=== PATIENT | female | born 1950 | race Caucasian/White ===

== ENCOUNTER → 2016-10-15 06:54 | Day surgery (SDC) | payer MEDICARE, MEDICAID ==
--- NOTE | 2016-10-06 16:52 | HP ---
PREOPERATIVE HISTORY AND PHYSICAL: DATE OF ADMISSION: 10/15/16 This patient is scheduled for Same-Day Surgery admission by Dr. Ortiz on , 10/15/16. DATE OF PREOPERATIVE HISTORY AND PHYSICAL EXAMINATION: 10/05/16 ATTENDING SURGEON: Rahul Ortiz MD (dictated by Alex Mishra NP) CHIEF COMPLAINT: Right breast cancer. HISTORY OF PRESENT ILLNESS: The patient is a 66-year-old female referred to Dr. Ortiz from Dr. Olivares for evaluation of a new right breast cancer. This was found on screening mammography. 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 She denies any palpable masses or nipple discharge or previous breast disease or previous biopsies. There is no known family history of breast or ovarian cancer. The patient was on control pills many years ago, but has not taken any kind of hormones in over [address] Ortiz examined the patient and reviewed the above findings with her and has recommended mammo-guided needle localization, wide excision of the right breast cancer with sentinel lymph node biopsy. Dr. Ortiz described the nature of the surgical procedure, the rationale for the procedure, the relevant risks, benefits, and alternatives and today, I reviewed the typical Same-Day Surgery and the expected postoperative care and recovery. The patient has had a chance to ask questions and stated that she understands the information and is satisfied with the answers given to her questions. She will sign surgical consent on the day of surgery. PAST MEDICAL HISTORY: Multiple sclerosis diagnosed approximately 40 years ago and she is essentially wheelchair bound now; hypertension; type 2 diabetes; nephrolithiasis; and admissions to [facility] for sepsis in 2016. PAST SURGICAL HISTORY: Laparoscopic cholecystectomy; kidney stone removal right and left in 2016. OB HISTORY: 2, para 2. She is postmenopausal. MEDICATIONS: 1. Baclofen 20 mg p.o. q.i.d. and 1-1/2 tablets at bedtime. 2. Nitrofurantoin 100 mg p.o. daily. 3. Carbamazepine 200 mg p.o. b.i.d. 4. Metoprolol ER 100 mg p.o. daily. 5. Oxybutynin 5 mg p.o. b.i.d. 6. Glyburide 5 mg p.o. daily. 7. Losartan 100 mg p.o. daily. 8. Advil as needed. 9. Hydrocodone/acetaminophen 5/325 mg 1 tablet every 4 to 6 hours p.r.n. and this is for back pain and she does not take it on a daily basis. 10. Multivitamin daily. ALLERGIES: LISINOPRIL caused lips and facial swelling and SULFA caused some type of unspecified reaction in childhood. FAMILY HISTORY: No known bleeding tendencies, clotting disorders, or anesthesia complications. SOCIAL HISTORY: She is and lives with her . She quit smoking over 40 years ago. She denies the use of alcohol or other substances. REVIEW OF SYSTEMS: She denies any chest pain, pressure, palpitations, or history of myocardial infarction. She is treated for hypertension. She denies any history of deep vein thrombosis or pulmonary embolism. She denies any respiratory conditions or complaints. She is a type 2 diabetic and she does not check her fingerstick blood sugars. Dr. Olivares follows her hemoglobin A1c every 6 months. She denies any previous anesthesia complications. She denies any gastrointestinal conditions or complaints. She denies any bleeding tendencies and has never received a blood transfusion. She self-catheterizes approximately 6 times a day. She has a history of bilateral kidney stones. No current pain with urination or flank pain. She was diagnosed with multiple sclerosis approximately 40 years ago and is wheelchair bound. PHYSICAL EXAMINATION GENERAL SURVEY: The patient is a 66-year-old female, in no acute distress, seated in a wheelchair. VITAL SIGNS: Height approximately 61 inches, weight 134 pounds, body mass index 25.3, blood pressure 106/70, pulse 74 and regular, respiratory rate 18, and temperature 96.9 tympanic. HEENT: Benign. NECK: Supple. No cervical lymphadenopathy. BACK: No CVA tenderness. LUNGS: Breath sounds bilaterally clear and equal. BREASTS: Symmetrical without nipple changes or nipple discharge. The right breast has a puncture site in the upper inner quadrant consistent with previous biopsy and there is faint nodularity in that region and also superficial skin irritation from a Band-Aid. Left breast without discrete masses. There is no axillary or supraclavicular lymphadenopathy bilaterally. HEART: Regular rate and rhythm. No murmurs or rubs appreciated. ABDOMEN: Active bowel sounds, soft, and nondistended. No obvious masses, but exam is limited by seated position. EXTREMITIES: Warm without skin ulcerations or edema. PELVIC: Exams deferred. RECTAL: Exams deferred. NEUROLOGIC: Alert and oriented x3. SKIN: Warm, dry, intact. IMPRESSION: Right breast cancer. PLAN: Same-Day Surgery admission to Dr. Ortiz's service on , 10/15/16 , for mammo-guided needle localization, wide excision of the right breast cancer , and sentinel lymph node biopsy. ALEX MISHRA NP CC: Rahul Ortiz MD at [facility]; Arcenio Olivares MD * [id number]/[facility] #: [id number] [facility]
[~2016-10-15 06:54] MED LIST: Buffered Lidocaine 1% SYR 3ML* 3 ML/SYR SYRINGE INTRADERM ONE; Bupivacaine 0.5% W/EPI SDV* 30 ML VIAL ONE; Dexamethasone IV* 4 MG/ML 1 ML (4 MG) ONE; DiMENhydriNATE IV* 50 MG/ML VIAL IV PUSH PRN; DiMENhydriNATE IV* 50 MG/ML VIAL ONE; EPHEDrine (Pressors)* 50 MG/ML VIAL ONE; Famotidine IV* 10 MG/ML 2 ML (20 mg) IV ONE; Famotidine IV* 10 MG/ML 2 ML (20 mg) ONE; HYDROmorphone INJ* 1 MG/ML CARPUJECT SYRINGE IV PRN; Ketorolac INJ* 30 MG/ML 1 ML VIAL ONE; Lidocaine 1% INJ* 10 MG/ML 30 ML SDV ONE; Lidocaine 2% PF * 5 ML VIAL ONE; Lidocaine 2.5%/Prilocain 2.5%* 5 GM TUBE ONE; Midazolam* 1 MG/ML 5 ML VIAL (5 MG) ONE; Ondansetron INJ* 2 MG/ML VIAL ONE; Phenylephrine IV* 40 MCG/ML 10 ML SYRINGE ONE; Propofol* 10 MG/ML 20 ML BTL IV PUSH ONE; ceFAZolin 2 GM PREMIX (*) 2 GM/50 ML BAG IVPB ONE; fentaNYL* 50 MCG/ML 2 ML VIAL (100 MCG VIAL) ONE; oxyCODONE/Acetamin 5/325 MG* TAB PO PRN
--- NOTE | 2016-10-15 10:05 | RAD ---
PROCEDURE: Mammographic needle/wire localization of the right breast PREOPERATIVE DIAGNOSIS: Breast cancer POSTOPERATIVE DIAGNOSIS: Same COMPARISONS: September 24, 2016 HEAD BAGGAGE PORTER: Kristal Andrews MD ANESTHESIA: Local anesthesia with 1% lidocaine without epinephrine FLUOROSCOPY TIME: None CONTRAST: None PROCEDURAL NARRATIVE: The procedure was explained to the patient who indicated that she understood. Written and verbal informed consent was obtained. An opportunity was given to ask and answer questions. A timeout was performed. The patient was prepped and draped in the usual sterile fashion. Using mammographic guidance, a needle/wire localization system was advanced to the target lesion in the right breast. Once position was confirmed, the needle was removed using pin pull technique. Post localization mammography was performed. The wound was dressed and the wire was secured. FINDINGS: A biopsy marker clip is noted in the right breast. After localization, the hook-wire is noted with the neck of the wire in close proximity to the biopsy marker clip SPECIMENS: Pending COMPLICATIONS: None DISPOSITION: The patient tolerated the procedure well, without complications during or immediately following the procedure. IMPRESSION: TECHNICALLY SUCCESSFUL, UNCOMPLICATED, NEEDLE/WIRE LOCALIZATION OF THE RIGHT BREAST FOR THE PURPOSES OF EXCISIONAL BIOPSY.
--- NOTE | 2016-10-15 12:09 | RAD ---
HISTORY: Breast cancer. Lymphoscintigraphy of the breast for the purposes of sentinel node identification. COMPARISONS: Mammogram dated September 24, 2016 TECHNIQUE: Previous imaging was reviewed. The procedure was explained to the patient who indicated that she understood. Written and verbal informed consent was obtained, with an opportunity to ask and answer questions. The breast was marked. A timeout was performed. The patient was prepped and draped in the usual sterile fashion. Technetium 99m sulfur colloid was administered in a subdermal fashion in 4 divided aliquots in a 180 degree arc along the areolar margin of the right breast, centered on the position of the primary breast lesion. Cine and planar imaging was performed. The first appearing axillary node was identified with the overlying skin marked. DOSE: Technetium 99m sulfur colloid, 0.316 millicuries, injected at 11:15 AM on October 15, 2016 FINDINGS: Uptake is noted within a right axillary lymph node. The site of uptake is marked on the overlying skin. OTHER: None IMPRESSION: TECHNICALLY SUCCESSFUL, UNCOMPLICATED, LYMPHOSCINTIGRAPHY OF THE RIGHT BREAST FOR THE PURPOSES OF SENTINEL NODE LOCALIZATION.
[2016-10-15 15:49] VITALS: BP 149/78
--- NOTE | 2016-10-16 03:06 | OP ---
DATE OF OPERATION: 10/15/16 [facility] DATE OF : 52 SURGEON: Dr. Ortiz. NUCLEAR ENGINEER: None. ANESTHESIOLOGIST: Dr. Peña. ANESTHESIA: General anesthetic, local infiltration. PRE-OP DIAGNOSIS: Right breast carcinoma. POST-OP DIAGNOSIS: Right breast carcinoma. OPERATIVE PROCEDURE: Needle localizing wide local excision, right breast cancer with sentinel lymph node biopsy. DESCRIPTION OF PROCEDURE: The patient was supine on the operative table. After adequate general anesthetic, compression stocking, Ann Hugger warmer, and intravenous antibiotics, the right breast and axillary region were prepped with antiseptic and draped in a sterile fashion. Local infiltrative anesthesia was administered. Incision was created in the breast approximately 5 cm in length and a piece of breast tissue approximately 6 x 5 x 4 cm is removed with the guide wire in the center. This was taken down to the pectoralis fascia and sent to x-ray with usual localizing sutures. X-ray confirmed the excision of the appropriate area and that was then forwarded on to pathology. Attention was then turned to the axilla where local anesthetic was administered. Approximately 3 to 4 cm incision was created. Dissection carried down. Two sentinel nodes were identified, one with the count of 1730 and the other with a count of 330. These were removed without difficulty. The basin count was almost nil after this and hemostasis was good. Closure was accomplished using 3- 0 and 5-0 Vicryl which was the same as closure for the breast site. Steri- Strips were placed. She tolerated the procedure well, was brought to recovery in good condition. No complications. No drains. Blood lossless than 30 mL. Sponge and instrument counts correct. Specimens as above. CC: Dr. Ortiz; Dr. Arcenio Olivares; [facility] * [id number]/[facility] #: [id number] [facility]
== END | disposition home or self-care (01) ==
LOC: OR 06:54
PROVIDERS: ATTEND Surgery
DX: C50.211 Malignant neoplasm of upper-inner quadrant of right female breast (principal); G35 Multiple sclerosis; E11.8 Type 2 diabetes mellitus with unspecified complications; Z79.84 Long term (current) use of oral hypoglycemic drugs; I10 Essential (primary) hypertension
CPT/HCPCS: 78195; 88307; 88341; 88342; A9270-GY; A9541; J0690; J1100; J1240; J1885; J2250; J2405; J2704; J3010

== ENCOUNTER 2017-06-30 14:30 | Observation (INO) | payer MEDICARE, MEDICAID ==
[2017-06-30] MEDS ORDERED: NS 0.9% IV ONE (15:33)
[2017-06-30 15:56] LABS: Hematocrit 43 % (35-47); Hemoglobin 14.6 g/dl (12.0-16.0); Mean Corpuscular HGB Conc 34 g/dl (31-36); Mean Corpuscular Hemoglobin 31 pg (27-31); Mean Corpuscular Volume 90 fL (80-97); Mean Platelet Volume 9 um3 (7.4-10.4); Red Blood Count 4.73 10^6/ul (4.0-5.4); Red Cell Distribution Width 14 % (10.5-15); White Blood Count 14.7 10^3/ul (3.5-10.8)
--- NOTE | 2017-06-30 16:10 | RAD ---
Indication: Urinary tract infection. Single frontal view of the chest performed at 1540 hours was reviewed. Comparison is made with previous exam dated July 11, 2016. No mediastinal shift is noted. Heart is of normal size and configuration. Lung nuñez appear clear. IMPRESSION: NO ACTIVE CARDIOPULMONARY DISEASE IS NOTED.
[2017-06-30 16:12] LABS: ALT 41 U/L (7-52); Albumin 4.3 g/dL (3.2-5.2); Alkaline Phosphatase 65 U/L (34-104); BUN/Creatinine Ratio 26.9 (8-20); Blood Urea Nitrogen 29 mg/dL (6-24); CO2 Carbon Dioxide 26 mmol/L (22-32); Calcium 9.9 mg/dL (8.6-10.3); Chloride 95 mmol/L (101-111); EGFR African American 65.3 (>60); EGFR Non-African American 50.8 (>60); Globulin 4.2 g/dL (2-4); Glucose 200 mg/dL (70-100); Sodium 129 mmol/L (133-145); Total Protein 8.5 g/dL (6.4-8.9)
[2017-06-30 16:19] LABS: Anion Gap 8 mmol/L (2-11)
[2017-06-30 16:20] LABS: Troponin I 0.05 ng/mL (<0.04)
[2017-06-30 16:27] LABS: Urine Bacteria 1+ (Absent); Urine Bilirubin Negative (Negative); Urine Glucose 3+(>=500 mg/dL) (Negative); Urine Nitrite Negative (Negative)
--- NOTE | 2017-06-30 17:41 | RAD ---
CLINICAL HISTORY: UTI, history of stones COMPARISON: June 10, 2016 TECHNIQUE: Multiple contiguous axial CT scans were obtained of the abdomen and pelvis, without intravenous contrast enhancement. Coronal and sagittal multiplanar reformations are submitted for review. Oral contrast was not administered. FINDINGS: The study is limited by the lack of intravenous contrast. This limits evaluation of the solid organs and vasculature. LUNG BASES: The lung bases are clear. LIVER: The liver is normal in shape, size, contour, and attenuation. BILE DUCTS: There is no intrahepatic or extrahepatic biliary dilatation. GALLBLADDER: The gallbladder is not visualized. Surgical clips are noted in the gallbladder fossa. PANCREAS: The pancreas is normal, without mass or ductal dilatation. SPLEEN: Normal in size and appearance. UPPER GI TRACT: Evaluation of the gastrointestinal tract is limited by incomplete gastric distention. The upper GI tract is unremarkable. SMALL BOWEL AND MESENTERY: The small bowel is normal in contour, course, and caliber. There is no obstruction or dilatation. COLON: The colon is normal in contour, course, caliber. There is no pericolonic inflammatory change. ADRENALS: Normal bilaterally. KIDNEYS: There is a nonobstructing left renal calyceal stone lower pole measuring 0.6 cm. BLADDER: The bladder is collapsed around a Mcwilliams catheter and is not well evaluated. PELVIC ORGANS: The uterus is fibroid. AORTA: There is calcific atherosclerotic disease of the abdominal aorta and its branches, without aneurysmal dilatation IVC: Unremarkable LYMPH NODES: There is no lymphadenopathy by size criteria. ABDOMINAL WALL: There is no evidence for abdominal wall hernia. BONES AND SOFT TISSUES: There are subcutaneous calcified granulomas along the buttocks bilaterally. OTHER: None IMPRESSION: 1. LEFT NEPHROLITHIASIS. 2. NO HYDRONEPHROSIS. 3. FIBROID UTERUS. 4. ATHEROSCLEROSIS.
[2017-06-30] MEDS ORDERED: Dextrose 50% Syringe 50 ML* 25 GM/50 ML SYRINGE IV PUSH PRN (18:00)
[2017-06-30] MEDS ORDERED: HYDROcodone/ACETAMIN 5-325 MG* 1 TAB PO PRN (18:03)
--- NOTE | 2017-06-30 18:22 | ED ---
Janeth Graham Alfonso, scribed for Hazel Michel MD on 06/30/17 at 1528 . Complex/Multi-Sys Presentation - HPI Summary HPI Summary: This patient is a 67 year old F presenting to [facility] accompanied by with a chief complaint of inability to catheterize herself since earlier today. She last self-catheterized herself yesterday. The patient rates the pain 0/10 in severity. Symptoms aggravated by nothing. Symptoms alleviated by nothing. Patient denies fever, and vomiting. She uses a wheelchair. - History Of Current Complaint Chief Complaint: EDGeneral Time Seen by Provider: 06/30/17 14:55 Hx Obtained From: Patient Onset/Duration: Sudden Onset, Lasting Hours, Still Present Timing: Constant Aggravating Factor(s): nothing Alleviating Factor(s): nothing Associated Signs And Symptoms: Negative: Vomiting, Fever - Allergies/Home Medications Allergies/Adverse Reactions: Allergies Allergy/AdvReac Type Severity Reaction Status Date / Time Lisinopril Allergy Severe facial Verified 10/15/16 07:18 swelling Sulfa Antibiotics Allergy Unknown Verified 10/15/16 07:18 Reaction Details Home Medications: Home Medications Anastrozole (NF) [Arimidex (NF)] 1 mg PO DAILY 06/30/17 [History Confirmed 06/30] Atorvastatin* [Lipitor*] 40 mg PO BEDTIME 06/30/17 [History Confirmed 06/30/17] Cholecalciferol TAB* [Vitamin D TAB*] 1,000 unit PO DAILY 06/30/17 [History Confirmed 06/30/17] Multivitamins/Minerals TAB* [Theragran/minerals TAB*] 1 tab PO DAILY 06/30/17 [ History Confirmed 06/30/17] Oxybutynin TAB* [Ditropan TAB*] 5 mg PO BID 06/30/17 [History Confirmed 06/30/17 ] carBAMazepine TAB(*) [TEGretol TAB(*)] 200 mg PO BID 06/30/17 [History Confirmed 06/30/17] glipiZIDE TAB.XL* [Glucotrol XL*] 5 mg PO DAILY 06/30/17 [History Confirmed 09/15] PMH/Surg Hx/FS Hx/Imm Hx Endocrine/Hematology History: Reports: Hx Diabetes - ON MEDS, WELL CONTROLLED PER PT Cardiovascular History: Reports: Hx Hypertension - ON MEDS GI History: Reports: Hx Gall Bladder Disease - cholecystectomy History: Reports: Hx Dialysis, Hx Kidney Infection, Hx Kidney Stones - CURRENT/ RIGHT STENT PLACEMENT, Other Problems/Disorders - neurogenic bladder - straight catherize 6-8x's a day Musculoskeletal History: Reports: Other Musculoskeletal History - MS, DOES NOT AMBULATE; IN WC, sacral pressure ulcer-almost healed Sensory History: Reports: Hx Contacts or Glasses - READING GLASSES Denies: Hx Hearing Aid Opthamlomology History: Reports: Hx Contacts or Glasses - READING GLASSES Neurological History: Reports: Hx Nerve Disease, Hx Seizures - MANY YRS AGO, Other Neuro Impairments/Disorders - MS - Cancer History Hx Chemotherapy: No Hx Radiation Therapy: No - Surgical History Surgery Procedure, Year, and Place: Cholecystectomy. LEFT STENT AND KIDNEY STONES X2. right and left kidney stone removal Hx Anesthesia Reactions: No Infectious Disease History: No Infectious Disease History: Denies: Traveled Outside the [place] in Last 30 Days - Family History Known Family History: Positive: Diabetes - Social History Lives: With Family Alcohol Use: None Substance Use Type: Reports: None Smoking Status (MU): Never Smoked Tobacco Have You Smoked in the Last Year: No Review of Systems Negative: Fever Negative: Vomiting Genitourinary: Other - inability to catheterize herself All Other Systems Reviewed And Are Negative: Yes Physical Exam - Summary Physical Exam Summary: General: Chronically ill appearing, no pain distress Skin: Warm, Skin Color Reflects Adequate Perfusion, Dry Eyes: EOMI, MARIYA ENT: Pharynx normal, TMs normal Neck: Supple, nontender Respiratory: CTA, breath sounds present, no rhonchi, no wheezes, no rales Cardiovascular: RRR, no murmur, no rub, no gallop Abdomen: Soft, nontender, distended bladder, no guarding, no rebound Bowel: Present Musculoskeletal: SANTIAGO, No edema Neuro: A&Ox3, CN intact 2-12, Doesn't move her bilateral LE. No sensations in bilateral LE. Psych: Affect/mood appropriate Triage Information Reviewed: Yes Vital Signs On Initial Exam: Initial Vitals Temp Pulse Resp BP Pulse Ox 97.8 F 73 18 97/57 98 06/30/17 14:31 06/30/17 14:31 06/30/17 14:31 06/30/17 14:31 06/30/17 14:31 Vital Signs Reviewed: Yes - Maple Coma Scale Coma Scale Total: 15 Diagnostics - Vital Signs Vital Signs Temp Pulse Resp BP Pulse Ox 06/30/17 15:12 69 19 93 06/30/17 14:31 97.8 F 73 18 97/57 98 - Laboratory Lab Results: Lab Results 06/30/17 06/30/17 06/30/17 Range/Units 15:40 15:40 15:40 WBC 14.7 H (3.5-10.8) 10^3/ul RBC 4.73 (4.0-5.4) 10^6/ul Hgb 14.6 (12.0-16.0) g/dl Hct 43 (35-47) % MCV 90 (80-97) fL MCH 31 (27-31) pg MCHC 34 (31-36) g/dl RDW 14 (10.5-15) % Plt Count 194 (150-450) 10^3/ul MPV 9 (7.4-10.4) um3 Neut % (Auto) 83.6 H (38-83) % Lymph % (Auto) 6.5 L (25-47) % [place] % (Auto) 9.4 H (1-9) % Eos % (Auto) 0.3 (0-6) % Baso % (Auto) 0.2 (0-2) % Absolute Neuts (auto) 12.3 H (1.5-7.7) 10^3/ul Absolute Lymphs (auto) 0.9 L (1.0-4.8) 10^3/ul Absolute Monos (auto) 1.4 H (0-0.8) 10^3/ul Absolute Eos (auto) 0 (0-0.6) 10^3/ul Absolute Basos (auto) 0 (0-0.2) 10^3/ul Absolute Nucleated RBC 0 10^3/ul Nucleated RBC % 0 INR (Anticoag Therapy) 0.92 (0.89-1.11) APTT 25.6 L (26.0-36.3) seconds Sodium 129 L (133-145) mmol/L Potassium TNP Chloride 95 L (101-111) mmol/L Carbon Dioxide 26 (22-32) mmol/L Anion Gap 8 (2-11) mmol/L BUN 29 H (6-24) mg/dL Creatinine 1.08 H (0.51-0.95) mg/dL Est GFR ( Amer) 65.3 (>60) Est GFR (Non-Af Amer) 50.8 (>60) BUN/Creatinine Ratio 26.9 H (8-20) Glucose 200 H (70-100) mg/dL Lactic Acid (0.5-2.0) mmol/L Calcium 9.9 (8.6-10.3) mg/dL Total Bilirubin 0.50 (0.2-1.0) mg/dL AST TNP ALT 41 (7-52) U/L Alkaline Phosphatase 65 (34-104) U/L Troponin I 0.05 H* (<0.04) ng/mL Total Protein 8.5 (6.4-8.9) g/dL Albumin 4.3 (3.2-5.2) g/dL Globulin 4.2 H (2-4) g/dL Albumin/Globulin Ratio 1.0 (1-3) Urine Color Urine Appearance Urine pH (5-9) Ur Specific [place] (1.010-1.030) Urine Protein (Negative) Urine Ketones (Negative) Urine Blood (Negative) Urine Nitrate (Negative) Urine Bilirubin (Negative) Urine Urobilinogen (Negative) Ur Leukocyte Esterase (Negative) Urine WBC (Auto) (Absent) Urine RBC (Auto) (Absent) Urine Bacteria (Absent) Urine Glucose (Negative) 06/30/17 06/30/17 06/30/17 Range/Units 15:40 15:55 16:53 WBC (3.5-10.8) 10^3/ul RBC (4.0-5.4) 10^6/ul Hgb (12.0-16.0) g/dl Hct (35-47) % MCV (80-97) fL MCH (27-31) pg MCHC (31-36) g/dl RDW (10.5-15) % Plt Count (150-450) 10^3/ul MPV (7.4-10.4) um3 Neut % (Auto) (38-83) % Lymph % (Auto) (25-47) % [place] % (Auto) (1-9) % Eos % (Auto) (0-6) % Baso % (Auto) (0-2) % Absolute Neuts (auto) (1.5-7.7) 10^3/ul Absolute Lymphs (auto) (1.0-4.8) 10^3/ul Absolute Monos (auto) (0-0.8) 10^3/ul Absolute Eos (auto) (0-0.6) 10^3/ul Absolute Basos (auto) (0-0.2) 10^3/ul Absolute Nucleated RBC 10^3/ul Nucleated RBC % INR (Anticoag Therapy) (0.89-1.11) APTT (26.0-36.3) seconds Sodium (133-145) mmol/L Potassium 4.2 Chloride (101-111) mmol/L Carbon Dioxide (22-32) mmol/L Anion Gap (2-11) mmol/L BUN (6-24) mg/dL Creatinine (0.51-0.95) mg/dL Est GFR ( Amer) (>60) Est GFR (Non-Af Amer) (>60) BUN/Creatinine Ratio (8-20) Glucose (70-100) mg/dL Lactic Acid 1.3 (0.5-2.0) mmol/L Calcium (8.6-10.3) mg/dL Total Bilirubin (0.2-1.0) mg/dL AST 27 ALT (7-52) U/L Alkaline Phosphatase (34-104) U/L Troponin I (<0.04) ng/mL Total Protein (6.4-8.9) g/dL Albumin (3.2-5.2) g/dL Globulin (2-4) g/dL Albumin/Globulin Ratio (1-3) Urine Color Yellow Urine Appearance Cloudy Urine pH 5.0 (5-9) Ur Specific [place] 1.011 (1.010-1.030) Urine Protein 2+(100 mg/dl) H (Negative) Urine Ketones Negative (Negative) Urine Blood 2+ H (Negative) Urine Nitrate Negative (Negative) Urine Bilirubin Negative (Negative) Urine Urobilinogen Negative (Negative) Ur Leukocyte Esterase 3+ H (Negative) Urine WBC (Auto) 3+(>20/hpf) H (Absent) Urine RBC (Auto) 3+(>10/hpf) H (Absent) Urine Bacteria 1+ H (Absent) Urine Glucose 3+(>=500 mg/dl) H (Negative) Result Diagrams: 06/30/17 15:40 06/30/17 16:53 Lab Statement: Any lab studies that have been ordered have been reviewed, and results considered in the medical decision making process. - Radiology CXR Radiology Interpretation Completed By: Radiologist - NO ACTIVE CARDIOPULMONARY DISEASE IS NOTED. ED physician has reviewed this radiology report and agrees. - CT A/P CT Interpretation Completed By: Radiologist - 1. LEFT NEPHROLITHIASIS. 2. NO HYDRONEPHROSIS. 3. FIBROID UTERUS. 4. ATHEROSCLEROSIS. ED physician has reviewed this radiology report and agrees. Complex Multi-Symp Course/Dx Course Of Treatment: 67 yo female wit ms and uti, low bp and elevated hr given 30cc/kg of iv fluid as a bolus and ceftriaxone case discussed with Dr. Mas for admission - Diagnoses Provider Diagnoses: Acute urinary tract infection - Physician Notifications Discussed Care Of Patient With: Naida Mas Time Discussed With Above Provider: 16:44 Instructed by Provider To: Other - Consulted Dr. Mas (hospitalist) who agrees to admit. Discharge - Discharge Plan Condition: Stable Disposition: ADMITTED TO [facility] The documentation as recorded by the Janeth smith Alfonso accurately reflects the service I personally performed and the decisions made by , Hazel Michel MD.
[2017-06-30] MEDS: NS 0.9% 1000 ML* 1,000 ML IV SCH (19:47)
--- NOTE | 2017-06-30 21:55 | HP ---
CC: Dr. Arcenio Olivaers * HISTORY AND PHYSICAL: DATE OF ADMISSION: 06/30/17 PRIMARY CARE PROVIDER: Arcenio Olivares MD ATTENDING PHYSICIAN: Giacomo Redding MD * (dictated by Netta Chavez NP) . CHIEF COMPLAINT: Generalized weakness, fatigue. HISTORY OF PRESENT ILLNESS: Ms. Em is a 67-year-old female with a past medical history significant for multiple sclerosis, seizure disorder, type 2 diabetes mellitus, hypertension, neurogenic bladder, kidney stones, and breast cancer who presents to the emergency room with her with a complaint of inability to catheterize herself since yesterday afternoon due to generalized weakness and fatigue. The patient states that it was not due to the inability to pass a catheter into her urethra, but a result of feeing to weak to get to the bathroom. The patient denied any fever, chills, chest pain, shortness of breath, cough, nausea, vomiting, or diarrhea. The patient is wheelchair bound at baseline due to her multiple sclerosis. The patient reports feeling hungry and then eating and drinking well. While in the emergency room, the patient had labs that were significant for a white blood cell count of 14.7, she had a troponin of 0.05. Urinalysis showing 2+ protein, 2+ blood, 3+ leukocyte esterase, 3+ wbc's, 3+ rbc's, 1+ bacteria, and 3+ glucose. She had a lactic acid of 1.3. While in the ER, she was noted to be hypotensive with systolic blood pressures in the 80s to 90s. She had a chest x-ray showing no active cardiopulmonary disease. She also had an abdomen and pelvis CT showing a left nephrolithiasis. No hydronephrosis, fibroid uterus or atherosclerosis. The hospitalist was asked to evaluate the patient for admission. PAST MEDICAL HISTORY: 1. Multiple sclerosis. 2. Seizure disorder. 3. Type 2 diabetes mellitus. 4. Hypertension. 5. Neurogenic bladder. 6. Breast cancer. 7. Renal calculi. PAST SURGICAL HISTORY: 1. Status post cholecystectomy. 2. Status post right breast lumpectomy. HOME MEDICATIONS: Include; 1. Multivitamin one tablet oral daily. 2. Salem 5/325 mg one tablet oral every 6 hours as needed for pain. 3. Vitamin D 1000 units orally daily. 4. Atorvastatin 40 mg orally daily at bedtime. 5. Glipizide XL 5 mg orally daily. 6. Oxybutynin 5 mg oral twice daily. 7. Metoprolol succinate 100 mg oral every morning. 8. Tegretol 200 mg oral twice daily. 9. Losartan 100 mg oral every evening. 10. Baclofen 20 mg oral four times daily and at bedtime as needed. 11. Anastrozole 1 mg oral daily. ALLERGIES: 1. LISINOPRIL. 2. SULFA. FAMILY HISTORY: The patient's father passed in his 70s from a myocardial infarction. Her paternal grandmother also had a history of coronary artery disease. The patient's father and paternal grandmother had a history of diabetes. The patient's mother passed in her 70s from leukemia. SOCIAL HISTORY: The patient denies tobacco, alcohol, or recreational drug use. She lives with her . Her , Tyrel Em will be her surrogate decision maker in the event if she is unable to make decisions for herself. REVIEW OF SYSTEMS: I performed a 14-point review of systems. All the pertinent positives and negatives are mentioned in the history of present illness. The patient denies any rashes, diarrhea. The remaining review of systems are negative. PHYSICAL EXAMINATION GENERAL APPEARANCE: The patient is alert, pleasant, appears to be in no acute distress. VITAL SIGNS: Temperature 97.8, heart rate 80, respiratory rate 13, O2 sat 94% on room air, blood pressure 92/55. HEENT: Normocephalic, atraumatic. Pupils are equal and reactive to light. Extraocular movements are intact. RESPIRATORY: There is no accessory muscle use and the lungs are clear to auscultation bilaterally. CARDIOVASCULAR: Regular rate and rhythm. S1 and S2 present. There are no murmurs, rubs, or gallops heard. ABDOMEN: Soft, kind of tender in the right lower quadrant, and nondistended. There were bowel sounds present x4. EXTREMITIES: There is no lower extremity edema. DP and PT pulses are 2+ and symmetric. MUSCULOSKELETAL: There is no clubbing or cyanosis noted. The patient exhibits good strength in all extremities. NEUROLOGIC: The patient is alert and oriented x4. Cranial nerves II through XII are grossly intact. PSYCHOLOGICAL: The patient is calm and cooperative. SKIN: There are no rashes or abnormalities seen. DIAGNOSTIC STUDIES/LABORATORY DATA: Sodium 129, potassium 4.2, chloride 95, CO2 26, BUN 29, creatinine 1.08, and glucose 200. White blood cell count 14.7, hemoglobin 14.6, hematocrit 43, and platelet count 194. Troponin 0.05. Lactic acid 1.3. Urinalysis is significant for protein 2+, blood 2+, leukocyte esterase 3+, white blood cell count 3+, rbc 3+, bacteria 1+, and glucose 3+. 1. Chest x-ray from today. Radiologist impression: No active cardiopulmonary disease is noted. 2. Abdomen and pelvis CT from today. Radiologist impression: Left nephrolithiasis, no hydronephrosis, fibroid uterus, and atherosclerosis. IMPRESSION: Ms. Em is a 67-year-old female with a past medical history significant for multiple sclerosis, seizure disorder, diabetes mellitus type 2, hypertension, neurogenic bladder, breast cancer, and renal calculi who presents to the emergency room with complaints of fatigue and generalized weakness and the inability to straight cath herself at home and was found to have a urinary tract infection. She will be admitted on observation for a possible urinary tract infection. ASSESSMENT/PLAN: 1. Urinary tract infection. The patient received a dose of ceftriaxone in the emergency room. We will continue her on ceftriaxone. The patient is meeting sepsis criteria according to systemic inflammatory response syndrome criteria with leukocytosis and tachypnea while in the emergency room. She was meeting qSOFA criteria for sepsis with 1 point for hypotension upon arrival to the ED. The patient has received a total of 1700 mL IV fluids while in the emergency room. She will be continued on normal saline. The patient had a Mcwilliams catheter placed while in the emergency room. We will continue that overnight and consider removing it in the morning. 2. Acute kidney injury. I suspect this is post renal as the patient has been unable to straight cath herself and retaining urine. We will send off a urine sodium and creatinine to check a FENa. We will also give her some IV fluids. 3. Hyponatremia. I suspect this is due to hypovolemia. We will give the patient normal saline overnight and recheck her labs in the morning. 4. Elevated troponin. The patient denies any chest pain, shortness of breath, diaphoresis or other signs of acute coronary syndrome. I suspect this is the patient's baseline and may be secondary to demand ischemia. No further workup is needed at this time. 5. Diabetes mellitus. The patient states that her glucose is well controlled at home on her glipizide. We will hold her glipizide while she is in the hospital. We will check fingersticks a.c. and h.s. with a lispro sliding scale and consistent carbohydrate diet. 6. Seizure disorder. We will continue the patient's home Tegretol and she will be placed on seizure precautions. 7. Hypertension. The patient is actually hypotensive at this time. We will hold her metoprolol succinate and losartan, I suspect part of her hypertension is in the setting of her being ill and continuing to take her antihypertensive both last night and this morning. We will resume when appropriate. 8. Fluids, electrolytes, and nutrition. The patient will be on a consistent carbohydrate diet. 9. Code status. Full code. 10. DVT prophylaxis. The patient is at high risk and will be placed on subcu heparin. 11. Disposition. Observation. TIME SPENT: The time for this admission was approximately 50 minutes, greater than half of that was spent with the patient and discussing past medical history, medications, and the events leading up to her arrival today and performing her physical examination. The case has been reviewed with the attending, Dr. Redding who agrees with the plan of care. Reviewed by ADRIÁN LUCIO 07/07/17 0915 [id number]/[facility] #: [id number] TORI
[2017-06-30] MEDS: carBAMazepine TAB(*) 200 MG PO SCH (22:40)
[2017-06-30] MEDS: Oxybutynin TAB* 5 MG PO SCH (22:40)
[2017-06-30] MEDS: Baclofen TAB* 20 MG PO SCH (22:40)
[2017-06-30] MEDS: Heparin VIAL(*) 5000 UNITS/ML VIAL (FIVE THOUSAND) SUBCUT SCH (22:40)
[2017-06-30] MEDS: Atorvastatin* 40 MG TAB PO SCH (22:40)
[2017-07-01] MEDS: Heparin VIAL(*) 5000 UNITS/ML VIAL (FIVE THOUSAND) SUBCUT SCH ×3 (05:56→21:03)
[2017-07-01 06:25] LABS: Hematocrit 34 % (35-47); Hemoglobin 11.7 g/dl (12.0-16.0); Mean Corpuscular HGB Conc 34 g/dl (31-36); Mean Corpuscular Hemoglobin 31 pg (27-31); Mean Corpuscular Volume 92 fL (80-97); Mean Platelet Volume 9 um3 (7.4-10.4); Red Blood Count 3.74 10^6/ul (4.0-5.4); Red Cell Distribution Width 14 % (10.5-15); White Blood Count 7.6 10^3/ul (3.5-10.8)
[2017-07-01] MEDS: NS 0.9% 1000 ML* 1,000 ML IV SCH ×2 (07:31→16:13)
[2017-07-01] MEDS: Insulin LISPRO* 1 UNITS UNIT SUBCUT SCH ×3 (07:36→16:20)
[2017-07-01 07:38] LABS: Calcium 8.5 mg/dL (8.6-10.3); EGFR African American 92.3 (>60); EGFR Non-African American 71.8 (>60); Potassium 3.9 mmol/L (3.5-5.0)
[2017-07-01] MEDS: carBAMazepine TAB(*) 200 MG PO SCH ×2 (09:39→21:02)
[2017-07-01] MEDS: Multivitamins/Minerals TAB PO SCH (09:39)
[2017-07-01] MEDS: Cholecalciferol TAB* 1000 UNITS PO SCH (09:39)
[2017-07-01] MEDS: Oxybutynin TAB* 5 MG PO SCH ×2 (09:39→21:02)
[2017-07-01] MEDS: Baclofen TAB* 20 MG PO SCH ×4 (09:39→21:02)
--- NOTE | 2017-07-01 12:21 | PN ---
Subjective Date of Service: 07/01/17 Interval History: Patient seen and examined at bedside. Pt states that she is feeling much better today. Denies fever, chills, shortness of breath, chest discomfort, N/V/D. Pt feels that she may be ready for discharge later today. Pt's is nervous to take her home today, because he always feels she gets sent home to early and has to come back. Family History: Unchanged from Admission Social History: Unchanged from Admission Past Medical History: Unchanged from Admission Objective Active Medications: Hydrocodone Bitart/Acetaminophen (Oliver 5-325 Tab*) 1 tab PO Q6H PRN Reason: PAIN Atorvastatin Calcium (Lipitor*) 40 mg PO BEDTIME SIMÓN Baclofen (Lioresal Tab*) 20 mg PO QID SIMÓN Carbamazepine (Tegretol Tab(*)) 200 mg PO BID SIMÓN Cholecalciferol (Vitamin D Tab*) 1,000 units PO DAILY SIMÓN Dextrose (D50w Syringe 50 Ml*) 12.5 gm IV PUSH .FOR FS < 60 - SS PRN Reason: FS < 60 Heparin Sodium (Porcine) (Heparin Vial(*)) 5,000 units SUBCUT Q8HR SIMÓN Sodium Chloride (Ns 0.9% 1000 Ml*) 1,000 mls @ 100 mls/hr IV PER RATE SIMÓN Ceftriaxone Sodium 1,000 mg/ (Sodium Chloride) 50 mls @ 200 mls/hr IVPB Q24H SIMÓN Insulin Human Lispro (Humalog*) 0 - 5 units SUBCUT AC SIMÓN Multivitamins/Minerals (Theragran/Minerals Tab*) 1 tab PO DAILY SIMÓN Oxybutynin Chloride (Ditropan Tab*) 5 mg PO BID [facility] Vital Signs 06/30/17 06/30/17 06/30/17 18:00 19:40 23:23 Temperature 98.1 F 98.8 F Pulse Rate 83 93 Respiratory 20 18 16 Rate Blood Pressure 132/70 131/77 (mmHg) O2 Sat by Pulse 97 98 87 Oximetry 06/30/17 07/01/17 07/01/17 23:32 03:47 03:56 Temperature 98.9 F Pulse Rate 80 122 112 Respiratory 17 Rate Blood Pressure 133/60 (mmHg) O2 Sat by Pulse 94 Oximetry 07/01/17 07:28 Temperature 99.7 F Pulse Rate 115 Respiratory 16 Rate Blood Pressure 138/54 (mmHg) O2 Sat by Pulse 93 Oximetry Oxygen Devices in Use Now: None Appearance: NAD, sitting up in bed Ears/Nose/Mouth/Throat: Mucous Membranes Moist Respiratory: Symmetrical Chest Expansion and Respiratory Effort, Clear to Auscultation Cardiovascular: NL Sounds; No Murmurs; No JVD, RRR Abdominal: NL Sounds; No Tenderness; No Distention Extremities: No Edema Skin: - - Pressure injury to right lower gluteous Neurological: Alert and Oriented x 3, NL Muscle Strength and Tone Lines/Tubes/Other Access: Clean, Dry and Intact Peripheral IV - site benign Nutrition: Taking PO's Result Diagrams: 07/01/17 06:17 07/01/17 06:17 Additional Lab and Data: Assess/Plan/Problems-Billing Assessment: Ms. Em is a 67 yo female with PMH significant for MS, seizure disorder, DM, HTN, neurogenic bladder, breast cancer and renal calculi who presented to the emergency room with complaints of fatigue, generalized weakness and the inability to straight cath herself at home and was found to have a UTI. - Patient Problems (1) Acute urinary tract infection Code(s): N39.0 - URINARY TRACT INFECTION, SITE NOT SPECIFIED SNOMED Code(s): 790219756 Comment: - Afebrile and no leukocytosis - Urine culture pending - Continue ceftriaxone (2) ROSSANA (acute kidney injury) Code(s): N17.9 - ACUTE KIDNEY FAILURE, UNSPECIFIED SNOMED Code(s): 08395645 Comment: - Suspect this was pre-renal vs post-renal - Resolved after wise placement and IVFs (3) Hyponatremia Code(s): E87.1 - HYPO-OSMOLALITY AND HYPONATREMIA SNOMED Code(s): 96233033 Comment: - Suspect secondary to hypovolemia - Resolved with IVFs (4) Elevated troponin Code(s): R79.89 - OTHER SPECIFIED ABNORMAL FINDINGS OF BLOOD CHEMISTRY SNOMED Code(s): 138199939 Comment: - Denies chest pain - Suspect this is a baseline troponin - Likely secondary to demand ischemia. No further work up at this time (5) Pressure injury of skin Code(s): L89.90 - PRESSURE ULCER OF UNSPECIFIED SITE, UNSPECIFIED STAGE SNOMED Code(s): 169423005 Comment: - Pressure injury to right gluteous - Will have wound clinic eval wound - Frequent T+P (6) Diabetes Code(s): E11.9 - TYPE 2 DIABETES MELLITUS WITHOUT COMPLICATIONS SNOMED Code(s) : 90239238 Comment: - Glucose 160-180's - Continue Lispro SS (7) Multiple sclerosis Code(s): G35 - MULTIPLE SCLEROSIS SNOMED Code(s): 80154855 Comment: - Continue baclofen. - Follow up with Dr. Nur as needed. (8) Neurogenic bladder Code(s): N31.9 - NEUROMUSCULAR DYSFUNCTION OF BLADDER, UNSPECIFIED SNOMED Code (s): 695444033 Comment: - Chronic, pt straight caths at home. - Will remove urinary catheter prior to discharge (9) Seizure disorder Code(s): G40.909 - EPILEPSY, UNSP, NOT INTRACTABLE, WITHOUT STATUS EPILEPTICUS SNOMED Code(s): 794267216 Comment: - No seizure activity. - Continue tegretol and seizure precautions. (10) HTN (hypertension) Code(s): I10 - ESSENTIAL (PRIMARY) HYPERTENSION SNOMED Code(s): 31151171 Comment: - Normotensive, SBP 130's - Resume Losartan and metorpolol (11) DVT prophylaxis Code(s): LXH9023 - SNOMED Code(s): 545614450 Comment: - SQ heparin (12) Full code status Code(s): Z78.9 - OTHER SPECIFIED HEALTH STATUS SNOMED Code(s): 501282327 Status and Disposition: OBV. Discharge to home when medically stable.
[2017-07-01] MEDS ORDERED: cefTRIAXone VIAL(*) 1,000 MG in NS 0.9% 50 ML* 50 ML IVPB SCH (16:00)
[2017-07-01] MEDS ORDERED: Losartan TAB* 25 MG PO SCH (18:00)
[2017-07-01] MEDS: Atorvastatin* 40 MG TAB PO SCH (21:02)
[2017-07-01] MEDS ORDERED: Magnesium Hydroxide LIQ* 30 ML UDC PO PRN (21:08)
[2017-07-01] MEDS ORDERED: Sodium Phosphate ADULT ENEMA* 118 ml bottle PR PRN (21:08)
[2017-07-02] MEDS: Collagenase 250 MG/GM OINT* 30 GM TOPICAL SCH ×3 (03:22→09:01)
[2017-07-02] MEDS: Heparin VIAL(*) 5000 UNITS/ML VIAL (FIVE THOUSAND) SUBCUT SCH (05:39)
[2017-07-02 06:23] LABS: Hematocrit 31 % (35-47); Hemoglobin 10.4 g/dl (12.0-16.0); Mean Corpuscular HGB Conc 34 g/dl (31-36); Mean Corpuscular Hemoglobin 31 pg (27-31); Mean Corpuscular Volume 93 fL (80-97); Mean Platelet Volume 10 um3 (7.4-10.4); Red Blood Count 3.33 10^6/ul (4.0-5.4); Red Cell Distribution Width 14 % (10.5-15)
[2017-07-02] MEDS: Insulin LISPRO* 1 UNITS UNIT SUBCUT SCH ×2 (07:23→09:48)
[2017-07-02 08:55] VITALS: BP 128/55
[2017-07-02] MEDS: Multivitamins/Minerals TAB PO SCH (08:55)
[2017-07-02] MEDS: Baclofen TAB* 20 MG PO SCH (08:55)
[2017-07-02] MEDS: Cholecalciferol TAB* 1000 UNITS PO SCH (08:56)
[2017-07-02] MEDS: carBAMazepine TAB(*) 200 MG PO SCH (08:56)
[2017-07-02] MEDS: Oxybutynin TAB* 5 MG PO SCH (08:57)
[2017-07-02] MEDS ORDERED: Metoprolol Succinate XL TAB* 100 MG PO SCH ×2 (09:00)
--- NOTE | 2017-07-02 22:22 | DS ---
CC: Dr. Olivares * DISCHARGE SUMMARY: DATE OF ADMISSION: 06/30/17 DATE OF DISCHARGE: 07/02/17 PRIMARY CARE PROVIDER: Dr. Olivares. DISCHARGE DIAGNOSIS: Generalized weakness due to Escherichia coli urinary tract infection. SECONDARY DIAGNOSES: 1. Multiple sclerosis and due to that the patient is wheelchair bound and has neurogenic bladder and soft coughs. 2. History of seizure disorder. 3. History of diabetes type 2. 4. Hypertension. 5. Breast cancer, status post lumpectomy in September 2016. 6. History of renal calculi. 7. History of cholecystectomy. MEDICATIONS AT DISCHARGE: Are unchanged from admission, in addition of antibiotic and include: 1. Lipitor 40 mg daily. 2. Baclofen 20 mg 4 times a day. 3. Anastrozole 1 mg daily. 4. Cefdinir 300 mg b.i.d. for 5 days total. 5. Vitamin D 1000 units daily. 6. Hydrocodone and acetaminophen on a p.r.n. basis. 7. Cozaar 100 mg a day. 8. Metoprolol succinate 100 mg daily. 9. Multivitamin 1 tablet daily. 10. Ditropan 5 mg b.i.d. 11. Tegretol 200 mg b.i.d. 12. Glucotrol 5 mg daily. The patient is recommended to continue self-cathing as needed as previously done. Wound care nurse saw the patient in consultation, recommended Santyl dressing changes and collagen dressing changes. The patient's is aware of the recommendations. They would likely also followup with [facility]. LABORATORY DATA AND STUDIES PERFORMED DURING THE HOSPITAL STAY: Included: On 07/02/17, white blood cell count of 7.0, hemoglobin of 10.4, hematocrit of 31, and platelets of 147. Please note that the patient's hemoglobin had trended down during her hospital stay from the level of 14 to the level of 10 at discharge. I suspect this is likely due to hemodilution. The patient with no symptoms of bleeding. On 07/01/17, sodium of 134, potassium 3.9, chloride 105, carbon dioxide 21, BUN 20, creatinine 0.8. The patient's microbiology study showed urine cultures positive for over 100, 000 colonies of E. coli and were resistant to tetracycline only. HOSPITALIZATION COURSE: Lucretia Em is a 67-year-old female with history of multiple sclerosis, who is wheelchair bound, who presented complaining of generalized weakness, was noted to have E. coli UTI. She was treated about 2 days with ceftriaxone and she did very well. Today, she feels that she is able to go home. She is going to continue further treatment of 5 more days of cefdinir to continue 7 days of treatment. The patient did have a Mcwilliams catheter due to neurogenic bladder during her hospital stay, but she is going to continue to self-cath at home after discharge. We will encourage the patient in consultation for 2nd to 3rd stage decubitus ulcer that is on the patient's right buttock that is chronic. Recommended dressings with Santyl and collagen were instituted. At discharge, the patient is recommended to follow up with Dr. Olivares in 4 to 7 days for a followup. PHYSICAL EXAMINATION: At the time of discharge, blood pressure of 128/55, heart rate of 96 and regular, respiratory rate 16, oxygen saturation 99% in room air, temperature of 98.0. General: The patient is a very pleasant 67-year -old female who is in no acute distress. Alert, awake, and oriented x3. HEENT : Head: Atraumatic, normocephalic. Eyes: Pupils equal and reactive to light and accommodation. Oropharynx clear. Mucosa moist. Neck: Supple. No JVD. No bruits bilaterally. Cardiovascular: Regular rate and rhythm. No murmurs. Respiratory: Clear to auscultation bilaterally. Abdomen: Soft, nontender. Bowel sounds are present in all 4 quadrants. Extremities: There is no edema. Pulses +2 bilaterally. No clubbing or cyanosis. Neuro Evaluation: The patient is paraplegic from approximately the level of waist down. Her bilateral upper extremities are 5/5 in motor strength. Her speech is clear. On evaluation of the skin, the patient has 2 small decubitus ulcers on the right buttock/sacral area. One is covered with eschar and the other one is stage 3. Both of them approximately 2 to 3 cm in diameter. There is no evidence of acute infection. Please note that this is a short summary of the patient's hospital stay. Please refer to further medical records for details. TIME SPENT: Approximately 40 minutes was spent on the patient's discharge. [id number]/[facility] #: [id number] [facility]
== END 2017-07-02 10:45 | disposition home or self-care (01) | DRG 689 ==
LOC: ED 14:30 → INTOOBSV 17:59 → OBSVTOIN 17:59 → MED 17:59 → INTOOBSV 07-01 23:52 → OBSVTOIN 07-01 23:52
PROVIDERS: ADMIT Internal Medicine; ATTEND Internal Medicine
DX: B96.29 Other Escherichia coli [E. coli] as the cause of diseases classified elsewhere (principal); N39.0 Urinary tract infection, site not specified; G35 Multiple sclerosis; G40.909 Epilepsy, unspecified, not intractable, without status epilepticus; Z85.3 Personal history of malignant neoplasm of breast; Z90.49 Acquired absence of other specified parts of digestive tract; N31.9 Neuromuscular dysfunction of bladder, unspecified; R05 Cough; R53.1 Weakness; Z79.899 Other long term (current) drug therapy; Z88.2 Allergy status to sulfonamides; Z91.09 Other allergy status, other than to drugs and biological substances; E87.1 Hypo-osmolality and hyponatremia; I12.0 Hypertensive chronic kidney disease with stage 5 chronic kidney disease or end stage renal disease; E11.22 Type 2 diabetes mellitus with diabetic chronic kidney disease; N18.6 End stage renal disease; Z99.2 Dependence on renal dialysis; D25.9 Leiomyoma of uterus, unspecified; N13.30 Unspecified hydronephrosis
CPT/HCPCS: 36415; 71010; 74176; 80048; 80053; 81003; 81015; 83605; 84484; 85025; 85610; 85730; 87040; 87077; 87086; 87186; 93005; 96365; 99284; A9270-GY; G0378; J0696; J1644

== ENCOUNTER 2018-03-01 03:08 | Inpatient (IN) | payer MEDICARE, MEDICAID ==
[2018-03-01] MEDS ORDERED: Acetaminophen TAB* 325 MG PO ONE ×2 (03:19→07:35)
[2018-03-01] MEDS ORDERED: NS 0.9% 1000 ML*IV.FLUID IV ONE (03:19)
[2018-03-01] MEDS ORDERED: Piperacillin/Tazobac ADVAN(*) 3.375 GM in NS 0.9% 100 ML* 100 ML IVPB ONE (03:21)
[2018-03-01] MEDS ORDERED: Vancomycin(*) 1,000 MG in NS 0.9% 250 ML* 250 ML IVPB ONE (03:21)
[2018-03-01 05:01] LABS: Urine Appearance Cloudy; Urine Blood 1+ (Negative); Urine Color Yellow; Urine Ketones Negative (Negative); Urine Protein 1+(30 mg/dL) (Negative); Urine Specific Gravity 1.011 (1.010-1.030); Urine Urobilinogen Negative (Negative)
[2018-03-01] MEDS ORDERED: Ondansetron INJ* 2 MG/ML VIAL IV ONE (05:48)
[2018-03-01] MEDS ORDERED: Ondansetron INJ* 2 MG/ML VIAL ONE (05:49)
--- NOTE | 2018-03-01 07:10 | ED ---
Kayli Graham Jade, scribed for Rossi Kimbrough MD on 03/01/18 at 0340 . Complex/Multi-Sys Presentation - HPI Summary HPI Summary: Pt is a 67 y/o female who presents to the ED c/o fever. As per , she currently has a UTI, and today became disoriented and had a decreased appetite. Pt c/o fatigue and fever. She denies any weakness, N/V, or pain. Pt is bed- bound due to MS, and has an extensive history of urosepsis and kidney stones. Pt had stents placed and has a neurogenic bladder. - History Of Current Complaint Chief Complaint: EDFever Time Seen by Provider: 03/01/18 03:25 Hx Obtained From: Patient, Family/Media Director - Onset/Duration: Gradual Onset, Worse Since Timing: Constant Aggravating Factor(s): UTI Associated Signs And Symptoms: Positive: Confusion, Fever. Negative: Weakness, Nausea, Vomiting Related History: Similar Episode/Diagnosed As: - Urosepsis, kidney stones - Allergies/Home Medications Allergies/Adverse Reactions: Allergies Allergy/AdvReac Type Severity Reaction Status Date / Time lisinopril Allergy Mild Swelling Verified 03/01/18 03:14 Sulfa (Sulfonamide AdvReac Intermediate Unknown Verified 03/01/18 03:14 Antibiotics) Reaction Details PMH/Surg Hx/FS Hx/Imm Hx Endocrine/Hematology History: Reports: Hx Diabetes - ON MEDS, WELL CONTROLLED PER PT Cardiovascular History: Reports: Hx Hypertension - ON MEDS Denies: Hx Pacemaker/ICD GI History: Reports: Hx Gall Bladder Disease - cholecystectomy History: Reports: Hx Dialysis, Hx Kidney Infection, Hx Kidney Stones - CURRENT/ RIGHT STENT PLACEMENT, Other Problems/Disorders - neurogenic bladder - straight catherize 6-8x's a day Denies: Hx Renal Disease Musculoskeletal History: Reports: Other Musculoskeletal History - MS, DOES NOT AMBULATE; IN WC, sacral pressure ulcer-almost healed Sensory History: Denies: Hx Contacts or Glasses, Hx Hearing Aid Opthamlomology History: Denies: Hx Contacts or Glasses Neurological History: Reports: Hx Seizures - MANY YRS AGO, Other Neuro Impairments/Disorders - MS Psychiatric History: Denies: Hx Panic Disorder - Cancer History Cancer Type, Location and Year: RIGHT BREAST CA W/ SURGICAL REMOVAL Hx Chemotherapy: No Hx Radiation Therapy: No - Surgical History Surgery Procedure, Year, and Place: CHOLECYSTECTOMY. R-BREAST Hx Anesthesia Reactions: No Infectious Disease History: No Infectious Disease History: Denies: Traveled Outside the [place] in Last 30 Days - Family History Known Family History: Positive: Diabetes - Social History Alcohol Use: None Substance Use Type: Reports: None Smoking Status (MU): Never Smoked Tobacco Have You Smoked in the Last Year: No Review of Systems Positive: Fever, Fatigue Positive: Other - Decreased appetite. Negative: Vomiting, Nausea Neurological: Other - Disoriented Negative: Weakness All Other Systems Reviewed And Are Negative: Yes Physical Exam - Summary Physical Exam Summary: VITAL SIGNS: Reviewed. GENERAL: Patient is a bed-bound FEMALE. Patient is not in any acute respiratory distress. HEAD AND FACE: No signs of trauma. No ecchymosis, hematomas or skull depressions. No sinus tenderness. EYES: PERRLA, EOMI x 2, No injected conjunctiva, no nystagmus. EARS: Hearing grossly intact. Ear canals and tympanic membranes are within normal limits. MOUTH: Oropharynx within normal limits. NECK: Supple, trachea is midline, no adenopathy, no JVD, no carotid bruit, no c- spine tenderness, neck with full ROM. CHEST: Symmetric, no tenderness at palpation LUNGS: Clear to auscultation bilaterally. No wheezing or crackles. CVS: Regular rate and rhythm, S1 and S2 present, no murmurs or gallops appreciated. ABDOMEN: Soft, non-tender. No rebound no guarding, and no masses palpated. Bowel sounds are hypoactive. Distended. EXTREMITIES: Lower extremity NV exam 0/5. Left UE 3/5. Right UE 2/5. NEURO: Alert and oriented x 3. No acute neurological deficits. Speech is normal and follows commands. SKIN: Dry and warm Triage Information Reviewed: Yes Vital Signs On Initial Exam: Initial Vitals Temp Pulse Resp BP Pulse Ox 100.4 F 123 20 92/56 94 03/01/18 03:09 03/01/18 03:09 03/01/18 03:09 03/01/18 03:09 03/01/18 03:09 Vital Signs Reviewed: Yes Diagnostics - Vital Signs Vital Signs Temp Pulse Resp BP Pulse Ox 03/01/18 03:09 100.4 F 123 20 92/56 94 - Laboratory Lab Results: Lab Results 03/01/18 Range/Units 04:22 Urine Color Yellow Urine Appearance Cloudy Urine pH 5.0 (5-9) Ur Specific [place] 1.011 (1.010-1.030) Urine Protein 1+(30 mg/dl) A (Negative) Urine Ketones Negative (Negative) Urine Blood 1+ A (Negative) Urine Nitrate Negative (Negative) Urine Bilirubin Negative (Negative) Urine Urobilinogen Negative (Negative) Ur Leukocyte Esterase 3+ A (Negative) Urine WBC (Auto) 3+(>20/hpf) A (Absent) Urine RBC (Auto) Trace(0-2/hpf) (Absent) Urine Bacteria 3+ A (Absent) Urine Glucose 3+(>=500 mg/dl) A (Negative) Lab Statement: Any lab studies that have been ordered have been reviewed, and results considered in the medical decision making process. - Radiology CXR Xray Interpretation: No Acute Changes - No acute process. Pending official radiology report. Radiology Interpretation Completed By: ED Physician - CT CT A/P CT Interpretation: Positive (See Comments) - 5:22 Possible stercoral colitis and fecal impaction. Small nonobstructing left renal stones. ED physician reviewed this imagine report. CT Interpretation Completed By: Radiologist - EKG 03:31 Cardiac Rate: Tachycardia - 119 bpm EKG Interpretation: Q waves in inferior leads. Normal axis. Normal intervals. Re-Evaluation - Re-Evaluation First Eval Re-Evaluation Time: 06:06 Comment: Multiple phlebotomists tried to stick the pt and were unable to. I tried to do and arterial stick, after the first attempt patient urged me to stop. She does have a small IV in right hand. Pt refused EJ/IJ insertion. Pt will stay in ER until PICC line team is in, and will get a PICC line during the day. The CT A/P revealed fecal impaction, but pt states she had a BM yesterday and normally goes every other day. Complex Multi-Symp Course/Dx Course Of Treatment: Patient was given IV antibiotics shortly after she was arrived his emergency room after blood culture was done. Referral to the order sheet for timing. Pt is a 67 y/o female who c/o fever, confusion, fatigue, fever, and decreased appetite. She currently has a UTI, and has an extensive history of urosepsis and kidney stones. She denies any weakness, N/V, or pain. A physical exam revealed lower extremity NV exam 0/5, left UE 3/5, right UE 2/ 5. A CXR revealed no acute process. A CT A/P revealed possible stercoral colitis and fecal impaction, and small nonobstructing left renal stones. An EKG revealed tachycardia at 119 bpm, Q waves in inferior leads, normal axis, normal intervals. A re-eval at 6:06 showed multiple phlebotomists tried to stick the pt and were unable to. I tried to do and arterial stick, after the first attempt patient urged me to stop. She does have a small IV in right hand. Pt refused EJ/IJ insertion. The CT A/P revealed fecal impaction, but pt states she had a BM yesterday and normally goes every other day. Pt will stay in ER until PICC line team is in, and will get a PICC line during the day. Final dx is UTI. Pending PICC line insertion and admission. - Diagnoses Provider Diagnoses: UTI (urinary tract infection) Discharge - Sign-Out/Discharge Documenting (check all that apply): Sign-Out Patient Signing out patient TO: Mira Cosby - Discharge Plan Prescriptions: Metoclopramide TAB* [Reglan TAB*] 10 mg PO Q6H PRN #20 tab PRN Reason: Nausea/Vomiting Referrals: Arcenio Olivares MD [Primary Care Provider] - The documentation as recorded by the Kayli smith Jade accurately reflects the service I personally performed and the decisions made by me, Rossi Kimbrough MD.
[2018-03-01] MEDS ORDERED: Metoclopramide IV* 5 MG/ML 2 ML VIAL IV ONE (07:36)
--- NOTE | 2018-03-01 07:36 | RAD ---
INDICATION: Fever COMPARISON: Chest x-ray June 30, 2017 TECHNIQUE: An AP portable view obtained at 0345 hours is submitted. FINDINGS: Bones/Soft Tissues: There are no acute bony findings. Cardiomediastinal: The cardiac silhouette is mildly prominent with uncoiling of the thoracic aorta. Lungs: There are chronic interstitial changes with mild interstitial prominence. The appearance unchanged. There are no focal consolidative changes. Pleura: There are no pleural effusions. Other: None IMPRESSION: MILD CHRONIC LUNG FINDINGS.
--- NOTE | 2018-03-01 07:43 | RAD ---
INDICATION: Kidney stones. Flank pain. COMPARISON: CT abdomen pelvis February 11, 2018 TECHNIQUE: Noncontrast axial source images were acquired from the level hemidiaphragms to the symphysis pubis as part of CT imaging for renal stone. Lung bases: There is mild gravity dependent atelectasis in the lung bases. Liver: The liver is normal in size. Noncontrast imaging shows no evidence of a hepatic mass or ductal dilatation. Gallbladder: Cholecystectomy. Spleen: The spleen is normal in size. The noncontrast CT appearance is normal. Pancreas: Noncontrast imaging shows no pancreatic mass or ductal dilitation. Adrenal glands: No masses are identified. Kidneys/Bladder: There is again evidence of left-sided nephrolithiasis with a 3 mm mid pole calculus and a 5 mm lower pole calculus. These are nonobstructive. There are no other calcifications of urinary significance. The noncontrast CT appearance of the kidneys is otherwise unremarkable. There is mild bilateral perinephric stranding, however. This is unchanged. There is a Mcwilliams catheter within the bladder which is partially decompressed Adenopathy: There is no evidence of intraperitoneal or retroperitoneal adenopathy. Evaluation is limited without oral contrast. Fluid collections: There are no free or localized fluid collections. Vessels: The aorta and iliac vessels are normal in caliber. There are no significant atherosclerotic changes. The IVC appears normal Pelvic organs: There is a fibroid uterus. There is no adnexal mass GI tract: The upper GI tract is unremarkable. There is a large amount retained stool. Stool in the rectal vault may result in fecal impaction. Soft tissues: No soft tissue abnormalities of the extraperitoneal abdomen or pelvis are identified. Osseous structures: There are no acute osseous findings. IMPRESSION: 1. Nonobstructive left-sided nephrolithiasis. 2. Possible fecal impaction. 3. Fibroid uterus. 4. Cholecystectomy.
[2018-03-01 09:07] LABS: ABS Basophils 0.1 10^3/ul (0-0.2); ABS Eosinophils 0.1 10^3/ul (0-0.6); ABS Lymphocytes 1.4 10^3/ul (1.0-4.8); ABS Nucleated RBC 0 10^3/ul; Eosinophil % 0.4 % (0-6); Hematocrit 39 % (35-47); Hemoglobin 13.5 g/dl (12.0-16.0); Lymphocyte % 11.1 % (25-47); Mean Corpuscular HGB Conc 34 g/dl (31-36); Mean Corpuscular Hemoglobin 32 pg (27-31); Mean Corpuscular Volume 92 fL (80-97); Mean Platelet Volume 8.8 um3 (7.4-10.4); Nucleated Red Blood Cells % 0; Platelet Count 164 10^3/ul (150-450); Red Blood Count 4.27 10^6/ul (4.00-5.40); Red Cell Distribution Width 14 % (10.5-15); White Blood Count 12.5 10^3/ul (3.5-10.8)
[2018-03-01 09:22] LABS: INR 0.94 (0.77-1.02)
[2018-03-01 09:24] LABS: EGFR Non-African American 77.3 (>60)
[2018-03-01] MEDS ORDERED: HYDROcodone/ACETAMIN 5-325 MG* 1 TAB PO PRN (10:06)
[2018-03-01] MEDS ORDERED: Dextrose 50% Syringe 50 ML* 25 GM/50 ML SYRINGE IV PUSH PRN (10:07)
[2018-03-01] MEDS ORDERED: PROCHLORPERAZINE INJ 5 MG/ML 2 ML VIAL IV PRN (10:11)
[2018-03-01] MEDS ORDERED: NS 0.9% 1000 ML* 1,000 ML IV SCH (10:15)
[2018-03-01] MEDS ORDERED: CMCS Anastrozole (NF) 1 MG TAB PO SCH (11:00)
[2018-03-01] MEDS: carBAMazepine TAB(*) 200 MG PO SCH ×2 (11:59→20:04)
[2018-03-01] MEDS: Cholecalciferol TAB* 1000 UNITS PO SCH (11:59)
[2018-03-01] MEDS: Baclofen TAB* 10 MG PO SCH ×3 (11:59→20:04)
[2018-03-01] MEDS: Metoprolol Succinate XL TAB* 100 MG PO SCH (11:59)
[2018-03-01] MEDS: cefTRIAXone(*) 1 GM in NS 0.9% 50 ML* 50 ML IVPB SCH (12:00)
--- NOTE | 2018-03-01 12:45 | HP ---
CC: Dr. Olivares; Dr. Eaton HISTORY AND PHYSICAL: DATE OF ADMISSION: 03/01/18 TIME OF EVALUATION: 09:50 a.m. PRIMARY CARE PROVIDER: Dr. Olivares. UROLOGIST: Dr. Eaton. CHIEF COMPLAINT: "She is weak" as per . HISTORY OF PRESENT ILLNESS: Mrs. Em is a 67-year-old lady with a past medical history of multiple sclerosis, seizure disorder, type 2 diabetes, hypertension, neurogenic bladder requiring self-catheterization, breast cancer, nephrolithiasis, who presents to the emergency room, brought in by her as he has noticed that the patient is weaker. She was admitted with E. coli UTI in June of 2017 and has had other episodes of UTI as outpatient. The patient's noted that for the past couple of days, she is weaker, unable to do things that she usually she can like self- catheterizing, transferring to her wheelchair. He also noticed that she was more confused, had anorexia, was not drinking enough liquids and he states that this is usually how her urinary tract infections present. He also thinks she had a fever at home, although this was not measured. There is no history of nausea, vomiting, diarrhea, abdominal pain, cough, shortness of breath or any other symptoms that would indicate different source of infection. PAST MEDICAL HISTORY: 1. Multiple sclerosis. 2. Seizure disorder. 3. Type 2 diabetes. 4. Hypertension. 5. Neurogenic bladder. The patient self-catheterizes 6 to 8 times a day. 6. Breast cancer, status post right lumpectomy, on Arimidex therapy. 7. Nephrolithiasis. MEDICATION LIST: 1. Arimidex 1 mg p.o. daily. 2. Atorvastatin 40 mg p.o. at bedtime. 3. Baclofen 20 mg p.o. q.i.d. 4. Carbamazepine 200 mg p.o. b.i.d. 5. Cholecalciferol 1000 units p.o. daily. 6. Glipizide XL 5 mg p.o. daily. 7. Hydrocodone/acetaminophen 5/325 mg 1 tablet p.o. q.6 hours as needed for pain. 8. Losartan 100 mg p.o. q.p.m. 9. Metoclopramide 10 mg p.o. q.6 hours as needed for nausea. 10. Metoprolol succinate 100 mg p.o. q.a.m. 11. Multivitamins 1 tablet p.o. daily. 12. Oxybutynin 5 mg p.o. b.i.d. ALLERGIES: With LISINOPRIL, the patient has swelling, and she had adverse reaction with SULFA, but the details are unclear. FAMILY HISTORY: Father passed in his 70s from a myocardial infarction. Her grandmother also had a history of coronary artery disease. Father and grandmother also had diabetes. Her mother passed in her 70s from leukemia. SOCIAL HISTORY: No history of tobacco, alcohol or drug use. Surrogate decision maker is her , Tyrel Em, phone number is [phone]. REVIEW OF SYSTEMS: A 14-point review of systems was performed and all the pertinent negative and positive findings are in the HPI. PHYSICAL EXAMINATION GENERAL: The patient is a pleasant elderly lady, lying in the ED stretcher, in no acute distress. VITAL SIGNS: Temperature 100.8, heart rate is 107, respiratory rate is 15, oxygen saturation is 92% on room air, blood pressure is 143/72. HEENT: Pupils are equal. Mucous membranes are moist. CHEST: Breath sounds present bilaterally with no added sounds. CVS: Normal S1, S2. Regular rate and rhythm. ABDOMEN: Soft, nontender, nondistended. Bowel sounds are present. EXTREMITIES: No edema. NEUROLOGIC: She is alert, awake and oriented x3. Appears to be very fatigue. DIAGNOSTIC STUDIES/LAB DATA: CBC showed WBC of 12.5, hemoglobin of 13.5, hematocrit of 39, platelets of 164 with 80% neutrophils. INR is 0.9 and APTT is 26.8. Chemistries showed a sodium of 138, potassium of 4.1, chloride of 106, bicarb of 23, BUN of 19, creatinine of 0.75, glucose of 220, lactic acid of 1.9, calcium of 8.4. LFTs are normal. CRP was elevated at 145. Urinalysis showed 1+ protein, 1+ blood, 3+ LE, 3+ wbc's with 3+ bacteria and 3+ glucose. Chest x-ray showed mild chronic lung findings and CT of the abdomen and pelvis showed nonobstructive left-sided nephrolithiasis, possible fecal impaction, fibroid uterus and status post cholecystectomy. There is mild bilateral perinephric stranding; however, this is unchanged from her prior CT from January 2018. ASSESSMENT AND PLAN: Mrs. Em is a 67-year-old lady with a past medical history of multiple sclerosis, seizure disorder, type 2 diabetes, hypertension, neurogenic bladder, recurrent urinary tract infection, breast carcinoma, nephrolithiasis, who presented to the emergency room with weakness, anorexia, mild confusion, found to have another episode of urinary tract infection. 1. Sepsis. The patient's presentation is compatible with sepsis with fever and tachycardia. Source is urinary tract infection. 2. Urinary tract infection (present on admission, not Mcwilliams catheter related). The patient usually self-catheterizes at home 6 to 8 times a day, but at this point, we are going to put a Mcwilliams catheter in. She had a cystoscopy scheduled as outpatient with Dr. Eaton on 03/07/18, but at this point, the plan is to treat her infection and then readdress the indication for cystoscopy. Her last urine culture from December 2017 grew pansensitive Escherichia coli. The patient will be started on ceftriaxone, IV hydration, and we will continue supportive care. 3. Multiple sclerosis. We will continue baclofen and carbamazepine. 4. Neurogenic bladder. Continue oxybutynin and instead of self-catheterization , for now the patient is going to have a Mcwilliams catheter. 5. Type 2 diabetes. We will hold her glipizide for now. Check finger-sticks a.c. and h.s. and cover with lispro sliding scale. 6. History of breast carcinoma. We will continue her Arimidex. 7. Hypertension. We will continue losartan and metoprolol with holding parameters. 8. DVT prophylaxis. The patient has a score of 3 on the DVT Prophylaxis Risk Assessment Guide. She will be started on subcutaneous heparin. 9. Code status is full. TIME SPENT: Approximately 55 minutes was spent with the patient and interview, medical records review, physical examination to complete the admission, more than half this time was spent [id number] with the patient and coordination of care. [id number] #: [id number] TORI
[2018-03-01] MEDS: Insulin LISPRO* 1 UNITS UNIT SUBCUT SCH ×5 (13:59→20:57)
[2018-03-01] MEDS: Heparin VIAL(*) 5000 UNITS/ML VIAL (FIVE THOUSAND) SUBCUT SCH ×2 (14:01→20:04)
[2018-03-01] MEDS: Losartan TAB* 25 MG PO SCH (17:13)
--- NOTE | 2018-03-01 18:19 | ED ---
Leanna Graham SooYoung, scribed for Mira Cosby MD on 03/01/18 at 0711 . Progress - Progress Note Progress Note: A 67 y/o F comes from home with history of MS, urosepsis, recurrent UTIs, self- catherization, kidney stones, stents and neurogenic bladder. Pt still has a AMANDA and nausea at bedside and was unable to sleep over night. Denies dysphagia. present at bedside. Vitals at bedside at 0713: 111 bpm, BP: 146/80 and O2 stat: 94. Pt's face is flushed after receiving IV vancomycin. Home Medications Medication Instructions Recorded Confirmed Type Metoprolol Succinate XL TAB* 100 mg PO QAM 10/09/15 03/01/18 History [Toprol XL TAB*] Losartan TAB* [Cozaar TAB*] 100 mg PO QPM 12/09/15 03/01/18 History Baclofen TAB* [Lioresal TAB*] 20 mg PO QID 01/16/16 03/01/18 History HYDROcodone/ACETAMIN 5-325 MG* 1 tab PO Q6H PRN 07/06/16 03/01/18 History [Bailey 5-325 TAB*] Anastrozole (NF) [Arimidex (NF)] 1 mg PO DAILY 06/30/17 03/01/18 History Atorvastatin* [Lipitor 40 MG*] 40 mg PO BEDTIME 06/30/17 03/01/18 History Cholecalciferol TAB* [Vitamin D 1,000 unit PO DAILY 06/30/17 03/01/18 History TAB*] Multivitamins/Minerals TAB* 1 tab PO DAILY 06/30/17 03/01/18 History [Theragran/minerals TAB*] Oxybutynin TAB* [Ditropan TAB*] 5 mg PO BID 06/30/17 03/01/18 History carBAMazepine TAB(*) [Tegretol 200 mg PO BID 06/30/17 03/01/18 History TAB(*)] glipiZIDE TAB.XL* [Glucotrol Xl*] 5 mg PO DAILY 06/30/17 03/01/18 History Metoclopramide TAB* [Reglan TAB*] 10 mg PO Q6H PRN #20 tab 03/01/18 Rx - Consult/PCP Time Called: 07:28 Consult/PCP: Dr. Menon, hospitalist Consult Reason/Comments: Discussed pt. Will contact again with lab results. - Additional EKG/XRAY/Consults Time Called: 08:15 Consult/PCP: Dr. Eaton, urology Reason/Comments: Updating on pt condition. MD will see pt. Time Called: 09:43 Consult/PCP: Dr. Menon, hospitalist Reason/Comments: Updating with lab results. Physical Exam - Summary Physical Exam Summary: Appearance: Ill appearing, moderate pain distress due to AMANDA, well-nourished, c/ o nausea Skin: Warm, color reflects adequate perfusion, dry, red face (Vancomycin just finished infusing) Head: Atraumatic Eyes: Conjunctiva clear ENT: Normal inspection Neck: Supple, no nodes, no JVD Respiratory: Lungs clear, normal breath sounds, no respiratory distress Cardio: RRR, No murmur, pulses normal, brisk capillary refill Abdomen: Soft, nontender, no masses, no gaurding, no rebound, Mcwilliams in place, declines rectal exam Bowel sounds: Present Musculoskeletal: Generalized chronic weakness of all extremities, no calf tenderness, no edema. C/o L lateral thigh pain. Psychological: Normal Neuro: Alert, muscle tone normal, no focal deficit Triage Information Reviewed: Yes Vital Signs On Initial Exam: Initial Vitals Temp Pulse Resp BP Pulse Ox 100.4 F 123 20 92/56 94 18 03:09 03/01/18 03:09 03/01/18 03:09 03/01/18 03:09 03/01/18 03:09 Vital Signs Reviewed: Yes Re-Evaluation - Re-Evaluation First Eval Re-Evaluation Time: 07:13 Change: Unchanged Comment: Pt still has AMANDA and nausea at bedside, was unable to sleep over night. Denies dysphagia. present. Pt's face is flushed after receiving IV vancomycin. Vitals at bedside at 0713: 111 bpm, BP: 146/80 and O2 stat: 94. 2 Re-Evaluation Time: 07:48 Change: Unchanged Comment: Discussing UA and final CT and CXR imaging results with pt and . Pt sees Dr. Eaton, urology. Per , pt was scanned by Dr. Eaton a few weeks ago and found small stones. She is scheduled to see him on 03/07/18. Pt had a BM yesterday, and states no need to pass stool. Pt is c/o LLE pain. 3 Re-Evaluation Time: 08:05 Change: Unchanged Comment: Pt and informed that Kemal Rosa will insert PICC line. 4 Re-Evaluation Time: 08:18 Change: Unchanged Comment: Discussed PICC line with Kemal present. Advised pt and that Dr. Eaton will be seeing pt. 5 Re-Evaluation Time: 09:49 Change: Unchanged Comment: Discussing with pt and lab results and consult with Dr. Menon , hospitalist, and plans to admit. Pt voiced understanding. Course/Dx - Course Course Of Treatment: A 67 y/o F with history of MS, urosepsis, recurrent UTIs, self-catherization, renal calculi, stents and neurogenic bladder, comes from home presenting with UTI. Mcwilliams placed. Urine sent for culture. CT shows nephroliathiasis, no ureteral lithiasis, possible fecal impaction. Discussed with Dr Eaton, uro, who agrees with management. Pt given Vancomycin and Zosyn prior to lab work due to difficult venous access. Pt admitted for IV abx and further evaluation. Hospitalist, dr. Menon, will admit. Allergies noted. High blood pressure noted. Pt medications reviewed this visit. - Diagnoses Provider Diagnoses: UTI (urinary tract infection), Poor high blood pressure control, Neurogenic bladder, Multiple sclerosis, Diabetes, Hyperglycemia due to type 2 diabetes mellitus Discharge - Sign-Out/Discharge Documenting (check all that apply): Discharge/Admit/Transfer - Adm, Receiving Sign-Out Receiving patient FROM: Rossi Kimbrough - Pending PICC and admission - Discharge Plan Condition: Stable Disposition: ADMITTED TO [facility] Prescriptions: Metoclopramide TAB* [Reglan TAB*] 10 mg PO Q6H PRN #20 tab PRN Reason: Nausea/Vomiting Referrals: Arcenio Olivares MD [Primary Care Provider] - The documentation as recorded by the Leanna smith SooYoung accurately reflects the service I personally performed and the decisions made by me, Mira Cosby MD.
[2018-03-01] MEDS: Atorvastatin* 40 MG TAB PO SCH (20:04)
[2018-03-01] MEDS: Oxybutynin TAB* 5 MG PO SCH (20:05)
[2018-03-01] MEDS: Acetaminophen TAB* 325 MG PO PRN (20:05)
[2018-03-02] MEDS: Heparin VIAL(*) 5000 UNITS/ML VIAL (FIVE THOUSAND) SUBCUT SCH ×3 (04:30→21:46)
[2018-03-02 04:48] LABS: ABS Basophils 0.1 10^3/ul (0-0.2); ABS Eosinophils 0.2 10^3/ul (0-0.6); ABS Lymphocytes 1.6 10^3/ul (1.0-4.8); ABS Monocytes 1.2 10^3/ul (0-0.8); ABS Neutrophils 8.6 10^3/ul (1.5-7.7); ABS Nucleated RBC 0 10^3/ul; Eosinophil % 1.8 % (0-6); Hematocrit 35 % (35-47); Lymphocyte % 13.8 % (25-47); Mean Corpuscular HGB Conc 34 g/dl (31-36); Mean Corpuscular Hemoglobin 32 pg (27-31); Mean Corpuscular Volume 92 fL (80-97); Mean Platelet Volume 8.5 um3 (7.4-10.4); Nucleated Red Blood Cells % 0; Platelet Count 149 10^3/ul (150-450); Red Cell Distribution Width 14 % (10.5-15); White Blood Count 11.8 10^3/ul (3.5-10.8)
[2018-03-02 05:07] LABS: EGFR Non-African American 89.6 (>60)
[2018-03-02] MEDS: Insulin LISPRO* 1 UNITS UNIT SUBCUT SCH ×7 (08:50→20:02)
[2018-03-02] MEDS: Metoprolol Succinate XL TAB* 100 MG PO SCH (08:51)
[2018-03-02] MEDS: ANASTROZOLE 1 MG PO SCH (08:51)
[2018-03-02] MEDS: carBAMazepine TAB(*) 200 MG PO SCH ×2 (08:52→20:02)
[2018-03-02] MEDS: Multivitamins/Minerals TAB PO SCH (08:52)
[2018-03-02] MEDS: Cholecalciferol TAB* 1000 UNITS PO SCH (08:52)
[2018-03-02] MEDS: Baclofen TAB* 10 MG PO SCH ×4 (08:52→20:02)
[2018-03-02] MEDS: Oxybutynin TAB* 5 MG PO SCH ×2 (08:52→20:02)
--- NOTE | 2018-03-02 11:45 | RAD ---
INDICATION: Left hip pain for 2 months COMPARISON: CT March 01, 2018 TECHNIQUE: An AP view of the pelvis and AP views of the hip in neutral and abducted position were obtained FINDINGS: Bones: There are no acute bony findings. Joint spaces: There are arthritic changes about both hips. SI joints/symphysis: The SI joints and symphysis are intact. Other: There is residual contrast within the colon from recent CT imaging. There is a calcified uterine leiomyoma IMPRESSION: MODERATE OSTEOARTHRITIC CHANGE ABOUT EACH HIP.
[2018-03-02] MEDS: cefTRIAXone(*) 1 GM in NS 0.9% 50 ML* 50 ML IVPB SCH (11:56)
--- NOTE | 2018-03-02 11:59 | PN ---
Subjective Date of Service: 03/02/18 Interval History: HOSPITALIST PROGRESS NOTE Patient seen and examined at bedside. Care reviewed and d/w Christa Cobb RN. She feels better today. More awake, appetite is improved, drinking fluids. C/o left hip pain and inguinal rash. Family History: Unchanged from Admission Social History: Unchanged from Admission Past Medical History: Unchanged from Admission Objective Active Medications: Acetaminophen (Tylenol Tab*) 650 mg PO Q6H PRN PRN Reason: pain/fever Last Admin: 03/01/18 20:05 Dose: 650 mg Hydrocodone Bitart/Acetaminophen (Wilson 5-325 Tab*) 1 tab PO Q6H PRN PRN Reason: PAIN Anastrozole (Arimidex (Nf)) 1 mg PO DAILY [facility] Last Admin: 03/02/18 08:51 Dose: 1 mg Atorvastatin Calcium (Lipitor*) 40 mg PO BEDTIME [facility] Last Admin: 03/01/18 20:04 Dose: 40 mg Baclofen (Lioresal Tab*) 20 mg PO QID [facility] Last Admin: 03/02/18 08:52 Dose: 20 mg Carbamazepine (Tegretol Tab(*)) 200 mg PO BID [facility] Last Admin: 03/02/18 08:52 Dose: 200 mg Cholecalciferol (Vitamin D Tab*) 1,000 units PO DAILY [facility] Last Admin: 03/02/18 08:52 Dose: 1,000 units Dextrose (D50w Syringe 50 Ml*) 12.5 gm IV PUSH .FOR FS < 60 - SS PRN PRN Reason: FS < 60 Heparin Sodium (Porcine) (Heparin Vial(*)) 5,000 units SUBCUT Q8HR [facility] Last Admin: 03/02/18 04:30 Dose: 5,000 units Heparin Sodium (Porcine) (Heparin Flush Picc/Ml/Cvc(*)) 1 - 3 ml FLUSH 0600, 1800 [facility]; Protocol Last Admin: 03/02/18 04:21 Dose: Not Given Ceftriaxone Sodium 1 gm/ (Sodium Chloride) 50 mls @ 200 mls/hr IVPB Q24H [facility] Last Admin: 03/01/18 12:00 Dose: 200 mls/hr Insulin Human Lispro (Humalog*) 0 units SUBCUT ACHS [facility]; Protocol Last Admin: 03/02/18 08:50 Dose: 1 units Insulin Human Lispro (Humalog*) 0 units SUBCUT AC [facility]; Protocol Last Admin: 03/02/18 08:51 Dose: 3 units Losartan Potassium (Cozaar Tab*) 100 mg PO QPM [facility] Last Admin: 03/01/18 17:13 Dose: 100 mg Metoprolol Succinate (Toprol Xl Tab*) 100 mg PO QAM [facility] Last Admin: 03/02/18 08:51 Dose: 100 mg Multivitamins/Minerals (Theragran/Minerals Tab*) 1 tab PO DAILY [facility] Last Admin: 03/02/18 08:52 Dose: 1 tab Nystatin (Nystatin Top Powder*) 1 applic TOPICAL TID [facility] Oxybutynin Chloride (Ditropan Tab*) 5 mg PO BID [facility] Last Admin: 03/02/18 08:52 Dose: 5 mg Prochlorperazine Edisylate (Compazine Inj*) 5 mg IV Q6H PRN PRN Reason: NAUSEA/VOMITING Vital Signs - 8 hr 03/02/18 03/02/18 03/02/18 07:16 07:44 11:18 Temperature 99.0 F 98.8 F Pulse Rate 98 87 Respiratory 19 18 Rate Blood Pressure 151/87 117/66 (mmHg) O2 Sat by Pulse 95 95 94 Oximetry Oxygen Devices in Use Now: None Appearance: Pleasant lady lying in bed in NAD. Eyes: No Scleral Icterus Ears/Nose/Mouth/Throat: Mucous Membranes Moist Neck: Trachea Midline Respiratory: Symmetrical Chest Expansion and Respiratory Effort, Clear to Auscultation Cardiovascular: RRR - Normal S1 and S2 Neurological: Alert and Oriented x 3 Result Diagrams: 03/02/18 04:40 03/02/18 04:40 Assess/Plan/Problems-Billing Assessment: Mrs Em is a 67yo F with PMH of MS, seizure disorder, type 2 DM, HTN, neurogenic bladder (self catheterizes at home), nephrolithiasis, breast CA, who presented to ED with lethargy, weakness, found to have an UTI. - Patient Problems (1) Sepsis Comment: - Presentation compatible with sepsis with fever and tachycardia. - Source is UTI. (2) UTI (urinary tract infection) Comment: - Urine culture is growing Klebsiella. - Continue Ceftriaxone #2. (3) Neurogenic bladder Comment: - Continue Mcwilliams catheter for now, but plan to d/c home to her usual regimen of straight cath 6-8 times a day. (4) Multiple sclerosis Comment: - Continue baclofen. (5) Seizure disorder Comment: - Continue Carbamazepine. (6) Diabetes Comment: - Continue Lispro SS. (7) HTN (hypertension) Comment: - Controlled. - Continue Losartan and metorpolol. (8) DVT prophylaxis Comment: - SQ heparin. (9) Full code status Status and Disposition: Inpatient.
[2018-03-02] MEDS: Nystatin TOP POWDER* 15 GM BTL TOPICAL SCH ×3 (12:19→20:03)
[2018-03-02] MEDS: Losartan TAB* 25 MG PO SCH (16:56)
[2018-03-02] MEDS: Acetaminophen TAB* 325 MG PO PRN (20:02)
[2018-03-02] MEDS: Atorvastatin* 40 MG TAB PO SCH (20:02)
[2018-03-03] MEDS: Heparin VIAL(*) 5000 UNITS/ML VIAL (FIVE THOUSAND) SUBCUT SCH ×3 (05:56→22:03)
[2018-03-03] MEDS: Cholecalciferol TAB* 1000 UNITS PO SCH (08:54)
[2018-03-03] MEDS: Baclofen TAB* 10 MG PO SCH ×4 (08:54→22:02)
[2018-03-03] MEDS: carBAMazepine TAB(*) 200 MG PO SCH ×2 (08:54→22:02)
[2018-03-03] MEDS: Metoprolol Succinate XL TAB* 100 MG PO SCH (08:54)
[2018-03-03] MEDS: Multivitamins/Minerals TAB PO SCH (08:54)
[2018-03-03] MEDS: Oxybutynin TAB* 5 MG PO SCH ×2 (08:54→22:02)
[2018-03-03] MEDS: Nystatin TOP POWDER* 15 GM BTL TOPICAL SCH ×3 (08:55→22:12)
[2018-03-03] MEDS: ANASTROZOLE 1 MG PO SCH (08:55)
[2018-03-03] MEDS: Insulin LISPRO* 1 UNITS UNIT SUBCUT SCH ×7 (08:55→22:03)
[2018-03-03] MEDS: Ciprofloxacin TAB* 500 MG PO SCH ×2 (11:43→22:02)
--- NOTE | 2018-03-03 12:37 | CONS ---
CONSULTATION REPORT: DATE OF CONSULT: 03/03/18 REQUESTING PHYSICIAN: Dr. Menon. CONSULTING SERVICE: Infectious Disease. REASON FOR CONSULT: Cystitis. IMPRESSION: 1. Cystitis in the setting of neurogenic bladder and self-catheterization, organisms of klebsiella s pecies resistant to ampicillin, intermediate to nitrofurantoin, and sensitive to everything else. 2. Encephalopathy present on admission due to cystitis, improving, not resolved. 3. Multiple sclerosis, complicated by neurogenic bladder. 4. History of nephrolithiasis and ureteral obstruction, none present this admission by CT imaging. 5. SULFA allergy, unknown reaction. RECOMMENDATIONS: I agree with changing her antibiotics to oral ciprofloxacin 500 mg by mouth twice a day. We will make sure she tolerates that well as she has had some issue in the past with intoleran ce to oral antibiotics and use caution with administering with doubly-positive cations. We will plan on a total of 2 weeks of antibiotic treatment. She has followup plan with Dr. Eaton for a cystoscop y in the setting of recent more frequent urinary tract infections. HISTORY OF PRESENT ILLNESS: This is a 67-year-old woman with neurogenic bladder, who self-catheteriz es 6 to 7 times a day, about a month ago had pain with catheterization, which was new. She was seen at [facility], had an antibiotic prescribed, then had a urine culture that grew leelee in mid J une about 2 weeks later for which she received fluconazole. She still was experiencing the pain with catheterization. On 02/28/18, her noticed her to be not acting like her usual self, not cassy ing sense, and that she was complaining of malaise. She was brought to the emergency room. She was febrile and hypotensive. Started on IV fluids, antibiotics. Initially received vancomycin and Zosyn , which was narrowed to ceftriaxone. Today, she was started on Cipro pills, which she is doing okay with so far. Her blood cultures were negative. Her CT scan showed nephrolithiasis on the left, but no ureteral stones, no obstruction. She denies flank pain. She has a Mcwilliams catheter now. She has a little bit of suprapubic discomfort. She had had 2 other recent run of symptoms of urinary tract infection, but it has been a few months s karthik the one previously. PAST MEDICAL HISTORY: 1. Multiple sclerosis with neurogenic bladder for which she self-catheterizes. 2. Seizure disorder. 3. Type 2 diabetes. 4. Hypertension. 5. Breast cancers, treated with lumpectomy, on Arimidex. 6. Nephrolithiasis. 7. History of ureteral stents, none now. MEDICATIONS: 1. Tylenol. 2. Arimidex. 3. Lipitor. 4. Baclofen. 5. Tegretol. 6. Cholecalciferol. 7. Cipro 500 mg by mouth twice a day. 8. Vicodin as needed. 9. Losartan. 10. Oxybutynin. ALLERGIES: LISINOPRIL caused swelling; SULFA, unknown reaction. FAMILY HISTORY: Father in the 70s with CT. Grandmother with coronary artery disease. Moth er in her 70s from leukemia. SOCIAL HISTORY: She lives with her . She is a nonsmoker. She has no travel or sick contacts . REVIEW OF SYSTEMS: A 14-point review of systems was negative except as noted above in the history of present illness. PHYSICAL EXAM: Vital Signs: Temperature 37, heart rate 85, respiratory rate 18, blood pressure 129/ 74, oxygen saturation 91% on room air. In general, she is awake, not in distress. Neurologic: She is oriented x3, follows all commands, answers most questions appropriately. HEENT: There is no conj unctival hemorrhage. Oropharynx without lesions. Neck is supple without mass. Heart has regular rat e and rhythm without murmurs, rubs, or gallops. Lungs are clear to auscultation bilaterally. Abdome n is soft, nontender, and nondistended. There is no flank or suprapubic tenderness to palpation. Sk in: There is no rash or splinter hemorrhages. Genitourinary: There is a Mcwilliams catheter present wit h clear urine. Musculoskeletal: No spine tenderness to palpation. LABORATORY DATA: White blood cell count 11, hemoglobin 12, platelets 149. Creatinine 0.6. Urinalysi s showed blood, leukocyte esterase. Please see impressions and recommendations outlined above, which I have discussed with Dr. Menon. Thanks for asking me to see Ms. Em in consultation. [id number]/[facility] #: [id number]
--- NOTE | 2018-03-03 15:01 | PN ---
Subjective Date of Service: 03/03/18 Interval History: HOSPITALIST PROGRESS NOTE Patient seen and examined at bedside. Care reviewed and d/w Brigida Contreras RN. She feels a little better today, still a little weak. Left hip pain is less intense. Family History: Unchanged from Admission Social History: Unchanged from Admission Past Medical History: Unchanged from Admission Objective Active Medications: Acetaminophen (Tylenol Tab*) 650 mg PO Q6H PRN PRN Reason: pain/fever Last Admin: 03/02/18 20:02 Dose: 650 mg Hydrocodone Bitart/Acetaminophen (Gerton 5-325 Tab*) 1 tab PO Q6H PRN PRN Reason: PAIN Anastrozole (Arimidex (Nf)) 1 mg PO DAILY [facility] Last Admin: 03/03/18 08:55 Dose: 1 mg Atorvastatin Calcium (Lipitor*) 40 mg PO BEDTIME [facility] Last Admin: 03/02/18 20:02 Dose: 40 mg Baclofen (Lioresal Tab*) 20 mg PO QID [facility] Last Admin: 03/03/18 13:04 Dose: 20 mg Carbamazepine (Tegretol Tab(*)) 200 mg PO BID [facility] Last Admin: 03/03/18 08:54 Dose: 200 mg Cholecalciferol (Vitamin D Tab*) 1,000 units PO DAILY [facility] Last Admin: 03/03/18 08:54 Dose: 1,000 units Ciprofloxacin (Cipro Tab*) 500 mg PO Q12HR [facility] Last Admin: 03/03/18 11:43 Dose: 500 mg Dextrose (D50w Syringe 50 Ml*) 12.5 gm IV PUSH .FOR FS < 60 - SS PRN PRN Reason: FS < 60 Heparin Sodium (Porcine) (Heparin Vial(*)) 5,000 units SUBCUT Q8HR [facility] Last Admin: 03/03/18 13:03 Dose: 5,000 units Heparin Sodium (Porcine) (Heparin Flush Picc/Ml/Cvc(*)) 1 - 3 ml FLUSH 0600, 1800 [facility]; Protocol Last Admin: 03/03/18 05:56 Dose: 1 ml Insulin Human Lispro (Humalog*) 0 units SUBCUT ACHS [facility]; Protocol Last Admin: 03/03/18 13:04 Dose: 6 units Insulin Human Lispro (Humalog*) 0 units SUBCUT AC [facility]; Protocol Last Admin: 03/03/18 13:04 Dose: 5 units Losartan Potassium (Cozaar Tab*) 100 mg PO QPM [facility] Last Admin: 03/02/18 16:56 Dose: 100 mg Metoprolol Succinate (Toprol Xl Tab*) 100 mg PO QAM [facility] Last Admin: 03/03/18 08:54 Dose: 100 mg Multivitamins/Minerals (Theragran/Minerals Tab*) 1 tab PO DAILY [facility] Last Admin: 03/03/18 08:54 Dose: 1 tab Nystatin (Nystatin Top Powder*) 1 applic TOPICAL TID [facility] Last Admin: 03/03/18 13:04 Dose: 1 applic Oxybutynin Chloride (Ditropan Tab*) 5 mg PO BID [facility] Last Admin: 03/03/18 08:54 Dose: 5 mg Prochlorperazine Edisylate (Compazine Inj*) 5 mg IV Q6H PRN PRN Reason: NAUSEA/VOMITING Vital Signs - 8 hr 03/03/18 03/03/18 03/03/18 07:14 07:49 11:14 Temperature 98.7 F 98.3 F Pulse Rate 85 87 Respiratory 18 20 17 Rate Blood Pressure 129/74 116/67 (mmHg) O2 Sat by Pulse 91 91 94 Oximetry Oxygen Devices in Use Now: None Appearance: Pleasant lady sitting up in a recliner in [place]. Eyes: No Scleral Icterus Ears/Nose/Mouth/Throat: Mucous Membranes Moist Neck: Trachea Midline Respiratory: Symmetrical Chest Expansion and Respiratory Effort, Clear to Auscultation Cardiovascular: RRR - Normal S1 and S2 Neurological: Alert and Oriented x 3 Result Diagrams: 03/02/18 04:40 03/02/18 04:40 Assess/Plan/Problems-Billing Assessment: Mrs Em is a 67yo F with PMH of MS, seizure disorder, type 2 DM, HTN, neurogenic bladder (self catheterizes at home), nephrolithiasis, breast CA, who presented to ED with lethargy, weakness, found to have an UTI. - Patient Problems (1) Sepsis Comment: - Presentation compatible with sepsis with fever and tachycardia. - Source is UTI. (2) UTI (urinary tract infection) Comment: - Urine culture is growing Klebsiella sensitive to Cipro. - Will d/c Ceftriaxone and start Cipro. (3) Neurogenic bladder Comment: - D/c Mcwilliams catheter and resume her usual regimen of straight cath 6-8 times a day. (4) Multiple sclerosis Comment: - Continue baclofen. (5) Seizure disorder Comment: - Continue Carbamazepine. (6) Diabetes Comment: - Continue Lispro SS. (7) HTN (hypertension) Comment: - Controlled. - Continue Losartan and metorpolol. (8) DVT prophylaxis Comment: - SQ heparin. (9) Full code status Status and Disposition: Inpatient. Anticipate d/c in AM.
[2018-03-03] MEDS: Losartan TAB* 25 MG PO SCH (18:06)
[2018-03-03] MEDS: Atorvastatin* 40 MG TAB PO SCH (22:02)
[2018-03-04] MEDS: Heparin VIAL(*) 5000 UNITS/ML VIAL (FIVE THOUSAND) SUBCUT SCH (05:30)
[2018-03-04] MEDS: Insulin LISPRO* 1 UNITS UNIT SUBCUT SCH ×3 (09:23→12:10)
[2018-03-04] MEDS: ANASTROZOLE 1 MG PO SCH (09:24)
[2018-03-04] MEDS: Multivitamins/Minerals TAB PO SCH (09:26)
[2018-03-04] MEDS: Baclofen TAB* 10 MG PO SCH (09:27)
[2018-03-04] MEDS: Metoprolol Succinate XL TAB* 100 MG PO SCH (09:28)
[2018-03-04] MEDS: Ciprofloxacin TAB* 500 MG PO SCH (09:29)
[2018-03-04] MEDS: Oxybutynin TAB* 5 MG PO SCH (09:30)
[2018-03-04] MEDS: Cholecalciferol TAB* 1000 UNITS PO SCH (09:30)
[2018-03-04] MEDS: carBAMazepine TAB(*) 200 MG PO SCH (09:31)
[2018-03-04] MEDS: Nystatin TOP POWDER* 15 GM BTL TOPICAL SCH (09:32)
[2018-03-04 11:25] VITALS: BP 100/55
--- NOTE | 2018-03-05 04:21 | DS ---
CC: Dr. Olivares; Dr. Eaton; Dr. Brewer DISCHARGE SUMMARY: DATE OF ADMISSION: 03/01/18 DATE OF DISCHARGE: 03/04/18 PRIMARY CARE PROVIDER: Dr. Olivares. UROLOGIST: Dr. Eaton. CONSULTING INFECTIOUS DISEASE SPECIALITY: Dr. Brewer. DISCHARGE DIAGNOSES: 1. Klebsiella ornithinolytica cystitis, present on admission, not Mcwilliams catheter related. 2. Encephalopathy secondary to cystitis. 3. Known obstructing nephrolithiasis. 4. Sepsis present on admission. 5. Neurogenic bladder secondary to multiple sclerosis. 6. Left hip pain likely secondary to osteoarthritis. SECONDARY DIAGNOSES: 1. Multiple sclerosis. 2. Seizure disorder. 3. Type 2 diabetes. 4. Hypertension. 5. Neurogenic bladder. The patient self catheterizes 6 to 8 times a day. 6. Breast carcinoma, status post right lumpectomy, on Arimidex therapy. MEDICATIONS: 1. Arimidex 1 mg p.o. daily. 2. Cholecalciferol 1000 units p.o. daily. 3. Baclofen 20 mg p.o. 4 times a day. 4. Atorvastatin 40 mg p.o. at bedtime. 5. Oxybutynin 5 mg p.o. b.i.d. 6. Multivitamin 1 tablet p.o. daily. 7. Metoprolol succinate 100 mg p.o. q.a.m. 8. Losartan 100 mg p.o. q. p.m. 9. [place]ester 5/325 mg 1 tablet p.o. q.6 hours p.r.n. pain. 10. Glipizide 5 mg p.o. daily. 11. Carbamazepine 200 mg p.o. b.i.d. 12. Metoclopramide 10 mg p.o. q.6 hours p.r.n. nausea and vomiting. 13. Acetaminophen 650 mg p.o. q.6 hours p.r.n. pain or fever. 14. Ciprofloxacin 500 mg p.o. q.12 hours for 10 more days. 15. Nystatin powder to inguinal area t.i.d. HOSPITAL COURSE: Mrs. Em is a 67-year-old lady with a past medical history as stated above that presented to the emergency room brought in by her due to weakness. The patient had an episode of severe sepsis secondary to UTI in the past and her is able to recognize early signs of sepsis, so he brought her to the emergency room the moment he noticed that she was weaker and a little confused. In the emergency room her UA showed 1+ protein, 1+ blood, 3+ LE, 3+ wbc's, 3+ bacteria. Renal function was normal and she had mild leukocytosis of 12.5. A CT of the abdomen and pelvis without contrast showed nonobstructive left- sided nephrolithiasis, possible fecal infection, fibroid uterus status post cholecystectomy. The patient was admitted to the hospital and she was started empirically on ceftriaxone. A Mcwilliams catheter was placed. Urine culture grew Klebsiella ornithinolytica resistant to ampicillin and intermediate to nitrofurantoin. At that point, she was switched to ciprofloxacin. She was seen in consultation by Infectious Disease (Dr. Brewer) and his impression was the patient had cystitis in the setting of neurogenic bladder and self catheterization with organism being klebsiella species resistant to ampicillin and intermediate to nitrofurantoin and sensitive to everything else. His recommendation was for ciprofloxacin 500 mg twice a day to complete 2 weeks of antibiotic treatment and to follow up with Dr. Eaton for cystoscopy after her treatment is completed. The patient had improvement of her mental status and appears to be back at her baseline. She is still weak, but the states that she is close to her usual as he has to carry her when transferring from bed to wheelchair. He did not feel that physical therapy would be of any assistance. The patient also had complaints of left hip pain. Her CT of the abdomen and pelvis showed no acute osseous findings and hip and pelvis x-ray was also negative for fractures and showed moderate osteoarthritic change bilaterally. The patient received Tylenol with pain relief and she was also advised to avoid NSAIDs including Advil due to side effects. If her pain persists, she may need further workup as outpatient with her primary care provider. She was also found to have an inguinal rash compatible of intertrigo and she is being treated with a nystatin powder. The patient is noted to be stable for discharge, to follow up with her primary care provider and Dr. Eaton as outpatient. PHYSICAL EXAMINATION: Vital Signs: Temperature 97.9, heart rate is 73, respiratory rate is 20, oxygen saturation 94% on room air, blood pressure is 100 /55. General: The patient is a pleasant elderly lady, sitting up in the chair , in no acute distress. CVS: Normal S1, S2. Regular rate and rhythm. Chest: Breath sounds present bilaterally with no added sounds. Abdomen is soft. Bowel sounds are present. Neuro: She is alert and oriented x3. DIET: Low-salt consistent carb diet. ACTIVITY: As tolerated. DISPOSITION: To home. STATUS WHILE IN THE HOSPITAL: Inpatient. Please keep in mind this is a summarized version of this patient's hospital stay. If you need for information, please feel free to call me at [phone] or please obtain the full medical records. TIME SPENT: Approximately 45 minutes were spent to complete this discharge. [id number]/[facility] #: [id number] [facility]
== END 2018-03-04 12:30 | disposition home or self-care (01) | DRG 871 ==
LOC: ED 03:08 → MED 10:03 → OBSVTOIN 03-02 12:10 → MED 03-03 11:44
PROVIDERS: ADMIT Internal Medicine; ATTEND Internal Medicine
PROC: 02HV33Z Insertion of Infusion Device into Superior Vena Cava, Percutaneous Approach (ICD-10-PCS; principal; 2018-03-02)
PROC: 0T9B70Z Drainage of Bladder with Drainage Device, Via Natural or Artificial Opening (ICD-10-PCS; 2018-03-04)
DX: A41.9 Sepsis, unspecified organism (principal); G93.49 Other encephalopathy; I10 Essential (primary) hypertension; N31.9 Neuromuscular dysfunction of bladder, unspecified; Z96.0 Presence of urogenital implants; G35 Multiple sclerosis; E11.65 Type 2 diabetes mellitus with hyperglycemia; B96.1 Klebsiella pneumoniae [K. pneumoniae] as the cause of diseases classified elsewhere; D25.9 Leiomyoma of uterus, unspecified; L30.4 Erythema intertrigo; Z16.11 Resistance to penicillins; M16.12 Unilateral primary osteoarthritis, left hip; G40.909 Epilepsy, unspecified, not intractable, without status epilepticus; N20.0 Calculus of kidney; N30.90 Cystitis, unspecified without hematuria; Z88.2 Allergy status to sulfonamides; Z80.6 Family history of leukemia; Z88.8 Allergy status to other drugs, medicaments and biological substances; Z90.49 Acquired absence of other specified parts of digestive tract; Z85.3 Personal history of malignant neoplasm of breast; Z90.11 Acquired absence of right breast and nipple; Z82.49 Family history of ischemic heart disease and other diseases of the circulatory system; Z79.84 Long term (current) use of oral hypoglycemic drugs
CPT/HCPCS: 36415; 71045; 74176; 80048; 80053; 81003; 81015; 83605; 84484; 85025; 85610; 85730; 86140; 87040; 87077; 87086; 87186; 93005; 99285; A9270-GY; C1751; G0378; J0696; J0780; J1644; J2405; J2543; J2765; J3370

== ENCOUNTER 2018-09-24 18:07 | Inpatient (IN) | payer MEDICARE, MEDICAID ==
--- NOTE | 2018-09-24 19:05 | ED ---
Altered Mental Status - HPI Summary HPI Summary: Pt is 68 y/o F who presents to ED with her c/o altered mental status. reports that three days ago she had an elective stent procedure on her left kidney performed by Dr. Eaton. The day following the procedure she was a little disoriented, but yesterday it seemed as if she was back to normal. This morning when she woke up pt was more disoriented, unable to place her catheter as she normally does, and unable to remember conversations. Pt has Hx of urinary infections and kidney stones and these symptoms were similar to other times she has had infections. reports that yesterday she had a fever of 101.7. He also notes she has decreased appetite, nausea, and back pain. He denies that pt has vomited. When pt is asked questions she is disoriented and unable to answer the question asked. - History Of Current Complaint Chief Complaint: EDAltMentalStatus Stated Complaint: AMS Time Seen by Provider: 09/24/18 18:54 Hx Obtained From: Patient, Family/Carrot Tier Hx From Patient Unobtainable Due To: Altered Mental Status Last Known Well Date: 09/23/18 Onset/Duration: Still Present, Suddenly Timing: Constant, Lasting Hours Character: Confusion Aggravating Factor(s): Nothing Alleviating Factor(s): Nothing Associated Signs And Symptoms: Positive: Nausea, Fever. Negative: Vomiting - Allergies/Home Medications Allergies/Adverse Reactions: Allergies Allergy/AdvReac Type Severity Reaction Status Date / Time lisinopril Allergy Mild Swelling Verified 09/24/18 18:17 Sulfa (Sulfonamide AdvReac Intermediate Unknown Verified 09/24/18 18:17 Antibiotics) Reaction Details PMH/Surg Hx/FS Hx/Imm Hx Endocrine/Hematology History: Reports: Hx Diabetes - TYPE II- ON ORAL MEDICATION AND DIET CONTROLS PER Cardiovascular History: Reports: Hx Hypertension - ON MEDICATION FOR Denies: Hx Pacemaker/ICD GI History: Reports: Hx Gall Bladder Disease - cholecystectomy History: Reports: Hx Dialysis, Hx Kidney Infection, Hx Kidney Stones - HX OF AND CURRENTLY, Other Problems/Disorders - HYDRONEPHROSIS Denies: Hx Renal Disease Musculoskeletal History: Reports: Other Musculoskeletal History - MS, DOES NOT AMBULATE; IN WC, sacral pressure ulcer-almost healed PER [facility] Sensory History: Reports: Hx Contacts or Glasses - READING GLASSES Denies: Hx Hearing Aid Opthamlomology History: Reports: Hx Contacts or Glasses - READING GLASSES Neurological History: Reports: Hx Nerve Disease, Hx Seizures - MANY YEARS AGO- ON MEDICATION FOR, Other Neuro Impairments/Disorders - MULTIPLE SCLEROSIS Psychiatric History: Denies: Hx Panic Disorder - Cancer History Cancer Type, Location and Year: RIGHT BREAST CA W/ SURGICAL REMOVAL Hx Chemotherapy: No Hx Radiation Therapy: No - Surgical History Surgery Procedure, Year, and Place: CHOLECYSTECTOMY. RIGHT BREAST-LUMPECTOMY. KIDNEY STONE PROCEDURES Hx Anesthesia Reactions: No Infectious Disease History: No Infectious Disease History: Denies: Traveled Outside the [place] in Last 30 Days - Family History Known Family History: Positive: Diabetes, Other - non contributory - Social History Alcohol Use: None Substance Use Type: Reports: None Smoking Status (MU): Former Smoker Amount Used/How Often: X 1-2 YEARS Have You Smoked in the Last Year: No Review of Systems - ROS Summary Review of Systems Summary: Complete ROS unable to be obtained due to level 5 caveat of pt's altered mental status. Positive: Fever Positive: Nausea, Other - decreased appetite. Negative: Vomiting Positive: Other - back pain Neurological: Other - Disoriented, altered mental status All Other Systems Reviewed And Are Negative: No Physical Exam - Summary Physical Exam Summary: Appearance: Well-appearing, Well-nourished, lying in bed comfortably Skin: Warm, dry, no obvious rash Eyes: sclera anicteric, no conjunctival pallor ENT: mucous membranes moist, pharynx appears normal Neck: Supple, nontender Respiratory: Clear to auscultation, no signs of respiratory distress Cardiovascular: Normal S1, S2. No murmurs. Normal distal pulses in tibial and radial bilaterally. Abdomen: Soft, nontender, normal active bowel sounds present Musculoskeletal: Normal, Strength/ROM Intact Neurological: Altered mental status, confused and has rambling conversations, awake and alert Psychiatric: affect is normal, does not appear anxious or depressed Triage Information Reviewed: Yes Vital Signs On Initial Exam: Initial Vitals Temp Pulse Resp BP Pulse Ox 96.4 F 97 19 180/107 97 09/24/18 18:13 09/24/18 18:13 09/24/18 18:13 09/24/18 18:13 09/24/18 18:13 Vital Signs Reviewed: Yes Diagnostics - Vital Signs Vital Signs Temp Pulse Resp BP Pulse Ox 09/24/18 18:13 96.4 F 97 19 180/107 97 - Laboratory Result Diagrams: 09/24/18 20:13 09/24/18 23:49 Lab Statement: Any lab studies that have been ordered have been reviewed, and results considered in the medical decision making process. Altered Mental Statu Course/Dx - Course Course Of Treatment: Pt is 68 y/o F who presents to ED with her c/o altered mental status. reports that three days ago she had an elective stent procedure on her left kidney performed by Dr. Eaton. The day following the procedure she was a little disoriented, but yesterday it seemed as if she was back to normal. This morning when she woke up pt was more disoriented, unable to place her catheter as she normally does, and unable to remember conversations. Pt has Hx of urinary infections and kidney stones and these symptoms were similar to other times she has had infections. When pt is asked questions she is disoriented and unable to answer the question asked. Physical exam revealed altered mental status and confusion. Labs revealed that her lactic acid levels were elevated at 3.1 mmol/L. Spoke with Dr. Morales at 23:05 who agreed to admit pt. Pt diagnosed with acute delirium and urinary tract infection, and will be admitted. - Diagnoses Provider Diagnoses: Acute delirium, Urinary tract infection - Provider Notifications Discussed Care Of Patient With: Sherice Morales Time Discussed With Above Provider: 23:05 Instructed by Provider To: Other - Admit Discharge - Sign-Out/Discharge Documenting (check all that apply): Patient Departure - Admit - Discharge Plan Condition: Stable Disposition: ADMITTED TO [facility] - Billing Disposition and Condition Condition: STABLE Disposition: Admitted to [facility] - Attestation Statements Document Initiated by Scribe: Yes Documenting Scribe: Olga Hale Provider For Whom Scribe is Documenting (Include Credential): Dr. Tee Cruz MD Scribe Attestation: Olga Graham scribed for Dr. Tee Cruz MD on 09/25/18 at 0042. Scribe Documentation Reviewed: Yes Provider Attestation: The documentation as recorded by the Olga smith accurately reflects the service I personally performed and the decisions made by me, Dr. Tee Cruz MD Status of Scribe Document: Viewed
[2018-09-24] MEDS ORDERED: cefTRIAXone(*) 1 GM in NS 0.9% 50 ML* 50 ML IVPB ONE (20:14)
[2018-09-24 20:21] LABS: ABS Basophils 0 10^3/ul (0-0.2); ABS Eosinophils 0.2 10^3/ul (0-0.6); ABS Lymphocytes 1.2 10^3/ul (1.0-4.8); ABS Monocytes 1.5 10^3/ul (0-0.8); ABS Neutrophils 8.9 10^3/ul (1.5-7.7); ABS Nucleated RBC 0 10^3/ul; Eosinophil % 1.9 %; Hematocrit 41 % (35-47); Hemoglobin 13.9 g/dl (12.0-16.0); Lymphocyte % 10.4 %; Mean Corpuscular HGB Conc 34 g/dl (31-36); Mean Corpuscular Hemoglobin 31 pg (27-31); Mean Corpuscular Volume 92 fL (80-97); Mean Platelet Volume 9.7 fL (7.4-10.4); Nucleated Red Blood Cells % 0.1; Platelet Count 189 10^3/ul (150-450); Red Blood Count 4.45 10^6/ul (4.00-5.40); Red Cell Distribution Width 13 % (10.5-15); White Blood Count 11.8 10^3/ul (3.5-10.8)
[2018-09-24] MEDS ORDERED: oxyCODONE/Acetamin 5/325 MG* TAB PO ONE (20:31)
[2018-09-24 20:37] LABS: Albumin 4.1 g/dL (3.2-5.2); BUN/Creatinine Ratio 35.9 (8-20); Calcium 10.7 mg/dL (8.6-10.3); EGFR African American 55.8 (>60); EGFR Non-African American 46.1 (>60); Globulin 4.3 g/dL (2-4); Total Bilirubin 0.4 mg/dL (0.2-1.0); Total Protein 8.4 g/dL (6.4-8.9)
[2018-09-24 20:39] LABS: Potassium 4.7 mmol/L (3.5-5.0); Troponin I 0.03 ng/mL (<0.04)
[2018-09-24 21:04] LABS: Urine Appearance Turbid; Urine Bacteria Absent (Absent); Urine Bilirubin Negative (Negative); Urine Blood 2+ (Negative); Urine Color Yellow; Urine Glucose 3+(>=500 mg/dL) (Negative); Urine Ketones Negative (Negative); Urine Nitrite Negative (Negative); Urine Protein 2+(100 mg/dL) (Negative); Urine Red Blood Cell 3+(>10/hpf) (Absent); Urine Specific Gravity 1.015 (1.010-1.030); Urine Urobilinogen Negative (Negative); Urine White Blood Cell 3+(>20/hpf) (Absent)
[2018-09-24 21:18] LABS: TSH (Thyroid Stimulating Horm) 2.99 mcIU/mL (0.34-5.60)
[2018-09-24] MEDS ORDERED: Ondansetron INJ* 2 MG/ML VIAL ONE (21:20)
[2018-09-24] MEDS ORDERED: Ondansetron ODT TAB* 4 MG SL ONE (21:20)
[2018-09-24] MEDS ORDERED: Nystatin TOP POWDER* 15 GM BTL TOPICAL PRN (23:28)
[2018-09-24] MEDS ORDERED: Labetalol IV* 5 MG/ML 20 ML VIAL IV PUSH ONE (23:34)
[2018-09-24] MEDS ORDERED: Ondansetron INJ* 2 MG/ML VIAL IV PRN (23:35)
[2018-09-24] MEDS ORDERED: Dextrose 50% Syringe 50 ML* 25 GM/50 ML SYRINGE IV PUSH PRN (23:38)
--- NOTE | 2018-09-24 23:46 | ADMNOTE ---
Subjective Date of Service: 09/24/18 - HISTORY AND PHYSICAL Interval History: HISTORY AND PHYSICAL CHIEF COMPLAINT: Altered mental status HISTORY OF PRESENTING ILLNESS: This is a 68 year old female with multiple sclerosis, resulting neurogenic bladder, with self catheterization, frequent urinary tract infections and kidney stones who is in the emergency room because of altered mental status. Three days ago, patient had left ureteral stent placed for left hydronephrosis in setting of kidney stone. The procedure went well, and she did receive amy-operative antibiotics. Her was concerned about her mentation and subsequently she was brought to the emergency room. The day after the surgery, she felt ill and disoriented, but attributed this to post anesthesia affect. Subsequently yesterday (two days after surgery) she felt well. However she woke up today very disoriented, confused, nauseous with burning with urination. Was also having fever, per Temp of 100.1F. PAST MEDICAL HISTORY Multiple sclerosis Neurogenic bladder Frequent Urinary tract infection kidney stones Diabetes Hypertension seizure disorder PAST SURGICAL HISTORY Left breast lumpectomy ureteral stent SOCIAL HISTORY Lives at home with Does not smoke No alcohol use FAMILY HISTORY Mother: leukemia Home medications Metoprolol Succinate XL TAB* [Toprol XL TAB*] 100 mg PO QAM 10/09/15 [History Confirmed 09/24/18] Losartan TAB* [Cozaar TAB*] 100 mg PO QPM 12/09/15 [History Confirmed 09/24/18] Baclofen TAB* [Lioresal TAB*] 20 mg PO QID 01/16/16 [History Confirmed 09/24/18] HYDROcodone/ACETAMIN 5-325 MG* [[place] 5-325 TAB*] 1 tab PO Q6H PRN 07/06/16 [ History Confirmed 09/24/18] Anastrozole (NF) [Arimidex (NF)] 1 mg PO 1200 06/30/17 [History Confirmed ] Atorvastatin* [Lipitor 40 MG*] 40 mg PO BEDTIME 06/30/17 [History Confirmed ] Cholecalciferol TAB* [Vitamin D TAB*] 1,000 unit PO QPM 06/30/17 [History Confirmed 09/24/18] Multivitamins/Minerals TAB* [Theragran/minerals TAB*] 1 tab PO QAM 06/30/17 [ History Confirmed 09/24/18] Oxybutynin TAB* [Ditropan TAB*] 5 mg PO BID 06/30/17 [History Confirmed 09/24/18 ] carBAMazepine TAB(*) [Tegretol TAB(*)] 200 mg PO BID 06/30/17 [History Confirmed 09/24/18] glipiZIDE TAB.XL* [Glucotrol Xl*] 5 mg PO BID 06/30/17 [History Confirmed ] Acetaminophen TAB* [Tylenol TAB*] 650 mg PO Q6H PRN #30 tab 03/04/18 [Rx Confirmed 09/24/18] Nystatin TOP POWDER* 1 applic TOPICAL TID PRN 09/20/18 [History Confirmed ] Allergies Allergy/AdvReac Type Severity Reaction Status Date / Time lisinopril Allergy Mild Swelling Verified 09/24/18 18:17 Sulfa (Sulfonamide AdvReac Intermediate Unknown Verified 09/24/18 18:17 Antibiotics) Reaction Details Review of Systems - Measurements Intake and Output: Intake and Output Last 24 Hours 09/22/18 09/23/18 09/24/18 09/25/18 06:59 06:59 06:59 06:59 Intake Total 50 Balance 50 Weight 125 lb Intake: IV Fluids 50 - Review of Systems Constitutional Symptoms: Positive: Fatigue, Fever Negative: Weight Gain, Weight Loss Dermatology: Positive: Skin Lesions - pressure ulcer. Negative: Normal, Rash Eyes: Negative: Change in Vision, Double Vision Thyroid: Negative: Constipation, Palpitations Pulmonary: Negative: Cough, Sputum, Respiratory Distress, Shortness of Breath Cardiology: Negative: Chest Pain, Shortness of Breath, Palpitations Gastroenterology: Positive: Nausea Negative: Vomiting, Difficulty Swallowing, Heartburn, Constipation, Blood in Stools Genital - Urinary: Positive: Dysuria Negative: Normal, Hematuria Musculoskeletal: Negative: Joint Stiffness, Arthritis Endocrinology: Positive: Diabetes Mellitus Hematologic/Lymphatic: Negative: Anemia, Use of Anticoagulant, Use of Antiplatelet Drugs Neurology: Negative: Headache, Migraines, Change in Vision Psychiatry: Negative: Depression, Anxiety Objective Active Medications: Acetaminophen (Tylenol Tab*) 650 mg PO Q6H PRN PRN Reason: pain/fever Anastrozole (Arimidex (Nf)) 1 mg PO 1200 [facility] Atorvastatin Calcium (Lipitor*) 40 mg PO BEDTIME [facility] Baclofen (Lioresal Tab*) 20 mg PO QID [facility] Carbamazepine (Tegretol Tab(*)) 200 mg PO BID [facility] Cholecalciferol (Vitamin D Tab*) 1,000 units PO QPM [facility] Dextrose (D50w Syringe 50 Ml*) 12.5 gm IV PUSH .FOR FS < 60 - SS PRN PRN Reason: FS < 60 Glipizide (Glucotrol Xl*) 5 mg PO BID [facility] Heparin Sodium (Porcine) (Heparin Vial(*)) 5,000 units SUBCUT Q12HR [facility] Sodium Chloride (Ns 0.9% 1000 Ml*) 1,000 mls @ 100 mls/hr IV PER RATE [facility] Ceftriaxone Sodium 1 gm/ (Sodium Chloride) 50 mls @ 200 mls/hr IVPB Q24H [facility] Insulin Human Lispro (Humalog*) 0 units SUBCUT ACHS [facility]; Protocol Labetalol HCl (Trandate Iv*) 10 mg IV PUSH ONCE ONE Stop: 09/24/18 23:35 Losartan Potassium (Cozaar Tab*) 100 mg PO QPM [facility] Metoprolol Succinate (Toprol Xl Tab*) 100 mg PO QAM [facility] Multivitamins/Minerals (Theragran/Minerals Tab*) 1 tab PO QAM [facility] Nystatin (Nystatin Top Powder*) 1 applic TOPICAL TID PRN PRN Reason: RASH Ondansetron HCl (Zofran Inj*) 4 mg IV Q6H PRN PRN Reason: NAUSEA Oxybutynin Chloride (Ditropan Tab*) 5 mg PO BID [facility] Vital Signs - 8 hr 09/24/18 09/24/18 09/24/18 18:13 20:21 20:22 Temperature 96.4 F Pulse Rate 97 79 89 Respiratory 19 Rate Blood Pressure 180/107 194/134 (mmHg) O2 Sat by Pulse 97 95 97 Oximetry 09/24/18 09/24/18 09/24/18 20:50 21:00 21:20 Temperature Pulse Rate 83 85 76 Respiratory 13 25 8 Rate Blood Pressure 219/113 203/100 (mmHg) O2 Sat by Pulse 97 95 93 Oximetry 09/24/18 09/24/18 09/24/18 21:23 21:50 22:00 Temperature Pulse Rate 83 77 Respiratory 22 25 9 Rate Blood Pressure 228/114 (mmHg) O2 Sat by Pulse 92 94 Oximetry 09/24/18 22:20 Temperature Pulse Rate 90 Respiratory 7 Rate Blood Pressure 164/99 (mmHg) O2 Sat by Pulse 91 Oximetry Appearance: Elderly female well developed, lying in ER stretcher not in distress with diaphoresis. Eyes: PERRLA, - - no nystagmus Ears/Nose/Mouth/Throat: - - oral mucosa is dry, no oropharyngeal erythema Neck: Trachea Midline, No Thyroid Enlargement, Masses Respiratory: Symmetrical Chest Expansion and Respiratory Effort, Clear to Auscultation Cardiovascular: NL Sounds; No Murmurs; No JVD, RRR, No Edema Abdominal: NL Sounds; No Tenderness; No Distention, No Hepatosplenomegaly, - - no flank tenderness Extremities: No Edema Skin: - - pressure ulcer at the back. Neurological: Alert and Oriented x 3, NL Sensation, NL Muscle Strength and Tone Result Diagrams: 09/24/18 20:13 09/24/18 20:13 Additional Lab and Data: Laboratory Last Values WBC 11.8 10^3/ul (3.5-10.8) H 09/24/18 20:13 RBC 4.45 10^6/ul (4.00-5.40) 09/24/18 20:13 Hgb 13.9 g/dl (12.0-16.0) 09/24/18 20:13 Hct 41 % (35-47) 09/24/18 20:13 MCV 92 fL (80-97) 09/24/18 20:13 MCH 31 pg (27-31) 09/24/18 20:13 MCHC 34 g/dl (31-36) 09/24/18 20:13 RDW 13 % (10.5-15) 09/24/18 20:13 Plt Count 189 10^3/ul (150-450) 09/24/18 20:13 MPV 9.7 fL (7.4-10.4) 09/24/18 20:13 Neut % (Auto) 74.9 % 09/24/18 20:13 Lymph % (Auto) 10.4 % 09/24/18 20:13 [place] % (Auto) 12.6 % 09/24/18 20:13 Eos % (Auto) 1.9 % 09/24/18 20:13 Baso % (Auto) 0.2 % 09/24/18 20:13 Absolute Neuts (auto) 8.9 10^3/ul (1.5-7.7) H 09/24/18 20:13 Absolute Lymphs (auto) 1.2 10^3/ul (1.0-4.8) 09/24/18 20:13 Absolute Monos (auto) 1.5 10^3/ul (0-0.8) H 09/24/18 20:13 Absolute Eos (auto) 0.2 10^3/ul (0-0.6) 09/24/18 20:13 Absolute Basos (auto) 0 10^3/ul (0-0.2) 09/24/18 20:13 Absolute Nucleated RBC 0 10^3/ul 09/24/18 20:13 Nucleated RBC % 0.1 09/24/18 20:13 Sodium 134 mmol/L (135-145) L 09/24/18 20:13 Potassium 4.7 mmol/L (3.5-5.0) 09/24/18 20:13 Chloride 95 mmol/L (101-111) L 09/24/18 20:13 Carbon Dioxide 26 mmol/L (22-32) 09/24/18 20:13 Anion Gap 13 mmol/L (2-11) H 09/24/18 20:13 BUN 42 mg/dL (6-24) H 09/24/18 20:13 Creatinine 1.17 mg/dL (0.51-0.95) H 09/24/18 20:13 Est GFR ( Amer) 55.8 (>60) 09/24/18 20:13 Est GFR (Non-Af Amer) 46.1 (>60) 09/24/18 20:13 BUN/Creatinine Ratio 35.9 (8-20) H 09/24/18 20:13 Glucose 369 mg/dL (70-100) H 09/24/18 20:13 Lactic Acid 3.1 mmol/L (0.5-2.0) H* 09/24/18 20:13 Calcium 10.7 mg/dL (8.6-10.3) H 09/24/18 20:13 Total Bilirubin 0.40 mg/dL (0.2-1.0) 09/24/18 20:13 AST 36 U/L (13-39) 09/24/18 20:13 ALT 29 U/L (7-52) 09/24/18 20:13 Alkaline Phosphatase 84 U/L (34-104) 09/24/18 20:13 Troponin I 0.03 ng/mL (<0.04) 09/24/18 20:13 Total Protein 8.4 g/dL (6.4-8.9) 09/24/18 20:13 Albumin 4.1 g/dL (3.2-5.2) 09/24/18 20:13 Globulin 4.3 g/dL (2-4) H 09/24/18 20:13 Albumin/Globulin Ratio 1.0 (1-3) 09/24/18 20:13 TSH 2.99 mcIU/mL (0.34-5.60) 09/24/18 20:13 Urine Color Yellow 09/24/18 20:46 Urine Appearance Turbid 09/24/18 20:46 Urine pH 6.0 (5-9) 09/24/18 20:46 Ur Specific [place] 1.015 (1.010-1.030) 09/24/18 20:46 Urine Protein 2+(100 mg/dl) (Negative) A 09/24/18 20:46 Urine Ketones Negative (Negative) 09/24/18 20:46 Urine Blood 2+ (Negative) A 09/24/18 20:46 Urine Nitrate Negative (Negative) 09/24/18 20:46 Urine Bilirubin Negative (Negative) 09/24/18 20:46 Urine Urobilinogen Negative (Negative) 09/24/18 20:46 Ur Leukocyte Esterase 3+ (Negative) A 09/24/18 20:46 Urine WBC (Auto) 3+(>20/hpf) (Absent) A 09/24/18 20:46 Urine RBC (Auto) 3+(>10/hpf) (Absent) A 09/24/18 20:46 Urine Bacteria Absent (Absent) 09/24/18 20:46 Urine Yeast Present (Absent) A 09/24/18 20:46 Urine Glucose 3+(>=500 mg/dl) (Negative) A 09/24/18 20:46 Assess/Plan/Problems-Billing Assessment: - Patient Problems (1) Complicated urinary tract infection Current Visit: Yes Status: Acute Code(s): N39.0 - URINARY TRACT INFECTION, SITE NOT SPECIFIED SNOMED Code(s): 40302939 Comment: Urinary tract infection, recent left ureteral stent placed with neurogenic bladder and self catheterization. Will give rocpehin follow up cultures check kidney ultrasound to rule out hydronephrosis, discussed case with urologist: Dr. Campos. (2) Diabetes Current Visit: No Status: Chronic Code(s): E11.9 - TYPE 2 DIABETES MELLITUS WITHOUT COMPLICATIONS SNOMED Code(s): 56827046 Comment: Continue glipizide sliding scale (3) HTN (hypertension) Current Visit: No Status: Chronic Priority: Medium Code(s): I10 - ESSENTIAL (PRIMARY) HYPERTENSION SNOMED Code(s): 50557637 Comment: Accelerated HTN currently, will give one dose labetalol, and resume home medications. monitor BP, if persistently elevated might require adjustment of home medications (4) Multiple sclerosis Current Visit: No Status: Chronic Priority: Medium Code(s): G35 - MULTIPLE SCLEROSIS SNOMED Code(s): 28042958 Comment: Continue baclofen. (5) Neurogenic bladder Current Visit: No Status: Chronic Priority: Medium Code(s): N31.9 - NEUROMUSCULAR DYSFUNCTION OF BLADDER, UNSPECIFIED SNOMED Code(s): 601635459 Comment: currently w/ wise cather in [facility]. (6) DVT prophylaxis Current Visit: No Status: Acute Priority: Medium Code(s): JGA3212 - SNOMED Code(s): 568321804 Comment: Heparin subQ (7) Seizure disorder Current Visit: No Status: Chronic Priority: Medium Code(s): G40.909 - EPILEPSY, UNSP, NOT INTRACTABLE, WITHOUT STATUS EPILEPTICUS SNOMED Code(s): 202971925 Comment: Continue Carbamazepine. Status and Disposition: Assessment and plan discussed with patient and at bedside Additional management as the hospital course progresses, per discretion of daytime rounding hospitalist.
[2018-09-25 00:24] LABS: BUN/Creatinine Ratio 38.2 (8-20); C Reactive Protein 133.76 mg/L (<8.01); Calcium 10.1 mg/dL (8.6-10.3); EGFR African American 65.4 (>60); EGFR Non-African American 54.1 (>60); Potassium 4.4 mmol/L (3.5-5.0)
[2018-09-25] MEDS: NS 0.9% 1000 ML** 1,000 ML IV SCH ×3 (01:52→21:16)
[2018-09-25] MEDS: Losartan TAB* 25 MG PO SCH ×2 (01:55→18:03)
[2018-09-25] MEDS: carBAMazepine TAB(*) 200 MG PO SCH ×2 (08:36→21:11)
[2018-09-25] MEDS: Baclofen TAB* 20 MG PO SCH ×4 (08:36→21:11)
[2018-09-25] MEDS: Insulin LISPRO* 1 UNITS UNIT SUBCUT SCH ×4 (08:36→21:12)
[2018-09-25] MEDS: Multivitamins/Minerals TAB PO SCH (08:37)
[2018-09-25] MEDS: Oxybutynin TAB* 5 MG PO SCH ×2 (08:37→21:11)
[2018-09-25] MEDS: Heparin VIAL(*) 5000 UNITS/ML VIAL (FIVE THOUSAND) SUBCUT SCH ×2 (08:37→21:14)
[2018-09-25] MEDS: Metoprolol Succinate XL TAB* 100 MG PO SCH (08:37)
[2018-09-25] MEDS: glipiZIDE TAB.XL* 5 MG PO SCH ×2 (08:37→21:10)
--- NOTE | 2018-09-25 10:43 | PN ---
Subjective Date of Service: 09/25/18 Interval History: Lucretia is feeling better. Her is here and agrees she is much better but not back to baseline. He says it is typical for her not to know the date, but some of her conversations are still unusual--for example, when we were discussing the plan for antibiotics, she asks if she can eat ice cream. Overall though, he feels she is getting better. She has some pain in her left flank still. Objective Active Medications: Acetaminophen (Tylenol Tab*) 650 mg PO Q6H PRN PRN Reason: pain/fever Anastrozole (Arimidex (Nf)) 1 mg PO 1200 [facility] Atorvastatin Calcium (Lipitor*) 40 mg PO BEDTIME SIMÓN Baclofen (Lioresal Tab*) 20 mg PO QID [facility] Last Admin: 09/25/18 08:36 Dose: 20 mg Carbamazepine (Tegretol Tab(*)) 200 mg PO BID [facility] Last Admin: 09/25/18 08:36 Dose: 200 mg Cholecalciferol (Vitamin D Tab*) 1,000 units PO QPM [facility] Dextrose (D50w Syringe 50 Ml*) 12.5 gm IV PUSH .FOR FS < 60 - SS PRN PRN Reason: FS < 60 Glipizide (Glucotrol Xl*) 5 mg PO BID [facility] Last Admin: 09/25/18 08:37 Dose: 5 mg Heparin Sodium (Porcine) (Heparin Vial(*)) 5,000 units SUBCUT Q12HR [facility] Last Admin: 09/25/18 08:37 Dose: 5,000 units Sodium Chloride (Ns 0.9% 1000 Ml*) 1,000 mls @ 100 mls/hr IV PER RATE [facility] Last Admin: 09/25/18 01:52 Dose: 100 mls/hr Ceftriaxone Sodium 1 gm/ (Sodium Chloride) 50 mls @ 200 mls/hr IVPB 2100 [facility] Insulin Human Lispro (Humalog*) 0 units SUBCUT ACHS [facility]; Protocol Last Admin: 09/25/18 08:36 Dose: 5 units Losartan Potassium (Cozaar Tab*) 100 mg PO QPM [facility] Last Admin: 09/25/18 01:55 Dose: Not Given Metoprolol Succinate (Toprol Xl Tab*) 100 mg PO QAM [facility] Last Admin: 09/25/18 08:37 Dose: 100 mg Multivitamins/Minerals (Theragran/Minerals Tab*) 1 tab PO QAM [facility] Last Admin: 09/25/18 08:37 Dose: 1 tab Nystatin (Nystatin Top Powder*) 1 applic TOPICAL TID PRN PRN Reason: RASH Ondansetron HCl (Zofran Inj*) 4 mg IV Q6H PRN PRN Reason: NAUSEA Oxybutynin Chloride (Ditropan Tab*) 5 mg PO BID [facility] Last Admin: 09/25/18 08:37 Dose: 5 mg Vital Signs - 8 hr 09/25/18 09/25/18 04:07 08:00 Temperature 97.9 F 97.5 F Pulse Rate 85 76 Respiratory 18 16 Rate Blood Pressure 112/63 118/62 (mmHg) O2 Sat by Pulse 100 95 Oximetry Oxygen Devices in Use Now: Nasal Cannula Appearance: alert, oriented to person and place, not to time. thinks it is 1998 or 2000. Eyes: No Scleral Icterus Ears/Nose/Mouth/Throat: NL Teeth, Lips, Gums Neck: NL Appearance and Movements; NL JVP Respiratory: Symmetrical Chest Expansion and Respiratory Effort, Clear to Auscultation Cardiovascular: NL Sounds; No Murmurs; No JVD, RRR Abdominal: - - rotund, nontender to deep palpation. + CVA tenderness left flank. Lymphatic: No Cervical Adenopathy Extremities: No Edema Skin: No Rash or Ulcers Neurological: - - hip strength 0/5. able to move ankles and toes. upper extremity strenght 5/5. Result Diagrams: 09/24/18 20:13 09/24/18 23:49 Additional Lab and Data: Laboratory Last Values WBC 11.8 10^3/ul (3.5-10.8) H 09/24/18 20:13 RBC 4.45 10^6/ul (4.00-5.40) 09/24/18 20:13 Hgb 13.9 g/dl (12.0-16.0) 09/24/18 20:13 Hct 41 % (35-47) 09/24/18 20:13 MCV 92 fL (80-97) 09/24/18 20:13 MCH 31 pg (27-31) 09/24/18 20:13 MCHC 34 g/dl (31-36) 09/24/18 20:13 RDW 13 % (10.5-15) 09/24/18 20:13 Plt Count 189 10^3/ul (150-450) 09/24/18 20:13 MPV 9.7 fL (7.4-10.4) 09/24/18 20:13 Neut % (Auto) 74.9 % 09/24/18 20:13 Lymph % (Auto) 10.4 % 09/24/18 20:13 [place] % (Auto) 12.6 % 09/24/18 20:13 Eos % (Auto) 1.9 % 09/24/18 20:13 Baso % (Auto) 0.2 % 09/24/18 20:13 Absolute Neuts (auto) 8.9 10^3/ul (1.5-7.7) H 09/24/18 20:13 Absolute Lymphs (auto) 1.2 10^3/ul (1.0-4.8) 09/24/18 20:13 Absolute Monos (auto) 1.5 10^3/ul (0-0.8) H 09/24/18 20:13 Absolute Eos (auto) 0.2 10^3/ul (0-0.6) 09/24/18 20:13 Absolute Basos (auto) 0 10^3/ul (0-0.2) 09/24/18 20:13 Absolute Nucleated RBC 0 10^3/ul 09/24/18 20:13 Nucleated RBC % 0.1 09/24/18 20:13 Sodium 134 mmol/L (135-145) L 09/24/18 20:13 Potassium 4.7 mmol/L (3.5-5.0) 09/24/18 20:13 Chloride 95 mmol/L (101-111) L 09/24/18 20:13 Carbon Dioxide 26 mmol/L (22-32) 09/24/18 20:13 Anion Gap 13 mmol/L (2-11) H 09/24/18 20:13 BUN 42 mg/dL (6-24) H 09/24/18 20:13 Creatinine 1.17 mg/dL (0.51-0.95) H 09/24/18 20:13 Est GFR ( Amer) 55.8 (>60) 09/24/18 20:13 Est GFR (Non-Af Amer) 46.1 (>60) 09/24/18 20:13 BUN/Creatinine Ratio 35.9 (8-20) H 09/24/18 20:13 Glucose 369 mg/dL (70-100) H 09/24/18 20:13 Lactic Acid 3.1 mmol/L (0.5-2.0) H* 09/24/18 20:13 Calcium 10.7 mg/dL (8.6-10.3) H 09/24/18 20:13 Total Bilirubin 0.40 mg/dL (0.2-1.0) 09/24/18 20:13 AST 36 U/L (13-39) 09/24/18 20:13 ALT 29 U/L (7-52) 09/24/18 20:13 Alkaline Phosphatase 84 U/L (34-104) 09/24/18 20:13 Troponin I 0.03 ng/mL (<0.04) 09/24/18 20:13 Total Protein 8.4 g/dL (6.4-8.9) 09/24/18 20:13 Albumin 4.1 g/dL (3.2-5.2) 09/24/18 20:13 Globulin 4.3 g/dL (2-4) H 09/24/18 20:13 Albumin/Globulin Ratio 1.0 (1-3) 09/24/18 20:13 TSH 2.99 mcIU/mL (0.34-5.60) 09/24/18 20:13 Urine Color Yellow 09/24/18 20:46 Urine Appearance Turbid 09/24/18 20:46 Urine pH 6.0 (5-9) 09/24/18 20:46 Ur Specific [place] 1.015 (1.010-1.030) 09/24/18 20:46 Urine Protein 2+(100 mg/dl) (Negative) A 09/24/18 20:46 Urine Ketones Negative (Negative) 09/24/18 20:46 Urine Blood 2+ (Negative) A 09/24/18 20:46 Urine Nitrate Negative (Negative) 09/24/18 20:46 Urine Bilirubin Negative (Negative) 09/24/18 20:46 Urine Urobilinogen Negative (Negative) 09/24/18 20:46 Ur Leukocyte Esterase 3+ (Negative) A 09/24/18 20:46 Urine WBC (Auto) 3+(>20/hpf) (Absent) A 09/24/18 20:46 Urine RBC (Auto) 3+(>10/hpf) (Absent) A 09/24/18 20:46 Urine Bacteria Absent (Absent) 09/24/18 20:46 Urine Yeast Present (Absent) A 09/24/18 20:46 Urine Glucose 3+(>=500 mg/dl) (Negative) A 09/24/18 20:46 Assess/Plan/Problems-Billing Assessment: This is a 68 year old female with history of MS and neurogenic bladder who underwent ureteral stenting on Wednesday and then presented to the ED on 09/24 with fevers, flank pain, and delirium - Patient Problems (1) Complicated urinary tract infection Current Visit: Yes Status: Acute Code(s): N39.0 - URINARY TRACT INFECTION, SITE NOT SPECIFIED SNOMED Code(s): 03769984 Comment: with recent instrumentation and stent continue ceftriaxone (day 2) and await cultures case discussed with Dr. Blanco; he recommends 10 days of abx until her planned lithotripsy next week (2) Acute delirium Current Visit: No Status: Acute Code(s): R41.0 - DISORIENTATION, UNSPECIFIED SNOMED Code(s): 1902663 Comment: Likely infectious Improving but not back to baseline (3) Neurogenic bladder Current Visit: No Status: Acute Code(s): N31.9 - NEUROMUSCULAR DYSFUNCTION OF BLADDER, UNSPECIFIED SNOMED Code(s): 116045463 Comment: continue wise catheter for now; at home straight caths 6-8x/day (4) Multiple sclerosis Current Visit: No Status: Chronic Priority: Medium Code(s): G35 - MULTIPLE SCLEROSIS SNOMED Code(s): 45501632 Comment: Wheelchair bound Continue baclofen. (5) Seizure disorder Current Visit: No Status: Chronic Priority: Medium Code(s): G40.909 - EPILEPSY, UNSP, NOT INTRACTABLE, WITHOUT STATUS EPILEPTICUS SNOMED Code(s): 790379727 Comment: Continue Carbamazepine. avoid fluoroquinolones for uti Status and Disposition: Assessment and plan discussed with patient and at bedside Additional management as the hospital course progresses, per discretion of daytime rounding hospitalist.
[2018-09-25] MEDS: PTO: Anastrozole (NF) 1 MG TAB PO SCH (12:36)
--- NOTE | 2018-09-25 12:53 | CONS ---
CONSULTATION NOTE: DATE OF CONSULT: 09/25/18 LOCATION: The patient is in room #407. HISTORY OF PRESENT ILLNESS: I was asked by the hospitalist service to see this 68- year-old white female with suspected urosepsis. Mrs. Em has a neurogenic bladder secondary to multiple sclerosis. She performs intermittent self-catheterization about 6 times per day. She was admitted back in February with symptoms of urosepsis and on her workup at that time, was noted to have nonobstructing left renal calculus and no hydronephrosis. She was treated successfully with antibiotics and she did well. She was admitted to the hospital on 09/21/18, with an 8 mm calculus in the left renal pelvis. The stone has been acting as a ball valve causing intermittent episodes of left flank pain. Her preoperative urine culture showed less than 10 ,000 colonies of strep. On her admission, on 09/21/18, she had a cystoscopy and insertion of a left ureteral stent by Dr Eaton. The procedure was uncomplicated and the plan was to bring her back in another week for shock wave lithotripsy of the stone and stent removal. The patient presented to the emergency room late last night with fever, chills, and disorientation. Her white count was 11,800, and her lactic acid was elevated at 3.1. Her creatinine was 1.2. Her urinalysis was positive for infection. The patient was admitted. She had blood and urine cultures done. She was started on IV fluids and placed on ceftriaxone. A consultation was requested. On my evaluation this morning, she looks much better. She is afebrile and seems to be fully recovered from her disorientation. On examination, she has mild left CVA tenderness. The patient is scheduled to have a renal ultrasound this morning to confirm that there is no associated hydronephrosis as part of the presence of the stent. The recommendation is to continue on the intravenous antibiotics until the urine culture is out. She can be discharged home on antibiotics afterwards. We will decide whether to proceed with the planned shock wave lithotripsy and stent removal as scheduled next week. [id number]/CPS #: [id number] TORI
[2018-09-25] MEDS: Cholecalciferol TAB* 1000 UNITS PO SCH (18:03)
[2018-09-25] MEDS: Polyethylene Glycol 3350* 17 GM PACKET PO PRN (21:10)
[2018-09-25] MEDS: cefTRIAXone(*) 1 GM in NS 0.9% 50 ML* 50 ML IVPB SCH (21:10)
[2018-09-25] MEDS: Atorvastatin* 40 MG TAB PO SCH (21:11)
[2018-09-26 05:59] LABS: ABS Basophils 0 10^3/ul (0-0.2); ABS Eosinophils 0.2 10^3/ul (0-0.6); ABS Lymphocytes 1.9 10^3/ul (1.0-4.8); ABS Monocytes 1.1 10^3/ul (0-0.8); ABS Neutrophils 4.9 10^3/ul (1.5-7.7); ABS Nucleated RBC 0 10^3/ul; Eosinophil % 1.9 %; Hematocrit 35 % (35-47); Hemoglobin 12.1 g/dl (12.0-16.0); Lymphocyte % 23.9 %; Mean Corpuscular HGB Conc 35 g/dl (31-36); Mean Corpuscular Hemoglobin 32 pg (27-31); Mean Corpuscular Volume 92 fL (80-97); Mean Platelet Volume 9.1 fL (7.4-10.4); Nucleated Red Blood Cells % 0.1; Platelet Count 151 10^3/ul (150-450); Red Blood Count 3.79 10^6/ul (4.00-5.40); Red Cell Distribution Width 13 % (10.5-15); White Blood Count 8.1 10^3/ul (3.5-10.8)
[2018-09-26 06:24] LABS: Calcium 8.6 mg/dL (8.6-10.3); Potassium 4.2 mmol/L (3.5-5.0)
[2018-09-26 06:30] LABS: BUN/Creatinine Ratio 26.7 (8-20); EGFR African American 93.3 (>60); EGFR Non-African American 77.1 (>60)
[2018-09-26] MEDS: Insulin LISPRO* 1 UNITS UNIT SUBCUT SCH ×4 (08:46→21:33)
[2018-09-26] MEDS: Heparin VIAL(*) 5000 UNITS/ML VIAL (FIVE THOUSAND) SUBCUT SCH ×2 (08:47→21:34)
[2018-09-26] MEDS: Metoprolol Succinate XL TAB* 100 MG PO SCH (08:47)
[2018-09-26] MEDS: carBAMazepine TAB(*) 200 MG PO SCH ×2 (08:48→21:30)
[2018-09-26] MEDS: Multivitamins/Minerals TAB PO SCH (08:49)
[2018-09-26] MEDS: Baclofen TAB* 20 MG PO SCH ×4 (08:49→21:30)
[2018-09-26] MEDS: glipiZIDE TAB.XL* 5 MG PO SCH ×2 (08:50→21:31)
[2018-09-26] MEDS: Oxybutynin TAB* 5 MG PO SCH ×2 (08:50→21:30)
[2018-09-26] MEDS ORDERED: Insulin GLARGINE(*) 1 UNITS UNIT SUBCUT SCH (09:00)
--- NOTE | 2018-09-26 12:19 | PN ---
Subjective Date of Service: 09/26/18 Interval History: Pt feels better, as per "still foggy", but apparently at baseline pt is not oriented to date. Pt c/l lower back pain x 8 weeks Objective Active Medications: Acetaminophen (Tylenol Tab*) 650 mg PO Q6H PRN PRN Reason: pain/fever Anastrozole (Arimidex (Nf)) 1 mg PO 1200 [facility] Last Admin: 09/25/18 12:36 Dose: Not Given Atorvastatin Calcium (Lipitor*) 40 mg PO BEDTIME [facility] Last Admin: 09/25/18 21:11 Dose: 40 mg Baclofen (Lioresal Tab*) 20 mg PO QID [facility] Last Admin: 09/26/18 08:49 Dose: 20 mg Carbamazepine (Tegretol Tab(*)) 200 mg PO BID [facility] Last Admin: 09/26/18 08:48 Dose: 200 mg Cholecalciferol (Vitamin D Tab*) 1,000 units PO QPM [facility] Last Admin: 09/25/18 18:03 Dose: 1,000 units Dextrose (D50w Syringe 50 Ml*) 12.5 gm IV PUSH .FOR FS < 60 - SS PRN PRN Reason: FS < 60 Glipizide (Glucotrol Xl*) 5 mg PO BID [facility] Last Admin: 09/26/18 08:50 Dose: 5 mg Heparin Sodium (Porcine) (Heparin Vial(*)) 5,000 units SUBCUT Q12HR [facility] Last Admin: 09/26/18 08:47 Dose: 5,000 units Ceftriaxone Sodium 1 gm/ (Sodium Chloride) 50 mls @ 200 mls/hr IVPB 2100 [facility] Last Admin: 09/25/18 21:10 Dose: 200 mls/hr Insulin Glargine (Lantus(*)) 10 units SUBCUT Q24H [facility] Last Admin: 09/26/18 09:29 Dose: 10 units Insulin Human Lispro (Humalog*) 0 units SUBCUT ACHS [facility]; Protocol Last Admin: 09/26/18 08:46 Dose: 3 units Losartan Potassium (Cozaar Tab*) 100 mg PO QPM [facility] Last Admin: 09/25/18 18:03 Dose: 100 mg Metoprolol Succinate (Toprol Xl Tab*) 100 mg PO QAM [facility] Last Admin: 09/26/18 08:47 Dose: 100 mg Multivitamins/Minerals (Theragran/Minerals Tab*) 1 tab PO QAM [facility] Last Admin: 09/26/18 08:49 Dose: 1 tab Nystatin (Nystatin Top Powder*) 1 applic TOPICAL TID PRN PRN Reason: RASH Ondansetron HCl (Zofran Inj*) 4 mg IV Q6H PRN PRN Reason: NAUSEA Oxybutynin Chloride (Ditropan Tab*) 5 mg PO BID [facility] Last Admin: 09/26/18 08:50 Dose: 5 mg Polyethylene Glycol/Electrolytes (Miralax*) 17 gm PO 0800,2100 PRN PRN Reason: CONSTIPATION Last Admin: 09/25/18 21:10 Dose: 17 gm Vital Signs - 8 hr 09/26/18 09/26/18 07:43 08:00 Temperature 97.9 F Pulse Rate 92 Respiratory 18 18 Rate Blood Pressure 162/84 (mmHg) O2 Sat by Pulse 92 Oximetry Oxygen Devices in Use Now: None Appearance: 68 yo F in NAD, AAOx2, not orineted to time, pleasant , cooperative , following commands Eyes: No Scleral Icterus, PERRLA Ears/Nose/Mouth/Throat: NL Teeth, Lips, Gums, Mucous Membranes Moist Neck: NL Appearance and Movements; NL JVP, Trachea Midline Respiratory: Symmetrical Chest Expansion and Respiratory Effort, Clear to Auscultation Cardiovascular: NL Sounds; No Murmurs; No JVD Abdominal: NL Sounds; No Tenderness; No Distention, No Hepatosplenomegaly, - - back: not tender to palpation Extremities: No Clubbing, Cyanosis Skin: No Rash or Ulcers, No Nodules or Sclerosis Neurological: - - unable to move legs-chronic Result Diagrams: 09/26/18 05:42 09/26/18 05:42 Additional Lab and Data: Laboratory Last Values WBC 11.8 10^3/ul (3.5-10.8) H 09/24/18 20:13 RBC 4.45 10^6/ul (4.00-5.40) 09/24/18 20:13 Hgb 13.9 g/dl (12.0-16.0) 09/24/18 20:13 Hct 41 % (35-47) 09/24/18 20:13 MCV 92 fL (80-97) 09/24/18 20:13 MCH 31 pg (27-31) 09/24/18 20:13 MCHC 34 g/dl (31-36) 09/24/18 20:13 RDW 13 % (10.5-15) 09/24/18 20:13 Plt Count 189 10^3/ul (150-450) 09/24/18 20:13 MPV 9.7 fL (7.4-10.4) 09/24/18 20:13 Neut % (Auto) 74.9 % 09/24/18 20:13 Lymph % (Auto) 10.4 % 09/24/18 20:13 [place] % (Auto) 12.6 % 09/24/18 20:13 Eos % (Auto) 1.9 % 09/24/18 20:13 Baso % (Auto) 0.2 % 09/24/18 20:13 Absolute Neuts (auto) 8.9 10^3/ul (1.5-7.7) H 09/24/18 20:13 Absolute Lymphs (auto) 1.2 10^3/ul (1.0-4.8) 09/24/18 20:13 Absolute Monos (auto) 1.5 10^3/ul (0-0.8) H 09/24/18 20:13 Absolute Eos (auto) 0.2 10^3/ul (0-0.6) 09/24/18 20:13 Absolute Basos (auto) 0 10^3/ul (0-0.2) 09/24/18 20:13 Absolute Nucleated RBC 0 10^3/ul 09/24/18 20:13 Nucleated RBC % 0.1 09/24/18 20:13 Sodium 134 mmol/L (135-145) L 09/24/18 20:13 Potassium 4.7 mmol/L (3.5-5.0) 09/24/18 20:13 Chloride 95 mmol/L (101-111) L 09/24/18 20:13 Carbon Dioxide 26 mmol/L (22-32) 09/24/18 20:13 Anion Gap 13 mmol/L (2-11) H 09/24/18 20:13 BUN 42 mg/dL (6-24) H 09/24/18 20:13 Creatinine 1.17 mg/dL (0.51-0.95) H 09/24/18 20:13 Est GFR ( Amer) 55.8 (>60) 09/24/18 20:13 Est GFR (Non-Af Amer) 46.1 (>60) 09/24/18 20:13 BUN/Creatinine Ratio 35.9 (8-20) H 09/24/18 20:13 Glucose 369 mg/dL (70-100) H 09/24/18 20:13 Lactic Acid 3.1 mmol/L (0.5-2.0) H* 09/24/18 20:13 Calcium 10.7 mg/dL (8.6-10.3) H 09/24/18 20:13 Total Bilirubin 0.40 mg/dL (0.2-1.0) 09/24/18 20:13 AST 36 U/L (13-39) 09/24/18 20:13 ALT 29 U/L (7-52) 09/24/18 20:13 Alkaline Phosphatase 84 U/L (34-104) 09/24/18 20:13 Troponin I 0.03 ng/mL (<0.04) 09/24/18 20:13 Total Protein 8.4 g/dL (6.4-8.9) 09/24/18 20:13 Albumin 4.1 g/dL (3.2-5.2) 09/24/18 20:13 Globulin 4.3 g/dL (2-4) H 09/24/18 20:13 Albumin/Globulin Ratio 1.0 (1-3) 09/24/18 20:13 TSH 2.99 mcIU/mL (0.34-5.60) 09/24/18 20:13 Urine Color Yellow 09/24/18 20:46 Urine Appearance Turbid 09/24/18 20:46 Urine pH 6.0 (5-9) 09/24/18 20:46 Ur Specific [place] 1.015 (1.010-1.030) 09/24/18 20:46 Urine Protein 2+(100 mg/dl) (Negative) A 09/24/18 20:46 Urine Ketones Negative (Negative) 09/24/18 20:46 Urine Blood 2+ (Negative) A 09/24/18 20:46 Urine Nitrate Negative (Negative) 09/24/18 20:46 Urine Bilirubin Negative (Negative) 09/24/18 20:46 Urine Urobilinogen Negative (Negative) 09/24/18 20:46 Ur Leukocyte Esterase 3+ (Negative) A 09/24/18 20:46 Urine WBC (Auto) 3+(>20/hpf) (Absent) A 09/24/18 20:46 Urine RBC (Auto) 3+(>10/hpf) (Absent) A 09/24/18 20:46 Urine Bacteria Absent (Absent) 09/24/18 20:46 Urine Yeast Present (Absent) A 09/24/18 20:46 Urine Glucose 3+(>=500 mg/dl) (Negative) A 09/24/18 20:46 Microbiology and Other Data: Microbiology 09/24/18 23:49 Aerobic Blood Culture - Preliminary Blood Venous No Growth Day 1 Anaerobic Blood Culture - Preliminary No Growth Day 1 09/24/18 23:49 Aerobic Blood Culture - Preliminary Blood Venous No Growth Day 1 Anaerobic Blood Culture - Preliminary No Growth Day 1 09/24/18 20:46 Urine Culture - Final Urine [place] Assess/Plan/Problems-Billing Assessment: This is a 68 year old female with history of MS and neurogenic bladder who underwent ureteral stenting on Wednesday and then presented to the ED on 09/24 with fevers, flank pain, and delirium - Patient Problems (1) Complicated urinary tract infection Current Visit: Yes Status: Acute Comment: with recent instrumentation and stent continue ceftriaxone, cx neg apart for kim repaet KUB ordered by Dr. Eaton pending case discussed with Dr. Blanco; he recommends 10 days of abx until her planned lithotripsy next week 10/10/18 (2) Acute delirium Comment: Likely infectious Improving (3) Multiple sclerosis Comment: Wheelchair bound Continue baclofen. (4) Seizure disorder Comment: Continue Carbamazepine. avoid fluoroquinolones for uti (5) Neurogenic bladder Comment: continue wise catheter for now; at home straight caths 6-8x/day (6) Lower back pain Comment: will get CT to eval (7) DM2 (diabetes mellitus, type 2) Comment: Uncontrolled-likley worsened by infection, HB A1C 9.3. cont glipizide. Pt had GI intolerance to metformin in the past. will cont ISS and start low dose Lantus for now. (8) DVT prophylaxis Comment: HSQ Status and Disposition: inpatient,likely d/c tomorrow
[2018-09-26] MEDS: PTO: Anastrozole (NF) 1 MG TAB PO SCH (12:52)
[2018-09-26] MEDS: Losartan TAB* 25 MG PO SCH (17:57)
[2018-09-26] MEDS: Cholecalciferol TAB* 1000 UNITS PO SCH (17:57)
[2018-09-26] MEDS ORDERED: hydrALAZINE IV* 20 MG/ML VIAL ONE (19:39)
[2018-09-26] MEDS ORDERED: hydrALAZINE IV* 20 MG/ML VIAL IV SLOW PU PRN (19:59)
[2018-09-26] MEDS: Atorvastatin* 40 MG TAB PO SCH (21:30)
[2018-09-26] MEDS: cefTRIAXone(*) 1 GM in NS 0.9% 50 ML* 50 ML IVPB SCH (21:42)
[2018-09-26] MEDS: Polyethylene Glycol 3350* 17 GM PACKET PO PRN (21:43)
[2018-09-26] MEDS: Acetaminophen TAB* 325 MG PO PRN (23:31)
[2018-09-27] MEDS ORDERED: Ibuprofen TAB* 600 MG PO ONE (01:45)
[2018-09-27] MEDS ORDERED: Ibuprofen TAB* 600 MG ONE (01:50)
[2018-09-27 06:01] LABS: Calcium 9.1 mg/dL (8.6-10.3)
[2018-09-27 06:07] LABS: ABS Basophils 0 10^3/ul (0-0.2); ABS Eosinophils 0.2 10^3/ul (0-0.6); ABS Lymphocytes 2.1 10^3/ul (1.0-4.8); ABS Monocytes 1.2 10^3/ul (0-0.8); ABS Neutrophils 6.1 10^3/ul (1.5-7.7); ABS Nucleated RBC 0 10^3/ul; BUN/Creatinine Ratio 19.2 (8-20); EGFR African American 54.2 (>60); EGFR Non-African American 44.8 (>60); Eosinophil % 1.6 %; Hematocrit 36 % (35-47); Hemoglobin 11.9 g/dl (12.0-16.0); Lymphocyte % 21.8 %; Mean Corpuscular HGB Conc 33 g/dl (31-36); Mean Corpuscular Hemoglobin 31 pg (27-31); Mean Corpuscular Volume 95 fL (80-97); Nucleated Red Blood Cells % 0.1; Platelet Count 174 10^3/ul (150-450); Red Blood Count 3.81 10^6/ul (4.00-5.40); Red Cell Distribution Width 13 % (10.5-15); White Blood Count 9.6 10^3/ul (3.5-10.8)
[2018-09-27] MEDS: Multivitamins/Minerals TAB PO SCH (08:50)
[2018-09-27] MEDS: glipiZIDE TAB.XL* 5 MG PO SCH ×2 (08:50→21:45)
[2018-09-27] MEDS: carBAMazepine TAB(*) 200 MG PO SCH ×2 (08:50→21:46)
[2018-09-27] MEDS: Metoprolol Succinate XL TAB* 100 MG PO SCH (08:50)
[2018-09-27] MEDS: Oxybutynin TAB* 5 MG PO SCH ×2 (08:51→21:44)
[2018-09-27] MEDS: Baclofen TAB* 20 MG PO SCH ×4 (08:51→21:45)
[2018-09-27] MEDS: Polyethylene Glycol 3350* 17 GM PACKET PO PRN (08:52)
[2018-09-27] MEDS: Heparin VIAL(*) 5000 UNITS/ML VIAL (FIVE THOUSAND) SUBCUT SCH ×2 (08:56→21:48)
[2018-09-27] MEDS: Insulin GLARGINE(*) 1 UNITS UNIT SUBCUT SCH (08:56)
[2018-09-27] MEDS: Insulin LISPRO* 1 UNITS UNIT SUBCUT SCH ×4 (08:56→21:47)
[2018-09-27] MEDS ORDERED: NS 0.9% 1000 ML** 1,000 ML IV SCH (09:00)
[2018-09-27 09:24] LABS: Influenza A Molecular NEGATIVE (Negative); Influenza B Molecular NEGATIVE (Negative)
[2018-09-27] MEDS: Fluconazole 200 MG IVPREMIX(*) 200 MG/100 ML BAG IVPB SCH (10:07)
--- NOTE | 2018-09-27 10:07 | PN ---
Subjective Date of Service: 09/27/18 Interval History: Pt had a fever of 102 last night. Urine became cloudy in [place]. C/.o lower back pain in the past 8 weeks Objective Active Medications: Acetaminophen (Tylenol Tab*) 650 mg PO Q6H PRN PRN Reason: pain/fever Last Admin: 09/26/18 23:31 Dose: 650 mg Anastrozole (Arimidex (Nf)) 1 mg PO 1200 [facility] Last Admin: 09/26/18 12:52 Dose: 1 mg Atorvastatin Calcium (Lipitor*) 40 mg PO BEDTIME [facility] Last Admin: 09/26/18 21:30 Dose: 40 mg Baclofen (Lioresal Tab*) 20 mg PO QID [facility] Last Admin: 09/27/18 08:51 Dose: 20 mg Carbamazepine (Tegretol Tab(*)) 200 mg PO BID [facility] Last Admin: 09/27/18 08:50 Dose: 200 mg Cholecalciferol (Vitamin D Tab*) 1,000 units PO QPM [facility] Last Admin: 09/26/18 17:57 Dose: 1,000 units Dextrose (D50w Syringe 50 Ml*) 12.5 gm IV PUSH .FOR FS < 60 - SS PRN PRN Reason: FS < 60 Glipizide (Glucotrol Xl*) 5 mg PO BID [facility] Last Admin: 09/27/18 08:50 Dose: 5 mg Heparin Sodium (Porcine) (Heparin Vial(*)) 5,000 units SUBCUT Q12HR [facility] Last Admin: 09/27/18 08:56 Dose: 5,000 units Hydralazine HCl (Apresoline Iv*) 5 mg IV SLOW PU Q6H PRN PRN Reason: SBP >160 Last Admin: 09/26/18 19:40 Dose: 5 mg Ceftriaxone Sodium 1 gm/ (Sodium Chloride) 50 mls @ 200 mls/hr IVPB 2100 [facility] Last Admin: 09/26/18 21:42 Dose: 200 mls/hr Fluconazole/Sodium Chloride (Diflucan 200 Mg Ivpremix(*)) 200 mg in 100 mls @ 100 mls/hr IVPB Q24H [facility] Sodium Chloride (Ns 0.9% 1000 Ml*) 1,000 mls @ 100 mls/hr IV PER RATE [facility] Stop: 09/27/18 18:59 Insulin Glargine (Lantus(*)) 20 units SUBCUT Q24H [facility] Last Admin: 09/27/18 08:56 Dose: 20 units Insulin Human Lispro (Humalog*) 0 units SUBCUT ACHS [facility]; Protocol Last Admin: 09/27/18 08:56 Dose: 4 units Losartan Potassium (Cozaar Tab*) 100 mg PO QPM [facility] Last Admin: 09/26/18 17:57 Dose: 100 mg Metoprolol Succinate (Toprol Xl Tab*) 100 mg PO QAM [facility] Last Admin: 09/27/18 08:50 Dose: 100 mg Multivitamins/Minerals (Theragran/Minerals Tab*) 1 tab PO QAM [facility] Last Admin: 09/27/18 08:50 Dose: 1 tab Nystatin (Nystatin Top Powder*) 1 applic TOPICAL TID PRN PRN Reason: RASH Last Admin: 09/26/18 22:36 Dose: 1 applic Oxybutynin Chloride (Ditropan Tab*) 5 mg PO BID [facility] Last Admin: 09/27/18 08:51 Dose: 5 mg Polyethylene Glycol/Electrolytes (Miralax*) 17 gm PO 0800,2100 PRN PRN Reason: CONSTIPATION Last Admin: 09/27/18 08:52 Dose: 17 gm Vital Signs - 8 hr 09/27/18 09/27/18 09/27/18 03:19 07:30 08:00 Temperature 100.4 F 98.0 F Pulse Rate 101 98 Respiratory 18 16 20 Rate Blood Pressure 113/70 101/62 (mmHg) O2 Sat by Pulse 94 93 Oximetry Oxygen Devices in Use Now: None Appearance: 68 yo F in nAD, AAOx2, poor historian Eyes: No Scleral Icterus, PERRLA Ears/Nose/Mouth/Throat: NL Teeth, Lips, Gums, Mucous Membranes Moist Neck: NL Appearance and Movements; NL JVP, Trachea Midline Respiratory: Symmetrical Chest Expansion and Respiratory Effort, Clear to Auscultation Cardiovascular: NL Sounds; No Murmurs; No JVD Abdominal: NL Sounds; No Tenderness; No Distention, - - no CVA tenderness b/l Lymphatic: No Cervical Adenopathy Extremities: No Edema, No Clubbing, Cyanosis Skin: No Rash or Ulcers, No Nodules or Sclerosis Neurological: - - unable to move LE's due to MS, speech clear Result Diagrams: 09/27/18 05:12 09/27/18 05:12 Additional Lab and Data: Laboratory Last Values WBC 11.8 10^3/ul (3.5-10.8) H 09/24/18 20:13 RBC 4.45 10^6/ul (4.00-5.40) 09/24/18 20:13 Hgb 13.9 g/dl (12.0-16.0) 09/24/18 20:13 Hct 41 % (35-47) 09/24/18 20:13 MCV 92 fL (80-97) 09/24/18 20:13 MCH 31 pg (27-31) 09/24/18 20:13 MCHC 34 g/dl (31-36) 09/24/18 20:13 RDW 13 % (10.5-15) 09/24/18 20:13 Plt Count 189 10^3/ul (150-450) 09/24/18 20:13 MPV 9.7 fL (7.4-10.4) 09/24/18 20:13 Neut % (Auto) 74.9 % 09/24/18 20:13 Lymph % (Auto) 10.4 % 09/24/18 20:13 [place] % (Auto) 12.6 % 09/24/18 20:13 Eos % (Auto) 1.9 % 09/24/18 20:13 Baso % (Auto) 0.2 % 09/24/18 20:13 Absolute Neuts (auto) 8.9 10^3/ul (1.5-7.7) H 09/24/18 20:13 Absolute Lymphs (auto) 1.2 10^3/ul (1.0-4.8) 09/24/18 20:13 Absolute Monos (auto) 1.5 10^3/ul (0-0.8) H 09/24/18 20:13 Absolute Eos (auto) 0.2 10^3/ul (0-0.6) 09/24/18 20:13 Absolute Basos (auto) 0 10^3/ul (0-0.2) 09/24/18 20:13 Absolute Nucleated RBC 0 10^3/ul 09/24/18 20:13 Nucleated RBC % 0.1 09/24/18 20:13 Sodium 134 mmol/L (135-145) L 09/24/18 20:13 Potassium 4.7 mmol/L (3.5-5.0) 09/24/18 20:13 Chloride 95 mmol/L (101-111) L 09/24/18 20:13 Carbon Dioxide 26 mmol/L (22-32) 09/24/18 20:13 Anion Gap 13 mmol/L (2-11) H 09/24/18 20:13 BUN 42 mg/dL (6-24) H 09/24/18 20:13 Creatinine 1.17 mg/dL (0.51-0.95) H 09/24/18 20:13 Est GFR ( Amer) 55.8 (>60) 09/24/18 20:13 Est GFR (Non-Af Amer) 46.1 (>60) 09/24/18 20:13 BUN/Creatinine Ratio 35.9 (8-20) H 09/24/18 20:13 Glucose 369 mg/dL (70-100) H 09/24/18 20:13 Lactic Acid 3.1 mmol/L (0.5-2.0) H* 09/24/18 20:13 Calcium 10.7 mg/dL (8.6-10.3) H 09/24/18 20:13 Total Bilirubin 0.40 mg/dL (0.2-1.0) 09/24/18 20:13 AST 36 U/L (13-39) 09/24/18 20:13 ALT 29 U/L (7-52) 09/24/18 20:13 Alkaline Phosphatase 84 U/L (34-104) 09/24/18 20:13 Troponin I 0.03 ng/mL (<0.04) 09/24/18 20:13 Total Protein 8.4 g/dL (6.4-8.9) 09/24/18 20:13 Albumin 4.1 g/dL (3.2-5.2) 09/24/18 20:13 Globulin 4.3 g/dL (2-4) H 09/24/18 20:13 Albumin/Globulin Ratio 1.0 (1-3) 09/24/18 20:13 TSH 2.99 mcIU/mL (0.34-5.60) 09/24/18 20:13 Urine Color Yellow 09/24/18 20:46 Urine Appearance Turbid 09/24/18 20:46 Urine pH 6.0 (5-9) 09/24/18 20:46 Ur Specific [place] 1.015 (1.010-1.030) 09/24/18 20:46 Urine Protein 2+(100 mg/dl) (Negative) A 09/24/18 20:46 Urine Ketones Negative (Negative) 09/24/18 20:46 Urine Blood 2+ (Negative) A 09/24/18 20:46 Urine Nitrate Negative (Negative) 09/24/18 20:46 Urine Bilirubin Negative (Negative) 09/24/18 20:46 Urine Urobilinogen Negative (Negative) 09/24/18 20:46 Ur Leukocyte Esterase 3+ (Negative) A 09/24/18 20:46 Urine WBC (Auto) 3+(>20/hpf) (Absent) A 09/24/18 20:46 Urine RBC (Auto) 3+(>10/hpf) (Absent) A 09/24/18 20:46 Urine Bacteria Absent (Absent) 09/24/18 20:46 Urine Yeast Present (Absent) A 09/24/18 20:46 Urine Glucose 3+(>=500 mg/dl) (Negative) A 09/24/18 20:46 Microbiology and Other Data: Microbiology 09/24/18 23:49 Aerobic Blood Culture - Preliminary Blood Venous No Growth Day 1 Anaerobic Blood Culture - Preliminary No Growth Day 1 09/24/18 23:49 Aerobic Blood Culture - Preliminary Blood Venous No Growth Day 1 Anaerobic Blood Culture - Preliminary No Growth Day 1 09/24/18 20:46 Urine Culture - Final Urine Kim Albicans Assess/Plan/Problems-Billing Assessment: This is a 68 year old female with history of MS and neurogenic bladder who underwent ureteral stenting on Wednesday and then presented to the ED on 09/24 with fevers, flank pain, and delirium - Patient Problems (1) Complicated urinary tract infection Comment: with recent instrumentation and stent continue ceftriaxone, cx neg apart for kim. Due tyo overnight fever, will tx Kim as the possible cause of UTI and start IV fluconasole D/w Dr. Eaton- CT abd /pelvis ordered. Blood cx repeated (2) Acute delirium Comment: Likely infectious Improving (3) Multiple sclerosis Comment: Wheelchair bound Continue baclofen. (4) Seizure disorder Comment: Continue Carbamazepine. avoid fluoroquinolones for uti (5) Neurogenic bladder Comment: continue wise catheter for now; at home straight caths 6-8x/day (6) Lower back pain Comment: CT of lumbar spine shows no pathology that could be responsible for LBP (7) DM2 (diabetes mellitus, type 2) Comment: Uncontrolled-likley worsened by infection, HB A1C 9.3. cont glipizide. Pt had GI intolerance to metformin in the past. will cont ISS . Lantus started 09/26/18, will increase the dose today (8) ROSSANA (acute kidney injury) Comment: due to ongoing infection. Will start IVF (9) DVT prophylaxis Comment: HSQ Status and Disposition: inpatient
[2018-09-27] MEDS ORDERED: Magnesium CITRATE* 300 ML BTL PO ONE (11:57)
[2018-09-27 12:06] LABS: Urine Appearance Turbid; Urine Bacteria Absent (Absent); Urine Bilirubin Negative (Negative); Urine Blood 2+ (Negative); Urine Color Yellow; Urine Glucose 3+(>=500 mg/dL) (Negative); Urine Ketones Negative (Negative); Urine Nitrite Negative (Negative); Urine Protein 2+(100 mg/dL) (Negative); Urine Red Blood Cell 3+(>10/hpf) (Absent); Urine Specific Gravity 1.016 (1.010-1.030); Urine Urobilinogen Negative (Negative); Urine White Blood Cell 3+(>20/hpf) (Absent)
[2018-09-27] MEDS ORDERED: Insulin GLARGINE(*) 1 UNITS UNIT SUBCUT ONE (12:07)
[2018-09-27] MEDS ORDERED: Insulin LISPRO* 1 UNITS UNIT SUBCUT ONE (12:07)
[2018-09-27] MEDS ORDERED: Dextrose 50% Syringe 50 ML* 25 GM/50 ML SYRINGE IV PUSH PRN (12:07)
[2018-09-27 12:08] LABS: C Reactive Protein 104.07 mg/L (<8.01)
[2018-09-27] MEDS: PTO: Anastrozole (NF) 1 MG TAB PO SCH (12:44)
[2018-09-27] MEDS ORDERED: Scopolamine 1.5 mg* PATCH TRANSDERM SCH (15:00)
[2018-09-27] MEDS: Acetaminophen TAB* 325 MG PO PRN (16:16)
[2018-09-27] MEDS: Losartan TAB* 25 MG PO SCH (17:31)
[2018-09-27] MEDS: Cholecalciferol TAB* 1000 UNITS PO SCH (17:31)
--- NOTE | 2018-09-27 18:49 | CONS ---
CONSULTATION REPORT: DATE OF CONSULT: 09/27/18 REQUESTING PHYSICIAN: Dr. Kearney. CONSULTING SERVICE: Infectious Disease. REASON FOR CONSULT: Fever. IMPRESSION: 1. Fever in the setting of left pyelonephritis and left nephrolithiasis, recent left ureteral stent placement. She had developed fever last night after being on ceftriaxone for 2 days and had fluconazole added today. She has had no fever yet during the day again. Kim may well be a pathogen in her case, nothing else grew. She had a group B strep before her stent placement, which may have been vaginal jolly. 2. Multiple sclerosis with neurogenic bladder, intermittent self- catheterization. 3. SULFA allergy. RECOMMENDATIONS: Continue same therapy including ceftriaxone and fluconazole. If she continues to spike again, we will change ceftriaxone to cefepime to add pseudomonas and resistant GNR coverage. HISTORY OF PRESENT ILLNESS: This is a 68-year-old woman with neurogenic bladder and history of kidney stones, treated with left ureteral stent on , which she tolerated well. A few days later, she developed encephalopathy due to an infection, fever of 101. She was brought to the emergency room, started on antibiotics. She had white count of 12,000 initially. Urinalysis showed blood, leukocyte esterase, and white cells. Culture grew Kim albicans. Blood cultures were negative. She had been on ceftriaxone, doing fairly well. Last night, she had a fever. This morning, fluconazole was added. Today, she had some nausea and a bowel movement, but no vomiting or abdominal pain. PAST MEDICAL HISTORY: 1. Multiple sclerosis. 2. Neurogenic bladder. 3. Urinary tract infection. 4. Nephrolithiasis and ureteral stent. 5. Diabetes. 6. Hypertension. 7. Seizure disorder. PAST SURGICAL HISTORY: Status post left breast lumpectomy. MEDICATIONS: 1. Tylenol. 2. Anastrozole. 3. Lipitor. 4. Baclofen. 5. Carbamazepine. 6. Fluconazole 200 mg IV daily. 7. Glipizide. 8. Heparin subcutaneous injection. 9. Ibuprofen. 10. Insulin glargine. 11. Insulin lispro. 12. Losartan. 13. Metoprolol. 14. Ceftriaxone 1 g a day. ALLERGIES: LISINOPRIL and SULFA. FAMILY HISTORY: Mother had leukemia. SOCIAL HISTORY: She lives with her . Nonsmoker. REVIEW OF SYSTEMS: All negative except as noted above to a 14-point review of systems. PHYSICAL EXAM: Vital Signs: Temperature 37, heart rate 98, respiratory rate 16 , blood pressure 101/62, oxygen saturation 93% on room air. In general, she is awake, not in distress. Neurologic: She is oriented x3. Follows all commands. HEENT: There is no conjunctival hemorrhage. Oropharynx without lesions. Neck is supple without mass. Heart is regular rate and rhythm without murmurs, rubs, or gallops. Lungs are clear to auscultation bilaterally. Abdomen: Soft, nontender, nondistended. There are bowel sounds present. Skin: There is no rash or splinter hemorrhage. Musculoskeletal: No spine tenderness to palpation. LABORATORY DATA: White blood cell count 9, hemoglobin 11.9, platelets 174,000. Creatinine 1.2. CRP 104, down from 133. Influenza PCR negative. Please see impressions and recommendations outlined above, which I have discussed with Dr. Kearney. Thanks for asking me to see Ms. Em in consultation. [id number]/CPS #: [id number] [facility]
[2018-09-27] MEDS: cefTRIAXone(*) 1 GM in NS 0.9% 50 ML* 50 ML IVPB SCH (21:43)
[2018-09-27] MEDS: Atorvastatin* 40 MG TAB PO SCH (21:45)
[2018-09-28 05:26] LABS: ABS Basophils 0.1 10^3/ul (0-0.2); ABS Eosinophils 0.2 10^3/ul (0-0.6); ABS Lymphocytes 1.7 10^3/ul (1.0-4.8); ABS Monocytes 1.3 10^3/ul (0-0.8); ABS Neutrophils 8.2 10^3/ul (1.5-7.7); ABS Nucleated RBC 0 10^3/ul; Hematocrit 34 % (35-47); Hemoglobin 11.4 g/dl (12.0-16.0); Lymphocyte % 14.7 %; Mean Corpuscular HGB Conc 34 g/dl (31-36); Mean Corpuscular Hemoglobin 31 pg (27-31); Mean Corpuscular Volume 91 fL (80-97); Mean Platelet Volume 8.4 fL (7.4-10.4); Nucleated Red Blood Cells % 0; Platelet Count 186 10^3/ul (150-450); Red Blood Count 3.68 10^6/ul (4.00-5.40); Red Cell Distribution Width 13 % (10.5-15); White Blood Count 11.5 10^3/ul (3.5-10.8)
[2018-09-28 05:42] LABS: Albumin 3.1 g/dL (3.2-5.2); Albumin/Globulin Ratio 0.9 (1-3); BUN/Creatinine Ratio 21.7 (8-20); Calcium 8.8 mg/dL (8.6-10.3); EGFR African American 49.9 (>60); EGFR Non-African American 41.2 (>60); Globulin 3.4 g/dL (2-4); Potassium 4.1 mmol/L (3.5-5.0); Total Bilirubin 0.3 mg/dL (0.2-1.0); Total Protein 6.5 g/dL (6.4-8.9)
[2018-09-28] MEDS: Acetaminophen TAB* 325 MG PO PRN ×2 (06:45→21:26)
[2018-09-28] MEDS ORDERED: NS 0.9% 1000 ML** 1,000 ML IV SCH ×2 (08:30)
[2018-09-28] MEDS: Baclofen TAB* 20 MG PO SCH ×4 (08:49→21:16)
[2018-09-28] MEDS: glipiZIDE TAB.XL* 5 MG PO SCH ×2 (08:49→21:16)
[2018-09-28] MEDS: Oxybutynin TAB* 5 MG PO SCH ×2 (08:50→21:17)
[2018-09-28] MEDS: Metoprolol Succinate XL TAB* 100 MG PO SCH (08:50)
[2018-09-28] MEDS: Multivitamins/Minerals TAB PO SCH (08:50)
[2018-09-28] MEDS: carBAMazepine TAB(*) 200 MG PO SCH ×2 (08:50→21:16)
[2018-09-28] MEDS: Insulin GLARGINE(*) 1 UNITS UNIT SUBCUT SCH (08:51)
[2018-09-28] MEDS: Insulin LISPRO* 1 UNITS UNIT SUBCUT SCH ×4 (08:51→21:17)
[2018-09-28] MEDS: Heparin VIAL(*) 5000 UNITS/ML VIAL (FIVE THOUSAND) SUBCUT SCH ×2 (08:52→21:16)
[2018-09-28] MEDS: Cefepime 2 GM in Dextrose(*) 2 GM/50 ML BAG IV SCH ×2 (10:19→21:16)
[2018-09-28] MEDS: Fluconazole 200 MG IVPREMIX(*) 200 MG/100 ML BAG IVPB SCH (10:20)
[2018-09-28] MEDS: PTO: Anastrozole (NF) 1 MG TAB PO SCH (12:29)
[2018-09-28] MEDS ORDERED: Insulin GLARGINE(*) 1 UNITS UNIT SUBCUT ONE (13:33)
--- NOTE | 2018-09-28 13:42 | PN ---
Subjective Date of Service: 09/28/18 Interval History: Pt feels well. Doesn't remember that she had fever last night. good appetite Objective Active Medications: Acetaminophen (Tylenol Tab*) 650 mg PO Q6H PRN PRN Reason: pain/fever Last Admin: 09/28/18 06:45 Dose: 650 mg Anastrozole (Arimidex (Nf)) 1 mg PO 1200 [facility] Last Admin: 09/28/18 12:29 Dose: 1 mg Atorvastatin Calcium (Lipitor*) 40 mg PO BEDTIME [facility] Last Admin: 09/27/18 21:45 Dose: 40 mg Baclofen (Lioresal Tab*) 20 mg PO QID [facility] Last Admin: 09/28/18 12:28 Dose: 20 mg Carbamazepine (Tegretol Tab(*)) 200 mg PO BID [facility] Last Admin: 09/28/18 08:50 Dose: 200 mg Cholecalciferol (Vitamin D Tab*) 1,000 units PO QPM [facility] Last Admin: 09/27/18 17:31 Dose: 1,000 units Dextrose (D50w Syringe 50 Ml*) 12.5 gm IV PUSH .FOR FS < 60 - SS PRN PRN Reason: FS < 60 Glipizide (Glucotrol Xl*) 5 mg PO BID [facility] Last Admin: 09/28/18 08:49 Dose: 5 mg Heparin Sodium (Porcine) (Heparin Vial(*)) 5,000 units SUBCUT Q12HR [facility] Last Admin: 09/28/18 08:52 Dose: 5,000 units Hydralazine HCl (Apresoline Iv*) 5 mg IV SLOW PU Q6H PRN PRN Reason: SBP >160 Last Admin: 09/26/18 19:40 Dose: 5 mg Fluconazole/Sodium Chloride (Diflucan 200 Mg Ivpremix(*)) 200 mg in 100 mls @ 100 mls/hr IVPB Q24H [facility] Last Admin: 09/28/18 10:20 Dose: 100 mls/hr Sodium Chloride (Ns 0.9% 1000 Ml*) 1,000 mls @ 100 mls/hr IV PER RATE [facility] Last Admin: 09/28/18 08:49 Dose: 100 mls/hr Cefepime HCl (Maxipime 2 Gm In Dextrose Duplex (*)) 2 gm in 50 mls @ 100 mls/ hr IV Q12H [facility] Last Admin: 09/28/18 10:19 Dose: 100 mls/hr Insulin Glargine (Lantus(*)) 10 units SUBCUT ONCE ONE Stop: 09/28/18 13:34 Insulin Glargine (Lantus(*)) 30 units SUBCUT Q24H [facility] Insulin Human Lispro (Humalog*) 0 units SUBCUT ACHS [facility]; Protocol Last Admin: 09/28/18 12:30 Dose: 4 units Magnesium Hydroxide (Milk Of Magnesia Liq*) 30 ml PO Q6H PRN PRN Reason: CONSTIPATION Metoprolol Succinate (Toprol Xl Tab*) 100 mg PO QAM [facility] Last Admin: 09/28/18 08:50 Dose: 100 mg Multivitamins/Minerals (Theragran/Minerals Tab*) 1 tab PO QAM [facility] Last Admin: 09/28/18 08:50 Dose: 1 tab Nystatin (Nystatin Top Powder*) 1 applic TOPICAL TID PRN PRN Reason: RASH Last Admin: 09/26/18 22:36 Dose: 1 applic Oxybutynin Chloride (Ditropan Tab*) 5 mg PO BID [facility] Last Admin: 09/28/18 08:50 Dose: 5 mg Polyethylene Glycol/Electrolytes (Miralax*) 17 gm PO 0800,2100 PRN PRN Reason: CONSTIPATION Last Admin: 09/27/18 08:52 Dose: 17 gm Vital Signs - 8 hr 09/28/18 09/28/18 09/28/18 06:38 07:56 07:57 Temperature 101.1 F Pulse Rate 94 Respiratory 18 28 28 Rate Blood Pressure 131/72 (mmHg) O2 Sat by Pulse 92 Oximetry 09/28/18 09/28/18 08:17 11:02 Temperature 98.9 F 97.7 F Pulse Rate 78 Respiratory 18 Rate Blood Pressure 98/50 (mmHg) O2 Sat by Pulse 93 Oximetry Oxygen Devices in Use Now: None Appearance: 68 yo f in nAD, aAOx2 Eyes: No Scleral Icterus, PERRLA Ears/Nose/Mouth/Throat: NL Teeth, Lips, Gums, Mucous Membranes Moist Neck: NL Appearance and Movements; NL JVP, Trachea Midline Respiratory: Symmetrical Chest Expansion and Respiratory Effort, Clear to Auscultation Cardiovascular: NL Sounds; No Murmurs; No JVD, RRR Abdominal: NL Sounds; No Tenderness; No Distention, No Hepatosplenomegaly Lymphatic: No Cervical Adenopathy Extremities: No Edema, No Clubbing, Cyanosis Skin: No Rash or Ulcers, No Nodules or Sclerosis Neurological: - - b/l LE's paralysed due to MS Result Diagrams: 09/28/18 05:19 09/28/18 05:19 Additional Lab and Data: Laboratory Last Values WBC 11.8 10^3/ul (3.5-10.8) H 09/24/18 20:13 RBC 4.45 10^6/ul (4.00-5.40) 09/24/18 20:13 Hgb 13.9 g/dl (12.0-16.0) 09/24/18 20:13 Hct 41 % (35-47) 09/24/18 20:13 MCV 92 fL (80-97) 09/24/18 20:13 MCH 31 pg (27-31) 09/24/18 20:13 MCHC 34 g/dl (31-36) 09/24/18 20:13 RDW 13 % (10.5-15) 09/24/18 20:13 Plt Count 189 10^3/ul (150-450) 09/24/18 20:13 MPV 9.7 fL (7.4-10.4) 09/24/18 20:13 Neut % (Auto) 74.9 % 09/24/18 20:13 Lymph % (Auto) 10.4 % 09/24/18 20:13 [place] % (Auto) 12.6 % 09/24/18 20:13 Eos % (Auto) 1.9 % 09/24/18 20:13 Baso % (Auto) 0.2 % 09/24/18 20:13 Absolute Neuts (auto) 8.9 10^3/ul (1.5-7.7) H 09/24/18 20:13 Absolute Lymphs (auto) 1.2 10^3/ul (1.0-4.8) 09/24/18 20:13 Absolute Monos (auto) 1.5 10^3/ul (0-0.8) H 09/24/18 20:13 Absolute Eos (auto) 0.2 10^3/ul (0-0.6) 09/24/18 20:13 Absolute Basos (auto) 0 10^3/ul (0-0.2) 09/24/18 20:13 Absolute Nucleated RBC 0 10^3/ul 09/24/18 20:13 Nucleated RBC % 0.1 09/24/18 20:13 Sodium 134 mmol/L (135-145) L 09/24/18 20:13 Potassium 4.7 mmol/L (3.5-5.0) 09/24/18 20:13 Chloride 95 mmol/L (101-111) L 09/24/18 20:13 Carbon Dioxide 26 mmol/L (22-32) 09/24/18 20:13 Anion Gap 13 mmol/L (2-11) H 09/24/18 20:13 BUN 42 mg/dL (6-24) H 09/24/18 20:13 Creatinine 1.17 mg/dL (0.51-0.95) H 09/24/18 20:13 Est GFR ( Amer) 55.8 (>60) 09/24/18 20:13 Est GFR (Non-Af Amer) 46.1 (>60) 09/24/18 20:13 BUN/Creatinine Ratio 35.9 (8-20) H 09/24/18 20:13 Glucose 369 mg/dL (70-100) H 09/24/18 20:13 Lactic Acid 3.1 mmol/L (0.5-2.0) H* 09/24/18 20:13 Calcium 10.7 mg/dL (8.6-10.3) H 09/24/18 20:13 Total Bilirubin 0.40 mg/dL (0.2-1.0) 09/24/18 20:13 AST 36 U/L (13-39) 09/24/18 20:13 ALT 29 U/L (7-52) 09/24/18 20:13 Alkaline Phosphatase 84 U/L (34-104) 09/24/18 20:13 Troponin I 0.03 ng/mL (<0.04) 09/24/18 20:13 Total Protein 8.4 g/dL (6.4-8.9) 09/24/18 20:13 Albumin 4.1 g/dL (3.2-5.2) 09/24/18 20:13 Globulin 4.3 g/dL (2-4) H 09/24/18 20:13 Albumin/Globulin Ratio 1.0 (1-3) 09/24/18 20:13 TSH 2.99 mcIU/mL (0.34-5.60) 09/24/18 20:13 Urine Color Yellow 09/24/18 20:46 Urine Appearance Turbid 09/24/18 20:46 Urine pH 6.0 (5-9) 09/24/18 20:46 Ur Specific [place] 1.015 (1.010-1.030) 09/24/18 20:46 Urine Protein 2+(100 mg/dl) (Negative) A 09/24/18 20:46 Urine Ketones Negative (Negative) 09/24/18 20:46 Urine Blood 2+ (Negative) A 09/24/18 20:46 Urine Nitrate Negative (Negative) 09/24/18 20:46 Urine Bilirubin Negative (Negative) 09/24/18 20:46 Urine Urobilinogen Negative (Negative) 09/24/18 20:46 Ur Leukocyte Esterase 3+ (Negative) A 09/24/18 20:46 Urine WBC (Auto) 3+(>20/hpf) (Absent) A 09/24/18 20:46 Urine RBC (Auto) 3+(>10/hpf) (Absent) A 09/24/18 20:46 Urine Bacteria Absent (Absent) 09/24/18 20:46 Urine Yeast Present (Absent) A 09/24/18 20:46 Urine Glucose 3+(>=500 mg/dl) (Negative) A 09/24/18 20:46 Microbiology and Other Data: Microbiology 09/24/18 23:49 Aerobic Blood Culture - Preliminary Blood Venous No Growth Day 1 Anaerobic Blood Culture - Preliminary No Growth Day 1 09/24/18 23:49 Aerobic Blood Culture - Preliminary Blood Venous No Growth Day 1 Anaerobic Blood Culture - Preliminary No Growth Day 1 09/24/18 20:46 Urine Culture - Final Urine Kim Albicans Assess/Plan/Problems-Billing Assessment: This is a 68 year old female with history of MS and neurogenic bladder who underwent ureteral stenting on Wednesday and then presented to the ED on 09/24 with fevers, flank pain, and delirium - Patient Problems (1) Complicated urinary tract infection Comment: with recent instrumentation and stent Febrile the past 2 nights . D/w Dr. Eaton, on 09/21/18 urine obtained from the left kidney during cystoscopy was positive for kim. Fluconasole IV started on 09/27/18. Also as d/w Dr. Brewer will broaden antibiotic coverage from Ceftriaxone to Cefepime. D/w Dr. Eaton-pt may need repeat cystoscopy and stent removal on Wednesday10/03/18 (2) Acute delirium Comment: Likely infectious Pt had been lethargic, but is improving (3) Multiple sclerosis Comment: Wheelchair bound Continue baclofen. (4) Seizure disorder Comment: Continue Carbamazepine. avoid fluoroquinolones for uti (5) Neurogenic bladder Comment: continue wise catheter for now; at home straight caths 6-8x/day (6) Lower back pain Comment: CT of lumbar spine shows no pathology that could be responsible for LBP (7) DM2 (diabetes mellitus, type 2) Comment: Uncontrolled-likley worsened by infection, HB A1C 9.3. cont glipizide. Pt had GI intolerance to metformin in the past. will cont ISS . Lantus started 09/26/18, will increase the dose today (8) ROSSANA (acute kidney injury) Comment: due to ongoing infection. Will start IVF (9) DVT prophylaxis Comment: HSQ Status and Disposition: inpatient
[2018-09-28] MEDS: Cholecalciferol TAB* 1000 UNITS PO SCH (17:47)
[2018-09-28] MEDS: Atorvastatin* 40 MG TAB PO SCH (21:16)
[2018-09-29] MEDS ORDERED: traMADol TAB* 50 MG ONE (00:20)
[2018-09-29] MEDS: traMADol TAB* 50 MG PO PRN (00:21)
[2018-09-29] MEDS ORDERED: Ondansetron INJ* 2 MG/ML VIAL ONE (03:53)
[2018-09-29] MEDS ORDERED: Ondansetron INJ* 2 MG/ML VIAL IV ONE (04:10)
[2018-09-29] MEDS: Acetaminophen TAB* 325 MG PO PRN ×2 (05:12→16:28)
[2018-09-29] MEDS ORDERED: Furosemide IV* 10 MG/ML 2 ML VIAL (20 MG) IV ONE (06:25)
[2018-09-29] MEDS ORDERED: Furosemide IV* 10 MG/ML 2 ML VIAL (20 MG) ONE (06:27)
--- NOTE | 2018-09-29 06:30 | PN ---
Progress Note - Progress Note Date of Service: 09/29/18 Note: Patient edematous and now paged for tachypnea, d/c IVFs, CXR and Lasix 20 mg IV ordered
[2018-09-29 08:35] LABS: Hematocrit 31 % (35-47); Hemoglobin 10.9 g/dl (12.0-16.0); Mean Corpuscular HGB Conc 35 g/dl (31-36); Mean Corpuscular Hemoglobin 32 pg (27-31); Mean Corpuscular Volume 92 fL (80-97); Platelet Count 185 10^3/ul (150-450); Red Cell Distribution Width 13 % (10.5-15); White Blood Count 10.9 10^3/ul (3.5-10.8)
[2018-09-29 08:48] LABS: C Reactive Protein 118.27 mg/L (<8.01); Calcium 8.7 mg/dL (8.6-10.3); EGFR African American 52.2 (>60); EGFR Non-African American 43.1 (>60); Potassium 4.5 mmol/L (3.5-5.0)
--- NOTE | 2018-09-29 09:05 | PN ---
Progress Note - Progress Note Date of Service: 09/29/18 SOAP: Subjective: CC: fever HPI: 68 year old woman with recent left ureteral stent placement now with fever and abd pain. No BM 2 days, +flatus, mild nausea, no vomiting. Fever overnight. No cough or dyspnea, was tachypneic overnight which is resolved. Had lasix. Objective: Vital Signs Temp 36.8 C 09/29/18 07:32 Pulse 75 09/29/18 07:32 Resp 16 09/29/18 07:32 BP 110/59 09/29/18 07:32 Pulse Ox 94 09/29/18 07:32 Intake & Output 09/28/18 09/29/18 09/29/18 18:59 06:59 18:59 Intake Total 1740 2427 Output Total 1900 Balance 1740 527 Intake: IV Fluids 1656 NS (0.9%) 1656 IVPB 411 cefepime 304 fluconazole 107 Oral 1740 360 Output: [place] 1900 Other: # Bowel Movements 0 Gen:awake, no distress HEENT: no thrush Heart:RRR no murmur Lungs:CTA BL Abd:decr BS; diffusely tender no rebound Skin: no rash MSK: no joint Laboratory Results - last 24 hr 09/28/18 09/28/18 09/28/18 11:36 16:42 17:11 WBC RBC Hgb Hct MCV MCH MCHC RDW Plt Count MPV Sodium Potassium Chloride Carbon Dioxide Anion Gap BUN Creatinine Est GFR ( Amer) Est GFR (Non-Af Amer) BUN/Creatinine Ratio Glucose POC Glucose (mg/dL) 324 H > 444 H* Glucose Meter Confirm 355 H Calcium C-Reactive Protein 09/28/18 09/29/18 09/29/18 20:56 08:09 08:09 WBC 10.9 H RBC 3.40 L Hgb 10.9 L Hct 31 L MCV 92 MCH 32 H MCHC 35 RDW 13 Plt Count 185 MPV 9.0 Sodium 133 L Potassium 4.5 Chloride 103 Carbon Dioxide 23 Anion Gap 7 BUN 26 H Creatinine 1.24 H Est GFR ( Amer) 52.2 Est GFR (Non-Af Amer) 43.1 BUN/Creatinine Ratio 21.0 H Glucose 308 H POC Glucose (mg/dL) 397 H Glucose Meter Confirm Calcium 8.7 C-Reactive Protein 118.27 H Microbiology 09/24/18 23:49 Aerobic Blood Culture - Preliminary Blood Venous No Growth Day 4 Anaerobic Blood Culture - Preliminary No Growth Day 4 09/24/18 23:49 Aerobic Blood Culture - Preliminary Blood Venous No Growth Day 4 Anaerobic Blood Culture - Preliminary No Growth Day 4 09/27/18 10:11 Urine Culture - Final Urine Kim Albicans 09/27/18 09:24 Aerobic Blood Culture - Preliminary Blood Venous No Growth Day 1 Anaerobic Blood Culture - Preliminary No Growth Day 1 Assessment: 1. fever with pyelonephritis, Kim in UC, antifungal recently started and GN coverage broadened 2. abd pain and distension ?ileus vs SBO 3. Left ureteral stent 4. neurogenic bladder Plan: 1. KUB, continue cefepime and flucon Discussed with Nadine Riddle [employer]
[2018-09-29] MEDS: Insulin LISPRO* 1 UNITS UNIT SUBCUT SCH ×5 (09:16→22:04)
[2018-09-29] MEDS: Insulin GLARGINE(*) 1 UNITS UNIT SUBCUT SCH (09:18)
[2018-09-29] MEDS: Heparin VIAL(*) 5000 UNITS/ML VIAL (FIVE THOUSAND) SUBCUT SCH ×2 (09:19→22:00)
[2018-09-29] MEDS: Multivitamins/Minerals TAB PO SCH (09:20)
[2018-09-29] MEDS: Cefepime 2 GM in Dextrose(*) 2 GM/50 ML BAG IV SCH ×2 (09:21→22:04)
[2018-09-29] MEDS: Oxybutynin TAB* 5 MG PO SCH ×2 (09:21→22:02)
[2018-09-29] MEDS: glipiZIDE TAB.XL* 5 MG PO SCH (09:21)
[2018-09-29] MEDS: Metoprolol Succinate XL TAB* 100 MG PO SCH (09:21)
[2018-09-29] MEDS: carBAMazepine TAB(*) 200 MG PO SCH ×2 (09:21→22:01)
[2018-09-29] MEDS: Baclofen TAB* 20 MG PO SCH ×4 (09:21→22:03)
--- NOTE | 2018-09-29 09:47 | PN ---
Subjective Date of Service: 09/29/18 Interval History: patient reports she feels a little better today; she reports mild abdominal bloating, no pain, passing flatulence, reports she was constipated and had large BM two days ago. Tolerated regular diet well; no nausea or vomiting. Reports back pain is better today. Reports she feels "a little better". Denies cough, sob, CP. at bedside Objective Active Medications: Acetaminophen (Tylenol Tab*) 650 mg PO Q6H PRN PRN Reason: pain/fever Last Admin: 09/29/18 05:12 Dose: 650 mg Anastrozole (Arimidex (Nf)) 1 mg PO 1200 [facility] Last Admin: 09/28/18 12:29 Dose: 1 mg Atorvastatin Calcium (Lipitor*) 40 mg PO BEDTIME [facility] Last Admin: 09/28/18 21:16 Dose: 40 mg Baclofen (Lioresal Tab*) 20 mg PO QID [facility] Last Admin: 09/29/18 09:21 Dose: 20 mg Carbamazepine (Tegretol Tab(*)) 200 mg PO BID [facility] Last Admin: 09/29/18 09:21 Dose: 200 mg Cholecalciferol (Vitamin D Tab*) 1,000 units PO QPM [facility] Last Admin: 09/28/18 17:47 Dose: 1,000 units Dextrose (D50w Syringe 50 Ml*) 12.5 gm IV PUSH .FOR FS < 60 - SS PRN PRN Reason: FS < 60 Glipizide (Glucotrol Xl*) 5 mg PO BID [facility] Last Admin: 09/29/18 09:21 Dose: 5 mg Heparin Sodium (Porcine) (Heparin Vial(*)) 5,000 units SUBCUT Q12HR [facility] Last Admin: 09/29/18 09:19 Dose: 5,000 units Hydralazine HCl (Apresoline Iv*) 5 mg IV SLOW PU Q6H PRN PRN Reason: SBP >160 Last Admin: 09/26/18 19:40 Dose: 5 mg Fluconazole/Sodium Chloride (Diflucan 200 Mg Ivpremix(*)) 200 mg in 100 mls @ 100 mls/hr IVPB Q24H [facility] Last Admin: 09/28/18 10:20 Dose: 100 mls/hr Cefepime HCl (Maxipime 2 Gm In Dextrose Duplex (*)) 2 gm in 50 mls @ 100 mls/ hr IV Q12H [facility] Last Admin: 09/29/18 09:21 Dose: 100 mls/hr Insulin Glargine (Lantus(*)) 30 units SUBCUT Q24H [facility] Last Admin: 09/29/18 09:18 Dose: 30 units Insulin Human Lispro (Humalog*) 0 units SUBCUT ACHS [facility]; Protocol Last Admin: 09/29/18 09:16 Dose: 3 units Magnesium Hydroxide (Milk Of Magnesia Liq*) 30 ml PO Q6H PRN PRN Reason: CONSTIPATION Metoprolol Succinate ([facility] Xl Tab*) [facility] Admin: 09/29/18 09:21 Dose: 100 mg Multivitamins/Minerals (Theragran/Minerals Tab*) [facility] Last Admin: 09/29/18 09:20 Dose: 1 tab Nystatin (Nystatin Top Powder*) 1 applic TOPICAL TID PRN PRN Reason: RASH Last Admin: 09/26/18 22:36 Dose: 1 applic Ondansetron HCl (Zofran Inj*) 4 mg IV Q8H PRN PRN Reason: NAUSEA Oxybutynin Chloride (Ditropan Tab*) 5 mg PO BID [facility] Last Admin: 09/29/18 09:21 Dose: 5 mg Polyethylene Glycol/Electrolytes (Miralax*) 17 gm PO 0800,2100 PRN PRN Reason: CONSTIPATION Last Admin: 09/27/18 08:52 Dose: 17 gm Tramadol HCl (Ultram*) 50 mg PO Q12H PRN PRN Reason: PAIN Last Admin: 09/29/18 00:21 Dose: 50 mg Vital Signs - 8 hr 09/29/18 09/29/18 09/29/18 03:28 03:38 04:06 Temperature 97.9 F Pulse Rate 85 Respiratory 18 18 Rate Blood Pressure 140/69 (mmHg) O2 Sat by Pulse 89 94 Oximetry 09/29/18 07:32 Temperature 98.2 F Pulse Rate 75 Respiratory 16 Rate Blood Pressure 110/59 (mmHg) O2 Sat by Pulse 94 Oximetry Oxygen Devices in Use Now: None Appearance: chronically ill 68 yo female laying in bed A=O x3 in NAD Eyes: No Scleral Icterus, PERRLA Ears/Nose/Mouth/Throat: - - dry MM Neck: NL Appearance and Movements; NL JVP Respiratory: Symmetrical Chest Expansion and Respiratory Effort, Clear to Auscultation Cardiovascular: NL Sounds; No Murmurs; No JVD, RRR, No Edema Abdominal: - - mild distention, NL BS, nontender Neurological: Alert and Oriented x 3, - - le - can wiggles feet but cant move legs; extremities show muscle atrophy. 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 5/5 L >R Lines/Tubes/Other Access: Clean, Dry and Intact Peripheral IV Nutrition: Taking PO's Result Diagrams: 09/29/18 08:09 09/29/18 08:09 Additional Lab and Data: Laboratory Last Values WBC 11.8 10^3/ul (3.5-10.8) H 09/24/18 20:13 RBC 4.45 10^6/ul (4.00-5.40) 09/24/18 20:13 Hgb 13.9 g/dl (12.0-16.0) 09/24/18 20:13 Hct 41 % (35-47) 09/24/18 20:13 MCV 92 fL (80-97) 09/24/18 20:13 MCH 31 pg (27-31) 09/24/18 20:13 MCHC 34 g/dl (31-36) 09/24/18 20:13 RDW 13 % (10.5-15) 09/24/18 20:13 Plt Count 189 10^3/ul (150-450) 09/24/18 20:13 MPV 9.7 fL (7.4-10.4) 09/24/18 20:13 Neut % (Auto) 74.9 % 09/24/18 20:13 Lymph % (Auto) 10.4 % 09/24/18 20:13 [place] % (Auto) 12.6 % 09/24/18 20:13 Eos % (Auto) 1.9 % 09/24/18 20:13 Baso % (Auto) 0.2 % 09/24/18 20:13 Absolute Neuts (auto) 8.9 10^3/ul (1.5-7.7) H 09/24/18 20:13 Absolute Lymphs (auto) 1.2 10^3/ul (1.0-4.8) 09/24/18 20:13 Absolute Monos (auto) 1.5 10^3/ul (0-0.8) H 09/24/18 20:13 Absolute Eos (auto) 0.2 10^3/ul (0-0.6) 09/24/18 20:13 Absolute Basos (auto) 0 10^3/ul (0-0.2) 09/24/18 20:13 Absolute Nucleated RBC 0 10^3/ul 09/24/18 20:13 Nucleated RBC % 0.1 09/24/18 20:13 Sodium 134 mmol/L (135-145) L 09/24/18 20:13 Potassium 4.7 mmol/L (3.5-5.0) 09/24/18 20:13 Chloride 95 mmol/L (101-111) L 09/24/18 20:13 Carbon Dioxide 26 mmol/L (22-32) 09/24/18 20:13 Anion Gap 13 mmol/L (2-11) H 09/24/18 20:13 BUN 42 mg/dL (6-24) H 09/24/18 20:13 Creatinine 1.17 mg/dL (0.51-0.95) H 09/24/18 20:13 Est GFR ( Amer) 55.8 (>60) 09/24/18 20:13 Est GFR (Non-Af Amer) 46.1 (>60) 09/24/18 20:13 BUN/Creatinine Ratio 35.9 (8-20) H 09/24/18 20:13 Glucose 369 mg/dL (70-100) H 09/24/18 20:13 Lactic Acid 3.1 mmol/L (0.5-2.0) H* 09/24/18 20:13 Calcium 10.7 mg/dL (8.6-10.3) H 09/24/18 20:13 Total Bilirubin 0.40 mg/dL (0.2-1.0) 09/24/18 20:13 AST 36 U/L (13-39) 09/24/18 20:13 ALT 29 U/L (7-52) 09/24/18 20:13 Alkaline Phosphatase 84 U/L (34-104) 09/24/18 20:13 Troponin I 0.03 ng/mL (<0.04) 09/24/18 20:13 Total Protein 8.4 g/dL (6.4-8.9) 09/24/18 20:13 Albumin 4.1 g/dL (3.2-5.2) 09/24/18 20:13 Globulin 4.3 g/dL (2-4) H 09/24/18 20:13 Albumin/Globulin Ratio 1.0 (1-3) 09/24/18 20:13 TSH 2.99 mcIU/mL (0.34-5.60) 09/24/18 20:13 Urine Color Yellow 09/24/18 20:46 Urine Appearance Turbid 09/24/18 20:46 Urine pH 6.0 (5-9) 09/24/18 20:46 Ur Specific [place] 1.015 (1.010-1.030) 09/24/18 20:46 Urine Protein 2+(100 mg/dl) (Negative) A 09/24/18 20:46 Urine Ketones Negative (Negative) 09/24/18 20:46 Urine Blood 2+ (Negative) A 09/24/18 20:46 Urine Nitrate Negative (Negative) 09/24/18 20:46 Urine Bilirubin Negative (Negative) 09/24/18 20:46 Urine Urobilinogen Negative (Negative) 09/24/18 20:46 Ur Leukocyte Esterase 3+ (Negative) A 09/24/18 20:46 Urine WBC (Auto) 3+(>20/hpf) (Absent) A 09/24/18 20:46 Urine RBC (Auto) 3+(>10/hpf) (Absent) A 09/24/18 20:46 Urine Bacteria Absent (Absent) 09/24/18 20:46 Urine Yeast Present (Absent) A 09/24/18 20:46 Urine Glucose 3+(>=500 mg/dl) (Negative) A 09/24/18 20:46 Microbiology and Other Data: Microbiology 09/24/18 23:49 Aerobic Blood Culture - Preliminary Blood Venous No Growth Day 1 Anaerobic Blood Culture - Preliminary No Growth Day 1 09/24/18 23:49 Aerobic Blood Culture - Preliminary Blood Venous No Growth Day 1 Anaerobic Blood Culture - Preliminary No Growth Day 1 09/24/18 20:46 Urine Culture - Final Urine Kim Albicans Assess/Plan/Problems-Billing Assessment: This is a 68 year old female with history of MS and neurogenic bladder who underwent ureteral stenting on Wednesday and then presented to the ED on 09/24 with fevers, flank pain, and delirium - Patient Problems (1) Complicated urinary tract infection Comment: with recent instrumentation and stent; unclear if infection is secondary to the stent or possible previous infection. Dr. Childers - 09/21/18 urine obtained from the left kidney during cystoscopy was positive for kim. Low grade temp last night. Discussed with Dr. Brewer today, continue Cefepime. Fluconasole IV started on 09/27/18. Dr. Eaton following; pt may need repeat cystoscopy and stent removal on Wednesday10/03/18 (2) Tachypnea Comment: - Overnight physcian was called for SOB, tachypnea, hypoxia? early this morning - IVFs DC'd and lasix 20 mg was given. Chest xray showing "small left basilar infiltrate" - no pulm edema noted. Tachypnea resolved. Low suspicion for pneumonia but will continue to follow. Continues to have 2L O2 on during evaluation; nurse to attempt to wean. Patient is being covered on cefepime. Hold IVF fluids at this time. (3) DM2 (diabetes mellitus, type 2) Comment: - Uncontrolled-likely worsened by infection, HB A1C 9.3. Hold glipizide ( received dose this am). Pt had GI intolerance to metformin in the past. - Continue FSBG ACHS with lispro SS. Lantus started 09/26/18, dose increased this morning from 10 to 30 units Q24/hr - continues to have high BG this am but with change of lantus dose this am, continue to monitor (4) Abdominal bloating Comment: - possible abdominal bloating, patients symptoms are vague; per pt maybe slightly bloated, no pain, nausea, reports constipation started on a bowel regimen a few days ago and had large BM two days ago. She normally has BMs daily at home. ID saw the patient this am and had concern for SBO or ileus. KUB obtained showing no pathology. - change diet to liquid and continue to monitor - continue bowel regimen - DC miralax - patient is not drinking enough fluids (5) Multiple sclerosis Comment: Wheelchair bound Continue baclofen. (6) ROSSANA (acute kidney injury) Comment: due to ongoing infection. slightly improved today - hold IVF with earlier episode of tachypnea receiving IV lasix. repeat BMP in am (7) Acute delirium Comment: Likely infectious Pt had been lethargic, but continues to improve (8) Lower back pain Comment: CT of lumbar spine shows no pathology that could be responsible for LBP (9) Neurogenic bladder Comment: continue wise catheter for now; at home straight caths 6-8x/day (10) DVT prophylaxis Comment: Heparin subQ (11) Full code status Status and Disposition: inpatient.
[2018-09-29] MEDS: Fluconazole 200 MG IVPREMIX(*) 200 MG/100 ML BAG IVPB SCH (11:35)
[2018-09-29] MEDS: PTO: Anastrozole (NF) 1 MG TAB PO SCH (13:32)
[2018-09-29] MEDS: Cholecalciferol TAB* 1000 UNITS PO SCH (16:31)
[2018-09-29] MEDS ORDERED: Insulin LISPRO* 1 UNITS UNIT SUBCUT ONE (17:30)
[2018-09-29] MEDS: Ondansetron INJ* 2 MG/ML VIAL IV PRN (21:56)
[2018-09-29] MEDS: Senna TAB PO SCH (22:02)
[2018-09-29] MEDS: Atorvastatin* 40 MG TAB PO SCH (22:02)
[2018-09-30 06:58] LABS: ABS Basophils 0.1 10^3/ul (0-0.2); ABS Eosinophils 0.3 10^3/ul (0-0.6); ABS Lymphocytes 1.5 10^3/ul (1.0-4.8); ABS Monocytes 1.1 10^3/ul (0-0.8); ABS Neutrophils 6.5 10^3/ul (1.5-7.7); ABS Nucleated RBC 0 10^3/ul; Eosinophil % 2.9 %; Hematocrit 31 % (35-47); Hemoglobin 10.5 g/dl (12.0-16.0); Lymphocyte % 16.1 %; Mean Corpuscular HGB Conc 34 g/dl (31-36); Mean Corpuscular Hemoglobin 31 pg (27-31); Mean Corpuscular Volume 93 fL (80-97); Mean Platelet Volume 8.7 fL (7.4-10.4); Nucleated Red Blood Cells % 0.1; Platelet Count 188 10^3/ul (150-450); Red Blood Count 3.36 10^6/ul (4.00-5.40); Red Cell Distribution Width 13 % (10.5-15); White Blood Count 9.5 10^3/ul (3.5-10.8)
[2018-09-30 07:03] LABS: Calcium 8.8 mg/dL (8.6-10.3); Potassium 4.3 mmol/L (3.5-5.0)
[2018-09-30 07:09] LABS: BUN/Creatinine Ratio 20.3 (8-20); EGFR African American 55.3 (>60); EGFR Non-African American 45.7 (>60)
[2018-09-30] MEDS: traMADol TAB* 50 MG PO PRN ×2 (07:11→22:14)
[2018-09-30] MEDS: Ondansetron INJ* 2 MG/ML VIAL IV PRN (07:12)
--- NOTE | 2018-09-30 08:19 | PN ---
Subjective Date of Service: 09/30/18 Interval History: Ms. Em seen and examined at bedside with present. She states she still "feels terrible" and did not sleep well. Her is concerned that she is not improving as quickly as she has in the past. She continues to have some nausea and flank pain. Had a fever last evening. Denies SOB, chest pain. Family History: Unchanged from Admission Social History: Unchanged from Admission Past Medical History: Unchanged from Admission Objective Active Medications: Acetaminophen (Tylenol Tab*) 650 mg PO Q6H PRN PRN Reason: pain/fever Last Admin: 09/29/18 16:28 Dose: 650 mg Anastrozole (Arimidex (Nf)) 1 mg PO 1200 [facility] Last Admin: 09/29/18 13:32 Dose: 1 mg Atorvastatin Calcium (Lipitor*) 40 mg PO BEDTIME [facility] Last Admin: 09/29/18 22:02 Dose: 40 mg Baclofen (Lioresal Tab*) 20 mg PO QID [facility] Last Admin: 09/29/18 22:03 Dose: 20 mg Carbamazepine (Tegretol Tab(*)) 200 mg PO BID [facility] Last Admin: 09/29/18 22:01 Dose: 200 mg Cholecalciferol (Vitamin D Tab*) 1,000 units PO QPM [facility] Last Admin: 09/29/18 16:31 Dose: 1,000 units Dextrose (D50w Syringe 50 Ml*) 12.5 gm IV PUSH .FOR FS < 60 - SS PRN PRN Reason: FS < 60 Docusate Sodium (Colace Cap*) 100 mg PO DAILY PRN PRN Reason: CONSTIPATION Heparin Sodium (Porcine) (Heparin Vial(*)) 5,000 units SUBCUT Q12HR [facility] Last Admin: 09/29/18 22:00 Dose: 5,000 units Hydralazine HCl (Apresoline Iv*) 5 mg IV SLOW PU Q6H PRN PRN Reason: SBP >160 Last Admin: 09/26/18 19:40 Dose: 5 mg Fluconazole/Sodium Chloride (Diflucan 200 Mg Ivpremix(*)) 200 mg in 100 mls @ 100 mls/hr IVPB Q24H [facility] Last Admin: 09/29/18 11:35 Dose: 100 mls/hr Cefepime HCl (Maxipime 2 Gm In Dextrose Duplex (*)) 2 gm in 50 mls @ 100 mls/ hr IV Q12H [facility] Last Admin: 09/29/18 22:04 Dose: 100 mls/hr Insulin Glargine (Lantus(*)) 30 units SUBCUT Q24H [facility] Last Admin: 09/29/18 09:18 Dose: 30 units Insulin Human Lispro (Humalog*) 0 units SUBCUT ACHS [facility]; Protocol Last Admin: 09/29/18 22:04 Dose: 8 unit Magnesium Hydroxide (Milk Of Magnhmea Liq*) 30 ml PO Q6H PRN PRN Reason: CONSTIPATION Metoprolol Succinate (Toprol Xl Tab*) 100 mg PO QAM [facility] Last Admin: 09/29/18 09:21 Dose: 100 mg Multivitamins/Minerals (Theragran/Minerals Tab*) 1 tab PO QAM [facility] Last Admin: 09/29/18 09:20 Dose: 1 tab Nystatin (Nystatin Top Powder*) 1 applic TOPICAL TID PRN PRN Reason: RASH Last Admin: 09/26/18 22:36 Dose: 1 applic Ondansetron HCl (Zofran Inj*) 4 mg IV Q8H PRN PRN Reason: NAUSEA Last Admin: 09/30/18 07:12 Dose: 4 mg Oxybutynin Chloride (Ditropan Tab*) 5 mg PO BID [facility] Last Admin: 09/29/18 22:02 Dose: 5 mg Senna (Senokot Tab*) 1 tab PO BEDTIME [facility] Last Admin: 09/29/18 22:02 Dose: 1 tab Tramadol HCl (Ultram*) 50 mg PO Q12H PRN PRN Reason: PAIN Last Admin: 09/30/18 07:11 Dose: 50 mg Vital Signs - 8 hr 09/30/18 09/30/18 09/30/18 03:23 07:11 07:12 Temperature 97.5 F 98.3 F Pulse Rate 77 70 Respiratory 19 14 14 Rate Blood Pressure 119/63 122/67 (mmHg) O2 Sat by Pulse 97 Oximetry Oxygen Devices in Use Now: None Appearance: Chronically ill appearing female, lying in bed, NAD Eyes: No Scleral Icterus, PERRLA Ears/Nose/Mouth/Throat: Clear Oropharnyx, - - no thrush, oral mucosa somewhat dry Neck: NL Appearance and Movements; NL JVP Respiratory: Symmetrical Chest Expansion and Respiratory Effort, Clear to Auscultation Cardiovascular: NL Sounds; No Murmurs; No JVD, RRR Abdominal: - - BS present, mildly distended Extremities: No Edema, No Clubbing, Cyanosis Neurological: Alert and Oriented x 3 Lines/Tubes/Other Access: Clean, Dry and Intact Peripheral IV Nutrition: Taking PO's Result Diagrams: 09/30/18 06:35 09/30/18 06:35 Additional Lab and Data: Laboratory Last Values WBC 11.8 10^3/ul (3.5-10.8) H 09/24/18 20:13 RBC 4.45 10^6/ul (4.00-5.40) 09/24/18 20:13 Hgb 13.9 g/dl (12.0-16.0) 09/24/18 20:13 Hct 41 % (35-47) 09/24/18 20:13 MCV 92 fL (80-97) 09/24/18 20:13 MCH 31 pg (27-31) 09/24/18 20:13 MCHC 34 g/dl (31-36) 09/24/18 20:13 RDW 13 % (10.5-15) 09/24/18 20:13 Plt Count 189 10^3/ul (150-450) 09/24/18 20:13 MPV 9.7 fL (7.4-10.4) 09/24/18 20:13 Neut % (Auto) 74.9 % 09/24/18 20:13 Lymph % (Auto) 10.4 % 09/24/18 20:13 [place] % (Auto) 12.6 % 09/24/18 20:13 Eos % (Auto) 1.9 % 09/24/18 20:13 Baso % (Auto) 0.2 % 09/24/18 20:13 Absolute Neuts (auto) 8.9 10^3/ul (1.5-7.7) H 09/24/18 20:13 Absolute Lymphs (auto) 1.2 10^3/ul (1.0-4.8) 09/24/18 20:13 Absolute Monos (auto) 1.5 10^3/ul (0-0.8) H 09/24/18 20:13 Absolute Eos (auto) 0.2 10^3/ul (0-0.6) 09/24/18 20:13 Absolute Basos (auto) 0 10^3/ul (0-0.2) 09/24/18 20:13 Absolute Nucleated RBC 0 10^3/ul 09/24/18 20:13 Nucleated RBC % 0.1 09/24/18 20:13 Sodium 134 mmol/L (135-145) L 09/24/18 20:13 Potassium 4.7 mmol/L (3.5-5.0) 09/24/18 20:13 Chloride 95 mmol/L (101-111) L 09/24/18 20:13 Carbon Dioxide 26 mmol/L (22-32) 09/24/18 20:13 Anion Gap 13 mmol/L (2-11) H 09/24/18 20:13 BUN 42 mg/dL (6-24) H 09/24/18 20:13 Creatinine 1.17 mg/dL (0.51-0.95) H 09/24/18 20:13 Est GFR ( Amer) 55.8 (>60) 09/24/18 20:13 Est GFR (Non-Af Amer) 46.1 (>60) 09/24/18 20:13 BUN/Creatinine Ratio 35.9 (8-20) H 09/24/18 20:13 Glucose 369 mg/dL (70-100) H 09/24/18 20:13 Lactic Acid 3.1 mmol/L (0.5-2.0) H* 09/24/18 20:13 Calcium 10.7 mg/dL (8.6-10.3) H 09/24/18 20:13 Total Bilirubin 0.40 mg/dL (0.2-1.0) 09/24/18 20:13 AST 36 U/L (13-39) 09/24/18 20:13 ALT 29 U/L (7-52) 09/24/18 20:13 Alkaline Phosphatase 84 U/L (34-104) 09/24/18 20:13 Troponin I 0.03 ng/mL (<0.04) 09/24/18 20:13 Total Protein 8.4 g/dL (6.4-8.9) 09/24/18 20:13 Albumin 4.1 g/dL (3.2-5.2) 09/24/18 20:13 Globulin 4.3 g/dL (2-4) H 09/24/18 20:13 Albumin/Globulin Ratio 1.0 (1-3) 09/24/18 20:13 TSH 2.99 mcIU/mL (0.34-5.60) 09/24/18 20:13 Urine Color Yellow 09/24/18 20:46 Urine Appearance Turbid 09/24/18 20:46 Urine pH 6.0 (5-9) 09/24/18 20:46 Ur Specific [place] 1.015 (1.010-1.030) 09/24/18 20:46 Urine Protein 2+(100 mg/dl) (Negative) A 09/24/18 20:46 Urine Ketones Negative (Negative) 09/24/18 20:46 Urine Blood 2+ (Negative) A 09/24/18 20:46 Urine Nitrate Negative (Negative) 09/24/18 20:46 Urine Bilirubin Negative (Negative) 09/24/18 20:46 Urine Urobilinogen Negative (Negative) 09/24/18 20:46 Ur Leukocyte Esterase 3+ (Negative) A 09/24/18 20:46 Urine WBC (Auto) 3+(>20/hpf) (Absent) A 09/24/18 20:46 Urine RBC (Auto) 3+(>10/hpf) (Absent) A 09/24/18 20:46 Urine Bacteria Absent (Absent) 09/24/18 20:46 Urine Yeast Present (Absent) A 09/24/18 20:46 Urine Glucose 3+(>=500 mg/dl) (Negative) A 09/24/18 20:46 Microbiology and Other Data: Microbiology 09/24/18 23:49 Aerobic Blood Culture - Preliminary Blood Venous No Growth Day 1 Anaerobic Blood Culture - Preliminary No Growth Day 1 09/24/18 23:49 Aerobic Blood Culture - Preliminary Blood Venous No Growth Day 1 Anaerobic Blood Culture - Preliminary No Growth Day 1 09/24/18 20:46 Urine Culture - Final Urine Kim Albicans Assess/Plan/Problems-Billing Assessment: This is a 68 year old female with history of MS and neurogenic bladder who underwent ureteral stenting on Wednesday and then presented to the ED on 09/24 with fevers, flank pain, and delirium - Patient Problems (1) Complicated urinary tract infection Code(s): N39.0 - URINARY TRACT INFECTION, SITE NOT SPECIFIED Comment: With recent instrumentation and stent Unclear if infection is secondary to the stent or possible previous infection. Urine obtained from left kidney during cystoscopy on 09/21/18 was positive for kim. Low grade temp again last night. Discussed with Dr. Brewer today, continue Cefepime and fluconazole. Dr. Eaton following, pt may need repeat cystoscopy and stent removal on Wednesday. (2) Tachypnea Code(s): R06.82 - TACHYPNEA, NOT ELSEWHERE CLASSIFIED Comment: Not a current issue Question of small left basilar infiltrate, pt is on cefepime which will cover lung pathogens. (3) DM2 (diabetes mellitus, type 2) Comment: Uncontrolled-likely worsened by infection, HB A1C 9.3. Hold glipizide. Pt had GI intolerance to metformin in the past. Continue FSBG ACHS with lispro SS. Lantus started 09/26/18. (4) Abdominal bloating Code(s): R14.0 - ABDOMINAL DISTENSION (GASEOUS) Comment: KUB negative for obstruction, pt may have obstipation Try dose of lactulose, continue clear liquids Continue docusate, senna, prn MOM (5) Multiple sclerosis Code(s): G35 - MULTIPLE SCLEROSIS Comment: Wheelchair bound Continue baclofen. (6) ROSSANA (acute kidney injury) Code(s): N17.9 - ACUTE KIDNEY FAILURE, UNSPECIFIED Comment: Due to ongoing infection. Slightly improved today Continue to follow (7) Acute delirium Code(s): R41.0 - DISORIENTATION, UNSPECIFIED Comment: Likely infectious Pt had been lethargic, but continues to improve Not back to baseline (8) Lower back pain Code(s): M54.5 - LOW BACK PAIN Comment: CT of lumbar spine shows no pathology that could be responsible for LBP (9) Neurogenic bladder Code(s): N31.9 - NEUROMUSCULAR DYSFUNCTION OF BLADDER, UNSPECIFIED Comment: Continue wise catheter for now; at home, straight caths 6-8x/day (10) DVT prophylaxis Comment: Heparin subQ (11) Full code status Code(s): Z78.9 - OTHER SPECIFIED HEALTH STATUS Status and Disposition: inpatient.
[2018-09-30] MEDS: Oxybutynin TAB* 5 MG PO SCH ×2 (09:09→22:08)
[2018-09-30] MEDS: carBAMazepine TAB(*) 200 MG PO SCH ×2 (09:09→22:08)
[2018-09-30] MEDS: Metoprolol Succinate XL TAB* 100 MG PO SCH (09:09)
[2018-09-30] MEDS: Baclofen TAB* 20 MG PO SCH ×4 (09:09→22:07)
[2018-09-30] MEDS: Multivitamins/Minerals TAB PO SCH (09:09)
[2018-09-30] MEDS: Insulin GLARGINE(*) 1 UNITS UNIT SUBCUT SCH (09:09)
[2018-09-30] MEDS: Insulin LISPRO* 1 UNITS UNIT SUBCUT SCH ×4 (09:10→22:04)
[2018-09-30] MEDS: Cefepime 2 GM in Dextrose(*) 2 GM/50 ML BAG IV SCH ×2 (09:10→21:56)
[2018-09-30] MEDS: Fluconazole 200 MG IVPREMIX(*) 200 MG/100 ML BAG IVPB SCH (09:10)
[2018-09-30] MEDS: Heparin VIAL(*) 5000 UNITS/ML VIAL (FIVE THOUSAND) SUBCUT SCH ×2 (09:10→22:05)
[2018-09-30] MEDS ORDERED: Metoclopramide IV* 5 MG/ML 2 ML VIAL IV PRN (09:38)
--- NOTE | 2018-09-30 10:45 | PN ---
Progress Note - Progress Note Date of Service: 09/30/18 SOAP: Subjective: CC: fever HPI: 68 year old woman with recent left ureteral stent placement now with fever and abd pain. No BM +flatus, nausea a little better, no fever overnight. No diarrhea. Objective: Vital Signs Temp 36.8 C 09/30/18 07:12 Pulse 70 09/30/18 07:12 Resp 14 09/30/18 09:10 BP 122/67 09/30/18 07:12 Pulse Ox 97 09/30/18 07:12 Intake & Output 09/29/18 09/30/18 09/30/18 18:59 06:59 18:59 Intake Total 2320 170 450 Output Total 3200 1775 Balance -880 -1605 450 Intake: IV Fluids 200 20 cefepime 100 fluconazole 100 20 IVPB 50 fluconazole 50 Oral 2120 100 450 Output: Urine 1600 725 [place] 1600 1050 Other: # Bowel Movements 0 Gen:awake, no distress HEENT: no thrush Heart:RRR no murmur Lungs:CTA BL Abd:decr BS; mildly distended Skin: no rash MSK: no joint Assessment: 1. fever, improved; with pyelonephritis, Kim in UC, antifungal recently started and GN coverage broadened 2. abd pain and distension ; abd xray non specific bowel gas pattern. Constipated vs ileus. 3. Left ureteral stent 4. neurogenic bladder Plan: 1. KUB, continue cefepime and will chgange flucon to PO 2. bowel regimen
[2018-09-30] MEDS: PTO: Anastrozole (NF) 1 MG TAB PO SCH (12:37)
[2018-09-30] MEDS: Acetaminophen TAB* 325 MG PO PRN (16:11)
[2018-09-30] MEDS: Cholecalciferol TAB* 1000 UNITS PO SCH (17:37)
[2018-09-30] MEDS: Senna TAB PO SCH (22:07)
[2018-09-30] MEDS: Atorvastatin* 40 MG TAB PO SCH (22:08)
[2018-10-01 06:17] LABS: ABS Basophils 0.1 10^3/ul (0-0.2); ABS Eosinophils 0.2 10^3/ul (0-0.6); ABS Lymphocytes 1.2 10^3/ul (1.0-4.8); ABS Monocytes 1.2 10^3/ul (0-0.8); ABS Neutrophils 9.5 10^3/ul (1.5-7.7); ABS Nucleated RBC 0 10^3/ul; Hematocrit 33 % (35-47); Hemoglobin 11.1 g/dl (12.0-16.0); Lymphocyte % 9.8 %; Mean Corpuscular HGB Conc 34 g/dl (31-36); Mean Corpuscular Hemoglobin 31 pg (27-31); Mean Corpuscular Volume 91 fL (80-97); Mean Platelet Volume 8.4 fL (7.4-10.4); Nucleated Red Blood Cells % 0; Platelet Count 238 10^3/ul (150-450); Red Blood Count 3.63 10^6/ul (4.00-5.40); Red Cell Distribution Width 13 % (10.5-15); White Blood Count 12.2 10^3/ul (3.5-10.8)
[2018-10-01 06:32] LABS: BUN/Creatinine Ratio 15.6 (8-20); Calcium 8.8 mg/dL (8.6-10.3); EGFR African American 50.3 (>60); EGFR Non-African American 41.6 (>60); Potassium 4.7 mmol/L (3.5-5.0)
--- NOTE | 2018-10-01 09:39 | PN ---
Subjective Date of Service: 10/01/18 Interval History: Ms. Em is sitting up in bed, is at bedside. She initially states she is doing "terribly" but then states that she has been sitting up too long. Has not yet had a bowel movement. She reports some abdominal discomfort but also wants more food then what she is getting (clears). Denies concerns with constipation at home, usually eats a diet of fruits and vegetables and prunes. Denies fever/chills, CP, SOB. Family History: Unchanged from Admission Social History: Unchanged from Admission Past Medical History: Unchanged from Admission Objective Active Medications: Acetaminophen (Tylenol Tab*) 650 mg PO Q6H PRN PRN Reason: pain/fever Last Admin: 09/30/18 16:11 Dose: 650 mg Anastrozole (Arimidex (Nf)) 1 mg PO 1200 [facility] Last Admin: 09/30/18 12:37 Dose: 1 mg Atorvastatin Calcium (Lipitor*) 40 mg PO BEDTIME [facility] Last Admin: 09/30/18 22:08 Dose: 40 mg Baclofen (Lioresal Tab*) 20 mg PO QID [facility] Last Admin: 09/30/18 22:07 Dose: 20 mg Carbamazepine (Tegretol Tab(*)) 200 mg PO BID [facility] Last Admin: 09/30/18 22:08 Dose: 200 mg Cholecalciferol (Vitamin D Tab*) 1,000 units PO QPM [facility] Last Admin: 09/30/18 17:37 Dose: 1,000 units Dextrose (D50w Syringe 50 Ml*) 12.5 gm IV PUSH .FOR FS < 60 - SS PRN PRN Reason: FS < 60 Docusate Sodium (Colace Cap*) 100 mg PO DAILY PRN PRN Reason: CONSTIPATION Fluconazole (Diflucan 100 Mg Tab*) 200 mg PO DAILY [facility] Heparin Sodium (Porcine) (Heparin Vial(*)) 5,000 units SUBCUT Q12HR [facility] Last Admin: 09/30/18 22:05 Dose: 5,000 units Hydralazine HCl (Apresoline Iv*) 5 mg IV SLOW PU Q6H PRN PRN Reason: SBP >160 Last Admin: 09/26/18 19:40 Dose: 5 mg Cefepime HCl (Maxipime 2 Gm In Dextrose Duplex (*)) 2 gm in 50 mls @ 100 mls/ hr IV Q12H [facility] Last Admin: 09/30/18 21:56 Dose: 100 mls/hr Insulin Glargine (Lantus(*)) 30 units SUBCUT Q24H [facility] Last Admin: 09/30/18 09:09 Dose: 30 units Insulin Human Lispro (Humalog*) 0 units SUBCUT ACHS [facility]; Protocol Last Admin: 09/30/18 22:04 Dose: 4 unit Magnesium Hydroxide (Milk Of Magnesia Liq*) 30 ml PO Q6H PRN PRN Reason: CONSTIPATION Metoclopramide HCl (Reglan Iv*) 5 mg IV Q6H PRN PRN Reason: NAUSEA/VOMITING Last Admin: 09/30/18 10:35 Dose: 5 mg Metoprolol Succinate (Toprol Xl Tab*) [facility] [place] Last Admin: 09/30/18 09:09 Dose: 100 mg Multivitamins/Minerals (Theragran/Minerals Tab*) 1 tab PO QAM [facility] Last Admin: 09/30/18 09:09 Dose: 1 tab Nystatin (Nystatin Top Powder*) 1 applic TOPICAL TID PRN PRN Reason: RASH Last Admin: 09/26/18 22:36 Dose: 1 applic Ondansetron HCl (Zofran Inj*) 4 mg IV Q8H PRN PRN Reason: NAUSEA Last Admin: 09/30/18 07:12 Dose: 4 mg Oxybutynin Chloride (Ditropan Tab*) 5 mg PO BID [facility] Last Admin: 09/30/18 22:08 Dose: 5 mg Senna (Senokot Tab*) 1 tab PO BEDTIME [facility] Last Admin: 09/30/18 22:07 Dose: 1 tab Tramadol HCl (Ultram*) 50 mg PO Q12H PRN PRN Reason: PAIN Last Admin: 09/30/18 22:14 Dose: 50 mg Oxygen Devices in Use Now: Nasal Cannula Appearance: Chronically ill appearing female, sitting up in bed, NAD Eyes: No Scleral Icterus, PERRLA Ears/Nose/Mouth/Throat: Clear Oropharnyx, - - lips are dry Neck: NL Appearance and Movements; NL JVP Respiratory: Symmetrical Chest Expansion and Respiratory Effort, Clear to Auscultation Cardiovascular: NL Sounds; No Murmurs; No JVD, RRR Abdominal: - - distended abdomen but soft, BS hyperactive Extremities: No Edema, No Clubbing, Cyanosis Skin: No Rash or Ulcers Neurological: Alert and Oriented x 3 Lines/Tubes/Other Access: Clean, Dry and Intact Wise - some sediment noted Nutrition: Taking PO's Result Diagrams: 10/01/18 05:58 10/01/18 05:58 Additional Lab and Data: Laboratory Last Values WBC 11.8 10^3/ul (3.5-10.8) H 09/24/18 20:13 RBC 4.45 10^6/ul (4.00-5.40) 09/24/18 20:13 Hgb 13.9 g/dl (12.0-16.0) 09/24/18 20:13 Hct 41 % (35-47) 09/24/18 20:13 MCV 92 fL (80-97) 09/24/18 20:13 MCH 31 pg (27-31) 09/24/18 20:13 MCHC 34 g/dl (31-36) 09/24/18 20:13 RDW 13 % (10.5-15) 09/24/18 20:13 Plt Count 189 10^3/ul (150-450) 09/24/18 20:13 MPV 9.7 fL (7.4-10.4) 09/24/18 20:13 Neut % (Auto) 74.9 % 09/24/18 20:13 Lymph % (Auto) 10.4 % 09/24/18 20:13 Lee % (Auto) 12.6 % 09/24/18 20:13 Eos % (Auto) 1.9 % 09/24/18 20:13 Baso % (Auto) 0.2 % 09/24/18 20:13 Absolute Neuts (auto) 8.9 10^3/ul (1.5-7.7) H 09/24/18 20:13 Absolute Lymphs (auto) 1.2 10^3/ul (1.0-4.8) 09/24/18 20:13 Absolute Monos (auto) 1.5 10^3/ul (0-0.8) H 09/24/18 20:13 Absolute Eos (auto) 0.2 10^3/ul (0-0.6) 09/24/18 20:13 Absolute Basos (auto) 0 10^3/ul (0-0.2) 09/24/18 20:13 Absolute Nucleated RBC 0 10^3/ul 09/24/18 20:13 Nucleated RBC % 0.1 09/24/18 20:13 Sodium 134 mmol/L (135-145) L 09/24/18 20:13 Potassium 4.7 mmol/L (3.5-5.0) 09/24/18 20:13 Chloride 95 mmol/L (101-111) L 09/24/18 20:13 Carbon Dioxide 26 mmol/L (22-32) 09/24/18 20:13 Anion Gap 13 mmol/L (2-11) H 09/24/18 20:13 BUN 42 mg/dL (6-24) H 09/24/18 20:13 Creatinine 1.17 mg/dL (0.51-0.95) H 09/24/18 20:13 Est GFR ( Amer) 55.8 (>60) 09/24/18 20:13 Est GFR (Non-Af Amer) 46.1 (>60) 09/24/18 20:13 BUN/Creatinine Ratio 35.9 (8-20) H 09/24/18 20:13 Glucose 369 mg/dL (70-100) H 09/24/18 20:13 Lactic Acid 3.1 mmol/L (0.5-2.0) H* 09/24/18 20:13 Calcium 10.7 mg/dL (8.6-10.3) H 09/24/18 20:13 Total Bilirubin 0.40 mg/dL (0.2-1.0) 09/24/18 20:13 AST 36 U/L (13-39) 09/24/18 20:13 ALT 29 U/L (7-52) 09/24/18 20:13 Alkaline Phosphatase 84 U/L (34-104) 09/24/18 20:13 Troponin I 0.03 ng/mL (<0.04) 09/24/18 20:13 Total Protein 8.4 g/dL (6.4-8.9) 09/24/18 20:13 Albumin 4.1 g/dL (3.2-5.2) 09/24/18 20:13 Globulin 4.3 g/dL (2-4) H 09/24/18 20:13 Albumin/Globulin Ratio 1.0 (1-3) 09/24/18 20:13 TSH 2.99 mcIU/mL (0.34-5.60) 09/24/18 20:13 Urine Color Yellow 09/24/18 20:46 Urine Appearance Turbid 09/24/18 20:46 Urine pH 6.0 (5-9) 09/24/18 20:46 Ur Specific Dalton 1.015 (1.010-1.030) 09/24/18 20:46 Urine Protein 2+(100 mg/dl) (Negative) A 09/24/18 20:46 Urine Ketones Negative (Negative) 09/24/18 20:46 Urine Blood 2+ (Negative) A 09/24/18 20:46 Urine Nitrate Negative (Negative) 09/24/18 20:46 Urine Bilirubin Negative (Negative) 09/24/18 20:46 Urine Urobilinogen Negative (Negative) 09/24/18 20:46 Ur Leukocyte Esterase 3+ (Negative) A 09/24/18 20:46 Urine WBC (Auto) 3+(>20/hpf) (Absent) A 09/24/18 20:46 Urine RBC (Auto) 3+(>10/hpf) (Absent) A 09/24/18 20:46 Urine Bacteria Absent (Absent) 09/24/18 20:46 Urine Yeast Present (Absent) A 09/24/18 20:46 Urine Glucose 3+(>=500 mg/dl) (Negative) A 09/24/18 20:46 Microbiology and Other Data: Microbiology 09/24/18 23:49 Aerobic Blood Culture - Preliminary Blood Venous No Growth Day 1 Anaerobic Blood Culture - Preliminary No Growth Day 1 09/24/18 23:49 Aerobic Blood Culture - Preliminary Blood Venous No Growth Day 1 Anaerobic Blood Culture - Preliminary No Growth Day 1 09/24/18 20:46 Urine Culture - Final Urine Kim Albicans Assess/Plan/Problems-Billing Assessment: This is a 68 year old female with history of MS and neurogenic bladder who underwent ureteral stenting on Wednesday and then presented to the ED on 09/24 with fevers, flank pain, and delirium - Patient Problems (1) Complicated urinary tract infection Code(s): N39.0 - URINARY TRACT INFECTION, SITE NOT SPECIFIED Comment: With recent instrumentation and stent Unclear if infection is secondary to the stent or possible previous infection. Urine obtained from left kidney during cystoscopy on 09/21/18 was positive for kim. Last low grade temp 09/29 evening. CRP decreasing Discussed with Dr. Brewer today, continue Cefepime and fluconazole (now PO). Dr. Eaton following, pt to have repeat cystoscopy and stent removal on 10/03/18. (2) Tachypnea Code(s): R06.82 - TACHYPNEA, NOT ELSEWHERE CLASSIFIED Comment: Resolved Question of small left basilar infiltrate, pt is on cefepime which will cover lung pathogens. (3) Abdominal bloating Code(s): R14.0 - ABDOMINAL DISTENSION (GASEOUS) Comment: KUB negative for obstruction She is tolerating clears, will trial soft diet Last documented BM was small on 09/27 Continue docusate, senna, prn MOM; add one time dose of Miralax (4) DM2 (diabetes mellitus, type 2) Comment: Uncontrolled-likely worsened by infection, HB A1C 9.3. Hold glipizide. Pt had GI intolerance to metformin in the past. Continue FSBG ACHS with lispro SS (SS increased). Lantus started 09/26/18 ( continue to titrate). (5) Multiple sclerosis Code(s): G35 - MULTIPLE SCLEROSIS Comment: Wheelchair bound Continue baclofen. (6) ROSSANA (acute kidney injury) Code(s): N17.9 - ACUTE KIDNEY FAILURE, UNSPECIFIED Comment: Due to ongoing infection. Cr 1.28 today Continue to follow (7) Acute delirium Code(s): R41.0 - DISORIENTATION, UNSPECIFIED Comment: Likely infectious Pt had been lethargic, but continues to improve Not back to baseline (8) Lower back pain Code(s): M54.5 - LOW BACK PAIN Comment: CT of lumbar spine shows no pathology that could be responsible for LBP (9) Neurogenic bladder Code(s): N31.9 - NEUROMUSCULAR DYSFUNCTION OF BLADDER, UNSPECIFIED Comment: Continue wise catheter for now; at home, straight caths 6-8x/day (10) DVT prophylaxis Comment: Heparin subQ (11) Full code status Code(s): Z78.9 - OTHER SPECIFIED HEALTH STATUS Status and Disposition: inpatient. Looks improved today. Plan for return to OR on Wednesday. Continue to work on abdominal discomfort and promoting bowel function. Attending: Beau Howard
[2018-10-01 10:23] LABS: C Reactive Protein 80.51 mg/L (<8.01)
[2018-10-01] MEDS: carBAMazepine TAB(*) 200 MG PO SCH ×2 (10:35→20:28)
[2018-10-01] MEDS: Polyethylene Glycol 3350* 17 GM PACKET PO SCH (10:36)
[2018-10-01] MEDS: Oxybutynin TAB* 5 MG PO SCH ×2 (10:38→20:29)
[2018-10-01] MEDS: Fluconazole 100 MG TAB* TAB PO SCH (10:39)
[2018-10-01] MEDS: Baclofen TAB* 20 MG PO SCH ×4 (10:40→20:27)
[2018-10-01] MEDS: Multivitamins/Minerals TAB PO SCH (10:40)
[2018-10-01] MEDS: Heparin VIAL(*) 5000 UNITS/ML VIAL (FIVE THOUSAND) SUBCUT SCH ×2 (10:41→20:32)
[2018-10-01] MEDS: Metoprolol Succinate XL TAB* 100 MG PO SCH (10:41)
[2018-10-01] MEDS: Insulin GLARGINE(*) 1 UNITS UNIT SUBCUT SCH (10:42)
[2018-10-01] MEDS: Cefepime 2 GM in Dextrose(*) 2 GM/50 ML BAG IV SCH ×2 (10:43→20:33)
[2018-10-01] MEDS: Insulin LISPRO* 1 UNITS UNIT SUBCUT SCH ×5 (10:52→20:31)
[2018-10-01] MEDS ORDERED: Insulin LISPRO* 1 UNITS UNIT SUBCUT SCH (12:17)
[2018-10-01] MEDS: Acetaminophen TAB* 325 MG PO PRN (12:41)
[2018-10-01] MEDS: PTO: Anastrozole (NF) 1 MG TAB PO SCH (12:42)
[2018-10-01] MEDS: Cholecalciferol TAB* 1000 UNITS PO SCH (18:07)
[2018-10-01] MEDS: Magnesium Hydroxide LIQ* 30 ML UDC PO PRN (18:13)
[2018-10-01] MEDS: Docusate CAP* 100 MG PO PRN (18:13)
[2018-10-01] MEDS: Atorvastatin* 40 MG TAB PO SCH (20:28)
[2018-10-01] MEDS: traMADol TAB* 50 MG PO PRN (20:29)
[2018-10-01] MEDS: Senna TAB PO SCH (20:30)
[2018-10-02] MEDS: Acetaminophen TAB* 325 MG PO PRN (03:00)
[2018-10-02] MEDS: Ondansetron INJ* 2 MG/ML VIAL IV PRN (05:17)
[2018-10-02] MEDS: Polyethylene Glycol 3350* 17 GM PACKET PO SCH (08:12)
[2018-10-02] MEDS: Insulin LISPRO* 1 UNITS UNIT SUBCUT SCH ×4 (08:13→21:12)
[2018-10-02] MEDS: Heparin VIAL(*) 5000 UNITS/ML VIAL (FIVE THOUSAND) SUBCUT SCH ×2 (08:13→21:12)
[2018-10-02] MEDS: Fluconazole 100 MG TAB* TAB PO SCH (08:13)
[2018-10-02] MEDS: Baclofen TAB* 20 MG PO SCH ×4 (08:13→21:13)
[2018-10-02] MEDS: Multivitamins/Minerals TAB PO SCH (08:13)
[2018-10-02] MEDS: carBAMazepine TAB(*) 200 MG PO SCH ×2 (08:13→21:13)
[2018-10-02] MEDS: Oxybutynin TAB* 5 MG PO SCH ×2 (08:13→21:13)
[2018-10-02] MEDS: Cefepime 2 GM in Dextrose(*) 2 GM/50 ML BAG IV SCH ×2 (08:14→21:14)
[2018-10-02] MEDS: Metoprolol Succinate XL TAB* 100 MG PO SCH (08:15)
[2018-10-02] MEDS ORDERED: Insulin GLARGINE(*) 1 UNITS UNIT SUBCUT SCH (09:00)
[2018-10-02] MEDS: traMADol TAB* 50 MG PO PRN (11:11)
[2018-10-02] MEDS: PTO: Anastrozole (NF) 1 MG TAB PO SCH (11:49)
--- NOTE | 2018-10-02 11:51 | PN ---
Subjective Date of Service: 10/02/18 Interval History: Patient's reports she is still confused. He is concerned she is in the hospital for 1 wk and not getting better. She is eating some, unclear when last BM was. Denies pain. Feels very weak due to MS. At home at baseline can transfer bed to chair w/ 's assist. Family History: Unchanged from Admission Social History: Unchanged from Admission Past Medical History: Unchanged from Admission Objective Active Medications: Acetaminophen (Tylenol Tab*) 650 mg PO Q6H PRN PRN Reason: pain/fever Last Admin: 10/02/18 03:00 Dose: 650 mg Anastrozole (Arimidex (Nf)) 1 mg PO 1200 [facility] Last Admin: 10/01/18 12:42 Dose: 1 mg Atorvastatin Calcium (Lipitor*) 40 mg PO BEDTIME [facility] Last Admin: 10/01/18 20:28 Dose: 40 mg Baclofen (Lioresal Tab*) 20 mg PO QID [facility] Last Admin: 10/02/18 08:13 Dose: 20 mg Carbamazepine (Tegretol Tab(*)) 200 mg PO BID [facility] Last Admin: 10/02/18 08:13 Dose: 200 mg Cholecalciferol (Vitamin D Tab*) 1,000 units PO QPM [facility] Last Admin: 10/01/18 18:07 Dose: 1,000 units Dextrose (D50w Syringe 50 Ml*) 12.5 gm IV PUSH .FOR FS < 60 - SS PRN PRN Reason: FS < 60 Docusate Sodium (Colace Cap*) 100 mg PO DAILY PRN PRN Reason: CONSTIPATION Last Admin: 10/01/18 18:13 Dose: 100 mg Fluconazole (Diflucan 100 Mg Tab*) 200 mg PO DAILY [facility] Last Admin: 10/02/18 08:13 Dose: 200 mg Heparin Sodium (Porcine) (Heparin Vial(*)) 5,000 units SUBCUT Q12HR [facility] Last Admin: 10/02/18 08:13 Dose: 5,000 units Hydralazine HCl (Apresoline Iv*) 5 mg IV SLOW PU Q6H PRN PRN Reason: SBP >160 Last Admin: 09/26/18 19:40 Dose: 5 mg Cefepime HCl (Maxipime 2 Gm In Dextrose Duplex (*)) 2 gm in 50 mls @ 100 mls/ hr IV Q12H [facility] Last Admin: 10/02/18 08:14 Dose: 100 mls/hr Insulin Glargine (Lantus(*)) 35 units SUBCUT Q24H [facility] Insulin Human Lispro (Humalog*) 0 units SUBCUT 0730,1130,1630,2100 [facility]; Protocol Last Admin: 10/02/18 08:13 Dose: 6 units Magnesium Hydroxide (Milk Of Magnesia Liq*) 30 ml PO Q6H PRN PRN Reason: CONSTIPATION Last Admin: 10/01/18 18:13 Dose: 30 ml Metoclopramide HCl (Reglan Iv*) 5 mg IV Q6H PRN PRN Reason: NAUSEA/VOMITING Last Admin: 09/30/18 10:35 Dose: 5 mg Metoprolol Succinate (Toprol Xl Tab*) 100 mg PO QAM [facility] Last Admin: 10/02/18 08:15 Dose: Not Given Multivitamins/Minerals (Theragran/Minerals Tab*) 1 tab PO QAM [facility] Last Admin: 10/02/18 08:13 Dose: 1 tab Nystatin (Nystatin Top Powder*) 1 applic TOPICAL TID PRN PRN Reason: RASH Last Admin: 09/26/18 22:36 Dose: 1 applic Ondansetron HCl (Zofran Inj*) 4 mg IV Q8H PRN PRN Reason: NAUSEA Last Admin: 10/02/18 05:17 Dose: 4 mg Oxybutynin Chloride (Ditropan Tab*) 5 mg PO BID [facility] Last Admin: 10/02/18 08:13 Dose: 5 mg Polyethylene Glycol/Electrolytes (Miralax*) 17 gm PO DAILY [facility] Last Admin: 10/02/18 08:12 Dose: 17 gm Senna (Senokot Tab*) 1 tab PO BEDTIME [facility] Last Admin: 10/01/18 20:30 Dose: 1 tab Tramadol HCl (Ultram*) 50 mg PO Q12H PRN PRN Reason: PAIN Last Admin: 10/02/18 11:11 Dose: 50 mg Vital Signs - 8 hr 10/02/18 10/02/18 10/02/18 07:51 08:14 08:26 Temperature 36.3 C Pulse Rate 74 Respiratory 24 18 Rate Blood Pressure 102/58 104/62 (mmHg) O2 Sat by Pulse 96 Oximetry 10/02/18 10/02/18 11:09 11:11 Temperature 37.1 C Pulse Rate 77 Respiratory 16 18 Rate Blood Pressure 107/52 (mmHg) O2 Sat by Pulse 94 Oximetry Oxygen Devices in Use Now: Nasal Cannula Appearance: fatigued, obese, lying in bed Ears/Nose/Mouth/Throat: Clear Oropharnyx Neck: No Thyroid Enlargement, Masses Respiratory: Symmetrical Chest Expansion and Respiratory Effort, Clear to Auscultation Cardiovascular: NL Sounds; No Murmurs; No JVD Abdominal: NL Sounds; No Tenderness; No Distention, No Hepatosplenomegaly Lymphatic: No Cervical Adenopathy Neurological: Alert and Oriented x 3 Lines/Tubes/Other Access: Clean, Dry and Intact Peripheral IV Nutrition: Taking PO's Result Diagrams: 10/01/18 05:58 10/01/18 05:58 Additional Lab and Data: Laboratory Tests 10/01/18 10/01/18 10/01/18 05:58 07:49 11:39 POC Glucose (mg/dL) 251 H 345 H C-Reactive Protein 80.51 H 10/01/18 10/01/18 16:12 20:11 POC Glucose (mg/dL) 289 H 299 H C-Reactive Protein Microbiology and Other Data: Microbiology 09/27/18 11:29 Nasal Influenza Types A,B Antigen - Final Specimen received for Influenza A/B Molecular testing 09/27/18 10:11 Urine Urine Culture - Final Kim Albicans 09/27/18 09:24 Blood Venous Aerobic Blood Culture - Final 09/27/18 09:24 Blood Venous Anaerobic Blood Culture - Final No Growth Day 5 No Growth Day 5 09/24/18 23:49 Blood Venous Aerobic Blood Culture - Final 09/24/18 23:49 Blood Venous Anaerobic Blood Culture - Final No Growth Day 5 No Growth Day 5 09/24/18 23:49 Blood Venous Aerobic Blood Culture - Final 09/24/18 23:49 Blood Venous Anaerobic Blood Culture - Final No Growth Day 5 No Growth Day 5 09/24/18 20:46 Urine Urine Culture - Final Kim Albicans Assess/Plan/Problems-Billing Assessment: This is a 68 year old female with history of MS and neurogenic bladder who underwent ureteral stenting on Wednesday and then presented to the ED on 09/24 with fevers, flank pain, and delirium - Patient Problems (1) Severe sepsis Current Visit: No Status: Acute Priority: Medium Code(s): A41.9 - SEPSIS, UNSPECIFIED ORGANISM; R65.20 - SEVERE SEPSIS WITHOUT SEPTIC SHOCK SNOMED Code( s): 65433719 Comment: -The patient was severly septic on admission secondary to UTI. Now resolved. WBC count essentially stable. -treating for gram negatives and yeast, continue cefipime and fluconazole. -ID consult appreciated (2) Neurogenic bladder Current Visit: Yes Status: Chronic Code(s): N31.9 - NEUROMUSCULAR DYSFUNCTION OF BLADDER, UNSPECIFIED SNOMED Code(s): 652652101 Comment: -patient has LT ureteral stent placed 09/21 for hydronephrosis -to return to OR tomorrow for stent replacement or removal -wise cath for now -will go home w/ intermittent cath 6x/day (3) DM2 (diabetes mellitus, type 2) Current Visit: Yes Status: Chronic Comment: - Uncontrolled-likely worsened by infection, - Lantus dose increased due to consistently high sugar - Continue FSBG ACHS with lispro SS (SS increased). (4) Multiple sclerosis Current Visit: Yes Status: Chronic Priority: Medium Code(s): G35 - MULTIPLE SCLEROSIS SNOMED Code(s): 51632801 Comment: -MS likely exacerbated by acute infection -will discuss IV steroids with Dr. Nur. Status and Disposition: inpatient. Plan for return to OR on Wednesday.
[2018-10-02] MEDS: Cholecalciferol TAB* 1000 UNITS PO SCH (17:21)
[2018-10-02] MEDS: Atorvastatin* 40 MG TAB PO SCH (21:13)
[2018-10-02] MEDS: Senna TAB PO SCH (21:13)
[2018-10-02] MEDS ORDERED: Buffered Lidocaine 1% SYRIN* 1 ML/SYRINGE INTRADERM ONE (22:27)
[2018-10-02] MEDS ORDERED: NS 0.9% 1000 ML** 1,000 ML IV SCH (22:30)
[2018-10-03 06:48] LABS: Activated Partial Thrombo Time 29.4 seconds (26.0-36.3); INR 1.04 (0.77-1.02)
[2018-10-03 06:55] LABS: Calcium 9.3 mg/dL (8.6-10.3); Potassium 4.8 mmol/L (3.5-5.0)
[2018-10-03 07:01] LABS: BUN/Creatinine Ratio 22.8 (8-20); C Reactive Protein 51.26 mg/L (<8.01); EGFR African American 52.7 (>60); EGFR Non-African American 43.6 (>60)
[2018-10-03] MEDS ORDERED: Iohexol 180 (CONTRAST) 10 ML SDV IV ONE (07:11)
[2018-10-03] MEDS ORDERED: Famotidine IV* 10 MG/ML 2 ML (20 mg) ONE (07:33)
[2018-10-03] MEDS ORDERED: fentaNYL* 50 MCG/ML 2 ML VIAL (100 MCG VIAL) ONE (07:42)
[2018-10-03] MEDS ORDERED: Propofol* 10 MG/ML 20 ML BTL ONE (07:55)
[2018-10-03] MEDS: Insulin LISPRO* 1 UNITS UNIT SUBCUT SCH ×4 (08:04→21:06)
[2018-10-03] MEDS ORDERED: Ondansetron INJ* 2 MG/ML VIAL ONE (08:19)
[2018-10-03] MEDS ORDERED: Phenylephrine IV* 40 MCG/ML 10 ML SYRINGE ONE (08:30)
[2018-10-03] MEDS ORDERED: Naloxone* 0.4 MG/ML 1 ML VIAL IV PRN (08:35)
[2018-10-03] MEDS ORDERED: Ondansetron INJ* 2 MG/ML VIAL IV PRN (08:35)
[2018-10-03] MEDS ORDERED: fentaNYL* 50 MCG/ML 2 ML VIAL (100 MCG VIAL) IV PRN (08:35)
[2018-10-03] MEDS: Cefepime 2 GM in Dextrose(*) 2 GM/50 ML BAG IV SCH ×2 (10:06→21:01)
[2018-10-03] MEDS: Polyethylene Glycol 3350* 17 GM PACKET PO SCH (10:06)
[2018-10-03] MEDS: Metoprolol Succinate XL TAB* 100 MG PO SCH (10:07)
[2018-10-03] MEDS: carBAMazepine TAB(*) 200 MG PO SCH ×2 (10:07→21:06)
[2018-10-03] MEDS: Multivitamins/Minerals TAB PO SCH (10:07)
[2018-10-03] MEDS: Oxybutynin TAB* 5 MG PO SCH ×2 (10:07→21:06)
[2018-10-03] MEDS: Baclofen TAB* 20 MG PO SCH ×4 (10:07→21:06)
[2018-10-03] MEDS: Fluconazole 100 MG TAB* TAB PO SCH (10:07)
[2018-10-03] MEDS: Insulin GLARGINE(*) 1 UNITS UNIT SUBCUT SCH (10:07)
[2018-10-03] MEDS: Heparin VIAL(*) 5000 UNITS/ML VIAL (FIVE THOUSAND) SUBCUT SCH ×2 (10:08→21:06)
--- NOTE | 2018-10-03 11:51 | OP ---
OPERATIVE REPORT: DATE OF OPERATION: 10/03/18 DATE OF : 52 SURGEON: Dr. Eaton. ANESTHESIOLOGIST: Dr. Koehler. ANESTHESIA: General. PRE-OP DIAGNOSES: 1. Left hydronephrosis. 2. Calculus, left proximal ureter. POST-OP DIAGNOSES: 1. Left hydronephrosis. 2. Calculus, left proximal ureter. OPERATIVE PROCEDURE: 1. Cystoscopy, left stent removal. 2. Left retrograde pyelogram. 3. Left ureteroscopy and pyeloscopy. 4. Left stent insertion. INDICATIONS: Lucretia Em is a 68-year-old lady with history of recurrent renal calculi and a neurogeni c bladder. She was recently evaluated for left hydronephrosis. COMPLICATIONS: None. POSTOPERATIVE CONDITION: Stable. STENT USED: 8.5-Emirati 28 cm silicone stent, left ureter. OPERATIVE FINDINGS: Extensive amount of likely candidal debris noted in left ureter and left renal p dave with left hydronephrosis. POSTOPERATIVE CONDITION: Stable. DESCRIPTION OF PROCEDURE: After induction of general anesthesia, the patient was placed in dorsal li thotomy position. Sequential compression devices were in place and functioning. Initial evaluation revealed some cloudy residual urine in the bladder. The previously placed left stent was removed. R etrograde pyelogram revealed left hydronephrosis. A 6-Emirati semirigid ureteroscope was introduced a nd advanced under direct vision into the left ureter. The entire mid and proximal left ureter lumen was filled with what appeared to be small accumulated balls of likely candidal material. A lot of th brii were removed and flushed out using a 3- pronged grasper. The ureteroscope was carefully advanced into the renal pelvis. Once again in the renal pelvis, a lot of this cloudy debris was noted and vis ibility was impaired because of this, so I could not visualize the stone. I suspect it could be enve loped in one of these pieces of debris. At this point, I went ahead and placed an 8.5-Emirati 28 cm s ilicone stent into the left ureter in an effort to better drain the left kidney. Once the stent was placed, I could see urine and also this cloudy material freely draining from the distal end of the st ent. A 20-Emirati Mcwilliams was placed for bladder drainage. My plan is to obtain a postoperative x-ray and then to decide whether she would be a candidate for lithotripsy depending on the eventual locatio n of the calculus. The patient tolerated the procedure satisfactorily and was transferred back to the recovery area in s table condition. [id number]/[facility] #: [id number]
[2018-10-03] MEDS: Lactated Ringers 1000 ML Bag* 1,000 ML IV SCH (12:48)
[2018-10-03] MEDS: PTO: Anastrozole (NF) 1 MG TAB PO SCH (12:48)
--- NOTE | 2018-10-03 14:31 | PN ---
Subjective Date of Service: 10/03/18 Interval History: Patient more alert today. No new complaints. Had LT ureter stent changed out today, with larger stent. Ate lunch well. Family History: Unchanged from Admission Social History: Unchanged from Admission Past Medical History: Unchanged from Admission Objective Active Medications: Acetaminophen (Tylenol Tab*) 650 mg PO Q6H PRN PRN Reason: pain/fever Last Admin: 10/02/18 03:00 Dose: 650 mg Anastrozole (Arimidex (Nf)) 1 mg PO 1200 [facility] Last Admin: 10/03/18 12:48 Dose: 1 mg Atorvastatin Calcium (Lipitor*) 40 mg PO BEDTIME [facility] Last Admin: 10/02/18 21:13 Dose: 40 mg Baclofen (Lioresal Tab*) 20 mg PO QID [facility] Last Admin: 10/03/18 12:48 Dose: 20 mg Carbamazepine (Tegretol Tab(*)) 200 mg PO BID [facility] Last Admin: 10/03/18 10:07 Dose: 200 mg Cholecalciferol (Vitamin D Tab*) 1,000 units PO QPM [facility] Last Admin: 10/02/18 17:21 Dose: 1,000 units Dextrose (D50w Syringe 50 Ml*) 12.5 gm IV PUSH .FOR FS < 60 - SS PRN PRN Reason: FS < 60 Docusate Sodium (Colace Cap*) 100 mg PO DAILY PRN PRN Reason: CONSTIPATION Last Admin: 10/01/18 18:13 Dose: 100 mg Fentanyl Citrate (Fentanyl*) 25 mcg IV Q5M PRN PRN Reason: PAIN - MODERATE Fluconazole (Diflucan 100 Mg Tab*) 200 mg PO DAILY [facility] Last Admin: 10/03/18 10:07 Dose: 200 mg Heparin Sodium (Porcine) (Heparin Vial(*)) 5,000 units SUBCUT Q12HR [facility] Last Admin: 10/03/18 10:08 Dose: Not Given Hydralazine HCl (Apresoline Iv*) 5 mg IV SLOW PU Q6H PRN PRN Reason: SBP >160 Last Admin: 09/26/18 19:40 Dose: 5 mg Cefepime HCl (Maxipime 2 Gm In Dextrose Duplex (*)) 2 gm in 50 mls @ 100 mls/ hr IV Q12H [facility] Last Admin: 10/03/18 10:06 Dose: 100 mls/hr Lactated Ringer's (Lactated Ringers 1000 Ml Bag*) 1,000 mls @ 125 mls/hr IV PER RATE [facility] Last Admin: 10/03/18 12:48 Dose: 125 mls/hr Insulin Glargine (Lantus(*)) 50 units SUBCUT Q24H [facility] Last Admin: 10/03/18 10:07 Dose: 50 units Insulin Human Lispro (Humalog*) 0 units SUBCUT 0730,1130,1630,2100 [facility]; Protocol Last Admin: 10/03/18 12:48 Dose: 6 units Magnesium Hydroxide (Milk Of Magnesia Liq*) 30 ml PO Q6H PRN PRN Reason: CONSTIPATION Last Admin: 10/01/18 18:13 Dose: 30 ml Metoclopramide HCl (Reglan Iv*) 5 mg IV Q6H PRN PRN Reason: NAUSEA/VOMITING Last Admin: 09/30/18 10:35 Dose: 5 mg Metoprolol Succinate (Toprol Xl Tab*) 100 mg PO QAM [facility] Last Admin: 10/03/18 10:07 Dose: 100 mg Multivitamins/Minerals (Theragran/Minerals Tab*) 1 tab PO QAM [facility] Last Admin: 10/03/18 10:07 Dose: 1 tab Naloxone HCl (Narcan*) 0.08 mg IV Q2M PRN PRN Reason: severe induced resp depression Nystatin (Nystatin Top Powder*) 1 applic TOPICAL TID PRN PRN Reason: RASH Last Admin: 09/26/18 22:36 Dose: 1 applic Ondansetron HCl (Zofran Inj*) 4 mg IV Q8H PRN PRN Reason: NAUSEA Last Admin: 10/02/18 05:17 Dose: 4 mg Ondansetron HCl (Zofran Inj*) 2 mg IV ONCE PRN PRN Reason: NAUSEA/VOMITING Oxybutynin Chloride (Ditropan Tab*) 5 mg PO BID [facility] Last Admin: 10/03/18 10:07 Dose: 5 mg Polyethylene Glycol/Electrolytes (Miralax*) 17 gm PO DAILY [facility] Last Admin: 10/03/18 10:06 Dose: 17 gm Senna (Senokot Tab*) 1 tab PO BEDTIME [facility] Last Admin: 10/02/18 21:13 Dose: 1 tab Tramadol HCl (Ultram*) 50 mg PO Q12H PRN PRN Reason: PAIN Last Admin: 10/02/18 11:11 Dose: 50 mg Vital Signs - 8 hr 10/03/18 10/03/18 10/03/18 06:56 08:49 08:50 Temperature 37.5 C 36.3 C Pulse Rate 78 74 73 Respiratory 12 Rate Blood Pressure 114/66 131/79 (mmHg) O2 Sat by Pulse 95 97 96 Oximetry 10/03/18 10/03/18 10/03/18 08:55 09:00 09:05 Temperature Pulse Rate 75 75 77 Respiratory 10 12 18 Rate Blood Pressure 133/85 135/79 132/86 (mmHg) O2 Sat by Pulse 95 94 97 Oximetry 10/03/18 10/03/18 10/03/18 09:15 09:30 09:47 Temperature 36.3 C 36.3 C Pulse Rate 73 67 68 Respiratory 14 16 14 Rate Blood Pressure 130/74 135/79 131/77 (mmHg) O2 Sat by Pulse 95 96 97 Oximetry Oxygen Devices in Use Now: Nasal Cannula Appearance: alert, confused Eyes: No Scleral Icterus Neck: Trachea Midline Respiratory: Symmetrical Chest Expansion and Respiratory Effort, Clear to Auscultation Cardiovascular: NL Sounds; No Murmurs; No JVD, RRR Abdominal: NL Sounds; No Tenderness; No Distention, No Hepatosplenomegaly Neurological: - - generalized weakness Lines/Tubes/Other Access: Clean, Dry and Intact Peripheral IV Nutrition: Taking PO's Result Diagrams: 10/01/18 05:58 10/03/18 06:10 Assess/Plan/Problems-Billing Assessment: This is a 68 year old female with history of MS and neurogenic bladder who underwent ureteral stenting on Wednesday and then presented to the ED on 09/24 with fevers, flank pain, and delirium - Patient Problems (1) Severe sepsis Current Visit: No Status: Acute Priority: Medium Code(s): A41.9 - SEPSIS, UNSPECIFIED ORGANISM; R65.20 - SEVERE SEPSIS WITHOUT SEPTIC SHOCK SNOMED Code( s): 57544361 Comment: -The patient was severly septic on admission secondary to UTI. Now resolved. WBC count essentially stable. -treating for gram negatives and yeast, continue cefipime and fluconazole. -discussed with Dr. Brewer, he will revisit tomorrow (2) Neurogenic bladder Current Visit: Yes Status: Chronic Code(s): N31.9 - NEUROMUSCULAR DYSFUNCTION OF BLADDER, UNSPECIFIED SNOMED Code(s): 178659771 Comment: - patient has LT ureteral stent placed 09/21 for hydronephrosis, changed out today - wise cath for now - will go home w/ intermittent cath 6x/day (3) DM2 (diabetes mellitus, type 2) Current Visit: Yes Status: Chronic Comment: - Uncontrolled-likely worsened by infection, - control improved w/ increased lantus - Continue FSBG ACHS with lispro SS (SS increased). (4) Multiple sclerosis Current Visit: Yes Status: Chronic Priority: Medium Code(s): G35 - MULTIPLE SCLEROSIS SNOMED Code(s): 62017340 Comment: -MS likely exacerbated by acute infection -discussed IV steroids with Dr. Nur, he was not in favor Status and Disposition: inpatient. Will discuss discharge criteria w/ Dr. Eaton.
[2018-10-03] MEDS: Cholecalciferol TAB* 1000 UNITS PO SCH (17:43)
[2018-10-03] MEDS: traMADol TAB* 50 MG PO PRN (21:05)
[2018-10-03] MEDS: Atorvastatin* 40 MG TAB PO SCH (21:06)
[2018-10-03] MEDS: Senna TAB PO SCH (21:06)
[2018-10-03] MEDS: Magnesium Hydroxide LIQ* 30 ML UDC PO PRN (21:20)
[2018-10-04] MEDS: Lactated Ringers 1000 ML Bag* 1,000 ML IV SCH ×2 (01:10→09:15)
[2018-10-04] MEDS: Morphine INJ* 2 MG/ML 1 ML SYRINGE (TWO MG - NEW SYRINGE VERSION) IV PRN (03:00)
[2018-10-04] MEDS: Acetaminophen TAB* 325 MG PO PRN ×2 (03:30→16:27)
[2018-10-04 06:00] LABS: ABS Basophils 0 10^3/ul (0-0.2); ABS Eosinophils 0.2 10^3/ul (0-0.6); ABS Lymphocytes 1.3 10^3/ul (1.0-4.8); ABS Monocytes 1.3 10^3/ul (0-0.8); ABS Neutrophils 14.3 10^3/ul (1.5-7.7); ABS Nucleated RBC 0 10^3/ul; Eosinophil % 0.9 %; Hematocrit 30 % (35-47); Lymphocyte % 7.7 %; Mean Corpuscular HGB Conc 34 g/dl (31-36); Mean Corpuscular Hemoglobin 31 pg (27-31); Mean Corpuscular Volume 92 fL (80-97); Mean Platelet Volume 8.2 fL (7.4-10.4); Nucleated Red Blood Cells % 0; Platelet Count 269 10^3/ul (150-450); Red Blood Count 3.22 10^6/ul (4.00-5.40); Red Cell Distribution Width 13 % (10.5-15); White Blood Count 17.2 10^3/ul (3.5-10.8)
[2018-10-04 06:17] LABS: BUN/Creatinine Ratio 22.6 (8-20); Calcium 8.9 mg/dL (8.6-10.3); EGFR African American 62.6 (>60); EGFR Non-African American 51.7 (>60); Magnesium 1.7 mg/dL (1.9-2.7); Potassium 4.1 mmol/L (3.5-5.0)
[2018-10-04] MEDS: Polyethylene Glycol 3350* 17 GM PACKET PO SCH (09:05)
[2018-10-04] MEDS: Cefepime 2 GM in Dextrose(*) 2 GM/50 ML BAG IV SCH ×2 (09:05→21:48)
[2018-10-04] MEDS: Fluconazole 100 MG TAB* TAB PO SCH (09:08)
[2018-10-04] MEDS: Baclofen TAB* 20 MG PO SCH ×4 (09:08→21:48)
[2018-10-04] MEDS: Magnesium Hydroxide LIQ* 30 ML UDC PO PRN (09:08)
[2018-10-04] MEDS: Heparin VIAL(*) 5000 UNITS/ML VIAL (FIVE THOUSAND) SUBCUT SCH ×2 (09:08→21:49)
[2018-10-04] MEDS: Insulin GLARGINE(*) 1 UNITS UNIT SUBCUT SCH (09:08)
[2018-10-04] MEDS: Insulin LISPRO* 1 UNITS UNIT SUBCUT SCH ×4 (09:08→21:49)
[2018-10-04] MEDS: Oxybutynin TAB* 5 MG PO SCH ×2 (09:09→21:49)
[2018-10-04] MEDS: carBAMazepine TAB(*) 200 MG PO SCH ×2 (09:09→21:48)
[2018-10-04] MEDS: Multivitamins/Minerals TAB PO SCH (09:09)
[2018-10-04] MEDS: Metoprolol Succinate XL TAB* 100 MG PO SCH (09:09)
[2018-10-04] MEDS: Docusate CAP* 100 MG PO PRN (09:09)
[2018-10-04] MEDS: PTO: Anastrozole (NF) 1 MG TAB PO SCH (12:18)
[2018-10-04] MEDS: Ondansetron INJ* 2 MG/ML VIAL IV PRN (12:18)
--- NOTE | 2018-10-04 16:01 | PN ---
Subjective Date of Service: 10/04/18 Interval History: Had LT ureteral stent changed out yesterday. Dr. Lee saw today, changed to IV fluconazole. at bedside. Concerned patient sleeping a lot. No BM in several days. Denies need for bowel regimen at home Has not been OOB for 1 week. Family History: Unchanged from Admission Social History: Unchanged from Admission Past Medical History: Unchanged from Admission Objective Active Medications: Acetaminophen (Tylenol Tab*) 650 mg PO Q6H PRN PRN Reason: pain/fever Last Admin: 10/04/18 03:30 Dose: 650 mg Anastrozole (Arimidex (Nf)) 1 mg PO 1200 [facility] Last Admin: 10/04/18 12:18 Dose: 1 mg Atorvastatin Calcium (Lipitor*) 40 mg PO BEDTIME [facility] Last Admin: 10/03/18 21:06 Dose: 40 mg Baclofen (Lioresal Tab*) 20 mg PO QID [facility] Last Admin: 10/04/18 12:18 Dose: 20 mg Carbamazepine (Tegretol Tab(*)) 200 mg PO BID [facility] Last Admin: 10/04/18 09:09 Dose: 200 mg Cholecalciferol (Vitamin D Tab*) 1,000 units PO QPM [facility] Last Admin: 10/03/18 17:43 Dose: 1,000 units Dextrose (D50w Syringe 50 Ml*) 12.5 gm IV PUSH .FOR FS < 60 - SS PRN PRN Reason: FS < 60 Docusate Sodium (Colace Cap*) 100 mg PO DAILY PRN PRN Reason: CONSTIPATION Last Admin: 10/04/18 09:09 Dose: 100 mg Heparin Sodium (Porcine) (Heparin Vial(*)) 5,000 units SUBCUT Q12HR [facility] Last Admin: 10/04/18 09:08 Dose: 5,000 units Hydralazine HCl (Apresoline Iv*) 5 mg IV SLOW PU Q6H PRN PRN Reason: SBP >160 Last Admin: 09/26/18 19:40 Dose: 5 mg Cefepime HCl (Maxipime 2 Gm In Dextrose Duplex (*)) 2 gm in 50 mls @ 100 mls/ hr IV Q12H [facility] Last Admin: 10/04/18 09:05 Dose: 100 mls/hr Lactated Ringer's (Lactated Ringers 1000 Ml Bag*) 1,000 mls @ 125 mls/hr IV PER RATE [facility] Last Admin: 10/04/18 09:15 Dose: 125 mls/hr Fluconazole/Sodium Chloride (Diflucan 400 Mg Ivpremix(*)) 400 mg in 200 mls @ 100 mls/hr IVPB Q24H [facility] Insulin Glargine (Lantus(*)) 50 units SUBCUT Q24H [facility] Last Admin: 10/04/18 09:08 Dose: 50 units Insulin Human Lispro (Humalog*) 0 units SUBCUT 0730,1130,1630,2100 [facility]; Protocol Last Admin: 10/04/18 12:18 Dose: 15 units Magnesium Oxide (Magox 400 Tab*) 400 mg PO DAILY [facility] Metoclopramide HCl (Reglan Iv*) 5 mg IV Q6H PRN PRN Reason: NAUSEA/VOMITING Last Admin: 09/30/18 10:35 Dose: 5 mg Metoprolol Succinate (Toprol Xl Tab*) 100 mg PO QAM [facility] Last Admin: 10/04/18 09:09 Dose: Not Given Morphine Sulfate (Morphine Inj ((Syringe))*) 2 mg IV Q4H PRN PRN Reason: PAIN - MILD Last Admin: 10/04/18 03:00 Dose: 2 mg Multivitamins/Minerals (Theragran/Minerals Tab*) 1 tab PO QAM [facility] Last Admin: 10/04/18 09:09 Dose: 1 tab Nystatin (Nystatin Top Powder*) 1 applic TOPICAL TID PRN PRN Reason: RASH Last Admin: 09/26/18 22:36 Dose: 1 applic Ondansetron HCl (Zofran Inj*) 4 mg IV Q8H PRN PRN Reason: NAUSEA Last Admin: 10/04/18 12:18 Dose: 4 mg Oxybutynin Chloride (Ditropan Tab*) 5 mg PO BID [facility] Last Admin: 10/04/18 09:09 Dose: 5 mg Polyethylene Glycol/Electrolytes (Miralax*) 17 gm PO DAILY [facility] Last Admin: 10/04/18 09:05 Dose: 17 gm Senna (Senokot Tab*) 1 tab PO BEDTIME [facility] Last Admin: 10/03/18 21:06 Dose: 1 tab Tramadol HCl (Ultram*) 50 mg PO Q12H PRN PRN Reason: PAIN Last Admin: 10/03/18 21:05 Dose: 50 mg Vital Signs - 8 hr 10/04/18 10/04/18 08:00 11:23 Temperature 37.4 C Pulse Rate 99 Respiratory 24 17 Rate Blood Pressure 110/53 (mmHg) O2 Sat by Pulse 92 96 Oximetry Oxygen Devices in Use Now: Nasal Cannula Appearance: sleepy, no distress Neck: Trachea Midline Respiratory: Clear to Auscultation Cardiovascular: NL Sounds; No Murmurs; No JVD, RRR Abdominal: NL Sounds; No Tenderness; No Distention, No Hepatosplenomegaly Lymphatic: No Cervical Adenopathy Lines/Tubes/Other Access: Clean, Dry and Intact Peripheral IV Nutrition: Taking PO's Result Diagrams: 10/04/18 05:29 10/04/18 05:29 Assess/Plan/Problems-Billing Assessment: This is a 68 year old female with history of MS and neurogenic bladder who underwent ureteral stenting on Wednesday and then presented to the ED on 09/24 with fevers, flank pain, and delirium - Patient Problems (1) Severe sepsis Current Visit: No Status: Acute Priority: Medium Code(s): A41.9 - SEPSIS, UNSPECIFIED ORGANISM; R65.20 - SEVERE SEPSIS WITHOUT SEPTIC SHOCK SNOMED Code( s): 07839284 Comment: -The patient was severly septic on admission secondary to UTI. Thought to be resolved. Now WBC count elevated. -treating for gram negatives and yeast, continue cefipime and fluconazole. -discussed with Dr. Lee, he saw today, switched to IV fluconazole (2) Neurogenic bladder Current Visit: Yes Status: Chronic Code(s): N31.9 - NEUROMUSCULAR DYSFUNCTION OF BLADDER, UNSPECIFIED SNOMED Code(s): 635456540 Comment: - patient has LT ureteral stent placed 09/21 for hydronephrosis, changed out 10/03 - wise cath for now - will go home w/ intermittent cath 6x/day (3) DM2 (diabetes mellitus, type 2) Current Visit: Yes Status: Chronic Priority: Medium Comment: - Uncontrolled-likely worsened by infection, - control improved w/ increased lantus, but needs further increase - Continue FSBG ACHS with lispro SS (SS increased). (4) Multiple sclerosis Current Visit: Yes Status: Chronic Priority: Medium Code(s): G35 - MULTIPLE SCLEROSIS SNOMED Code(s): 18113318 Comment: -MS likely exacerbated by acute infection -discussed IV steroids with Dr. Nur, he was not in favor -Will mobilize w/ PT, get OOB to chair (5) Constipation Current Visit: No Status: Acute Priority: Medium Code(s): K59.00 - CONSTIPATION, UNSPECIFIED SNOMED Code(s): 02782406 Comment: -Add MgCitrate 1x -c/w miralax, colace, senna Status and Disposition: inpatient. Not improving, may need STR
[2018-10-04] MEDS ORDERED: Magnesium CITRATE* 300 ML BTL PO ONE (16:11)
[2018-10-04] MEDS: Fluconazole 400 MG IVPREMIX(*) 400 MG/200 ML BAG IVPB SCH (16:25)
[2018-10-04] MEDS: Magnesium Oxide TAB* 400 MG PO SCH (16:27)
[2018-10-04] MEDS: Cholecalciferol TAB* 1000 UNITS PO SCH (17:32)
[2018-10-04] MEDS: Atorvastatin* 40 MG TAB PO SCH (21:48)
[2018-10-04] MEDS: Docusate CAP* 100 MG PO SCH (21:48)
[2018-10-04] MEDS: Senna TAB PO SCH (21:49)
[2018-10-04] MEDS: traMADol TAB* 50 MG PO PRN (21:49)
[2018-10-05] MEDS: Insulin LISPRO* 1 UNITS UNIT SUBCUT SCH ×4 (08:10→20:58)
[2018-10-05] MEDS: carBAMazepine TAB(*) 200 MG PO SCH ×2 (08:48→20:59)
[2018-10-05] MEDS: Metoprolol Succinate XL TAB* 100 MG PO SCH (08:48)
[2018-10-05] MEDS: Multivitamins/Minerals TAB PO SCH (08:48)
[2018-10-05] MEDS: Magnesium Oxide TAB* 400 MG PO SCH (08:48)
[2018-10-05] MEDS: Cefepime 2 GM in Dextrose(*) 2 GM/50 ML BAG IV SCH (08:48)
[2018-10-05] MEDS: Baclofen TAB* 20 MG PO SCH ×4 (08:48→20:59)
[2018-10-05] MEDS: Oxybutynin TAB* 5 MG PO SCH ×2 (08:48→20:59)
[2018-10-05] MEDS: Polyethylene Glycol 3350* 17 GM PACKET PO SCH (08:49)
[2018-10-05] MEDS: Heparin VIAL(*) 5000 UNITS/ML VIAL (FIVE THOUSAND) SUBCUT SCH ×2 (08:49→21:00)
[2018-10-05] MEDS: Docusate CAP* 100 MG PO SCH ×2 (08:49→20:59)
[2018-10-05] MEDS ORDERED: Insulin GLARGINE(*) 1 UNITS UNIT SUBCUT SCH (09:00)
--- NOTE | 2018-10-05 10:44 | PN ---
Progress Note - Progress Note Date of Service: 10/05/18 SOAP: Subjective: CC: fever HPI: 68 year old woman with recent left ureteral stent placement now with fever and abd pain. BM yesterday. More alert and less abd pain. Appetite improved. No fever or rash. Objective: Vital Signs Temp 37.3 C 10/05/18 07:39 Pulse 87 10/05/18 07:39 Resp 18 10/05/18 08:00 BP 119/62 10/05/18 07:39 Pulse Ox 95 10/05/18 08:00 Intake & Output 10/04/18 10/05/18 10/05/18 18:59 06:59 18:59 Intake Total 3300 55 Output Total 550 1350 750 Balance 2750 -1295 -750 Intake: IV Fluids 1500 LR 1500 IVPB 250 55 cefepime 50 55 fluconazole 200 Oral 1550 0 Output: Mcwilliams 550 1350 750 Other: # Bowel Movements 1 Estimated Stool Amount Large Gen:awake, no distress HEENT: no thrush Heart:RRR no murmur Lungs:CTA BL Abd:decr BS; non tender non distended Skin: no rash MSK: no joint Assessment: 1. fever, improved; with pyelonephritis and ureteral stent infection; improving 2. MS 3. Left ureteral stent 4. neurogenic bladder Plan: 1. DC cefepime and continue flucon 25 minutes floor time >50 % face to face in counseling regarding abx plans with pt and ; discussed with Dr Kearney
[2018-10-05] MEDS: PTO: Anastrozole (NF) 1 MG TAB PO SCH (12:31)
[2018-10-05] MEDS: Fluconazole 400 MG IVPREMIX(*) 400 MG/200 ML BAG IVPB SCH (14:48)
--- NOTE | 2018-10-05 16:41 | PN ---
Subjective Date of Service: 10/05/18 Interval History: Pt feels much better. Lethargy resolved. Appetite good. Back pain resolving Family History: Unchanged from Admission Social History: Unchanged from Admission Past Medical History: Unchanged from Admission Objective Active Medications: Acetaminophen (Tylenol Tab*) 650 mg PO Q6H PRN PRN Reason: pain/fever Last Admin: 10/04/18 16:27 Dose: 650 mg Anastrozole (Arimidex (Nf)) 1 mg PO 1200 [facility] Last Admin: 10/05/18 12:31 Dose: 1 mg Atorvastatin Calcium (Lipitor*) 40 mg PO BEDTIME [facility] Last Admin: 10/04/18 21:48 Dose: 40 mg Baclofen (Lioresal Tab*) 20 mg PO QID [facility] Last Admin: 10/05/18 12:31 Dose: 20 mg Carbamazepine (Tegretol Tab(*)) 200 mg PO BID [facility] Last Admin: 10/05/18 08:48 Dose: 200 mg Cholecalciferol (Vitamin D Tab*) 1,000 units PO QPM [facility] Last Admin: 10/04/18 17:32 Dose: 1,000 units Dextrose (D50w Syringe 50 Ml*) 12.5 gm IV PUSH .FOR FS < 60 - SS PRN PRN Reason: FS < 60 Docusate Sodium (Colace Cap*) 100 mg PO BID [facility] Last Admin: 10/05/18 08:49 Dose: Not Given Heparin Sodium (Porcine) (Heparin Vial(*)) 5,000 units SUBCUT Q12HR [facility] Last Admin: 10/05/18 08:49 Dose: 5,000 units Hydralazine HCl (Apresoline Iv*) 5 mg IV SLOW PU Q6H PRN PRN Reason: SBP >160 Last Admin: 09/26/18 19:40 Dose: 5 mg Fluconazole/Sodium Chloride (Diflucan 400 Mg Ivpremix(*)) 400 mg in 200 mls @ 100 mls/hr IVPB Q24H [facility] Last Admin: 10/05/18 14:48 Dose: 100 mls/hr Insulin Glargine (Lantus(*)) 65 units SUBCUT Q24H [facility] Last Admin: 10/05/18 08:49 Dose: 65 units Insulin Human Lispro (Humalog*) 0 units SUBCUT 0730,1130,1630,2100 [facility]; Protocol Last Admin: 10/05/18 12:31 Dose: 8 units Magnesium Oxide (Magox 400 Tab*) 400 mg PO DAILY [facility] Last Admin: 10/05/18 08:48 Dose: 400 mg Metoclopramide HCl (Reglan Iv*) 5 mg IV Q6H PRN PRN Reason: NAUSEA/VOMITING Last Admin: 09/30/18 10:35 Dose: 5 mg Metoprolol Succinate (Toprol Xl Tab*) 100 mg PO QAM [facility] Last Admin: 10/05/18 08:48 Dose: 100 mg Morphine Sulfate (Morphine Inj ((Syringe))*) 2 mg IV Q4H PRN PRN Reason: PAIN - MILD Last Admin: 10/04/18 03:00 Dose: 2 mg Multivitamins/Minerals (Theragran/Minerals Tab*) 1 tab PO QAM [facility] Last Admin: 10/05/18 08:48 Dose: 1 tab Nystatin (Nystatin Top Powder*) 1 applic TOPICAL TID PRN PRN Reason: RASH Last Admin: 09/26/18 22:36 Dose: 1 applic Ondansetron HCl (Zofran Inj*) 4 mg IV Q8H PRN PRN Reason: NAUSEA Last Admin: 10/04/18 12:18 Dose: 4 mg Oxybutynin Chloride (Ditropan Tab*) 5 mg PO BID [facility] Last Admin: 10/05/18 08:48 Dose: 5 mg Polyethylene Glycol/Electrolytes (Miralax*) 17 gm PO DAILY [facility] Last Admin: 10/05/18 08:49 Dose: Not Given Senna (Senokot Tab*) 1 tab PO BEDTIME [facility] Last Admin: 10/04/18 21:49 Dose: 1 tab Tramadol HCl (Ultram*) 50 mg PO Q12H PRN PRN Reason: PAIN Last Admin: 10/04/18 21:49 Dose: 50 mg Vital Signs - 8 hr 10/05/18 10/05/18 10/05/18 11:08 13:52 14:36 Temperature 98.5 F 98.3 F Pulse Rate 72 79 66 Respiratory 17 22 Rate Blood Pressure 103/51 109/56 150/90 (mmHg) O2 Sat by Pulse 96 97 Oximetry Oxygen Devices in Use Now: Nasal Cannula Result Diagrams: 10/04/18 05:29 10/04/18 05:29 Additional Lab and Data: Laboratory Tests 10/01/18 10/01/18 10/01/18 05:58 07:49 11:39 POC Glucose (mg/dL) 251 H 345 H C-Reactive Protein 80.51 H 10/01/18 10/01/18 16:12 20:11 POC Glucose (mg/dL) 289 H 299 H C-Reactive Protein Microbiology and Other Data: Microbiology 09/27/18 11:29 Nasal Influenza Types A,B Antigen - Final Specimen received for Influenza A/B Molecular testing 09/27/18 10:11 Urine Urine Culture - Final Kim Albicans 09/27/18 09:24 Blood Venous Aerobic Blood Culture - Final 09/27/18 09:24 Blood Venous Anaerobic Blood Culture - Final No Growth Day 5 No Growth Day 5 09/24/18 23:49 Blood Venous Aerobic Blood Culture - Final 09/24/18 23:49 Blood Venous Anaerobic Blood Culture - Final No Growth Day 5 No Growth Day 5 09/24/18 23:49 Blood Venous Aerobic Blood Culture - Final 09/24/18 23:49 Blood Venous Anaerobic Blood Culture - Final No Growth Day 5 No Growth Day 5 09/24/18 20:46 Urine Urine Culture - Final Kim Albicans Assess/Plan/Problems-Billing Assessment: This is a 68 year old female with history of MS and neurogenic bladder who underwent ureteral stenting on Wednesday and then presented to the ED on 09/24 with fevers, flank pain, and delirium - Patient Problems (1) Severe sepsis Comment: -The patient was severly septic on admission secondary to UTI. Thought to be resolved. Now WBC count elevated. -treating kim UTI with IV fluconazole. -discussed with Dr. Brewer, d/c Cefepime (2) Complicated urinary tract infection Comment: With recent instrumentation and stent suspect pt had possible previous infection prior to stent placement. s/p stent removal/exchange on Wednesday10/03/18. (3) Acute delirium Comment: Likely infectious resolved (4) Multiple sclerosis Comment: -MS likely exacerbated by acute infection -discussed IV steroids with Dr. Nur, he was not in favor -improving, cont PT (5) Seizure disorder Comment: Continue Carbamazepine. avoid fluoroquinolones for uti (6) Neurogenic bladder Comment: - patient has LT ureteral stent placed 09/21 for hydronephrosis, changed out 10/03 - wise cath for now - will go home w/ intermittent cath 6x/day (7) Lower back pain Comment: CT of lumbar spine shows no pathology that could be responsible for LBP (8) DM2 (diabetes mellitus, type 2) Comment: - Uncontrolled-likely worsened by infection, - control improved w/ increased lantus. Will also restart home glipizide. Pt had diarrhea on metformin in the past. Lantus at 65 U now. Pt will need insulin teaching prior to d/c - Continue FSBG ACHS with lispro SS (SS increased). (9) ROSSANA (acute kidney injury) Comment: Due to ongoing infection. resolving (10) DVT prophylaxis Comment: HSQ Status and Disposition: inpatient.
[2018-10-05] MEDS: glipiZIDE TAB* 5 MG PO SCH (17:11)
[2018-10-05] MEDS: Cholecalciferol TAB* 1000 UNITS PO SCH (17:39)
[2018-10-05] MEDS: Senna TAB PO SCH (20:58)
[2018-10-05] MEDS: Atorvastatin* 40 MG TAB PO SCH (20:59)
[2018-10-06] MEDS: Morphine INJ* 2 MG/ML 1 ML SYRINGE (TWO MG - NEW SYRINGE VERSION) IV PRN ×2 (01:31→09:57)
[2018-10-06 06:02] LABS: ABS Basophils 0.1 10^3/ul (0-0.2); ABS Eosinophils 0.3 10^3/ul (0-0.6); ABS Lymphocytes 1.5 10^3/ul (1.0-4.8); ABS Neutrophils 6.1 10^3/ul (1.5-7.7); ABS Nucleated RBC 0 10^3/ul; Hematocrit 31 % (35-47); Hemoglobin 10.5 g/dl (12.0-16.0); Lymphocyte % 16.8 %; Mean Corpuscular HGB Conc 34 g/dl (31-36); Mean Corpuscular Hemoglobin 31 pg (27-31); Mean Corpuscular Volume 93 fL (80-97); Mean Platelet Volume 8.2 fL (7.4-10.4); Nucleated Red Blood Cells % 0; Platelet Count 307 10^3/ul (150-450); Red Blood Count 3.38 10^6/ul (4.00-5.40); Red Cell Distribution Width 14 % (10.5-15)
[2018-10-06 06:24] LABS: BUN/Creatinine Ratio 17.4 (8-20); EGFR African American 79.6 (>60); EGFR Non-African American 65.8 (>60); Potassium 3.8 mmol/L (3.5-5.0)
[2018-10-06] MEDS: Insulin LISPRO* 1 UNITS UNIT SUBCUT SCH ×4 (08:21→21:12)
[2018-10-06] MEDS: Polyethylene Glycol 3350* 17 GM PACKET PO SCH (08:26)
[2018-10-06] MEDS: Baclofen TAB* 20 MG PO SCH ×4 (09:55→20:54)
[2018-10-06] MEDS: Metoprolol Succinate XL TAB* 100 MG PO SCH (09:55)
[2018-10-06] MEDS: Multivitamins/Minerals TAB PO SCH (09:55)
[2018-10-06] MEDS: Magnesium Oxide TAB* 400 MG PO SCH (09:55)
[2018-10-06] MEDS: Docusate CAP* 100 MG PO SCH ×2 (09:55→20:55)
[2018-10-06] MEDS: carBAMazepine TAB(*) 200 MG PO SCH ×2 (09:55→20:54)
[2018-10-06] MEDS: Oxybutynin TAB* 5 MG PO SCH ×2 (09:55→20:55)
[2018-10-06] MEDS: Heparin VIAL(*) 5000 UNITS/ML VIAL (FIVE THOUSAND) SUBCUT SCH (09:56)
[2018-10-06] MEDS: glipiZIDE TAB* 5 MG PO SCH ×2 (10:24→17:24)
[2018-10-06] MEDS: PTO: Anastrozole (NF) 1 MG TAB PO SCH (13:26)
--- NOTE | 2018-10-06 14:37 | PN ---
Subjective Date of Service: 10/06/18 Interval History: Pt feels well. Good appetite, afebrile Family History: Unchanged from Admission Social History: Unchanged from Admission Past Medical History: Unchanged from Admission Objective Active Medications: Acetaminophen (Tylenol Tab*) 650 mg PO Q6H PRN PRN Reason: pain/fever Last Admin: 10/04/18 16:27 Dose: 650 mg Anastrozole (Arimidex (Nf)) 1 mg PO 1200 [facility] Last Admin: 10/06/18 13:26 Dose: 1 mg Atorvastatin Calcium (Lipitor*) 40 mg PO BEDTIME [facility] Last Admin: 10/05/18 20:59 Dose: 40 mg Baclofen (Lioresal Tab*) 20 mg PO QID [facility] Last Admin: 10/06/18 13:26 Dose: 20 mg Carbamazepine (Tegretol Tab(*)) 200 mg PO BID [facility] Last Admin: 10/06/18 09:55 Dose: 200 mg Cholecalciferol (Vitamin D Tab*) 1,000 units PO QPM [facility] Last Admin: 10/05/18 17:39 Dose: 1,000 units Dextrose (D50w Syringe 50 Ml*) 12.5 gm IV PUSH .FOR FS < 60 - SS PRN PRN Reason: FS < 60 Docusate Sodium (Colace Cap*) 100 mg PO BID [facility] Last Admin: 10/06/18 09:55 Dose: Not Given Glipizide (Glucotrol Tab*) 5 mg PO 0800,1700 [facility] Last Admin: 10/06/18 10:24 Dose: 5 mg Heparin Sodium (Porcine) (Heparin Vial(*)) 5,000 units SUBCUT Q12HR [facility] Last Admin: 10/06/18 09:56 Dose: 5,000 units Hydralazine HCl (Apresoline Iv*) 5 mg IV SLOW PU Q6H PRN PRN Reason: SBP >160 Last Admin: 09/26/18 19:40 Dose: 5 mg Fluconazole/Sodium Chloride (Diflucan 400 Mg Ivpremix(*)) 400 mg in 200 mls @ 100 mls/hr IVPB Q24H [facility] Last Admin: 10/05/18 14:48 Dose: 100 mls/hr Insulin Human Lispro (Humalog*) 0 units SUBCUT 0730,1130,1630,2100 [facility]; Protocol Last Admin: 10/06/18 13:26 Dose: 12 units Magnesium Oxide (Magox 400 Tab*) 400 mg PO DAILY [facility] Last Admin: 10/06/18 09:55 Dose: 400 mg Metoclopramide HCl (Reglan Iv*) 5 mg IV Q6H PRN PRN Reason: NAUSEA/VOMITING Last Admin: 09/30/18 10:35 Dose: 5 mg Metoprolol Succinate (Toprol Xl Tab*) 100 mg PO QAM [facility] Last Admin: 10/06/18 09:55 Dose: 100 mg Morphine Sulfate (Morphine Inj ((Syringe))*) 2 mg IV Q4H PRN PRN Reason: PAIN - MILD Last Admin: 10/06/18 09:57 Dose: 2 mg Multivitamins/Minerals (Theragran/Minerals Tab*) 1 tab PO QAM [facility] Last Admin: 10/06/18 09:55 Dose: 1 tab Nystatin (Nystatin Top Powder*) 1 applic TOPICAL TID PRN PRN Reason: RASH Last Admin: 09/26/18 22:36 Dose: 1 applic Ondansetron HCl (Zofran Inj*) 4 mg IV Q8H PRN PRN Reason: NAUSEA Last Admin: 10/04/18 12:18 Dose: 4 mg Oxybutynin Chloride (Ditropan Tab*) 5 mg PO BID [facility] Last Admin: 10/06/18 09:55 Dose: 5 mg Polyethylene Glycol/Electrolytes (Miralax*) 17 gm PO DAILY [facility] Last Admin: 10/06/18 08:26 Dose: Not Given Senna (Senokot Tab*) 1 tab PO BEDTIME [facility] Last Admin: 10/05/18 20:58 Dose: 1 tab Vital Signs - 8 hr 10/06/18 10/06/18 10/06/18 07:18 07:27 08:26 Temperature 98.0 F Pulse Rate 73 Respiratory 18 16 16 Rate Blood Pressure 103/64 (mmHg) O2 Sat by Pulse 96 96 Oximetry 10/06/18 10/06/18 09:57 12:40 Temperature Pulse Rate Respiratory 20 20 Rate Blood Pressure (mmHg) O2 Sat by Pulse Oximetry Oxygen Devices in Use Now: Nasal Cannula Appearance: 68 yo F in nAD, AAOx2 Eyes: No Scleral Icterus, PERRLA Ears/Nose/Mouth/Throat: NL Teeth, Lips, Gums, Mucous Membranes Moist Neck: NL Appearance and Movements; NL JVP, Trachea Midline Respiratory: Symmetrical Chest Expansion and Respiratory Effort, Clear to Auscultation Cardiovascular: NL Sounds; No Murmurs; No JVD, RRR Abdominal: NL Sounds; No Tenderness; No Distention, No Hepatosplenomegaly Lymphatic: No Cervical Adenopathy Extremities: No Clubbing, Cyanosis, - - trace pedal edema b/l Skin: No Rash or Ulcers, No Nodules or Sclerosis Neurological: - - chronci b/l LE's weakness due to MS Result Diagrams: 10/06/18 05:30 10/06/18 05:30 Additional Lab and Data: Laboratory Tests 10/01/18 10/01/18 10/01/18 05:58 07:49 11:39 POC Glucose (mg/dL) 251 H 345 H C-Reactive Protein 80.51 H 10/01/18 10/01/18 16:12 20:11 POC Glucose (mg/dL) 289 H 299 H C-Reactive Protein Microbiology and Other Data: Microbiology 09/27/18 11:29 Nasal Influenza Types A,B Antigen - Final Specimen received for Influenza A/B Molecular testing 09/27/18 10:11 Urine Urine Culture - Final Kim Albicans 09/27/18 09:24 Blood Venous Aerobic Blood Culture - Final 09/27/18 09:24 Blood Venous Anaerobic Blood Culture - Final No Growth Day 5 No Growth Day 5 09/24/18 23:49 Blood Venous Aerobic Blood Culture - Final 09/24/18 23:49 Blood Venous Anaerobic Blood Culture - Final No Growth Day 5 No Growth Day 5 09/24/18 23:49 Blood Venous Aerobic Blood Culture - Final 09/24/18 23:49 Blood Venous Anaerobic Blood Culture - Final No Growth Day 5 No Growth Day 5 09/24/18 20:46 Urine Urine Culture - Final Kim Albicans Assess/Plan/Problems-Billing Assessment: This is a 68 year old female with history of MS and neurogenic bladder who underwent ureteral stenting on Wednesday and then presented to the ED on 09/24 with fevers, flank pain, and delirium - Patient Problems (1) Severe sepsis Comment: -The patient was severly septic on admission secondary to UTI -treating kim UTI with IV fluconazole. -discussed with Dr. Brewer, prob d/c home tomorrow on fluconazole 400 mg Daily x 10 days (2) Complicated urinary tract infection Comment: With recent instrumentation and stent suspect pt had possible previous infection prior to stent placement. s/p stent removal/exchange on Wednesday10/03/18. (3) Acute delirium Comment: Likely infectious resolved (4) Multiple sclerosis Comment: -MS likely exacerbated by acute infection -improving, cont PT (5) Seizure disorder Comment: Continue Carbamazepine. avoid fluoroquinolones for uti (6) Neurogenic bladder Comment: - patient has LT ureteral stent placed 09/21 for hydronephrosis, changed out 10/03 - wise cath for now - will go home w/ intermittent cath 6x/day (7) Lower back pain Comment: CT of lumbar spine shows no pathology that could be responsible for LBP (8) DM2 (diabetes mellitus, type 2) Comment: - Uncontrolled-likely worsened by infection, - control improved w/ increased lantus. Restarted home glipizide 10/05/18 and in AM pt was hypoglycemic. Stopped Lantus, cont glipizide. Pt had diarrhea on metformin in the past - Continue FSBG ACHS with lispro SS (9) ROSSANA (acute kidney injury) Comment: Due to ongoing infection. resolving (10) DVT prophylaxis Comment: HSQ Status and Disposition: inpatient.
[2018-10-06] MEDS: Fluconazole 400 MG IVPREMIX(*) 400 MG/200 ML BAG IVPB SCH (16:12)
[2018-10-06] MEDS: Cholecalciferol TAB* 1000 UNITS PO SCH (17:24)
[2018-10-06] MEDS: Atorvastatin* 40 MG TAB PO SCH (20:54)
[2018-10-06] MEDS: Senna TAB PO SCH (20:55)
[2018-10-07] MEDS: Morphine INJ* 2 MG/ML 1 ML SYRINGE (TWO MG - NEW SYRINGE VERSION) IV PRN (01:44)
[2018-10-07] MEDS: Baclofen TAB* 20 MG PO SCH ×2 (09:22→12:46)
[2018-10-07] MEDS: Polyethylene Glycol 3350* 17 GM PACKET PO SCH (09:22)
[2018-10-07] MEDS: glipiZIDE TAB* 5 MG PO SCH (09:22)
[2018-10-07] MEDS: Metoprolol Succinate XL TAB* 100 MG PO SCH (09:22)
[2018-10-07] MEDS: Multivitamins/Minerals TAB PO SCH (09:22)
[2018-10-07] MEDS: Docusate CAP* 100 MG PO SCH (09:22)
[2018-10-07] MEDS: Magnesium Oxide TAB* 400 MG PO SCH (09:22)
[2018-10-07] MEDS: Oxybutynin TAB* 5 MG PO SCH (09:22)
[2018-10-07] MEDS: Insulin LISPRO* 1 UNITS UNIT SUBCUT SCH ×2 (09:22→12:46)
[2018-10-07] MEDS: carBAMazepine TAB(*) 200 MG PO SCH (09:22)
[2018-10-07] MEDS: PTO: Anastrozole (NF) 1 MG TAB PO SCH (12:46)
[2018-10-07] MEDS ORDERED: Fluconazole 400 MG IVPREMIX(*) 400 MG/200 ML BAG IVPB SCH (14:00)
[2018-10-07 16:44] VITALS: BP 145/79
--- NOTE | 2018-10-07 20:30 | DS ---
CC: Dr. Olivares; Dr. Eaton; Dr. Brewer * DISCHARGE SUMMARY: DATE OF ADMISSION: 09/24/18 DATE OF DISCHARGE: 10/07/18 PRIMARY CARE PROVIDER: Dr. Olivares. DISCHARGE DIAGNOSES: 1. Severe sepsis due to leelee albicans urinary tract infection/complicated urinary tract infection in patient status post right-sided urinary catheter placed on 09/21/18. 2. Acute delirium. 3. Acute kidney injury due to severe sepsis. SECONDARY DIAGNOSES: 1. The patient has history of multiple sclerosis. 2. Neurogenic bladder. She self-caths at home up to 6 times a day. 3. History of seizure disorder. 4. Diabetes mellitus type 2. 5. History of breast cancer. 6. History of renal calculi, status post right ureteral stent placement on due to right obstructive ureteral calculi. 7. Status post breast lumpectomy. 8. History of cholecystectomy. MEDICATIONS AT DISCHARGE: Include: 1. Fluconazole 400 mg daily for a total of 10 days. 2. Acetaminophen on a p.r.n. basis. 3. Ditropan 5 mg b.i.d. 4. Nystatin powder on a p.r.n. basis. 5. Multivitamin 1 tablet daily. 6. Metoprolol succinate 100 mg daily. 7. Hydrocodone with acetaminophen 5/325 mg 1 tablet every 6 hours p.r.n. 8. Glipizide XL 5 mg b.i.d. 9. Vitamin D3 1000 units daily. 10. Tegretol 200 mg b.i.d. 11. Baclofen 20 mg 4 times a day. 12. Lipitor 40 mg at bedtime. 13. Anastrozole 1 mg daily. CONSULTATIONS DURING THE HOSPITAL STAY: Included Dr. Eaton from Urology, Dr. Brewer, Infectious Diseases. LABORATORY DATA AND STUDIES PERFORMED DURING THE HOSPITAL STAY: Included on 03/17, white blood cell count of 9.2, hemoglobin 10.5, hematocrit of 31, and platelets of 307. On 10/06/18, sodium of 136, potassium 3.8, chloride 99, carbon dioxide 30, BUN 15, creatinine 0.86. Last urinalysis performed on 09/27/18 showed turbid urine with +2 protein, +2 blood, +2 esterase, +3 white blood cells and red blood cells, and absent bacteria. Urine cultures grew leelee albicans twice during the hospital stay. Blood cultures were negative growth and obtained twice during the hospital stay. Last abdominal x-ray reported on 10/03/18 showed left ureteral stent in place. Repeat abdominal x-ray is pending at the time the dictation was performed today. Abdomen and pelvis CT obtained on 09/27/18, impression: "Left ureteral stent. There is mild pelvicaliectasis of the lower pole of the left kidney with perinephric stranding. Mild hepatomegaly with fatty infiltration of the liver. " Lumbar spine CT, impression: "No fracture or disk protrusion noted. Left ureteral stent in place." That was obtained on 09/26/18. Renal ultrasound obtained on 09/25/18, impression: "Left ureteral stent in place. Mild fullness of the left renal collecting system." HOSPITALIZATION COURSE: Lucretia Em is a 68-year-old female with history of multiple sclerosis, was wheelchair bound, and who was originally seen by Dr. Eaton on 09/21/18 for left ureteral stent placement due to ureteral stone and hydronephrosis. The patient was admitted to the hospital with symptoms of lethargy and was noted to be septic on 09/24/18. The patient started getting febrile during her hospital stay. Her blood cultures were unremarkable. Initially, she was placed on broad-spectrum antibiotics, but later on when it became apparent that urine obtained during the procedure on 09/21/18 grew leelee and repeat urine cultures are also positive for leelee, she was treated with fluconazole. Initially, the dose of fluconazole was 200 mg, but then was increased to [address] Eaton evaluated the patient. The patient's leukocytosis started resolving and the patient was afebrile by the time Dr. Eaton took the patient back to the operating room on to exchange the stent. It was noted that there was a significant concentration of fungus in the urine during the stent placement by Dr. Eaton on 10/03/18. Postoperatively, the patient did very well. The back pain that had been going on for several weeks now, had resolved. She was no longer febrile and her leukocytosis has resolved. Unfortunately during her hospital stay, she developed stage II decubitus. It is on her sacrum. The patient has history of decubitus in the past. Due to this, she has decreased sensation in this area and she is also bowel incontinent. Wound Care saw the patient in consultation and recommended barrier cream and frequent repositioning was continued throughout her hospital stay. Dr. Brewer saw the patient in consultation and recommended continuation of fluconazole at 400 mg daily for another 10 days of the discharge. After discharge, the patient recommended to follow up with her primary care provider in 4 to 7 days, Dr. Brewer in approximately a week and Dr. Eaton's office is asking for the patient to call them on Wednesday after the discharge to schedule a followup. Throughout the patient's hospital stay, her sugars were uncontrolled and she was transiently placed on insulin Lantus, but then greatly improved once she was placed back on glipizide and the Lantus was discontinued and her infection started resolving. The patient's systolic pressures were under 110s to 120s and her lovastatin was discontinued. Please also note that the patient had acute kidney injury with creatinine peaked at 1.29 on 09/28/18. That resolved by the time of discharge with creatinine of 0.8 at discharge. PHYSICAL EXAM AT TIME OF DISCHARGE: Blood pressure of 120/70, heart rate of 74 and regular, respiratory rate 14, oxygen saturation 92% on room air, temperature 98.2. General: Patient is a very pleasant 68-year-old female who is in no acute distress, alert, awake, and oriented x3. HEENT: Head: Atraumatic, normocephalic. Eyes: Pupils are equal, reactive to light and accommodation. Oropharynx is clear. Mucosa moist. Neck: Supple. No JVD. No bruits bilaterally. Cardiovascular: Regular rate and rhythm. No murmur. Respiratory: Clear to auscultation bilaterally. Abdomen: Soft, nontender. Bowel sounds are present in all 4 quadrants. Extremities: There is no edema. Pulses +2 bilaterally. No clubbing or cyanosis. On evaluation of the skin, the patient has stage II decubitus ulcer, approximately 8 cm in diameter, mostly on her left buttock. The skin on it is friable, also the subcutaneous tissue is partially exposed and the skin is bleeding. There was no evidence of cellulitis. On neuro evaluation, cranial nerves II through XII grossly intact. Motor strength is 5/5 bilaterally in the upper extremities and markedly decreased in bilateral lower extremities due to multiple sclerosis, which is the patient's baseline. The patient is being discharged home with visiting nurse association followup. The patient's was also educated about wound care, which she had decubitus ulcer in the past. Please note that this is a short summary of patient's hospitalization. Please refer to further medical records for details. TIME SPENT: Approximately 45 minutes was spent on the patient's discharge. [id number]/[facility] #: [id number] MTDD
== END 2018-10-07 17:00 | disposition home or self-care (01) | DRG 659 ==
LOC: ED 18:07 → MED 23:31
PROVIDERS: ADMIT Internal Medicine; ATTEND Internal Medicine
PROC: 0T778DZ Dilation of Left Ureter with Intraluminal Device, Via Natural or Artificial Opening Endoscopic (ICD-10-PCS; 2018-10-03)
PROC: 0TC78ZZ Extirpation of Matter from Left Ureter, Via Natural or Artificial Opening Endoscopic (ICD-10-PCS; 2018-10-03)
PROC: BT1FZZZ Fluoroscopy of Left Kidney, Ureter and Bladder (ICD-10-PCS; 2018-10-03)
PROC: 0TP98DZ Removal of Intraluminal Device from Ureter, Via Natural or Artificial Opening Endoscopic (ICD-10-PCS; principal; 2018-10-03 07:30)
DX: T83.593A Infection and inflammatory reaction due to other urinary stents, initial encounter (principal); A41.9 Sepsis, unspecified organism; G92 Toxic encephalopathy; R65.20 Severe sepsis without septic shock; N17.9 Acute kidney failure, unspecified; N13.6 Pyonephrosis; B37.49 Other urogenital candidiasis; L89.152 Pressure ulcer of sacral region, stage 2; E11.9 Type 2 diabetes mellitus without complications; I10 Essential (primary) hypertension; G35 Multiple sclerosis; M54.5 Low back pain; N31.9 Neuromuscular dysfunction of bladder, unspecified; Z96.0 Presence of urogenital implants; Y84.6 Urinary catheterization as the cause of abnormal reaction of the patient, or of later complication, without mention of misadventure at the time of the procedure; G40.909 Epilepsy, unspecified, not intractable, without status epilepticus; G83.9 Paralytic syndrome, unspecified; R60.1 Generalized edema; R06.82 Tachypnea, not elsewhere classified; K59.00 Constipation, unspecified; R14.0 Abdominal distension (gaseous); L89.309 Pressure ulcer of unspecified buttock, unspecified stage; Z80.6 Family history of leukemia; Z99.3 Dependence on wheelchair; Z85.3 Personal history of malignant neoplasm of breast; Z83.3 Family history of diabetes mellitus; Z87.440 Personal history of urinary (tract) infections; Z87.442 Personal history of urinary calculi; Z90.49 Acquired absence of other specified parts of digestive tract; Z88.2 Allergy status to sulfonamides; Z88.8 Allergy status to other drugs, medicaments and biological substances; Z87.891 Personal history of nicotine dependence; Y92.9 Unspecified place or not applicable; Z79.84 Long term (current) use of oral hypoglycemic drugs; Z79.811 Long term (current) use of aromatase inhibitors
CPT/HCPCS: 36415; 71045; 72131; 74018; 74176; 74420; 76775; 80048; 80053; 80156; 81003; 81015; 82947; 83036; 83605; 83735; 84443; 84484; 85025; 85027; 85610; 85730; 86140; 87040; 87086; 87106; 93005; 99285; A9270-GY; C1876; G8978-GP-CN; G8979-GP-CM; G8987-GO-CL; G8988-GO-CJ; J0360; J0692; J0696; J1450; J1644; J1940; J2270; J2405; J2704; J2765; J3010

== ENCOUNTER 2018-10-19 09:10 | Inpatient (IN) | payer MEDICARE, MEDICAID ==
[2018-10-19] MEDS ORDERED: NS 0.9% 1000 ML** 1,000 ML IV ONE ×2 (09:23→09:24)
--- NOTE | 2018-10-19 09:30 | ED ---
Altered Mental Status - HPI Summary HPI Summary: Pt is a 68 y/o female who presents to the ED c/o AMS. She was sent here by Dr. Eaton. As per , pt has been confused and incontinent for several days. Pt was recently admitted to [facility] for a leelee kidney infection and sepsis on for 2 weeks, and was discharged 10 days ago. She presented similarly with AMS for her prior admission. Pt is only oriented to person, and denies any SOB. She has a significant hx of UTI, sepsis, kidney infections, and hydronephrosis. Pt currently has a stent in her left kidney. PMHx MS, pt is unable to ambulate. - History Of Current Complaint Chief Complaint: EDAltMentalStatus Stated Complaint: DISORIENTED/CONFUSED Time Seen by Provider: 10/19/18 09:22 Hx Obtained From: Patient, Family/Community Administrator - Onset/Duration: Still Present Timing: Constant, Lasting Days - 2-3 Character: Confusion, Responsiveness, Lethargy Aggravating Factor(s): Other - possible kidney infection Alleviating Factor(s): Nothing Related History: Recent Illness - recent hospitaliztion for urosepsis - Allergies/Home Medications Allergies/Adverse Reactions: Allergies Allergy/AdvReac Type Severity Reaction Status Date / Time lisinopril Allergy Mild Swelling Verified 10/03/18 06:59 Sulfa (Sulfonamide AdvReac Intermediate Unknown Verified 10/03/18 06:59 Antibiotics) Reaction Details PMH/Surg Hx/FS Hx/Imm Hx Endocrine/Hematology History: Reports: Hx Diabetes Cardiovascular History: Reports: Hx Hypertension Denies: Hx Pacemaker/ICD GI History: Reports: Hx Gall Bladder Disease - cholecystectomy History: Reports: Hx Dialysis, Hx Kidney Infection, Hx Kidney Stones - HX OF AND CURRENTLY 09/2018, Other Problems/Disorders - HYDRONEPHROSIS Denies: Hx Renal Disease Musculoskeletal History: Reports: Other Musculoskeletal History - MS, DOES NOT AMBULATE; IN WC, sacral pressure ulcer-almost healed PER HUSBA Denies: Hx Arthritis Sensory History: Reports: Hx Contacts or Glasses - READING GLASSES Denies: Hx Hearing Aid Opthamlomology History: Reports: Hx Contacts or Glasses - READING GLASSES Neurological History: Reports: Hx Nerve Disease, Hx Seizures, Other Neuro Impairments/Disorders - MULTIPLE SCLEROSIS Denies: Hx Headaches Psychiatric History: Denies: Hx Anxiety, Hx Depression, Hx Panic Disorder - Cancer History Cancer Type, Location and Year: RIGHT BREAST CA W/ SURGICAL REMOVAL Hx Chemotherapy: No Hx Radiation Therapy: No - Surgical History Surgery Procedure, Year, and Place: CHOLECYSTECTOMY. RIGHT BREAST-LUMPECTOMY. KIDNEY STONE PROCEDURES Hx Anesthesia Reactions: No Infectious Disease History: No Infectious Disease History: Denies: Traveled Outside the [place] in Last 30 Days - Family History Known Family History: Positive: Diabetes - Social History Alcohol Use: None Hx Substance Use: No Substance Use Type: Reports: None Hx Tobacco Use: Yes Smoking Status (MU): Former Smoker Amount Used/How Often: X 1-2 YEARS Have You Smoked in the Last Year: No Review of Systems Negative: Shortness Of Breath Positive: incontinence Neurological: Other - AMS All Other Systems Reviewed And Are Negative: Yes Physical Exam - Summary Physical Exam Summary: Appearance: Well appearing, no pain distress Skin: warm, dry, reflects adequate perfusion, extremities cool Head/face: normal Eyes: EOMI, MARIYA, pupils sluggish ENT: mucous membranes dry Neck: supple, non-tender Respiratory: CTA, breath sounds limited and shallow Cardiovascular: RRR, pulses symmetrical Abdomen: non-tender, soft, Franco catheter with milky white urinary sediment Bowel Sounds: present Musculoskeletal: tone is poor, nearly no muscle strength Neuro:, alert and oriented to person only, somnolent, perseverates on a few phrases GCS: 13 Triage Information Reviewed: Yes Vital Signs On Initial Exam: Initial Vitals Temp Pulse Resp BP Pulse Ox 97.1 F 70 16 151/90 96 10/19/18 09:17 10/19/18 09:17 10/19/18 09:17 10/19/18 09:17 10/19/18 09:17 Vital Signs Reviewed: Yes Diagnostics - Vital Signs Vital Signs Temp Pulse Resp BP Pulse Ox 10/19/18 09:17 97.1 F 70 16 151/90 96 - Laboratory Result Diagrams: 10/19/18 10:14 10/19/18 10:14 Lab Statement: Any lab studies that have been ordered have been reviewed, and results considered in the medical decision making process. - Radiology CXR Radiology Interpretation Completed By: ED Physician Summary of Radiographic Findings: No acute infiltrate. Pending official radiology report. - CT Brain CT CT Interpretation Completed By: Radiologist Summary of CT Findings: 1. NO EVIDENCE FOR ACUTE INTRACRANIAL ABNORMALITY. 2. ATROPHY AND FINDINGS CONSISTENT WITH CHRONIC SMALL VESSEL ISCHEMIC CHANGES. ED physician reviewed radiology report. CT A/P CT Interpretation Completed By: Radiologist Summary of CT Findings: 1. LEFT URETERAL STENT, WITHOUT APPRECIABLE HYDRONEPHROSIS. 2. THE BLADDER IS COLLAPSED AROUND A FRANCO CATHETER AND IS NOT WELL EVALUATED. 3. ATHEROSCLEROSIS. ED physician reviewed radiology report. - EKG 9:32 Cardiac Rate: NL - 65 bpm EKG Rhythm: Sinus Rhythm ST Segment: Normal Summary of EKG Findings: LAD, nl intervals Altered Mental Statu Course/Dx - Course Course Of Treatment: Nurse's notes reviewed. Patient is critically ill- appearing with significant delirium and recent history of fungal urinary tract infection. Just discontinued oral Diflucan. IV Diflucan, IV antibiotic and IV fluids were given. Milky white discharge in fully catheter. No hypotension. Discussed with urologist who wanted CT scan to evaluate her indwelling ureteral stent. Admit through hospitalist service with urology consultation. - Diagnoses Differential Diagnosis/HQI/PQRI: Hypoglycemia, Medication Reaction, Metabolic Disorder, Sepsis Provider Diagnoses: Sepsis, Delirium, History of candidiasis, Acute urinary tract infection - Provider Notifications Discussed Care Of Patient With: Nando Blanco Time Discussed With Above Provider: 11:28 Instructed by Provider To: Other - Dr. Blanco wants to get a renal US. Admit the pt and give antibiotics. At 11:32 Dr. Montgomery accepted for admission. At 12: [address] Eaton, who would like a non-contrast CT instead of an US. - Critical Care Time Critical Care Time: 30-74 min - CCT is EXCLUSIVE of separately billable procedures Discharge - Sign-Out/Discharge Documenting (check all that apply): Patient Departure - Admit Patient Received Moderate/Deep Sedation with Procedure: No - Discharge Plan Condition: Stable Disposition: ADMITTED TO [facility] - Billing Disposition and Condition Condition: STABLE Disposition: Admitted to [facility] - Attestation Statements Document Initiated by Scribe: Yes Documenting Scribe: Martha Milan Provider For Whom Scribe is Documenting (Include Credential): Sadi Lama MD Scribe Attestation: Martha Graham, scribed for Sadi Lama MD on 10/19/18 at 1808. Scribe Documentation Reviewed: Yes Provider Attestation: The documentation as recorded by the scribeMartha accurately reflects the service I personally performed and the decisions made by me, Sadi Lama MD Status of [place] Document: Viewed
[2018-10-19] MEDS ORDERED: Fluconazole 200 MG IVPREMIX(*) 200 MG/100 ML BAG IVPB SCH (10:00)
[2018-10-19 10:32] LABS: ABS Basophils 0.1 10^3/ul (0-0.2); ABS Eosinophils 0.4 10^3/ul (0-0.6); ABS Lymphocytes 1.7 10^3/ul (1.0-4.8); ABS Neutrophils 8.4 10^3/ul (1.5-7.7); ABS Nucleated RBC 0 10^3/ul; Eosinophil % 3.3 %; Hematocrit 41 % (35-47); Hemoglobin 13.7 g/dl (12.0-16.0); Mean Corpuscular HGB Conc 34 g/dl (31-36); Mean Corpuscular Hemoglobin 31 pg (27-31); Mean Corpuscular Volume 92 fL (80-97); Mean Platelet Volume 8.3 fL (7.4-10.4); Nucleated Red Blood Cells % 0; Platelet Count 259 10^3/ul (150-450); Red Blood Count 4.43 10^6/ul (4.00-5.40); Red Cell Distribution Width 15 % (10.5-15); White Blood Count 11.5 10^3/ul (3.5-10.8)
[2018-10-19 10:39] LABS: INR 1.02 (0.77-1.02)
[2018-10-19 10:54] LABS: Troponin I 0.01 ng/mL (<0.04)
[2018-10-19 11:03] LABS: Albumin 4.3 g/dL (3.2-5.2); BUN/Creatinine Ratio 23.3 (8-20); Calcium 11.1 mg/dL (8.6-10.3); EGFR African American 79.6 (>60); EGFR Non-African American 65.8 (>60); Globulin 4.1 g/dL (2-4); Potassium 4.2 mmol/L (3.5-5.0); Total Bilirubin 0.4 mg/dL (0.2-1.0); Total Protein 8.4 g/dL (6.4-8.9)
[2018-10-19 11:23] LABS: Urine Appearance Cloudy; Urine Bacteria 2+ (Absent); Urine Bilirubin Negative (Negative); Urine Blood 1+ (Negative); Urine Color Yellow; Urine Glucose Negative (Negative); Urine Ketones Negative (Negative); Urine Nitrite Positive (Negative); Urine Protein 1+(30 mg/dL) (Negative); Urine Red Blood Cell 3+(>10/hpf) (Absent); Urine Specific Gravity 1.011 (1.010-1.030); Urine Urobilinogen Negative (Negative); Urine White Blood Cell 3+(>20/hpf) (Absent)
[2018-10-19] MEDS ORDERED: cefTRIAXone(*) 2 GM in NS 0.9% 100 ML* 100 ML IVPB ONE (11:29)
[2018-10-19] MEDS ORDERED: Nystatin TOP POWDER* 15 GM BTL TOPICAL PRN (12:22)
[2018-10-19] MEDS ORDERED: Acetaminophen TAB* 325 MG PO PRN (12:22)
[2018-10-19] MEDS ORDERED: amLODIPine TAB* 5 MG PO ONE (14:27)
--- NOTE | 2018-10-19 14:36 | HP ---
CC: Dr. Olivares; Dr. Eaton * ADMISSION HISTORY AND PHYSICAL: DATE OF ADMISSION: 10/19/18 PRIMARY CARE PROVIDER: Dr. Olivares. PRECISION MILLWRIGHT: Dr. Eaton. HEALTHCARE PROXY: Her . CODE STATUS: Full. SOURCE OF INFORMATION: History obtained from interview with the patient and her and review of past medical records. RELIABILITY: Good. CHIEF COMPLAINT: Lethargy. HISTORY OF PRESENT ILLNESS: This is a 68-year-old female with past medical history of advanced multiple sclerosis, neurogenic bladder who self-catheterizes , with recent hospital stay from 09/24/18 to 10/07/18, complicated course. The patient was admitted with severe sepsis at that time, ultimately with urine growing Kim albicans, but from infected stones; status post right ureteral stents placement and change by Dr. Eaton on 09/21/18 and then 10/03/18 respectively. Patient was treated with fluconazole with defervescence as well as improvement in her leukocytosis. It was noted that her discharge urinalysis had no bacteria in it. That hospital stay was complicated by the development of a stage II decubitus ulcer. Review of the intraoperative note from the stent replacement on 10/03/18 indicated that there is a lot of cloudy debris in the ureter and visualization of the stone was impaired. Stone retrieval does not appear to have occurred. There were additional studies performed to evaluate whether the patient was a candidate for lithotripsy. It is unclear from these notes whether she was; however, she did have a planned followup with Dr. Eaton in 2 days from today. However, after her discharge, she was doing well, but 3 days prior to presentation, started to develop lethargy, disorientation, she was more off balance and incontinent. She had trouble self-catheterizing and these are all similar symptoms that prompted previous presentations where she was found to have urinary tract infections. She has been increasingly sleepy and sleeping, although her p.o. intake has been okay until the day prior to presentation when she had a precipitous worsening in her lethargy and aforementioned symptomatology. This morning called the urologist's office to review these symptoms with that practice who directed patient to the emergency room. The patient's and patient do specifically deny fevers and decreased urine output as well as cough. ER provider noted that after placement of urinary catheter in the emergency room there was milky white fluid in the catheter. The patient was discharged on fluconazole 400 mg daily, which she completed a day prior to presentation. PAST MEDICAL HISTORY: Includes advanced MS, neurogenic bladder; self- catheterizes, frequent UTIs, kidney stones, recently infected stone with kim , type 2 diabetes, hypertension, seizure disorder. She had a left breast lumpectomy and ureteral stents. HOME MEDICATIONS: 1. Acetaminophen p.r.n. 2. Ditropan 5 mg twice daily. 3. Nystatin powder p.r.n. 4. Multivitamin 1 tablet daily. 5. Metoprolol succinate 100 mg daily. 6. Hydrocodone/acetaminophen 5 mg/325 mg 1 tablet every 6 hours. 7. Glipizide XL 5 mg twice daily. 8. Vitamin D3 at 1000 units daily. 9. Tegretol 200 mg twice daily. 10. Baclofen 20 mg 4 times a day. 11. Lipitor 40 mg at bedtime. 12. Anastrozole 1 mg daily. ALLERGIES: To LISINOPRIL and SULFA. FAMILY HISTORY: Mother had leukemia. SOCIAL HISTORY: No alcohol or tobacco or illicits. REVIEW OF SYSTEMS: All other systems reviewed are negative. PHYSICAL EXAMINATION GENERAL: Lying flat, lethargic, although wakes to voice, can follow easy simple commands such as open mouth and open eyes. VITAL SIGNS: When seen by this author, 169/96, heart rate is 67, respiratory rate was 22, she was 97% on room air, T-max is 97.1. HEENT: Oropharynx is clear, but dry. NECK: She has non-elevated JVD. LUNGS: Clear to auscultation. HEART: She has a regular rate and rhythm without murmurs, rubs or gallops. ABDOMEN: Soft, nontender, nondistended. EXTREMITIES: Warm and well perfused. Trace bilateral lower extremity edema. NEUROLOGIC: She is lethargic, but able to open her eyes and follow simple commands as indicated above. Falls back to sleep quickly. PSYCHIATRIC: No apparent anxiety, agitation, or depression. She is in no distress. SKIN EXAM: Stage II decubitus ulcer on patient's sacrum, superior aspect of bilateral gluteal region, approximately 1 x 1 inch breakdown on bilateral aspects. Good wound healing, slightly erythematous surrounding, but there is no discharge, no apparent infection. LABORATORY DATA: Labs were reviewed, notable for white blood cell count of 11.3, 72.7% neutrophils. BUN is 20, creatinine is 0.83, glucose of 198, lactic acid 1.5, calcium is 11.1, with an albumin of 4.3. Urine is positive for protein, blood, nitrites, leukocyte esterase, white blood cells, red blood cells , and bacteria. Data reviewed, brain CT, impression: No evidence for acute intracranial abnormality or atrophy. Findings consistent with chronic small-vessel ischemic changes. Chest x-ray, no active cardiopulmonary disease on this author's interpretation. EKG , QTc is noted to be 444, left axis, normal R-wave progression. No ST or T - wave changes, except for subtle submillimeter ST depression in lead II. ASSESSMENT AND PLAN: This is a 68-year-old female with past medical history as outlined above including recent hospital stay with candidal sepsis, thought from an infected stone, returning with lethargy a day after finishing fluconazole. The urine grossly positive at this time as well with bacteria. 1. Altered mental status/lethargy. Suspect in setting of active infection, suspect urine as the source again in the absence of other etiology. Received ceftriaxone in the emergency room. Will continue daily. Although she stopped fluconazole yesterday, I will continue it again as there may potentially be a nidus as the infected stone still present. Urology is consulted. They will see and evaluate further as well. Two liters of normal saline at 150 cc per hour. Also, consult ID to assist with this case. Maintain Mcwilliams catheter. 2. Multiple sclerosis. Stable. 3. History of seizure disorder. Continue carbamazepine. Check level in the setting of altered mental status/lethargy. 4. Type 2 diabetes. Continue glipizide. Check fingersticks. 5. Hypertension. Continue home medications including metoprolol, hold parameters. 6. Hypercalcemia. Fluids as indicated above. Recheck ionized level tomorrow, unclear etiology at this point, no evidence of renal failure. 7. DVT prophylaxis. Heparin subcu, we need to stop it before an intervention. 8. Sacral decubitus ulcer stage II. Continue wound care. [id number]/[facility] #: [id number] [facility]
[2018-10-19] MEDS: HYDROcodone/ACETAMIN 5-325 MG* 1 TAB PO PRN ×2 (15:06→20:50)
[2018-10-19] MEDS: Baclofen TAB* 10 MG PO SCH ×3 (15:09→20:50)
[2018-10-19] MEDS: NS 0.9% 1000 ML** 1,000 ML IV SCH ×2 (15:12→23:31)
[2018-10-19] MEDS: Cholecalciferol TAB* 1000 UNITS PO SCH (17:19)
[2018-10-19] MEDS: Acetaminophen TAB* 325 MG PO PRN (19:14)
[2018-10-19] MEDS ORDERED: hydrALAZINE IV* 20 MG/ML VIAL IV SLOW PU ONE (19:30)
[2018-10-19] MEDS: Atorvastatin* 40 MG TAB PO SCH (20:50)
[2018-10-19] MEDS: Oxybutynin TAB* 5 MG PO SCH (20:50)
[2018-10-19] MEDS: glipiZIDE TAB.XL* 5 MG PO SCH (20:50)
[2018-10-19] MEDS: carBAMazepine TAB(*) 200 MG PO SCH (20:50)
[2018-10-19] MEDS ORDERED: Labetalol IV* 5 MG/ML 20 ML VIAL IV PUSH ONE (20:57)
[2018-10-19] MEDS ORDERED: Metoprolol Tartrate IV* 1 MG/ML 5 ML VIAL IV ONE (21:42)
[2018-10-19] MEDS: Heparin VIAL(*) 5000 UNITS/ML VIAL (FIVE THOUSAND) SUBCUT SCH ×2 (21:58→22:15)
[2018-10-19] MEDS: Morphine INJ* 2 MG/ML 1 ML SYRINGE (TWO MG - NEW SYRINGE VERSION) IV PRN (23:07)
[2018-10-20] MEDS ORDERED: Zosyn per Pharmacy* NOTE FOLLOW UP PRN (01:28)
[2018-10-20] MEDS ORDERED: ZOSYN 3.375 GM x ONE DOSE over 30 miuntes IVPB ×2 (01:30)
[2018-10-20] MEDS ORDERED: Lactated Ringers 1000 ML Bag* 1,000 ML IV SCH (01:46)
[2018-10-20] MEDS ORDERED: Acetaminophen SUPP* 325 MG SUPP PR ONE (01:56)
--- NOTE | 2018-10-20 01:56 | PN ---
Progress Note - Progress Note Date of Service: 10/20/18 Note: I was called about the patient at about 0050 for increased RR/HR and fever. Patient was admitted for probable UTI leading to AMS/lethargy. At 0054 the patient was found to be febrile in addition to tachycardic and tachypnic. At this time she now meets for sepsis. Will obtain STAT CBC, BMP, lactic acid. Blood cultures were drawn AM 10/19/18 so will not repeat those now. She has been on ceftriaxone and fluconazole based on prior urine cultures. Will broaden Abx coverage to zosyn and fluconazole. Will await results of labs now. LR 1L bolus to be given now (if evidence of severe sepsis based on labs will give a total 30ml/kg bolus). Will order rectal tylenol for fever which may also lead to improved HR/RR.
[2018-10-20] MEDS ORDERED: Morphine INJ* 2 MG/ML 1 ML SYRINGE (TWO MG - NEW SYRINGE VERSION) IV ONE (01:57)
[2018-10-20] MEDS ORDERED: Morphine INJ* 2 MG/ML 1 ML SYRINGE (TWO MG - NEW SYRINGE VERSION) ONE (02:05)
[2018-10-20] MEDS ORDERED: Acetaminophen SUPP* 325 MG SUPP ONE (02:09)
[2018-10-20] MEDS: Acetaminophen SUPP* 650 MG SUPP ONE ×2 (02:44→02:46)
[2018-10-20 03:27] LABS: ABS Basophils 0.1 10^3/ul (0-0.2); ABS Eosinophils 0.2 10^3/ul (0-0.6); ABS Lymphocytes 1.2 10^3/ul (1.0-4.8); ABS Monocytes 1.2 10^3/ul (0-0.8); ABS Neutrophils 11.1 10^3/ul (1.5-7.7); ABS Nucleated RBC 0 10^3/ul; Eosinophil % 1.7 %; Hematocrit 37 % (35-47); Lymphocyte % 8.4 %; Mean Corpuscular HGB Conc 32 g/dl (31-36); Mean Corpuscular Hemoglobin 30 pg (27-31); Mean Corpuscular Volume 93 fL (80-97); Mean Platelet Volume 8.8 fL (7.4-10.4); Nucleated Red Blood Cells % 0.1; Platelet Count 200 10^3/ul (150-450); Red Blood Count 3.99 10^6/ul (4.00-5.40); Red Cell Distribution Width 15 % (10.5-15); White Blood Count 13.8 10^3/ul (3.5-10.8)
[2018-10-20 03:36] LABS: BUN/Creatinine Ratio 18.5 (8-20); Calcium 8.8 mg/dL (8.6-10.3); Carbamazepine 5.3 mcg/mL (4.0-12.0); EGFR Non-African American 90.9 (>60); Phosphorus 2.6 mg/dL (2.5-5.0); Potassium 3.7 mmol/L (3.5-5.0)
[2018-10-20] MEDS ORDERED: LR IV SCH (05:15)
[2018-10-20] MEDS ORDERED: ZOSYN 3.375 GM Q8H per EXTENDED INFUSION IVPB SCH ×2 (05:30)
[2018-10-20] MEDS: Heparin VIAL(*) 5000 UNITS/ML VIAL (FIVE THOUSAND) SUBCUT SCH ×3 (05:43→19:59)
[2018-10-20] MEDS: ZOSYN 3.375 GM IVPB SCH ×6 (07:47→19:49)
[2018-10-20] MEDS: Morphine INJ* 2 MG/ML 1 ML SYRINGE (TWO MG - NEW SYRINGE VERSION) IV PRN (07:56)
[2018-10-20] MEDS ORDERED: Acetaminophen SUPP* 650 MG SUPP PR PRN (08:17)
[2018-10-20] MEDS ORDERED: Calcium Gluconate INJ* 2 GM in NS 0.9% 100 ML* 100 ML IV ONE (08:17)
[2018-10-20] MEDS ORDERED: Dextrose 50% Syringe 50 ML* 25 GM/50 ML SYRINGE IV PUSH PRN (08:19)
[2018-10-20] MEDS: carBAMazepine TAB(*) 200 MG PO SCH ×2 (08:42→19:53)
[2018-10-20] MEDS: glipiZIDE TAB.XL* 5 MG PO SCH ×2 (08:42→19:51)
[2018-10-20] MEDS: Baclofen TAB* 10 MG PO SCH ×4 (08:42→19:52)
[2018-10-20] MEDS: Oxybutynin TAB* 5 MG PO SCH ×2 (08:42→19:53)
[2018-10-20] MEDS: Multivitamins/Minerals TAB PO SCH (08:42)
[2018-10-20] MEDS ORDERED: Metoprolol Succinate XL TAB* 100 MG PO SCH (09:00)
[2018-10-20] MEDS ORDERED: Vancomycin(*) 1,250 MG in NS 0.9% 250 ML* 250 ML IVPB ONE (09:30)
[2018-10-20] MEDS ORDERED: Vancomycin per Pharmacy* NOTE FOLLOW UP SCH (10:00)
[2018-10-20] MEDS: Fluconazole 400 MG IVPREMIX(*) 400 MG/200 ML BAG IVPB SCH (11:02)
[2018-10-20] MEDS ORDERED: cefTRIAXone(*) 1 GM in NS 0.9% 50 ML* 50 ML IVPB SCH (12:00)
[2018-10-20] MEDS: Insulin LISPRO* 1 UNITS UNIT SUBCUT SCH ×2 (13:38→17:35)
[2018-10-20] MEDS: CMCS:Anastrozole (NF) 1 MG TAB PO SCH (15:18)
--- NOTE | 2018-10-20 17:06 | PN ---
Subjective Date of Service: 10/20/18 Interval History: Lethargic this AM and having difficulty swallowing pills - although morphine administration is noted at bedside who agrees mental status decreased from yesterday Objective Active Medications: Acetaminophen (Tylenol Tab*) 650 mg PO Q4H PRN PRN Reason: FEVER/PAIN Last Admin: 10/19/18 19:14 Dose: 650 mg Acetaminophen (Tylenol Supp*) 650 mg VT Q4H PRN PRN Reason: FEVER Last Admin: 10/20/18 08:30 Dose: 650 mg Hydrocodone Bitart/Acetaminophen ([place] 5-325 Tab*) 1 tab PO Q6H PRN PRN Reason: PAIN Last Admin: 10/19/18 20:50 Dose: 1 tab Anastrozole (Arimidex (Nf)) 1 mg PO 1200 [facility] Last Admin: 10/20/18 15:18 Dose: 1 mg Atorvastatin Calcium (Lipitor*) 40 mg PO BEDTIME [facility] Last Admin: 10/19/18 20:50 Dose: 40 mg Baclofen (Lioresal Tab*) 20 mg PO QID [facility] Last Admin: 10/20/18 13:34 Dose: Not Given Carbamazepine (Tegretol Tab(*)) 200 mg PO BID [facility] Last Admin: 10/20/18 08:42 Dose: Not Given Cholecalciferol (Vitamin D Tab*) 1,000 units PO QPM [facility] Last Admin: 10/19/18 17:19 Dose: 1,000 units Dextrose (D50w Syringe 50 Ml*) 12.5 gm IV PUSH .FOR FS < 60 - SS PRN PRN Reason: FS < 60 Glipizide (Glucotrol Xl*) 5 mg PO BID [facility] Last Admin: 10/20/18 08:42 Dose: Not Given Heparin Sodium (Porcine) (Heparin Vial(*)) 5,000 units SUBCUT Q8HR [facility] Last Admin: 10/20/18 15:42 Dose: 5,000 units Sodium Chloride (Ns 0.9% 1000 Ml) 1,000 mls @ 150 mls/hr IV PER RATE [facility] Stop: 10/20/18 19:09 Last Admin: 10/19/18 23:31 Dose: 150 mls/hr Lactated Ringer's (Lactated Ringers 1000 Ml Bag*) 1,000 mls @ 0 mls/hr IV WIDE OPEN [facility] Stop: 10/20/18 23:59 Last Admin: 10/20/18 03:00 Dose: 999 mls/hr Piperacillin Sod/Tazobactam (Sod 3.375 gm/ Sodium Chloride) 100 mls @ 200 mls/ hr IVPB Q6H [facility] Last Admin: 10/20/18 15:42 Dose: 200 mls/hr Fluconazole/Sodium Chloride (Diflucan 400 Mg Ivpremix(*)) 400 mg in 200 mls @ 100 mls/hr IVPB Q24H [facility] Last Admin: 10/20/18 11:02 Dose: 100 mls/hr Vancomycin HCl 1,000 mg/ (Sodium Chloride) 250 mls @ 166.667 mls/hr IVPB Q12H [facility] Insulin Human Lispro (Humalog*) 0 units SUBCUT Q6HR [facility]; Protocol Last Admin: 10/20/18 13:38 Dose: 2 unit Multivitamins/Minerals (Theragran/Minerals Tab*) 1 tab PO QAM [facility] Last Admin: 10/20/18 08:42 Dose: Not Given Nystatin (Nystatin Top Powder*) 1 applic TOPICAL TID PRN PRN Reason: RASH Ondansetron HCl (Zofran Inj*) 4 mg IV Q4H PRN PRN Reason: NAUSEA/VOMITING Oxybutynin Chloride (Ditropan Tab*) 5 mg PO BID [facility] Last Admin: 10/20/18 08:42 Dose: Not Given Pharmacy Consult (Zosyn Per Pharmacy*) 1 note FOLLOW UP . PRN PRN Reason: PER PROTOCOL Pharmacy Consult (Vancomycin Per Pharmacy*) 1 note FOLLOW UP .VANC PER PHARMACY [facility] Pharmacy Profile Note (Vancomycin Trough Check) 1 note FOLLOW UP 1030 ONE Stop: 10/22/18 10:31 Vital Signs - 8 hr 10/20/18 10/20/18 10/20/18 09:21 11:00 13:42 Temperature 100.4 F Pulse Rate 97 Respiratory 16 Rate Blood Pressure 173/78 (mmHg) O2 Sat by Pulse 95 Oximetry 10/20/18 10/20/18 10/20/18 13:45 14:15 16:07 Temperature 97.8 F Pulse Rate 96 Respiratory Rate Blood Pressure 142/80 156/72 (mmHg) O2 Sat by Pulse 94 Oximetry Oxygen Devices in Use Now: Nasal Cannula Appearance: sitting up in bed, lethargic but arousable Eyes: No Scleral Icterus, PERRLA Ears/Nose/Mouth/Throat: - - dry MM Neck: NL Appearance and Movements; NL JVP, Trachea Midline Respiratory: Symmetrical Chest Expansion and Respiratory Effort, Clear to Auscultation Cardiovascular: RRR Abdominal: - - grimaces to deep palpation throughout Extremities: No Edema Neurological: - - AOx0, opens mouth for all requests (open eyes, show me your hand), moves all extremities, responsive to voice Result Diagrams: 10/20/18 01:57 10/20/18 01:57 Microbiology and Other Data: Microbiology 10/19/18 11:01 Urine Culture - Preliminary Urine Escherichia Coli 10/19/18 10:19 Aerobic Blood Culture - Preliminary Blood Venous No Growth Day 1 Anaerobic Blood Culture - Preliminary No Growth Day 1 10/19/18 10:19 Aerobic Blood Culture - Preliminary Blood Venous No Growth Day 1 Anaerobic Blood Culture - Preliminary No Growth Day 1 Assess/Plan/Problems-Billing Assessment: 68 F h/o MS, neurogenic bladder, recurrent UTIs recent hospital stay with obstructing ureteral stone, candidal UTI s/p ureteral stent placement returns with alteration in mental status c/w previous infections - Patient Problems (1) Toxic metabolic encephalopathy Comment: In setting of sepsis abx broadened this AM to vanco/zosyn c/w fluconazole urine returned with e.coli and not fluconazole - waiting to narrow abx until clinical improvement is seen. If leelee ultimately grows again in urine may need perc nephrostomy tube with abx irrigation (discussed with uro) - this may require transfer out but not necessarily Minimize narcotics (2) Sepsis Comment: See "toxic metabolic encephalopathy" fluids decreased broad spectrum abx and fluconazole urine suspected as source (3) Sacral decubitus ulcer, stage II Comment: c/w wound care did not appear infected on presentation (4) DM2 (diabetes mellitus, type 2) Comment: c/w glipizide add ISS while trouble with PO meds (5) Multiple sclerosis Comment: cw ant spasm medications including tegretol (6) Neurogenic bladder Comment: self cath at home wise placed in ED this visit (7) Seizure disorder Comment: takes tegretol for spasm not seizures discussed with Dr. Nur No transition to IV alternative (8) DVT prophylaxis Comment: HSQ
[2018-10-20] MEDS: Cholecalciferol TAB* 1000 UNITS PO SCH (17:35)
[2018-10-20] MEDS: Acetaminophen TAB* 325 MG PO PRN (19:49)
[2018-10-20] MEDS: Atorvastatin* 40 MG TAB PO SCH (19:51)
[2018-10-20] MEDS: Vancomycin(*) 1,000 MG in NS 0.9% 250 ML* 250 ML IVPB SCH (23:18)
[2018-10-21] MEDS: Insulin LISPRO* 1 UNITS UNIT SUBCUT SCH ×4 (00:39→18:01)
[2018-10-21] MEDS: ZOSYN 3.375 GM IVPB SCH ×6 (01:03→14:29)
[2018-10-21] MEDS: Heparin VIAL(*) 5000 UNITS/ML VIAL (FIVE THOUSAND) SUBCUT SCH ×3 (05:58→20:47)
[2018-10-21 07:55] LABS: BUN/Creatinine Ratio 12.9 (8-20); Calcium 8.8 mg/dL (8.6-10.3); EGFR African American 116.2 (>60); Potassium 2.9 mmol/L (3.5-5.0)
[2018-10-21] MEDS: glipiZIDE TAB.XL* 5 MG PO SCH (08:27)
[2018-10-21] MEDS: carBAMazepine TAB(*) 200 MG PO SCH ×2 (08:27→20:47)
[2018-10-21] MEDS: Oxybutynin TAB* 5 MG PO SCH ×2 (08:27→20:47)
[2018-10-21] MEDS: Baclofen TAB* 10 MG PO SCH ×4 (08:27→20:47)
[2018-10-21] MEDS: Multivitamins/Minerals TAB PO SCH (08:27)
[2018-10-21 08:37] LABS: Magnesium 1.2 mg/dL (1.9-2.7)
[2018-10-21] MEDS: Fluconazole 400 MG IVPREMIX(*) 400 MG/200 ML BAG IVPB SCH (10:17)
[2018-10-21] MEDS: KCL 20 MEQ/100 ML IVPREMIX* 20 MEQ/100 ML BAG IV SCH ×2 (10:18→12:34)
[2018-10-21] MEDS: Potassium Chlor TAB* 20 MEQ TAB.ER PO SCH ×2 (10:18→14:29)
[2018-10-21] MEDS: Vancomycin(*) 1,000 MG in NS 0.9% 250 ML* 250 ML IVPB SCH (12:34)
[2018-10-21] MEDS: CMCS:Anastrozole (NF) 1 MG TAB PO SCH (12:37)
[2018-10-21] MEDS: Magnesium Sulfate 2 GM IV* 2 GM/50 ML BAG IVPB SCH ×2 (14:28→15:45)
--- NOTE | 2018-10-21 17:38 | PN ---
Subjective Date of Service: 10/21/18 Interval History: Resting in bed on assessment with at bedside. Patient is more alert today then described in previous notes. She is answering questions, smiling, and making good eye contact. Reports some back discomfort which she attributes to the bed. Patient does take [place] 1/2 or 1 tab at home. Does have PRN ordered here. Denies cp, sob, palpitations, cough, nausea, vomiting, fever, chills. Objective Active Medications: Acetaminophen (Tylenol Tab*) 650 mg PO Q4H PRN PRN Reason: FEVER/PAIN Last Admin: 10/20/18 19:49 Dose: 650 mg Acetaminophen (Tylenol Supp*) 650 mg NM Q4H PRN PRN Reason: FEVER Last Admin: 10/20/18 08:30 Dose: 650 mg Hydrocodone Bitart/Acetaminophen ([place] 5-325 Tab*) 1 tab PO Q6H PRN PRN Reason: PAIN Last Admin: 10/19/18 20:50 Dose: 1 tab Anastrozole (Arimidex (Nf)) 1 mg PO 1200 [facility] Last Admin: 10/21/18 12:37 Dose: 1 mg Atorvastatin Calcium (Lipitor*) 40 mg PO BEDTIME [facility] Last Admin: 10/20/18 19:51 Dose: 40 mg Baclofen (Lioresal Tab*) 20 mg PO QID [facility] Last Admin: 10/21/18 12:37 Dose: 20 mg Carbamazepine (Tegretol Tab(*)) 200 mg PO BID [facility] Last Admin: 10/21/18 08:27 Dose: 200 mg Cholecalciferol (Vitamin D Tab*) 1,000 units PO QPM [facility] Last Admin: 10/20/18 17:35 Dose: 1,000 units Dextrose (D50w Syringe 50 Ml*) 12.5 gm IV PUSH .FOR FS < 60 - SS PRN PRN Reason: FS < 60 Glipizide (Glucotrol Xl*) 5 mg PO BID [facility] Last Admin: 10/21/18 08:27 Dose: 5 mg Heparin Sodium (Porcine) (Heparin Vial(*)) 5,000 units SUBCUT Q8HR [facility] Last Admin: 10/21/18 14:29 Dose: 5,000 units Fluconazole/Sodium Chloride (Diflucan 400 Mg Ivpremix(*)) 400 mg in 200 mls @ 100 mls/hr IVPB Q24H [facility] Last Admin: 10/21/18 10:17 Dose: 100 mls/hr Ampicillin Sodium 2 gm/ Sodium (Chloride) 100 mls @ 200 mls/hr IVPB Q6H [facility] Insulin Human Lispro (Humalog*) 0 units SUBCUT Q6HR [facility]; Protocol Last Admin: 10/21/18 12:36 Dose: 2 unit Multivitamins/Minerals (Theragran/Minerals Tab*) 1 tab PO QAM [facility] Last Admin: 10/21/18 08:27 Dose: 1 tab Nystatin (Nystatin Top Powder*) 1 applic TOPICAL TID PRN PRN Reason: RASH Ondansetron HCl (Zofran Inj*) 4 mg IV Q4H PRN PRN Reason: NAUSEA/VOMITING Oxybutynin Chloride (Ditropan Tab*) 5 mg PO BID [facility] Last Admin: 10/21/18 08:27 Dose: 5 mg Pharmacy Profile Note (Vancomycin Trough Check) 1 note FOLLOW UP 1030 ONE Stop: 10/22/18 10:31 Vital Signs - 8 hr 10/21/18 10/21/18 10/21/18 10:30 11:49 15:23 Temperature 99.1 F 98.5 F Pulse Rate 99 92 Respiratory 18 16 12 Rate Blood Pressure 160/94 145/76 (mmHg) O2 Sat by Pulse 94 96 Oximetry Oxygen Devices in Use Now: None Appearance: Comfortable, NAD Ears/Nose/Mouth/Throat: Clear Oropharnyx, Mucous Membranes Moist Neck: NL Appearance and Movements; NL JVP Respiratory: Symmetrical Chest Expansion and Respiratory Effort, Clear to Auscultation Cardiovascular: NL Sounds; No Murmurs; No JVD, RRR, No Edema Abdominal: NL Sounds; No Tenderness; No Distention Lymphatic: No Cervical Adenopathy Extremities: No Clubbing, Cyanosis Skin: No Nodules or Sclerosis Neurological: Alert and Oriented x 3 Nutrition: Taking PO's Result Diagrams: 10/20/18 01:57 10/21/18 07:27 Additional Lab and Data: Laboratory Results - last 24 hr 10/20/18 10/21/18 10/21/18 23:15 05:48 07:27 Sodium 138 Potassium 2.9 L Chloride 102 Carbon Dioxide 25 Anion Gap 11 BUN 8 Creatinine 0.62 Est GFR ( Amer) 116.2 Est GFR (Non-Af Amer) 96.0 BUN/Creatinine Ratio 12.9 Glucose 154 H POC Glucose (mg/dL) 150 H 154 H Calcium 8.8 Ionized Calcium Magnesium 1.2 L 10/21/18 10/21/18 07:27 12:22 Sodium Potassium Chloride Carbon Dioxide Anion Gap BUN Creatinine Est GFR ( Amer) Est GFR (Non-Af Amer) BUN/Creatinine Ratio Glucose POC Glucose (mg/dL) 170 H Calcium Ionized Calcium 1.10 L Magnesium Microbiology and Other Data: Microbiology 10/19/18 11:01 Urine Urine Culture - Preliminary Escherichia Coli Enterococcus Faecalis 10/19/18 10:19 Blood Venous Aerobic Blood Culture - Preliminary No Growth Day 2 10/19/18 10:19 Blood Venous Anaerobic Blood Culture - Preliminary No Growth Day 2 10/19/18 10:19 Blood Venous Aerobic Blood Culture - Preliminary No Growth Day 2 10/19/18 10:19 Blood Venous Anaerobic Blood Culture - Preliminary No Growth Day 2 Assess/Plan/Problems-Billing Assessment: 68 F h/o MS, neurogenic bladder, recurrent UTIs recent hospital stay with obstructing ureteral stone, candidal UTI s/p ureteral stent placement returns with alteration in mental status c/w previous infections - Patient Problems (1) Toxic metabolic encephalopathy Comment: - In setting of sepsis - Initially started on Rocephin and Fluconazole, then abx broadened yesterday AM to vanco/zosyn due to meeting sepsis, and then narrowed to Ampicillin by ID after urine cultures resulted - ID recommends continuing with fluconazole for another 1 to 2 days. Recommends we be mindful as this medication interrupt other medications such as seizure medications - Urology involved and states that if leelee ultimately grows again in urine may need perc nephrostomy tube with abx irrigation - this may require transfer out but not necessarily - Minimize narcotics (2) Electrolyte abnormality Comment: - Ionzied Calcium 1.04 on 10/20, replaced provided yesterday and now 1.10. - Mag 1.2; replacemnt ordered - Potassium 2.9; Replacement ordered. - Tele ordered given potassium low and replacement - Will recheck tomorrow (3) Sacral decubitus ulcer, stage II Comment: - Wound care - Did not appear infected on presentation - Turn and position (4) Sepsis Comment: - See "toxic metabolic encephalopathy" - urine suspected as source - Improving (5) DM2 (diabetes mellitus, type 2) Current Visit: Yes Status: Chronic Priority: Medium Comment: - Hold Glipizide - Cont SS (6) Multiple sclerosis Comment: - Cont anti spasm medications including tegretol - PT/OT consulting (7) Neurogenic bladder Comment: - Self cath at home - Mcwilliams placed in ED this visit (8) Seizure disorder Comment: - Takes tegretol for spasm not seizures per Dr Montgomery's discussion with Dr. Nur (9) DVT prophylaxis Comment: Heparin subQ Status and Disposition: Inpatient. Attending: Ac Sierra
[2018-10-21] MEDS: Cholecalciferol TAB* 1000 UNITS PO SCH (18:01)
[2018-10-21] MEDS: Ampicillin ADVAN(*) 2 GM in NS 0.9% 100 ML* 100 ML IVPB SCH ×2 (18:01→22:13)
--- NOTE | 2018-10-21 19:15 | CONS ---
CONSULTATION REPORT: DATE OF CONSULT: 10/21/18 REQUESTING PHYSICIAN: Dr. Montgomery. CONSULTING SERVICE: Infectious Disease. REASON FOR CONSULT: Urinary tract infection. HISTORY OF PRESENT ILLNESS: This is a 68-year-old woman with neurogenic bladder due to multiple sclerosis. 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 She had apparently slowly been improving while at home as well. However, 2 to 3 days before coming in, she developed decreased energy, appetite, and malaise. She had a fever. She was routed to the ER by Dr. Eaton's office. Here, she had a temp of 39. She was hemodynamically stable. Her white count was 11,000. CT scan showed left-sided ureteral stent without hydronephrosis. A chest x-ray showed no acute changes. She was started on vancomycin, Zosyn, and fluconazole. She was febrile overnight last night. No fever this morning. White count is up to 13,000 today. She is feeling a bit better overall. Appetite is starting to come back. She has no sinus or dental symptoms. No spine or joint pain. No skin rash. PAST MEDICAL HISTORY: 1. Multiple sclerosis with urinary retention due to neurogenic bladder, requiring intermittent catheterization. 2. History of left-sided hydronephrosis and left ureteral stent, complicated by kim stent infection, exchange of the stent in August 2018. 3. Multiple sclerosis. 4. Nephrolithiasis. 5. Type 2 diabetes mellitus. 6. Hypertension. 7. Seizure disorder. 8. Status post left breast lumpectomy for cancer. ALLERGIES: LISINOPRIL and SULFA. MEDICATIONS: 1. Tylenol. 2. Anastrozole. 3. Lipitor. 4. Baclofen. 5. Carbamazepine. 6. Cholecalciferol. 7. Fluconazole 400 mg daily. 8. Heparin subcutaneous injection. 9. Oxybutynin. 10. Zosyn. FAMILY HISTORY: No recurrent infections. SOCIAL HISTORY: She lives with her . She is a nonsmoker. No alcohol. REVIEW OF SYSTEMS: All negative except as noted above to a 14-point review as noted in the history of present illness. PHYSICAL EXAM: Vital Signs: Temperature 37, heart rate 90, respiratory rate 12 , blood pressure 145/76, oxygen saturation 96% on room air. In general, she is awake, not in distress. Neurologic: She is oriented x3. Follows all commands. Sensation is intact to light touch in both upper extremities. HEENT: There is no conjunctival hemorrhage. Oropharynx without lesions. Neck is supple without mass. Heart is regular rate and rhythm without murmurs, rubs, or gallops. Lungs are clear to auscultation bilaterally. Abdomen: Soft, nontender, nondistended. There are bowel sounds present. There is no flank tenderness to palpation. Skin: There is no rash or splinter hemorrhage. Musculoskeletal: There is no spine tenderness to palpation or joint synovitis. DIAGNOSTIC STUDIES/LAB DATA: Creatinine 0.6. White blood cell count 13, hemoglobin 12, platelets 200. Carbamazepine level is 5.3 this morning. Blood cultures were negative. IMPRESSION: 1. Left ureteral stent and now with fever, malaise, vomiting, anorexia. Urinalysis shows nitrites, leukocyte esterase, red and white cells. Culture of the urine is growing Escherichia coli which is pansensitive, 100,000 colonies or more, and Enterococcus faecalis 75,000 to 100,000 colonies. She has been on vancomycin, Zosyn, fluconazole and feeling much better. 2. Recent Kim albicans stent and urinary tract infection, on 2 weeks of fluconazole, which she had apparently tolerated well. Her symptoms developed while still on fluconazole, so I think it is less likely related to ongoing kim infection. 3. Multiple sclerosis with urinary retention. 4. SULFA allergy. RECOMMENDATIONS: We will stop vancomycin and Zosyn, start ampicillin 2 g IV every 6 hours to cover E. coli and enterococcus. We can continue her fluconazole here while awaiting to get more information. We will just need to keep a close eye on drug-drug interactions while she is on fluconazole including her Tegretol and glipizide. Please see impressions and recommendations outlined above, which I have discussed with Dr. Sierra. Thanks for asking me to see Ms. Em in consultation. [id number]/[facility] #: [id number] TORI
[2018-10-21] MEDS: Acetaminophen TAB* 325 MG PO PRN (19:20)
[2018-10-21] MEDS: Atorvastatin* 40 MG TAB PO SCH (20:47)
[2018-10-21] MEDS: HYDROcodone/ACETAMIN 5-325 MG* 1 TAB PO PRN (20:53)
[2018-10-22] MEDS: Insulin LISPRO* 1 UNITS UNIT SUBCUT SCH ×5 (00:19→21:21)
[2018-10-22] MEDS: Ampicillin ADVAN(*) 2 GM in NS 0.9% 100 ML* 100 ML IVPB SCH ×4 (04:12→21:19)
[2018-10-22] MEDS: Heparin VIAL(*) 5000 UNITS/ML VIAL (FIVE THOUSAND) SUBCUT SCH ×3 (05:42→22:33)
[2018-10-22] MEDS: HYDROcodone/ACETAMIN 5-325 MG* 1 TAB PO PRN ×3 (07:54→22:50)
[2018-10-22] MEDS: Oxybutynin TAB* 5 MG PO SCH ×2 (07:55→21:20)
[2018-10-22] MEDS: Multivitamins/Minerals TAB PO SCH (07:55)
[2018-10-22] MEDS: carBAMazepine TAB(*) 200 MG PO SCH ×2 (07:55→21:20)
[2018-10-22] MEDS: Baclofen TAB* 10 MG PO SCH ×4 (07:55→21:20)
[2018-10-22 08:29] LABS: ABS Basophils 0.1 10^3/ul (0-0.2); ABS Eosinophils 0.4 10^3/ul (0-0.6); ABS Lymphocytes 1.6 10^3/ul (1.0-4.8); ABS Monocytes 0.7 10^3/ul (0-0.8); ABS Neutrophils 2.9 10^3/ul (1.5-7.7); ABS Nucleated RBC 0 10^3/ul; Eosinophil % 6.7 %; Hematocrit 32 % (35-47); Hemoglobin 10.5 g/dl (12.0-16.0); Lymphocyte % 28.1 %; Mean Corpuscular HGB Conc 33 g/dl (31-36); Mean Corpuscular Hemoglobin 31 pg (27-31); Mean Corpuscular Volume 92 fL (80-97); Mean Platelet Volume 8.1 fL (7.4-10.4); Nucleated Red Blood Cells % 0; Platelet Count 146 10^3/ul (150-450); Red Blood Count 3.42 10^6/ul (4.00-5.40); Red Cell Distribution Width 15 % (10.5-15); White Blood Count 5.7 10^3/ul (3.5-10.8)
[2018-10-22 08:46] LABS: BUN/Creatinine Ratio 11.5 (8-20); Calcium 8.3 mg/dL (8.6-10.3); EGFR African American 118.4 (>60); EGFR Non-African American 97.8 (>60); Magnesium 1.8 mg/dL (1.9-2.7); Potassium 3.5 mmol/L (3.5-5.0)
[2018-10-22] MEDS ORDERED: Vancomycin Trough Check NOTE FOLLOW UP ONE (10:30)
[2018-10-22] MEDS: Fluconazole 400 MG IVPREMIX(*) 400 MG/200 ML BAG IVPB SCH (10:40)
[2018-10-22] MEDS ORDERED: Calcium Carbonate TAB* 1250 MG (CALCIUM 500 MG) PO SCH (12:00)
[2018-10-22] MEDS: CMCS:Anastrozole (NF) 1 MG TAB PO SCH (12:31)
[2018-10-22] MEDS ORDERED: Calcium Carbonate TAB* 1250 MG (CALCIUM 500 MG) PO ONE (12:35)
--- NOTE | 2018-10-22 12:52 | PN ---
Subjective Date of Service: 10/22/18 Interval History: Ms. Em's is here with her. THey both agree she is getting better. She feels much better. Complains of back pain which is unchanged from her usual back pain. Afebrile, no overnight events. Objective Active Medications: Acetaminophen (Tylenol Tab*) 650 mg PO Q4H PRN PRN Reason: FEVER/PAIN Last Admin: 10/21/18 19:20 Dose: 650 mg Acetaminophen (Tylenol Supp*) 650 mg NM Q4H PRN PRN Reason: FEVER Last Admin: 10/20/18 08:30 Dose: 650 mg Hydrocodone Bitart/Acetaminophen ([place] 5-325 Tab*) 1 tab PO Q6H PRN PRN Reason: PAIN Last Admin: 10/22/18 07:54 Dose: 1 tab Anastrozole (Arimidex (Nf)) 1 mg PO 1200 [facility] Last Admin: 10/22/18 12:31 Dose: 1 mg Atorvastatin Calcium (Lipitor*) 40 mg PO BEDTIME [facility] Last Admin: 10/21/18 20:47 Dose: 40 mg Baclofen (Lioresal Tab*) 20 mg PO QID [facility] Last Admin: 10/22/18 12:32 Dose: 20 mg Carbamazepine (Tegretol Tab(*)) 200 mg PO BID [facility] Last Admin: 10/22/18 07:55 Dose: 200 mg Cholecalciferol (Vitamin D Tab*) 1,000 units PO QPM [facility] Last Admin: 10/21/18 18:01 Dose: 1,000 units Dextrose (D50w Syringe 50 Ml*) 12.5 gm IV PUSH .FOR FS < 60 - SS PRN PRN Reason: FS < 60 Heparin Sodium (Porcine) (Heparin Vial(*)) 5,000 units SUBCUT Q8HR [facility] Last Admin: 10/22/18 05:42 Dose: 5,000 units Fluconazole/Sodium Chloride (Diflucan 400 Mg Ivpremix(*)) 400 mg in 200 mls @ 100 mls/hr IVPB Q24H [facility] Last Admin: 10/22/18 10:40 Dose: 100 mls/hr Ampicillin Sodium 2 gm/ Sodium (Chloride) 100 mls @ 200 mls/hr IVPB Q6H [facility] Last Admin: 10/22/18 09:54 Dose: 200 mls/hr Insulin Human Lispro (Humalog*) 0 units SUBCUT ACHS [facility]; Protocol Multivitamins/Minerals (Theragran/Minerals Tab*) 1 tab PO QAM [facility] Last Admin: 10/22/18 07:55 Dose: 1 tab Nystatin (Nystatin Top Powder*) 1 applic TOPICAL TID PRN PRN Reason: RASH Last Admin: 10/22/18 12:38 Dose: 1 applic Ondansetron HCl (Zofran Inj*) 4 mg IV Q4H PRN PRN Reason: NAUSEA/VOMITING Oxybutynin Chloride (Ditropan Tab*) 5 mg PO BID [facility] Last Admin: 10/22/18 07:55 Dose: 5 mg Vital Signs - 8 hr 10/22/18 10/22/18 10/22/18 07:54 07:55 08:00 Temperature 97.6 F Pulse Rate 89 Respiratory 17 16 16 Rate Blood Pressure 172/89 (mmHg) O2 Sat by Pulse 97 Oximetry 10/22/18 10/22/18 10/22/18 08:35 09:58 11:58 Temperature 98.4 F Pulse Rate 85 Respiratory 16 16 Rate Blood Pressure 168/78 140/81 (mmHg) O2 Sat by Pulse 97 Oximetry Oxygen Devices in Use Now: None Appearance: alert, pleasant, forgetful but appropriate Eyes: No Scleral Icterus Ears/Nose/Mouth/Throat: NL Teeth, Lips, Gums Neck: NL Appearance and Movements; NL JVP Respiratory: Symmetrical Chest Expansion and Respiratory Effort Cardiovascular: NL Sounds; No Murmurs; No JVD, RRR Abdominal: NL Sounds; No Tenderness; No Distention, - - wise in place Lymphatic: No Cervical Adenopathy Extremities: No Edema Skin: No Rash or Ulcers Neurological: - - upper extremity strength 4/5, lower extremity strength 2/5 Result Diagrams: 10/22/18 08:17 10/22/18 08:17 Additional Lab and Data: Laboratory Results - last 24 hr 10/20/18 10/21/18 10/21/18 23:15 05:48 07:27 Sodium 138 Potassium 2.9 L Chloride 102 Carbon Dioxide 25 Anion Gap 11 BUN 8 Creatinine 0.62 Est GFR ( Amer) 116.2 Est GFR (Non-Af Amer) 96.0 BUN/Creatinine Ratio 12.9 Glucose 154 H POC Glucose (mg/dL) 150 H 154 H Calcium 8.8 Ionized Calcium Magnesium 1.2 L 10/21/18 10/21/18 07:27 12:22 Sodium Potassium Chloride Carbon Dioxide Anion Gap BUN Creatinine Est GFR ( Amer) Est GFR (Non-Af Amer) BUN/Creatinine Ratio Glucose POC Glucose (mg/dL) 170 H Calcium Ionized Calcium 1.10 L Magnesium Microbiology and Other Data: Microbiology 10/19/18 11:01 Urine Urine Culture - Preliminary Escherichia Coli Enterococcus Faecalis 10/19/18 10:19 Blood Venous Aerobic Blood Culture - Preliminary No Growth Day 2 10/19/18 10:19 Blood Venous Anaerobic Blood Culture - Preliminary No Growth Day 2 10/19/18 10:19 Blood Venous Aerobic Blood Culture - Preliminary No Growth Day 2 10/19/18 10:19 Blood Venous Anaerobic Blood Culture - Preliminary No Growth Day 2 Assess/Plan/Problems-Billing Assessment: This is a 68 year old lady with history of MS (x40 years), neurogenic bladder ( straight caths 8x/day), recurrent UTIs recent hospital stay with obstructing ureteral stone, candidal UTI s/p ureteral stent placement returns with alteration in mental status c/w previous infections - Patient Problems (1) Sepsis Current Visit: Yes Status: Acute Comment: now resolved clear urinary source Initially started on Rocephin and Fluconazole, then abx broadened 10/20 to vanco/ zosyn due to meeting sepsis, and then narrowed to Ampicillin by ID after urine cultures resulted U cultures growing E. coli and E. faecalis, blood cultures negative Urology involved and states that if leelee ultimately grows again in urine may need perc nephrostomy tube with abx irrigation (2) Toxic metabolic encephalopathy Current Visit: Yes Status: Acute Code(s): G92 - TOXIC ENCEPHALOPATHY SNOMED Code(s): 693501910 Comment: In setting of sepsis and underlying dementia Improving (3) Sacral decubitus ulcer, stage II Current Visit: Yes Status: Acute Code(s): L89.152 - PRESSURE ULCER OF SACRAL REGION, STAGE 2 SNOMED Code(s): 401249589 Comment: Wound care Did not appear infected on presentation Turn and position (4) DM2 (diabetes mellitus, type 2) Current Visit: Yes Status: Chronic Priority: Medium Comment: Hold Glipizide Cont SS (5) Multiple sclerosis Current Visit: Yes Status: Chronic Priority: High Code(s): G35 - MULTIPLE SCLEROSIS SNOMED Code(s): 32280974 Comment: Cont anti spasm medications including tegretol (6) Neurogenic bladder Current Visit: Yes Status: Chronic Code(s): N31.9 - NEUROMUSCULAR DYSFUNCTION OF BLADDER, UNSPECIFIED SNOMED Code(s): 011199378 Comment: wise in place, straight caths at home (7) Electrolyte abnormality Current Visit: No Status: Acute Code(s): E87.8 - OTH DISORDERS OF ELECTROLYTE AND FLUID BALANCE, NEC SNOMED Code(s): 771352983 Comment: Not supposed to be on correction Ca due to nephrolithiasis but needs to be repleted, one time dose today Mag better today Status and Disposition: Inpatient.
[2018-10-22] MEDS: Cholecalciferol TAB* 1000 UNITS PO SCH (16:57)
[2018-10-22] MEDS: Acetaminophen TAB* 325 MG PO PRN (21:20)
[2018-10-22] MEDS: Atorvastatin* 40 MG TAB PO SCH (21:20)
[2018-10-23] MEDS: Ampicillin ADVAN(*) 2 GM in NS 0.9% 100 ML* 100 ML IVPB SCH ×4 (05:30→23:31)
[2018-10-23] MEDS: Ondansetron INJ* 2 MG/ML VIAL IV PRN ×3 (06:13→23:39)
[2018-10-23] MEDS: Heparin VIAL(*) 5000 UNITS/ML VIAL (FIVE THOUSAND) SUBCUT SCH ×3 (06:13→23:40)
[2018-10-23 06:26] LABS: ABS Basophils 0.1 10^3/ul (0-0.2); ABS Eosinophils 0.4 10^3/ul (0-0.6); ABS Lymphocytes 2.1 10^3/ul (1.0-4.8); ABS Monocytes 0.8 10^3/ul (0-0.8); ABS Neutrophils 2.3 10^3/ul (1.5-7.7); ABS Nucleated RBC 0 10^3/ul; Eosinophil % 6.6 %; Hematocrit 31 % (35-47); Hemoglobin 10.3 g/dl (12.0-16.0); Lymphocyte % 37.7 %; Mean Corpuscular HGB Conc 34 g/dl (31-36); Mean Corpuscular Hemoglobin 31 pg (27-31); Mean Corpuscular Volume 91 fL (80-97); Mean Platelet Volume 8.1 fL (7.4-10.4); Nucleated Red Blood Cells % 0; Platelet Count 167 10^3/ul (150-450); Red Blood Count 3.34 10^6/ul (4.00-5.40); Red Cell Distribution Width 15 % (10.5-15); White Blood Count 5.5 10^3/ul (3.5-10.8)
[2018-10-23 06:51] LABS: BUN/Creatinine Ratio 16.4 (8-20); Calcium 8.8 mg/dL (8.6-10.3); EGFR African American 118.4 (>60); EGFR Non-African American 97.8 (>60); Magnesium 1.4 mg/dL (1.9-2.7); Potassium 3.4 mmol/L (3.5-5.0)
[2018-10-23] MEDS ORDERED: Magnesium Sulfate IV* 3 GM in NS 0.9% 100 ML* 100 ML IVPB ONE (08:00)
[2018-10-23] MEDS: KCL 10 MEQ/50 ML IVPREMIX* 10 MEQ/50 ML BAG IV SCH ×3 (08:17→11:34)
[2018-10-23] MEDS: Oxybutynin TAB* 5 MG PO SCH (08:17)
[2018-10-23] MEDS: Insulin LISPRO* 1 UNITS UNIT SUBCUT SCH ×4 (08:17→21:30)
[2018-10-23] MEDS: HYDROcodone/ACETAMIN 5-325 MG* 1 TAB PO PRN ×2 (08:17→18:50)
[2018-10-23] MEDS: Multivitamins/Minerals TAB PO SCH (08:18)
[2018-10-23] MEDS: Baclofen TAB* 10 MG PO SCH ×3 (08:18→16:55)
[2018-10-23] MEDS: carBAMazepine TAB(*) 200 MG PO SCH (08:18)
--- NOTE | 2018-10-23 09:22 | PN ---
Subjective Date of Service: 10/23/18 Interval History: HOSPITALIST PROGRESS NOTE Patient seen and examined at bedside. Care reviewed and d/w Tomas Sarabia RN. She feels better today, in good spirits. As per her mental status is much improved. She states back pain is improved, appetite has returned, denies N /V. Family History: Unchanged from Admission Social History: Unchanged from Admission Past Medical History: Unchanged from Admission Objective Active Medications: Acetaminophen (Tylenol Tab*) 650 mg PO Q4H PRN PRN Reason: FEVER/PAIN Last Admin: 10/22/18 21:20 Dose: 650 mg Acetaminophen (Tylenol Supp*) 650 mg [place] Q4H PRN PRN Reason: FEVER Last Admin: 10/20/18 08:30 Dose: 650 mg Hydrocodone Bitart/Acetaminophen ([place] 5-325 Tab*) 1 tab PO Q6H PRN PRN Reason: PAIN Last Admin: 10/23/18 08:17 Dose: 1 tab Anastrozole (Arimidex (Nf)) 1 mg PO 1200 [facility] Last Admin: 10/22/18 12:31 Dose: 1 mg Atorvastatin Calcium (Lipitor*) 40 mg PO BEDTIME [facility] Last Admin: 10/22/18 21:20 Dose: 40 mg Baclofen (Lioresal Tab*) 20 mg PO QID [facility] Last Admin: 10/23/18 08:18 Dose: 20 mg Carbamazepine (Tegretol Tab(*)) 200 mg PO BID [facility] Last Admin: 10/23/18 08:18 Dose: 200 mg Cholecalciferol (Vitamin D Tab*) 1,000 units PO QPM [facility] Last Admin: 10/22/18 16:57 Dose: 1,000 units Dextrose (D50w Syringe 50 Ml*) 12.5 gm IV PUSH .FOR FS < 60 - SS PRN PRN Reason: FS < 60 Heparin Sodium (Porcine) (Heparin Vial(*)) 5,000 units SUBCUT Q8HR [facility] Last Admin: 10/23/18 06:13 Dose: 5,000 units Heparin Sodium (Porcine) (Heparin Flush Picc/Ml/Cvc(*)) 1 ml FLUSH 0600,1800 [facility]; Protocol Last Admin: 10/23/18 06:13 Dose: 1 ml Fluconazole/Sodium Chloride (Diflucan 400 Mg Ivpremix(*)) 400 mg in 200 mls @ 100 mls/hr IVPB Q24H [facility] Last Admin: 10/22/18 10:40 Dose: 100 mls/hr Ampicillin Sodium 2 gm/ Sodium (Chloride) 100 mls @ 200 mls/hr IVPB Q6H [facility] Last Admin: 10/23/18 05:30 Dose: 200 mls/hr Magnesium Sulfate 3 gm/ Sodium (Chloride) 106 mls @ 53 mls/hr IVPB ONCE ONE Stop: 10/23/18 09:59 Potassium Chloride (Potassium Chloride 10 Meq/50 Ml Ivpremix*) 10 meq in 50 mls @ 50 mls/hr IV Q1H [facility] Stop: 10/23/18 10:59 Last Admin: 10/23/18 08:17 Dose: 50 mls/hr Insulin Human Lispro (Humalog*) 0 units SUBCUT ACHS [facility]; Protocol Last Admin: 10/23/18 08:17 Dose: 2 unit Multivitamins/Minerals (Theragran/Minerals Tab*) 1 tab PO QAM [facility] Last Admin: 10/23/18 08:18 Dose: 1 tab Nystatin (Nystatin Top Powder*) 1 applic TOPICAL TID PRN PRN Reason: RASH Last Admin: 10/22/18 12:38 Dose: 1 applic Ondansetron HCl (Zofran Inj*) 4 mg IV Q4H PRN PRN Reason: NAUSEA/VOMITING Last Admin: 10/23/18 06:13 Dose: 4 mg Oxybutynin Chloride (Ditropan Tab*) 5 mg PO BID [facility] Last Admin: 10/23/18 08:17 Dose: 5 mg Vital Signs - 8 hr 10/23/18 10/23/18 10/23/18 01:23 02:22 08:17 Temperature 97.9 F Pulse Rate 94 Respiratory 18 20 16 Rate Blood Pressure 146/71 (mmHg) O2 Sat by Pulse 95 Oximetry Oxygen Devices in Use Now: None Appearance: Pleasant elderly lady sitting up in bed in [facility]. Eyes: No Scleral Icterus Ears/Nose/Mouth/Throat: Mucous Membranes Moist Neck: Trachea Midline Respiratory: Symmetrical Chest Expansion and Respiratory Effort, Clear to Auscultation Cardiovascular: RRR - Normal S1 and S2 Neurological: Alert and Oriented x 3 Result Diagrams: 10/23/18 06:15 10/23/18 06:15 Assess/Plan/Problems-Billing Assessment: Mrs Em is a 68 yo F with PMH of type 2 DM, breast CA, MS, neurogenic bladder ( straight caths 8x/day), recurrent UTIs with recent hospital stay with obstructing ureteral stone, kim UTI s/p ureteral stent placement who presented to ED with altered MS, found to have another episode of UTI. - Patient Problems (1) Sepsis Comment: - Present on admission, now resolved. - Source is E. coli and E. faecalis UTI, present on admission, not Mcwilliams catheter related. (2) Toxic metabolic encephalopathy Comment: - In setting of sepsis - improving. (3) UTI (urinary tract infection) Comment: - Complicated urological history - known neurogenic bladder associated with MS, straight cath 8 times/day at home. Had left ureteral stent place , admitted 09/24-10/07 with severe sepsis secondary to Kim albicans UTI, treated with Fluconazole. Readmitted 10/19 with another episode of UTI, now due to E. coli and Enterococcus, no Kim growing in cultures. - Continue Ampicillin and Fluconazole - will d/w ID length of therapy. - Will d/w Urology if she should have Mcwilliams on discharge or should return to straight cath x 8 times/day as before. - ID input appreciated - (4) Hypokalemia Comment: - Replete. (5) Hypomagnesemia Comment: - Replete. (6) Pressure ulcer Comment: - Stage II pressure ulcers present on admission. - Right buttock wound measures 1cm x 1.5 cm x .1 cm and left buttock wound measures 2.9 cm x 2.4 cm x .1 cm. Wound care input appreciated - recommend continuing with xeroform dressing, change every other day and as needed for soiling. Air mattress with frequent turning and repositioning. (7) DM2 (diabetes mellitus, type 2) Comment: - Glipizide on hold. Continue Lispro SS. (8) Multiple sclerosis Comment: - Continue Baclofen and Tegretop (for muscle spasms, not seizures). (9) Neurogenic bladder Comment: - Secondary to MS. - Keep Mcwilliams for now, will discuss straight cath at home with Urology. - Continue Oxybutynin. (10) Breast CA Comment: - Continue Arimidex. (11) DVT prophylaxis Comment: - SQ heparin. (12) Full code status Status and Disposition: Inpatient. updated at bedside.
[2018-10-23] MEDS: Fluconazole 400 MG IVPREMIX(*) 400 MG/200 ML BAG IVPB SCH (11:33)
[2018-10-23] MEDS: CMCS:Anastrozole (NF) 1 MG TAB PO SCH (12:37)
[2018-10-23] MEDS: Cholecalciferol TAB* 1000 UNITS PO SCH (16:55)
[2018-10-23] MEDS ORDERED: PROCHLORPERAZINE INJ 5 MG/ML 2 ML VIAL IV PRN (18:22)
--- NOTE | 2018-10-23 18:49 | PN ---
Hospitalist Progress Note Date of Service: 10/23/18 Called by RN because patient had some abdominal pain and vomited earlier. BP is elevated now, likely secondary to pain. Mcwilliams is draining well. Will give Clinton and monitor.
[2018-10-23] MEDS ORDERED: hydrALAZINE IV* 20 MG/ML VIAL IV SLOW PU PRN (23:23)
[2018-10-23] MEDS ORDERED: NS 0.9% 1000 ML** 1,000 ML IV SCH (23:30)
[2018-10-24] MEDS: Atorvastatin* 40 MG TAB PO SCH ×2 (00:21→20:36)
[2018-10-24] MEDS: Baclofen TAB* 10 MG PO SCH ×5 (00:21→20:35)
[2018-10-24] MEDS: carBAMazepine TAB(*) 200 MG PO SCH ×3 (00:22→20:35)
[2018-10-24] MEDS: Oxybutynin TAB* 5 MG PO SCH ×3 (00:25→20:36)
[2018-10-24] MEDS: Ampicillin ADVAN(*) 2 GM in NS 0.9% 100 ML* 100 ML IVPB SCH ×4 (04:20→22:05)
[2018-10-24] MEDS ORDERED: Metoprolol Tartrate IV* 1 MG/ML 5 ML VIAL IV PRN (04:24)
[2018-10-24] MEDS: Heparin VIAL(*) 5000 UNITS/ML VIAL (FIVE THOUSAND) SUBCUT SCH ×3 (05:10→22:02)
[2018-10-24] MEDS: Morphine INJ* 2 MG/ML 1 ML SYRINGE (TWO MG - NEW SYRINGE VERSION) IV PRN ×2 (05:19→20:36)
[2018-10-24 08:15] LABS: ABS Basophils 0.1 10^3/ul (0-0.2); ABS Eosinophils 0.1 10^3/ul (0-0.6); ABS Lymphocytes 0.5 10^3/ul (1.0-4.8); ABS Monocytes 0.6 10^3/ul (0-0.8); ABS Neutrophils 8.4 10^3/ul (1.5-7.7); ABS Nucleated RBC 0 10^3/ul; Eosinophil % 0.8 %; Hematocrit 36 % (35-47); Hemoglobin 11.9 g/dl (12.0-16.0); Lymphocyte % 4.8 %; Mean Corpuscular HGB Conc 34 g/dl (31-36); Mean Corpuscular Hemoglobin 31 pg (27-31); Mean Corpuscular Volume 92 fL (80-97); Mean Platelet Volume 7.8 fL (7.4-10.4); Nucleated Red Blood Cells % 0.1; Platelet Count 215 10^3/ul (150-450); Red Blood Count 3.87 10^6/ul (4.00-5.40); Red Cell Distribution Width 15 % (10.5-15); White Blood Count 9.6 10^3/ul (3.5-10.8)
[2018-10-24 08:29] LABS: BUN/Creatinine Ratio 16.2 (8-20); Calcium 8.4 mg/dL (8.6-10.3); EGFR African American 104.4 (>60); EGFR Non-African American 86.3 (>60); Magnesium 1.6 mg/dL (1.9-2.7); Potassium 3.2 mmol/L (3.5-5.0)
[2018-10-24] MEDS: Multivitamins/Minerals TAB PO SCH (08:42)
[2018-10-24] MEDS: Insulin LISPRO* 1 UNITS UNIT SUBCUT SCH ×4 (08:42→20:35)
[2018-10-24] MEDS ORDERED: Magnesium Sulfate 2 GM IV* 2 GM/50 ML BAG IVPB ONE (08:45)
[2018-10-24] MEDS: KCL 10 MEQ/50 ML IVPREMIX* 10 MEQ/50 ML BAG IV SCH ×3 (09:46→13:14)
[2018-10-24] MEDS: Fluconazole 400 MG IVPREMIX(*) 400 MG/200 ML BAG IVPB SCH (10:35)
[2018-10-24] MEDS: CMCS:Anastrozole (NF) 1 MG TAB PO SCH (11:36)
[2018-10-24] MEDS: Polyethylene Glycol 3350* 17 GM PACKET PO SCH ×2 (11:45→20:37)
--- NOTE | 2018-10-24 12:35 | PN ---
Subjective Date of Service: 10/24/18 Interval History: HOSPITALIST PROGRESS NOTE Patient seen and examined at bedside. Care reviewed and d/w Laura Ma RN. Last night events noted. She feels much better today after 2 large BMs. No more abdominal pain, N/V, wants to eat. Family History: Unchanged from Admission Social History: Unchanged from Admission Past Medical History: Unchanged from Admission Objective Active Medications: Acetaminophen (Tylenol Tab*) 650 mg PO Q4H PRN PRN Reason: FEVER/PAIN Last Admin: 10/22/18 21:20 Dose: 650 mg Hydrocodone Bitart/Acetaminophen ([place] 5-325 Tab*) 1 tab PO Q6H PRN PRN Reason: PAIN Last Admin: 10/23/18 18:50 Dose: 1 tab Anastrozole (Arimidex (Nf)) 1 mg PO 1200 [facility] Last Admin: 10/24/18 11:36 Dose: 1 mg Atorvastatin Calcium (Lipitor*) 40 mg PO BEDTIME [facility] Last Admin: 10/24/18 00:21 Dose: Not Given Baclofen (Lioresal Tab*) 20 mg PO QID [facility] Last Admin: 10/24/18 12:12 Dose: 20 mg Bisacodyl (Dulcolax Ec Tab*) 5 mg PO BEDTIME [facility] Carbamazepine (Tegretol Tab(*)) 200 mg PO BID [facility] Last Admin: 10/24/18 08:42 Dose: 200 mg Cholecalciferol (Vitamin D Tab*) 1,000 units PO QPM [facility] Last Admin: 10/23/18 16:55 Dose: 1,000 units Dextrose (D50w Syringe 50 Ml*) 12.5 gm IV PUSH .FOR FS < 60 - SS PRN PRN Reason: FS < 60 Heparin Sodium (Porcine) (Heparin Vial(*)) 5,000 units SUBCUT Q8HR [facility] Last Admin: 10/24/18 12:12 Dose: 5,000 units Heparin Sodium (Porcine) (Heparin Flush Picc/Ml/Cvc(*)) 1 ml FLUSH 0600,1800 [facility]; Protocol Last Admin: 10/24/18 05:30 Dose: Not Given Fluconazole/Sodium Chloride (Diflucan 400 Mg Ivpremix(*)) 400 mg in 200 mls @ 100 mls/hr IVPB Q24H [facility] Last Admin: 10/24/18 10:35 Dose: 100 mls/hr Ampicillin Sodium 2 gm/ Sodium (Chloride) 100 mls @ 200 mls/hr IVPB Q6H [facility] Last Admin: 10/24/18 09:01 Dose: 200 mls/hr Insulin Human Lispro (Humalog*) 0 units SUBCUT ACHS [facility]; Protocol Last Admin: 10/24/18 12:12 Dose: 4 unit Metoprolol Tartrate (Lopressor Iv*) 5 mg IV Q6H PRN PRN Reason: BLOOD PRESSURE Last Admin: 10/24/18 05:10 Dose: 5 mg Morphine Sulfate (Morphine Inj ((Syringe))*) 1 mg IV Q1H PRN PRN Reason: SEVERE PAIN Last Admin: 10/24/18 05:19 Dose: 1 mg Multivitamins/Minerals (Theragran/Minerals Tab*) 1 tab PO QAM [facility] Last Admin: 10/24/18 08:42 Dose: 1 tab Nystatin (Nystatin Top Powder*) 1 applic TOPICAL TID PRN PRN Reason: RASH Last Admin: 10/22/18 12:38 Dose: 1 applic Ondansetron HCl (Zofran Inj*) 4 mg IV Q4H PRN PRN Reason: NAUSEA/VOMITING Last Admin: 10/23/18 23:39 Dose: 4 mg Oxybutynin Chloride (Ditropan Tab*) 5 mg PO BID [facility] Last Admin: 10/24/18 08:42 Dose: 5 mg Polyethylene Glycol/Electrolytes (Miralax*) 17 gm PO 0800,2100 [facility] Last Admin: 10/24/18 11:45 Dose: Not Given Prochlorperazine Edisylate (Compazine Inj*) 5 mg IV Q6H PRN PRN Reason: NAUSEA/VOMITING Last Admin: 10/23/18 19:26 Dose: 5 mg Vital Signs - 8 hr 10/24/18 10/24/18 10/24/18 05:19 05:56 06:00 Temperature Pulse Rate 100 101 Respiratory 22 16 16 Rate Blood Pressure 160/82 160/82 (mmHg) O2 Sat by Pulse 94 Oximetry 10/24/18 10/24/18 10/24/18 07:30 08:00 11:45 Temperature 98.0 F 99.2 F Pulse Rate 108 110 Respiratory 24 20 16 Rate Blood Pressure 155/87 170/84 (mmHg) O2 Sat by Pulse 96 98 Oximetry Oxygen Devices in Use Now: Nasal Cannula Appearance: Elderly lady lying in bed in NAD. Eyes: No Scleral Icterus Ears/Nose/Mouth/Throat: Mucous Membranes Moist Neck: Trachea Midline Respiratory: Symmetrical Chest Expansion and Respiratory Effort, Clear to Auscultation Cardiovascular: RRR - Normal S1 and S2 Abdominal: - - Soft, NT, ND, BS+ Neurological: Alert and Oriented x 3 Result Diagrams: 10/24/18 08:01 10/24/18 08:01 Assess/Plan/Problems-Billing Assessment: Mrs Em is a 68 yo F with PMH of type 2 DM, breast CA, MS, neurogenic bladder ( straight caths 8x/day), recurrent UTIs with recent hospital stay with obstructing ureteral stone, kim UTI s/p ureteral stent placement who presented to ED with altered MS, found to have another episode of UTI. - Patient Problems (1) SBO (small bowel obstruction) Comment: - Developed symptoms c/w SBO last night with abdominal pain, distention , N/V. KUB showed some bowel distention; NGT placed with drainage >1000ml bilious fluid. - Had 2 very large BMs today, with improvement of symptoms. - D/c NGT. - Trial of PO diet. - Will start bowel regimen. Last BM had been yesterday morning, but she still had large amount of stool. (2) Sepsis Comment: - Present on admission, now resolved. - Source is E. coli and E. faecalis UTI, present on admission, not Mcwilliams catheter related. (3) Toxic metabolic encephalopathy Comment: - In setting of sepsis - improving. (4) UTI (urinary tract infection) Comment: - Complicated urological history - known neurogenic bladder associated with MS, straight cath 8 times/day at home. Had left ureteral stent place , admitted 09/24-10/07 with severe sepsis secondary to Kim albicans UTI, treated with Fluconazole. Readmitted 10/19 with another episode of UTI, now due to E. coli and Enterococcus, no Kim growing in cultures. - Continue Ampicillin and Fluconazole - requested ID input re: length of therapy. - D/w Urology (Dr Eaton) recommended d/c Mcwilliams and resume straight cath x 8 times/day as before when patient physically able to do it. (5) Hypokalemia Comment: - Replete. (6) Hypomagnesemia Comment: - Replete. (7) Pressure ulcer Comment: - Stage II pressure ulcers present on admission. - Right buttock wound measures 1cm x 1.5 cm x .1 cm and left buttock wound measures 2.9 cm x 2.4 cm x .1 cm. Wound care input appreciated - recommend continuing with xeroform dressing, change every other day and as needed for soiling. Air mattress with frequent turning and repositioning. (8) DM2 (diabetes mellitus, type 2) Comment: - Glipizide on hold. Continue Lispro SS. (9) Multiple sclerosis Comment: - Continue Baclofen and Tegretol (for muscle spasms, not seizures). (10) Neurogenic bladder Comment: - Secondary to MS. - D/w Urology (Dr Eaton) recommended d/c Mcwilliams and resume straight cath x 8 times/day as before when patient physically able to do it. - Continue Oxybutynin. (11) Breast CA Comment: - Continue Arimidex. (12) DVT prophylaxis Comment: - SQ heparin. (13) Full code status Status and Disposition: Inpatient. updated at bedside.
[2018-10-24] MEDS: Cholecalciferol TAB* 1000 UNITS PO SCH (17:30)
[2018-10-24] MEDS: Bisacodyl EC TAB* 5 MG PO SCH (20:35)
[2018-10-25] MEDS: Ampicillin ADVAN(*) 2 GM in NS 0.9% 100 ML* 100 ML IVPB SCH ×4 (04:14→22:15)
[2018-10-25] MEDS: Heparin VIAL(*) 5000 UNITS/ML VIAL (FIVE THOUSAND) SUBCUT SCH ×3 (05:12→22:15)
[2018-10-25 06:49] LABS: EGFR Non-African American 101.7 (>60); Potassium 3.2 mmol/L (3.5-5.0)
[2018-10-25] MEDS ORDERED: Potassium Chlor TAB* 20 MEQ TAB.ER PO ONE (07:04)
[2018-10-25 07:53] LABS: Magnesium 1.8 mg/dL (1.9-2.7)
[2018-10-25] MEDS: Polyethylene Glycol 3350* 17 GM PACKET PO SCH ×2 (09:11→21:20)
[2018-10-25] MEDS: KCL 10 MEQ/50 ML IVPREMIX* 10 MEQ/50 ML BAG IV SCH ×3 (09:12→12:20)
[2018-10-25] MEDS: Insulin LISPRO* 1 UNITS UNIT SUBCUT SCH ×4 (09:13→22:12)
[2018-10-25] MEDS: Baclofen TAB* 10 MG PO SCH ×4 (09:14→21:19)
[2018-10-25] MEDS: carBAMazepine TAB(*) 200 MG PO SCH ×2 (09:14→21:20)
[2018-10-25] MEDS: Oxybutynin TAB* 5 MG PO SCH ×2 (09:15→21:20)
[2018-10-25] MEDS: Multivitamins/Minerals TAB PO SCH (09:15)
[2018-10-25] MEDS: Fluconazole 400 MG IVPREMIX(*) 400 MG/200 ML BAG IVPB SCH (10:47)
--- NOTE | 2018-10-25 12:00 | PN ---
Subjective Date of Service: 10/25/18 Interval History: HOSPITALIST PROGRESS NOTE Patient seen and examined at bedside. Care reviewed and d/w Laura Ma RN. She feels a little better today. No further episodes of abdominal pain, frequent large soft BMs. No N/V, tolerating diet. Family History: Unchanged from Admission Social History: Unchanged from Admission Past Medical History: Unchanged from Admission Objective Active Medications: Acetaminophen (Tylenol Tab*) 650 mg PO Q4H PRN PRN Reason: FEVER/PAIN Last Admin: 10/22/18 21:20 Dose: 650 mg Hydrocodone Bitart/Acetaminophen ([place] 5-325 Tab*) 1 tab PO Q6H PRN PRN Reason: PAIN Last Admin: 10/23/18 18:50 Dose: 1 tab Anastrozole (Arimidex (Nf)) 1 mg PO 1200 [facility] [place] Last Admin: 10/24/18 11:36 Dose: 1 mg Atorvastatin Calcium (Lipitor*) 40 mg PO BEDTIME [facility] Last Admin: 10/24/18 20:36 Dose: 40 mg Baclofen (Lioresal Tab*) 20 mg PO QID [facility] Last Admin: 10/25/18 09:14 Dose: 20 mg Bisacodyl (Dulcolax Ec Tab*) 5 mg PO BEDTIME [facility] Last Admin: 10/24/18 20:35 Dose: 5 mg Carbamazepine (Tegretol Tab(*)) 200 mg PO BID [facility] Last Admin: 10/25/18 09:14 Dose: 200 mg Cholecalciferol (Vitamin D Tab*) 1,000 units PO QPM [facility] Last Admin: 10/24/18 17:30 Dose: 1,000 units Dextrose (D50w Syringe 50 Ml*) 12.5 gm IV PUSH .FOR FS < 60 - SS PRN PRN Reason: FS < 60 Heparin Sodium (Porcine) (Heparin Vial(*)) 5,000 units SUBCUT Q8HR [facility] [place] Last Admin: 10/25/18 05:12 Dose: 5,000 units Heparin Sodium (Porcine) (Heparin Flush Picc/Ml/Cvc(*)) 1 ml FLUSH 0600,1800 [facility]; Protocol Last Admin: 10/25/18 05:31 Dose: 1 ml Fluconazole/Sodium Chloride (Diflucan 400 Mg Ivpremix(*)) 400 mg in 200 mls @ 100 mls/hr IVPB Q24H [facility] Last Admin: 10/25/18 10:47 Dose: 100 mls/hr Ampicillin Sodium 2 gm/ Sodium (Chloride) 100 mls @ 200 mls/hr IVPB Q6H [facility] [place] Last Admin: 10/25/18 10:47 Dose: 200 mls/hr Insulin Human Lispro (Humalog*) 0 units SUBCUT ACHS [facility] [place]; Protocol Last Admin: 10/25/18 09:13 Dose: 2 unit Metoprolol Tartrate (Lopressor Iv*) 5 mg IV Q6H PRN PRN Reason: BLOOD PRESSURE Last Admin: 10/24/18 05:10 Dose: 5 mg Morphine Sulfate (Morphine Inj ((Syringe))*) 1 mg IV Q1H PRN PRN Reason: SEVERE PAIN Last Admin: 10/24/18 20:36 Dose: 1 mg Multivitamins/Minerals (Theragran/Minerals Tab*) 1 tab PO QAM [facility] [place] Last Admin: 10/25/18 09:15 Dose: 1 tab Nystatin (Nystatin Top Powder*) 1 applic TOPICAL TID PRN PRN Reason: RASH Last Admin: 10/22/18 12:38 Dose: 1 applic Ondansetron HCl (Zofran Inj*) 4 mg IV Q4H PRN PRN Reason: NAUSEA/VOMITING Last Admin: 10/23/18 23:39 Dose: 4 mg Oxybutynin Chloride (Ditropan Tab*) 5 mg PO BID [facility] [place] Last Admin: 10/25/18 09:15 Dose: 5 mg Polyethylene Glycol/Electrolytes (Miralax*) 17 gm PO 0800,2100 [facility] Last Admin: 10/25/18 09:11 Dose: Not Given Prochlorperazine Edisylate (Compazine Inj*) 5 mg IV Q6H PRN PRN Reason: NAUSEA/VOMITING Last Admin: 10/23/18 19:26 Dose: 5 mg Vital Signs - 8 hr 10/25/18 10/25/18 10/25/18 07:22 07:41 08:00 Temperature 98.4 F 98.5 F Pulse Rate 96 96 Respiratory 17 18 18 Rate Blood Pressure 147/83 144/81 (mmHg) O2 Sat by Pulse 97 96 Oximetry Oxygen Devices in Use Now: Nasal Cannula Appearance: Elderly lady sitting up in bed in [facility]. Eyes: No Scleral Icterus Ears/Nose/Mouth/Throat: Mucous Membranes Moist Neck: Trachea Midline Respiratory: Symmetrical Chest Expansion and Respiratory Effort, Clear to Auscultation Cardiovascular: RRR - Normal S1 and S2 Abdominal: NL Sounds; No Tenderness; No Distention Neurological: Alert and Oriented x 3 Result Diagrams: 10/24/18 08:01 10/25/18 05:39 Assess/Plan/Problems-Billing Assessment: Mrs Em is a 68 yo F with PMH of type 2 DM, breast CA, MS, neurogenic bladder ( straight caths 8x/day), recurrent UTIs with recent hospital stay with obstructing ureteral stone, kim UTI s/p ureteral stent placement who presented to ED with altered MS, found to have another episode of UTI. - Patient Problems (1) SBO (small bowel obstruction) Comment: - Developed symptoms c/w SBO 10/23/18 with abdominal pain, distention, N/V. KUB showed some bowel distention; NGT placed with drainage >1000ml bilious fluid. - Resolved. - Continue bowel regimen. (2) Sepsis Comment: - Present on admission, now resolved. - Source is E. coli and E. faecalis UTI, present on admission, not Mcwilliams catheter related. (3) Toxic metabolic encephalopathy Comment: - In setting of sepsis - improving. (4) UTI (urinary tract infection) Comment: - Complicated urological history - known neurogenic bladder associated with MS, straight cath 8 times/day at home. Had left ureteral stent place , admitted 09/24-10/07 with severe sepsis secondary to Kim albicans UTI, treated with Fluconazole. Readmitted 10/19 with another episode of UTI, now due to E. coli and Enterococcus, no Kim growing in cultures. - Continue Ampicillin and Fluconazole - requested ID input re: length of therapy. - D/w Urology (Dr Eaton) recommended d/c Mcwilliams and resume straight cath x 8 times/day as before when patient physically able to do it. Not able to do it today. (5) Hypokalemia Comment: - Replete. (6) Hypomagnesemia Comment: - Replete. (7) Pressure ulcer Comment: - Stage II pressure ulcers present on admission. - Right buttock wound measures 1cm x 1.5 cm x .1 cm and left buttock wound measures 2.9 cm x 2.4 cm x .1 cm. Wound care input appreciated - recommend continuing with xeroform dressing, change every other day and as needed for soiling. Air mattress with frequent turning and repositioning. (8) DM2 (diabetes mellitus, type 2) Comment: - Glipizide on hold. Continue Lispro SS. (9) Multiple sclerosis Comment: - Continue Baclofen and Tegretol (for muscle spasms, not seizures). (10) Neurogenic bladder Comment: - Secondary to MS. - D/w Urology (Dr Eaton) recommended d/c Mcwilliams and resume straight cath x 8 times/day as before when patient physically able to do it. - Continue Oxybutynin. (11) Breast CA Comment: - Continue Arimidex. (12) DVT prophylaxis Comment: - SQ heparin. (13) Full code status Status and Disposition: Inpatient. updated at bedside. Anticipate d/c home in the next 1-2 days with VNS and follow up at Wound clinic if she continues to improve.
[2018-10-25] MEDS: CMCS:Anastrozole (NF) 1 MG TAB PO SCH (12:20)
[2018-10-25] MEDS: Magnesium Oxide TAB* 400 MG PO SCH (12:27)
[2018-10-25] MEDS: HYDROcodone/ACETAMIN 5-325 MG* 1 TAB PO PRN ×2 (16:43→23:10)
[2018-10-25] MEDS: Cholecalciferol TAB* 1000 UNITS PO SCH (17:30)
[2018-10-25] MEDS: Morphine INJ* 2 MG/ML 1 ML SYRINGE (TWO MG - NEW SYRINGE VERSION) IV PRN (20:49)
[2018-10-25] MEDS: Atorvastatin* 40 MG TAB PO SCH (21:19)
[2018-10-25] MEDS: Bisacodyl EC TAB* 5 MG PO SCH (21:20)
[2018-10-26] MEDS ORDERED: Metoprolol Tartrate IV* 1 MG/ML 5 ML VIAL IV PRN (01:08)
[2018-10-26] MEDS: Ampicillin ADVAN(*) 2 GM in NS 0.9% 100 ML* 100 ML IVPB SCH ×4 (04:14→21:47)
[2018-10-26] MEDS: HYDROcodone/ACETAMIN 5-325 MG* 1 TAB PO PRN (04:22)
[2018-10-26] MEDS: Heparin VIAL(*) 5000 UNITS/ML VIAL (FIVE THOUSAND) SUBCUT SCH ×3 (05:26→21:47)
[2018-10-26] MEDS: Polyethylene Glycol 3350* 17 GM PACKET PO SCH ×2 (08:36→20:50)
[2018-10-26] MEDS: Insulin LISPRO* 1 UNITS UNIT SUBCUT SCH ×4 (09:41→20:53)
[2018-10-26] MEDS: Multivitamins/Minerals TAB PO SCH (09:42)
[2018-10-26] MEDS: Baclofen TAB* 10 MG PO SCH ×4 (09:42→20:49)
[2018-10-26] MEDS: Oxybutynin TAB* 5 MG PO SCH ×2 (09:42→20:50)
[2018-10-26] MEDS: carBAMazepine TAB(*) 200 MG PO SCH ×2 (09:43→20:50)
[2018-10-26] MEDS: Potassium Chlor TAB* 20 MEQ TAB.ER PO SCH (09:43)
[2018-10-26] MEDS: Magnesium Oxide TAB* 400 MG PO SCH (09:43)
[2018-10-26] MEDS: Fluconazole 400 MG IVPREMIX(*) 400 MG/200 ML BAG IVPB SCH (10:18)
--- NOTE | 2018-10-26 10:25 | CONSULT ---
Subjective Date of Service: 10/26/18 Interval History: Ms. Em is a 68 yo F with PMH of type 2 DM, breast CA, MS, neurogenic bladder ( straight caths 8x/day), recurrent UTIs with recent hospital stay with obstructing ureteral stone, leelee UTI s/p ureteral stent placement who presented to ED with altered MS, found to have another episode of UTI. She presented to the hospital with a stage 2 pressure injury. Patient seen and examined at bedside. Ms. Em has no complaints at this time. Family History: Unchanged from Admission Social History: Unchanged from Admission Past Medical History: Unchanged from Admission Review of Systems - Measurements Intake and Output: Intake and Output Last 24 Hours 10/24/18 10/25/18 10/26/18 10/27/18 06:59 06:59 06:59 06:59 Intake Total 960 1966 2742 120 Output Total 2350 1275 1840 Balance -1390 691 902 120 Intake: IV Fluids 1008 235 ns 1008 235 IVPB 073 826 9709 Ampicillin 100 210 218 Fluconazole 200 215 210 KCL 173 170 ns 200 529 Oral 004 876 8342 120 Output: Urine 600 Mcwilliams 2350 1275 1240 Other: Estimated Void Large Date of Last Bowel [id number] Movement # Bowel Movements 0 1 0 Estimated Stool Amount Large Large # Voids 1 - Review of Systems Constitutional Symptoms: Negative: Fever, Other - Chills Dermatology: Positive: Other - Skin breakdown to buttocks Pulmonary: Negative: Shortness of Breath Objective Active Medications: Acetaminophen (Tylenol Tab*) 650 mg PO Q4H PRN Reason: FEVER/PAIN Hydrocodone Bitart/Acetaminophen ([place] 5-325 Tab*) 1 tab PO Q6H PRN Reason: PAIN Anastrozole (Arimidex (Nf)) 1 mg PO 1200 [facility] Atorvastatin Calcium (Lipitor*) 40 mg PO BEDTIME [facility] Baclofen (Lioresal Tab*) 20 mg PO QID [facility] Bisacodyl (Dulcolax Ec Tab*) 5 mg PO BEDTIME SIMÓ[facility] Carbamazepine (Tegretol Tab(*)) 200 mg PO BID [facility] Cholecalciferol (Vitamin D Tab*) 1,000 units PO QPM [facility] Dextrose (D50w Syringe 50 Ml*) 12.5 gm IV PUSH .FOR FS < 60 - SS PRN Reason: FS < 60 Heparin Sodium (Porcine) (Heparin Vial(*)) 5,000 units SUBCUT Q8HR [facility] Heparin Sodium (Porcine) (Heparin Flush Picc/Ml/Cvc(*)) 1 ml FLUSH 0600,1800 [facility]; Protocol Fluconazole/Sodium Chloride (Diflucan 400 Mg Ivpremix(*)) 400 mg in 200 mls @ 100 mls/hr IVPB Q24H [facility] Ampicillin Sodium 2 gm/ Sodium (Chloride) 100 mls @ 200 mls/hr IVPB Q6H [facility] Insulin Human Lispro (Humalog*) 0 units SUBCUT ACHS [facility]; Protocol Magnesium Oxide (Magox 400 Tab*) 800 mg PO DAILY [facility] Metoprolol Tartrate (Lopressor Iv*) 5 mg IV Q6H PRN Reason: BLOOD PRESSURE Morphine Sulfate (Morphine Inj ((Syringe))*) 1 mg IV Q1H PRN Reason: SEVERE PAIN Multivitamins/Minerals (Theragran/Minerals Tab*) 1 tab PO QAM [facility] Nystatin (Nystatin Top Powder*) 1 applic TOPICAL TID PRN Reason: RASH Ondansetron HCl (Zofran Inj*) 4 mg IV Q4H PRN Reason: NAUSEA/VOMITING Oxybutynin Chloride (Ditropan Tab*) 5 mg PO BID [facility] Polyethylene Glycol/Electrolytes (Miralax*) 17 gm PO 0800,2100 [facility] Potassium Chloride (Klor Con Er Tab*) 20 meq PO DAILY [facility] Prochlorperazine Edisylate (Compazine Inj*) 5 mg IV Q6H PRN Reason: NAUSEA/ VOMITING Vital Signs - 8 hr 10/26/18 10/26/18 10/26/18 03:37 04:22 05:45 Temperature 98.1 F 97.4 F Pulse Rate 87 83 Respiratory 18 16 18 Rate Blood Pressure 136/71 151/86 (mmHg) O2 Sat by Pulse 95 93 Oximetry 10/26/18 08:00 Temperature Pulse Rate Respiratory 17 Rate Blood Pressure (mmHg) O2 Sat by Pulse Oximetry Oxygen Devices in Use Now: Nasal Cannula Appearance: NAD, laying in bed Ears/Nose/Mouth/Throat: Mucous Membranes Moist Neurological: Alert and Oriented x 3 Nutrition: Taking PO's Result Diagrams: 10/24/18 08:01 10/25/18 05:39 Microbiology and Other Data: Microbiology 10/19/18 11:01 Urine Urine Culture - Preliminary Escherichia Coli Enterococcus Faecalis 10/19/18 10:19 Blood Venous Aerobic Blood Culture - Preliminary No Growth Day 2 10/19/18 10:19 Blood Venous Anaerobic Blood Culture - Preliminary No Growth Day 2 10/19/18 10:19 Blood Venous Aerobic Blood Culture - Preliminary No Growth Day 2 10/19/18 10:19 Blood Venous Anaerobic Blood Culture - Preliminary No Growth Day 2 Skin Deviation Note - Skin Deviation Findings Buttocks wounds. The right buttock wound measures 5 cm x 6 cm x .1 cm with red granulated wound bed. Edges are thick. Periwound skin is pink in color and nonblanchable. Left buttock wound measures 5.5 cm x 3.8 cm x 0.1 cm. Wound bed is red granulation tissue. There is some black eschar present in between the 2 wounds. No drainage noted to either wound. There is also some scattered erythema to the posterior upper thighs and groin area. Wound Problem/Plan Assessment: Ms. Em is a 68 yo F with PMH of type 2 DM, breast CA, MS, neurogenic bladder ( straight caths 8x/day), recurrent UTIs with recent hospital stay with obstructing ureteral stone, leleee UTI s/p ureteral stent placement who presented to ED with altered MS, found to have another episode of UTI. Is Patient a Wound Clinic Patient: No - Patient Problems (1) Pressure ulcer Code(s): L89.90 - PRESSURE ULCER OF UNSPECIFIED SITE, UNSPECIFIED STAGE SNOMED Code(s): 528686139 Comment: - Stage II sacral pressure injury present on admission - Recommend continuing with xeroform dressing, change every other day and as needed for soiling - Air mattress with frequent turning and repositioning - Should be referred to the wound clinic on discharge (2) DM2 (diabetes mellitus, type 2) Comment: - Management per Hospital Medicine - Maintain good glycemic control to allow for wound healing (3) DVT prophylaxis Code(s): NWA6795 - SNOMED Code(s): 688758717 Comment: SQ heparin (4) Full code status Code(s): Z78.9 - OTHER SPECIFIED HEALTH STATUS SNOMED Code(s): 816822478 Status and Disposition: Inpatient. Disposition per Primary Medicine Team. Follow up at Wound clinic after discharge. Points of Discussion: Time for this wound consultation was 25 minutes, and 15 minutes was spent with the patient discussing past medical history, assessing, measuring and photographing wounds. Attending: Tamar Ramsey
[2018-10-26] MEDS: CMCS:Anastrozole (NF) 1 MG TAB PO SCH (12:36)
[2018-10-26] MEDS: Artificial Tears* 15 ML BTL BOTH EYES PRN ×2 (15:44→20:49)
[2018-10-26] MEDS: Cholecalciferol TAB* 1000 UNITS PO SCH (17:41)
--- NOTE | 2018-10-26 20:08 | PN ---
Subjective Date of Service: 10/26/18 Interval History: Pt is feeling ok, still weak though. She has not attempted to straight cath in a while, she needs to do this prior to going home. Her thinks she is not quite back to her baseline. Family History: Unchanged from Admission Social History: Unchanged from Admission Past Medical History: Unchanged from Admission Objective Active Medications: Acetaminophen (Tylenol Tab*) 650 mg PO Q4H PRN PRN Reason: FEVER/PAIN Last Admin: 10/22/18 21:20 Dose: 650 mg Anastrozole (Arimidex (Nf)) 1 mg PO 1200 [facility] Last Admin: 10/26/18 12:36 Dose: 1 mg Atorvastatin Calcium (Lipitor*) 40 mg PO BEDTIME [facility] Last Admin: 10/25/18 21:19 Dose: 40 mg Baclofen (Lioresal Tab*) 20 mg PO QID [facility] Last Admin: 10/26/18 17:41 Dose: 20 mg Bisacodyl (Dulcolax Ec Tab*) 5 mg PO BEDTIME [facility] Last Admin: 10/25/18 21:20 Dose: Not Given Carbamazepine (Tegretol Tab(*)) 200 mg PO BID [facility] Last Admin: 10/26/18 09:43 Dose: 200 mg Cholecalciferol (Vitamin D Tab*) 1,000 units PO QPM [facility] Last Admin: 10/26/18 17:41 Dose: 1,000 units Dextrose (D50w Syringe 50 Ml*) 12.5 gm IV PUSH .FOR FS < 60 - SS PRN PRN Reason: FS < 60 Heparin Sodium (Porcine) (Heparin Vial(*)) 5,000 units SUBCUT Q8HR [facility] Last Admin: 10/26/18 12:36 Dose: 5,000 units Heparin Sodium (Porcine) (Heparin Flush Picc/Ml/Cvc(*)) 1 ml FLUSH 0600,1800 [facility]; Protocol Last Admin: 10/26/18 17:58 Dose: Not Given Fluconazole/Sodium Chloride (Diflucan 400 Mg Ivpremix(*)) 400 mg in 200 mls @ 100 mls/hr IVPB Q24H [facility] Last Admin: 10/26/18 10:18 Dose: 100 mls/hr Ampicillin Sodium 2 gm/ Sodium (Chloride) 100 mls @ 200 mls/hr IVPB Q6H [facility] Last Admin: 10/26/18 16:49 Dose: 200 mls/hr Insulin Human Lispro (Humalog*) 0 units SUBCUT ACHS [facility]; Protocol Last Admin: 10/26/18 16:51 Dose: Not Given Magnesium Oxide (Magox 400 Tab*) 800 mg PO DAILY [facility] Last Admin: 10/26/18 09:43 Dose: 800 mg Metoprolol Tartrate (Lopressor Iv*) 5 mg IV Q6H PRN PRN Reason: BLOOD PRESSURE Last Admin: 10/26/18 01:34 Dose: 5 mg Morphine Sulfate (Morphine Inj ((Syringe))*) 1 mg IV Q1H PRN PRN Reason: SEVERE PAIN Last Admin: 10/25/18 20:49 Dose: 1 mg Multivitamins/Minerals (Theragran/Minerals Tab*) 1 tab PO QAM [facility] Last Admin: 10/26/18 09:42 Dose: 1 tab Nystatin (Nystatin Top Powder*) 1 applic TOPICAL TID PRN PRN Reason: RASH Last Admin: 10/22/18 12:38 Dose: 1 applic Ondansetron HCl (Zofran Inj*) 4 mg IV Q4H PRN PRN Reason: NAUSEA/VOMITING Last Admin: 10/23/18 23:39 Dose: 4 mg Oxybutynin Chloride (Ditropan Tab*) 5 mg PO BID [facility] Last Admin: 10/26/18 09:42 Dose: 5 mg Polyethylene Glycol/Electrolytes (Miralax*) 17 gm PO 0800,2100 [facility] Last Admin: 10/26/18 08:36 Dose: Not Given Polyvinyl Alcohol (Polyvinyl Alcohol 1.4% Opth*) 1 drop BOTH EYES Q2H PRN PRN Reason: DRY EYE Last Admin: 10/26/18 15:44 Dose: 1 drop Potassium Chloride (Klor Con Er Tab*) 20 meq PO DAILY [facility] Last Admin: 10/26/18 09:43 Dose: 20 meq Prochlorperazine Edisylate (Compazine Inj*) 5 mg IV Q6H PRN PRN Reason: NAUSEA/VOMITING Last Admin: 10/23/18 19:26 Dose: 5 mg Vital Signs - 8 hr 10/26/18 10/26/18 12:49 15:05 Temperature 98.6 F Pulse Rate 91 89 Respiratory 16 Rate Blood Pressure 145/76 132/88 (mmHg) O2 Sat by Pulse 94 Oximetry Oxygen Devices in Use Now: None Appearance: Middle aged chronically ill appearing female sitting up in a chair, NAD Eyes: No Scleral Icterus Ears/Nose/Mouth/Throat: Mucous Membranes Moist Respiratory: Symmetrical Chest Expansion and Respiratory Effort, Clear to Auscultation Cardiovascular: NL Sounds; No Murmurs; No JVD, RRR Abdominal: NL Sounds; No Tenderness; No Distention Extremities: No Clubbing, Cyanosis Skin: No Nodules or Sclerosis Neurological: - - alert, slumped some to the left, her states she tends to lean to the left at home as well Result Diagrams: 10/24/18 08:01 10/25/18 05:39 Additional Lab and Data: Laboratory Results - last 24 hr 10/20/18 10/21/18 10/21/18 23:15 05:48 07:27 Sodium 138 Potassium 2.9 L Chloride 102 Carbon Dioxide 25 Anion Gap 11 BUN 8 Creatinine 0.62 Est GFR ( Amer) 116.2 Est GFR (Non-Af Amer) 96.0 BUN/Creatinine Ratio 12.9 Glucose 154 H POC Glucose (mg/dL) 150 H 154 H Calcium 8.8 Ionized Calcium Magnesium 1.2 L 10/21/18 10/21/18 07:27 12:22 Sodium Potassium Chloride Carbon Dioxide Anion Gap BUN Creatinine Est GFR ( Amer) Est GFR (Non-Af Amer) BUN/Creatinine Ratio Glucose POC Glucose (mg/dL) 170 H Calcium Ionized Calcium 1.10 L Magnesium Microbiology and Other Data: Microbiology 10/19/18 11:01 Urine Urine Culture - Preliminary Escherichia Coli Enterococcus Faecalis 10/19/18 10:19 Blood Venous Aerobic Blood Culture - Preliminary No Growth Day 2 10/19/18 10:19 Blood Venous Anaerobic Blood Culture - Preliminary No Growth Day 2 10/19/18 10:19 Blood Venous Aerobic Blood Culture - Preliminary No Growth Day 2 10/19/18 10:19 Blood Venous Anaerobic Blood Culture - Preliminary No Growth Day 2 Assess/Plan/Problems-Billing Ms. Em is a 68 yo F with PMHx of type 2 DM, breast CA, MS, neurogenic bladder (straight caths 8x/day), recurrent UTIs with recent hospital stay with obstructing ureteral stone, leelee UTI s/p ureteral stent placement who presented to ED with altered MS, found to have another episode of UTI. - Patient Problems (1) UTI (urinary tract infection) Current Visit: Yes Status: Acute Comment: The patient has a complicated urologic history and straight catheterizes at home due to frequent sensation that she needs to urinate. THe patient has been treated wt ampicillin and fluconazole based on cultures data. Ampicillin can stop tomorrow and will discuss with ID about continuing fluconazole. Wise removed and pt unable to straight cath due to weakness. May need to go home with the wise and later attempt to resume her usual schedule when she is stronger. Possible d/c home tomorrow. (2) Sacral decubitus ulcer, stage II Current Visit: Yes Status: Acute Code(s): L89.152 - PRESSURE ULCER OF SACRAL REGION, STAGE 2 SNOMED Code(s): 910812895 Comment: Continue local wound care and pressure relieving measures. (3) DM2 (diabetes mellitus, type 2) Current Visit: Yes Status: Chronic Priority: Medium Comment: Sugars have been moderately elevated. Will resume glipizide on d/c. Continue lispro sliding scale for now. (4) Multiple sclerosis Current Visit: Yes Status: Chronic Priority: High Code(s): G35 - MULTIPLE SCLEROSIS SNOMED Code(s): 13504114 Comment: Continue baclofen and tegretol (for muscle spasms, not seizures). (5) Neurogenic bladder Current Visit: Yes Status: Chronic Code(s): N31.9 - NEUROMUSCULAR DYSFUNCTION OF BLADDER, UNSPECIFIED SNOMED Code(s): 717312209 Comment: As above pt unable to physically straight cath herself today. Will likely need to leave with wise in place and attempt straight cath when stronger. (6) DVT prophylaxis Current Visit: Yes Status: Acute Priority: Medium Code(s): [id number] - SNOMED Code(s): 360797970 Comment: SQ heparin (7) Full code status Current Visit: Yes Status: Acute Code(s): Z78.9 - OTHER SPECIFIED HEALTH STATUS SNOMED Code(s): 298643400 Status and Disposition: possible d/c home tomorrow
[2018-10-26] MEDS: Bisacodyl EC TAB* 5 MG PO SCH (20:50)
[2018-10-26] MEDS: Atorvastatin* 40 MG TAB PO SCH (20:50)
[2018-10-26] MEDS: Morphine INJ* 2 MG/ML 1 ML SYRINGE (TWO MG - NEW SYRINGE VERSION) IV PRN (20:54)
[2018-10-27] MEDS: Ampicillin ADVAN(*) 2 GM in NS 0.9% 100 ML* 100 ML IVPB SCH ×2 (04:30→11:07)
[2018-10-27] MEDS: Heparin VIAL(*) 5000 UNITS/ML VIAL (FIVE THOUSAND) SUBCUT SCH ×2 (05:06→14:05)
[2018-10-27] MEDS: Insulin LISPRO* 1 UNITS UNIT SUBCUT SCH ×2 (10:34→12:24)
[2018-10-27] MEDS: Multivitamins/Minerals TAB PO SCH (10:38)
[2018-10-27] MEDS: Baclofen TAB* 10 MG PO SCH ×2 (10:38→14:05)
[2018-10-27] MEDS: carBAMazepine TAB(*) 200 MG PO SCH (10:38)
[2018-10-27] MEDS: Magnesium Oxide TAB* 400 MG PO SCH (10:38)
[2018-10-27] MEDS: Polyethylene Glycol 3350* 17 GM PACKET PO SCH (10:39)
[2018-10-27] MEDS: Potassium Chlor TAB* 20 MEQ TAB.ER PO SCH (10:39)
[2018-10-27] MEDS: Oxybutynin TAB* 5 MG PO SCH (10:39)
[2018-10-27] MEDS: Artificial Tears* 15 ML BTL BOTH EYES PRN (10:57)
[2018-10-27] MEDS: Fluconazole 400 MG IVPREMIX(*) 400 MG/200 ML BAG IVPB SCH (11:07)
[2018-10-27] MEDS ORDERED: Metoprolol Succinate XL TAB* 100 MG PO SCH (12:00)
[2018-10-27] MEDS: CMCS:Anastrozole (NF) 1 MG TAB PO SCH (12:24)
[2018-10-27] MEDS: Acetaminophen TAB* 325 MG PO PRN (14:05)
[2018-10-27 16:19] VITALS: BP 147/76
--- NOTE | 2018-10-27 21:23 | DS ---
CC: Dr. Olivares. * DISCHARGE SUMMARY: DATE OF ADMISSION: 10/19/18 DATE OF DISCHARGE: 10/27/18 PRIMARY CARE PROVIDER: Dr. Olivares. UROLOGIST: Dr. Eaton. PRINCIPAL DIAGNOSES: 1. Sepsis secondary to Escherichia coli urinary tract infection. 2. Deconditioning. 3. Stage 2 pressure ulcer to the sacrum and buttocks. SECONDARY DIAGNOSES: 1. Multiple sclerosis. 2. Neurogenic bladder. 3. Nephrolithiasis. 4. Type 2 diabetes. 5. Hypertension. DISCHARGE MEDICATIONS: 1. Vitamin D 1000 units p.o. daily. 2. Baclofen 20 mg p.o. 4 times daily. 3. Lipitor 40 mg p.o. q.h.s. 4. Anastrozole 1 mg p.o. daily. 5. Tylenol 650 mg p.o.q.6 hours p.r.n. pain. 6. Oxybutynin 5 mg p.o. b.i.d. 7. Nystatin powder one application topical t.i.d. p.r.n. kim infection. 8. Multivitamin 1 tab p.o. daily. 9. Metoprolol XL 100 mg p.o. daily. 10. Glipizide XL 5 mg p.o. b.i.d. 11. Carbamazepine 200 mg p.o. b.i.d. 12. Potassium chloride 20 mEq p.o. daily (new). 13. Magnesium oxide 800 mg p.o. daily. 14. [place] 5/325 one tab p.o. q.6 hours p.r.n. pain. 15. Artificial tears 1 drop to both eyes q.2 hours p.r.n. dryness. HOSPITAL COURSE: Ms. Em is a 68-year-old female with a history of advanced MS and a neurogenic bladder who self-catheterizes 8 times daily who presents to the emergency room with complaints of lethargy. The patient had been hospitalized from 09/24/18 through 10/07/18 for severe sepsis secondary to Kim albicans complicated urinary tract infection. The patient had a ureteral stent placement and then exchanged. She was treated with fluconazole and defervesced and discharged home on oral fluconazole. While at home before the fluconazole ended, she was noted to be developing lethargy and disorientation. She was incontinent and she began having trouble self- catheterizing. The patient was brought back in to the ER by her for evaluation. The patient was initially started on ceftriaxone for antibiotic therapy due to concerns for possible bacterial urinary tract infection and was also restarted on IV fluconazole. On the very pier hand helper of 10/20/18, the patient was noted to become febrile to 101.1 as well as become tachycardic and tachypneic. At that point, it was concerning that the patient was septic. She received IV fluids and her antibiotic coverage was broadened. The patient's urine subsequently grew E. coli. The patient was seen in consultation by Dr. Brewer who discontinued the vancomycin and Zosyn and changed the patient over to ampicillin. Ultimately, the patient received 7 days of treatment with the ampicillin. She remained on the fluconazole through her hospitalization. Dr. Brewer has recommended discontinuing the fluconazole at this point. The patient has improved in terms of her mental status. She remains weak, however. As she is improved, it was felt that she is stable for discharge home. The patient's provides all of her home care. The patient does do her own self-catheterization, however. An attempt was made on 10/26/18 for the patient to self-catheterize; however, she was unable to do so. Her believes because she is not in her typical position that she is in when she tries this at home. Mcwilliams was replaced at that point, and on 10/27/18, I discussed with the patient's about him learning how to self-catheterize. He feels that at this point he can help her if she is unable to catheterize herself. The patient also has a significant stage 2 pressure ulcer to her sacrum and buttocks. This developed during her last hospitalization. Her believes that the pressure ulcer is as bad now as it was then. She was seen by the wound team and it was recommended that Xeroform dressings continue with changing every other day and as needed for soiling. Turning and positioning is very important and this has been stressed with both the patient and her . A wound clinic referral has been made. An appointment is scheduled for 11/02/18 at a.m. The patient is now resuming all of her usual home medications. Her potassium and magnesium were low during this hospitalization and therefore she has been started on supplementation. PHYSICAL EXAMINATION: On the day of discharge, the patient is awake, alert and oriented, sitting up in bed, in no acute distress. Her cardiac exam reveals a normal S1, S2 with a regular rate and rhythm. There is no lower extremity edema. Her lung exam is clear bilaterally. Her abdomen is soft, nontender, nondistended. Her skin reveals a large pressure ulcer overlying the sacrum and the medial aspects of both buttocks. There is some slight necrotic-appearing tissue overlying part of the wound with likely devitalized skin overlying part of the wound. There is bleeding from the subcutaneous tissue noted. There is no surrounding erythema or signs of infection. FOLLOWUP CONCERNS: The patient is being discharged home today, 10/27/18. ACTIVITY LEVEL: As tolerated. DIET: Regular as tolerated. CONDITION ON DISCHARGE: Stable. The patient is to follow up with the wound center at the appointment on and with Dr. Olivares in the next 4 to 7 days. The patient and her have been instructed to monitor for signs of recurrent infection including increased lethargy, fevers or incontinence. TIME SPENT: Forty minutes was spent discharging this patient. [id number]/[facility] #: [id number] MTDD
== END 2018-10-27 16:00 | disposition home health service (06) | DRG 871 ==
LOC: ED 09:10 → MED 12:22
PROVIDERS: ADMIT Internal Medicine; ATTEND Hospitalist
PROC: 0T9B70Z Drainage of Bladder with Drainage Device, Via Natural or Artificial Opening (ICD-10-PCS; principal; 2018-10-27)
DX: A41.9 Sepsis, unspecified organism (principal); G92 Toxic encephalopathy; N39.0 Urinary tract infection, site not specified; K56.609 Unspecified intestinal obstruction, unspecified as to partial versus complete obstruction; E83.52 Hypercalcemia; L89.152 Pressure ulcer of sacral region, stage 2; N31.9 Neuromuscular dysfunction of bladder, unspecified; R33.8 Other retention of urine; B95.2 Enterococcus as the cause of diseases classified elsewhere; B96.20 Unspecified Escherichia coli [E. coli] as the cause of diseases classified elsewhere; E83.42 Hypomagnesemia; E87.6 Hypokalemia; F03.90 Unspecified dementia, unspecified severity, without behavioral disturbance, psychotic disturbance, mood disturbance, and anxiety; G40.909 Epilepsy, unspecified, not intractable, without status epilepticus; E11.9 Type 2 diabetes mellitus without complications; I10 Essential (primary) hypertension; G35 Multiple sclerosis; Z96.0 Presence of urogenital implants; Z87.442 Personal history of urinary calculi; Z85.3 Personal history of malignant neoplasm of breast; Z90.49 Acquired absence of other specified parts of digestive tract; Z88.2 Allergy status to sulfonamides; Z88.8 Allergy status to other drugs, medicaments and biological substances; Z87.891 Personal history of nicotine dependence; Z80.6 Family history of leukemia; Z79.84 Long term (current) use of oral hypoglycemic drugs
CPT/HCPCS: 36415; 70450; 71045; 74018; 74176; 80048; 80053; 80156; 81003; 81015; 82330; 83605; 83735; 84100; 84484; 85025; 85610; 87040; 87077; 87086; 87186; 93005; 99284; A9270-GY; G8978-GP-CM; G8979-GP-CM; J0360; J0610; J0696; J0780; J1450; J1644; J2270; J2405; J2543; J3370; J3475; J3480; J3490

== ENCOUNTER 2018-10-30 08:55 | Inpatient (IN) | payer MEDICARE, MEDICAID ==
--- NOTE | 2018-10-30 09:22 | ED ---
Altered Mental Status - HPI Summary HPI Summary: A 68 y/o F presents to ED with AMS. Per : pt refuses to open her eyes and will not swallow her pills; he says she is not typically like this, and at baseline she uses a wheelchair, self caths, takes her medicine; she has been in and out of the hospital for sepsis over the past three years. At bedside, pt denies pain, fever, cough, CP, SOB. Pt was [place] [facility] on 2018. She sees Dr. Eaton, urology. - History Of Current Complaint Chief Complaint: EDAltMentalStatus Stated Complaint: DISORIENTED/GENERAL Time Seen by Provider: 10/30/18 09:15 Hx Obtained From: Patient - Hx From Patient Unobtainable Due To: Altered Mental Status Onset/Duration: Still Present Timing: Constant, Lasting Days Severity Currently: Severe - Allergies/Home Medications Allergies/Adverse Reactions: Allergies Allergy/AdvReac Type Severity Reaction Status Date / Time lisinopril Allergy Mild Swelling Verified 10/30/18 09:09 Sulfa (Sulfonamide AdvReac Intermediate Unknown Verified 10/30/18 09:09 Antibiotics) Reaction Details PMH/Surg Hx/FS Hx/Imm Hx Previously Healthy: No Endocrine/Hematology History: Reports: Hx Diabetes Cardiovascular History: Reports: Hx Hypertension Denies: Hx Pacemaker/ICD GI History: Reports: Hx Gall Bladder Disease - cholecystectomy History: Reports: Hx Dialysis, Hx Kidney Infection, Hx Kidney Stones - HX OF AND CURRENTLY 09/2018, Other Problems/Disorders - HYDRONEPHROSIS Denies: Hx Renal Disease Musculoskeletal History: Reports: Other Musculoskeletal History - MS, DOES NOT AMBULATE; IN WC, sacral pressure ulcer-almost healed PER HUSBA Denies: Hx Arthritis Sensory History: Reports: Hx Contacts or Glasses - READING GLASSES Denies: Hx Hearing Aid Opthamlomology History: Reports: Hx Contacts or Glasses - READING GLASSES Neurological History: Reports: Hx Nerve Disease, Hx Seizures, Other Neuro Impairments/Disorders - MULTIPLE SCLEROSIS Denies: Hx Headaches Psychiatric History: Denies: Hx Anxiety, Hx Depression, Hx Panic Disorder - Cancer History Cancer Type, Location and Year: RIGHT BREAST CA W/ SURGICAL REMOVAL Hx Chemotherapy: No Hx Radiation Therapy: No - Surgical History Surgery Procedure, Year, and Place: CHOLECYSTECTOMY. RIGHT BREAST-LUMPECTOMY. 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 GENERAL: Patient is a well-developed and nourished, elderly female who is lying confused in the stretcher. Patient is not in any acute respiratory distress. Patient is unable to give a good hx, mostly given by . HEAD AND FACE: Normocephalic and atraumatic. EYES: PERRLA, EOMI x 2, No injected conjunctiva. EARS: Hearing grossly intact. Ear canals and tympanic membranes are WNL. MOUTH: Oropharynx within normal limits. NECK: Supple, trachea is midline, no adenopathy, no JVD. CHEST: Symmetric, no tenderness at palpation LUNGS: Clear to auscultation bilaterally. No wheezing or crackles. CVS: RRR, S1 and S2 present, no murmurs or gallops appreciated. ABDOMEN: Soft, non-tender. No signs of distention. Positive bowel sounds. No rebound, no guarding, and no masses palpated. No abdominal bruit or pulsations. EXTREMITIES: Atrophic bilateral LE secondary to her MS. NEURO: Alert and oriented x 3. No acute neurological deficits. Speech is normal. SKIN: Dry and warm Triage Information Reviewed: Yes Vital Signs On Initial Exam: Initial Vitals Temp Pulse Resp BP Pulse Ox 97.8 F 70 18 180/125 96 10/30/18 09:09 10/30/18 09:09 10/30/18 09:09 10/30/18 09:09 10/30/18 09:09 Vital Signs Reviewed: Yes - Lakesha Coma Scale Best Eye Response: 4 - Spontaneous Best Motor Response: 6 - Obeys Commands Best Verbal Response: 4 - Confused Coma Scale Total: 14 Diagnostics - Vital Signs Vital Signs Temp Pulse Resp BP Pulse Ox 10/30/18 09:09 97.8 F 70 18 180/125 96 - Laboratory Result Diagrams: 10/30/18 09:44 10/30/18 10:51 Lab Statement: Any lab studies that have been ordered have been reviewed, and results considered in the medical decision making process. - Radiology CXR Radiology Interpretation Completed By: Radiologist Summary of Radiographic Findings: IMPRESSION: No radiographic evidence for acute cardiopulmonary abnormality on this portable chest x-ray. ED provider has reviewed this report. - CT BRAIN CT CT Interpretation Completed By: Radiologist Summary of CT Findings: IMPRESSION: No definite acute intracranial abnormality on this CT of the brain limited by motion artifact. ED provider has reviewed this report. - EKG 0936 Cardiac Rate: NL - 87 bpm EKG Rhythm: Sinus Rhythm EKG Comparison: No Significant Change - from EKG on 10/19/18 Summary of EKG Findings: No ST elevation. Q wave in III and avF. Altered Mental Statu Course/Dx - Course Assessment/Plan: This patient is a 68-year-old female who presents to the emergency room with complaining that the patient is having altered mental status, confusion, unable to eat and drink and feeling as when she has sepsis. Blood test result shows a wbcs of 14.5, hemoglobin 14.2, hematocrit 43 and platelets 347. Chloride 99, glucose 184, CRP is 31.5. Urinalysis shows 3 + leukocytes, rbcs 3 +, red blood cells of 2 +, bacteria 1+ and glucose 2+. It seems that the patient has a UTI. Looking at her past sensitivities, I placed the patient on Rocephin. Chest x-ray impression: No radiographic evidence for an acute cardiopulmonary abnormality on this portable chest x-ray. It seems that the patients altered mental status could be secondary to the UTI/sepsis. Therefore, I discussed my physical exam and findings with Dr. Kearney , from the hospitalist services, who accepted the patient for admission. - Diagnoses Differential Diagnosis/HQI/PQRI: Hypoglycemia, Hypoxia, Metabolic Disorder, Sepsis Provider Diagnoses: Altered mental status, UTI (urinary tract infection), Sepsis - Provider Notifications Discussed Care Of Patient With: Emma Kearney - hospitalist Time Discussed With Above Provider: 11:50 Instructed by Provider To: Admit As Inpatient - Critical Care Time Critical Care Time: 30-74 min Discharge - Sign-Out/Discharge Documenting (check all that apply): Patient Departure - ADMIT Patient Received Moderate/Deep Sedation with Procedure: No - Discharge Plan Condition: Stable Disposition: ADMITTED TO [facility] - Billing Disposition and Condition Condition: STABLE Disposition: Admitted to [facility] - Attestation Statements Document Initiated by Scribe: Yes Documenting Scribe: Lorin Ram Provider For Whom Scribe is Documenting (Include Credential): Dr. Guanako Dove MD Scribe Attestation: Lorin Graham, scribed for Dr. Guanako Dove MD on 10/30/18 at 1810. Scribe Documentation Reviewed: Yes Provider Attestation: The documentation as recorded by the Lorin smith accurately reflects the service I personally performed and the decisions made by , Dr. Guanako Dove MD Status of Scribe Document: Viewed
[2018-10-30 09:52] LABS: ABS Basophils 0 10^3/ul (0-0.2); ABS Eosinophils 0.2 10^3/ul (0-0.6); ABS Lymphocytes 1.7 10^3/ul (1.0-4.8); ABS Monocytes 0.9 10^3/ul (0-0.8); ABS Neutrophils 11.7 10^3/ul (1.5-7.7); ABS Nucleated RBC 0 10^3/ul; Eosinophil % 1.6 %; Hematocrit 43 % (35-47); Hemoglobin 14.2 g/dl (12.0-16.0); Lymphocyte % 11.4 %; Mean Corpuscular HGB Conc 33 g/dl (31-36); Mean Corpuscular Hemoglobin 30 pg (27-31); Mean Corpuscular Volume 92 fL (80-97); Mean Platelet Volume 8.3 fL (7.4-10.4); Nucleated Red Blood Cells % 0.1; Platelet Count 347 10^3/ul (150-450); Red Blood Count 4.67 10^6/ul (4.00-5.40); Red Cell Distribution Width 15 % (10.5-15); White Blood Count 14.5 10^3/ul (3.5-10.8)
[2018-10-30 10:09] LABS: Urine Appearance Cloudy; Urine Bacteria 1+ (Absent); Urine Bilirubin Negative (Negative); Urine Blood Negative (Negative); Urine Color Yellow; Urine Glucose 2+(150 mg/dL) (Negative); Urine Ketones Negative (Negative); Urine Nitrite Negative (Negative); Urine Protein Negative (Negative); Urine Red Blood Cell 2+(6-10/hpf) (Absent); Urine Specific Gravity 1.008 (1.010-1.030); Urine Urobilinogen Negative (Negative); Urine White Blood Cell 3+(>20/hpf) (Absent)
[2018-10-30] MEDS ORDERED: cefTRIAXone(*) 2 GM in NS 0.9% 100 ML* 100 ML IVPB ONE (10:20)
[2018-10-30 10:25] LABS: Influenza A Molecular NEGATIVE (Negative); Influenza B Molecular NEGATIVE (Negative)
[2018-10-30 11:23] LABS: ALT 36 U/L (7-52); Albumin 4.1 g/dL (3.2-5.2); Alkaline Phosphatase 64 U/L (34-104); BUN/Creatinine Ratio 15.3 (8-20); Blood Urea Nitrogen 15 mg/dL (6-24); C Reactive Protein 31.55 mg/L (<8.01); CO2 Carbon Dioxide 25 mmol/L (22-32); Calcium 9.8 mg/dL (8.6-10.3); Chloride 99 mmol/L (101-111); Creatine Kinase 51 U/L (10-223); EGFR African American 68.5 (>60); EGFR Non-African American 56.6 (>60); Globulin 4.3 g/dL (2-4); Glucose 184 mg/dL (70-100); Sodium 135 mmol/L (135-145); Total Protein 8.4 g/dL (6.4-8.9)
[2018-10-30 11:24] LABS: Troponin I 0.01 ng/mL (<0.04)
[2018-10-30 11:53] LABS: Anion Gap 11 mmol/L (2-11)
[2018-10-30] MEDS ORDERED: Artificial Tears* 15 ML BTL BOTH EYES PRN (12:33)
[2018-10-30] MEDS ORDERED: Acetaminophen TAB* 325 MG PO PRN (12:33)
[2018-10-30] MEDS ORDERED: Nystatin TOP POWDER* 15 GM BTL TOPICAL PRN (12:33)
[2018-10-30] MEDS ORDERED: hydrALAZINE IV* 20 MG/ML VIAL IV SLOW PU PRN (12:45)
[2018-10-30] MEDS ORDERED: NS 0.9% 1000 ML** 1,000 ML IV.FLUID IV ONE (12:49)
[2018-10-30 12:53] LABS: Erythrocyte Sed Rate 75 mm/Hr (0-30)
[2018-10-30 12:55] LABS: Carbamazepine 4.1 mcg/mL (4.0-12.0)
[2018-10-30] MEDS ORDERED: Magnesium Hydroxide LIQ* 30 ML UDC PO PRN (12:55)
[2018-10-30] MEDS ORDERED: Al Hydrox/Mg Hydrox/Simet LIQ* 30 ML UDC PO PRN (12:55)
[2018-10-30] MEDS ORDERED: Dextrose 50% Syringe 50 ML* 25 GM/50 ML SYRINGE IV PUSH PRN (13:07)
[2018-10-30] MEDS: Ampicillin ADVAN(*) 2 GM in NS 0.9% 100 ML* 100 ML IVPB SCH ×2 (14:23→20:20)
[2018-10-30] MEDS: Metoprolol Succinate XL TAB* 100 MG PO SCH (15:32)
[2018-10-30] MEDS: Heparin VIAL(*) 5000 UNITS/ML VIAL (FIVE THOUSAND) SUBCUT SCH ×2 (15:33→21:38)
[2018-10-30] MEDS: Metoprolol Tartrate IV* 1 MG/ML 5 ML VIAL IV SCH ×2 (15:33→19:18)
[2018-10-30] MEDS: Baclofen TAB* 10 MG PO SCH ×3 (15:38→21:38)
[2018-10-30] MEDS: Fluconazole 400 MG IVPREMIX(*) 400 MG/200 ML BAG IVPB SCH (15:39)
[2018-10-30] MEDS: Insulin LISPRO* 1 UNITS UNIT SUBCUT SCH ×2 (17:47→21:39)
[2018-10-30] MEDS: Morphine VIAL* 4 MG/ML VIAL (1 ml vial) IV PRN (19:28)
--- NOTE | 2018-10-30 20:22 | HP ---
CC: Dr. Olivares; Dr. Eaton; Dr. Blanco * HISTORY AND PHYSICAL: DATE OF ADMISSION: 10/30/18 PRIMARY CARE PROVIDER: Dr. Olivares. CHIEF COMPLAINT: Altered mental status. HISTORY OF PRESENT ILLNESS: Lucretia Em is a 68-year-old female, who was just discharged from our facility on 10/27/18. The patient has a history of multiple sclerosis and has had problems with frequent urinary tract infections. Initially, at the end of August 2018, she had fungal infection in her kidney and that was treated with Diflucan. She had second admission on 10/19/18, ending on 10/27/18 for sepsis secondary to E. coli and enterocutaneous UTI, treated with ampicillin. The patient's who is present in the room and who is the patient's primary foster care worker stated that the patient had been doing fine and is self-catheterizing herself, which she usually does for a neurogenic bladder until last night when she refused to eat and did not take her pills. Today in the morning, she was very confused and lethargic. During my conversation with the patient and the patient's , all she says is "no pills, no pills." She is going to be admitted with diagnosis of sepsis likely due to UTI. PAST MEDICAL HISTORY: 1. History of advanced multiple sclerosis. 2. History of neurogenic bladder. The patient self-catheterizes. Her Mcwilliams was placed in the ER today. 3. History of recurrent UTIs, also leelee UTI. 4. History of kidney stones. 5. Diabetes, type 2. 6. Hypertension. 7. History of seizure disorder. 8. History of left breast cancer, status post lumpectomy. 9. History of ureteral stent placement; the last ureteral stent was placed/ exchanged by Dr. Eaton on 10/03/18 on the left side. MEDICATIONS: Current medications include: 1. Vitamin D 1000 units daily. 2. Baclofen 20 mg 4 times a day. 3. Lipitor 40 mg q.h.s. 4. Anastrozole 1 mg daily. 5. Tylenol on a p.r.n. basis. 6. Oxybutynin 5 mg b.i.d. 7. Nystatin powder t.i.d. p.r.n. 8. Multivitamin 1 tablet daily. 9. Metoprolol XL 100 mg daily. 10. Glipizide XL 5 mg b.i.d. 11. Carbamazepine 200 mg b.i.d. 12. Potassium chloride 20 mEq daily. 13. Magnesium oxide 800 mg daily. 14. [place] 5/325 mg every 6 hours p.r.n. 15. Artificial tears 1 drop to both eyes every 2 hours p.r.n. ALLERGIES: LISINOPRIL and SULFA. FAMILY HISTORY: Positive for mother with leukemia. SOCIAL HISTORY: The patient denies any tobacco, alcohol, or drug use. She lives with her , who is her primary foster care worker. At baseline, she catheterizes herself for neurogenic bladder. She is also usually able to transfer herself from bed to wheelchair. She is wheelchair bound. REVIEW OF SYSTEMS: Please see history of present illness. The patient herself is not able to contribute any complaints due to alteration of her mental state. As per her , the patient had been doing okay until last night as mentioned above. All the remaining 12 systems were reviewed with the and were otherwise negative. PHYSICAL EXAMINATION GENERAL: The patient is a very pleasant 68-year-old female, who is in no acute distress. The patient is confused. Awake. She is able to follow commands, but she is unable to converse. All she says is "no pills." VITAL SIGNS: Blood pressure of 184/99, heart rate of 78 and regular, respiratory rate 15, oxygen saturation 95% on room air, temperature of 97.8. HEENT: Head: Atraumatic, normocephalic. Eyes: Pupils are equal, reactive to light and accommodation. Oropharynx clear. Mucosa dry. NECK: Supple. No JVD. No bruits bilaterally. RESPIRATORY: Clear to auscultation bilaterally. CARDIOVASCULAR: Regular rate and rhythm. No murmur. ABDOMEN: Soft, nontender. Bowel sounds are present in all 4 quadrants. No flank tenderness on evaluation. EXTREMITIES: There is no edema. Pulses are +2 bilaterally. No clubbing or cyanosis. NEUROLOGIC: On neuro evaluation, the patient is confused. Cranial nerves II through XII grossly intact. Speech is clear. Motor strength is 5/5 in bilateral upper extremities and 3+/5 in bilateral lower extremities. SKIN: On evaluation of the skin, the patient has stage 2 to 3 sacral decubitus ulcer that is approximately 15 cm in diameter, deep to the muscle. Does not appear to be infected. DIAGNOSTIC STUDIES/LAB DATA: Portable chest x-ray shows "no radiographic evidence for acute cardiopulmonary abnormality on this portable chest x-ray." Brain CT, impression: "No definitive acute intracranial abnormality and the CT of the brain is limited by motion artifact." The patient's EKG showed normal sinus rhythm with a heart rate of 87 beats per minute, but no significant ST changes. The patient's urinalysis showed +2 bacteria, +3 white blood cells, red blood cells, and esterase and nitrite positive. Remaining laboratory data shows white blood cell count of 14.5, hemoglobin 14.2 , hematocrit 43, and platelets 347. ESR was 75. Sodium was 135, potassium unable to obtain, chloride of 99, carbon dioxide 25, BUN 15, creatinine 0.98. Liver function tests unremarkable. C-reactive protein of 31.5. Troponin of 0.01. Renal ultrasound is pending at the time of dictation. ASSESSMENT AND PLAN: 1. The patient is septic likely due to yet another urinary tract infection. I briefly discussed the case with Dr. Blanco. The patient is going to be placed right now on Diflucan and ampicillin. She was diagnosed with enterococcus and Escherichia coli urinary tract infection and treated with ampicillin last time. 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 At this point, the question is should the patient have another stent exchange or placement of a nephrostomy tube. Renal ultrasound is pending at the time of dictation. The patient is going to be treated with intravenous fluids for her sepsis. 2. For the patient's history of seizures, carbamazepine is going to be continued. Levels of carbamazepine are currently pending. 3. For her diabetes, the patient's oral hypoglycemic agents are going to be held. The patient is going to be placed on insulin sliding scale. 4. The patient is markedly hypertensive likely due to that she was unable to take her tablets, which is Toprol-XL at 100 mg daily. I will continue to encourage to take her tablets, but if she cannot, I am going to place her on Lopressor IV every 6 hours on a scheduled basis. The patient is also going to be treated with hydralazine on a p.r.n. basis. 5. The patient's code status is full and her surrogate is her . 6. For the patient's history of breast cancer, anastrozole is going to be continued. 7. The patient has stage 2 to 3 sacral decubitus ulcer for which wound care consult was already requested. The patient is going to be also frequently repositioned and for the time being, we will treat her with Xeroform dressing changes every other day as previously used. TIME SPENT: Approximately 75 minutes was spent on the admission of this patient , more than half of that time was spent [id number] with the patient during the interview and physical exam. [id number]/[facility] #: [id number] SHANTID
[2018-10-30] MEDS: Atorvastatin* 40 MG TAB PO SCH (21:38)
[2018-10-30] MEDS: Oxybutynin TAB* 5 MG PO SCH (21:39)
[2018-10-30] MEDS: carBAMazepine TAB(*) 200 MG PO SCH (21:39)
[2018-10-30] MEDS: Docusate CAP* 100 MG PO SCH (21:39)
[2018-10-30] MEDS: NS 0.9% 1000 ML** 1,000 ML IV SCH (22:57)
[2018-10-31] MEDS: Metoprolol Tartrate IV* 1 MG/ML 5 ML VIAL IV SCH ×4 (00:54→21:13)
[2018-10-31] MEDS: Ampicillin ADVAN(*) 2 GM in NS 0.9% 100 ML* 100 ML IVPB SCH ×3 (02:07→14:16)
[2018-10-31] MEDS: Heparin VIAL(*) 5000 UNITS/ML VIAL (FIVE THOUSAND) SUBCUT SCH ×3 (05:11→21:15)
[2018-10-31] MEDS: carBAMazepine TAB(*) 200 MG PO SCH ×2 (09:32→21:17)
[2018-10-31] MEDS: Insulin LISPRO* 1 UNITS UNIT SUBCUT SCH ×4 (09:32→21:15)
[2018-10-31] MEDS: Docusate CAP* 100 MG PO SCH ×2 (09:32→21:16)
[2018-10-31] MEDS: Baclofen TAB* 10 MG PO SCH ×4 (09:33→21:16)
[2018-10-31] MEDS: Potassium Chlor TAB* 20 MEQ TAB.ER PO SCH (09:34)
[2018-10-31] MEDS: Oxybutynin TAB* 5 MG PO SCH ×2 (09:35→21:16)
[2018-10-31] MEDS: Metoprolol Succinate XL TAB* 100 MG PO SCH (09:35)
[2018-10-31] MEDS: HYDROcodone/ACETAMIN 5-325 MG* 1 TAB PO PRN (09:36)
[2018-10-31] MEDS: NS 0.9% 1000 ML** 1,000 ML IV SCH ×2 (09:45→21:22)
[2018-10-31] MEDS: CMCS - Anastrozole (NF) 1 MG TAB PO SCH (12:22)
[2018-10-31] MEDS: Magnesium Oxide TAB* 400 MG PO SCH (12:22)
[2018-10-31 13:32] LABS: ABS Basophils 0 10^3/ul (0-0.2); ABS Eosinophils 0.5 10^3/ul (0-0.6); ABS Lymphocytes 2.5 10^3/ul (1.0-4.8); ABS Monocytes 0.9 10^3/ul (0-0.8); ABS Nucleated RBC 0 10^3/ul; Eosinophil % 4.7 %; Hematocrit 34 % (35-47); Hemoglobin 11.4 g/dl (12.0-16.0); Lymphocyte % 22.8 %; Mean Corpuscular HGB Conc 34 g/dl (31-36); Mean Corpuscular Hemoglobin 31 pg (27-31); Mean Corpuscular Volume 91 fL (80-97); Mean Platelet Volume 8.3 fL (7.4-10.4); Nucleated Red Blood Cells % 0; Platelet Count 347 10^3/ul (150-450); Red Blood Count 3.71 10^6/ul (4.00-5.40); Red Cell Distribution Width 15 % (10.5-15); White Blood Count 10.9 10^3/ul (3.5-10.8)
[2018-10-31 13:55] LABS: BUN/Creatinine Ratio 14.1 (8-20); Calcium 8.6 mg/dL (8.6-10.3); EGFR African American 89.1 (>60); EGFR Non-African American 73.7 (>60); Potassium 3.3 mmol/L (3.5-5.0)
[2018-10-31] MEDS ORDERED: Piperacillin/Tazobac ADVAN(*) 3.375 GM in NS 0.9% 100 ML* 100 ML IVPB ONE (14:04)
[2018-10-31] MEDS ORDERED: Zosyn per Pharmacy* NOTE FOLLOW UP SCH (15:00)
[2018-10-31] MEDS: Fluconazole 400 MG IVPREMIX(*) 400 MG/200 ML BAG IVPB SCH (18:32)
[2018-10-31] MEDS ORDERED: Magnesium CITRATE* 300 ML BTL PO ONE (19:23)
--- NOTE | 2018-10-31 19:26 | PN ---
Subjective Interval History: Tmax 99.4 Pt is still confused though improved from admission per who is appropriately frustrated that she has been in and out of the hospital so much. Pt not oriented to year or president. Attests to pain in stomach and her back no BM since 10/27. has not been getting milk of mag prn. citrobacter on UCx. Changed to zosyn from ampcillin. Objective Active Medications: Acetaminophen (Tylenol Tab*) 650 mg PO Q6H PRN PRN Reason: pain/fever Hydrocodone Bitart/Acetaminophen ([place] 5-325 Tab*) 1 tab PO Q6H PRN PRN Reason: PAIN Last Admin: 10/31/18 09:36 Dose: 1 tab Al Hydrox/Mg Hydrox/Simethicone (Maalox Plus*) 30 ml PO Q6H PRN PRN Reason: INDIGESTION Anastrozole (Arimidex (Nf)) 1 mg PO 1200 [facility] Last Admin: 10/31/18 12:22 Dose: 1 mg Atorvastatin Calcium (Lipitor*) 40 mg PO BEDTIME [facility] Last Admin: 10/30/18 21:38 Dose: 40 mg Baclofen (Lioresal Tab*) 20 mg PO QID [facility] Last Admin: 10/31/18 18:30 Dose: 20 mg Carbamazepine (Tegretol Tab(*)) 200 mg PO BID [facility] Last Admin: 10/31/18 09:32 Dose: 200 mg Dextrose (D50w Syringe 50 Ml*) 12.5 gm IV PUSH .FOR FS < 60 - SS PRN PRN Reason: FS < 60 Docusate Sodium (Colace Cap*) 100 mg PO BID [facility] Last Admin: 10/31/18 09:32 Dose: 100 mg Heparin Sodium (Porcine) (Heparin Vial(*)) 5,000 units SUBCUT Q8HR [facility] Last Admin: 10/31/18 12:23 Dose: 5,000 units Hydralazine HCl (Apresoline Iv*) 5 mg IV SLOW PU Q6H PRN PRN Reason: HTN Last Admin: 10/31/18 05:11 Dose: 5 mg Fluconazole/Sodium Chloride (Diflucan 400 Mg Ivpremix(*)) 400 mg in 200 mls @ 100 mls/hr IVPB Q24H [facility] Last Admin: 10/31/18 18:32 Dose: 100 mls/hr Sodium Chloride (Ns 0.9% 1000 Ml) 1,000 mls @ 125 mls/hr IV PER RATE [facility] Last Admin: 10/31/18 09:45 Dose: 125 mls/hr Piperacillin Sod/Tazobactam (Sod 3.375 gm/ Sodium Chloride) 100 mls @ 25 mls/ hr IVPB Q8H [facility] Insulin Human Lispro (Humalog*) 0 units SUBCUT ACHS [facility]; Protocol Last Admin: 10/31/18 17:09 Dose: Not Given Magnesium Citrate (Citrate Of Magnesia*) 150 ml PO ONCE ONE Stop: 10/31/18 19:24 Magnesium Hydroxide (Milk Of Magnesia Liq*) 30 ml PO Q4H PRN PRN Reason: CONSTIPATION Magnesium Oxide (Magox 400 Tab*) 800 mg PO DAILY [facility] Last Admin: 10/31/18 12:22 Dose: 800 mg Metoprolol Succinate (Toprol Xl Tab*) 100 mg PO QAM [facility] Last Admin: 10/31/18 09:35 Dose: 100 mg Metoprolol Tartrate (Lopressor Iv*) 5 mg IV Q6H [facility] Last Admin: 10/31/18 14:17 Dose: 5 mg Morphine Sulfate (Morphine Vial*) 1 mg IV Q4H PRN PRN Reason: PAIN - MILD Last Admin: 10/30/18 19:28 Dose: 1 mg Nystatin (Nystatin Top Powder*) 1 applic TOPICAL TID PRN PRN Reason: RASH Oxybutynin Chloride (Ditropan Tab*) 5 mg PO BID [facility] Last Admin: 10/31/18 09:35 Dose: 5 mg Pharmacy Consult (Zosyn Per Pharmacy*) 1 note FOLLOW UP .ZOSYN PER PHARMACY [facility] Polyvinyl Alcohol (Polyvinyl Alcohol 1.4% Opth*) 1 drop BOTH EYES Q2H PRN PRN Reason: DRY EYE Potassium Chloride (Klor Con Er Tab*) 20 meq PO DAILY [facility] Last Admin: 10/31/18 09:34 Dose: 20 meq Senna (Senokot Tab*) 1 tab PO DAILY [facility] Vital Signs - 8 hr 10/31/18 10/31/18 10/31/18 11:30 12:00 13:11 Temperature 99.1 F 96.1 F Pulse Rate 88 84 Respiratory 18 20 18 Rate Blood Pressure 142/79 140/74 (mmHg) O2 Sat by Pulse 93 95 Oximetry 10/31/18 15:05 Temperature 99.4 F Pulse Rate 85 Respiratory 24 Rate Blood Pressure 131/66 (mmHg) O2 Sat by Pulse 95 Oximetry Oxygen Devices in Use Now: None Appearance: mild distress, anxious. Eyes: No Scleral Icterus Neck: NL Appearance and Movements; NL JVP, Trachea Midline Respiratory: Symmetrical Chest Expansion and Respiratory Effort, Clear to Auscultation Cardiovascular: NL Sounds; No Murmurs; No JVD, RRR Abdominal: No Hepatosplenomegaly, - - some mild epigastric tenderness. soft, no rebound or guarding. Extremities: No Edema Skin: No Rash or Ulcers Neurological: - - oriented to name and hospital but not time. can wiggle toes. Lines/Tubes/Other Access: Clean, Dry and Intact [place] Nutrition: Taking PO's Result Diagrams: 10/31/18 11:45 10/31/18 11:45 Additional Lab and Data: Laboratory Results - last 24 hr 10/31/18 10/31/18 10/31/18 08:05 11:45 11:45 WBC 10.9 H RBC 3.71 L Hgb 11.4 L Hct 34 L MCV 91 MCH 31 MCHC 34 RDW 15 Plt Count 347 MPV 8.3 Neut % (Auto) 64.3 Lymph % (Auto) 22.8 [place] % (Auto) 7.8 Eos % (Auto) 4.7 Baso % (Auto) 0.4 Absolute Neuts (auto) 7.0 Absolute Lymphs (auto) 2.5 Absolute Monos (auto) 0.9 H Absolute Eos (auto) 0.5 Absolute Basos (auto) 0 Absolute Nucleated RBC 0 Nucleated RBC % 0 Sodium 139 Potassium 3.3 L Chloride 105 Carbon Dioxide 25 Anion Gap 9 BUN 11 Creatinine 0.78 Est GFR ( Amer) 89.1 Est GFR (Non-Af Amer) 73.7 BUN/Creatinine Ratio 14.1 Glucose 207 H POC Glucose (mg/dL) 182 H Calcium 8.6 10/31/18 10/31/18 10/31/18 11:52 16:46 20:55 WBC RBC Hgb Hct MCV MCH MCHC RDW Plt Count MPV Neut % (Auto) Lymph % (Auto) [place] % (Auto) Eos % (Auto) Baso % (Auto) Absolute Neuts (auto) Absolute Lymphs (auto) Absolute Monos (auto) Absolute Eos (auto) Absolute Basos (auto) Absolute Nucleated RBC Nucleated RBC % Sodium Potassium Chloride Carbon Dioxide Anion Gap BUN Creatinine Est GFR ( Amer) Est GFR (Non-Af Amer) BUN/Creatinine Ratio Glucose POC Glucose (mg/dL) 213 H 128 H 245 H Calcium Microbiology and Other Data: Microbiology 10/30/18 09:55 Urine Urine Culture - Preliminary Citrobacter Braakii 10/30/18 09:44 Blood Venous Aerobic Blood Culture - Preliminary No Growth Day 1 10/30/18 09:44 Blood Venous Anaerobic Blood Culture - Preliminary No Growth Day 1 10/30/18 09:48 Nasal Influenza Types A,B Antigen - Final Specimen received for Influenza A/B Molecular testing Assess/Plan/Problems-Billing Assessment: 68 year old female PMH severe MS, neurogenic bladder requiring self cath, recrrent nephrolithiasis and UTIs including recent leelee albicans, Enterobacter Faecalis and Ecoli UTIs, left silicone ureteral stent exchanged 10/05 , sacral decubitis stage 2 p/w altered mental status, leukocytosis and Citrobacter Braakii >100K UTI. Now on zosyn. - Patient Problems (1) Citrobacter infection Current Visit: Yes Status: Acute Code(s): A49.8 - OTHER BACTERIAL INFECTIONS OF UNSPECIFIED SITE SNOMED Code(s): 493006076 Comment: Switch from ampicillin to Zosyn given inducible AMPc mediated resistance. ID consult f/u sensitivities. given stent, Urology was consulted on admission. Will f/u recs. (2) Constipation Current Visit: No Status: Acute Priority: Medium Code(s): K59.00 - CONSTIPATION, UNSPECIFIED SNOMED Code(s): 00290894 Comment: -MagCitrate 1x and standing senna given opioid pain meds -c/w MoM prn, colace (3) Sacral decubitus ulcer, stage II Current Visit: No Status: Acute Code(s): L89.152 - PRESSURE ULCER OF SACRAL REGION, STAGE 2 SNOMED Code(s): 709275602 Comment: Continue local wound care and pressure relieving measures. (4) Toxic metabolic encephalopathy Current Visit: No Status: Acute Code(s): G92 - TOXIC ENCEPHALOPATHY SNOMED Code(s): 325260036 Comment: - In setting of Citrobacter UTI- (5) DM2 (diabetes mellitus, type 2) Current Visit: No Status: Chronic Priority: Medium Comment: - holding home glipizide 5mg po BID. - SSI - POCT qachs - A1C 9.3 (6) Lower back pain Current Visit: No Status: Chronic Code(s): M54.5 - LOW BACK PAIN SNOMED Code(s): 857986485 Comment: likely 2/2 sacral decub, pyelo or constipation. (7) Multiple sclerosis Current Visit: No Status: Chronic Priority: High Code(s): G35 - MULTIPLE SCLEROSIS SNOMED Code(s): 61177128 Comment: Continue baclofen and tegretol (for muscle spasms, not seizures). (8) Neurogenic bladder Current Visit: No Status: Chronic Code(s): N31.9 - NEUROMUSCULAR DYSFUNCTION OF BLADDER, UNSPECIFIED SNOMED Code(s): 363327273 Comment: frandy currently. Status and Disposition: medicine inpatient, needing IV antibiotics until urine culture is back. Confusion remains.
[2018-10-31] MEDS: Morphine VIAL* 4 MG/ML VIAL (1 ml vial) IV PRN (21:13)
[2018-10-31] MEDS: Senna TAB PO SCH (21:16)
[2018-10-31] MEDS: Atorvastatin* 40 MG TAB PO SCH (21:16)
[2018-10-31] MEDS: ZOSYN 3.375 GM Q8H per EXTENDED INFUSION IVPB SCH ×2 (21:17)
[2018-11-01] MEDS: Metoprolol Tartrate IV* 1 MG/ML 5 ML VIAL IV SCH ×4 (02:00→18:14)
[2018-11-01] MEDS: ZOSYN 3.375 GM Q8H per EXTENDED INFUSION IVPB SCH ×2 (03:49)
[2018-11-01] MEDS: Heparin VIAL(*) 5000 UNITS/ML VIAL (FIVE THOUSAND) SUBCUT SCH ×3 (06:14→20:45)
[2018-11-01] MEDS ORDERED: Ondansetron INJ* 2 MG/ML VIAL IV PRN (08:21)
[2018-11-01] MEDS ORDERED: Bisacodyl SUPP* 10 MG SUPP PR ONE (08:23)
[2018-11-01] MEDS: Morphine VIAL* 4 MG/ML VIAL (1 ml vial) IV PRN ×2 (08:50→22:10)
[2018-11-01 09:32] LABS: ABS Basophils 0.1 10^3/ul (0-0.2); ABS Eosinophils 0.4 10^3/ul (0-0.6); ABS Lymphocytes 2.4 10^3/ul (1.0-4.8); ABS Monocytes 0.8 10^3/ul (0-0.8); ABS Neutrophils 4.4 10^3/ul (1.5-7.7); ABS Nucleated RBC 0 10^3/ul; Eosinophil % 4.6 %; Hematocrit 31 % (35-47); Hemoglobin 10.3 g/dl (12.0-16.0); Lymphocyte % 29.3 %; Mean Corpuscular HGB Conc 33 g/dl (31-36); Mean Corpuscular Hemoglobin 31 pg (27-31); Mean Corpuscular Volume 92 fL (80-97); Mean Platelet Volume 8.2 fL (7.4-10.4); Nucleated Red Blood Cells % 0.1; Platelet Count 312 10^3/ul (150-450); Red Blood Count 3.38 10^6/ul (4.00-5.40); Red Cell Distribution Width 16 % (10.5-15); White Blood Count 8.1 10^3/ul (3.5-10.8)
[2018-11-01] MEDS: carBAMazepine TAB(*) 200 MG PO SCH ×4 (10:01→21:55)
[2018-11-01] MEDS: Magnesium Oxide TAB* 400 MG PO SCH (10:02)
[2018-11-01] MEDS: Baclofen TAB* 10 MG PO SCH ×6 (10:02→21:56)
[2018-11-01] MEDS: Metoprolol Succinate XL TAB* 100 MG PO SCH (10:02)
[2018-11-01] MEDS: Docusate CAP* 100 MG PO SCH ×4 (10:04→21:57)
[2018-11-01] MEDS: Senna TAB PO SCH (10:04)
[2018-11-01] MEDS: Oxybutynin TAB* 5 MG PO SCH ×4 (10:04→21:59)
[2018-11-01] MEDS: Potassium Chlor TAB* 20 MEQ TAB.ER PO SCH (10:05)
[2018-11-01] MEDS: Insulin LISPRO* 1 UNITS UNIT SUBCUT SCH ×4 (10:08→20:44)
[2018-11-01 10:14] LABS: Calcium 8.1 mg/dL (8.6-10.3); Potassium 3.7 mmol/L (3.5-5.0)
[2018-11-01 10:20] LABS: BUN/Creatinine Ratio 11.5 (8-20); EGFR African American 89.1 (>60); EGFR Non-African American 73.7 (>60)
--- NOTE | 2018-11-01 11:30 | PN ---
Subjective Interval History: per RN disoriented this AM, but improved by mid day during my evaluation no BM yet KUB pending Pt is not complaining of as much back pain today. citrobacter resistant to zosyn, changing to levaquin no urology available yesterday or today. Objective Active Medications: Acetaminophen (Tylenol Tab*) 650 mg PO Q6H PRN PRN Reason: pain/fever Hydrocodone Bitart/Acetaminophen ([place] 5-325 Tab*) 1 tab PO Q6H PRN PRN Reason: PAIN Last Admin: 10/31/18 09:36 Dose: 1 tab Al Hydrox/Mg Hydrox/Simethicone (Maalox Plus*) 30 ml PO Q6H PRN PRN Reason: INDIGESTION Anastrozole (Arimidex (Nf)) 1 mg PO 1200 [facility] Last Admin: 10/31/18 12:22 Dose: 1 mg Atorvastatin Calcium (Lipitor*) 40 mg PO BEDTIME [facility] Last Admin: 10/31/18 21:16 Dose: 40 mg Baclofen (Lioresal Tab*) 20 mg PO QID [facility] Last Admin: 11/01/18 10:02 Dose: 20 mg Carbamazepine (Tegretol Tab(*)) 200 mg PO BID [facility] Last Admin: 11/01/18 10:01 Dose: 200 mg Dextrose (D50w Syringe 50 Ml*) 12.5 gm IV PUSH .FOR FS < 60 - SS PRN PRN Reason: FS < 60 Docusate Sodium (Colace Cap*) 100 mg PO BID [facility] Last Admin: 11/01/18 10:04 Dose: 100 mg Heparin Sodium (Porcine) (Heparin Vial(*)) 5,000 units SUBCUT Q8HR [facility] Last Admin: 11/01/18 06:14 Dose: Not Given Hydralazine HCl (Apresoline Iv*) 5 mg IV SLOW PU Q6H PRN PRN Reason: HTN Last Admin: 10/31/18 05:11 Dose: 5 mg Fluconazole/Sodium Chloride (Diflucan 400 Mg Ivpremix(*)) 400 mg in 200 mls @ 100 mls/hr IVPB Q24H [facility] Last Admin: 10/31/18 18:32 Dose: 100 mls/hr Sodium Chloride (Ns 0.9% 1000 Ml) 1,000 mls @ 125 mls/hr IV PER RATE [facility] Last Admin: 10/31/18 21:22 Dose: 125 mls/hr Insulin Human Lispro (Humalog*) 0 units SUBCUT ACHS [facility]; Protocol Last Admin: 11/01/18 10:08 Dose: 2 units Magnesium Hydroxide (Milk Of Magnesia Liq*) 30 ml PO Q4H PRN PRN Reason: CONSTIPATION Magnesium Oxide (Magox 400 Tab*) 800 mg PO DAILY [facility] Last Admin: 11/01/18 10:02 Dose: 800 mg Metoprolol Succinate (Toprol Xl Tab*) 100 mg PO QAM [facility] Last Admin: 11/01/18 10:02 Dose: 100 mg Metoprolol Tartrate (Lopressor Iv*) 5 mg IV Q6H [facility] Last Admin: 11/01/18 06:14 Dose: 5 mg Morphine Sulfate (Morphine Vial*) 1 mg IV Q4H PRN PRN Reason: PAIN - MILD Last Admin: 11/01/18 08:50 Dose: 1 mg Nystatin (Nystatin Top Powder*) 1 applic TOPICAL TID PRN PRN Reason: RASH Ondansetron HCl (Zofran Inj*) 4 mg IV Q6H PRN PRN Reason: NAUSEA Last Admin: 11/01/18 08:57 Dose: 4 mg Oxybutynin Chloride (Ditropan Tab*) 5 mg PO BID [facility] Last Admin: 11/01/18 10:04 Dose: 5 mg Polyvinyl Alcohol (Polyvinyl Alcohol 1.4% Opth*) 1 drop BOTH EYES Q2H PRN PRN Reason: DRY EYE Potassium Chloride (Klor Con Er Tab*) 20 meq PO DAILY [facility] Last Admin: 11/01/18 10:05 Dose: 20 meq Senna (Senokot Tab*) 1 tab PO DAILY [facility] Last Admin: 11/01/18 10:04 Dose: 1 tab Vital Signs - 8 hr 11/01/18 11/01/18 11/01/18 07:56 08:00 08:50 Pulse Rate 79 Respiratory 33 22 18 Rate Blood Pressure 156/88 (mmHg) O2 Sat by Pulse 97 Oximetry Oxygen Devices in Use Now: None Appearance: NAD Eyes: No Scleral Icterus Ears/Nose/Mouth/Throat: NL Teeth, Lips, Gums Neck: NL Appearance and Movements; NL JVP Respiratory: - - anteriorly CTAB, no w/r/r Cardiovascular: NL Sounds; No Murmurs; No JVD, RRR Abdominal: NL Sounds; No Tenderness; No Distention Extremities: No Edema Skin: No Rash or Ulcers Neurological: - - oriented to name but not year. can't sit up in bed Nutrition: Taking PO's Result Diagrams: 11/01/18 07:10 11/01/18 06:20 Additional Lab and Data: Laboratory Results - last 24 hr 11/01/18 11/01/18 11/01/18 06:20 07:10 07:19 WBC 8.1 RBC 3.38 L Hgb 10.3 L Hct 31 L MCV 92 MCH 31 MCHC 33 RDW 16 H Plt Count 312 MPV 8.2 Neut % (Auto) 54.8 Lymph % (Auto) 29.3 [place] % (Auto) 10.2 Eos % (Auto) 4.6 Baso % (Auto) 1.1 Absolute Neuts (auto) 4.4 Absolute Lymphs (auto) 2.4 Absolute Monos (auto) 0.8 Absolute Eos (auto) 0.4 Absolute Basos (auto) 0.1 Absolute Nucleated RBC 0 Nucleated RBC % 0.1 Sodium 140 Potassium 3.7 Chloride 109 Carbon Dioxide 22 Anion Gap 9 BUN 9 Creatinine 0.78 Est GFR ( Amer) 89.1 Est GFR (Non-Af Amer) 73.7 BUN/Creatinine Ratio 11.5 Glucose 185 H POC Glucose (mg/dL) 192 H Calcium 8.1 L 11/01/18 11/01/18 11/01/18 11:37 16:33 19:44 WBC RBC Hgb Hct MCV MCH MCHC RDW Plt Count MPV Neut % (Auto) Lymph % (Auto) [place] % (Auto) Eos % (Auto) Baso % (Auto) Absolute Neuts (auto) Absolute Lymphs (auto) Absolute Monos (auto) Absolute Eos (auto) Absolute Basos (auto) Absolute Nucleated RBC Nucleated RBC % Sodium Potassium Chloride Carbon Dioxide Anion Gap BUN Creatinine Est GFR ( Amer) Est GFR (Non-Af Amer) BUN/Creatinine Ratio Glucose POC Glucose (mg/dL) 194 H 223 H 235 H Calcium Microbiology and Other Data: Microbiology 10/31/18 11:45 Blood Venous Aerobic Blood Culture - Preliminary No Growth Day 1 10/31/18 11:45 Blood Venous Anaerobic Blood Culture - Preliminary No Growth Day 1 10/30/18 09:44 Blood Venous Aerobic Blood Culture - Preliminary No Growth Day 2 10/30/18 09:44 Blood Venous Anaerobic Blood Culture - Preliminary No Growth Day 2 10/30/18 09:55 Urine Urine Culture - Final Citrobacter Braakii 10/30/18 09:48 Nasal Influenza Types A,B Antigen - Final Specimen received for Influenza A/B Molecular testing Assess/Plan/Problems-Billing Assessment: 68 year old female PMH severe MS, neurogenic bladder requiring self cath, recrrent nephrolithiasis and UTIs including recent leelee albicans, Enterobacter Faecalis and Ecoli UTIs, left silicone ureteral stent exchanged 10/05 , sacral decubitis stage 2 p/w altered mental status, leukocytosis and Citrobacter Braakii >100K UTI. resistant to zosyn switched to levaquin. - Patient Problems (1) Citrobacter infection Current Visit: Yes Status: Acute Code(s): A49.8 - OTHER BACTERIAL INFECTIONS OF UNSPECIFIED SITE SNOMED Code(s): 754807030 Comment: Switch from Zosyn to levaquin. ID consult given stent, Urology was consulted on admission but they have not been available these last two day. Will f/u recs. (2) Constipation Current Visit: No Status: Acute Priority: Medium Code(s): K59.00 - CONSTIPATION, UNSPECIFIED SNOMED Code(s): 12667783 Comment: -standing senna given opioid pain meds -c/w MoM prn, colace - lactulose and suppository today - KUB with moderate stool in descending colon. no e/o obstruction. (3) Sacral decubitus ulcer, stage II Current Visit: No Status: Acute Code(s): L89.152 - PRESSURE ULCER OF SACRAL REGION, STAGE 2 SNOMED Code(s): 437284313 Comment: Continue local wound care and pressure relieving measures. (4) Toxic metabolic encephalopathy Current Visit: No Status: Acute Code(s): G92 - TOXIC ENCEPHALOPATHY SNOMED Code(s): 088502801 Comment: - In setting of Citrobacter UTI- (5) DM2 (diabetes mellitus, type 2) Current Visit: No Status: Chronic Priority: Medium Comment: - holding home glipizide 5mg po BID. - SSI - POCT qachs - poorly controlled in 200s, add lantus 10U in AM - A1C 9.3 (6) Lower back pain Current Visit: No Status: Chronic Code(s): M54.5 - LOW BACK PAIN SNOMED Code(s): 731702705 Comment: likely 2/2 sacral decub, pyelo or constipation. (7) Multiple sclerosis Current Visit: No Status: Chronic Priority: High Code(s): G35 - MULTIPLE SCLEROSIS SNOMED Code(s): 42542227 Comment: Continue baclofen and tegretol (for muscle spasms, not seizures). (8) Neurogenic bladder Current Visit: No Status: Chronic Code(s): N31.9 - NEUROMUSCULAR DYSFUNCTION OF BLADDER, UNSPECIFIED SNOMED Code(s): 727257278 Comment: wise currently. Status and Disposition: medicine inpatient. Awaiting Urology consultation.
[2018-11-01] MEDS ORDERED: Levofloxacin 750 MG IVPREMIX(* 750 MG/150 ML BAG IVPB SCH (12:00)
[2018-11-01] MEDS: CMCS - Anastrozole (NF) 1 MG TAB PO SCH (13:15)
[2018-11-01] MEDS: HYDROcodone/ACETAMIN 5-325 MG* 1 TAB PO PRN (15:32)
[2018-11-01] MEDS: Fluconazole 400 MG IVPREMIX(*) 400 MG/200 ML BAG IVPB SCH (17:24)
[2018-11-01] MEDS: NS 0.9% 1000 ML** 1,000 ML IV SCH (20:43)
[2018-11-01] MEDS: Atorvastatin* 40 MG TAB PO SCH (20:45)
[2018-11-02] MEDS: Metoprolol Tartrate IV* 1 MG/ML 5 ML VIAL IV SCH ×4 (00:39→18:16)
[2018-11-02] MEDS: NS 0.9% 1000 ML** 1,000 ML IV SCH ×3 (04:51→19:21)
[2018-11-02] MEDS: Heparin VIAL(*) 5000 UNITS/ML VIAL (FIVE THOUSAND) SUBCUT SCH ×3 (06:03→20:26)
[2018-11-02 08:34] LABS: ABS Basophils 0.1 10^3/ul (0-0.2); ABS Eosinophils 0.3 10^3/ul (0-0.6); ABS Lymphocytes 1.9 10^3/ul (1.0-4.8); ABS Monocytes 0.9 10^3/ul (0-0.8); ABS Neutrophils 7.8 10^3/ul (1.5-7.7); ABS Nucleated RBC 0 10^3/ul; Eosinophil % 2.6 %; Hematocrit 33 % (35-47); Hemoglobin 11.1 g/dl (12.0-16.0); Lymphocyte % 17.2 %; Mean Corpuscular HGB Conc 33 g/dl (31-36); Mean Corpuscular Hemoglobin 31 pg (27-31); Mean Corpuscular Volume 92 fL (80-97); Mean Platelet Volume 7.9 fL (7.4-10.4); Nucleated Red Blood Cells % 0; Platelet Count 311 10^3/ul (150-450); Red Blood Count 3.63 10^6/ul (4.00-5.40); Red Cell Distribution Width 16 % (10.5-15)
[2018-11-02] MEDS: Insulin LISPRO* 1 UNITS UNIT SUBCUT SCH ×4 (08:42→20:26)
[2018-11-02] MEDS: Insulin GLARGINE(*) 1 UNITS UNIT SUBCUT SCH (08:43)
[2018-11-02 09:01] LABS: BUN/Creatinine Ratio 8.7 (8-20); C Reactive Protein 19.5 mg/L (<8.01); Calcium 8.4 mg/dL (8.6-10.3); EGFR African American 102.7 (>60); EGFR Non-African American 84.9 (>60); Potassium 3.7 mmol/L (3.5-5.0)
[2018-11-02] MEDS: Potassium Chlor TAB* 20 MEQ TAB.ER PO SCH (09:52)
[2018-11-02] MEDS: HYDROcodone/ACETAMIN 5-325 MG* 1 TAB PO PRN (09:52)
[2018-11-02] MEDS: carBAMazepine TAB(*) 200 MG PO SCH ×2 (09:54→22:11)
[2018-11-02] MEDS: Metoprolol Succinate XL TAB* 100 MG PO SCH (09:55)
[2018-11-02] MEDS: Oxybutynin TAB* 5 MG PO SCH ×2 (09:56→22:12)
[2018-11-02] MEDS: Baclofen TAB* 10 MG PO SCH ×4 (09:57→22:11)
[2018-11-02] MEDS: Docusate CAP* 100 MG PO SCH ×2 (10:00→22:12)
[2018-11-02] MEDS: Magnesium Oxide TAB* 400 MG PO SCH (10:00)
[2018-11-02] MEDS: Senna TAB PO SCH (10:01)
--- NOTE | 2018-11-02 10:24 | CONS ---
CONSULTATION REPORT: DATE OF CONSULT: 11/02/18 REQUESTING PHYSICIAN: Dr. Redding. CONSULTING SERVICE: Infectious Disease. REASON FOR CONSULTATION: Encephalopathy. IMPRESSION: 1. Encephalopathy present on admission, slowly improving. Differential diagnosis includes Kim urinary tract infection. She is growing Citrobacter braakii in greater than 100,000 colonies from the urine. Blood cultures are negative. She is afebrile. She does have a left ureteral stent and recently had enterococcus and E. coli. Urinalysis here showed leukocyte esterase, white cells, red cells. She has had these recurrent urinary tract infections despite treating one, another appears soon after, could this be a component of the self- catheterization process or related to her ureteral stent. 2. Nephrolithiasis without hydronephrosis. 3. Left ureteral stent. Question if she could go some period of time without a stent. 4. Multiple sclerosis with neurogenic bladder. 5. Seizure disorder. 6. Breast cancer, on anastrozole. RECOMMENDATIONS: We will continue antibiotics here. We will switch her from Levaquin to cefepime and hold the fluconazole to get a sense of it actually contributing to any of her improvement here. It does interact with her Tegretol as well. Urology is going to see her today. HISTORY OF PRESENT ILLNESS: This 68-year-old woman with neurogenic bladder, self- catheterizes at home, has had a string of infections. She has a left ureteral stent, had a Kim urinary tract infection, subsequently with possible fungal mass in the ureter. She had a long course of antifungal and while still on it became ill again and was found to have enterococcus and E. coli. She was treated with IV antibiotics and then continued on fluconazole and amoxicillin, and 3 to 4 days later, had recurrence of a decline in mental status. She cannot provide those details, which were obtained on discussion with her . He notes that Wednesday night, she became less cooperative, would not take her medicine, was not able to self-cath. The next morning, she was even less responsive, so he had her brought to the ER where her white count was 14,000. She was afebrile. CRP was 30. Urinalysis with leukocyte esterase, white cells, red cells. Influenza PCR was negative. Tegretol level was 4. She was started on Zosyn and fluconazole. She is on Levaquin and fluconazole now. She has been a little bit irritable today and has refused a blood draw and does not want to participate in the exam. PAST MEDICAL HISTORY: 1. Multiple sclerosis with neurogenic bladder and self-catheterization. 2. Left ureteral stent. 3. Nephrolithiasis. 4. Urinary tract infection. 5. Breast cancer, treated with lumpectomy and anastrozole. 6. Hypertension. ALLERGIES: LISINOPRIL and SULFA. MEDICATIONS: 1. Tylenol. 2. Anastrozole. 3. Lipitor. 4. Baclofen. 5. Bisacodyl. 6. Tegretol. 7. Fluconazole 400 mg IV daily. 8. Docusate. 9. Heparin subcutaneous injection. 10. Hydralazine. 11. Insulin glargine. 12. Levaquin 750 mg IV daily. 13. Metoprolol. 14. Oxybutynin. 15. Senna. SOCIAL HISTORY: She lives with her . Nonsmoker. No travel. FAMILY HISTORY: Leukemia in her mother. REVIEW OF SYSTEMS: Unobtainable given her level of cooperation. PHYSICAL EXAMINATION: Vital Signs: Temperature 37, heart rate 80, respiratory rate 16, blood pressure 141/74, oxygen saturation is 93% on room air. In general, she is awake, declines to participate. She moves all extremities. Neck: Supple without mass. Heart: Regular rate and rhythm without murmurs, rubs or gallops. Lungs are clear to auscultation bilaterally. Abdomen: Soft, nontender, nondistended. Bowel sounds are present. There is no flank tenderness. Skin: There is no rash or splinter hemorrhage. LABORATORY DATA: White blood cell count 8, hemoglobin 10, platelets 312, creatinine is 0.7. Please see impressions and recommendations outlined above, which I have discussed with Dr. Redding. Thank you for asking me to see Ms. Em in consultation. [id number]/CPS #: [id number] TORI
[2018-11-02] MEDS: Cefepime 1 GM in Dextrose(*) 1 GM/50 ML BAG IV SCH ×2 (11:11→20:28)
[2018-11-02] MEDS: CMCS - Anastrozole (NF) 1 MG TAB PO SCH (12:53)
--- NOTE | 2018-11-02 14:24 | CONSULT ---
Subjective Date of Service: 11/02/18 Interval History: Ms. Em is a 68 yo female with PMH significant for DM2, breast CA, MS with neurogenic bladder, recurrent UTI, and stage 2 pressure injury to her buttocks. Ms. Em presented to the emergency room for AMS and was found to have a UTI. She presented to the hospital with a stage 2 pressure injury to her buttocks. Mr. Em states that he has been using a Silvercell dressing to her pressure injury at home. Patient seen and examined at bedside. Family History: Unchanged from Admission Social History: Unchanged from Admission Past Medical History: Unchanged from Admission Review of Systems - Measurements Intake and Output: Intake and Output Last 24 Hours 10/31/18 11/01/18 11/02/18 11/03/18 06:59 06:59 06:59 06:59 Intake Total 1375 3152 3061 2293 Output Total 2700 2200 2050 Balance -2785 890 5120 2293 Weight 137 lb 14.4 oz Intake: IV Fluids 775 2192 2291 2053 NS (0.9%) 575 2192 2291 2053 IVPB 200 370 200 ABX - AMPICILLIN 200 Fluconazole 200 200 Pipercillin 170 Oral 400 590 570 240 Output: Mcwilliams 2700 2200 0 Other: Estimated Void Large # Bowel Movements 0 1 Estimated Stool Amount Small # Voids 1 - Review of Systems Constitutional Symptoms: Negative: Fever, Other - chills Dermatology: Positive: Other - Chronic open area to buttoks Objective Active Medications: Acetaminophen (Tylenol Tab*) 650 mg PO Q6H PRN Reason: pain/fever Hydrocodone Bitart/Acetaminophen ([place] 5-325 Tab*) 1 tab PO Q6H PRN Reason: PAIN Al Hydrox/Mg Hydrox/Simethicone (Maalox Plus*) 30 ml PO Q6H PRN Reason: INDIGESTION Anastrozole (Arimidex (Nf)) 1 mg PO 1200 [facility] Atorvastatin Calcium (Lipitor*) 40 mg PO BEDTIME [facility] Baclofen (Lioresal Tab*) 20 mg PO QID [facility] Carbamazepine (Tegretol Tab(*)) 200 mg PO BID [facility] Dextrose (D50w Syringe 50 Ml*) 12.5 gm IV PUSH .FOR FS < 60 - SS PRN Reason: FS < 60 Docusate Sodium (Colace Cap*) 100 mg PO BID [facility] Fluconazole (Diflucan 100 Mg Tab*) 200 mg PO DAILY [facility] Heparin Sodium (Porcine) (Heparin Vial(*)) 5,000 units SUBCUT Q8HR [facility] Hydralazine HCl (Apresoline Iv*) 5 mg IV SLOW PU Q6H PRN Reason: HTN Sodium Chloride (Ns 0.9% 1000 Ml) 1,000 mls @ 125 mls/hr IV PER RATE [facility] Cefepime HCl (Maxipime 1 Gm In Dextrose Duplex (*)) 1 gm in 50 mls @ 100 mls/ hr IV Q12H [facility] Insulin Glargine (Lantus(*)) 10 units SUBCUT Q24H [facility] Insulin Human Lispro (Humalog*) 0 units SUBCUT ACHS SIMÓN; Protocol Lactulose (Lactulose*) 30 ml PO TID [facility] Stop: 11/02/18 21:01 Magnesium Hydroxide (Milk Of [place] Liq*) 30 ml PO Q4H PRN Reason: CONSTIPATION Magnesium Oxide (Magox 400 Tab*) 800 mg PO DAILY [facility] Metoprolol Succinate (Toprol Xl Tab*) 100 mg PO QAM [facility] Metoprolol Tartrate (Lopressor Iv*) 5 mg IV Q6H [facility] Morphine Sulfate (Morphine Vial*) 1 mg IV Q4H PRN Reason: PAIN - MILD Nystatin (Nystatin Top Powder*) 1 applic TOPICAL TID PRN Reason: RASH Ondansetron HCl (Zofran Inj*) 4 mg IV Q6H PRN Reason: NAUSEA Oxybutynin Chloride (Ditropan Tab*) 5 mg PO BID [facility] Polyvinyl Alcohol (Polyvinyl Alcohol 1.4% Opth*) 1 drop BOTH EYES Q2H PRN Reason: DRY EYE Potassium Chloride (Klor Con Er Tab*) 20 meq PO DAILY [facility] Senna (Senokot Tab*) 1 tab PO DAILY [facility] Vital Signs - 8 hr 11/02/18 11/02/18 11/02/18 08:00 09:52 11:45 Temperature 97.9 F Pulse Rate 74 Respiratory 16 16 18 Rate Blood Pressure 95/60 (mmHg) O2 Sat by Pulse 98 98 Oximetry 11/02/18 11/02/18 12:04 12:18 Temperature Pulse Rate Respiratory 16 Rate Blood Pressure 150/90 (mmHg) O2 Sat by Pulse Oximetry Oxygen Devices in Use Now: None Appearance: NAD, laying in bed Ears/Nose/Mouth/Throat: Mucous Membranes Moist Neurological: - - Alert and Oriented to Person Nutrition: Taking PO's Result Diagrams: 11/05/18 07:53 11/05/18 07:53 Additional Lab and Data: Laboratory Tests 10/30/18 10:51 Albumin 4.1 Microbiology and Other Data: Microbiology 10/31/18 11:45 Blood Venous Aerobic Blood Culture - Preliminary No Growth Day 1 10/31/18 11:45 Blood Venous Anaerobic Blood Culture - Preliminary No Growth Day 1 10/30/18 09:44 Blood Venous Aerobic Blood Culture - Preliminary No Growth Day 2 10/30/18 09:44 Blood Venous Anaerobic Blood Culture - Preliminary No Growth Day 2 10/30/18 09:55 Urine Urine Culture - Final Citrobacter Braakii 10/30/18 09:48 Nasal Influenza Types A,B Antigen - Final Specimen received for Influenza A/B Molecular testing Skin Deviation Note - Skin Deviation Findings Buttocks - Open area is 5 cm x 8 cm x 0.1 cm. The wound bed has a pink base. The surrounding skin is macerated and pink, and scarred tissue is present ( thicken wound edges). Assessment/Plan: Ms. Em is a 68 yo female with PMH significant for DM2, breast CA, MS with neurogenic bladder, recurrent UTI, and stage 2 pressure injury to her buttocks. Ms. Em presented to the emergency room for AMS and was found to have a UTI. She presented to the hospital with a stage 2 pressure injury to her buttocks. 1. Stage 2 pressure injury to the buttocks. This has been an ongoing issue for the patient. Reinforced with Mr. Em that scarred tissue is fragile and easily susceptible to breakdown. Continue to cover with xeroform which will keep the area moist and protect from any incontinence. Frequent turning and repositioning, and incontinence care. Will need to follow-up with Wound Center following discharge. Recommend checking a pre-albumin, to assist with further evaluation of her nutritional status. 2. Diabetes Mellitus, type 2. Maintain good glycemic control to help with wound healing. 3. Diet. Consistent Carbohydrate diet. 4. Code Status. Full Code Status. 5. Disposition. Disposition per primary medicine team. TIME SPENT: Time for this wound consult was 25 minutes, and 15 minutes was spent with the patient and her discussing past medical history; assessing, measuring and photographing the wounds. Wound Problem/Plan Is Patient a Wound Clinic Patient: Yes Current Treatment: Sudha Attending: Tamar Ramsey
--- NOTE | 2018-11-02 16:33 | PN ---
Subjective Date of Service: 11/02/18 Interval History: Per RN pt angry, disoriented in AM. Afebrile. No BM yet Family History: Unchanged from Admission Social History: Unchanged from Admission Past Medical History: Unchanged from Admission Objective Active Medications: Acetaminophen (Tylenol Tab*) 650 mg PO Q6H PRN PRN Reason: pain/fever Hydrocodone Bitart/Acetaminophen ([place] 5-325 Tab*) 1 tab PO Q6H PRN PRN Reason: PAIN Last Admin: 11/02/18 09:52 Dose: 1 tab Al Hydrox/Mg Hydrox/Simethicone (Maalox Plus*) 30 ml PO Q6H PRN PRN Reason: INDIGESTION Anastrozole (Arimidex (Nf)) 1 mg PO 1200 [facility] Last Admin: 11/02/18 12:53 Dose: 1 mg Atorvastatin Calcium (Lipitor*) 40 mg PO BEDTIME [facility] Last Admin: 11/01/18 20:45 Dose: 40 mg Baclofen (Lioresal Tab*) 20 mg PO QID [facility] Last Admin: 11/02/18 12:53 Dose: 20 mg Carbamazepine (Tegretol Tab(*)) 200 mg PO BID [facility] Last Admin: 11/02/18 09:54 Dose: 200 mg Dextrose (D50w Syringe 50 Ml*) 12.5 gm IV PUSH .FOR FS < 60 - SS PRN PRN Reason: FS < 60 Docusate Sodium (Colace Cap*) 100 mg PO BID [facility] Last Admin: 11/02/18 10:00 Dose: 100 mg Fluconazole (Diflucan 100 Mg Tab*) 200 mg PO DAILY [facility] Heparin Sodium (Porcine) (Heparin Vial(*)) 5,000 units SUBCUT Q8HR [facility] Last Admin: 11/02/18 12:54 Dose: 5,000 units Hydralazine HCl (Apresoline Iv*) 5 mg IV SLOW PU Q6H PRN PRN Reason: HTN Last Admin: 10/31/18 05:11 Dose: 5 mg Sodium Chloride (Ns 0.9% 1000 Ml) 1,000 mls @ 125 mls/hr IV PER RATE [facility] Last Admin: 11/02/18 11:11 Dose: 125 mls/hr Cefepime HCl (Maxipime 1 Gm In Dextrose Duplex (*)) 1 gm in 50 mls @ 100 mls/ hr IV Q12H [facility] Last Admin: 11/02/18 11:11 Dose: 100 mls/hr Insulin Glargine (Lantus(*)) 10 units SUBCUT Q24H [facility] Last Admin: 11/02/18 08:43 Dose: 10 unit Insulin Human Lispro (Humalog*) 0 units SUBCUT ACHS [facility]; Protocol Last Admin: 11/02/18 12:53 Dose: 4 units Lactulose (Lactulose*) 30 ml PO TID [facility] Stop: 11/02/18 21:01 Last Admin: 11/02/18 12:54 Dose: 30 ml Magnesium Hydroxide (Milk Of Magnesia Liq*) 30 ml PO Q4H PRN PRN Reason: CONSTIPATION Last Admin: 11/01/18 18:14 Dose: 30 ml Magnesium Oxide (Magox 400 Tab*) 800 mg PO DAILY [facility] Last Admin: 11/02/18 10:00 Dose: 800 mg Metoprolol Succinate (Toprol Xl Tab*) 100 mg PO QAM [facility] Last Admin: 11/02/18 09:55 Dose: 100 mg Metoprolol Tartrate (Lopressor Iv*) 5 mg IV Q6H [facility] Last Admin: 11/02/18 12:54 Dose: 5 mg Morphine Sulfate (Morphine Vial*) 1 mg IV Q4H PRN PRN Reason: PAIN - MILD Last Admin: 11/01/18 22:10 Dose: 1 mg Nystatin (Nystatin Top Powder*) 1 applic TOPICAL TID PRN PRN Reason: RASH Ondansetron HCl (Zofran Inj*) 4 mg IV Q6H PRN PRN Reason: NAUSEA Last Admin: 11/01/18 08:57 Dose: 4 mg Oxybutynin Chloride (Ditropan Tab*) 5 mg PO BID [facility] Last Admin: 11/02/18 09:56 Dose: 5 mg Polyvinyl Alcohol (Polyvinyl Alcohol 1.4% Opth*) 1 drop BOTH EYES Q2H PRN PRN Reason: DRY EYE Potassium Chloride (Klor Con Er Tab*) 20 meq PO DAILY [facility] Last Admin: 11/02/18 09:52 Dose: 20 meq Senna (Senokot Tab*) 1 tab PO DAILY [facility] Last Admin: 11/02/18 10:01 Dose: 1 tab Vital Signs - 8 hr 11/02/18 11/02/18 11/02/18 09:52 11:45 12:04 Temperature 97.9 F Pulse Rate 74 Respiratory 16 18 Rate Blood Pressure 95/60 150/90 (mmHg) O2 Sat by Pulse 98 Oximetry 11/02/18 11/02/18 12:18 14:12 Temperature 98.0 F Pulse Rate 78 Respiratory 16 19 Rate Blood Pressure 139/77 (mmHg) O2 Sat by Pulse 98 Oximetry Oxygen Devices in Use Now: None Appearance: NAD, anxious appearing Eyes: No Scleral Icterus Neck: NL Appearance and Movements; NL JVP, Trachea Midline Respiratory: Clear to Auscultation Cardiovascular: NL Sounds; No Murmurs; No JVD, RRR Abdominal: - - diffusely mildly tender. Extremities: No Edema Neurological: - - oriented to name and "hospital" but not year, city or president. Nutrition: Taking PO's Result Diagrams: 11/02/18 08:22 11/02/18 08:22 Additional Lab and Data: Laboratory Results - last 24 hr 11/01/18 11/01/18 11/01/18 11:37 16:33 19:44 WBC RBC Hgb Hct MCV MCH MCHC RDW Plt Count MPV Neut % (Auto) Lymph % (Auto) [place] % (Auto) Eos % (Auto) Baso % (Auto) Absolute Neuts (auto) Absolute Lymphs (auto) Absolute Monos (auto) Absolute Eos (auto) Absolute Basos (auto) Absolute Nucleated RBC Nucleated RBC % Sodium Potassium Chloride Carbon Dioxide Anion Gap BUN Creatinine Est GFR ( Amer) Est GFR (Non-Af Amer) BUN/Creatinine Ratio Glucose POC Glucose (mg/dL) 194 H 223 H 235 H Calcium C-Reactive Protein 11/02/18 11/02/18 11/02/18 07:59 08:22 08:22 WBC 11.0 H RBC 3.63 L Hgb 11.1 L Hct 33 L MCV 92 MCH 31 MCHC 33 RDW 16 H Plt Count 311 MPV 7.9 Neut % (Auto) 71.1 Lymph % (Auto) 17.2 [place] % (Auto) 8.6 Eos % (Auto) 2.6 Baso % (Auto) 0.5 Absolute Neuts (auto) 7.8 H Absolute Lymphs (auto) 1.9 Absolute Monos (auto) 0.9 H Absolute Eos (auto) 0.3 Absolute Basos (auto) 0.1 Absolute Nucleated RBC 0 Nucleated RBC % 0 Sodium 139 Potassium 3.7 Chloride 107 Carbon Dioxide 24 Anion Gap 8 BUN 6 Creatinine 0.69 Est GFR ( Amer) 102.7 Est GFR (Non-Af Amer) 84.9 BUN/Creatinine Ratio 8.7 Glucose 189 H POC Glucose (mg/dL) 181 H Calcium 8.4 L C-Reactive Protein 19.50 H 11/02/18 12:02 WBC RBC Hgb Hct MCV MCH MCHC RDW Plt Count MPV Neut % (Auto) Lymph % (Auto) [place] % (Auto) Eos % (Auto) Baso % (Auto) Absolute Neuts (auto) Absolute Lymphs (auto) Absolute Monos (auto) Absolute Eos (auto) Absolute Basos (auto) Absolute Nucleated RBC Nucleated RBC % Sodium Potassium Chloride Carbon Dioxide Anion Gap BUN Creatinine Est GFR ( Amer) Est GFR (Non-Af Amer) BUN/Creatinine Ratio Glucose POC Glucose (mg/dL) 221 H Calcium C-Reactive Protein Microbiology and Other Data: Microbiology 10/31/18 11:45 Blood Venous Aerobic Blood Culture - Preliminary No Growth Day 2 10/31/18 11:45 Blood Venous Anaerobic Blood Culture - Preliminary No Growth Day 2 10/30/18 09:44 Blood Venous Aerobic Blood Culture - Preliminary No Growth Day 3 10/30/18 09:44 Blood Venous Anaerobic Blood Culture - Preliminary No Growth Day 3 11/01/18 06:29 Blood Venous Aerobic Blood Culture - Preliminary No Growth Day 1 11/01/18 06:29 Blood Venous Anaerobic Blood Culture - Preliminary No Growth Day 1 10/30/18 09:55 Urine Urine Culture - Final Citrobacter Braakii 10/30/18 09:48 Nasal Influenza Types A,B Antigen - Final Specimen received for Influenza A/B Molecular testing Assess/Plan/Problems-Billing Assessment: 68 year old female PMH severe MS, neurogenic bladder requiring self cath, recrrent nephrolithiasis and UTIs including recent leelee albicans, Enterobacter Faecalis and Ecoli UTIs, left silicone ureteral stent exchanged 10/05 , sacral decubitis stage 2 p/w altered mental status, leukocytosis and Citrobacter Braakii >100K UTI. resistant to zosyn , currently on cefepimine. Planned stent exchange with Dr. Blanco 11/04 - Patient Problems (1) Citrobacter infection Current Visit: Yes Status: Acute Code(s): A49.8 - OTHER BACTERIAL INFECTIONS OF UNSPECIFIED SITE SNOMED Code(s): 549506047 Comment: appreciate ID recs. stopped levaquin (potential side effect of confusion) -> cefepemine Urology is back available lead radiation therapist and spoke about case with Dr. Blanco. He tentatively plans to exchange the stent on Saturday 11/04. Only effective day 2 of antibiotics given was resistant to zosyn and likely not covered by initial ampicillin. (2) Constipation Current Visit: No Status: Acute Priority: Medium Code(s): K59.00 - CONSTIPATION, UNSPECIFIED SNOMED Code(s): 40452072 Comment: -standing senna given opioid pain meds -c/w MoM prn, colace - lactulose TID and saline enema today. not yet effective - KUB 3/ with moderate stool in descending colon. no e/o obstruction. (3) Sacral decubitus ulcer, stage II Current Visit: No Status: Acute Code(s): L89.152 - PRESSURE ULCER OF SACRAL REGION, STAGE 2 SNOMED Code(s): 908929203 Comment: Continue local wound care and pressure relieving measures. Xeroform (4) Toxic metabolic encephalopathy Current Visit: No Status: Acute Code(s): G92 - TOXIC ENCEPHALOPATHY SNOMED Code(s): 238336435 Comment: - In setting of Citrobacter UTI- - underlying mental status is not great, likely with underlying dementia. For instance her baseline is not knowing the year or president. (5) DM2 (diabetes mellitus, type 2) Current Visit: No Status: Chronic Priority: Medium Comment: - holding home glipizide 5mg po BID. - SSI - POCT qachs - contine lantus 10U in AM - A1C 9.3 (6) Lower back pain Current Visit: No Status: Chronic Code(s): M54.5 - LOW BACK PAIN SNOMED Code(s): 450139183 Comment: likely 2/2 sacral decub, pyelo or constipation. (7) Multiple sclerosis Current Visit: No Status: Chronic Priority: High Code(s): G35 - MULTIPLE SCLEROSIS SNOMED Code(s): 97735325 Comment: Continue baclofen and tegretol (for muscle spasms, not seizures). (8) Neurogenic bladder Current Visit: No Status: Chronic Code(s): N31.9 - NEUROMUSCULAR DYSFUNCTION OF BLADDER, UNSPECIFIED SNOMED Code(s): 626308315 Comment: frandy currently. Status and Disposition: medicine inpatient. Awaiting Urology stent exchange 11/04
[2018-11-02] MEDS ORDERED: PEG 3000 GI LAVAGE* 1 GALLON PO ONE (16:52)
[2018-11-02] MEDS: Morphine VIAL* 4 MG/ML VIAL (1 ml vial) IV PRN (19:09)
--- NOTE | 2018-11-02 22:02 | PN ---
Progress Note - Progress Note Date of Service: 11/02/18 Note: Patient agitated and restless, refusing to take PO. Similar episode happened last night eventually did take her pills. Patient may benefit from seroquel when able to tolerate PO prior to her agitated events in the evening.
[2018-11-02] MEDS: Atorvastatin* 40 MG TAB PO SCH (22:11)
[2018-11-02] MEDS ORDERED: Haloperidol INJ IV/IM* 5 MG/ML AMP IV SLOW PU ONE (22:14)
[2018-11-02] MEDS ORDERED: Haloperidol INJ IV/IM* 5 MG/ML AMP ONE (22:19)
[2018-11-03] MEDS: Metoprolol Tartrate IV* 1 MG/ML 5 ML VIAL IV SCH ×3 (00:35→13:50)
[2018-11-03] MEDS: NS 0.9% 1000 ML** 1,000 ML IV SCH ×3 (04:01→23:54)
[2018-11-03] MEDS: Heparin VIAL(*) 5000 UNITS/ML VIAL (FIVE THOUSAND) SUBCUT SCH ×2 (05:38→13:50)
[2018-11-03] MEDS: Cefepime 1 GM in Dextrose(*) 1 GM/50 ML BAG IV SCH ×2 (09:01→21:03)
[2018-11-03] MEDS: Metoprolol Succinate XL TAB* 100 MG PO SCH (09:17)
[2018-11-03] MEDS: Senna TAB PO SCH ×2 (09:17→09:29)
[2018-11-03] MEDS: Oxybutynin TAB* 5 MG PO SCH ×2 (09:18→19:25)
[2018-11-03] MEDS: Baclofen TAB* 10 MG PO SCH ×4 (09:18→19:25)
[2018-11-03] MEDS: Fluconazole 100 MG TAB* TAB PO SCH (09:18)
[2018-11-03] MEDS: carBAMazepine TAB(*) 200 MG PO SCH ×2 (09:19→19:26)
[2018-11-03] MEDS: Docusate CAP* 100 MG PO SCH ×2 (09:19→09:29)
[2018-11-03] MEDS: Insulin GLARGINE(*) 1 UNITS UNIT SUBCUT SCH (09:25)
[2018-11-03] MEDS: Insulin LISPRO* 1 UNITS UNIT SUBCUT SCH ×4 (09:26→21:18)
[2018-11-03] MEDS: Potassium Chlor TAB* 20 MEQ TAB.ER PO SCH (09:29)
[2018-11-03] MEDS: Morphine VIAL* 4 MG/ML VIAL (1 ml vial) IV PRN ×3 (11:58→23:59)
[2018-11-03] MEDS: CMCS - Anastrozole (NF) 1 MG TAB PO SCH (12:01)
[2018-11-03] MEDS: HYDROcodone/ACETAMIN 5-325 MG* 1 TAB PO PRN ×2 (13:46→21:17)
--- NOTE | 2018-11-03 18:24 | PN ---
Subjective Date of Service: 11/03/18 Interval History: Pt agitated overnight and refusing to take medications. Administered haldol by overnight hospitalist and eventually took medications and slept through the night. reports he has seen his become altered and refuse to swallow meds in the past when with active infection. Family History: Unchanged from Admission Social History: Unchanged from Admission Past Medical History: Unchanged from Admission Objective Active Medications: Acetaminophen (Tylenol Tab*) 650 mg PO Q6H PRN PRN Reason: pain/fever Hydrocodone Bitart/Acetaminophen ([place] 5-325 Tab*) 1 tab PO Q6H PRN PRN Reason: PAIN Last Admin: 11/03/18 13:46 Dose: 1 tab Anastrozole (Arimidex (Nf)) 1 mg PO 1200 [facility] Last Admin: 11/03/18 12:01 Dose: 1 mg Atorvastatin Calcium (Lipitor*) 40 mg PO BEDTIME [facility] Last Admin: 11/02/18 22:11 Dose: Not Given Baclofen (Lioresal Tab*) 20 mg PO QID [facility] Last Admin: 11/03/18 16:59 Dose: 20 mg Carbamazepine (Tegretol Tab(*)) 200 mg PO BID [facility] Last Admin: 11/03/18 09:19 Dose: 200 mg Dextrose (D50w Syringe 50 Ml*) 12.5 gm IV PUSH .FOR FS < 60 - SS PRN PRN Reason: FS < 60 Enoxaparin Sodium (Lovenox(*)) 40 mg SUBCUT Q24H [facility] Fluconazole (Diflucan 100 Mg Tab*) 200 mg PO DAILY [facility] Last Admin: 11/03/18 09:18 Dose: 200 mg Haloperidol Lactate (Haldol Inj Iv/Im*) 1 mg IM BEDTIME PRN PRN Reason: AGITATION Sodium Chloride (Ns 0.9% 1000 Ml) 1,000 mls @ 125 mls/hr IV PER RATE [facility] Last Admin: 11/03/18 15:02 Dose: 125 mls/hr Cefepime HCl (Maxipime 1 Gm In Dextrose Duplex (*)) 1 gm in 50 mls @ 100 mls/ hr IV Q12H [facility] Last Admin: 11/03/18 09:01 Dose: 100 mls/hr Insulin Glargine (Lantus(*)) 10 units SUBCUT Q24H [facility] Last Admin: 11/03/18 09:25 Dose: 10 unit Insulin Human Lispro (Humalog*) 0 units SUBCUT ACHS [facility]; Protocol Last Admin: 11/03/18 18:36 Dose: 2 units Magnesium Hydroxide (Milk Of Magnesia Liq*) 30 ml PO Q4H PRN PRN Reason: CONSTIPATION Last Admin: 11/01/18 18:14 Dose: 30 ml Metoprolol Succinate (Toprol Xl Tab*) 100 mg PO QAM [facility] Last Admin: 11/03/18 09:17 Dose: 100 mg Morphine Sulfate (Morphine Vial*) 1 mg IV Q4H PRN PRN Reason: PAIN - MILD Last Admin: 11/03/18 17:02 Dose: 1 mg Nystatin (Nystatin Top Powder*) 1 applic TOPICAL TID PRN PRN Reason: RASH Ondansetron HCl (Zofran Inj*) 4 mg IV Q6H PRN PRN Reason: NAUSEA Last Admin: 11/01/18 08:57 Dose: 4 mg Oxybutynin Chloride (Ditropan Tab*) 5 mg PO BID [facility] Last Admin: 11/03/18 09:18 Dose: 5 mg Polyvinyl Alcohol (Polyvinyl Alcohol 1.4% Opth*) 1 drop BOTH EYES Q2H PRN PRN Reason: DRY EYE Potassium Chloride (Klor Con Er Tab*) 20 meq PO DAILY [facility] Last Admin: 11/03/18 09:29 Dose: 20 meq Senna (Senokot Tab*) 1 tab PO DAILY [facility] Last Admin: 11/03/18 09:29 Dose: Not Given Vital Signs - 8 hr 11/03/18 11/03/18 11/03/18 11:20 11:58 13:46 Temperature 98.5 F Pulse Rate 81 Respiratory 18 18 18 Rate Blood Pressure 121/64 (mmHg) O2 Sat by Pulse 95 Oximetry 11/03/18 11/03/18 11/03/18 14:00 14:05 14:10 Temperature 98.5 F Pulse Rate 81 Respiratory 19 Rate Blood Pressure 135/66 (mmHg) O2 Sat by Pulse 95 94 Oximetry 11/03/18 17:02 Temperature Pulse Rate Respiratory 18 Rate Blood Pressure (mmHg) O2 Sat by Pulse Oximetry Oxygen Devices in Use Now: Nasal Cannula Respiratory: Clear to Auscultation - anteriorly Cardiovascular: RRR Abdominal: - - no grimace or guarding on initial palpation; after talking w patient - reports pain on palpation; abd soft; BS normal Result Diagrams: 11/02/18 08:22 11/02/18 08:22 Microbiology and Other Data: Microbiology 10/31/18 11:45 Blood Venous Aerobic Blood Culture - Preliminary No Growth Day 2 10/31/18 11:45 Blood Venous Anaerobic Blood Culture - Preliminary No Growth Day 2 10/30/18 09:44 Blood Venous Aerobic Blood Culture - Preliminary No Growth Day 3 10/30/18 09:44 Blood Venous Anaerobic Blood Culture - Preliminary No Growth Day 3 11/01/18 06:29 Blood Venous Aerobic Blood Culture - Preliminary No Growth Day 1 11/01/18 06:29 Blood Venous Anaerobic Blood Culture - Preliminary No Growth Day 1 10/30/18 09:55 Urine Urine Culture - Final Citrobacter Braakii 10/30/18 09:48 Nasal Influenza Types A,B Antigen - Final Specimen received for Influenza A/B Molecular testing Assess/Plan/Problems-Billing 68 year old woman with severe MS, neurogenic bladder requiring self cath, recrrent nephrolithiasis and UTIs including recent leelee albicans, Enterobacter Faecalis and Ecoli, with left silicone ureteral stent exchanged 10/05 , sacral decubitis stage 2 who presented with altered mental status, leukocytosis and Citrobacter Braakii UTI resistant to Zosyn. Pt with delirium in hospital. Planned stent exchange with Dr. Blanco 11/04 - Patient Problems (1) Citrobacter infection Current Visit: Yes Comment: - appreciate ID recs: switched levaquin (11/01, potential side effect of confusion ) -> cefepemine (11/02 - ); ID started fluconazole (11/03 - ) - stent exchange Saturday 11/04. First 2 of antibiotics likely not effective given eventual S&S results with resistance to Zosyn. (2) Toxic metabolic encephalopathy Comment: In setting of Citrobacter UTI. Has history of delirium in hospital and with likely poor baseline at home. May have h/o MCI or demenita. - cont to treat infection as above - reorient, move to window bed - for agitation, first redirect, can try haldol IM 1mg nightly if needed (3) Sacral decubitus ulcer, stage II Current Visit: Yes Comment: - would care following - appreciate recs (4) HTN (hypertension) Current Visit: Yes Code(s): I10 - ESSENTIAL (PRIMARY) HYPERTENSION Comment: cont metoprolol succ 100mg daily; previously required losartan and amlodipine (5) DM2 (diabetes mellitus, type 2) Current Visit: Yes Comment: A1c 9.3% in Aug 2018. - holding home glipizide 5mg po BID. - cont glargine 10u with lispro SSI - POCT qachs (6) Abdominal bloating Current Visit: Yes Code(s): R14.0 - ABDOMINAL DISTENSION (GASEOUS) SNOMED Code(s): 111104610 Comment: Chronic issue when hospitalized. Also has been on opioids and experiencing constipation. KUB negative for obstruction but showing moderate stool 2 days ago - only one small BM since. - enema - increase bowel regimen (7) DVT prophylaxis Current Visit: Yes Comment: switch to lovenox Status and Disposition: medicine inpatient. Awaiting Urology stent exchange 11/04
[2018-11-03] MEDS ORDERED: Haloperidol INJ IV/IM* 5 MG/ML AMP IM PRN (18:39)
[2018-11-03] MEDS: Enoxaparin(*) 40 MG/0.4 ML SYR SUBCUT SCH (19:25)
[2018-11-03] MEDS: Atorvastatin* 40 MG TAB PO SCH (19:25)
[2018-11-04] MEDS: Insulin LISPRO* 1 UNITS UNIT SUBCUT SCH ×4 (07:27→21:12)
[2018-11-04] MEDS ORDERED: Sodium Citrate/Citric Acid* 15 ML UDC PO ONE (08:31)
[2018-11-04] MEDS ORDERED: Famotidine IV* 10 MG/ML 2 ML (20 mg) IV ONE (08:31)
[2018-11-04] MEDS ORDERED: Naloxone* 0.4 MG/ML 1 ML VIAL IV PRN (09:13)
[2018-11-04] MEDS ORDERED: DiMENhydriNATE IV* 50 MG/ML VIAL IV PUSH PRN (09:13)
[2018-11-04] MEDS: Cefepime 1 GM in Dextrose(*) 1 GM/50 ML BAG IV SCH ×2 (10:34→21:10)
--- NOTE | 2018-11-04 11:03 | OP ---
OPERATIVE REPORT: DATE OF OPERATION: 11/04/18 DATE OF : 52 SURGEON: Nando Blanco MD ANESTHESIOLOGIST: Dr. Navi Saini. ANESTHESIA: General. PRE-OP DIAGNOSES: 1. Left renal calculus. 2. Status post placement left ureteral stent. 3. History of urinary tract infections and sepsis. POST-OP DIAGNOSES: 1. Left renal calculus. 2. Status post placement left ureteral stent. 3. History of urinary tract infections and sepsis. OPERATIVE PROCEDURE: 1. Cystoscopy. 2. Left ureteroscopy and pyeloscopy. 3. Laser lithotripsy of left renal calculus (6 mm, lower pole). 4. Left retrograde pyelography and left ureteral stent exchange (8-Filipino). INDICATION FOR PROCEDURE: Mrs. Em is a 68-year-old white female who has multiple sclerosis, neurogenic bladder and was admitted a few weeks ago with urosepsis secondary to an obstructing 6 mm proximal left ureteral calculus. She had urgent placement of left ureteral stent. The stone migrated into the lower pole calyx. The patient was admitted about 4 days ago with fever and suspected recurrent infections. She has been on IV antibiotics and she is recovered from her infection. The patient was brought in with a plan of left ureteral stent exchange with possible ureteroscopy and pyeloscopy. PATHOLOGY: At fluoroscopy, the left ureteral stent was in good position. A radiopaque calculus was noted in the lower pole calyx. Upon left ureteral catheterization, the urine from the left kidney was clear indicating the absence of any significant infection. That prompted the decision to proceed with the ureteroscopy. At ureteroscopy, the proximal ureter looked normal. Pyeloscopy showed no lesions , or signs of fungal infection in the renal pelvis or the collecting system. A 6 -mm calculus that had gross appearance of calcium oxalate stone was noted in a lower pole calyx. Left retrograde pyelography showed [id number] hydronephrosis. DESCRIPTION OF PROCEDURE: After successful general anesthesia, the patient was placed in the lithotomy position and was prepped and draped for a cystoscopy. Cystoscopy was performed. The distal limb of the left ureteral stent was pulled out to the level of the the urethra. A flexible tip guidewire was introduced through the lumen of the stent and was positioned in the renal pelvis and the stent was removed. An open-ended catheter was then fed on top of the guidewire and positioned in the renal pelvis. There was clear, non-cloudy efflux from the left kidney. With the clear urine in the collecting system, decision was made to proceed with the ureteroscopy and pyeloscopy. A 12/14 access sheath was fed on top of the guidewire and positioned in the proximal ureter. A flexible ureteroscope was then introduced inside the access sheath and the proximal ureter and the renal pelvis were entered and inspected. The lower pole calyces were then inspected and the calculus was identified. Using a 200 micron laser fiber, the calculus was broken into several fragments. Some of the fragments were then moved into the renal pelvis and additional fragmentation was performed. At the completion of the procedure, there was good fragmentation of the stone with all the stone fragments did not exceed 3 mm in size. They were relatively too small to be extracted with the basket, and they should pass spontaneously once the stent is removed.. The ureteroscope was the removed. The guidewire was replaced through the access sheath and the access sheath was removed. Retrograde pyelography was performed. A size 8- Filipino stent was then placed with the proximal end coiling in the collecting system and the distal end coiling inside the bladder. There was good drainage of contrast from the kidney and no extravasation. A size 14-Filipino Mcwilliams catheter was then passed inside the bladder and the balloon inflated with 10 cc of water. The patient tolerated the procedure well and left the operating room in good condition. The plan is to observe the patient over the next day or two and to continue on her antibiotics. If she remains to be afebrile, she can be discharged home and the plan is to see her in the office in 7 to 10 days for stent removal. [id number]/[facility] #: [id number] [facility]
[2018-11-04] MEDS: Potassium Chlor TAB* 20 MEQ TAB.ER PO SCH (11:26)
[2018-11-04] MEDS: carBAMazepine TAB(*) 200 MG PO SCH ×2 (11:26→21:47)
[2018-11-04] MEDS: Senna TAB PO SCH (11:26)
[2018-11-04] MEDS: Insulin GLARGINE(*) 1 UNITS UNIT SUBCUT SCH (11:26)
[2018-11-04] MEDS: Metoprolol Succinate XL TAB* 100 MG PO SCH (11:27)
[2018-11-04] MEDS: Fluconazole 100 MG TAB* TAB PO SCH (11:27)
[2018-11-04] MEDS: Baclofen TAB* 10 MG PO SCH ×4 (11:27→21:15)
[2018-11-04] MEDS: Oxybutynin TAB* 5 MG PO SCH ×2 (11:27→21:14)
[2018-11-04] MEDS: CMCS - Anastrozole (NF) 1 MG TAB PO SCH (12:36)
[2018-11-04] MEDS: Lactated Ringers 1000 ML Bag* 1,000 ML IV SCH ×2 (12:37→23:43)
--- NOTE | 2018-11-04 15:42 | PN ---
Progress Note - Progress Note Date of Service: 11/04/18 SOAP: Subjective: CC: UTI HPI: 68 year old woman with MS and neurogenic bladder; obstructing left ureteral stone s/p stent and recurrent UTI. Admitted with encephalopathy. More energy and appetite today. No pain, fever, rash, or diarrhea. Objective: Vital Signs Temp 36.4 C 11/04/18 12:56 Pulse 87 11/04/18 12:56 Resp 14 11/04/18 12:56 BP 162/83 11/04/18 12:56 Pulse Ox 97 11/04/18 15:03 Intake & Output 11/03/18 11/04/18 11/04/18 18:59 06:59 18:59 Intake Total 1181 1784 1840 Output Total 400 2100 1925 Balance 781 -316 -85 Intake: IV Fluids 621 1729 1600 ABX - CEFEPIME 50 LR 600 NS (0.9%) 571 1729 1000 IVPB 55 ABX - CEFEPIME 55 Oral 560 0 240 Output: Urine 1500 Wise 400 2100 425 Other: # Bowel Movements 0 0 Gen:awake, no distress HEENT: no thrush Heart:RRR no murmur Lungs:CTA BL Abd:+BS NTND soft Skin: no rash MSK: no joint synovitis : wise catheter Laboratory Results - last 24 hr 11/03/18 11/03/18 11/03/18 11:29 17:19 21:04 POC Glucose (mg/dL) 209 H 160 H 232 H 11/04/18 11/04/18 11/04/18 07:22 08:11 11:33 POC Glucose (mg/dL) 172 H 174 H 184 H Assessment: 1. UTI and ureteral stent infection due to Citrobacter 2. left ureteral stent 3. neurogenic bladder with urinary retention 4. MS Plan: 1. continue cefepime 1 gm Q12hrs, dc fluconazole; can use doxycycline 100 mg po bid for discharge until time of stent removal
[2018-11-04] MEDS: Morphine VIAL* 4 MG/ML VIAL (1 ml vial) IV PRN (16:51)
--- NOTE | 2018-11-04 17:27 | PN ---
Subjective Interval History: Pt had L ureteral stent excange and lithotripsy of L renal calculus. She tolerated the procedures well. After procedure, she denied all symptoms. She was looking forward to her 's return to the hospital. She only reports wanting pepperoni pizza. No haldol requirements last night. Family History: Unchanged from Admission Social History: Unchanged from Admission Past Medical History: Unchanged from Admission Objective Active Medications: Acetaminophen (Tylenol Tab*) 650 mg PO Q6H PRN PRN Reason: pain/fever Amlodipine Besylate (Norvasc Tab*) 5 mg PO BEDTIME [facility] Anastrozole (Arimidex (Nf)) 1 mg PO 1200 [facility] Last Admin: 11/04/18 12:36 Dose: 1 mg Atorvastatin Calcium (Lipitor*) 40 mg PO BEDTIME [facility] Last Admin: 11/03/18 19:25 Dose: 40 mg Baclofen (Lioresal Tab*) 20 mg PO QID [facility] Last Admin: 11/04/18 16:52 Dose: 20 mg Carbamazepine (Tegretol Tab(*)) 200 mg PO BID [facility] Last Admin: 11/04/18 11:26 Dose: 200 mg Dextrose (D50w Syringe 50 Ml*) 12.5 gm IV PUSH .FOR FS < 60 - SS PRN PRN Reason: FS < 60 Enoxaparin Sodium (Lovenox(*)) 40 mg SUBCUT Q24H [facility] Last Admin: 11/03/18 19:25 Dose: 40 mg Haloperidol Lactate (Haldol Inj Iv/Im*) 1 mg IM BEDTIME PRN PRN Reason: AGITATION Cefepime HCl (Maxipime 1 Gm In Dextrose Duplex (*)) 1 gm in 50 mls @ 100 mls/ hr IV Q12H [facility] Last Admin: 11/04/18 10:34 Dose: 100 mls/hr Lactated Ringer's (Lactated Ringers 1000 Ml Bag*) 1,000 mls @ 100 mls/hr IV PER RATE [facility] Last Admin: 11/04/18 12:37 Dose: 100 mls/hr Insulin Glargine (Lantus(*)) 10 units SUBCUT Q24H [facility] Last Admin: 11/04/18 11:26 Dose: 10 unit Insulin Human Lispro (Humalog*) 0 units SUBCUT [facility]; Protocol Last Admin: 11/04/18 16:52 Dose: 4 units Lactulose (Lactulose*) 30 ml PO TID PRN PRN Reason: CONSTIPATION Magnesium Hydroxide (Milk Of Magnesia Liq*) 30 ml PO Q4H PRN PRN Reason: CONSTIPATION Last Admin: 11/01/18 18:14 Dose: 30 ml Metoprolol Succinate (Toprol Xl Tab*) 100 mg PO QAM [facility] Last Admin: 11/04/18 11:27 Dose: 100 mg Nystatin (Nystatin Top Powder*) 1 applic TOPICAL TID PRN PRN Reason: RASH Ondansetron HCl (Zofran Inj*) 4 mg IV Q6H PRN PRN Reason: NAUSEA Last Admin: 11/01/18 08:57 Dose: 4 mg Oxybutynin Chloride (Ditropan Tab*) 5 mg PO BID [facility] Last Admin: 11/04/18 11:27 Dose: 5 mg Polyvinyl Alcohol (Polyvinyl Alcohol 1.4% Opth*) 1 drop BOTH EYES Q2H PRN PRN Reason: DRY EYE Potassium Chloride (Klor Con Er Tab*) 20 meq PO DAILY [facility] Last Admin: 11/04/18 11:26 Dose: 20 meq Senna (Senokot Tab*) 1 tab PO DAILY [facility] Last Admin: 11/04/18 11:26 Dose: 1 tab Vital Signs - 8 hr 11/04/18 11/04/18 11/04/18 10:00 10:05 10:10 Temperature 97.0 F Pulse Rate 90 84 95 Respiratory 14 16 11 Rate Blood Pressure 165/89 167/102 173/112 (mmHg) O2 Sat by Pulse 97 99 99 Oximetry 11/04/18 11/04/18 11/04/18 10:13 10:15 10:18 Temperature Pulse Rate 87 87 91 Respiratory 11 Rate Blood Pressure 171/101 159/88 (mmHg) O2 Sat by Pulse 99 99 96 Oximetry 11/04/18 11/04/18 11/04/18 10:20 10:30 12:01 Temperature 96.7 F Pulse Rate 97 90 89 Respiratory 15 10 14 Rate Blood Pressure 160/89 156/93 167/91 (mmHg) O2 Sat by Pulse 95 100 99 Oximetry 11/04/18 11/04/18 11/04/18 12:56 15:03 16:51 Temperature 97.6 F Pulse Rate 87 Respiratory 14 16 Rate Blood Pressure 162/83 (mmHg) O2 Sat by Pulse 96 97 Oximetry Oxygen Devices in Use Now: None Appearance: better spirits, NAD Respiratory: - - clear anteriorly Cardiovascular: RRR Abdominal: NL Sounds; No Tenderness; No Distention Extremities: No Edema Neurological: - - AOx2 (name, hospital), some incoherent responses to questions Result Diagrams: 11/02/18 08:22 11/02/18 08:22 Microbiology and Other Data: Microbiology 10/30/18 09:55 Urine Urine Culture - Final Citrobacter Braakii Assess/Plan/Problems-Billing Assessment: 68 year old woman with severe MS, neurogenic bladder requiring self cath, recrrent nephrolithiasis and UTIs including recent leelee albicans, Enterobacter faecalis and E. coli, sacral decubitis stage 2, mild cognitive impairment, who presented with altered mental status and leukocytosis, found with Citrobacter Braakii UTI resistant to Zosyn. Pt with delirium in hospital improved with abx and stent exchange on 11/04. - Patient Problems (1) Citrobacter infection Comment: s/p stent exchange with Uro on 11/04. Presenting symptom was AMS - now near baseline. - appreciate ID recs: switched levaquin (11/01, potential side effect of confusion ) -> cefepemine (11/02 - ); ID started fluconazole (11/03 - 11/04); recommending doxy on discharge until stent removed around 11/14 (2) Toxic metabolic encephalopathy Comment: In setting of Citrobacter UTI. Has history of delirium in hospital and with likely poor baseline at home. May have h/o MCI or demenita. - cont to treat infection as above - reorient, move to window bed - for agitation, first redirect, can try haldol IM 1mg nightly if needed (3) Sacral decubitus ulcer, stage II Current Visit: Yes Comment: - would care following - appreciate recs (4) HTN (hypertension) Code(s): I10 - ESSENTIAL (PRIMARY) HYPERTENSION Comment: - cont metoprolol succ 100mg daily - add amlodipine 5mg nightly (5) DM2 (diabetes mellitus, type 2) Current Visit: Yes Comment: A1c 9.3% in Aug 2018. - holding home glipizide 5mg po BID. - cont glargine 10u with lispro SSI - POCT qachs (6) Abdominal bloating Current Visit: Yes Code(s): R14.0 - ABDOMINAL DISTENSION (GASEOUS) SNOMED Code(s): 721441700 Comment: Chronic issue when hospitalized. Also has been on opioids and experiencing constipation. KUB negative for obstruction but showing moderate stool. Now s/p BM yesterday. - cont bowel regimen - stop opioids (7) DVT prophylaxis Current Visit: Yes Comment: cont lovenox Status and Disposition: Will need to f/u with uro within 1 week of discharge. Currently being observed after urologic procedure.
[2018-11-04] MEDS: Enoxaparin(*) 40 MG/0.4 ML SYR SUBCUT SCH (21:13)
[2018-11-04] MEDS: amLODIPine TAB* 5 MG PO SCH (21:14)
[2018-11-04] MEDS: Atorvastatin* 40 MG TAB PO SCH (21:15)
[2018-11-05 08:19] LABS: ABS Basophils 0.1 10^3/ul (0-0.2); ABS Eosinophils 0.1 10^3/ul (0-0.6); ABS Lymphocytes 0.8 10^3/ul (1.0-4.8); ABS Monocytes 0.7 10^3/ul (0-0.8); ABS Neutrophils 7.1 10^3/ul (1.5-7.7); ABS Nucleated RBC 0 10^3/ul; Hematocrit 34 % (35-47); Hemoglobin 11.5 g/dl (12.0-16.0); Lymphocyte % 9.5 %; Mean Corpuscular HGB Conc 33 g/dl (31-36); Mean Corpuscular Hemoglobin 30 pg (27-31); Mean Corpuscular Volume 90 fL (80-97); Mean Platelet Volume 8.2 fL (7.4-10.4); Nucleated Red Blood Cells % 0; Platelet Count 286 10^3/ul (150-450); Red Cell Distribution Width 15 % (10.5-15); White Blood Count 8.9 10^3/ul (3.5-10.8)
[2018-11-05 09:17] LABS: BUN/Creatinine Ratio 11.8 (8-20); Calcium 8.6 mg/dL (8.6-10.3); EGFR African American 104.4 (>60); EGFR Non-African American 86.3 (>60); Potassium 3.6 mmol/L (3.5-5.0)
[2018-11-05] MEDS: Cefepime 1 GM in Dextrose(*) 1 GM/50 ML BAG IV SCH (09:19)
[2018-11-05] MEDS: Insulin LISPRO* 1 UNITS UNIT SUBCUT SCH ×3 (09:47→18:14)
[2018-11-05] MEDS: Insulin GLARGINE(*) 1 UNITS UNIT SUBCUT SCH (09:47)
[2018-11-05] MEDS: Oxybutynin TAB* 5 MG PO SCH (09:48)
[2018-11-05] MEDS: Baclofen TAB* 10 MG PO SCH ×3 (09:48→18:13)
[2018-11-05] MEDS: DOXYcycline CAP(*) 100 MG PO SCH (09:48)
[2018-11-05] MEDS: Potassium Chlor TAB* 20 MEQ TAB.ER PO SCH (09:48)
[2018-11-05] MEDS: carBAMazepine TAB(*) 200 MG PO SCH (09:48)
[2018-11-05] MEDS: Senna TAB PO SCH (09:48)
[2018-11-05] MEDS: Metoprolol Succinate XL TAB* 100 MG PO SCH (09:48)
[2018-11-05] MEDS: CMCS - Anastrozole (NF) 1 MG TAB PO SCH (13:02)
--- NOTE | 2018-11-05 19:29 | PN ---
Subjective Interval History: Pt confused more than baseline this AM, thinking she was in a hair salon, but quickly was able to respond appropriately to questions and again reported being in a hospital. Urology cleared PT for discharge but asking to stay another day to ensure mental status is stable. Pt now on PO antibiotics. Post- procedural KUB with new 2mm stone distal to stent. Plan for DC tomorrow. Family History: Unchanged from Admission Social History: Unchanged from Admission Past Medical History: Unchanged from Admission Objective Active Medications: Acetaminophen (Tylenol Tab*) 650 mg PO Q6H PRN PRN Reason: pain/fever Last Admin: 11/05/18 18:14 Dose: 650 mg Amlodipine Besylate (Norvasc Tab*) 5 mg PO BEDTIME [facility] Last Admin: 11/04/18 21:14 Dose: 5 mg Anastrozole (Arimidex (Nf)) 1 mg PO 1200 [facility] Last Admin: 11/05/18 13:02 Dose: 1 mg Atorvastatin Calcium (Lipitor*) 40 mg PO BEDTIME [facility] Last Admin: 11/04/18 21:15 Dose: 40 mg Baclofen (Lioresal Tab*) 20 mg PO QID [facility] Last Admin: 11/05/18 18:13 Dose: 20 mg Carbamazepine (Tegretol Tab(*)) 200 mg PO BID [facility] Last Admin: 11/05/18 09:48 Dose: 200 mg Dextrose (D50w Syringe 50 Ml*) 12.5 gm IV PUSH .FOR FS < 60 - SS PRN PRN Reason: FS < 60 Doxycycline Hyclate (Vibramycin Cap(*)) 100 mg PO BID [facility] Last Admin: 11/05/18 09:48 Dose: 100 mg Enoxaparin Sodium (Lovenox(*)) 40 mg SUBCUT Q24H [facility] Last Admin: 11/04/18 21:13 Dose: 40 mg Haloperidol Lactate (Haldol Inj Iv/Im*) 1 mg IM BEDTIME PRN PRN Reason: AGITATION Insulin Glargine (Lantus(*)) 10 units SUBCUT Q24H [facility] Last Admin: 11/05/18 09:47 Dose: 10 unit Insulin Human Lispro (Humalog*) 0 units SUBCUT ACHS [facility]; Protocol Last Admin: 11/05/18 18:14 Dose: 4 units Lactulose (Lactulose*) 30 ml PO TID PRN PRN Reason: CONSTIPATION Metoprolol Succinate (Toprol Xl Tab*) 100 mg PO QAM [facility] Last Admin: 11/05/18 09:48 Dose: 100 mg Nystatin (Nystatin Top Powder*) 1 applic TOPICAL TID PRN PRN Reason: RASH Oxybutynin Chloride (Ditropan Tab*) 5 mg PO BID [facility] Last Admin: 11/05/18 09:48 Dose: 5 mg Polyvinyl Alcohol (Polyvinyl Alcohol 1.4% Opth*) 1 drop BOTH EYES Q2H PRN PRN Reason: DRY EYE Potassium Chloride (Klor Con Er Tab*) 20 meq PO DAILY [facility] Last Admin: 11/05/18 09:48 Dose: 20 meq Senna (Senokot Tab*) 1 tab PO DAILY [facility] Last Admin: 11/05/18 09:48 Dose: 1 tab Vital Signs - 8 hr 11/05/18 11/05/18 11/05/18 11:56 14:25 15:43 Temperature 98.1 F 98.8 F Pulse Rate 80 96 Respiratory 20 20 Rate Blood Pressure 120/63 144/79 (mmHg) O2 Sat by Pulse 94 94 93 Oximetry Oxygen Devices in Use Now: None Appearance: supine, nontoxic Ears/Nose/Mouth/Throat: Mucous Membranes Moist Respiratory: - - clear anteriorly Abdominal: - - soft, nontender, no suprapubic tenderness Extremities: No Edema Neurological: - - AOx2 (knows 's name, knows hospital but not name), responds appropriately to questions Result Diagrams: 11/05/18 07:53 11/05/18 07:53 Additional Lab and Data: Laboratory Tests 10/30/18 10:51 Albumin 4.1 Microbiology and Other Data: Microbiology 10/31/18 11:45 Blood Venous Aerobic Blood Culture - Preliminary No Growth Day 1 10/31/18 11:45 Blood Venous Anaerobic Blood Culture - Preliminary No Growth Day 1 10/30/18 09:44 Blood Venous Aerobic Blood Culture - Preliminary No Growth Day 2 10/30/18 09:44 Blood Venous Anaerobic Blood Culture - Preliminary No Growth Day 2 10/30/18 09:55 Urine Urine Culture - Final Citrobacter Braakii 10/30/18 09:48 Nasal Influenza Types A,B Antigen - Final Specimen received for Influenza A/B Molecular testing Assess/Plan/Problems-Billing Assessment: 68 year old woman with severe MS, neurogenic bladder requiring self cath, recrrent nephrolithiasis and UTIs including recent leelee albicans, Enterobacter faecalis and E. coli, sacral decubitis stage 2, mild cognitive impairment, who presented with altered mental status and leukocytosis, found with Citrobacter Braakii UTI resistant to Zosyn. Pt with delirium in hospital improved with abx and stent exchange on 11/04. Now on PO doxycycline and likely home 11/06. - Patient Problems (1) Citrobacter infection Comment: s/p stent exchange with Uro on 11/04. Presenting symptom was AMS - now near baseline. - appreciate ID recs: switched levaquin (11/01, potential side effect of confusion ) -> cefepemine (11/02 - 11/05); now doxy PO (11/05 - ) until after stent removal as outpatient - ID started fluconazole (11/03 - 11/04) (2) Toxic metabolic encephalopathy Comment: In setting of Citrobacter UTI. Has history of delirium in hospital and with likely poor baseline at home. May have h/o MCI or demenita. - cont to treat infection as above - reorient, window bed - for agitation, first redirect, can try haldol IM 1mg nightly if needed (3) Sacral decubitus ulcer, stage II Comment: - would care following - appreciate recs (4) HTN (hypertension) Comment: - cont metoprolol succ 100mg daily - continue amlodipine 5mg nightly (5) DM2 (diabetes mellitus, type 2) Comment: A1c 9.3% in Aug 2018. - holding home glipizide 5mg po BID. - cont glargine 10u with lispro SSI (6) Abdominal bloating Comment: Chronic issue when hospitalized. Also has been on opioids and experiencing constipation. KUB negative for obstruction but showing moderate stool. Symptoms improved with DM. - cont bowel regimen - avoid opioids (7) DVT prophylaxis Comment: cont lovenox Status and Disposition: Will need to f/u with uro within 1 week of discharge. declining home services.
[2018-11-05] MEDS: Enoxaparin(*) 40 MG/0.4 ML SYR SUBCUT SCH (19:52)
[2018-11-05] MEDS: Ibuprofen TAB* 400 MG PO PRN (22:08)
--- NOTE | 2018-11-05 22:33 | PN ---
Hospitalist Progress Note Date of Service: 11/05/18 Called by RN due to increasing lethargy and has not received any recent sedatives. Will check CT head non contrast, EEG, serum prolactin and neurochecks q4H as ordered. Will await result of CT head and continue to monitor MS. VS stable. Advised to recheck FS.
[2018-11-06] MEDS: amLODIPine TAB* 5 MG PO SCH ×2 (03:19→20:22)
[2018-11-06] MEDS: Atorvastatin* 40 MG TAB PO SCH ×2 (03:20→20:23)
[2018-11-06] MEDS: Baclofen TAB* 10 MG PO SCH ×5 (03:21→20:22)
[2018-11-06] MEDS: DOXYcycline CAP(*) 100 MG PO SCH ×2 (03:21→20:22)
[2018-11-06] MEDS: Oxybutynin TAB* 5 MG PO SCH ×3 (03:21→20:22)
[2018-11-06] MEDS: carBAMazepine TAB(*) 200 MG PO SCH ×3 (03:21→20:22)
[2018-11-06] MEDS: Insulin LISPRO* 1 UNITS UNIT SUBCUT SCH ×5 (03:22→21:28)
[2018-11-06] MEDS: DOXYcycline IV* 100 MG in NS 0.9% 250 ML* 250 ML IVPB SCH ×3 (05:36→17:22)
[2018-11-06] MEDS: Metoprolol Succinate XL TAB* 100 MG PO SCH (09:23)
[2018-11-06] MEDS: Senna TAB PO SCH (09:23)
[2018-11-06] MEDS: Potassium Chlor TAB* 20 MEQ TAB.ER PO SCH (09:23)
[2018-11-06] MEDS: Insulin GLARGINE(*) 1 UNITS UNIT SUBCUT SCH (09:23)
--- NOTE | 2018-11-06 10:37 | PN ---
Subjective Date of Service: 11/06/18 Interval History: HD # 7 on 11/06 68 year old woman with severe MS, neurogenic bladder requiring self cath, recrrent nephrolithiasis and UTIs including recent leelee albicans, Enterobacter faecalis and E. coli, sacral decubitis stage 2, mild cognitive impairment, who presented with altered mental status and leukocytosis. Overnight, became acutely lethargic, stat Head CT neg, ammonia and prolactin neg. VSS, most c/w delerium, likely hospital induced. Apparently during this time failed swallow and all meds changed to IV, this morning passed swallow, thus advance diet Seen this morning with at bedside, pt is back to her baseline, though admits weaker than usual. Patient herself offers no complaints, limited awareness of the events of this hospitalization and of her delirium. She is pleasant hungry, and would like to go home. Still with wise cath in, she reports she can self cath. No pain, no other complaints Long discussion with at bedside, discuss this may be her new baseline, he declines home services or evaluation of TIANNA. He does express understanding that this recent string of hospitalizations and complications may represent a decline in her functional status. Family History: Unchanged from Admission Social History: Unchanged from Admission Past Medical History: Unchanged from Admission Objective Active Medications: Acetaminophen (Tylenol Tab*) 650 mg PO Q6H PRN PRN Reason: pain/fever Last Admin: 11/05/18 18:14 Dose: 650 mg Amlodipine Besylate (Norvasc Tab*) 5 mg PO BEDTIME [facility] Last Admin: 11/06/18 03:19 Dose: Not Given Anastrozole (Arimidex (Nf)) 1 mg PO 1200 [facility] Last Admin: 11/05/18 13:02 Dose: 1 mg Atorvastatin Calcium (Lipitor*) 40 mg PO BEDTIME [facility] Last Admin: 11/06/18 03:20 Dose: Not Given Baclofen (Lioresal Tab*) 20 mg PO QID [facility] Last Admin: 11/06/18 09:23 Dose: 20 mg Carbamazepine (Tegretol Tab(*)) 200 mg PO BID [facility] Last Admin: 11/06/18 09:23 Dose: 200 mg Dextrose (D50w Syringe 50 Ml*) 12.5 gm IV PUSH .FOR FS < 60 - SS PRN PRN Reason: FS < 60 Enoxaparin Sodium (Lovenox(*)) 40 mg SUBCUT Q24H [facility] Last Admin: 11/05/18 19:52 Dose: 40 mg Haloperidol Lactate (Haldol Inj Iv/Im*) 1 mg IM BEDTIME PRN PRN Reason: AGITATION Doxycycline Hyclate 100 mg/ (Sodium Chloride) 250 mls @ 250 mls/hr IVPB Q12H [facility] Last Admin: 11/06/18 05:36 Dose: 250 mls/hr Ibuprofen (Motrin Tab*) 400 mg PO Q8H PRN PRN Reason: PAIN Insulin Glargine (Lantus(*)) 10 units SUBCUT Q24H [facility] Last Admin: 11/06/18 09:23 Dose: 10 unit Insulin Human Lispro (Humalog*) 0 units SUBCUT [facility]; Protocol Last Admin: 11/06/18 09:23 Dose: 2 units Lactulose (Lactulose*) 30 ml PO TID PRN PRN Reason: CONSTIPATION Metoprolol Succinate (Toprol Xl Tab*) 100 mg PO QAM [facility] Last Admin: 11/06/18 09:23 Dose: 100 mg Nystatin (Nystatin Top Powder*) 1 applic TOPICAL TID PRN PRN Reason: RASH Oxybutynin Chloride (Ditropan Tab*) 5 mg PO BID [facility] Last Admin: 11/06/18 09:23 Dose: 5 mg Polyvinyl Alcohol (Polyvinyl Alcohol 1.4% Opth*) 1 drop BOTH EYES Q2H PRN PRN Reason: DRY EYE Potassium Chloride (Klor Con Er Tab*) 20 meq PO DAILY [facility] Last Admin: 11/06/18 09:23 Dose: 20 meq Senna (Senokot Tab*) 1 tab PO DAILY [facility] Last Admin: 11/06/18 09:23 Dose: 1 tab Vital Signs - 8 hr 11/06/18 11/06/18 03:10 07:43 Temperature 98.7 F 98.5 F Pulse Rate 77 77 Respiratory 14 16 Rate Blood Pressure 130/70 112/54 (mmHg) O2 Sat by Pulse 93 95 Oximetry Oxygen Devices in Use Now: None Appearance: Woman in bed, frequently blinking but follows commands and tracks examiner, answers basic questions, repeats herself. Pleasant Eyes: No Scleral Icterus, PERRLA Ears/Nose/Mouth/Throat: NL Teeth, Lips, Gums Neck: NL Appearance and Movements; NL JVP Respiratory: Clear to Auscultation Cardiovascular: NL Sounds; No Murmurs; No JVD, RRR Abdominal: NL Sounds; No Tenderness; No Distention, No Hepatosplenomegaly Lymphatic: No Cervical Adenopathy Extremities: No Edema Skin: - - Stage 2 Decub Neurological: - - 5/5 strenght upper ext, no strength to gravity lower ext Lines/Tubes/Other Access: Clean, Dry and Intact Wise - Will remove Result Diagrams: 11/05/18 07:53 11/05/18 07:53 Additional Lab and Data: Laboratory Tests 10/30/18 10:51 Albumin 4.1 Microbiology and Other Data: Microbiology 10/31/18 11:45 Blood Venous Aerobic Blood Culture - Preliminary No Growth Day 1 10/31/18 11:45 Blood Venous Anaerobic Blood Culture - Preliminary No Growth Day 1 10/30/18 09:44 Blood Venous Aerobic Blood Culture - Preliminary No Growth Day 2 10/30/18 09:44 Blood Venous Anaerobic Blood Culture - Preliminary No Growth Day 2 10/30/18 09:55 Urine Urine Culture - Final Citrobacter Braakii 10/30/18 09:48 Nasal Influenza Types A,B Antigen - Final Specimen received for Influenza A/B Molecular testing Assess/Plan/Problems-Billing Assessment: 68 year old woman with severe MS, neurogenic bladder requiring self cath, recrrent nephrolithiasis and UTIs including recent leelee albicans, Enterobacter faecalis and E. coli, sacral decubitis stage 2, mild cognitive impairment, who presented with altered mental status and leukocytosis, found with Citrobacter Braakii UTI resistant to Zosyn. Pt with delirium in hospital improved with abx and stent exchange on 11/04. Now on PO doxycycline - Patient Problems (1) Altered mental state Current Visit: No Status: Acute Priority: High Code(s): R41.82 - ALTERED MENTAL STATUS, UNSPECIFIED SNOMED Code(s): 987576224 Comment: --Likely delirium from being hospitalized and infected. She has waxing and waining mental status --She has had neg head CT, Ammonia, prolactin --Will do chart review for standard delerium w/u TSH, B12, Folate (2) Toxic metabolic encephalopathy Current Visit: Yes Status: Acute Code(s): G92 - TOXIC ENCEPHALOPATHY SNOMED Code(s): 027077520 Comment: In setting of Citrobacter UTI. Has history of delirium in hospital and with likely poor baseline at home. Seems baseline MCI or demenita. - cont to treat infection as above - reorient, window bed - for agitation, first redirect, can try haldol IM 1mg nightly if needed (3) Citrobacter infection Current Visit: Yes Status: Acute Code(s): A49.8 - OTHER BACTERIAL INFECTIONS OF UNSPECIFIED SITE SNOMED Code(s): 065119889 Comment: s/p stent exchange with Uro on 11/04. Presenting symptom was AMS - now near baseline. - appreciate ID recs: switched levaquin (11/01, potential side effect of confusion ) -> cefepemine (11/02 - 11/05); now doxy PO (11/05 - ) until after stent removal as outpatient - ID started fluconazole (11/03 - 11/04), continue for known hx of leelee - Will remove wise cath today and straight cath q8 hours (4) Sacral decubitus ulcer, stage II Current Visit: Yes Status: Acute Priority: Medium Code(s): L89.152 - PRESSURE ULCER OF SACRAL REGION, STAGE 2 SNOMED Code(s): 891410880 Comment: --would care following - appreciate recs (5) HTN (hypertension) Current Visit: Yes Status: Chronic Priority: Medium Code(s): I10 - ESSENTIAL (PRIMARY) HYPERTENSION SNOMED Code(s): 75003432 Comment: - cont metoprolol succ 100mg daily - continue amlodipine 5mg nightly (6) DM2 (diabetes mellitus, type 2) Current Visit: Yes Status: Chronic Priority: Medium Comment: A1c 9.3% in Aug 2018. - holding home glipizide 5mg po BID. - cont glargine 10u with lispro SSI (7) DVT prophylaxis Current Visit: Yes Status: Acute Code(s): FBP2401 - SNOMED Code(s): 391223338 Comment: cont lovenox (8) Full code status Current Visit: No Status: Acute Code(s): Z78.9 - OTHER SPECIFIED HEALTH STATUS SNOMED Code(s): 587479122 Status and Disposition: Will need to f/u with uro within 1 week of discharge. declining home services or discussion with palliative. Stable for d/c 11/07
[2018-11-06] MEDS: CMCS - Anastrozole (NF) 1 MG TAB PO SCH (13:26)
[2018-11-06] MEDS: Enoxaparin(*) 40 MG/0.4 ML SYR SUBCUT SCH (20:23)
[2018-11-06] MEDS: Ibuprofen TAB* 400 MG PO PRN (21:07)
[2018-11-07 07:17] LABS: ABS Basophils 0.1 10^3/ul (0-0.2); ABS Eosinophils 0.2 10^3/ul (0-0.6); ABS Lymphocytes 1.5 10^3/ul (1.0-4.8); ABS Monocytes 0.6 10^3/ul (0-0.8); ABS Neutrophils 2.3 10^3/ul (1.5-7.7); ABS Nucleated RBC 0 10^3/ul; Eosinophil % 5.1 %; Hematocrit 46 % (35-47); Hemoglobin 14.8 g/dl (12.0-16.0); Mean Corpuscular HGB Conc 32 g/dl (31-36); Mean Corpuscular Hemoglobin 29 pg (27-31); Mean Corpuscular Volume 92 fL (80-97); Mean Platelet Volume 8.3 fL (7.4-10.4); Nucleated Red Blood Cells % 0.1; Platelet Count 178 10^3/ul (150-450); Red Blood Count 5.05 10^6/ul (4.00-5.40); Red Cell Distribution Width 16 % (10.5-15); White Blood Count 4.8 10^3/ul (3.5-10.8)
[2018-11-07 07:19] LABS: Calcium 8.7 mg/dL (8.6-10.3); Potassium 3.8 mmol/L (3.5-5.0)
[2018-11-07 07:25] LABS: BUN/Creatinine Ratio 17.2 (8-20); EGFR Non-African American 92.6 (>60)
[2018-11-07] MEDS: Senna TAB PO SCH (09:06)
[2018-11-07] MEDS: DOXYcycline CAP(*) 100 MG PO SCH (09:06)
[2018-11-07] MEDS: Metoprolol Succinate XL TAB* 100 MG PO SCH (09:06)
[2018-11-07] MEDS: carBAMazepine TAB(*) 200 MG PO SCH (09:06)
[2018-11-07] MEDS: Potassium Chlor TAB* 20 MEQ TAB.ER PO SCH (09:07)
[2018-11-07] MEDS: Oxybutynin TAB* 5 MG PO SCH (09:07)
[2018-11-07] MEDS: Baclofen TAB* 10 MG PO SCH ×2 (09:07→13:23)
[2018-11-07] MEDS: Insulin GLARGINE(*) 1 UNITS UNIT SUBCUT SCH (09:07)
[2018-11-07] MEDS: Insulin LISPRO* 1 UNITS UNIT SUBCUT SCH ×2 (09:08→13:23)
--- NOTE | 2018-11-07 09:15 | PN ---
Subjective Date of Service: 11/07/18 Interval History: HD # 8 bon 11/07 68 year old woman with severe MS, neurogenic bladder requiring self cath, recrrent nephrolithiasis and UTIs including recent leelee albicans, Enterobacter faecalis and E. coli, sacral decubitis stage 2, mild cognitive impairment, who presented with altered mental status and leukocytosis. Overnight, no acute events. VSS Seen this morning with at bedside, pt is back to her baseline, though admits weaker than usual and seems quite angry, refusing care "I'm sick of being here" - seems appropriately scared to take her home and we discuss considering VNS or other aspects of care again. He seems more open, Long discussion with at bedside, discuss this may be her new baseline. He does express understanding that this recent string of hospitalizations and complications may represent a decline in her functional status. Family History: Unchanged from Admission Social History: Unchanged from Admission Past Medical History: Unchanged from Admission Objective Active Medications: Acetaminophen (Tylenol Tab*) 650 mg PO Q6H PRN PRN Reason: pain/fever Last Admin: 11/05/18 18:14 Dose: 650 mg Amlodipine Besylate (Norvasc Tab*) 5 mg PO BEDTIME [facility] Last Admin: 11/06/18 20:22 Dose: 5 mg Anastrozole (Arimidex (Nf)) 1 mg PO 1200 [facility] Last Admin: 11/06/18 13:26 Dose: 1 mg Atorvastatin Calcium (Lipitor*) 40 mg PO BEDTIME [facility] Last Admin: 11/06/18 20:23 Dose: 40 mg Baclofen (Lioresal Tab*) 20 mg PO QID [facility] Last Admin: 11/06/18 20:22 Dose: 20 mg Carbamazepine (Tegretol Tab(*)) 200 mg PO BID [facility] Last Admin: 11/06/18 20:22 Dose: 200 mg Dextrose (D50w Syringe 50 Ml*) 12.5 gm IV PUSH .FOR FS < 60 - SS PRN PRN Reason: FS < 60 Doxycycline Hyclate (Vibramycin Cap(*)) 100 mg PO BID [facility] Last Admin: 11/06/18 20:22 Dose: 100 mg Enoxaparin Sodium (Lovenox(*)) 40 mg SUBCUT Q24H [facility] Last Admin: 11/06/18 20:23 Dose: 40 mg Haloperidol Lactate (Haldol Inj Iv/Im*) 1 mg IM BEDTIME PRN PRN Reason: AGITATION Ibuprofen (Motrin Tab*) 400 mg PO Q8H PRN PRN Reason: PAIN Last Admin: 11/06/18 21:07 Dose: 400 mg Insulin Glargine (Lantus(*)) 10 units SUBCUT Q24H [facility] Last Admin: 11/06/18 09:23 Dose: 10 unit Insulin Human Lispro (Humalog*) 0 units SUBCUT [facility]; Protocol Last Admin: 11/06/18 21:28 Dose: 4 units Lactulose (Lactulose*) 30 ml PO TID PRN PRN Reason: CONSTIPATION Last Admin: 11/06/18 20:23 Dose: 30 ml Metoprolol Succinate (Toprol Xl Tab*) 100 mg PO QAM [facility] Last Admin: 11/06/18 09:23 Dose: 100 mg Nystatin (Nystatin Top Powder*) 1 applic TOPICAL TID PRN PRN Reason: RASH Oxybutynin Chloride (Ditropan Tab*) 5 mg PO BID [facility] Last Admin: 11/06/18 20:22 Dose: 5 mg Polyvinyl Alcohol (Polyvinyl Alcohol 1.4% Opth*) 1 drop BOTH EYES Q2H PRN PRN Reason: DRY EYE Potassium Chloride (Klor Con Er Tab*) 20 meq PO DAILY [facility] Last Admin: 11/06/18 09:23 Dose: 20 meq Senna (Senokot Tab*) 1 tab PO DAILY [facility] Last Admin: 11/06/18 09:23 Dose: 1 tab Vital Signs - 8 hr 11/07/18 11/07/18 07:54 07:58 Temperature 97.6 F Pulse Rate 74 Respiratory 16 Rate Blood Pressure 197/101 162/90 (mmHg) O2 Sat by Pulse 94 Oximetry Oxygen Devices in Use Now: None Appearance: Woman in NAD in bed, fatigued appearing Eyes: No Scleral Icterus, PERRLA Ears/Nose/Mouth/Throat: NL Teeth, Lips, Gums Neck: NL Appearance and Movements; NL JVP Respiratory: Symmetrical Chest Expansion and Respiratory Effort, Clear to Auscultation Cardiovascular: NL Sounds; No Murmurs; No JVD, RRR Abdominal: NL Sounds; No Tenderness; No Distention Lymphatic: No Cervical Adenopathy Extremities: No Edema Skin: - - Stage 2 Decub Neurological: - - Oriented to self and place Result Diagrams: 11/07/18 06:53 11/07/18 06:53 Additional Lab and Data: Laboratory Tests 10/30/18 10:51 Albumin 4.1 Microbiology and Other Data: Microbiology 10/31/18 11:45 Blood Venous Aerobic Blood Culture - Preliminary No Growth Day 1 10/31/18 11:45 Blood Venous Anaerobic Blood Culture - Preliminary No Growth Day 1 10/30/18 09:44 Blood Venous Aerobic Blood Culture - Preliminary No Growth Day 2 10/30/18 09:44 Blood Venous Anaerobic Blood Culture - Preliminary No Growth Day 2 10/30/18 09:55 Urine Urine Culture - Final Citrobacter Braakii 10/30/18 09:48 Nasal Influenza Types A,B Antigen - Final Specimen received for Influenza A/B Molecular testing Assess/Plan/Problems-Billing Assessment: 68 year old woman with severe MS, neurogenic bladder requiring self cath, recrrent nephrolithiasis and UTIs including recent leelee albicans, Enterobacter faecalis and E. coli, sacral decubitis stage 2, mild cognitive impairment, who presented with altered mental status and leukocytosis, found with Citrobacter Braakii UTI resistant to Zosyn. Pt with delirium in hospital improved with abx and stent exchange on 11/04. Now on PO doxycycline - Patient Problems (1) Altered mental state Current Visit: No Status: Acute Priority: High Code(s): R41.82 - ALTERED MENTAL STATUS, UNSPECIFIED SNOMED Code(s): 648818257 Comment: --Likely delirium from being hospitalized and infected. She has waxing and waining mental status --She has had neg head CT, Ammonia, prolactin --Will do chart review for standard delerium w/u TSH, B12, Folate (2) Toxic metabolic encephalopathy Current Visit: Yes Status: Acute Code(s): G92 - TOXIC ENCEPHALOPATHY SNOMED Code(s): 443284846 Comment: In setting of Citrobacter UTI. Has history of delirium in hospital and with likely poor baseline at home. Seems baseline MCI or demenita. - cont to treat infection as above - reorient, window bed - for agitation, first redirect, can try haldol IM 1mg nightly if needed (3) Citrobacter infection Current Visit: Yes Status: Acute Code(s): A49.8 - OTHER BACTERIAL INFECTIONS OF UNSPECIFIED SITE SNOMED Code(s): 376996121 Comment: s/p stent exchange with Uro on 11/04. Presenting symptom was AMS - now near baseline. - appreciate ID recs: switched levaquin (11/01, potential side effect of confusion ) -> cefepemine (11/02 - 11/05); now doxy PO (11/05 - ) until after stent removal as outpatient - ID started fluconazole (11/03 - 11/04), continue for known hx of leelee - Will remove wise cath today and straight cath q8 hours (4) Sacral decubitus ulcer, stage II Current Visit: Yes Status: Acute Priority: Medium Code(s): L89.152 - PRESSURE ULCER OF SACRAL REGION, STAGE 2 SNOMED Code(s): 111806490 Comment: --would care following - appreciate recs (5) HTN (hypertension) Current Visit: Yes Status: Chronic Priority: Medium Code(s): I10 - ESSENTIAL (PRIMARY) HYPERTENSION SNOMED Code(s): 90987899 Comment: - cont metoprolol succ 100mg daily - continue amlodipine 5mg nightly (6) DM2 (diabetes mellitus, type 2) Current Visit: Yes Status: Chronic Priority: Medium Comment: A1c 9.3% in Aug 2018. - holding home glipizide 5mg po BID. - cont glargine 10u with lispro SSI (7) DVT prophylaxis Current Visit: Yes Status: Acute Code(s): NZM7400 - SNOMED Code(s): 202205658 Comment: cont lovenox (8) Full code status Current Visit: No Status: Acute Code(s): Z78.9 - OTHER SPECIFIED HEALTH STATUS SNOMED Code(s): 960306285 Status and Disposition: Will need to f/u with uro within 1 week of discharge. now considering VNS or discussion with palliative. Stable for d/c 11/07
--- NOTE | 2018-11-07 12:02 | DS ---
CC: Arcenio Olivares MD * DISCHARGE SUMMARY: DATE OF ADMISSION: 10/30/18 DATE OF DISCHARGE: 11/07/18 PRIMARY CARE PROVIDER: Arcenio Olivares MD PRIMARY DIAGNOSIS: Urinary tract infection. SECONDARY DIAGNOSES: 1. Chronic relapsing-remitting multiple sclerosis, complicated by neurogenic bladder. 2. Recurrent nephrolithiasis. 3. Sacral decubitus ulcer, stage 2. 4. Mild cognitive impairment. MEDICATIONS ON DISCHARGE: 1. Acetaminophen 650 mg p.o. q.6 hours p.r.n. 2. Multivitamin 1 tab p.o. q.a.m. 3. Magnesium oxide 800 mg p.o. daily. 4. Hydrocodone/acetaminophen 5/325 one tab p.o. q.6 hours p.r.n. for severe pain. 5. Glipizide 5 mg p.o. b.i.d. 6. Vitamin D 1000 units p.o. q.p.m. 7. Potassium 20 mEq p.o. daily. 8. Oxybutynin 5 mg p.o. b.i.d. 9. Nystatin powder 1 application topically t.i.d. 10. Metoprolol succinate 100 mg p.o. q.a.m. 11. Carbamazepine 200 mg p.o. b.i.d. 12. Baclofen 20 mg p.o. q.i.d. 13. Atorvastatin 40 mg p.o. q.h.s. 14. Artificial Tears 1 drop both eyes q.2 hours p.r.n. 15. Anastrozole 1 mg p.o. q. day at noon. 16. Doxycycline 100 mg p.o. b.i.d. times an additional 14 days after discharge or until stent exchange whichever comes first. Medication changes on this discharge include the addition of doxycycline for additional 14 days until the patient follows up with Urology for ureteral stent exchange. HOSPITAL COURSE: Hospital course and presentation by problem is as follows: A 68-year-old female with the above past medical history, who presented to the emergency room on 10/30/18 with altered mental status in the setting of recurrent hospital admissions over the last 3 months. The patient was hospitalized in August and September 2018 with similar presentations and has been working with Urology as she was found to have left-sided nephrolithiasis as well as a fungal infection bladder and thought to be on the stent at that time and was treated conservatively initially with antibiotics and antifungals, but re-presented to the emergency room as she was confused and lethargic in the setting of recurrent UTI despite outpatient oral antibiotics and antifungal treatment. She was admitted to the hospital with a diagnosis of sepsis likely due to urinary tract infection and Urology was consulted for possible stent exchange, replacement of nephrostomy tube. Her hospital course by problem is as follows: 1. Urinary tract infection. Ultimately, urinary cultures grew out Citrobacter on this admission. In the past, she has grown enterococcus, E. coli, and leelee. ID was consulted and recommended being on IV cefepime initially, although that was changed to Levaquin and fluconazole and then ultimately changed to doxycycline 4 days before discharge for p.o. as the patient lost IV access and plan was to cover the known infection which was as above Citrobacter braakii, which was sensitive to doxycycline oral. Plan was to discharge on doxycycline until possible stent exchange done as outpatient through Urology. 2. Nephrolithiasis without hydronephrosis. As above, the patient has had a left ureteral stent and Urology was consulted and the stent was exchanged in this hospitalization in the setting of known nephrolithiasis proximal to the left ureteral stent. They did feel that they were able to break up some of the kidney stone and do successful stent exchange. There was no evidence of hydronephrosis on renal ultrasound. Urology plans to follow up with this patient in 7 to 10 days for outpatient stent exchange, in which time she will be remained on antibiotics. 3. Multiple sclerosis with neurogenic bladder. Unfortunately, this patient has severe MS and has had recurrent UTIs secondary to a neurogenic bladder. She self- caths at home and was able to demonstrate the skill 2 days prior to discharge. Her feels that she is close to her baseline. He cares for her unassisted in the home alone. Multiple family conversations were held to offer increased services to this family or offer short-term rehab as a bridge to home given her frequent hospitalizations in early 2019, though her feels that he has adequate services and declines further meetings with Case Management, Social Work, or the provider team. 4. Mild cognitive impairment in the setting of MS and history of seizure disorder. The patient has mild cognitive impairment at baseline and did exhibit some signs of delirium in this hospitalization with waxing and waning mental status. Her delirium workup was unremarkable save for the early urinary tract infection, although repeated hospitalizations likely led to hospital-induced delirium. In the last 48 hours prior to discharge, the patient had reoriented herself partially, although did exhibit some ing behavior again. Family conversations were held with her and her to advise that this may be a possibly even new baseline, although the patient felt that he could care for her in the home without additional help. 5. Breast cancer. She has a distant history and remains on anastrozole, which was continued here. Overall prior to discharge, the patient had successful stent exchange and treatment of UTI and will follow up with Urology. We advised to the that this is likely going to be a recurrent problem and encourage the patient to self-cath in a clean and sterile manner. They understand the instructions and the risks and are amenable to discharge to home on 11/07/18. DATA: Imaging obtained during this hospitalization includes an abdominal x-ray done on 11/01/18, which showed moderate stool in the descending colon and a 4- mm stone at the lower pole of the left kidney. Retrograde pyelogram which was done 11/04/18 in the setting of stent exchange, which showed successful exchange of left ureteral stent and successful manual tripsy of left nephrolithiasis. Repeat abdominal x-ray on 11/05/18, which showed a new left ureteral stent in place and small 2-mm stone fragments adjacent to the distal segment of the ureteral stent. A brain CT was done on 11/05/18 in the setting of acute delirium, which showed no acute intracranial pathology and other chronic findings significant for nonspecific parenchymal volume loss. Micro collected in this hospitalization. Blood cultures were no growth to date after 5 days. Urine culture as above growing Citrobacter braakii. Influenza was negative. Labs are significant for, on presentation, a leukocytosis that trended down to normal labs on day of discharge with white blood cell count 4.8 , hemoglobin of 14, hematocrit of 46, and platelets of 178. BMP was totally unremarkable for the stay of her hospitalization. CONSULTANTS INVOLVED IN HER CARE DURING THIS HOSPITALIZATION: Included Infectious Disease and Urology. THINGS TO FOLLOW UP ON AFTER DISCHARGE: 1. Left ureteral stent. The patient will need a followup appointment with Urology in 7 to 10 days. This referral was made on discharge and will call and make appointment on Wednesday for in-office exchange. She is known well to this office. The patient will continue doxycycline 100 mg p.o. b.i.d. until stent exchange and potentially afterwards depending on discretion of Urology. 2. Recurrent urinary tract infections. The patient has neurogenic bladder and this has been unfortunate side effect of her neurological disease. Family is offered infectious disease consult, which they will consider following up with in the future. They are often seen by ID while in hospital, though have not utilize outpatient services to discuss potential for suppression of UTIs with antibiotics. A referral was made to Dr. Brewer's office to follow up with the patient as outpatient. 3. Mild cognitive impairment and decline. Numerous discussions were held with in the setting of her declining cognitive status with mild cognitive impairment and repeated infections that led to substance-induced delirium. We discussed the potential for clearing once returned to a normative home schedule , although we also discussed the potential that this could be the patient's new baseline. He follows with Dr. Nur, who is her neurologist and plans on making a followup appointment in 1 month. They have their annual scheduled in early spring and note that they can move it up if there continues to be behavioral disturbances in the setting of her cognitive decline. TIME SPENT: Forty minutes were spent on the planning of this discharge with over half of that spent directly at the bedside of the patient. DISPOSITION ON DAY OF DISCHARGE: The patient is stable for discharge to home. Plan of care was discussed with the patient and her , who are in agreeance to discharge to home and warning signs to return to the hospital including fevers, worsening mental status consistent with prior infection and precautions to return including new abdominal pain were discussed. They have no further questions to ask. If there are any questions about the care provided to this patient, please do not hesitate to reach out. [id number]/CPS #: [id number] TORI
[2018-11-07 12:54] VITALS: BP 138/77
[2018-11-07] MEDS: CMCS - Anastrozole (NF) 1 MG TAB PO SCH (13:23)
== END 2018-11-07 15:00 | disposition home or self-care (01) | DRG 853 ==
LOC: ED 08:55 → MED 12:55
PROVIDERS: ADMIT Internal Medicine; ATTEND Internal Medicine
PROC: 0TF48ZZ Fragmentation in Left Kidney Pelvis, Via Natural or Artificial Opening Endoscopic (ICD-10-PCS; 2018-11-04)
PROC: 0T9B70Z Drainage of Bladder with Drainage Device, Via Natural or Artificial Opening (ICD-10-PCS; 2018-11-04)
PROC: 0T778DZ Dilation of Left Ureter with Intraluminal Device, Via Natural or Artificial Opening Endoscopic (ICD-10-PCS; principal; 2018-11-04 08:45)
DX: A41.9 Sepsis, unspecified organism (principal); G92 Toxic encephalopathy; N39.0 Urinary tract infection, site not specified; L89.152 Pressure ulcer of sacral region, stage 2; G35 Multiple sclerosis; N31.9 Neuromuscular dysfunction of bladder, unspecified; I10 Essential (primary) hypertension; E11.9 Type 2 diabetes mellitus without complications; G40.909 Epilepsy, unspecified, not intractable, without status epilepticus; A49.8 Other bacterial infections of unspecified site; K59.00 Constipation, unspecified; N20.0 Calculus of kidney; Z96.0 Presence of urogenital implants; G31.84 Mild cognitive impairment of uncertain or unknown etiology; C50.919 Malignant neoplasm of unspecified site of unspecified female breast; Z79.1 Long term (current) use of non-steroidal anti-inflammatories (NSAID); Z79.899 Other long term (current) drug therapy; Z88.2 Allergy status to sulfonamides; Z88.8 Allergy status to other drugs, medicaments and biological substances; Z80.6 Family history of leukemia
CPT/HCPCS: 36415; 70450; 71045; 74018; 74420; 76775; 80048; 80053; 80156; 81003; 81015; 82140; 82550; 83605; 83880; 84146; 84484; 85025; 85652; 86140; 87040; 87077; 87086; 87186; 93005; 99284; A9270-GY; C1876; J0360; J0692; J0696; J1630; J1644; J1650; J1885; J2270; J2405; J2543; J2704; J3010; J3490

== ENCOUNTER 2019-03-21 10:28 | Inpatient (IN) | payer MEDICARE, MEDICAID ==
--- OUTSIDE RECORDS SUMMARY | 2019-03-21 10:59 | XMS REPORT | Continuity of Care Document ---
:1950 External Reference #:[id number] Author Name Diane Gamez Care Team Providers Name Role Phone Arcenio Olivares MD Primary Care Physician Unavailable Payers Date Identification Numbers Payment Provider Subscriber Policy Number: [id number] [facility] (Medicare) Lucretia Ac PayID: [id number] [facility] [address] [place] [address] Policy Number: [id number] Medicaid Lucretia Ac Group Name: 1 1 [address] PayID: [id number] [place] [address] Problems Active Problems Provider Date Multiple sclerosis Cristian Nur M.D. Onset: 03/19/2015 Family History Date Family Member(s) Observation Comments General Diabetes General Heart Disease General Hypertension General Stroke General Cancer General Rheumatoid Arthritis Social History Type Date Description Comments Sex Unknown Lives With Spouse Occupation Disabled ETOH Use Never used alcohol Tobacco Use Start: Unknown Patient has never smoked Smoking Status Reviewed: 03/16/19 Patient has never smoked Exercise Type/Frequency Does not exercise Allergies, Adverse Reactions, Alerts Active Allergies Reaction Severity Comments Date Sulfa Antibiotics 03/21/2013 Lisinopril lips swell 03/19/2015 Medications Active Medications SIG Qnty Indications Ordering Date Provider 6 " Catheter 14 use as directed 180unмарина Powers 07/01/2015 Erasmo Nur M.D. Fluconazole 2by mouth every Unknown 200mg day Tablets Vitamin D3 High 1 by mouth every Unknown Potency day 1000Unit Capsules Lipitor 1 by mouth at Unknown 40mg Tablets bedtime Glipizide 1 by mouth twice Unknown 5mg Tablets a day Arimidex 1 by mouth every Unknown 1mg Tablets day Daily Vitamin 1 by mouth every Unknown Tablets day Hydrocodone-Acetamino 1 by mouth every Unknown phen 4-6 hours prn. 5-325mg Tablets Advil as needed Unknown 200mg Tablets Losartan Potassium 1 by mouth every Unknown day 100mg Tablets Glyburide 1 po qd Unknown 5mg Tablets Oxybutynin Chloride 1 po bid Unknown 5mg Tablets Metoprolol Succinate 1 po qd 90tabs Unknown ER 100mg Tablets ER 24HR Carbamazepine 1 tab by mouth 90tabs Unknown 200mg bid Tablets Baclofen 1 by mouth four 165tabs Cristian Powers 20mg Tablets times a day and Gunnar Nur 1 1/2 at bedtime History Medications Jannet Bailey, 12/22/2017 - M.DMckenzie 03/27/2018 Gabapentin 1 po qhs for 3 90caps Cristian Nur, 03/19/2015 - 100mg Capsules days then 2 po M.D. 03/23/2016 qhs for 1 wk then 3 po qhs Cozaar 1 by mouth 90tabs Cristian Nur, 03/19/2015 - 50mg Tablets every day M.D. Unknown Paroxetine HCL ER 1 by mouth 30tabs Cristian Nur, 03/20/2014 - 12.5mg every day M.D. 03/19/2015 Tablets ER 24HR Nitrofurantoin 1 cap po daily 14caps Unknown - Monohydrate 03/22/2017 100mg Capsules Lisinopril 1 po qd 30tabs Unknown - 10mg Tablets 03/18/2015 Amitriptyline HCL 1tab po qhs 15tabs Unknown - 25mg 03/23/2016 Tablets Hydrocodone/Acetaminophe one po prn 60tabs Unknown - n 03/23/2016 5-500mg Tablets Naproxen 1 tablet by Unknown - 500mg Tablets mouth twice a Unknown day prn Tegretol Unknown - 03/27/2018 Triamcinolone Cream Unknown - 03/27/2018 Vital Signs Date Vital Result Comment 03/16/2019 1:27pm Weight 120.38 lb Heart Rate 70 /min Body Temperature 98.2 F O2 % BldC Oximetry 96 % 03/29/2018 9:15am Height 61 inches 5'1" Weight 145.00 lb Heart Rate 70 /min BP Systolic 122 mmHg BP Diastolic 84 mmHg BMI (Body Mass Index) 27.4 kg/m2 01/19/2018 2:51pm Height 61 inches 5'1" Heart Rate 72 /min BP Systolic 110 mmHg BP Diastolic 68 mmHg Respiratory Rate 14 /min Body Temperature 98.2 F Pain Level 0 12/22/2017 3:41pm Height 61 inches 5'1" Heart Rate 71 /min BP Systolic 126 mmHg BP Diastolic 72 mmHg Respiratory Rate 18 /min Body Temperature 98.1 F Pain Level 8 03/23/2017 9:17am Height 61 inches 5'1" Weight 145.00 lb Heart Rate 68 /min BP Systolic Sitting 130 mmHg BP Diastolic Sitting 80 mmHg Respiratory Rate 15 /min BMI (Body Mass Index) 27.4 kg/m2 10/23/2016 11:24am Heart Rate 64 /min BP Systolic 134 mmHg BP Diastolic 80 mmHg Respiratory Rate 16 /min Body Temperature 96.8 F 10/14/2016 9:57am Heart Rate 62 /min Respiratory Rate 16 /min Body Temperature 96.2 F 10/05/2016 10:53am Height 61 inches 5'1" Weight 134.00 lb Heart Rate 74 /min BP Systolic 106 mmHg BP Diastolic 70 mmHg Respiratory Rate 18 /min Body Temperature 96.9 F BMI (Body Mass Index) 25.3 kg/m2 09/29/2016 3:17pm Height 61 inches 5'1" Weight 135.00 lb Heart Rate 78 /min BP Systolic 122 mmHg BP Diastolic 80 mmHg Respiratory Rate 18 /min Body Temperature 97.6 F BMI (Body Mass Index) 25.5 kg/m2 03/24/2016 3:54pm Heart Rate 72 /min BP Systolic Sitting 112 mmHg BP Diastolic Sitting 62 mmHg Respiratory Rate 14 /min 03/19/2015 3:55pm Height 61.5 inches 5'1.50" Heart Rate 68 /min BP Systolic Sitting 140 mmHg BP Diastolic Sitting 88 mmHg Respiratory Rate 16 /min 03/20/2014 3:53pm Height 61.5 inches 5'1.50" Heart Rate 76 /min BP Systolic Sitting 138 mmHg BP Diastolic Sitting 76 mmHg Respiratory Rate 16 /min 03/21/2013 3:14pm Heart Rate 76 /min BP Systolic Sitting 120 mmHg BP Diastolic Sitting 76 mmHg Respiratory Rate 20 /min Results Test Date Facility Test Result H/L Range Note Comp Metabolic Panel 03/31/2017 [facility] Sodium 136 mmol/L N 133-[address] [place] [address] [phone] Potassium 4.3 mmol/L N 3.5-5.0 Chloride 103 mmol/L N 101-111 Co2 Carbon Dioxide 24 mmol/L N 22-32 Anion Gap 9 mmol/L N 2-11 Glucose 166 mg/dL High 70-100 Blood Urea Nitrogen 25 mg/dL High 6-24 Creatinine 0.94 mg/dL N 0.51-0.95 BUN/Creatinine Ratio 26.6 High 8-20 Calcium 9.1 mg/dL N 8.6-10.3 Total Protein 6.9 g/dL N 6.4-8.9 Albumin 4.0 g/dL N 3.2-5.2 Globulin 2.9 g/dL N 2-4 Albumin/Globulin Ratio 1.4 N 1-3 Total Bilirubin 0.30 mg/dL N 0.2-1.0 Alkaline Phosphatase 71 U/L N 34-104 Alt 20 U/L N 7-52 Ast 17 U/L N 13-39 Egfr Non- 59.6 N >60 Egfr 76.6 N >60 1 CBC Auto Diff 03/31/2017 [facility] White Blood 9.8 10^3/uL N 3.5-10.[address] [place] [address] [phone] Red Blood Count 4.17 10^6/uL N 4.0-5.4 Hemoglobin 13.2 g/dL N 12.0-16.0 Hematocrit 39 % N 35-47 Mean Corpuscular Volume 93 fL N 80-97 Mean Corpuscular Hemoglobin 32 pg High 27-31 Mean Corpuscular HGB Conc 34 g/dL N 31-36 Red Cell Distribution Width 14 % N 10.5-15 Platelet Count 189 10^3/uL N 150-450 Mean Platelet Volume 9 um3 N 7.4-10.4 Abs Neutrophils 6.6 10^3/uL N 1.5-7.7 Abs Lymphocytes 1.9 10^3/uL N 1.0-4.8 Abs Monocytes 1.0 10^3/uL High 0-0.8 Abs Eosinophils 0.3 10^3/uL N 0-0.6 Abs Basophils 0 10^3/uL N 0-0.2 Abs Nucleated RBC 0 10^3/uL N Granulocyte % 67.1 % N 38-83 Lymphocyte % 19.6 % Low 25-47 Monocyte % 10.3 % High 1-9 Eosinophil % 2.6 % N 0-6 Basophil % 0.4 % N 0-2 Nucleated Red Blood Cells % 0 N Laboratory test 03/31/2017 [facility] TSH (Thyroid 2.82 N 0.34 -5.[address] Stim Horm) mcIU/mL [place], [place] [id number] [phone] Laboratory test 11/12/2016 [facility] Vitamin D 35.4 ng/mL N 30-[address] Total 25(Oh) [place] [address] [phone] Laboratory test 10/15/2016 [facility] Point of Care 145 mg/dL High 74-106 [address] [place] [address] [phone] Laboratory test 10/15/2016 [facility] Surgical SEE RESULT [address] [place] [address] [phone] Laboratory test 10/15/2016 [facility] Point of Care 149 mg/dL High 74-106 [address] Glucose [place], [place] [address] [phone] Laboratory test 10/15/2016 [facility] Point of Care 142 mg/dL High 74-106 [address] Glucose [place], [place] [address] [phone] Laboratory test 07/13/2016 [facility] Point of Care 142 mg/dL High 74-106 [address] Glucose [place], [place] [id number] [phone] Stone Analysis 07/13/2016 [facility] Kidney Stone Bladder N [address] [place] [address] [phone] Kidney Stone 1st Constituent See Comment N 7 Kidney Stone 2nd Constituent See Comment N 8 Laboratory test 06/06/2016 [facility] TSH (Thyroid 2.69 mcIU/mL N 0.34-5.[address] Stim Horm) [place] [address] [phone] Lactic Acid 2.8 mmol/L High 0.5-2.0 9 Blood Culture SEE RESULT BELOW 10 CKMB 06/06/2016 [facility] CKMB ng/mL 1.1 ng/mL N 0.6-6.3 [address] [place] [address] [phone] Laboratory test 06/06/2016 [facility] Lipase 5 U/L Low 11.0- 82.0 finding [address] [place] [address] [phone] Creatine Kinase(CK) 21 U/L N 10-223 C Reactive Protein 185.60 mg/L High < 5.00 11 Troponin-I (TnI) 0.03 ng/mL High <0.03 12 Comp Metabolic Panel 06/06/2016 [facility] Sodium 134 mmol/L N 133-145 [address] [place] [address] [phone] Potassium 4.0 mmol/L N 3.5-5.0 Chloride 99 mmol/L Low 101-111 Co2 Carbon Dioxide 25 mmol/L N 22-32 Anion Gap 10 mmol/L N 2-11 Glucose 211 mg/dL High 70-100 Blood Urea Nitrogen 25 mg/dL High 6-24 Creatinine 1.05 mg/dL High 0.51-0.95 BUN/Creatinine Ratio 23.8 High 8-20 Calcium 9.8 mg/dL N 8.6-10.3 Total Protein 7.8 g/dL N 6.4-8.9 Albumin 3.9 g/dL N 3.2-5.2 Globulin 3.9 g/dL N 2-4 Albumin/Globulin Ratio 1.0 N 1-3 Total Bilirubin 0.60 mg/dL N 0.2-1.0 Alkaline Phosphatase 60 U/L N 34-104 Alt 28 U/L N 7-52 Ast 24 U/L N 13-39 Egfr Non- 52.6 N >60 Egfr 67.6 N >60 13 Laboratory test 06/06/2016 [facility] Partial 29.0 seconds N 26.0-36.[address] [place] [address] PTT [phone] B-Type Natriuretic Peptide BNP 173 pg/mL High 14 Inr/Protime 06/06/2016 [facility] Inr 0.93 N 0.89-1.[address] [place], [place] [id number] [phone] CBC Auto Diff 06/06/2016 [facility] White Blood 18.0 High 3.5- 10.[address] Count 10^3/[place] [address] [phone] Red Blood Count 5.10 10^6/uL N 4.0-5.4 Hemoglobin 15.0 g/dL N 12.0-16.0 Hematocrit 45 % N 35-47 Mean Corpuscular Volume 89 fL N 80-97 Mean Corpuscular Hemoglobin 30 pg N 27-31 Mean Corpuscular HGB Conc 33 g/dL N 31-36 Red Cell Distribution Width 15 % N 10.5-15 Platelet Count 170 10^3/uL N 150-450 Mean Platelet Volume 9 um3 N 7.4-10.4 Abs Neutrophils 16.7 10^3/uL High 1.5-7.7 Abs Lymphocytes 0.5 10^3/uL Low 1.0-4.8 Abs Monocytes 0.8 10^3/uL N 0-0.8 Abs Eosinophils 0 10^3/uL N 0-0.6 Abs Basophils 0 10^3/uL N 0-0.2 Abs Nucleated RBC 0 10^3/uL N Granulocyte % 92.6 % High 38-83 Lymphocyte % 2.6 % Low 25-47 Monocyte % 4.6 % N 1-9 Eosinophil % 0.1 % N 0-6 Basophil % 0.1 % N 0-2 Nucleated Red Blood Cells % 0 N Laboratory test 06/06/2016 [facility] Point of 208 mg/dL High 74-106 [address] Care Glucose [place], [place] [address] [phone] Urine Culture And 06/06/2016 [facility] Urine SEE RESULT [address] [place] [address] [phone] Urinalysis Profile 06/06/2016 [facility] Urine Color Yellow N [address] [place] [address] [phone] Urine Appearance Cloudy N Urine Specific [place] 1.014 N 1.010-1.030 Urine pH 5.0 N 5-9 Urine Urobilinogen Negative N Negative Urine Ketones Trace Abnormal Negative Urine Protein 1+(30 mg/dL) Abnormal Negative Urine Leukocytes 3+ Abnormal Negative Urine Blood 3+ Abnormal Negative Urine Nitrite Negative N Negative Urine Bilirubin Negative N Negative Urine Glucose 1+(50 mg/dL) Abnormal Negative Urine White Blood Cell 3+(>20/hpf) Abnormal Absent Urine Red Blood Cell 3+(>10/hpf) Abnormal Absent Urine Bacteria Absent N Absent Urine Squamous Epithelial Cell Present Abnormal Absent Laboratory 06/06/2016 [facility] Carbamazepine 3.7 g/mL Low 4.0-12.0 test finding 101 [facility] (Tegretol) [place], [place] [address] [phone] Troponin I 0.04 ng/mL High <0.03 17 Procalcitonin 2.4 ng/mL High <0.6 18 Laboratory test 06/06/2016 [facility] Point of 203 mg/dL High 74-106 19 finding [address] [place] [address] Glucose [phone] Laboratory test 06/06/2016 [facility] Lactic Acid 3.6 mmol/L High 0.5-2.0 20 finding 101 [place] [address] [phone] Laboratory test 06/06/2016 [facility] Point of 135 mg/dL High 74-106 21 finding [address] [place] [address] Glucose [phone] Laboratory test 01/20/2016 [facility] Point of 150 mg/dL High 74-106 22 finding [address] [place] [address] Glucose [phone] Urine Culture And 01/09/2016 [facility] Urine SEE RESULT [address] [place] [address] [phone] Laboratory test 01/09/2016 [facility] Blood SEE RESULT [address] Culture BELOW [place], [place] [address] [phone] Urinalysis Profile 01/09/2016 [facility] Urine Color Yellow N [address] [place] [address] [phone] Urine Appearance Clear N Urine Specific [place] 1.006 Low 1.010-1.030 Urine pH 7.0 N 5-9 Urine Urobilinogen Negative N Negative Urine Ketones 1+ Abnormal Negative Urine Protein 2+(100 mg/dL) Abnormal Negative Urine Leukocytes 3+ Abnormal Negative Urine Blood Negative N Negative Urine Nitrite Negative N Negative Urine Bilirubin Negative N Negative Urine Glucose 3+(>=500 mg/dL) Abnormal Negative Urine White Blood Cell 2+(11-20/hpf) Abnormal Absent Urine Red Blood Cell Trace(0-2/hpf) N Absent Urine Bacteria Absent N Absent Laboratory test 01/09/2016 [facility] Lactic Acid 1.9 mmol/L N 0.5-2.0 [address] [place] [address] [phone] Comp Metabolic 01/09/2016 [facility] Sodium 133 mmol/L N 133- [address] [place] [address] [phone] Potassium 3.6 mmol/L N 3.5-5.0 Chloride 95 mmol/L Low 101-111 Co2 Carbon Dioxide 26 mmol/L N 22-32 Anion Gap 12 mmol/L High 2-11 Glucose 271 mg/dL High 70-100 Blood Urea Nitrogen 13 mg/dL N 6-24 Creatinine 0.84 mg/dL N 0.51-0.95 BUN/Creatinine Ratio 15.5 N 8-20 Calcium 9.9 mg/dL N 8.6-10.3 Total Protein 8.3 g/dL N 6.4-8.9 Albumin 4.0 g/dL N 3.2-5.2 Globulin 4.3 g/dL High 2-4 Albumin/Globulin Ratio 0.9 Low 1-3 Total Bilirubin 0.50 mg/dL N 0.2-1.0 Alkaline Phosphatase 70 U/L N 34-104 Alt 18 U/L N 7-52 Ast 18 U/L N 13-39 Egfr Non- 68.3 N >60 Egfr 87.8 N >60 26 Laboratory test 01/09/2016 [facility] Partial 32.2 seconds N 26.0-36.[address] [place] [address] PTT [phone] Troponin-I (TnI) 0.05 ng/mL High <0.03 27 Inr/Protime 01/09/2016 [facility] Inr 1.09 N 0.89-1.[address] [place] [address] [phone] CBC Auto Diff 01/09/2016 [facility] White Blood 24.2 High 3.5- 10.[address] Count 10^3/[place] [address] [phone] Red Blood Count 4.12 10^6/uL N 4.0-5.4 Hemoglobin 11.7 g/dL Low 12.0-16.0 Hematocrit 36 % N 35-47 Mean Corpuscular Volume 87 fL N 80-97 Mean Corpuscular Hemoglobin 28 pg N 27-31 Mean Corpuscular HGB Conc 33 g/dL N 31-36 Red Cell Distribution Width 18 % High 10.5-15 Platelet Count 327 10^3/uL N 150-450 Mean Platelet Volume 8 um3 N 7.4-10.4 Abs Neutrophils 21.4 10^3/uL High 1.5-7.7 Abs Lymphocytes 0.7 10^3/uL Low 1.0-4.8 Abs Monocytes 1.8 10^3/uL High 0-0.8 Abs Eosinophils 0 10^3/uL N 0-0.6 Abs Basophils 0.2 10^3/uL N 0-0.2 Abs Nucleated RBC 0.01 10^3/uL N Granulocyte % 88.3 % High 38-83 Lymphocyte % 3.1 % Low 25-47 Monocyte % 7.5 % N 1-9 Eosinophil % 0.1 % N 0-6 Basophil % 1.0 % N 0-2 Nucleated Red Blood Cells % 0 N Urine Culture And 12/09/2015 [facility] Urine Culture SEE RESULT [address] [place] [address] [phone] Laboratory test 12/09/2015 [facility] Magnesium 1.9 mg/dL N 1.9-[address] .7 [place] [address] [phone] Lipase 9 U/L Low 11.0-82.0 Creatine Kinase 23 U/L N 10-223 C Reactive Protein 254.73 mg/L High < 5.00 29 TSH (Thyroid Stim Horm) 1.79 ?IU/mL N 0.34-5.60 Blood Culture SEE RESULT BELOW 30 Comp Metabolic Panel 12/09/2015 [facility] Sodium 138 mmol/L N 133-145 [address] [place] [address] [phone] Potassium 3.7 mmol/L N 3.5-5.0 Chloride 97 mmol/L Low 101-111 Co2 Carbon Dioxide 27 mmol/L N 22-32 Anion Gap 14 mmol/L High 2-11 Glucose 470 mg/dL High 70-100 Blood Urea Nitrogen 20 mg/dL N 6-24 Creatinine 0.92 mg/dL N 0.51-0.95 BUN/Creatinine Ratio 21.7 High 8-20 Calcium 10.3 mg/dL N 8.6-10.3 Total Protein 8.7 g/dL N 6.4-8.9 Albumin 3.8 g/dL N 3.2-5.2 Globulin 4.9 g/dL High 2-4 Albumin/Globulin Ratio 0.8 Low 1-3 Total Bilirubin 0.40 mg/dL N 0.2-1.0 Alkaline Phosphatase 83 U/L N 34-104 Alt 16 U/L N 7-52 Ast 17 U/L N 13-39 Egfr Non- 61.5 N >60 Egfr 79.0 N >60 31 CKMB 12/09/2015 [facility] CKMB ng/mL 1.1 ng/mL N 0.6-6.[address] [place] [address] [phone] Laboratory test 12/09/2015 [facility] B Type 98 pg/mL N [address] [place] [address] Peptide [phone] Ammonia 30 ?mol/L N 16-53 Troponin I 0.05 ng/mL High <0.03 33 Urinalysis Profile 12/09/2015 [facility] Urine Color Yellow N [address] [place] [address] [phone] Urine Appearance Cloudy N Urine Specific [place] 1.021 N 1.010-1.030 Urine pH 6.0 N 5-9 Urine Urobilinogen Negative N Negative Urine Ketones 1+ Abnormal Negative Urine Protein 1+(30 mg/dL) Abnormal Negative Urine Leukocytes 2+ Abnormal Negative Urine Blood 2+ Abnormal Negative Urine Nitrite Negative N Negative Urine Bilirubin Negative N Negative Urine Glucose 3+(>=500 mg/dL) Abnormal Negative Urine White Blood Cell 3+(>20/hpf) Abnormal Absent Urine Red Blood Cell 1+(3-5/hpf) Abnormal Absent Urine Bacteria 1+ Abnormal Absent Urine Squamous Epithelial Cell Present Abnormal Absent Laboratory test 12/09/2015 [facility] Partial 30.9 seconds N 26.0-36.[address] [place] [address] PTT [phone] Lactic Acid 1.6 mmol/L N 0.5-2.0 34 Inr/Protime 12/09/2015 [facility] Inr 1.17 High 0.89-1.[address] [place] [address] [phone] CBC Auto Diff 12/09/2015 [facility] White Blood 20.7 High 3.5- 10.[address] Count 10^3/[place] [address] [phone] Red Blood Count 4.06 10^6/uL N 4.0-5.4 Hemoglobin 11.4 g/dL Low 12.0-16.0 Hematocrit 35 % N 35-47 Mean Corpuscular Volume 86 fL N 80-97 Mean Corpuscular Hemoglobin 28 pg N 27-31 Mean Corpuscular HGB Conc 32 g/dL N 31-36 Red Cell Distribution Width 16 % High 10.5-15 Platelet Count 294 10^3/uL N 150-450 Mean Platelet Volume 9 um3 N 7.4-10.4 Abs Neutrophils 17.8 10^3/uL High 1.5-7.7 Abs Lymphocytes 1.2 10^3/uL N 1.0-4.8 Abs Monocytes 1.7 10^3/uL High 0-0.8 Abs Eosinophils 0 10^3/uL N 0-0.6 Abs Basophils 0 10^3/uL N 0-0.2 Abs Nucleated RBC 0 10^3/uL N Granulocyte % 85.9 % High 38-83 Lymphocyte % 5.7 % Low 25-47 Monocyte % 8.2 % N 1-9 Eosinophil % 0 % N 0-6 Basophil % 0.2 % N 0-2 Nucleated Red Blood Cells % 0 N Laboratory test 12/09/2015 [facility] Rapid SEE RESULT [address] Influenza [place] & [place] [address] B Antigen [phone] Rapid Influenza 12/09/2015 [facility] Influenza A NEGATIVE N Negative 36 A & B Molecular [address] [place] [address] [phone] Influenza B Molecular NEGATIVE N Negative 1 Because ethnic data is not always readily available, this report includes an eGFR for both -Americans and non- Americans. The National Kidney Disease Education Program (NKDEP) does not endorse the use of the MDRD equation for patients that are not between the ages of 18 and 70, are , have extremes of body size, muscle mass, or nutritional status, or are non- or non-. According to the National Kidney Foundation, irrespective of diagnosis, the stage of the disease is based on the level of kidney function: Stage Description GFR(mL/min/1.73 m(2)) 1 Kidney damage with normal or decreased GFR 90 2 Kidney damage with mild decrease in GFR 60-89 3 Moderate decrease in GFR 30-59 4 Severe decrease in GFR 15-29 5 Kidney failure <15 (or dialysis) 2 [employer]: [id number] LINDA RAMACHANDRAN 3 SEE RESULT BELOW Name: LUCRETIA AC : [address]: Rahul Ortiz MD Acct: [id number] Unit: [id number] AGE: 66 Location: OR Re10/15/16 SEX: F Status: VERONICA AREVALO SPEC: [id number] LOUISE: 10/15/16-1328 [facility] DR: Rahul Ortiz MD REQ: [id number] RECD: 10/15/16 STATUS: SOUT _ ORDERED: KERATIN STAIN/2, LEVEL V/3, KSS-ADD/2 FINAL DIAGNOSIS 1. 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 Overall [place] grade: 2. Tubule formation: 2. Nuclear grade: 3. Mitotic count: 1. Margins: Negative by at least 10 mm. Lymphovascular invasion: Not identified. Skin: Not applicable. Chest-wall / pectoralis involvement: Not applicable. Ductal carcinoma in situ (DCIS): Not identified. ER, MA, Her2/raymond by immunohistochemistry with appropriate controls: ER: Per S17-762, positive, 3+, greater than 90%. MA: Per S17-762 positive, 2-3 plus, 50%. Her2/raymond: Per S17-762, negative (1+). Microcalcifications: Not identified. Other findings: None. pTNM histopathologic stage: pT1b N 0 M N/A. 2. [place] lymph node #1, excision: --Two lymph nodes with no tumor seen (0/2). See comment. 3. [place] lymph node #2, excision: -- One lymph node with no tumor seen (0/1). See comment. Comment: Per sentinel lymph node protocol multiple level sections as well as immunochemical stains for pankeratin with CONTINUED ON NEXT PAGE * ML=Testing performed at Main Lab DEPARTMENT OF PATHOLOGY, [address] [place] [address] Bertram Avalos M.D. Director [facility] # [id number] RUN DATE: 10/19/16 [facility] LAB LIVE PAGE 2 Patient: LUCRETIA AC [id number] (Continued) SPECIMEN COMMENTS (Continued) appropriate controls were performed on parts [address] Hernandez has reviewed this case and concurs. PRE-OPERATIVE DIAGNOSIS Right breast cancer; 1) suture morrison: short-superior, medium-medial, long- lateral GROSS DESCRIPTION 1. The specimen is received fresh labeled, Right Breast Excision, and consists of an 8.0 x 6.1 by up to 2.5 cm yellow-pink ovoid portion of fibrofatty soft tissue with three attached sutures, which are designated as follows: long-lateral, short-superior and medium-medial. There is a needle localization wire entering the specimen from the mid anterior to medial aspect and extending towards the central specimen. There is a 1.0 x 0.9 x 0.5 cm wilkerson-pink granular focally indurated lesion associated with the localization wire 1.0 cm from the inferior anterior margin. This lesion contains a 0.3 x 0.1 cm silver metallic clip. The remaining cut surface consists predominantly of yellow focally hemorrhagic lobulated adipose tissue with scant interspersed wilkerson-white fibrous tissue. The specimen is inked as follows: superior anterior-blue, inferior anterior-green and deep-black, serially sectioned from lateral to medial and assisted sales representative sections are submitted in cassettes A through J to include lesion in cassettes F through H including section containing clip in cassette G. 2. The specimen is received in formalin labeled, [place] Node #1, Count 1730, and consists of a 2.2 x 1.7 x 1.0 cm aggregate of yellow lobulated adipose tissue. Sectioning reveals two probable lymph nodes. The specimen is serially sectioned and entirely submitted in three cassettes. 3. The specimen is received in formalin labeled, [place] Node #2, Count 330, and consists of a 1.5 x 1.2 by up to 0.8 cm wilkerson-yellow lymph node with moderate adherent yellow fat. The cut surface is glistening wilkerson. The lymph node is serially sectioned and entirely submitted in one cassette. Signed (signature on file) Bertram Avalos MD [id number] END OF REPORT * ML=Testing performed at Main Lab DEPARTMENT OF PATHOLOGY, [address] [place] [address] Bertram Avalos M.D. Director [facility] # [id number] 4 [employer]: [id number] LUCAS MOODY 5 [employer] And Rescue: [id number] JORGE LEHMAN 6 [employer]: [id number] Kyler Pulido 7 RESULT: 70% Calcium oxalate monohydrate 8 RESULT: 30% Calcium phosphate (apatite) Test Performed by: [place] [address] Glove Maker: Vidal Gee II, M.D., Ph.D. 9 Critical Result LACT:2.8 Called to [id number] at: 10:20:53 by:[id number] Read back by:[id number] [facility] Severe Sepsis and Septic Shock Management Bundle Measure requires all lactic acids initially measuring >2.0 mmol/L be repeated. 10 SEE RESULT BELOW Name: LUCRETIA AC : [address]: Faustino Montgomery MD Acct: [id number] Unit: [id number] AGE: 66 Location: [place] [address]- Re06/06/16 Dis: 06/14/16 SEX: F Status: DIS IN SPEC: [id number] LOUISE: 06/06/[address]: Vidal Briceño MD REQ: [id number] RECD: 06/06/16 STATUS: TONYA STROUD DR: Arcenio Nur MD _ SOURCE: BLOOD,VENO SPDESC: ORDERED: Blood Cult COMMENTS: Patient is On Antibiotics? NO Verbal to [id number] by [id number] at 0148 on 06/07/16. Results read back accurately. Procedure Result Reported Site Aerobic Culture Bottle Final 06/22/16- 1209 ML Aerobic Bottle Gram Stain Gram Negative Bacilli Organism 1 ESCHERICHIA COLI Please refer to [id number] culture ANAEROBIC bottle for sensitivity testing. Anaerobic Culture Bottle Final 06/08/16- 0854 ML Anaerobic Btl Gram Stain Gram Negative Coccobacilli Organism 1 ESCHERICHIA COLI 1. ESCHERICHIA COLI M.I.C. RX --------- ------ Ampicillin <=2 S Cefazolin <=4 S Cefepime <=1 S Ceftriaxone <=1 S Ciprofloxacin <=0.25 S Gentamicin <=1 S Levofloxacin <=0.12 S Meropenem <=0.25 S Nitrofurantoin <=16 S Tetracycline <=1 S CONTINUED ON NEXT PAGE * ML=Testing performed at Main Lab DEPARTMENT OF PATHOLOGY, [address] [place] [address] Bertram Avalos M.D. Director MICHELLE # [id number] Patient: LUCRETIA AC [id number] (Continued) Specimen: [id number] Collected: 06/06/16 Received: 06/06/16-1004 (Continued) Procedure Result Reported Site Anaerobic Culture Bottle Final (continued) 06/08/16853 1. ESCHERICHIA COLI (continued) M.I.C. RX --------- ------ Pipercillin/Tazobactam <=4 S Trimethoprim/Sulfamethoxazole <=20 S Amoxicillin/Clavulanic Acid <=2 S Aztreonam <=1 S Contact the Microbiology Department for any additional antibiotic reporting. * ML - MAIN LAB ([facility]) . END OF REPORT * ML=Testing performed at Main Lab DEPARTMENT OF PATHOLOGY, [address] [place] [address] Bertram Avalos M.D. Director [facility] # [id number] 11 Acute inflammation: >10.00 12 Reference Range and Interpretation: TnI (ng/mL) Interpretation Less Than 0.03 ng/mL Not supportive of diagnosis of ME 0.03 - 0.50 ng/mL Indeterminate: suggest serial studies if clinically indicated. Greater than 0.5 ng/mL Consistent with diagnosis of ME 13 Because ethnic data is not always readily available, this report includes an eGFR for both -Americans and non- Americans. The National Kidney Disease Education Program (NKDEP) does not endorse the use of the MDRD equation for patients that are not between the ages of 18 and 70, are , have extremes of body size, muscle mass, or nutritional status, or are non- or non-. According to the National Kidney Foundation, irrespective of diagnosis, the stage of the disease is based on the level of kidney function: Stage Description GFR(mL/min/1.73 m(2)) 1 Kidney damage with normal or decreased GFR 90 2 Kidney damage with mild decrease in GFR 60-89 3 Moderate decrease in GFR 30-59 4 Severe decrease in GFR 15-29 5 Kidney failure <15 (or dialysis) 14 >100 to <200 pg/mL: likely compensated congestive heart failure (CHF) 200 to 400 pg/mL: likely moderate CHF >400 pg/mL: likely moderate to severe CHF 15 [employer]: [id number] JULEE MILLAN 16 SEE RESULT BELOW Name: LUCRETIA AC : [address]: Nando Blanco MD Acct: [id number] Unit: [id number] AGE: 66 Location: [place] [address] Re06/06/16 SEX: F Status: ADM IN SPEC: [id number] LOUISE: 06/06/16-1038 [facility] DR: Vidal Briceño MD REQ: [id number] RECD: 06/06/160 STATUS: TONYA STROUD DR: Arcenio Nur MD _ SOURCE: URINE SPDESC: ORDERED: Urine Culture Procedure Result Reported Site Urine Culture Final 06/08/16- 816 ML Organism 1 ESCHERICHIA COLI Desmet Count 75-100,000 (Many) CFU/ML 1. ESCHERICHIA COLI M.I.C. RX --------- ------ Ampicillin <=2 S Cefazolin <=4 S Cefepime <=1 S Ceftriaxone <=1 S Ciprofloxacin <=0.25 S Gentamicin <=1 S Levofloxacin <=0.12 S Meropenem <=0.25 S Nitrofurantoin <=16 S Tetracycline <=1 S Pipercillin/Tazobactam <=4 S Trimethoprim/Sulfamethoxazole <=20 S Amoxicillin/Clavulanic Acid <=2 S Aztreonam <=1 S Contact the Microbiology Department for any additional antibiotic reporting. * ML - MAIN LAB ([facility]) . END OF REPORT * ML=Testing performed at Main Lab DEPARTMENT OF PATHOLOGY, [address] [place] [address] Bertram Avalos M.D. Director [facility] # [id number] 17 Reference Range and Interpretation: TnI (ng/mL) Interpretation Less Than 0.03 ng/mL Not supportive of diagnosis of ME 0.03 - 0.50 ng/mL Indeterminate: suggest serial studies if clinically indicated. Greater than 0.5 ng/mL Consistent with diagnosis of ME 18 Interpretive information available on [facility] Test Catalog at [email or web address] 19 [employer]: [id number] JULEE MILLAN 20 Critical Result LACT:3.6 Called to [id number] at: 13:05:16 by:[id number] Read back by:[id number] [facility] Severe Sepsis and Septic Shock Management Bundle Measure requires all lactic acids initially measuring >2.0 mmol/L be repeated. 21 [employer]: [id number] Kyler Pulido 22 [employer]: [id number] KRISTIN Mena 23 SEE RESULT BELOW Name: LUCRETIA AC : [address]: Naida Mas DO Acct: [id number] Unit: [id number] AGE: 65 Location: [place] [address] Re01/09/16 SEX: F Status: ADM IN SPEC: [id number] LOUISE: 01/09/16-[address]: Simone Sutherland DO REQ: [id number] RECD: 01/09/16 STATUS: TONYA STROUD DR: Arcenio Olivares MD [facility] Cristian Nur MD _ SOURCE: URINE SPDESC: ORDERED: Urine Culture Procedure Result Reported Site Urine Culture Final 01/10/16- 1222 ML No Growth (<1,000 CFU/mL) * ML - MAIN LAB ([facility]) . END OF REPORT * ML=Testing performed at Main Lab DEPARTMENT OF PATHOLOGY, [address] [place] [address] Bertram Avalos M.D. Director [facility] # [id number] 24 SEE RESULT BELOW Name: LUCRETIA AC DOB: [address]: Nima Rodriguez MD Acct: [id number] Unit: [id number] AGE: 65 Location: [place] [address] Re01/09/16 Dis: 01/13/16 SEX: F Status: DIS IN SPEC: [id number] LOUISE: 01/09/16 [facility] DR: Simone Sutherland DO REQ: [id number] RECD: 01/09/16 STATUS: COMP JOSEFINAHR DR: Arcenio Olivares MD [facility] Cristian Nur MD _ SOURCE: BLOOD,VENO SPDESC: ORDERED: Blood Cult Procedure Result Reported Site Aerobic Culture Bottle Final 01/14/16- 53 ML No Growth Day 5 Anaerobic Culture Bottle Final 01/14/16- 53 ML No Growth Day 5 * ML - MAIN LAB ([facility]) . END OF REPORT * ML=Testing performed at Main Lab DEPARTMENT OF PATHOLOGY, [address] [place] [address] Bertram Avalos M.D. Director [facility] # [id number] 25 [facility] Severe Sepsis and Septic Shock Management Bundle Measure requires all lactic acids initially measuring >2.0 mmol/L be repeated. 26 Because ethnic data is not always readily available, this report includes an eGFR for both -Americans and non- Americans. The National Kidney Disease Education Program (NKDEP) does not endorse the use of the MDRD equation for patients that are not between the ages of 18 and 70, are , have extremes of body size, muscle mass, or nutritional status, or are non- or non-. According to the National Kidney Foundation, irrespective of diagnosis, the stage of the disease is based on the level of kidney function: Stage Description GFR(mL/min/1.73 m(2)) 1 Kidney damage with normal or decreased GFR 90 2 Kidney damage with mild decrease in GFR 60-89 3 Moderate decrease in GFR 30-59 4 Severe decrease in GFR 15-29 5 Kidney failure <15 (or dialysis) 27 Reference Range and Interpretation: TnI (ng/mL) Interpretation Less Than 0.03 ng/mL Not supportive of diagnosis of ME 0.03 - 0.50 ng/mL Indeterminate: suggest serial studies if clinically indicated. Greater than 0.5 ng/mL Consistent with diagnosis of ME 28 SEE RESULT BELOW Name: LUCRETIA AC : [address]: Rene Baez MD Acct: [id number] Unit: [id number] AGE: 65 Location: [place] [address] Re12/09/15 SEX: F Status: ADM IN SPEC: [id number] LOUISE: 12/09/15-1634 [facility] DR: Vidal Briceño MD REQ: [id number] RECD: 12/09/15 STATUS: TONYA STROUD DR: Arcenio Nur MD _ SOURCE: URINE SPDESC: ORDERED: Urine Culture Procedure Result Reported Site Urine Culture Final 12/13/15- 08 ML Organism 1 ESCHERICHIA COLI Desmet Count 50-75,000 (Many) CFU/ML 1. ESCHERICHIA COLI M.I.C. RX --------- ------ Ampicillin 4 S Cefazolin <=4 S Cefepime <=1 S Ceftriaxone <=1 S Ciprofloxacin <=0.25 S Gentamicin <=1 S Levofloxacin <=0.12 S Meropenem <=0.25 S Nitrofurantoin 128 R Tetracycline 2 S Pipercillin/Tazobactam <=4 S Trimethoprim/Sulfamethoxazole <=20 S Amoxicillin/Clavulanic Acid <=2 S Aztreonam <=1 S Contact the Microbiology Department for any additional antibiotic reporting. * ML - MAIN LAB ([facility]) . END OF REPORT * ML=Testing performed at Main Lab DEPARTMENT OF PATHOLOGY, [address] [place] [address] Bertram Avalos M.D. Director [facility] # [id number] 29 Acute inflammation: >10.00 30 SEE RESULT BELOW Name: LUCRETIA AC : [address]: Emma Kearney MD Acct: [id number] Unit: [id number] AGE: 65 Location: [place] [address] Re12/09/15 SEX: F Status: ADM IN SPEC: [id number] LOUISE: 12/09/[address]: Vidal Briceño MD REQ: [id number] RECD: 12/09/15 STATUS: TONYA STROUD DR: Arcenio Nur MD _ SOURCE: BLOOD,VENO SPDESC: ORDERED: Blood Cult COMMENTS: Patient is On Antibiotics? NO RFA Procedure Result Reported Site Aerobic Culture Bottle Final 12/14/151951 ML No Growth Day 5 Anaerobic Culture Bottle Final 12/14/151951 ML No Growth Day 5 * ML - MAIN LAB ([facility]) . END OF REPORT * ML=Testing performed at Main Lab DEPARTMENT OF PATHOLOGY, [address] [place] [address] Bertram Avalos M.D. Director [facility] # [id number] 31 Because ethnic data is not always readily available, this report includes an eGFR for both -Americans and non- Americans. The National Kidney Disease Education Program (NKDEP) does not endorse the use of the MDRD equation for patients that are not between the ages of 18 and 70, are , have extremes of body size, muscle mass, or nutritional status, or are non- or non-. According to the National Kidney Foundation, irrespective of diagnosis, the stage of the disease is based on the level of kidney function: Stage Description GFR(mL/min/1.73 m(2)) 1 Kidney damage with normal or decreased GFR 90 2 Kidney damage with mild decrease in GFR 60-89 3 Moderate decrease in GFR 30-59 4 Severe decrease in GFR 15-29 5 Kidney failure <15 (or dialysis) 32 >100 to <200 pg/mL: likely compensated congestive heart failure (CHF) 200 to 400 pg/mL: likely moderate CHF >400 pg/mL: likely moderate to severe CHF 33 Reference Range and Interpretation: TnI (ng/mL) Interpretation Less Than 0.03 ng/mL Not supportive of diagnosis of ME 0.03 - 0.50 ng/mL Indeterminate: suggest serial studies if clinically indicated. Greater than 0.5 ng/mL Consistent with diagnosis of ME 34 [facility] Severe Sepsis and Septic Shock Management Bundle Measure requires all lactic acids initially measuring >2.0mmol/L be repeated. 35 SEE RESULT BELOW Name: LUCRETIA AC : [address]: Vidal Briceño MD Acct: [id number] Unit: [id number] AGE: 65 Location: [place] Re12/09/15 SEX: F Status: REG ER SPEC: [id number] LOUISE: 12/09/15 [facility] DR: Vidal Briceño MD REQ: [id number] RECD: 12/09/15 STATUS: TONYA STROUD DR: Arcenio Nur MD _ SOURCE: NONI [facility]: ORDERED: Flu A B Request Procedure Result Reported Site Rapid Influenza A B Request Final 12/09/152048 ML Specimen received for Influenza A/B Molecular testing * ML - MAIN LAB ([facility]) . END OF REPORT * ML=Testing performed at Main Lab DEPARTMENT OF PATHOLOGY, [address] [place] [address] Bertram Avalos M.D. Director [facility] # [id number] 36 [employer]: TARA CARUSO DAYANARA Procedures Date Code Description Status 09/27/2018 64264 EKG, Interpretation Only Completed 07/01/2017 49347 EKG, Interpretation Only Completed 10/15/2016 71094 Biopsy/Excision Deep Axillary Node(S) Completed 10/15/2016 35679 Mastectomy Partial Completed 10/15/2016 56812348 Mammogram Completed 09/24/2016 [id number] Mammogram Completed 09/18/2016 14643756 Mammogram Completed 06/09/2016 50772 ECHO Transthorasic Realtime 2D W Doppler & Color Flow Completed Hosp 06/07/2016 33407 EKG, Interpretation Only Completed 01/10/2016 99642 EKG, Interpretation Only Completed 12/09/2015 41129 EKG, Interpretation Only Completed Encounters Type Date Location Provider Dx Diagnosis Office Visit 11/30/2018 [facility] Margret Ivy, G92 Toxic encephalopathy 10:16a Assoc,pc [employer] Hospitalists R33.9 Retention of urine, unspecified N17.9 Acute kidney failure, unspecified N31.9 Neuromuscular dysfunction of bladder, unspecified E11.9 Type 2 diabetes mellitus without complications Office Visit 11/29/2018 10:15a Palliative Care Soraya R41.82 Altered mental Services Of Chidi Avila MD status, unspecified N39.0 Urinary tract infection, site not specified G35 Multiple sclerosis Z99.3 Dependence on wheelchair Office Visit 11/27/2018 [facility] Raya R41.82 Altered mental 10:14a Assocaudrey NP status, Hospitalists unspecified N39.0 Urinary tract infection, site not specified E11.9 Type 2 diabetes mellitus without complications L89.302 Pressure ulcer of unspecified buttock, stage 2 Office Visit 11/07/2018 10:08a [facility] Marisel Crawford N39.0 Urinary tract Assoc,audrey IDAZ infection, site Hospitalists not specified N31.9 Neuromuscular dysfunction of bladder, unspecified G35 Multiple sclerosis L89.312 Pressure ulcer of right buttock, stage 2 L89.322 Pressure ulcer of left buttock, stage 2 R41.82 Altered mental status, unspecified Office Visit 11/06/2018 10:07a [facility] Marisel Dill, R41.82 Altered mental Assoc,audrey DIAZ status, Hospitalists unspecified G92 Toxic encephalopathy A49.8 Other bacterial infections of unspecified site L89.152 Pressure ulcer of sacral region, stage 2 I10 Essential (primary) hypertension E11.9 Type 2 diabetes mellitus without complications Office Visit 11/05/2018 10:07a [facility] Lizet A49.8 Other bacterial Assoc,audrey Gaytan MD infections of Hospitalists unspecified site G92 Toxic encephalopathy L89.152 Pressure ulcer of sacral region, stage 2 I10 Essential (primary) hypertension E11.9 Type 2 diabetes mellitus without complications R14.0 Abdominal distension (gaseous) Office Visit 11/04/2018 [facility] Juan Griffiths T83.511A I/I react d/t 1:36p For Infectious Gunnar Lee indwelling Diseases urethral catheter, init G35 Multiple sclerosis N31.9 Neuromuscular dysfunction of bladder, unspecified Office Visit 11/04/2018 10:07a [facility] Lizet A49.8 Other bacterial Assoc,audrey Gaytan MD infections of Hospitalists unspecified site G92 Toxic encephalopathy L89.152 Pressure ulcer of sacral region, stage 2 E11.9 Type 2 diabetes mellitus without complications I10 Essential (primary) hypertension R14.0 Abdominal distension (gaseous) Office Visit 11/03/2018 10:06a [facility] Lizet A49.8 Other bacterial Assoc,audrey Gaytan MD infections of Hospitalists unspecified site G92 Toxic encephalopathy L89.152 Pressure ulcer of sacral region, stage 2 E11.9 Type 2 diabetes mellitus without complications I10 Essential (primary) hypertension R14.0 Abdominal distension (gaseous) Office Visit 11/02/2018 [facility] Juan Griffiths G93.40 Encephalopathy, 1:01p For Tad Lee M.D. unspecified Diseases N39.0 Urinary tract infection, site not specified N20.9 Urinary calculus, unspecified G35 Multiple sclerosis N31.9 Neuromuscular dysfunction of bladder, unspecified Z96.0 Presence of urogenital implants Office Visit 11/02/2018 8:45a Wound Care Netta Orozco E11.622 Type 2 diabetes [facility] Kathy, RE[employer]AB[employer]ITATION CASE[employer]ER mellitus with other skin ulcer L89.312 Pressure ulcer of right buttock, stage 2 L89.322 Pressure ulcer of left buttock, stage 2 Z78.9 Other specified health status Office Visit 11/02/2018 10:06a [facility] Giacomo Redding, A49.8 Other bacterial Assoc,audrey DIAZ infections of Hospitalists unspecified site K59.00 Constipation, unspecified L89.152 Pressure ulcer of sacral region, stage 2 G92 Toxic encephalopathy E11.9 Type 2 diabetes mellitus without complications M54.5 Low back pain G35 Multiple sclerosis N31.9 Neuromuscular dysfunction of bladder, unspecified Office Visit 11/01/2018 10:06a [facility] Giacomo Redding, G92 Toxic encephalopathy Assoc,audrey DIAZ Hospitalists K59.00 Constipation, unspecified A49.8 Other bacterial infections of unspecified site L89.152 Pressure ulcer of sacral region, stage 2 E11.9 Type 2 diabetes mellitus without complications M54.5 Low back pain G35 Multiple sclerosis N31.9 Neuromuscular dysfunction of bladder, unspecified Office Visit 10/31/2018 10:05a [facility] Giacomo Redding, A49.8 Other bacterial Assoc,audrey DIAZ infections of Hospitalists unspecified site K59.00 Constipation, unspecified L89.322 Pressure ulcer of left buttock, stage 2 G92 Toxic encephalopathy E11.9 Type 2 diabetes mellitus without complications M54.5 Low back pain G35 Multiple sclerosis N31.9 Neuromuscular dysfunction of bladder, unspecified Office Visit 10/30/2018 [facility] Emma Kearney, A41.9 Sepsis, 10:05a Assaudrey alfonso M.D. unspecified Hospitalists organism G40.909 Epilepsy, unsp, not intractable, without status epilepticus E11.9 Type 2 diabetes mellitus without complications I10 Essential (primary) hypertension L89.152 Pressure ulcer of sacral region, stage 2 Office Visit 10/27/2018 10:57a [facility] Naida A41.51 Sepsis due to Assocaudrey D.O. Escherichia coli Hospitalists [E. coli] N39.0 Urinary tract infection, site not specified L89.312 Pressure ulcer of right buttock, stage 2 L89.322 Pressure ulcer of left buttock, stage 2 G35 Multiple sclerosis N20.0 Calculus of kidney N31.8 Other neuromuscular dysfunction of bladder E11.9 Type 2 diabetes mellitus without complications I10 Essential (primary) hypertension Office Visit 10/26/2018 10:57a [facility] Naida N39.0 Urinary tract Assoc,audrey Mas D.O. 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 obst, unsp as Hospitalists to partial versus complete obst A41.89 Other specified sepsis G92 Toxic encephalopathy N39.0 Urinary tract infection, site not specified E87.6 Hypokalemia E83.42 Hypomagnesemia L89.312 Pressure ulcer of right buttock, stage 2 L89.322 Pressure ulcer of left buttock, stage 2 E11.9 Type 2 diabetes mellitus without complications G35 Multiple sclerosis N31.8 Other neuromuscular dysfunction of bladder C50.919 Malignant neoplasm of unsp site of unspecified female breast Office Visit 10/24/2018 10:56a [facility] Shazia K56.609 Uns intestnl Assocaudrey M.D. obst, unsp as Hospitalists to partial versus complete obst A41.89 Other specified sepsis G92 Toxic encephalopathy N39.0 Urinary tract infection, site not specified E87.6 Hypokalemia E83.42 Hypomagnesemia L89.312 Pressure ulcer of right buttock, stage 2 L89.322 Pressure ulcer of left buttock, stage 2 E11.9 Type 2 diabetes mellitus without complications G35 Multiple sclerosis N31.8 Other neuromuscular dysfunction of bladder C50.919 Malignant neoplasm of unsp site of unspecified female breast Office Visit 10/23/2018 10:56a [facility] Shazia A41.51 Sepsis due to Assoc,audrey Lopes M.D. Escherichia coli Hospitalists [E. coli] G92 Toxic encephalopathy N39.0 Urinary tract infection, site not specified E87.6 Hypokalemia E83.42 Hypomagnesemia L89.322 Pressure ulcer of left buttock, stage 2 L89.312 Pressure ulcer of right buttock, stage 2 E11.9 Type 2 diabetes mellitus without complications G35 Multiple sclerosis N31.8 Other neuromuscular dysfunction of bladder C50.919 Malignant neoplasm of unsp site of unspecified female breast Office Visit 10/22/2018 10:56a [facility] Luisana A41.89 Other specified Assoc,audrey Oscar DO sepsis Hospitalists G92 Toxic encephalopathy L89.312 Pressure ulcer of right buttock, stage 2 L89.322 Pressure ulcer of left buttock, stage 2 E11.9 Type 2 diabetes mellitus without complications G35 Multiple sclerosis N31.8 Other neuromuscular dysfunction of bladder E87.8 Oth disorders of electrolyte and fluid balance, NEC Office Visit 10/21/2018 12:08p [facility] Juan Griffiths N39.0 Urinary tract Infectious Gunnar Lee infection, site Diseases not specified G35 Multiple sclerosis R33.9 Retention of urine, unspecified Z96.0 Presence of urogenital implants Office Visit 10/21/2018 [facility] G92 Toxic encephalopathy 10:55a Assoc,audrey Mix NP Hospitalists A41.89 Other specified sepsis L89.312 Pressure ulcer of right buttock, stage 2 L89.322 Pressure ulcer of left buttock, stage 2 E87.8 Oth disorders of electrolyte and fluid balance, NEC E11.9 Type 2 diabetes mellitus without complications G35 Multiple sclerosis N31.8 Other neuromuscular dysfunction of bladder G40.909 Epilepsy, unsp, not intractable, without status epilepticus Office Visit 10/20/2018 10:55a [facility] Faustino A41.89 Other specified Assoc,audrey Montgomery M.D. sepsis Hospitalists G92 Toxic encephalopathy L89.312 Pressure ulcer of right buttock, stage 2 L89.322 Pressure ulcer of left buttock, stage 2 E11.9 Type 2 diabetes mellitus without complications G35 Multiple sclerosis N31.8 Other neuromuscular dysfunction of bladder G40.909 Epilepsy, unsp, not intractable, without status epilepticus Office Visit 10/19/2018 [facility] Faustino N31.8 Other neuromuscular 10:55a Assoc,audrey Montgomery M.D. dysfunction of Hospitalists bladder G92 Toxic encephalopathy R41.82 Altered mental status, unspecified G35 Multiple sclerosis E11.9 Type 2 diabetes mellitus without complications I10 Essential (primary) hypertension E83.52 Hypercalcemia L89.312 Pressure ulcer of right buttock, stage 2 L89.322 Pressure ulcer of left buttock, stage 2 [facility]07[facility] A41.89 Other specified Assoc,audrey Maher sepsis Hospitalists F05 Delirium due to known physiological condition N17.9 Acute kidney failure, unspecified G35 Multiple sclerosis N31.9 Neuromuscular dysfunction of bladder, unspecified Office Visit 10/06/2018 10:51a [facility] Emma Kearney, N39.0 Urinary tract Assocaudrey M.D. infection, site Hospitalists not specified A41.9 Sepsis, unspecified organism N31.9 Neuromuscular dysfunction of bladder, unspecified R41.0 Disorientation, unspecified M54.5 Low back pain N17.9 Acute kidney failure, unspecified E11.9 Type 2 diabetes mellitus without complications G35 Multiple sclerosis G40.909 Epilepsy, unsp, not intractable, without status epilepticus Office Visit 10/05/2018 [facility] Juan Griffiths T83.511A I/I react d/t 9:11a For Infectious Gunnar Lee indwelling Diseases urethral catheter, init R50.9 Fever, unspecified [facility] N[facility]0 Urinary tract Assocaudrey M.D. infection, site Hospitalists not specified A41.9 Sepsis, unspecified organism N31.9 Neuromuscular dysfunction of bladder, unspecified R41.0 Disorientation, unspecified M54.5 Low back pain N17.9 Acute kidney failure, unspecified E11.9 Type 2 diabetes mellitus without complications G35 Multiple sclerosis G40.909 Epilepsy, unsp, not intractable, without status epilepticus Office Visit 10/04/2018 10:50a [facility] Beau Griffiths N39.0 Urinary tract Assoc,audrey Howard M.D.,FACP infection, site Hospitalists not specified A41.9 Sepsis, unspecified organism N31.9 Neuromuscular dysfunction of bladder, unspecified K59.00 Constipation, unspecified E11.9 Type 2 diabetes mellitus without complications G35 Multiple sclerosis Office Visit 10/03/2018 10:50a [facility] Beau D. N39.0 Urinary tract Assoc,audrey Howard M.D.,FACP infection, site Hospitalists not specified N31.9 Neuromuscular dysfunction of bladder, unspecified R41.0 Disorientation, unspecified E11.9 Type 2 diabetes mellitus without complications G35 Multiple sclerosis Office Visit 10/02/2018 10:49a [facility] Beau D. N39.0 Urinary tract Assoc,audrey Howard M.D.,FACP infection, site Hospitalists not specified N31.9 Neuromuscular dysfunction of bladder, unspecified R41.0 Disorientation, unspecified E11.9 Type 2 diabetes mellitus without complications G35 Multiple sclerosis Office Visit 10/01/2018 10:49a [facility] N39.0 Urinary tract Assoc,pc [place], REHABILITATION CASEWORKER infection, site Hospitalists not specified N31.9 Neuromuscular dysfunction of bladder, unspecified N17.9 Acute kidney failure, unspecified R06.82 Tachypnea, not elsewhere classified R14.0 Abdominal distension (gaseous) E11.9 Type 2 diabetes mellitus without complications G35 Multiple sclerosis R41.0 Disorientation, unspecified M54.5 Low back pain Office Visit 09/30/2018 10:48a [facility] N39.0 Urinary tract Assoc,pc [place], REHABILITATION CASEWORKER infection, site Hospitalists not specified N31.9 Neuromuscular dysfunction of bladder, unspecified N17.9 Acute kidney failure, unspecified E11.9 Type 2 diabetes mellitus without complications R14.0 Abdominal distension (gaseous) R06.82 Tachypnea, not elsewhere classified R41.0 Disorientation, unspecified M54.5 Low back pain G35 Multiple sclerosis Office Visit 09/30/2018 8:13a [facility] R50.9 Fever, Infectious Gunnar Lee unspecified Diseases R10.9 Unspecified abdominal pain Z96.0 Presence of urogenital implants Office Visit 09/29/2018 8:02a [facility] R50.9 Fever, Infectious Gunnar Lee unspecified Diseases R10.9 Unspecified abdominal pain Z96.0 Presence of urogenital implants B37.89 Other sites of candidiasis Office Visit 09/29/2018 10:48a [facility] N39.0 Urinary tract Assoc,audrey Riddle NP infection, site Hospitalists not specified N31.9 Neuromuscular dysfunction of bladder, unspecified N17.9 Acute kidney failure, unspecified R14.0 Abdominal distension (gaseous) R06.82 Tachypnea, not elsewhere classified R41.0 Disorientation, unspecified M54.5 Low back pain G35 Multiple sclerosis E11.9 Type 2 diabetes mellitus without complications Office Visit 09/28/2018 10:48a [facility] Caio, N39.0 Urinary tract Assoc,audrey Maher infection, site Hospitalists not specified N31.9 Neuromuscular dysfunction of bladder, unspecified N17.9 Acute kidney failure, unspecified R41.0 Disorientation, unspecified M54.5 Low back pain G35 Multiple sclerosis G40.909 Epilepsy, unsp, not intractable, without status epilepticus E11.9 Type 2 diabetes mellitus without complications Office [facility] 09/27[facility]2018 [facility]9 Urinary calculus, Infectious Gunnar Lee unspecified Diseases R50.9 Fever, unspecified G35 Multiple sclerosis N31.9 Neuromuscular dysfunction of bladder, unspecified B37.89 Other sites of candidiasis Office Visit 09/27/2018 10[facility] N[facility].0 Urinary tract Assoc,audrey Maher infection, site Hospitalists not specified N31.9 Neuromuscular dysfunction of bladder, unspecified N17.9 Acute kidney failure, unspecified R41.0 Disorientation, unspecified M54.5 Low back pain G35 Multiple sclerosis G40.909 Epilepsy, unsp, not intractable, without status epilepticus E11.9 Type 2 diabetes mellitus without complications Office Visit 09/[facility]2018 [facility] N[facility] Urinary tract Assoc,audrey Maher infection, site Hospitalists not specified N31.9 Neuromuscular dysfunction of bladder, unspecified R41.0 Disorientation, unspecified M54.5 Low back pain G35 Multiple sclerosis G40.909 Epilepsy, unsp, not intractable, without status epilepticus E11.9 Type 2 diabetes mellitus without complications Office Visit 09/25/2018 10:47a [facility] Luisana N39.0 Urinary tract Assoc,pc DO Dayne infection, site Hospitalists not specified N31.9 Neuromuscular dysfunction of bladder, unspecified R41.0 Disorientation, unspecified G35 Multiple sclerosis G40.909 Epilepsy, unsp, not intractable, without status epilepticus Office Visit 09/24/2018 10:46a [facility] Sherice N39.0 Urinary tract Assoc,pc MD Carmen infection, site Hospitalists not specified N31.8 Other neuromuscular dysfunction of bladder E11.9 Type 2 diabetes mellitus without complications I10 Essential (primary) hypertension G35 Multiple sclerosis G40.909 Epilepsy, unsp, not intractable, without status epilepticus Office Visit 03/29/2018 [facility] Cristian Cutler5 Multiple 9:15a Adam Nur M.D. sclerosis Office Visit 03/04/2018 [facility] Shazia B96.1 Klebsiella 1:39p Assoc,pc Hospitalists Gunnar Lopes pneumoniae as the cause of diseases classd elswhr G93.40 Encephalopathy, unspecified N20.9 Urinary calculus, unspecified G35 Multiple sclerosis N31.9 Neuromuscular dysfunction of bladder, unspecified M16.12 Unilateral primary osteoarthritis, left hip G40.909 Epilepsy, unsp, not intractable, without status epilepticus E11.9 Type 2 diabetes mellitus without complications I10 Essential (primary) hypertension Office Visit 03/03/2018 1:20p [facility] N30.90 Cystitis, For Infectious Gunnar Lee unspecified Diseases without hematuria N31.9 Neuromuscular dysfunction of bladder, unspecified R41.82 Altered mental status, unspecified G35 Multiple sclerosis Office Visit 03/03/2018 1:38p [facility] N39.0 Urinary tract Assoc,audrey Lopes M.D. infection, site Hospitalists not specified N31.9 Neuromuscular dysfunction of bladder, unspecified G35 Multiple sclerosis G40.909 Epilepsy, unsp, not intractable, without status epilepticus E11.9 Type 2 diabetes mellitus without complications I10 Essential (primary) hypertension Office Visit 03/02/2018 1:38p [facility] Shazia N39.0 Urinary tract Assocaudrey M.D. infection, site Hospitalists not specified N31.9 Neuromuscular dysfunction of bladder, unspecified G35 Multiple sclerosis G40.909 Epilepsy, unsp, not intractable, without status epilepticus E11.9 Type 2 diabetes mellitus without complications I10 Essential (primary) hypertension Office Visit 03/01/2018 1:37p [facility] Shazia N39.0 Urinary tract Assoc,audrey Lopes M.D. infection, site Hospitalists not specified G35 Multiple sclerosis N31.9 Neuromuscular dysfunction of bladder, unspecified E11.9 Type 2 diabetes mellitus without complications I10 Essential (primary) hypertension Office Visit 01/19/2018 Orthopedic Daniela M79.641 Pain in right 2:30p [facility] Bailey M.D. hand Office Visit 01/05/2018 [facility] Clint Contreras, G90.09 Other idiopathic 2:30p peripheral autonomic neuropathy Office Visit 12/22/2017 Orthopedic Zeny Matson M79.641 Pain in right 3:15p [facility] CHANDRA hand Office Visit 12/22/2017 [facility] Clint Contreras, G90.09 Other idiopathic 2:10p peripheral autonomic neuropathy Office Visit 07/02/2017 [facility] Emma Kearney, N39.0 Urinary tract 7:57a Assaudrey alfonso M.D. infection, site Hospitalists not specified I95.9 Hypotension, unspecified G35 Multiple sclerosis A41.9 Sepsis, unspecified organism Office Visit 07/01/2017 [facility] Pam N39.0 Urinary tract 7:57a Assocaudrey NP infection, site Hospitalists not specified I95.9 Hypotension, unspecified G35 Multiple sclerosis A41.9 Sepsis, unspecified organism [facility] 7:56a Assaudrey alfonso NP infection, site Hospitalists not specified I95.9 Hypotension, unspecified G35 Multiple sclerosis A41.9 Sepsis, unspecified organism Office Visit 03/23/2017 9:15a [facility] Cristian Powers G35 [facility] Gunnar Nur sclerosis G47.10 Hypersomnia, unspecified Office Visit 10/14/2016 10:00a Surgical Rahul Giraldo C50.211 [facility] M.D. upper-inner quadrant of right female breast R21 Rash and other nonspecific skin eruption Office Visit 09/29/2016 Surgical Rahul Giraldo C50.211 Heribertoig neoplm of 3:15p [facility] M.D. upper-inner quadrant of right female breast Office Visit 06/14/2016 [facility] Faustino Yanna Multiple 9:35a Assocaudrey M.D. 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 coli] Office Visit 06/13/2016 9:35a [facility] Faustino Yanna Multiple Assocaudrey M.D. 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 coli] Office Visit 06/12/2016 9:32a [facility] Faustino Yanna Multiple Assocaudrey M.D. 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 coli] Office Visit 06/11/2016 2:52p [facility] Juan Griffiths A41.51 Sepsis due to For Tad Lee M.D. Escherichia coli Diseases [E. 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 coli] Office Visit 06/10/2016 9:25a [facility] Faustino Yanna Multiple Assocaudrey M.D. 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 coli] Office Visit 06/09/2016 9:24a [facility] Faustino G35 Multiple Assoc,pc Melecio Montgomery. 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 coli] Office Visit 06/07/2016 12:15p [facility] R41.82 Altered mental Assoc,audrey Hudson MD status, Hospitalists unspecified G93.49 Other encephalopathy A41.9 Sepsis, unspecified organism N39.0 Urinary tract infection, site not specified Office Visit 06/06/2016 12:14p [facility] R41.82 Altered mental Assoc,audrey Hudson MD status, Hospitalists unspecified A41.9 Sepsis, unspecified organism G93.49 Other encephalopathy N39.0 Urinary tract infection, site not specified Office Visit 03/24/2016 3:45p [facility] Cristian Powers G35 Multiple Services Of Chidi Nur M.D. sclerosis Office Visit 01/13/2016 12:39p [facility] Skyla Cid, N13.9 Obstructive and Assoc,pc N.P. reflux uropathy, Hospitalists unspecified G35 Multiple sclerosis A41.50 Gram-negative sepsis, unspecified N31.9 Neuromuscular dysfunction of bladder, unspecified Office Visit 01/13/2016 10:44a [facility] Rakan Griffiths N13.6 Pyonephrosis Infectious Gunnar Lee Diseases R78.81 Bacteremia B96.20 Unsp Escherichia coli as the cause of diseases classd elswhr G35 Multiple sclerosis Office Visit 01/11/2016 12:39p [facility] Karla E87.79 Other fluid Assoc,pc Janessa, TIANA overload Hospitalists A41.50 Gram-negative sepsis, unspecified N13.9 Obstructive and reflux uropathy, unspecified G35 Multiple sclerosis Office Visit 01/10/2016 10:40a [facility] Rakan Griffiths N39.0 Urinary tract Infectious Gunnar Lee infection, site Diseases not specified R78.81 Bacteremia N13.6 Pyonephrosis Z96.0 Presence of urogenital implants L89.159 Pressure ulcer of sacral region, unspecified stage G35 Multiple sclerosis Office Visit 01/10/2016 [facility] N13.9 Obstructive and 12:38p Assoc,audrey Riddle, REHABILITATION CASEWORKER reflux uropathy, Hospitalists unspecified G35 Multiple sclerosis A41.50 Gram-negative sepsis, unspecified N31.9 Neuromuscular dysfunction of bladder, unspecified Office Visit 01/09/2016 12:37p [facility] Riddle, G35 Multiple Assoc,pc REHABILITATION CASEWORKER sclerosis Hospitalists N31.9 Neuromuscular dysfunction of bladder, unspecified N30.00 Acute cystitis without hematuria A41.9 Sepsis, unspecified organism Office Visit 12/16/2015 [facility] Naida G93.40 Encephalopathy, 10:24a Assoc,audrey Mas D.O. unspecified Hospitalists N30.00 Acute cystitis without hematuria G35 Multiple sclerosis A41.9 Sepsis, unspecified organism Office Visit 12/15/2015 [facility] Rene G93.40 Encephalopathy, 10:09a Assaudrey alfonso MD unspecified Hospitalists N30.00 Acute cystitis without hematuria G35 Multiple sclerosis A41.9 Sepsis, unspecified organism Office Visit 12/14/2015 [facility] Emma G93.40 Encephalopathy, 10:08a audrey Holguin M.D. unspecified Hospitalists N30.00 Acute cystitis without hematuria G35 Multiple sclerosis A41.9 Sepsis, unspecified organism Office Visit 12/13/2015 10:08a [facility] Rene N30.00 Acute cystitis Assocaudrey MD without Hospitalists hematuria G35 Multiple sclerosis G93.40 Encephalopathy, unspecified A41.9 Sepsis, unspecified organism Office Visit 12/12/2015 10:07a [facility] N30.00 Acute cystitis Assoc,audrey Baez MD without Hospitalists hematuria G35 Multiple sclerosis A41.9 Sepsis, unspecified organism E11.9 Type 2 diabetes mellitus without complications Office Visit 12/12/2015 [facility] Catherine L89.159 Pressure ulcer of 9:46a Assoc,audrey Keys, [place] sacral region, Hospitalists unspecified stage L97.519 Non-prs chronic ulcer oth prt right foot w unsp severity L97.529 Non-pressure chronic ulcer oth prt left foot w unsp severity G35 Multiple sclerosis Office Visit 12/11/2015 10:07a [facility] Rene N30.00 Acute cystitis Assoc,audrey Baez MD without Hospitalists hematuria E11.9 Type 2 diabetes mellitus without complications G35 Multiple sclerosis A41.9 Sepsis, unspecified organism Office Visit 12/10/2015 10:04a [facility] Rene N30.00 Acute cystitis Assocaudrey MD without Hospitalists hematuria G35 Multiple sclerosis E11.9 Type 2 diabetes mellitus without complications A41.9 Sepsis, unspecified organism Office Visit 12/09/2015 [facility] Naida E11.9 Type 2 diabetes 10:04a Assaudrey alfonso D.O. mellitus without Hospitalists complications G35 Multiple sclerosis N30.00 Acute cystitis without hematuria A41.9 Sepsis, unspecified organism Office Visit 10/13/2015 10:22a [facility] Faustino N30.01 Acute cystitis Assocaudrey M.D. with hematuria Hospitalists A41.9 Sepsis, unspecified organism R78.89 Finding of oth substances, not normally found in blood G35 Multiple sclerosis Office Visit 10/12/2015 10:22a [facility] Faustino N30.01 Acute cystitis Assaudrey alfonso M.D. with hematuria Hospitalists A41.9 Sepsis, unspecified organism R79.89 Other specified abnormal findings of blood chemistry G35 Multiple sclerosis Office Visit 10/11/2015 10:21a [facility] Nima N30.01 Acute cystitis Assaudrey alfonso M.D. with hematuria Hospitalists A41.9 Sepsis, unspecified organism R79.89 Other specified abnormal findings of blood chemistry G35 Multiple sclerosis Office Visit 10/10/2015 10:20a [facility] Nima N30.01 Acute cystitis Assocaudrey M.D. with hematuria Hospitalists A41.9 Sepsis, unspecified organism R78.89 Finding of oth substances, not normally found in blood G35 Multiple sclerosis Office Visit 10/09/2015 [facility] Franklyn Sal N30.01 Acute cystitis 10:19a Assaudrey alfonso II, M.D. with hematuria Hospitalists A41.9 Sepsis, unspecified organism R79.89 Other specified abnormal findings of blood chemistry G35 Multiple sclerosis Office Visit 03/19/2015 3:45p [facility] Cristian Duarte [facility] Chidi Nur M.D. Sclerosis 729.5 Pain In Limb Office Visit 03/20/2014 3:45p [facility] Cristian Duarte [facility] Nur M.D. Sclerosis Office Visit 03/21/2013 3:15p [facility] Cristian Duarte [facility] Ch[facility] Nur M.D. Sclerosis Office Visit 05/03/2007 4:30p Neurosurgery Jarod Duarte [facility] Wheeler M.D. Sclerosis 729.5 Pain In Limb Office Visit 04/19/2007 4:00p Neuro[facility] Services Jarod Foster 729.5 Pain In Limb Of Chidi Wheeler M.D. Plan of Treatment Future Appointment(s):03/31/2019 3:00 pm - Cristian Nur M.D. at [id number]/16/2019 - Juan Lee M.D.N39.0 Urinary tract infection, site not [id number] Presence of urogenital jhsafbckX25.49 Other urogenital candidiasis
[2019-03-21] MEDS ORDERED: NS 0.9% 1000 ML** 1,000 ML IV.FLUID IV ONE (11:03)
--- NOTE | 2019-03-21 11:13 | ED ---
Complex/Multi-Sys Presentation - HPI Summary HPI Summary: This pt is a 68 y/o female, accompanied by her , presenting to [facility] c/o weakness and lethargy. Of note, pt had CT abdomen/pelvis on 03/04 that showed 3 mm stone at the left UVJ with mild obstruction. reports pt was transferred to [facility] to have a stent placed as soon as possible as Dr. Eaton, pt's urologist, was [place] of the [place]. At that time pt was also treated for a yeast infection, pt was placed on Fluconazole. states over the last couple of days pt "started going downhill." Pt has been lethargic and had a good appetite until yesterday, per . She notes she just started to feel poorly. Per , pt has been having problems with bowel movements and did not have a bowel movement for 1 week until today. notes pt had two small bowel movements today and states every 3 days is normal for the patient. Denies vomiting, fever, cough. Pt reports pain to her left flank. states pt has sores on her buttocks which have been present since discharge from hospital. reports pt takes hydrocodone and Advil for the pain at home as needed. Pt is unable to walk at home secondary to hx of MS. Pt has hx of frequent UTIs and last 03/16/[address] Lee, infectious disease and was placed on fluconzaole. At baseline AAOx3, here AAOx2. - History Of Current Complaint Chief Complaint: EDWeakness Time Seen by Provider: 03/21/19 10:55 Hx Obtained From: Patient Onset/Duration: Lasting Days, Still Present Timing: Days Severity Currently: Moderate Location: Pain At: - left flank Aggravating Factor(s): nothing Alleviating Factor(s): nothing Associated Signs And Symptoms: Positive: Weakness, Other - POSITIVE: left flank pain, lethargic, decreased appetite, sores, yeast infection, constipation.. Negative: Cough, Vomiting, Fever Related History: Recent Hospitalization - on 03/04 transferred to [facility] to have stent placed for left UVJ stone with obstruction - Allergies/Home Medications Allergies/Adverse Reactions: Allergies Allergy/AdvReac Type Severity Reaction Status Date / Time lisinopril Allergy Mild Swelling Verified 03/03/19 22:37 Sulfa (Sulfonamide AdvReac Intermediate Unknown Verified 03/03/19 22:37 Antibiotics) Reaction Details Home Medications: Home Medications Fluconazole [Fluconazole 200 mg tab] 200 mg PO DAILY 03/21/19 [History Confirmed 03/21/19] PMH/Surg Hx/FS Hx/Imm Hx Endocrine/Hematology History: Reports: Hx Diabetes Cardiovascular History: Reports: Hx Hypertension Denies: Hx Pacemaker/ICD GI History: Reports: Hx Gall Bladder Disease - cholecystectomy History: Reports: Hx Dialysis, Hx Kidney Infection, Hx Kidney Stones - HX OF AND CURRENTLY 09/2018, Other Problems/Disorders - HYDRONEPHROSIS Denies: Hx Renal Disease Musculoskeletal History: Reports: Other Musculoskeletal History - MS, DOES NOT AMBULATE; IN WC, sacral pressure ulcer-almost healed PER [facility]USBA Denies: Hx Arthritis Sensory History: Reports: Hx Contacts or Glasses - READING GLASSES Denies: Hx Hearing Aid Opthamlomology History: Reports: Hx Contacts or Glasses - READING GLASSES Neurological History: Reports: Hx Nerve Disease, Hx Seizures, Other Neuro Impairments/Disorders - MULTIPLE SCLEROSIS Denies: Hx Headaches Psychiatric History: Denies: Hx Anxiety, Hx Depression, Hx Panic Disorder - Cancer History Cancer Type, Location and Year: RIGHT BREAST CA W/ SURGICAL REMOVAL Hx Chemotherapy: No Hx Radiation Therapy: No - Surgical History Surgery Procedure, Year, and Place: CHOLECYSTECTOMY. RIGHT BREAST-LUMPECTOMY. KIDNEY STONE PROCEDURES Hx Anesthesia Reactions: No Infectious Disease History: No Infectious Disease History: Denies: Traveled Outside the [place] in Last 30 Days - Family History Known Family History: Positive: Diabetes - Social History Alcohol Use: None Hx Substance Use: No Substance Use Type: Reports: None Hx Tobacco Use: Yes Smoking Status (MU): Former Smoker Amount Used/How Often: X 1-2 YEARS Have You Smoked in the Last Year: No Review of Systems Constitutional: Other - POSITIVE: lethargic, decreased appetite Negative: Fever Negative: Cough Gastrointestinal: Other - POSITIVE: constipation Negative: Vomiting Positive: flank pain - left Skin: Other - POSITIVE: sores on buttocks Positive: Weakness - generalized All Other Systems Reviewed And Are Negative: Yes Physical Exam - Summary Physical Exam Summary: Constitutional: Chronically ill-appearing, somnolent but arouses to voice/ Skin: Warm, Dry. 8 x 5 pressure ulcer of the sacrum without obvious overlying infection HENT: Normocephalic; Atraumatic. Dry mucous membranes. Eyes: Conjunctiva normal Neck: Musculoskeletal ROM normal neck. (-) JVD, (-) Stridor Cardio: Rhythm regular, rate normal, Heart sounds normal; Intact distal pulses; Radial pulses are 2+ and symmetric. (-) Murmur Pulmonary/Chest wall: Effort normal. (-) Respiratory distress, (-) Wheezes, (-) Rales Abd: Soft, (-) Distension, (-) Guarding, (-) Rebound, left flank tenderness : leelee infection of the medial thighs Musculoskeletal: (-) Edema Lymph: (-) Cervical adenopathy Neuro: Alert, Oriented to person and place, but not time Psych: deferred Triage Information Reviewed: Yes Vital Signs On Initial Exam: Initial Vitals Temp Pulse Resp BP Pulse Ox 97.8 F 70 18 119/76 98 03/21/19 10:31 03/21/19 10:31 03/21/19 10:31 03/21/19 10:31 03/21/19 10:31 Vital Signs Reviewed: Yes - Lakesha Coma Scale Best Eye Response: 4 - Spontaneous Best Motor Response: 6 - Obeys Commands Best Verbal Response: 4 - Confused Coma Scale Total: 14 Diagnostics - Vital Signs Vital Signs Temp Pulse Resp BP Pulse Ox 03/21/19 10:31 97.8 F 70 18 119/76 98 - Laboratory Result Diagrams: 03/21/19 11:56 03/21/19 11:56 Lab Statement: Any lab studies that have been ordered have been reviewed, and results considered in the medical decision making process. - Radiology CXR Radiology Interpretation Completed By: Radiologist Summary of Radiographic Findings: Difficult patient positioning. No new focal consolidation is identified. ED physician has reviewed this report. - CT Brain CT CT Interpretation Completed By: Radiologist Summary of CT Findings: 1. No acute intracranial abnormality. 2. Moderate chronic small vessel ischemic disease is likely. ED physician has reviewed this report. - EKG 11:19 Cardiac Rate: NL EKG Rhythm: Sinus Rhythm Summary of EKG Findings: An EKG at 11:19 reveals normal sinus rhythm at 63 bpm , T wave inversions in lead III which are no change compared to EKG on 11/27. No other changes. Complex Multi-Symp Course/Dx Course Of Treatment: 68-year-old female with a history of MS, diabetes, hypertension, multiple UTIs and recent left kidney stone with mild hydronephrosis now status post stent at [facility] p/w fatigue. -VS notable for hypoxia to 95%, check CXR. -PE: Chronically ill-appearing high dry mucous membranes well provide IV fluids. Pressure ulcer to sacrum with granulation tissue and no overlying infection. -Labs included a lactic acid and urinalysis to assess for infection will provide fluids and reassess. - suspect AMS 2/2 UTI but will check head CT. Will d/w surety bond agent urolgist and ID regarding antibiotics given complexity. - Diagnoses Provider Diagnoses: UTI (urinary tract infection), Altered mental status Discharge - Sign-Out/Discharge Documenting (check all that apply): Patient Departure - Discharge Plan Condition: Stable Disposition: ADMITTED TO [facility] Referrals: Arcenio Olivares MD [Primary Care Provider] - - Billing Disposition and Condition Condition: STABLE Disposition: Admitted to [facility] - Attestation Statements Document Initiated by Scribe: Yes Documenting Scribe: Lizet Gandara Provider For Whom Scribe is Documenting (Include Credential): Anibal Rogers MD Scribe Attestation: I, Lizet Gandara, scribed for Anibal Rogers MD on 03/21/19 at 1416. Scribe Documentation Reviewed: Yes Provider Attestation: The documentation as recorded by the Lizet smith accurately reflects the service I personally performed and the decisions made by me, Anibal Rogers MD Status of Scribe Document: Viewed Consult Consult: 1343 - I talked to Dr. Lopes about the pt's condition who recommended calling Dr. Eaton of urology. 1348 - I spoke with Dr. Eaton about the pt who recommends speaking with Infectious Disease before running abx on the pt, and he would also like to see the renal US. 1357 - I spoke with Dr. Lee's nurse who will be contacting Dr. Lee to try and find an abx recommendation for the pt. 1408 - I spoke with Dr. Lee who recommended Cefepime, and I also spoke with Dr. Lopes who agrees.
[2019-03-21 12:02] LABS: ABS Eosinophils 0.3 10^3/ul (0-0.6); ABS Lymphocytes 1.7 10^3/ul (1.0-4.8); ABS Monocytes 1.4 10^3/ul (0-0.8); ABS Neutrophils 11.2 10^3/ul (1.5-7.7); Hematocrit 36 % (35-47); Lymphocyte % 11.8 %; Mean Corpuscular HGB Conc 33 g/dL (31-36); Mean Corpuscular Hemoglobin 30 pg (27-31); Mean Corpuscular Volume 91 fL (80-97); Mean Platelet Volume 8.4 fL (7.4-10.4); Platelet Count 278 10^3/uL (150-450); Red Blood Count 3.95 10^6 /uL (3.70-4.87); Red Cell Distribution Width 16 % (10-15); White Blood Count 14.7 10^3/uL (3.5-10.8)
[2019-03-21 12:19] LABS: Albumin 3.9 g/dL (3.2-5.2); BUN/Creatinine Ratio 32.4 (8-20); Calcium 10.1 mg/dL (8.6-10.3); EGFR African American 65.4 (>60); EGFR Non-African American 54.1 (>60); Globulin 3.8 g/dL (2-4); Potassium 4.9 mmol/L (3.5-5.0); Total Bilirubin 0.3 mg/dL (0.2-1.0); Total Protein 7.7 g/dL (6.4-8.9)
[2019-03-21 12:20] LABS: Troponin I 0.01 ng/mL (<0.04)
[2019-03-21 13:49] LABS: Urine Appearance Turbid; Urine Bacteria 2+ (Absent); Urine Bilirubin Negative (Negative); Urine Blood 2+ (Negative); Urine Color Amber; Urine Glucose Negative (Negative); Urine Ketones Negative (Negative); Urine Nitrite Negative (Negative); Urine Protein 2+(100 mg/dL) (Negative); Urine Red Blood Cell 3+(>10/hpf) (Absent); Urine Specific Gravity 1.017 (1.010-1.030); Urine Squamous Epithelial Cell Present (Absent); Urine Urobilinogen Negative (Negative); Urine White Blood Cell 3+(>20/hpf) (Absent)
[2019-03-21] MEDS ORDERED: Cefepime(*) 1 GM in NS 0.9% 50 ML* 50 ML IVPB ONE (14:11)
[2019-03-21] MEDS ORDERED: Cefepime 1 GM in Dextrose(*) 1 GM/50 ML BAG IV ONE (14:39)
[2019-03-21] MEDS ORDERED: Acetaminophen TAB* 325 MG PO PRN (16:34)
[2019-03-21] MEDS ORDERED: Dextrose 50% VIAL 50 ml IV PUSH PRN (16:36)
--- NOTE | 2019-03-21 19:11 | HP ---
CC: Dr. Olivares; Dr. Eaton; Dr. Nur * HISTORY AND PHYSICAL: DATE OF ADMISSION: 03/21/19 PRIMARY CARE PROVIDER: Dr. Olivares. OTHER PROVIDERS: Dr. Eaton, Dr. Nur. ATTENDING PHYSICIAN: Dr. Menon * (dictated by ROSY Garcia). CHIEF COMPLAINT: Lethargy, weakness. HISTORY OF PRESENT ILLNESS: Ms. Em is a 68-year-old female with a past medical history of recurrent UTIs, history of nephrolithiasis, MS, who presented to the ER today with increased weakness and lethargy. It is noted that on 03/04/19, CT of the abdomen showed a 3 mm stone with left UVJ mild obstruction. The patient was sent to [facility] for stent placement due to no urology coverage here. She followed up outpatient with Dr. Brewer due to urine culture growth of Leelee. The patient was placed on fluconazole 400 mg daily, which was later decreased to 200 mg daily due to interaction with carbamazepine. The patient started this medication on . She typically follows with Dr. Eaton, who is waiting for clearance from Infectious Disease for surgical intervention. Today, the patient presents because of lethargy that started yesterday and decreased p.o. intake. She has not yet eaten today and is only taking small sips of water. Her states she is more soft-spoken than usual. He notes she has perioral dryness. He believes her urine output has decreased, is darker, and contains sediment. The patient self caths at home 5 to 6 times per day with the help of her . She has a history of MS and uses a wheelchair or transfer chair for mobility. The patient denies chills, fevers, sweat. She denies chest pain, shortness of breath, cough. She denies abdominal pain, nausea, vomiting, diarrhea. She does note that she has decreased stool output, noting that she had not had a BM for 1 week and had 2 small bowel movements today. In the ER, the patient received a full workup, which included blood work revealing leukocytosis, elevated BUN and creatinine. There is no lactic acidosis. Urinalysis showed 2+ blood, 3+ LE, 2+ bacteria. Chest x-ray showed no new consolidation. CT of the head showed no intracranial abnormalities. The patient was given cefepime and normal saline 1 L bolus. The hospitalist was asked to evaluate the patient for admission. PAST MEDICAL HISTORY: 1. Multiple sclerosis. 2. Hypertension. 3. Hyperlipidemia. 4. Diabetes mellitus type 2. 5. Seizure disorder. 6. History of nephrolithiasis, left ureteral stent in February 2019. PAST SURGICAL HISTORY: Left ureteral stent, lithotripsy - multiple, left breast lumpectomy. HOME MEDICATIONS: 1. Acetaminophen 650 mg p.o. q.6 hours p.r.n. pain. 2. Anastrozole 1 mg p.o. at 1200. 3. Atorvastatin 40 mg p.o. at bedtime. 4. Baclofen 20 mg p.o. 4 times daily. 5. Carbamazepine 200 mg p.o. b.i.d. 6. Cholecalciferol 1000 units p.o. q.p.m. 7. Fluconazole 200 mg p.o. daily. 8. Glipizide 10 mg p.o. b.i.d. 9. Hydrocodone/acetaminophen 5/325 mg 1 tab p.o. q.6 hours p.r.n., MDD 4. 10. Losartan 100 mg p.o. daily. 11. Metoprolol succinate XL 100 mg p.o. daily with meals. 12. Multivitamin/minerals 1 tab p.o. q.a.m. 13. Oxybutynin 5 mg p.o. b.i.d. DRUG ALLERGIES: LISINOPRIL, swelling; SULFA, unknown. FAMILY HISTORY: Father, diabetes. Mother of leukemia. Paternal grandmother, diabetes mellitus. SOCIAL HISTORY: The patient quit smoking approximately 50 years ago. Prior to that, she smoked for approximately 1 year less than a pack per day. She does not use alcohol. She does not work. She lives with her and son. She also has a daughter, who is out of the house. In the event that she is unable to make her own medical decisions, she has appointed her who is her power of employment law attorney, Tyrel Em, to be her surrogate decision maker. REVIEW OF SYSTEMS: A 10-point review of systems has been performed and all the pertinent positives and negatives are in the HPI. All other systems are negative. PHYSICAL EXAMINATION GENERAL: Ms. Em is a well-developed, well-nourished, slightly overweight 68- year- old female, who is lying flat in bed. She is sleeping upon entering. She is lethargic and somnolent. She is very soft-spoken. She drifts in and out of sleep, but does awake to her name being called. Her relays most of the history. VITAL SIGNS: Temperature 98.4 temporal, heart rate 76, respiratory rate 18, oxygen saturation 97% on room air, blood pressure 169/99. HEENT: Normocephalic, atraumatic. Hearing grossly intact. Oral mucous membranes are dry. Perioral area is pink and flaking with dry skin. The pharynx is clear. RESPIRATORY: Symmetrical chest expansion without use of accessory muscles. The patient is unable to follow instructions for deep breathing. Lungs clear to auscultation without rhonchi, wheezes, or rales. CARDIOVASCULAR: Regular rate and rhythm without murmurs, rubs, clicks, or gallops. There is no JVD. ABDOMEN: Bowel sounds in all quadrants. The abdomen is soft. There is no tenderness to palpation. There is no CVA tenderness. MUSCULOSKELETAL: The patient has very limited lower extremity range of motion and movement due to MS. NEURO: The patient is somnolent. She wakes to name. She is oriented to self and place, not oriented to date, which is her baseline. DIAGNOSTIC STUDIES/LAB DATA: WBC 14.7. Sodium 134, chloride 99, anion gap 12 , BUN 33, creatinine 1.02, glucose 200, lactic acid 1.4. Urinalysis: 2+ protein, 2+ blood, 3+ LE, 2+ bacteria. Carbamazepine 8.9. ASSESSMENT AND PLAN: Ms. Em is a 68-year-old female with a past medical history of multiple sclerosis; history of left nephrolithiasis, status post left ureteral stent placement at the beginning of this month, who is currently being treated for candidal urinary tract infection with fluconazole, following with Dr. Brewer and Dr. Eaton, who presented today due to increased lethargy. She is found to have LE, blood, bacteria in the urine. Chest x-ray and CT are within normal limits. The patient will be admitted inpatient for: 1. Lethargy, weakness. The patient came in today with 2 days of worsening lethargy and weakness. CT and chest x-ray are within normal limits. She has no other symptoms or complaints. Her urinalysis shows 2+ blood, 3+ LE, 2+ bacteria. She has a long history of recurrent urinary tract infections and nephrolithiasis, most recent urinary tract infection with leelee, and she is currently being treated with fluconazole. A Mcwilliams is in place. She typically self caths. We will continue fluconazole with added cefepime [address] Eaton has been notified and will see the patient. Dr. Brewer has also been notified and will follow up. Urine culture has been sent. Ultrasound of the bladder and kidneys has been ordered. Record request from [facility] have been ordered. 2. Multiple sclerosis. Continue baclofen. 3. Seizure disorder. Continue carbamazepine. 4. Hypertension. Continue losartan. 5. Diabetes mellitus. Discontinue home medication glipizide. Start lispro sliding scale with fingersticks a.c. 6. Hyperlipidemia. Continue atorvastatin. 7. FEN: Heart-healthy diet. The patient has received 1 L normal saline bolus. She will be placed on normal saline at a rate of 125 cc per hour x2 bags with reassess need for further fluids after this. 8. DVT prophylaxis: According to the DVT Risk Assessment, the patient scores 3 , placing her at high risk. She will be started on Lovenox 40. 9. Code status: Full code. TIME SPENT: Approximately 60 minutes was spent on this admission, greater than half that time was spent with the patient and her obtaining history, performing physical, and reviewing the plan of care. The case has been reviewed with my attending, Dr. Menon, who is in agreement with the plan of care. ROSY AHN [id number]/CPS #: [id number] TORI
[2019-03-21] MEDS: Baclofen TAB* 20 MG PO SCH ×2 (19:51→20:07)
[2019-03-21] MEDS: Silver Sulfadiazine 1%* 20 GM TOPICAL SCH (19:57)
[2019-03-21] MEDS: Enoxaparin(*) 40 MG/0.4 ML SYR SUBCUT SCH (20:09)
[2019-03-21] MEDS: Oxybutynin TAB* 5 MG PO SCH (20:10)
[2019-03-21] MEDS: Cholecalciferol TAB* 1000 UNITS PO SCH (20:10)
[2019-03-21] MEDS: carBAMazepine TAB(*) 200 MG PO SCH (20:10)
[2019-03-21] MEDS: Atorvastatin* 40 MG TAB PO SCH (20:10)
[2019-03-21] MEDS: NS 0.9% 1000 ML** 1,000 ML IV SCH (21:22)
[2019-03-22] MEDS: Cefepime 1 GM in Dextrose(*) 1 GM/50 ML BAG IV SCH ×2 (04:33→16:42)
[2019-03-22] MEDS: NS 0.9% 1000 ML** 1,000 ML IV SCH (05:51)
[2019-03-22 06:21] LABS: ABS Eosinophils 0.2 10^3/ul (0-0.6); ABS Lymphocytes 1.5 10^3/ul (1.0-4.8); ABS Monocytes 0.9 10^3/ul (0-0.8); ABS Neutrophils 6.8 10^3/ul (1.5-7.7); Eosinophil % 1.9 %; Hematocrit 34 % (35-47); Hemoglobin 11.6 g/dL (12.0-16.0); Lymphocyte % 15.6 %; Mean Corpuscular HGB Conc 34 g/dL (31-36); Mean Corpuscular Hemoglobin 31 pg (27-31); Mean Corpuscular Volume 90 fL (80-97); Mean Platelet Volume 8.4 fL (7.4-10.4); Platelet Count 256 10^3/uL (150-450); Red Blood Count 3.74 10^6 /uL (3.70-4.87); Red Cell Distribution Width 16 % (10-15); White Blood Count 9.5 10^3/uL (3.5-10.8)
[2019-03-22 06:44] LABS: BUN/Creatinine Ratio 26.1 (8-20); EGFR African American 102.7 (>60); EGFR Non-African American 84.9 (>60); Potassium 4.5 mmol/L (3.5-5.0)
[2019-03-22] MEDS: Insulin LISPRO* 1 UNITS UNIT SUBCUT SCH ×3 (08:32→16:42)
[2019-03-22] MEDS: carBAMazepine TAB(*) 200 MG PO SCH ×2 (08:33→20:41)
[2019-03-22] MEDS: Losartan TAB* 25 MG PO SCH (08:34)
[2019-03-22] MEDS: Baclofen TAB* 20 MG PO SCH ×4 (08:34→20:41)
[2019-03-22] MEDS: Oxybutynin TAB* 5 MG PO SCH ×2 (08:35→20:41)
[2019-03-22] MEDS: Fluconazole 100 MG TAB* TAB PO SCH (08:35)
[2019-03-22] MEDS: Multivitamins/Minerals TAB PO SCH (08:35)
[2019-03-22] MEDS: Metoprolol Succinate XL TAB* 100 MG PO SCH (08:43)
[2019-03-22] MEDS: Silver Sulfadiazine 1%* 20 GM TOPICAL SCH ×2 (08:56→22:03)
[2019-03-22] MEDS: CMCS: Anastrozole (NF) 1 MG TAB PO SCH (12:27)
--- NOTE | 2019-03-22 13:13 | CONS ---
CONSULTATION REPORT: DATE OF CONSULT: 03/22/19 PRIMARY CARE PROVIDER: Dr. Arcenio Olivares. PROVIDER REQUESTING CONSULTATION: ROSY Garcia CONSULTING SERVICE: Infectious Disease. PROVIDER: Katharine Chavez NP. ATTENDING PHYSICIAN: Dr. Juan Brewer.* (DICTATED BY KATHARINE CHAVEZ NP) REASON FOR CONSULT: Possible urinary tract infection with history of leelee UTI. IMPRESSION: 1. Encephalopathy, present on admission, slowly improving per her . Differential diagnosis includes urinary tract infection. Has previously grown Proteus mirabilis and Leelee albicans most recently in her urine cultures. She has previously been treated with a long course of antifungal for leelee urinary tract infection. She was recently hospitalized at [facility] and underwent a stent insertion. Urinalysis at the time of admission with 2+ blood , 3+ leukocyte esterase, 3+ wbc's, squamous epithelial cells, bacteria. Urine culture is still pending at this time. Initial white count in the emergency room was 14.7, and 9.5 this morning. She continues to have recurrent urinary tract infection with a recurrent infection soon after completing antibiotic course. Component of this could be secondary to her ureteral stent or self- catheterization process. She had a renal bladder ultrasound showing no hydronephrosis with nephrolysis. 2. Nephrolithiasis without hydronephrosis. 3. Ureteral stent. 4. Multiple sclerosis with neurogenic bladder with self-catheterization at home. 5. Seizure disorder. RECOMMENDATION: Recommend continuing cefepime and fluconazole for now while we will await her urine culture results. We will continue to follow along, further recommendations will be based on clinical course and culture results. HISTORY OF PRESENT ILLNESS: Ms. Em is a 68-year-old female with past medical history significant for recurrent urinary tract infections with neurogenic bladder, who is straight caths at home, history of nephrolysis, multiple sclerosis, diabetes mellitus type 2, who was recently hospitalized here at [facility] with encephalopathy, suspected to be secondary to a leelee urinary tract infection. At that time, her urine grew Citrobacter braakii and she was discharged back to home. According to her she was also recently hospitalized at [facility]. On 03/04/19, she had an abdomen CT showing a 3 mm stone in the left UVJ with mild obstruction and she was sent to [facility] for a stent due to no urology coverage here. Urine culture from that presentation with Leelee albicans. The patient was initially placed on fluconazole 400 mg daily and then this was decreased to 200 mg daily due to concern for interaction with carbamazepine. She was seen in Dr. Brewer's office last week and was noted to be more lethargic and fatigued. It was felt that the fluconazole that she was on could be interacting with other medications, and the dose was adjusted as previously mentioned. She continued to be lethargic and fatigued over the course of the weekend. Due to the patient's lethargy and fatigue, she was not eating well, only taking small sips of water. He noted her urine output was decreased and darker. They presented to the emergency room for further evaluation of her symptoms. While in the emergency room, she had a full workup revealing leukocytosis with a white blood cell count of 14.7. She had a positive urinalysis with 2+ proteins, 2+ blood, 2+ leukocyte esterase, 3+ wbc's, 3+ rbc's, squamous epithelial cells present and bacteria 2+. She had an abdomen and bladder ultrasound showing no hydronephrosis. Additionally, she had a brain CT showing no acute intracranial pathology. A chest x-ray showing no focal consolidation. She was admitted by the hospitalist service. During her hospitalization, she was continued on cefepime. Her leukocytosis resolved. She continues to be fatigued and her reports with some continued lethargy. She has been afebrile. She was also continued on fluconazole. She currently denies any fevers, chills, cough, shortness of breath, joint pain, muscle pain, nausea, vomiting, diarrhea and abdominal pain. Denies any recent travel. She reports a generalized weakness. She denies any urinary symptoms such as urgency, frequency, dysuria with straight cath. Her reports yeast-like rash in her groin. There is a small rash under her chin on her upper chest. PAST MEDICAL HISTORY: 1. Multiple sclerosis with neurogenic bladder and self-catheterization at home. 2. Hypertension. 3. Hyperlipidemia. 4. Diabetes mellitus, type 2. 5. Seizure disorder. 6. Nephrolithiasis. 7. Recurrent urinary tract infections. 8. Breast cancer treated with lumpectomy and anastrazole. 9. Decreased appetite. PAST SURGICAL HISTORY: 1. Status post left stent insertion and lithotripsy. 2. Status post left breast lumpectomy. MEDICATIONS: Home medications include: 1. Metoprolol succinate 100 mg by mouth daily. 2. Multivitamin 1 tablet by mouth daily. 3. [place] 5/325 1 tablet by mouth every 6 hours as needed for pain. 4. Vitamin D 1000 units by mouth every evening. 5. Atorvastatin 40 mg by mouth at bedtime. 6. Acetaminophen 650 mg by mouth every 6 hours as needed for fever or pain. 7. Losartan 100 mg by mouth daily. 8. Anastrazole 1 mg by mouth daily. 9. Glipizide 10 mg by mouth twice daily. 10. Tegretol 200 mg by mouth twice daily. 11. Ditropan 5 mg by mouth twice daily. 12. Baclofen 20 mg by mouth 4 times daily. 13. Fluconazole 200 mg by mouth daily. Hospital medications: 1. Acetaminophen 650 mg by mouth every 6 hours as needed for fever or pain. 2. Anastrazole 1 mg by mouth daily. 3. Atorvastatin 40 mg by mouth daily at bedtime. 4. Baclofen 20 mg by mouth 4 times daily. 5. Tegretol 200 mg by mouth twice daily. 6. Cefepime 1 g IV every 12 hours. 7. Vitamin D 1000 units by mouth every evening. 8. Dextrose 25 mL IV push for glucose less than 60 as needed. 9. Lovenox 48 mg subcutaneous every day. 10. Fluconazole 200 mg by mouth daily. 11. [place] 5/325 one tablet by mouth every 6 hours as needed for pain. 12. Humalog insulin sliding scale subcutaneous with meals. 13. Losartan 100 mg by mouth daily. 14. Metoprolol succinate 100 mg by mouth daily with meals. 15. Multivitamin 1 tablet by mouth daily. 16. Oxybutynin 5 mg by mouth twice daily. 17. Silver sulfadiazine topical twice daily. 18. Sodium chloride 125 mL an hour intravenously. ALLERGIES: LISINOPRIL caused lip swelling. SULFA, unknown reaction as reaction occurred during her childhood. FAMILY HISTORY: Denies family history of recurrent resistant infections. Denies family history of coronary artery disease. Father and paternal grandmother with a history of diabetes. Mother with a history of leukemia. SOCIAL HISTORY: Denies alcohol, recreational drug use. She is a former smoker quitting 50 years ago. She smoked 1 pack a day for 1 year. REVIEW OF SYSTEMS: I performed a 10-point review of systems. All the pertinent positives and negatives are mentioned in the history of present illness. The remaining review of systems are negative. PHYSICAL EXAM: Vital Signs: Temperature 99.1, heart rate 90, respiratory rate 16, O2 sat 93% on room air, blood pressure 120/58. General Appearance: Awake, but drowsy, appears to be in no acute distress. Head: Normocephalic, atraumatic. Pupils are equal and reactive to light. Extraocular movements are intact. Mucous membranes are moist. Neck: Supple. No lymphadenopathy. Neurological: She is alert, but drowsy. Oriented to person, place. Cardiovascular: Regular rate and rhythm. S1, S2 present. No murmurs, rubs, or gallops heard. Respiratory: No accessory muscle use. Lungs are clear to auscultation bilateral. Abdomen: Bowel sounds present. Abdomen is soft, nontender, nondistended. Extremities: No lower extremity edema. Musculoskeletal: No clubbing or cyanosis noted. Psychological: Calm and cooperative. Skin: She has an erythematous rash on her upper chest. DIAGNOSTIC STUDIES/LAB DATA: Sodium 134, potassium 4.5, chloride 103, CO2 21, BUN 18, creatinine 0.69, glucose 236. White blood cell count 9.5, hemoglobin 11.6, hematocrit 34, platelet count 256. Urinalysis 2+ protein, 2+ blood, leukocyte esterase 3+, wbc's 3+, rbc's 3+, squamous epithelial cells present, bacteria 2+. Please see impression and recommendations outlined above. Thank you for asking us to see Ms. Em in consultation. The case has been reviewed with my attending, Dr. Brewer, who agrees with the plan of care. Reviewed by ADRIÁN LUCIO 03/24/19 1125 [id number] #: [id number] TORI
--- NOTE | 2019-03-22 15:52 | PN ---
Subjective Date of Service: 03/22/19 Interval History: Patient admitted yesterday with weakness, confusion. Had recent ureteral stent placement at [facility]. Patient is confused, cannot really answer questions accurately. She states she has pain in buttocks. She admits to constipation. Family History: Unchanged from Admission Social History: Unchanged from Admission Past Medical History: Unchanged from Admission Objective Active Medications: Acetaminophen (Tylenol Tab*) 650 mg PO Q6H PRN PRN Reason: pain/fever Hydrocodone Bitart/Acetaminophen ([place] 5-325 Tab*) 1 tab PO Q6H PRN PRN Reason: PAIN Anastrozole (Arimidex (Nf)) 1 mg PO 1200 [facility] Last Admin: 03/22/19 12:27 Dose: 1 mg Atorvastatin Calcium (Lipitor*) 40 mg PO BEDTIME [facility] Last Admin: 03/21/19 20:10 Dose: 40 mg Baclofen (Lioresal Tab*) 20 mg PO QID [facility] Last Admin: 03/22/19 15:00 Dose: Not Given Carbamazepine (Tegretol Tab(*)) 200 mg PO BID [facility] Last Admin: 03/22/19 08:33 Dose: 200 mg Cholecalciferol (Vitamin D Tab*) 1,000 units PO QPM [facility] Last Admin: 03/21/19 20:10 Dose: 1,000 units Dextrose (Dextrose 50% Vial 50 Ml*) 25 ml IV PUSH .FOR FS < 60 - SS PRN PRN Reason: FS < 60 Enoxaparin Sodium (Lovenox(*)) 40 mg SUBCUT Q24H [facility] Last Admin: 03/21/19 20:09 Dose: 40 mg Fluconazole (Diflucan 100 Mg Tab*) 200 mg PO DAILY [facility] Last Admin: 03/22/19 08:35 Dose: 200 mg Sodium Chloride (Ns 0.9% 1000 Ml) 1,000 mls @ 125 mls/hr IV PER RATE [facility] Stop: 03/23/19 00:14 Last Admin: 03/22/19 05:51 Dose: 125 mls/hr Cefepime HCl (Maxipime 1 Gm In Dextrose Duplex (*)) 1 gm in 50 mls @ 100 mls/ hr IV Q12H [facility] Last Admin: 03/22/19 04:33 Dose: 100 mls/hr Insulin Human Lispro (Humalog*) 0 units SUBCUT AC [facility]; Protocol Last Admin: 03/22/19 12:24 Dose: 6 unit Losartan Potassium (Cozaar Tab*) 100 mg PO DAILY [facility] Last Admin: 03/22/19 08:34 Dose: 100 mg Metoprolol Succinate (Toprol Xl Tab*) 100 mg PO DAILY WITH MEAL [facility] Last Admin: 03/22/19 08:43 Dose: 100 mg Multivitamins/Minerals (Theragran/Minerals Tab*) 1 tab PO QAM [facility] Last Admin: 03/22/19 08:35 Dose: 1 tab Oxybutynin Chloride (Ditropan Tab*) 5 mg PO BID [facility] Last Admin: 03/22/19 08:35 Dose: 5 mg Silver Sulfadiazine (Silvadine 1%*) 1 applic TOPICAL BID [facility] Last Admin: 03/22/19 08:56 Dose: 1 ea Vital Signs - 8 hr 03/22/19 03/22/19 08:00 11:15 Temperature 37.1 C Pulse Rate 92 Respiratory 18 18 Rate Blood Pressure 141/73 (mmHg) O2 Sat by Pulse 94 Oximetry Oxygen Devices in Use Now: None Appearance: alert, no distress Ears/Nose/Mouth/Throat: - - dry lips, moist OP Neck: NL Appearance and Movements; NL JVP, Trachea Midline Respiratory: Symmetrical Chest Expansion and Respiratory Effort, Clear to Auscultation Cardiovascular: NL Sounds; No Murmurs; No JVD, RRR Abdominal: NL Sounds; No Tenderness; No Distention Lymphatic: No Cervical Adenopathy Neurological: - - oriented to self Lines/Tubes/Other Access: Clean, Dry and Intact Peripheral IV Nutrition: Taking PO's Result Diagrams: 03/22/19 06:02 03/22/19 06:02 Additional Lab and Data: Laboratory Tests 10/02/18 10/03/18 10/03/18 21:00 06:10 07:15 Glucose POC Glucose (mg/dL) 282 H 185 H Calcium Magnesium C-Reactive Protein 51.26 H 10/03/18 10/03/18 10/04/18 11:58 20:32 05:29 Glucose POC Glucose (mg/dL) 236 H 346 H Calcium 8.9 Magnesium 1.7 L C-Reactive Protein 10/04/18 10/04/18 03/21/19 08:04 11:54 11:56 Glucose 200 H POC Glucose (mg/dL) 180 H 296 H Calcium Magnesium C-Reactive Protein 03/22/19 03/22/19 06:02 07:14 Glucose 236 H POC Glucose (mg/dL) 224 H Calcium Magnesium C-Reactive Protein Microbiology and Other Data: Microbiology 03/21/19 12:09 Urine Urine Culture - Final Assess/Plan/Problems-Billing Assessment: 68 year old woman with MS, here w/ encephalopathy, possible UTI - Patient Problems (1) Acute delirium Current Visit: No Status: Acute Priority: High Code(s): R41.0 - DISORIENTATION, UNSPECIFIED SNOMED Code(s): 3460148 Comment: -Per nursing documentation and 's report, improving -Likely acute due to infection, chronic due to MS (2) UTI (urinary tract infection) Current Visit: No Status: Acute Priority: High Comment: - Continue Cefipime - Urine culture shows mixed jolly, will repeat - Appreciate ID consult (3) DM2 (diabetes mellitus, type 2) Current Visit: No Status: Chronic Priority: Medium Comment: - Not well controlled, adding Lantus 10 units - Holding home glipizide - Continue Lispro SS (4) DVT prophylaxis Current Visit: No Status: Acute Priority: Low Code(s): ATP3362 - SNOMED Code(s): 635572044 Comment: - lovenox SQ Status and Disposition: inpatient
[2019-03-22] MEDS ORDERED: Insulin GLARGINE(*) 1 UNITS UNIT SUBCUT SCH (16:00)
[2019-03-22] MEDS: Polyethylene Glycol 3350* 17 GM PACKET PO SCH (16:22)
[2019-03-22] MEDS: Enoxaparin(*) 40 MG/0.4 ML SYR SUBCUT SCH (16:22)
[2019-03-22] MEDS: Cholecalciferol TAB* 1000 UNITS PO SCH (16:43)
[2019-03-22 20:20] LABS: Urine Appearance Cloudy; Urine Bacteria 1+ (Absent); Urine Bilirubin Negative (Negative); Urine Blood 2+ (Negative); Urine Color Yellow; Urine Glucose 2+(150 mg/dL) (Negative); Urine Ketones Negative (Negative); Urine Nitrite Negative (Negative); Urine Protein Negative (Negative); Urine Red Blood Cell 3+(>10/hpf) (Absent); Urine Specific Gravity 1.008 (1.010-1.030); Urine Urobilinogen Negative (Negative); Urine White Blood Cell 3+(>20/hpf) (Absent)
[2019-03-22] MEDS: Atorvastatin* 40 MG TAB PO SCH (20:41)
[2019-03-23] MEDS: Cefepime 1 GM in Dextrose(*) 1 GM/50 ML BAG IV SCH ×2 (04:52→16:57)
[2019-03-23] MEDS: Insulin LISPRO* 1 UNITS UNIT SUBCUT SCH ×3 (09:06→16:54)
[2019-03-23] MEDS: Metoprolol Succinate XL TAB* 100 MG PO SCH (09:07)
[2019-03-23] MEDS: Fluconazole 100 MG TAB* TAB PO SCH (09:09)
[2019-03-23] MEDS: Baclofen TAB* 20 MG PO SCH ×4 (09:09→21:25)
[2019-03-23] MEDS: Multivitamins/Minerals TAB PO SCH (09:10)
[2019-03-23] MEDS: Oxybutynin TAB* 5 MG PO SCH ×2 (09:10→21:25)
[2019-03-23] MEDS: carBAMazepine TAB(*) 200 MG PO SCH ×2 (09:10→21:25)
[2019-03-23] MEDS: Polyethylene Glycol 3350* 17 GM PACKET PO SCH (09:11)
[2019-03-23] MEDS: Silver Sulfadiazine 1%* 20 GM TOPICAL SCH ×2 (09:11→21:19)
[2019-03-23] MEDS: Losartan TAB* 25 MG PO SCH (09:13)
--- NOTE | 2019-03-23 10:27 | PN ---
Progress Note - Progress Note Date of Service: 03/23/19 SOAP: Subjective: CC: Encephalopathy HPI: Ms. Em is a 68 yo female with PMH significant for MS with neurogenic bladder, HTN, HLD, DM2, seizure disorder, nephrolithiasis, breast cancer, and recurrent UTIs. Reports intermittent fever and drowsiness. at bedside states that she continues to be more lethargic and drowsy than her baseline, and she is eating less than her normal, but appetite is improving. Denies chills, nausea, vomiting, or diarrhea. Reports discomfort in the right UE and weakness. Objective: Vital Signs - 8 hr 03/23/19 03/23/19 03:09 07:15 Temperature 97.4 F 98.8 F Pulse Rate 88 104 Respiratory 20 20 Rate Blood Pressure 150/83 165/83 (mmHg) O2 Sat by Pulse 96 95 Oximetry Physical Exam: General: NAD, sitting up in a chair Neurological: Drowsy, Oriented to person and place. Equal handgrips bilateral HEENT: Moist MM, no thrush Cardiovascular: Heart rate regular Respiratory: Lung sounds clear bilateral Abdominal: Bowel sounds present; ABD soft, non tender and non distended MSK: Right UE with full PROM, no tenderness with palpation of the shoulder, elbow or hand. Skin: Small area of erythematous rash to upper chest Laboratory Last Values WBC 9.5 10^3/uL (3.5-10.8) 03/22/19 06:02 RBC 3.74 10^6 /uL (3.70-4.87) 03/22/19 06:02 Hgb 11.6 g/dL (12.0-16.0) L 03/22/19 06:02 Hct 34 % (35-47) L 03/22/19 06:02 MCV 90 fL (80-97) 03/22/19 06:02 MCH 31 pg (27-31) 03/22/19 06:02 MCHC 34 g/dL (31-36) 03/22/19 06:02 RDW 16 % (10-15) H 03/22/19 06:02 Plt Count 256 10^3/uL (150-450) 03/22/19 06:02 MPV 8.4 fL (7.4-10.4) 03/22/19 06:02 Neut % (Auto) 72.3 % 03/22/19 06:02 Lymph % (Auto) 15.6 % 03/22/19 06:02 [place] % (Auto) 9.7 % 03/22/19 06:02 Eos % (Auto) 1.9 % 03/22/19 06:02 Baso % (Auto) 0.5 % 03/22/19 06:02 Absolute Neuts (auto) 6.8 10^3/ul (1.5-7.7) 03/22/19 06:02 Absolute Lymphs (auto) 1.5 10^3/ul (1.0-4.8) 03/22/19 06:02 Absolute Monos (auto) 0.9 10^3/ul (0-0.8) H 03/22/19 06:02 Absolute Eos (auto) 0.2 10^3/ul (0-0.6) 03/22/19 06:02 Absolute Basos (auto) 0.0 10^3/ul (0-0.2) 03/22/19 06:02 Absolute Nucleated RBC 0.0 10^3/ul 03/22/19 06:02 Nucleated RBC % 0.0 03/22/19 06:02 Sodium 134 mmol/L (135-145) L 03/22/19 06:02 Potassium 4.5 mmol/L (3.5-5.0) 03/22/19 06:02 Chloride 103 mmol/L (101-111) 03/22/19 06:02 Carbon Dioxide 21 mmol/L (22-32) L 03/22/19 06:02 Anion Gap 10 mmol/L (2-11) 03/22/19 06:02 BUN 18 mg/dL (6-24) 03/22/19 06:02 Creatinine 0.69 mg/dL (0.51-0.95) 03/22/19 06:02 Est GFR ( Amer) 102.7 (>60) 03/22/19 06:02 Est GFR (Non-Af Amer) 84.9 (>60) 03/22/19 06:02 BUN/Creatinine Ratio 26.1 (8-20) H 03/22/19 06:02 Glucose 236 mg/dL (70-100) H 03/22/19 06:02 POC Glucose (mg/dL) 236 mg/dL (70-100) H 03/22/19 16:21 Lactic Acid 1.4 mmol/L (0.5-2.0) 03/21/19 11:56 Calcium 9.0 mg/dL (8.6-10.3) 03/22/19 06:02 Total Bilirubin 0.30 mg/dL (0.2-1.0) 03/21/19 11:56 AST 19 U/L (13-39) 03/21/19 11:56 ALT 21 U/L (7-52) 03/21/19 11:56 Alkaline Phosphatase 72 U/L (34-104) 03/21/19 11:56 Troponin I 0.01 ng/mL (<0.04) 03/21/19 11:56 Total Protein 7.7 g/dL (6.4-8.9) 03/21/19 11:56 Albumin 3.9 g/dL (3.2-5.2) 03/21/19 11:56 Globulin 3.8 g/dL (2-4) 03/21/19 11:56 Albumin/Globulin Ratio 1.0 (1-3) 03/21/19 11:56 Urine Color Yellow 03/22/19 19:35 Urine Appearance Cloudy 03/22/19 19:35 Urine pH 6.0 (5-9) 03/22/19 19:35 Ur Specific [place] 1.008 (1.010-1.030) L 03/22/19 19:35 Urine Protein Negative (Negative) 03/22/19 19:35 Urine Ketones Negative (Negative) 03/22/19 19:35 Urine Blood 2+ (Negative) A 03/22/19 19:35 Urine Nitrate Negative (Negative) 03/22/19 19:35 Urine Bilirubin Negative (Negative) 03/22/19 19:35 Urine Urobilinogen Negative (Negative) 03/22/19 19:35 Ur Leukocyte Esterase 3+ (Negative) A 03/22/19 19:35 Urine WBC (Auto) 3+(>20/hpf) (Absent) A 03/22/19 19:35 Urine RBC (Auto) 3+(>10/hpf) (Absent) A 03/22/19 19:35 Ur Squamous Epith Cells Present (Absent) A 03/21/19 12:09 Urine Bacteria 1+ (Absent) A 03/22/19 19:35 Urine Glucose 2+(150 mg/dl) (Negative) A 03/22/19 19:35 Carbamazepine 8.9 mcg/mL (4.0-12.0) 03/21/19 11:56 Microbiology 03/21/19 16:52 Blood Culture - Preliminary Blood Venous No Growth Day 1 03/21/19 16:54 Blood Culture - Preliminary Blood Venous No Growth Day 1 03/21/19 12:09 Urine Culture - Final Urine Assessment: 1. Encephalopathy. Continues to slowly improve. Diff DX: UTI in the setting of urinary hardware. Discussed with microbiology what was seen in the urine culture (>100K serratia, E coli, and klebsiella). Urinary catheter with clear urine and sediment. Blood cultures with no growth on day 1. Afebrile and initial leukocytosis has resolved. 2. Nephrolithiasis without hydronephrosis. Ureteral stent in place. Urology following along and planing a stent exchange. 3. MS with neurogenic bladder. Straight caths at home. Indwelling catheter placed on admission 4. Seizure disorder. Plan: Discussed with the lab about working up the 1st urine culture as it had multiple gram negatives (E coli, Klebsiella, and Sirecia). Continue cefepime and fluconazole for now while we await the urine culture results. Recommend holding off on urological surgery until Wednesday, 03/27.
[2019-03-23] MEDS: CMCS: Anastrozole (NF) 1 MG TAB PO SCH (12:08)
--- NOTE | 2019-03-23 14:50 | PN ---
Subjective Date of Service: 03/23/19 Interval History: Patient and interviewed. She has irritation of both eyes, some photophobia. Denies allergies Also has irritation around lips, has been treated w/ topical cream in past at PCP. agrees she is a bit less confused today. Family History: Unchanged from Admission Social History: Unchanged from Admission Past Medical History: Unchanged from Admission Objective Active Medications: Acetaminophen (Tylenol Tab*) 650 mg PO Q6H PRN PRN Reason: pain/fever Hydrocodone Bitart/Acetaminophen ([place] 5-325 Tab*) 1 tab PO Q6H PRN PRN Reason: PAIN Anastrozole (Arimidex (Nf)) 1 mg PO 1200 [facility] Last Admin: 03/23/19 12:08 Dose: 1 mg Atorvastatin Calcium (Lipitor*) 40 mg PO BEDTIME [facility] Last Admin: 03/22/19 20:41 Dose: 40 mg Baclofen (Lioresal Tab*) 20 mg PO QID [facility] Last Admin: 03/23/19 13:49 Dose: 20 mg Carbamazepine (Tegretol Tab(*)) 200 mg PO BID [facility] Last Admin: 03/23/19 09:10 Dose: 200 mg Cholecalciferol (Vitamin D Tab*) 1,000 units PO QPM [facility] Last Admin: 03/22/19 16:43 Dose: 1,000 units Dextrose (Dextrose 50% Vial 50 Ml*) 25 ml IV PUSH .FOR FS < 60 - SS PRN PRN Reason: FS < 60 Enoxaparin Sodium (Lovenox(*)) 40 mg SUBCUT Q24H [facility] Last Admin: 03/22/19 16:22 Dose: 40 mg Fluconazole (Diflucan 100 Mg Tab*) 200 mg PO DAILY [facility] Last Admin: 03/23/19 09:09 Dose: 200 mg Cefepime HCl (Maxipime 1 Gm In Dextrose Duplex (*)) 1 gm in 50 mls @ 100 mls/ hr IV Q12H [facility] Last Admin: 03/23/19 04:52 Dose: 100 mls/hr Insulin Glargine (Lantus(*)) 10 units SUBCUT Q24H [facility] Last Admin: 03/22/19 16:22 Dose: 10 unit Insulin Human Lispro (Humalog*) 0 units SUBCUT AC [facility]; Protocol Last Admin: 03/23/19 12:07 Dose: 6 unit Losartan Potassium (Cozaar Tab*) 100 mg PO DAILY [facility] Last Admin: 03/23/19 09:13 Dose: 100 mg Metoprolol Succinate (Toprol Xl Tab*) 100 mg PO DAILY WITH MEAL [facility] Last Admin: 03/23/19 09:07 Dose: 100 mg Multivitamins/Minerals (Theragran/Minerals Tab*) 1 tab PO QAM [facility] Last Admin: 03/23/19 09:10 Dose: 1 tab Oxybutynin Chloride (Ditropan Tab*) 5 mg PO BID [facility] Last Admin: 03/23/19 09:10 Dose: 5 mg Polyethylene Glycol/Electrolytes (Miralax*) 17 gm PO DAILY [facility] Last Admin: 03/23/19 09:11 Dose: 17 gm Silver Sulfadiazine (Silvadine 1%*) 1 applic TOPICAL BID [facility] Last Admin: 03/23/19 09:11 Dose: 1 ea Vital Signs - 8 hr 03/23/19 07:15 Temperature 37.1 C Pulse Rate 104 Respiratory 20 Rate Blood Pressure 165/83 (mmHg) O2 Sat by Pulse 95 Oximetry Oxygen Devices in Use Now: None Appearance: awake, alert Eyes: - - mild periorbital edema, no rash Ears/Nose/Mouth/Throat: Clear Oropharnyx, Mucous Membranes Moist, - - erythema surrounding lips Neck: NL Appearance and Movements; NL JVP Respiratory: Symmetrical Chest Expansion and Respiratory Effort Cardiovascular: NL Sounds; No Murmurs; No JVD, RRR Abdominal: NL Sounds; No Tenderness; No Distention Lymphatic: No Cervical Adenopathy Neurological: - - alert, oriented to february,, not date, day, location [facility] Lines/Tubes/Other Access: Clean, Dry and Intact Peripheral IV Nutrition: Taking PO's Result Diagrams: 03/22/19 06:02 03/22/19 06:02 Additional Lab and Data: Laboratory Tests 03/22/19 03/22/19 03/22/19 07:14 11:48 16:21 POC Glucose (mg/dL) 224 H 254 H 236 H 03/23/19 03/23/19 07:35 11:40 POC Glucose (mg/dL) 225 H 290 H Microbiology and Other Data: Microbiology 03/21/19 12:09 Urine Urine Culture - Final 03/21/19 16:54 Blood Venous Blood Culture - Preliminary No Growth Day 1 03/21/19 16:52 Blood Venous Blood Culture - Preliminary No Growth Day 1 Assess/Plan/Problems-Billing Assessment: 68 year old woman with MS, here w/ encephalopathy, possible UTI - Patient Problems (1) Acute delirium Current Visit: No Status: Acute Priority: High Code(s): R41.0 - DISORIENTATION, UNSPECIFIED SNOMED Code(s): 8749557 Comment: -Patient slowly improving 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 Brewer (3) DM2 (diabetes mellitus, type 2) Current Visit: No Status: Chronic Priority: Medium Comment: - Not well controlled, increased Lantus 18 units - Holding home glipizide - Continue Lispro SS (4) DVT prophylaxis Current Visit: No Status: Acute Priority: Low Code(s): PUI5345 - SNOMED Code(s): 726416418 Comment: - lovenox SQ (5) History of ureter stent Current Visit: Yes Status: Acute Priority: Medium Code(s): APC9043 - SNOMED Code(s): 128322114 Comment: -Discussed case with Dr. Eaton and Dr. Brewer. -Plan is to exchange stent and retrieve kidney stone tomorrow or Wednesday. Status and Disposition: inpatient
[2019-03-23] MEDS: Insulin GLARGINE(*) 1 UNITS UNIT SUBCUT SCH (15:44)
[2019-03-23] MEDS: Cholecalciferol TAB* 1000 UNITS PO SCH (16:55)
[2019-03-23] MEDS: Enoxaparin(*) 40 MG/0.4 ML SYR SUBCUT SCH (16:55)
[2019-03-23] MEDS: Atorvastatin* 40 MG TAB PO SCH (21:25)
[2019-03-23] MEDS: Nystatin CREAM* 15 GM TUBE TOPICAL SCH (21:26)
[2019-03-23] MEDS: CMCS: Olopatadine 0.1% OPHTH (NF) 1 DROP BTL BOTH EYES SCH (21:28)
[2019-03-24] MEDS: Cefepime 1 GM in Dextrose(*) 1 GM/50 ML BAG IV SCH (04:56)
[2019-03-24] MEDS: Losartan TAB* 25 MG PO SCH (09:03)
[2019-03-24] MEDS: Metoprolol Succinate XL TAB* 100 MG PO SCH (09:03)
[2019-03-24] MEDS: Polyethylene Glycol 3350* 17 GM PACKET PO SCH (09:03)
[2019-03-24] MEDS: CMCS: Olopatadine 0.1% OPHTH (NF) 1 DROP BTL BOTH EYES SCH ×2 (09:03→22:39)
[2019-03-24] MEDS: Multivitamins/Minerals TAB PO SCH (09:04)
[2019-03-24] MEDS: Insulin LISPRO* 1 UNITS UNIT SUBCUT SCH ×3 (09:04→16:37)
[2019-03-24] MEDS: Oxybutynin TAB* 5 MG PO SCH ×2 (09:04→22:38)
[2019-03-24] MEDS: Baclofen TAB* 20 MG PO SCH ×4 (09:04→22:37)
[2019-03-24] MEDS: Fluconazole 100 MG TAB* TAB PO SCH (09:04)
[2019-03-24] MEDS: carBAMazepine TAB(*) 200 MG PO SCH ×2 (09:04→22:37)
[2019-03-24] MEDS: Nystatin CREAM* 15 GM TUBE TOPICAL SCH ×2 (09:05→22:42)
[2019-03-24] MEDS: Silver Sulfadiazine 1%* 20 GM TOPICAL SCH ×2 (09:05→22:56)
--- NOTE | 2019-03-24 09:45 | PN ---
Subjective Date of Service: 03/24/19 Interval History: Son at bedside, addressed his concerns. Patient having irritation at the eyes, no flank pain, no chest pain, no shortness of breath Family History: Unchanged from Admission Social History: Unchanged from Admission Past Medical History: Unchanged from Admission Objective Active Medications: Acetaminophen (Tylenol Tab*) 650 mg PO Q6H PRN PRN Reason: pain/fever Last Admin: 03/24/19 09:08 Dose: 650 mg Hydrocodone Bitart/Acetaminophen ([place] 5-325 Tab*) 1 tab PO Q6H PRN PRN Reason: PAIN Anastrozole (Arimidex (Nf)) 1 mg PO 1200 [facility] Last Admin: 03/23/19 12:08 Dose: 1 mg Atorvastatin Calcium (Lipitor*) 40 mg PO BEDTIME [facility] Last Admin: 03/23/19 21:25 Dose: 40 mg Baclofen (Lioresal Tab*) 20 mg PO QID [facility] Last Admin: 03/24/19 09:04 Dose: 20 mg Carbamazepine (Tegretol Tab(*)) 200 mg PO BID [facility] Last Admin: 03/24/19 09:04 Dose: 200 mg Cholecalciferol (Vitamin D Tab*) 1,000 units PO QPM [facility] Last Admin: 03/23/19 16:55 Dose: 1,000 units Dextrose (Dextrose 50% Vial 50 Ml*) 25 ml IV PUSH .FOR FS < 60 - SS PRN PRN Reason: FS < 60 Enoxaparin Sodium (Lovenox(*)) 40 mg SUBCUT Q24H [facility] Last Admin: 03/23/19 16:55 Dose: 40 mg Fluconazole (Diflucan 100 Mg Tab*) 200 mg PO DAILY [facility] Last Admin: 03/24/19 09:04 Dose: 200 mg Cefepime HCl (Maxipime 1 Gm In Dextrose Duplex (*)) 1 gm in 50 mls @ 100 mls/ hr IV Q12H [facility] Last Admin: 03/24/19 04:56 Dose: 100 mls/hr Insulin Glargine (Lantus(*)) 18 units SUBCUT Q24H [facility] Last Admin: 03/23/19 15:44 Dose: 18 unit Insulin Human Lispro (Humalog*) 0 units SUBCUT AC [facility]; Protocol Last Admin: 03/24/19 09:04 Dose: 6 unit Losartan Potassium (Cozaar Tab*) 100 mg PO DAILY [facility] Last Admin: 03/24/19 09:03 Dose: 100 mg Metoprolol Succinate (Toprol Xl Tab*) 100 mg PO DAILY WITH MEAL [facility] Last Admin: 03/24/19 09:03 Dose: 100 mg Multivitamins/Minerals (Theragran/Minerals Tab*) 1 tab PO QAM [facility] Last Admin: 03/24/19 09:04 Dose: 1 tab Nystatin (Nystatin Cream*) 1 applic TOPICAL BID [facility] Last Admin: 03/24/19 09:05 Dose: 1 applic Olopatadine HCl (Patanol 0.1% Ophth (Nf)) 1 drop BOTH EYES BID [facility]; Protocol Last Admin: 03/24/19 09:03 Dose: 1 drop Oxybutynin Chloride (Ditropan Tab*) 5 mg PO BID [facility] Last Admin: 03/24/19 09:04 Dose: 5 mg Polyethylene Glycol/Electrolytes (Miralax*) 17 gm PO DAILY [facility] Last Admin: 03/24/19 09:03 Dose: 17 gm Silver Sulfadiazine (Silvadine 1%*) 1 applic TOPICAL BID [facility] Last Admin: 03/24/19 09:05 Dose: 1 ea Vital Signs - 8 hr 03/24/19 03/24/19 03:14 07:15 Temperature 98.1 F 98.1 F Pulse Rate 91 78 Respiratory 20 20 Rate Blood Pressure 127/72 125/73 (mmHg) O2 Sat by Pulse 92 99 Oximetry Oxygen Devices in Use Now: None Appearance: Lying in bed, not in distress Eyes: PERRLA Respiratory: Symmetrical Chest Expansion and Respiratory Effort, Clear to Auscultation Cardiovascular: NL Sounds; No Murmurs; No JVD, RRR, - - trace upper extremity edema Abdominal: NL Sounds; No Tenderness; No Distention, No Hepatosplenomegaly Neurological: Alert and Oriented x 3 Result Diagrams: 03/22/19 06:02 03/22/19 06:02 Additional Lab and Data: Laboratory Tests 03/22/19 03/22/19 03/22/19 07:14 11:48 16:21 POC Glucose (mg/dL) 224 H 254 H 236 H 03/23/19 03/23/19 07:35 11:40 POC Glucose (mg/dL) 225 H 290 H Microbiology and Other Data: Microbiology 03/21/19 12:09 Urine Urine Culture - Final 03/21/19 16:54 Blood Venous Blood Culture - Preliminary No Growth Day 1 03/21/19 16:52 Blood Venous Blood Culture - Preliminary No Growth Day 1 Assess/Plan/Problems-Billing Assessment: 68 year old woman with MS, here w/ encephalopathy, possible UTI - Patient Problems (1) History of ureter stent Current Visit: Yes Status: Acute Priority: Medium Code(s): PSH8643 - SNOMED Code(s): 586420275 Comment: -Plan is to exchange stent and retrieve kidney stone Wednesday (2) Acute delirium Current Visit: No Status: Acute Priority: High Code(s): R41.0 - DISORIENTATION, UNSPECIFIED SNOMED Code(s): 3359813 Comment: -Patient slowly improving 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 (3) DM2 (diabetes mellitus, type 2) Current Visit: No Status: Chronic Priority: Medium Comment: - Not well controlled, increased Lantus 18 units- this admission - Holding home glipizide - Continue Lispro SS (4) Multiple sclerosis Current Visit: No Status: Chronic Priority: High Code(s): G35 - MULTIPLE SCLEROSIS SNOMED Code(s): 26498735 Comment: - Continue Baclofen and Tegretol (for muscle spasms, not seizures) (5) Neurogenic bladder Current Visit: No Status: Chronic Code(s): N31.9 - NEUROMUSCULAR DYSFUNCTION OF BLADDER, UNSPECIFIED SNOMED Code(s): 988278833 (6) UTI (urinary tract infection) Current Visit: No Status: Acute Priority: High Comment: - Continue Cefipime, fluconazole - Urine culture shows mixed jolly, repeat culture shows enterobacteria-likely contaminant? - will f/u ID recommendations
[2019-03-24] MEDS: HYDROcodone/ACETAMIN 5-325 MG* 1 TAB PO PRN (11:44)
[2019-03-24] MEDS: CMCS: Anastrozole (NF) 1 MG TAB PO SCH (11:46)
[2019-03-24] MEDS: Insulin GLARGINE(*) 1 UNITS UNIT SUBCUT SCH (14:22)
[2019-03-24] MEDS: Enoxaparin(*) 40 MG/0.4 ML SYR SUBCUT SCH (16:38)
[2019-03-24] MEDS: cefTRIAXone(*) 1 GM in NS 0.9% 50 ML* 50 ML IVPB SCH (16:38)
[2019-03-24] MEDS: Cholecalciferol TAB* 1000 UNITS PO SCH (17:01)
[2019-03-24] MEDS ORDERED: Glycerin ADULT SUPP PR ONE (18:52)
[2019-03-24] MEDS: Atorvastatin* 40 MG TAB PO SCH (22:36)
[2019-03-25] MEDS: carBAMazepine TAB(*) 200 MG PO SCH ×2 (09:33→23:01)
[2019-03-25] MEDS: Multivitamins/Minerals TAB PO SCH (09:33)
[2019-03-25] MEDS: Polyethylene Glycol 3350* 17 GM PACKET PO SCH (09:33)
[2019-03-25] MEDS: Baclofen TAB* 20 MG PO SCH ×4 (09:33→23:01)
[2019-03-25] MEDS: Losartan TAB* 25 MG PO SCH (09:33)
[2019-03-25] MEDS: Metoprolol Succinate XL TAB* 100 MG PO SCH (09:33)
[2019-03-25] MEDS: Oxybutynin TAB* 5 MG PO SCH ×2 (09:33→23:01)
[2019-03-25] MEDS: Fluconazole 100 MG TAB* TAB PO SCH (09:34)
[2019-03-25] MEDS: CMCS: Olopatadine 0.1% OPHTH (NF) 1 DROP BTL BOTH EYES SCH ×2 (09:34→23:01)
[2019-03-25] MEDS: Insulin LISPRO* 1 UNITS UNIT SUBCUT SCH ×3 (09:34→17:10)
[2019-03-25] MEDS: Nystatin CREAM* 15 GM TUBE TOPICAL SCH ×2 (09:34→23:25)
[2019-03-25] MEDS: Silver Sulfadiazine 1%* 20 GM TOPICAL SCH ×2 (10:22→23:26)
[2019-03-25] MEDS ORDERED: Calcium Carbonate CHEW TAB* 500 MG (TUMS) PO ONE (11:19)
--- NOTE | 2019-03-25 11:22 | PN ---
Subjective Date of Service: 03/25/19 Interval History: Doing well, afebrile at bedside. Having indigestion Family History: Unchanged from Admission Social History: Unchanged from Admission Past Medical History: Unchanged from Admission Objective Active Medications: Acetaminophen (Tylenol Tab*) 650 mg PO Q6H PRN PRN Reason: pain/fever Last Admin: 03/24/19 09:08 Dose: 650 mg Hydrocodone Bitart/Acetaminophen ([place] 5-325 Tab*) 1 tab PO Q6H PRN PRN Reason: PAIN Last Admin: 03/24/19 11:44 Dose: 1 tab Anastrozole (Arimidex (Nf)) 1 mg PO 1200 [facility] Last Admin: 03/24/19 11:46 Dose: 1 mg Atorvastatin Calcium (Lipitor*) 40 mg PO BEDTIME [facility] Last Admin: 03/24/19 22:36 Dose: 40 mg Baclofen (Lioresal Tab*) 20 mg PO QID [facility] Last Admin: 03/25/19 09:33 Dose: 20 mg Carbamazepine (Tegretol Tab(*)) 200 mg PO BID [facility] Last Admin: 03/25/19 09:33 Dose: 200 mg Cholecalciferol (Vitamin D Tab*) 1,000 units PO QPM [facility] Last Admin: 03/24/19 17:01 Dose: 1,000 units Dextrose (Dextrose 50% Vial 50 Ml*) 25 ml IV PUSH .FOR FS < 60 - SS PRN PRN Reason: FS < 60 Enoxaparin Sodium (Lovenox(*)) 40 mg SUBCUT Q24H [facility] Last Admin: 03/24/19 16:38 Dose: 40 mg Fluconazole (Diflucan 100 Mg Tab*) 200 mg PO DAILY [facility] Last Admin: 03/25/19 09:34 Dose: 200 mg Ceftriaxone Sodium 1 gm/ (Sodium Chloride) 50 mls @ 100 mls/hr IVPB Q24H [facility] Last Admin: 03/24/19 16:38 Dose: 100 mls/hr Insulin Glargine (Lantus(*)) 18 units SUBCUT Q24H [facility] Last Admin: 03/24/19 14:22 Dose: 18 unit Insulin Human Lispro (Humalog*) 0 units SUBCUT AC [facility]; Protocol Last Admin: 03/25/19 09:34 Dose: 2 unit Losartan Potassium (Cozaar Tab*) 100 mg PO DAILY [facility] Last Admin: 03/25/19 09:33 Dose: 100 mg Metoprolol Succinate (Toprol Xl Tab*) 100 mg PO DAILY WITH MEAL [facility] Last Admin: 03/25/19 09:33 Dose: 100 mg Multivitamins/Minerals (Theragran/Minerals Tab*) 1 tab PO QAM [facility] Last Admin: 03/25/19 09:33 Dose: 1 tab Nystatin (Nystatin Cream*) 1 applic TOPICAL BID [facility] Last Admin: 03/25/19 09:34 Dose: 1 applic Olopatadine HCl (Patanol 0.1% Ophth (Nf)) 1 drop BOTH EYES BID [facility]; Protocol Last Admin: 03/25/19 09:34 Dose: 1 drop Oxybutynin Chloride (Ditropan Tab*) 5 mg PO BID [facility] Last Admin: 03/25/19 09:33 Dose: 5 mg Polyethylene Glycol/Electrolytes (Miralax*) 17 gm PO DAILY [facility] Last Admin: 03/25/19 09:33 Dose: 17 gm Silver Sulfadiazine (Silvadine 1%*) 1 applic TOPICAL BID [facility] Last Admin: 03/25/19 10:22 Dose: Not Given Vital Signs - 8 hr 03/25/19 03/25/19 03/25/19 03:30 07:15 08:00 Temperature 99.2 F 98.5 F Pulse Rate 81 80 Respiratory 20 16 16 Rate Blood Pressure 116/66 101/59 (mmHg) O2 Sat by Pulse 95 97 Oximetry Oxygen Devices in Use Now: None Appearance: Sitting on chair, not in distress Eyes: PERRLA Respiratory: Clear to Auscultation Cardiovascular: NL Sounds; No Murmurs; No JVD, RRR Abdominal: No Hepatosplenomegaly, - - mild epigastric tenderness. normoactive bowel sounds Extremities: No Edema Skin: No Rash or Ulcers Neurological: Alert and Oriented x 3 Result Diagrams: 03/22/19 06:02 03/22/19 06:02 Additional Lab and Data: Laboratory Tests 03/22/19 03/22/19 03/22/19 07:14 11:48 16:21 POC Glucose (mg/dL) 224 H 254 H 236 H 03/23/19 03/23/19 07:35 11:40 POC Glucose (mg/dL) 225 H 290 H Microbiology and Other Data: Microbiology 03/21/19 16:52 Blood Culture - Preliminary Blood Venous No Growth Day 3 03/21/19 16:54 Blood Culture - Preliminary Blood Venous No Growth Day 3 03/21/19 12:09 Urine Culture - Final Urine Serratia Marcescens Raoutella Planticola Escherichia Coli 03/22/19 19:35 Urine Culture - Final Urine Assess/Plan/Problems-Billing Assessment: 68 year old woman with MS, here w/ encephalopathy, possible UTI - Patient Problems (1) History of ureter stent Current Visit: Yes Status: Acute Priority: Medium Code(s): BAP4465 - SNOMED Code(s): 133542794 Comment: -Plan is to exchange stent and retrieve kidney stone Wednesday (2) Acute delirium Current Visit: No Status: Acute Priority: High Code(s): R41.0 - DISORIENTATION, UNSPECIFIED SNOMED Code(s): 2535950 Comment: -Patient slowly improving 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 (3) DM2 (diabetes mellitus, type 2) Current Visit: No Status: Chronic Priority: Medium Comment: - Not well controlled, increased Lantus 18 units- this admission - Holding home glipizide - Continue Lispro SS (4) Multiple sclerosis Current Visit: No Status: Chronic Priority: High Code(s): G35 - MULTIPLE SCLEROSIS SNOMED Code(s): 28925896 Comment: - Continue Baclofen and Tegretol (for muscle spasms, not seizures) (5) Neurogenic bladder Current Visit: No Status: Chronic Code(s): N31.9 - NEUROMUSCULAR DYSFUNCTION OF BLADDER, UNSPECIFIED SNOMED Code(s): 036832448 (6) UTI (urinary tract infection) Current Visit: No Status: Acute Priority: High Comment: initial Urine culture- mulitple organisim, now repeat urine culture: enterobacteria likely contaminant, cefepime changed to roecephin yesterday c/w fluconazole ID following Status and Disposition: inpatient- for urological procedure planned for 03/27.
[2019-03-25] MEDS: CMCS: Anastrozole (NF) 1 MG TAB PO SCH (12:30)
[2019-03-25] MEDS: Insulin GLARGINE(*) 1 UNITS UNIT SUBCUT SCH (14:41)
[2019-03-25] MEDS: cefTRIAXone(*) 1 GM in NS 0.9% 50 ML* 50 ML IVPB SCH (17:10)
[2019-03-25] MEDS: Cholecalciferol TAB* 1000 UNITS PO SCH (17:10)
[2019-03-25] MEDS: Enoxaparin(*) 40 MG/0.4 ML SYR SUBCUT SCH (17:12)
[2019-03-25] MEDS: Atorvastatin* 40 MG TAB PO SCH (23:00)
[2019-03-26] MEDS: HYDROcodone/ACETAMIN 5-325 MG* 1 TAB PO PRN (07:34)
[2019-03-26] MEDS: Insulin LISPRO* 1 UNITS UNIT SUBCUT SCH ×3 (08:23→17:42)
[2019-03-26] MEDS: Losartan TAB* 25 MG PO SCH (08:24)
[2019-03-26] MEDS: Metoprolol Succinate XL TAB* 100 MG PO SCH (08:24)
[2019-03-26] MEDS: Polyethylene Glycol 3350* 17 GM PACKET PO SCH (08:25)
[2019-03-26] MEDS: Multivitamins/Minerals TAB PO SCH (08:25)
[2019-03-26] MEDS: carBAMazepine TAB(*) 200 MG PO SCH ×2 (08:25→21:23)
[2019-03-26] MEDS: Baclofen TAB* 20 MG PO SCH ×4 (08:25→21:23)
[2019-03-26] MEDS: Fluconazole 100 MG TAB* TAB PO SCH (08:25)
[2019-03-26] MEDS: Silver Sulfadiazine 1%* 20 GM TOPICAL SCH ×2 (08:26→23:57)
[2019-03-26] MEDS: CMCS: Olopatadine 0.1% OPHTH (NF) 1 DROP BTL BOTH EYES SCH ×2 (08:26→21:22)
[2019-03-26] MEDS: Nystatin CREAM* 15 GM TUBE TOPICAL SCH ×2 (08:27→23:57)
[2019-03-26] MEDS: Oxybutynin TAB* 5 MG PO SCH ×2 (08:27→21:23)
[2019-03-26] MEDS ORDERED: Polyethylene Glycol 3350* 17 GM PACKET PO PRN (09:01)
--- NOTE | 2019-03-26 09:03 | PN ---
Subjective Date of Service: 03/26/19 Interval History: No acute issues overnight. Patient reports no chills, no fever, no abdominal pain, no nausea, no vomiting Family History: Unchanged from Admission Social History: Unchanged from Admission Past Medical History: Unchanged from Admission Objective Active Medications: Acetaminophen (Tylenol Tab*) 650 mg PO Q6H PRN PRN Reason: pain/fever Last Admin: 03/24/19 09:08 Dose: 650 mg Hydrocodone Bitart/Acetaminophen ([place] 5-325 Tab*) 1 tab PO Q6H PRN PRN Reason: PAIN Last Admin: 03/26/19 07:34 Dose: 1 tab Anastrozole (Arimidex (Nf)) 1 mg PO 1200 [facility] Last Admin: 03/25/19 12:30 Dose: 1 mg Atorvastatin Calcium (Lipitor*) 40 mg PO BEDTIME [facility] Last Admin: 03/25/19 23:00 Dose: 40 mg Baclofen (Lioresal Tab*) 20 mg PO QID [facility] Last Admin: 03/26/19 08:25 Dose: 20 mg Carbamazepine (Tegretol Tab(*)) 200 mg PO BID [facility] Last Admin: 03/26/19 08:25 Dose: 200 mg Cholecalciferol (Vitamin D Tab*) 1,000 units PO QPM [facility] Last Admin: 03/25/19 17:10 Dose: 1,000 units Dextrose (Dextrose 50% Vial 50 Ml*) 25 ml IV PUSH .FOR FS < 60 - SS PRN PRN Reason: FS < 60 Enoxaparin Sodium (Lovenox(*)) 40 mg SUBCUT Q24H [facility] Last Admin: 03/25/19 17:12 Dose: 40 mg Fluconazole (Diflucan 100 Mg Tab*) 200 mg PO DAILY [facility] Last Admin: 03/26/19 08:25 Dose: 200 mg Ceftriaxone Sodium 1 gm/ (Sodium Chloride) 50 mls @ 100 mls/hr IVPB Q24H [facility] Last Admin: 03/25/19 17:10 Dose: 100 mls/hr Dextrose/Sodium Chloride (D5w 1/2 Ns 1000 Ml Bag*) 1,000 mls @ 75 mls/hr IV PER RATE [facility] Insulin Glargine (Lantus(*)) 18 units SUBCUT Q24H [facility] Last Admin: 03/25/19 14:41 Dose: 18 unit Insulin Human Lispro (Humalog*) 0 units SUBCUT AC [facility]; Protocol Last Admin: 03/26/19 08:23 Dose: 4 unit Losartan Potassium (Cozaar Tab*) 100 mg PO DAILY [facility] Last Admin: 03/26/19 08:24 Dose: 100 mg Metoprolol Succinate (Toprol Xl Tab*) 100 mg PO DAILY WITH MEAL [facility] Last Admin: 03/26/19 08:24 Dose: 100 mg Multivitamins/Minerals (Theragran/Minerals Tab*) 1 tab PO QAM [facility] Last Admin: 03/26/19 08:25 Dose: 1 tab Nystatin (Nystatin Cream*) 1 applic TOPICAL BID [facility] Last Admin: 03/26/19 08:27 Dose: 1 applic Olopatadine HCl (Patanol 0.1% Ophth (Nf)) 1 drop BOTH EYES BID [facility]; Protocol Last Admin: 03/26/19 08:26 Dose: 1 drop Oxybutynin Chloride (Ditropan Tab*) 5 mg PO BID [facility] Last Admin: 03/26/19 08:27 Dose: 5 mg Polyethylene Glycol/Electrolytes (Miralax*) 17 gm PO DAILY [facility] Last Admin: 03/26/19 08:25 Dose: 17 gm Silver Sulfadiazine (Silvadine 1%*) 1 applic TOPICAL BID [facility] Last Admin: 03/26/19 08:26 Dose: 1 ea Vital Signs - 8 hr 03/26/19 07:34 Respiratory 18 Rate Oxygen Devices in Use Now: None Appearance: Lying in bed, Not in distress Eyes: PERRLA Respiratory: Symmetrical Chest Expansion and Respiratory Effort, Clear to Auscultation Cardiovascular: NL Sounds; No Murmurs; No JVD, RRR Extremities: No Edema Neurological: Alert and Oriented x 3 Result Diagrams: 03/22/19 06:02 03/22/19 06:02 Additional Lab and Data: Laboratory Tests 03/22/19 03/22/19 03/22/19 07:14 11:48 16:21 POC Glucose (mg/dL) 224 H 254 H 236 H 03/23/19 03/23/19 07:35 11:40 POC Glucose (mg/dL) 225 H 290 H Microbiology and Other Data: Microbiology 03/21/19 16:52 Blood Culture - Preliminary Blood Venous No Growth Day 3 03/21/19 16:54 Blood Culture - Preliminary Blood Venous No Growth Day 3 03/21/19 12:09 Urine Culture - Final Urine Serratia Marcescens Raodieterlla Planticola Escherichia Coli 03/22/19 19:35 Urine Culture - Final Urine Assess/Plan/Problems-Billing Assessment: 68 year old woman with MS, here w/ encephalopathy, possible UTI - Patient Problems (1) History of ureter stent Current Visit: Yes Status: Acute Priority: Medium Code(s): PDZ4468 - SNOMED Code(s): 315150430 Comment: -Plan is to exchange stent and retrieve kidney stone Wednesday- will place NPO after midnight, start D5 1/2NS at night as well. (2) Acute delirium Current Visit: No Status: Acute Priority: High Code(s): R41.0 - DISORIENTATION, UNSPECIFIED SNOMED Code(s): 1228924 Comment: resolved. 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 (3) DM2 (diabetes mellitus, type 2) Current Visit: No Status: Chronic Priority: Medium Comment: - Not well controlled, increased Lantus 18 units- this admission - Holding home glipizide - Continue Lispro SS (4) Multiple sclerosis Current Visit: No Status: Chronic Priority: High Code(s): G35 - MULTIPLE SCLEROSIS SNOMED Code(s): 09889877 Comment: - Continue Baclofen and Tegretol (for muscle spasms, not seizures) (5) Neurogenic bladder Current Visit: No Status: Chronic Code(s): N31.9 - NEUROMUSCULAR DYSFUNCTION OF BLADDER, UNSPECIFIED SNOMED Code(s): 178033973 (6) UTI (urinary tract infection) Current Visit: No Status: Acute Priority: High Comment: initial Urine culture- kentrellitscooby organisim, now repeat urine culture: enterobacteria likely contaminant, cefepime changed to roecephin 03/24/19 c/w fluconazole ID following Status and Disposition: inpatient- for urological procedure planned for 03/27.
[2019-03-26] MEDS: CMCS: Anastrozole (NF) 1 MG TAB PO SCH (12:41)
[2019-03-26] MEDS: Insulin GLARGINE(*) 1 UNITS UNIT SUBCUT SCH (16:44)
[2019-03-26] MEDS: Enoxaparin(*) 40 MG/0.4 ML SYR SUBCUT SCH (16:45)
[2019-03-26] MEDS: cefTRIAXone(*) 1 GM in NS 0.9% 50 ML* 50 ML IVPB SCH (17:43)
[2019-03-26] MEDS: Cholecalciferol TAB* 1000 UNITS PO SCH (17:53)
[2019-03-26] MEDS: Atorvastatin* 40 MG TAB PO SCH (21:23)
[2019-03-27] MEDS ORDERED: D5W 1/2 NS 1000 ML BAG* 1,000 ML IV SCH (02:00)
[2019-03-27 07:03] LABS: ABS Basophils 0.1 10^3/ul (0-0.2); ABS Eosinophils 0.5 10^3/ul (0-0.6); ABS Lymphocytes 2.6 10^3/ul (1.0-4.8); ABS Neutrophils 6.2 10^3/ul (1.5-7.7); Eosinophil % 4.4 %; Hematocrit 34 % (35-47); Hemoglobin 11.6 g/dL (12.0-16.0); Lymphocyte % 24.9 %; Mean Corpuscular HGB Conc 35 g/dL (31-36); Mean Corpuscular Hemoglobin 31 pg (27-31); Mean Corpuscular Volume 89 fL (80-97); Mean Platelet Volume 8.3 fL (7.4-10.4); Platelet Count 262 10^3/uL (150-450); Red Blood Count 3.77 10^6 /uL (3.70-4.87); Red Cell Distribution Width 15 % (10-15); White Blood Count 10.4 10^3/uL (3.5-10.8)
[2019-03-27 07:23] LABS: BUN/Creatinine Ratio 26.7 (8-20); Calcium 9.5 mg/dL (8.6-10.3); EGFR Non-African American 76.8 (>60); Potassium 4.2 mmol/L (3.5-5.0)
[2019-03-27] MEDS: Insulin LISPRO* 1 UNITS UNIT SUBCUT SCH ×3 (07:48→22:15)
[2019-03-27] MEDS: CMCS: Olopatadine 0.1% OPHTH (NF) 1 DROP BTL BOTH EYES SCH ×2 (07:55→22:07)
[2019-03-27] MEDS: Metoprolol Succinate XL TAB* 100 MG PO SCH (07:56)
[2019-03-27] MEDS: Oxybutynin TAB* 5 MG PO SCH ×2 (07:56→21:40)
[2019-03-27] MEDS: Fluconazole 100 MG TAB* TAB PO SCH (07:56)
[2019-03-27] MEDS: carBAMazepine TAB(*) 200 MG PO SCH ×2 (07:57→22:06)
[2019-03-27] MEDS: Baclofen TAB* 20 MG PO SCH ×4 (07:57→22:07)
[2019-03-27] MEDS: Multivitamins/Minerals TAB PO SCH (07:57)
[2019-03-27] MEDS: Losartan TAB* 25 MG PO SCH (07:57)
[2019-03-27] MEDS: Silver Sulfadiazine 1%* 20 GM TOPICAL SCH ×2 (07:58→22:08)
[2019-03-27] MEDS: Nystatin CREAM* 15 GM TUBE TOPICAL SCH ×2 (07:58→22:18)
[2019-03-27] MEDS ORDERED: Docusate CAP* 100 MG PO PRN (09:30)
[2019-03-27] MEDS ORDERED: Morphine 4 MG/ML VIAL (1 ml) 4 MG/ML VIAL IV ONE (09:30)
--- NOTE | 2019-03-27 09:32 | PN ---
Subjective Date of Service: 03/27/19 Interval History: Seen and evaluated, trying to determine OR slot, will discuss with ID regarding timing of ureteral exchange and discuss with Dr. Eaton, currently NPO having left flank pain 06/08, reports it is different than her muscle pain that she gets with multiple sclerosis. Family History: Unchanged from Admission Social History: Unchanged from Admission Past Medical History: Unchanged from Admission Objective Active Medications: Acetaminophen (Tylenol Tab*) 650 mg PO Q6H PRN PRN Reason: pain/fever Last Admin: 03/24/19 09:08 Dose: 650 mg Hydrocodone Bitart/Acetaminophen ([place] 5-325 Tab*) 1 tab PO Q6H PRN PRN Reason: PAIN Last Admin: 03/26/19 07:34 Dose: 1 tab Anastrozole (Arimidex (Nf)) 1 mg PO 1200 [facility] Last Admin: 03/26/19 12:41 Dose: 1 mg Atorvastatin Calcium (Lipitor*) 40 mg PO BEDTIME [facility] Last Admin: 03/26/19 21:23 Dose: 40 mg Baclofen (Lioresal Tab*) 20 mg PO QID [facility] Last Admin: 03/27/19 07:57 Dose: 20 mg Carbamazepine (Tegretol Tab(*)) 200 mg PO BID [facility] Last Admin: 03/27/19 07:57 Dose: 200 mg Cholecalciferol (Vitamin D Tab*) 1,000 units PO QPM [facility] Last Admin: 03/26/19 17:53 Dose: 1,000 units Dextrose (Dextrose 50% Vial 50 Ml*) 25 ml IV PUSH .FOR FS < 60 - SS PRN PRN Reason: FS < 60 Enoxaparin Sodium (Lovenox(*)) 40 mg SUBCUT Q24H [facility] Last Admin: 03/26/19 16:45 Dose: 40 mg Fluconazole (Diflucan 100 Mg Tab*) 200 mg PO DAILY [facility] Last Admin: 03/27/19 07:56 Dose: 200 mg Ceftriaxone Sodium 1 gm/ (Sodium Chloride) 50 mls @ 100 mls/hr IVPB Q24H [facility] Last Admin: 03/26/19 17:43 Dose: 100 mls/hr Dextrose/Sodium Chloride (D5w 1/2 Ns 1000 Ml Bag*) 1,000 mls @ 75 mls/hr IV PER RATE [facility] Insulin Glargine (Lantus(*)) 18 units SUBCUT Q24H [facility] Last Admin: 03/26/19 16:44 Dose: 18 unit Insulin Human Lispro (Humalog*) 0 units SUBCUT AC [facility]; Protocol Last Admin: 03/27/19 07:48 Dose: Not Given Losartan Potassium (Cozaar Tab*) 100 mg PO DAILY [facility] Last Admin: 03/27/19 07:57 Dose: 100 mg Metoprolol Succinate (Toprol Xl Tab*) 100 mg PO DAILY WITH MEAL [facility] Last Admin: 03/27/19 07:56 Dose: 100 mg Multivitamins/Minerals (Theragran/Minerals Tab*) 1 tab PO QAM [facility] Last Admin: 03/27/19 07:57 Dose: 1 tab Nystatin (Nystatin Cream*) 1 applic TOPICAL BID [facility] Last Admin: 03/27/19 07:58 Dose: 1 applic Olopatadine HCl (Patanol 0.1% Ophth (Nf)) 1 drop BOTH EYES BID [facility]; Protocol Last Admin: 03/27/19 07:55 Dose: 1 drop Oxybutynin Chloride (Ditropan Tab*) 5 mg PO BID [facility] Last Admin: 03/27/19 07:56 Dose: 5 mg Polyethylene Glycol/Electrolytes (Miralax*) 17 gm PO DAILY PRN PRN Reason: CONSTIPATION Silver Sulfadiazine (Silvadine 1%*) 1 applic TOPICAL BID [facility] Last Admin: 03/27/19 07:58 Dose: 1 ea Vital Signs - 8 hr 03/27/19 03/27/19 03:11 07:15 Temperature 97.2 F 98.3 F Pulse Rate 79 75 Respiratory 18 16 Rate Blood Pressure 114/71 133/67 (mmHg) O2 Sat by Pulse 94 97 Oximetry Oxygen Devices in Use Now: None Appearance: Lying in bed, not in distress Eyes: PERRLA Respiratory: Clear to Auscultation Cardiovascular: NL Sounds; No Murmurs; No JVD, RRR Abdominal: No Hepatosplenomegaly, - - Tender left flank region Neurological: Alert and Oriented x 3 Result Diagrams: 03/27/19 06:31 03/27/19 06:31 Additional Lab and Data: Laboratory Tests 03/22/19 03/22/19 03/22/19 07:14 11:48 16:21 POC Glucose (mg/dL) 224 H 254 H 236 H 03/23/19 03/23/19 07:35 11:40 POC Glucose (mg/dL) 225 H 290 H Microbiology and Other Data: Microbiology 03/21/19 16:52 Blood Culture - Preliminary Blood Venous No Growth Day 3 03/21/19 16:54 Blood Culture - Preliminary Blood Venous No Growth Day 3 03/21/19 12:09 Urine Culture - Final Urine Serratia Marcescens Raoutella Pl[place]ola Escherichia Coli 03/22/19 19:35 Urine Culture - Final Urine Assess/Plan/Problems-Billing Assessment: 68 year old woman with MS, here w/ encephalopathy, possible UTI - Patient Problems (1) History of ureter stent Current Visit: Yes Status: Acute Priority: Medium Code(s): MAM2120 - SNOMED Code(s): 859600293 Comment: -Plan is to exchange stent and retrieve kidney stone today, trying to determine the timing, for now continue with NPO, D5 1/2NS (2) Acute delirium Current Visit: No Status: Acute Priority: High Code(s): R41.0 - DISORIENTATION, UNSPECIFIED SNOMED Code(s): 2660335 Comment: resolved. 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 (3) DM2 (diabetes mellitus, type 2) Current Visit: No Status: Chronic Priority: Medium Comment: - Not well controlled, increased Lantus 18 units- this admission - Holding home glipizide - Continue Lispro SS (4) Multiple sclerosis Current Visit: No Status: Chronic Priority: High Code(s): G35 - MULTIPLE SCLEROSIS SNOMED Code(s): 46828216 Comment: - Continue Baclofen and Tegretol (for muscle spasms, not seizures) (5) Neurogenic bladder Current Visit: No Status: Chronic Code(s): N31.9 - NEUROMUSCULAR DYSFUNCTION OF BLADDER, UNSPECIFIED SNOMED Code(s): 669408107 (6) UTI (urinary tract infection) Current Visit: No Status: Acute Priority: High Comment: initial Urine culture- mulitple organisim, now repeat urine culture: enterobacteria likely contaminant, cefepime changed to roecephin 03/24/19 c/w fluconazole ID following Status and Disposition: inpatient- for urological procedure planned for 03/27.
--- NOTE | 2019-03-27 09:46 | PN ---
Progress Note - Progress Note Date of Service: 03/27/19 SOAP: Subjective: CC: Encephalopathy and UTI HPI: Ms. Em is a 68 yo female with PMH significant for MS with neurogenic bladder, HTN, HLD, DM2, seizure disorder, nephrolithiasis, breast cancer, and recurrent UTIs. Denies fever, chills, nausea, vomiting, or diarrhea. Is slowly starting to feel better and is less lethargic. Objective: Vital Signs - 8 hr 03/27/19 03/27/19 03:11 07:15 Temperature 97.2 F 98.3 F Pulse Rate 79 75 Respiratory 18 16 Rate Blood Pressure 114/71 133/67 (mmHg) O2 Sat by Pulse 94 97 Oximetry Physical Exam: General: NAD, sitting up in bed Neurological: Alert and Oriented x3 HEENT: Moist MM, no thrush Cardiovascular: Heart rate regular, no murmur Respiratory: Lung sounds clear bilateral Abdominal: Bowel sounds present; ABD soft, non tender and non distended Skin: No rash Laboratory Results - last 24 hr 03/27/19 03/27/19 03/27/19 06:31 06:31 07:15 WBC 10.4 RBC 3.77 Hgb 11.6 L Hct 34 L MCV 89 MCH 31 MCHC 35 RDW 15 Plt Count 262 MPV 8.3 Neut % (Auto) 60.3 Lymph % (Auto) 24.9 [place] % (Auto) 9.8 Eos % (Auto) 4.4 Baso % (Auto) 0.6 Absolute Neuts (auto) 6.2 Absolute Lymphs (auto) 2.6 Absolute Monos (auto) 1.0 H Absolute Eos (auto) 0.5 Absolute Basos (auto) 0.1 Absolute Nucleated RBC 0.0 Nucleated RBC % 0.0 Sodium 135 Potassium 4.2 Chloride 99 L Carbon Dioxide 25 Anion Gap 11 BUN 20 Creatinine 0.75 Est GFR ( Amer) 93.0 Est GFR (Non-Af Amer) 76.8 BUN/Creatinine Ratio 26.7 H Glucose 192 H POC Glucose (mg/dL) 181 H Calcium 9.5 Microbiology 03/21/19 16:52 Blood Culture - Final Blood Venous No Growth Day 5 03/21/19 16:54 Blood Culture - Final Blood Venous No Growth Day 03/21/19 12:09 Urine Culture - Final Urine Serratia Marcescens Raoutella Planticola Escherichia Coli 03/22/19 19:35 Urine Culture - Final Urine Assessment: 1. UTI in the setting of self catherization at home and urinary hardware. Urine culture with serratia >100K, Raoutella > 100K and E coli. Afebrile and no leukocytosis. Blood cultures with no growth day 5. 2. Encephalopathy. Suspect secondary to #1. Continues to slowly improve. 3. Nephrolithiasis without hydronephrosis. Ureteral stent in place. Urology following along and planning a stent exchange later today. 4. MS with neurogenic bladder. Straight caths at home. Indwelling catheter placed on admission Plan: Continue ceftriaxone, day 7. Ok for urological surgery from an ID standpoint.
[2019-03-27] MEDS: CMCS: Anastrozole (NF) 1 MG TAB PO SCH (12:43)
[2019-03-27] MEDS: Insulin GLARGINE(*) 1 UNITS UNIT SUBCUT SCH (15:09)
[2019-03-27] MEDS ORDERED: Buffered Lidocaine 1% SYRIN* 1 ML/SYRINGE INTRADERM ONE (15:48)
[2019-03-27] MEDS ORDERED: fentaNYL* 50 MCG/ML 2 ML VIAL (100 MCG VIAL) ONE ×3 (15:55→19:14)
[2019-03-27] MEDS ORDERED: Lidocaine 2% PF * 5 ML VIAL ONE (16:00)
[2019-03-27] MEDS ORDERED: Propofol* 10 MG/ML 20 ML BTL ONE (16:00)
[2019-03-27] MEDS: Lactated Ringers 1000 ML Bag* 1,000 ML IV SCH (16:02)
[2019-03-27] MEDS ORDERED: Iohexol 180 (CONTRAST) 10 ML SDV IV ONE (16:29)
[2019-03-27] MEDS: cefTRIAXone(*) 1 GM in NS 0.9% 50 ML* 50 ML IVPB SCH (17:10)
[2019-03-27] MEDS ORDERED: Metoclopramide IV* 5 MG/ML 2 ML VIAL ONE (17:48)
[2019-03-27] MEDS ORDERED: Ondansetron INJ* 2 MG/ML VIAL ONE (17:55)
[2019-03-27] MEDS ORDERED: DiMENhydriNATE IV* 50 MG/ML VIAL IV PUSH PRN (18:01)
[2019-03-27] MEDS ORDERED: Naloxone* 0.4 MG/ML 1 ML VIAL IV PRN (18:01)
[2019-03-27] MEDS: fentaNYL* 50 MCG/ML 2 ML VIAL (100 MCG VIAL) IV PRN ×5 (18:37→19:15)
[2019-03-27] MEDS ORDERED: HYDROcodone/ACETAMIN 5-325 MG* 1 TAB ONE (19:34)
[2019-03-27] MEDS: HYDROcodone/ACETAMIN 5-325 MG* 1 TAB PO PRN (19:35)
[2019-03-27] MEDS: Cholecalciferol TAB* 1000 UNITS PO SCH (22:04)
[2019-03-27] MEDS: Atorvastatin* 40 MG TAB PO SCH (22:05)
[2019-03-27] MEDS: Enoxaparin(*) 40 MG/0.4 ML SYR SUBCUT SCH (22:17)
--- NOTE | 2019-03-27 22:26 | OP ---
CC: Dr. Arcenio Olivares; Dr. Juan Brewer * DATE OF OPERATION: 03/27/19 - ROOM #418 DATE OF : 52 SURGEON: Ludin Eaton MD ANESTHESIOLOGIST: Dr. Mandel. ANESTHESIA: General. PRE-OP DIAGNOSES: 1. History of left hydronephrosis. 2. Calculus, left ureter. POST-OP DIAGNOSIS: Normal left ureter with no calculus seen. OPERATIVE PROCEDURE: Cystoscopy, left retrograde pyelogram, left ureteroscopy and pyeloscopy, and left stent replacement. COMPLICATIONS: None. STENT USED: A 7-Swiss stent, left ureter. OPERATIVE FINDINGS: 1. No evidence of calculus seen in the left distal, mid or proximal ureter or left renal pelvis. 2. Normal retrograde pyelogram. POSTOPERATIVE CONDITION: Stable. INDICATIONS: Lucretia Em is a 69-year-old lady who has advanced multiple sclerosis and a neurogenic bladder and a history of recurrent urinary tract infections. She had undergone urgent left stent insertion at [facility] for what was described as a small obstructing calculus in the left ureter. DESCRIPTION OF PROCEDURE: After induction of general anesthesia, the patient was placed in dorsal lithotomy position. Sequential compression devices were in place and functioning. Initial cystoscopy (after removal of the previously placed Mcwilliams catheter) revealed a normal appearing bladder with some mild inflammatory response expected from the indwelling catheter. The previously placed stent was seen and was removed intact without difficulty. A 6-Swiss semi -rigid ureteroscope was introduced and advanced under direct vision. The entire left distal, mid and proximal ureter was visualized and I did not see any calculus within the lumen of the left ureter. The ureteroscope was advanced into the renal pelvis. I could see some evidence of undermining of the mucosa in the left renal pelvis, which may have been related to the previously placed stent, but could not visualize any calculus. The ureteroscope was carefully withdrawn under direct vision and a new 7-Swiss stent was introduced and positioned under fluoroscopy with good proximal and distal positioning obtained. The patient tolerated the procedure satisfactorily and was transferred back to the recovery area in stable condition. [id number]/[facility] #: [id number] [facility]
--- NOTE | 2019-03-27 23:59 | DS ---
CC: Dr. Juan Brewer; Dr. Eaton; Dr. Nur; Dr. Olivares * PRELIMINARY DISCHARGE SUMMARY: DATE OF ADMISSION: 03/21/19 DATE OF DISCHARGE: pending discharge PRIMARY CARE PROVIDER: Dr. Olivares. REASON FOR ADMISSION: Lethargy and weakness. DISCHARGE DIAGNOSES: 1. Urinary tract infection. 2. Multiple sclerosis. 3. Hypertension. 4. Hyperlipidemia. 5. Type 2 diabetes. 6. Seizure disorder. 7. History of kidney stone with a left ureteral stent placed in February of 2019 at [place], [place]. 8. Encephalopathy secondary to urinary tract infection/dehydration, resolved. HOSPITAL COURSE: This is a 69-year-old female with past medical history of recurrent UTIs, nephrolithiasis, who presented to the emergency room because of weakness and lethargy. On 03/04/19, the patient had a CT of the abdomen, which showed 3-mm stone at the left UVJ with mild obstruction. The patient was sent to [facility] for stent placement due to no Urology coverage here. She followed up with Dr. Juan Brewer as an outpatient and was found to have urine culture grow of Kim. The patient was started on fluconazole 400 mg daily, which was then changed to 200 mg due to interaction with carbamazepine. In our emergency room, the patient was seen and evaluated, was found to have lethargy and weakness. The patient underwent CT of the head, which was without any acute abnormality. The patient also had a chest x-ray, which was within normal limits. The patient had an abnormal urinalysis, which shows 2+ blood with 3+ leuk esterase and 2+ bacteria. With the patient's history of having recurrent urinary tract infections, the patient was admitted to the hospital, continued on fluconazole and started on cefepime. Dr. Brewer was consulted and Dr. Eaton was consulted. The patient's other home medications were continued. For the patient having diabetes, her home glipizide was discontinued and started on insulin sliding scale as well as Lantus was added later on and the patient was started on diabetic diet and started on IV fluids. Subsequently, the patient's urine culture grew multiple organisms including Serratia marcescens, =, as well as E. coli. There was concern that may be this is a contamination and a repeat urine culture was done; however, that urine culture came back with enterobacteriae and that was done after several doses of antibiotics. The patient was followed by Dr. Juan Brewer, the patient was continued on cefepime and fluconazole and was eventually transitioned to Rocephin and the fluconazole regimen. Plan was made to change out the patient' s left ureteral stent. Due to the urinary tract infection, this was postponed to 03/27/19, this afternoon the patient underwent urological procedure. The patient had a stent that was changed. Please look up the patient's procedure note regarding that. The patient also had a retrograde pyelogram. There was no evidence of a kidney stone based on my conversation with Dr. Eaton. Official operative report is still pending. Hospital course was complicated by the patient complaining of eye irritation and was started on eye drops. Olopatadine eye drops 1 drop both eyes b.i.d. for comfort. DISPOSITION: Home, is her primary caregiver and does not want any extra support at home. DISCHARGE CONDITION: Stable. ADDITIONAL DIAGNOSES: Include: 1. Progressive multiple sclerosis. 2. Possible urinary tract infection with left ureteral stent. Discharge medication will not be done at this time because this is a preliminary discharge summary, I will sign out to my colleague to discuss the case with Dr. Brewer to determine the discharge medications regarding the antibiotics. [id number]/[facility] #: [id number] [facility]
[2019-03-28] MEDS: Lactated Ringers 1000 ML Bag* 1,000 ML IV SCH ×3 (04:43→22:42)
[2019-03-28] MEDS: Insulin LISPRO* 1 UNITS UNIT SUBCUT SCH ×3 (09:35→17:30)
[2019-03-28] MEDS: Metoprolol Succinate XL TAB* 100 MG PO SCH (09:38)
[2019-03-28] MEDS: Oxybutynin TAB* 5 MG PO SCH ×2 (09:38→21:02)
[2019-03-28] MEDS: Baclofen TAB* 20 MG PO SCH ×4 (09:39→21:02)
[2019-03-28] MEDS: carBAMazepine TAB(*) 200 MG PO SCH ×2 (09:39→21:02)
[2019-03-28] MEDS: Multivitamins/Minerals TAB PO SCH (09:39)
[2019-03-28] MEDS: Fluconazole 100 MG TAB* TAB PO SCH (09:39)
[2019-03-28] MEDS: CMCS: Olopatadine 0.1% OPHTH (NF) 1 DROP BTL BOTH EYES SCH ×2 (09:40→21:01)
[2019-03-28] MEDS: Nystatin CREAM* 15 GM TUBE TOPICAL SCH ×2 (09:40→21:06)
[2019-03-28] MEDS: Losartan TAB* 25 MG PO SCH (09:46)
[2019-03-28] MEDS: Silver Sulfadiazine 1%* 20 GM TOPICAL SCH ×2 (09:49→23:03)
[2019-03-28 11:58] LABS: Urine Appearance Cloudy; Urine Bacteria Absent (Absent); Urine Bilirubin Negative (Negative); Urine Blood 3+ (Negative); Urine Color Yellow; Urine Glucose Negative (Negative); Urine Ketones Negative (Negative); Urine Nitrite Negative (Negative); Urine Protein Negative (Negative); Urine Red Blood Cell 3+(>10/hpf) (Absent); Urine Specific Gravity 1.006 (1.010-1.030); Urine Squamous Epithelial Cell Present (Absent); Urine Urobilinogen Negative (Negative); Urine White Blood Cell 3+(>20/hpf) (Absent)
[2019-03-28] MEDS ORDERED: Bisacodyl SUPP* 10 MG SUPP PR ONE (12:45)
[2019-03-28] MEDS: CMCS: Anastrozole (NF) 1 MG TAB PO SCH (13:07)
[2019-03-28] MEDS: Insulin GLARGINE(*) 1 UNITS UNIT SUBCUT SCH (15:13)
--- NOTE | 2019-03-28 17:04 | CONSULT ---
Subjective Date of Service: 03/28/19 Interval History: Ms. Em is a 68 yo female with PMH significant for DM2, breast CA, MS with neurogenic bladder, recurrent UTI, and stage 2 pressure injury to her buttocks; who presented to the emergency room for lethargy. She was found to have a UTI and underwent ureteral stent exchange during her hospitalization. She presented to the hospital with a stage 2 pressure injury to her buttocks. Mr. Em states that he has been using a Silvercell dressing and SSD cream to her pressure injury at home. Patient seen and examined at bedside. Family History: Unchanged from Admission Social History: Unchanged from Admission Past Medical History: Unchanged from Admission Review of Systems - Measurements Intake and Output: Intake and Output Last 24 Hours 03/26/19 03/27/19 03/28/19 03/29/19 06:59 06:59 06:59 06:59 Intake Total 970 1890 4360 2886 Output Total 775 1660 2850 1400 Balance 455 819 7925 1486 Intake: IV Fluids 50 3600 2166 ABX - CEFEPIME 50 50 LR 2650 2166 NS (0.9%) 900 IVPB 10 ABX - CEFEPIME 10 Oral 970 1830 760 720 Output: Urine 775 950 Mcwilliams 710 2850 1400 Other: Estimated Void Large Date of Last Bowel unknown Movement # Bowel Movements 0 0 Estimated Stool Amount Small # Voids 1 - Review of Systems Constitutional Symptoms: Negative: Fever, Other - Chills Dermatology: Positive: Other - Chronic pressure injury to buttocks Endocrinology: Positive: Diabetes Mellitus Objective Active Medications: Acetaminophen (Tylenol Tab*) 650 mg PO Q6H PRN Reason: pain/fever Hydrocodone Bitart/Acetaminophen (Custer 5-325 Tab*) 1 tab PO Q6H PRN Reason: PAIN Anastrozole (Arimidex (Nf)) 1 mg PO 1200 [facility] Atorvastatin Calcium (Lipitor*) 40 mg PO BEDTIME [facility] Baclofen (Lioresal Tab*) 20 mg PO QID [facility] Carbamazepine (Tegretol Tab(*)) 200 mg PO BID [facility] Cholecalciferol (Vitamin D Tab*) 1,000 units PO QPM [facility] Dextrose (Dextrose 50% Vial 50 Ml*) 25 ml IV PUSH .FOR FS < 60 - SS PRN Reason : FS < 60 Docusate Sodium (Colace Cap*) 100 mg PO BID PRN Reason: CONSTIPATION Enoxaparin Sodium (Lovenox(*)) 40 mg SUBCUT Q24H [facility] Fluconazole (Diflucan 100 Mg Tab*) 200 mg PO DAILY [facility] Ceftriaxone Sodium 1 gm/ (Sodium Chloride) 50 mls @ 100 mls/hr IVPB Q24H [facility] Lactated Ringer's (Lactated Ringers 1000 Ml Bag*) 1,000 mls @ 125 mls/hr IV PER RATE [facility] Insulin Glargine (Lantus(*)) 18 units SUBCUT Q24H [facility] Insulin Human Lispro (Humalog*) 0 units SUBCUT AC [facility]; Protocol Losartan Potassium (Cozaar Tab*) 100 mg PO DAILY [facility] Metoprolol Succinate (Toprol Xl Tab*) 100 mg PO DAILY WITH MEAL [facility] Multivitamins/Minerals (Theragran/Minerals Tab*) 1 tab PO QAM [facility] Nystatin (Nystatin Cream*) 1 applic TOPICAL BID [facility] Olopatadine HCl (Patanol 0.1% Ophth (Nf)) 1 drop BOTH EYES BID [facility]; Protocol Oxybutynin Chloride (Ditropan Tab*) 5 mg PO BID [facility] Polyethylene Glycol/Electrolytes (Miralax*) 17 gm PO DAILY PRN Reason: CONSTIPATION Silver Sulfadiazine (Silvadine 1%*) 1 applic TOPICAL BID [facility] Vital Signs - 8 hr 03/28/19 03/28/19 03/28/19 09:45 11:21 15:30 Temperature 98.7 F 98.3 F Pulse Rate 88 90 Respiratory 16 18 16 Rate Blood Pressure 117/69 138/71 (mmHg) O2 Sat by Pulse 93 90 Oximetry Oxygen Devices in Use Now: None Appearance: NAD, laying in bed Ears/Nose/Mouth/Throat: Mucous Membranes Moist Respiratory: Symmetrical Chest Expansion and Respiratory Effort Skin: - - See skin note below Neurological: - - Alert and Oriented to person and place Nutrition: Taking PO's Result Diagrams: 03/27/19 06:31 03/27/19 06:31 Skin Deviation Note - Skin Deviation Findings Buttocks - There is skin breakdown to bilateral buttocks. The right buttocks with a wound that measures 0.6 cm x 1 cm x 0.3 cm. The wound bed is red granulation tissue. There is white scar tissue surrounding the wound. There is no drainage noted. The surrounding skin is intact, with a small area of dark purple tissue. The left buttocks with several superficial open areas. The largest area measures 3 cm x 2 cm x 0.2 cm. The wound base is red granulation tissue. The surrounding skin with white scar tissue and superficial open skin. The surrounding skin with erythema and blanchable. No drainage noted. Assessment/Plan: Ms. Em is a 68 yo female with PMH significant for DM2, breast CA, MS with neurogenic bladder, recurrent UTI, and stage 2 pressure injury to her buttocks; who presented to the emergency room for lethargy. She was found to have a UTI and underwent ureteral stent exchange during her hospitalization. She presented to the hospital with a stage 2 pressure injury to her buttocks. 1. Stage 2 pressure injury to the buttocks. This has been an ongoing issue for the patient, but improved since October 2018. Reinforced with Mr. Em that scarred tissue is fragile and easily susceptible to breakdown. Continue silvasorb and SSD (on the thick areas of scar tissue) dressing, change dressing. Use caution if using border foam gauze on the buttocks as this may keep the skin to moist and contribute to macerated skin. Frequent turning and repositioning, and incontinence care as needed. Use a lifting device to assist with moving in bed to decrease shearing injury. Consider referral back to wound clinic at discharge. Recommend checking a pre-albumin, to assist with further evaluation of her nutritional status. 2. MS with neurogenic bladder and recurrent UTIs. 3. Diabetes Mellitus, type 2. Maintain good glycemic control to help with wound healing. 4. Diet. Consistent Carbohydrate diet. 5. Code Status. Full Code Status. 6. Disposition. Disposition per primary medicine team. TIME SPENT: Time for this wound consult was 25 minutes, and 15 minutes was spent with the patient and her discussing past medical history; assessing, measuring and photographing the wounds. Wound Problem/Plan Is Patient a Wound Clinic Patient: Yes - In the past, but not recently Attending: Tamar Ramsey
[2019-03-28] MEDS: cefTRIAXone(*) 1 GM in NS 0.9% 50 ML* 50 ML IVPB SCH (17:24)
[2019-03-28] MEDS: Enoxaparin(*) 40 MG/0.4 ML SYR SUBCUT SCH (17:29)
[2019-03-28] MEDS: Cholecalciferol TAB* 1000 UNITS PO SCH (17:31)
--- NOTE | 2019-03-28 17:33 | PN ---
Subjective Date of Service: 03/28/19 Interval History: patient seen with at bedside. no fever. no chills. Past Medical History: Unchanged from Admission Objective Active Medications: Acetaminophen (Tylenol Tab*) 650 mg PO Q6H PRN PRN Reason: pain/fever Last Admin: 03/24/19 09:08 Dose: 650 mg Hydrocodone Bitart/Acetaminophen ([place] 5-325 Tab*) 1 tab PO Q6H PRN PRN Reason: PAIN Last Admin: 03/27/19 19:35 Dose: 1 tab Anastrozole (Arimidex (Nf)) 1 mg PO 1200 [facility] Last Admin: 03/28/19 13:07 Dose: 1 mg Atorvastatin Calcium (Lipitor*) 40 mg PO BEDTIME [facility] Last Admin: 03/27/19 22:05 Dose: 40 mg Baclofen (Lioresal Tab*) 20 mg PO QID [facility] Last Admin: 03/28/19 13:07 Dose: 20 mg Carbamazepine (Tegretol Tab(*)) 200 mg PO BID [facility] Last Admin: 03/28/19 09:39 Dose: 200 mg Cholecalciferol (Vitamin D Tab*) 1,000 units PO QPM [facility] Last Admin: 03/27/19 22:04 Dose: 1,000 units Dextrose (Dextrose 50% Vial 50 Ml*) 25 ml IV PUSH .FOR FS < 60 - SS PRN PRN Reason: FS < 60 Docusate Sodium (Colace Cap*) 100 mg PO BID PRN PRN Reason: CONSTIPATION Enoxaparin Sodium (Lovenox(*)) 40 mg SUBCUT Q24H [facility] Last Admin: 03/27/19 22:17 Dose: 40 mg Fluconazole (Diflucan 100 Mg Tab*) 200 mg PO DAILY [facility] Last Admin: 03/28/19 09:39 Dose: 200 mg Ceftriaxone Sodium 1 gm/ (Sodium Chloride) 50 mls @ 100 mls/hr IVPB Q24H [facility] Last Admin: 03/27/19 17:10 Dose: 100 mls/hr Lactated Ringer's (Lactated Ringers 1000 Ml Bag*) 1,000 mls @ 125 mls/hr IV PER RATE [facility] Last Admin: 03/28/19 13:00 Dose: 125 mls/hr Insulin Glargine (Lantus(*)) 18 units SUBCUT Q24H [facility] Last Admin: 03/28/19 15:13 Dose: 18 unit Insulin Human Lispro (Humalog*) 0 units SUBCUT AC [facility]; Protocol Last Admin: 03/28/19 13:05 Dose: 4 unit Losartan Potassium (Cozaar Tab*) 100 mg PO DAILY [facility] Last Admin: 03/28/19 09:46 Dose: 100 mg Metoprolol Succinate (Toprol Xl Tab*) 100 mg PO DAILY WITH MEAL [facility] Last Admin: 03/28/19 09:38 Dose: 100 mg Multivitamins/Minerals (Theragran/Minerals Tab*) 1 tab PO QAM [facility] Last Admin: 03/28/19 09:39 Dose: 1 tab Nystatin (Nystatin Cream*) 1 applic TOPICAL BID [facility] Last Admin: 03/28/19 09:40 Dose: 1 applic Olopatadine HCl (Patanol 0.1% Ophth (Nf)) 1 drop BOTH EYES BID [facility]; Protocol Last Admin: 03/28/19 09:40 Dose: 1 drop Oxybutynin Chloride (Ditropan Tab*) 5 mg PO BID [facility] Last Admin: 03/28/19 09:38 Dose: 5 mg Polyethylene Glycol/Electrolytes (Miralax*) 17 gm PO DAILY PRN PRN Reason: CONSTIPATION Silver Sulfadiazine (Silvadine 1%*) 1 applic TOPICAL BID [facility] Last Admin: 03/28/19 09:49 Dose: 1 ea Vital Signs - 8 hr 03/28/19 03/28/19 03/28/19 09:45 11:21 15:30 Temperature 98.7 F 98.3 F Pulse Rate 88 90 Respiratory 16 18 16 Rate Blood Pressure 117/69 138/71 (mmHg) O2 Sat by Pulse 93 90 Oximetry Oxygen Devices in Use Now: None Appearance: awake, alert. no fever or chills. Eyes: No Scleral Icterus Ears/Nose/Mouth/Throat: Mucous Membranes Moist Neck: NL Appearance and Movements; NL JVP, Trachea Midline Respiratory: Symmetrical Chest Expansion and Respiratory Effort, Clear to Auscultation Cardiovascular: NL Sounds; No Murmurs; No JVD Abdominal: NL Sounds; No Tenderness; No Distention Extremities: - - no edema. raynolds phenomena Result Diagrams: 03/27/19 06:31 03/27/19 06:31 Additional Lab and Data: Laboratory Tests 03/22/19 03/22/19 03/22/19 07:14 11:48 16:21 POC Glucose (mg/dL) 224 H 254 H 236 H 03/23/19 03/23/19 07:35 11:40 POC Glucose (mg/dL) 225 H 290 H Microbiology and Other Data: Microbiology 03/21/19 16:52 Blood Culture - Preliminary Blood Venous No Growth Day 3 03/21/19 16:54 Blood Culture - Preliminary Blood Venous No Growth Day 3 03/21/19 12:09 Urine Culture - Final Urine Serratia Marcescens Raoutella Planticola Escherichia Coli 03/22/19 19:35 Urine Culture - Final Urine Assess/Plan/Problems-Billing Assessment: 68 year old woman with MS, here w/ encephalopathy, possible UTI - Patient Problems (1) UTI (urinary tract infection) Current Visit: No Status: Acute Priority: High Comment: - enterobacteria - s/p left Intra-uretral stent exchange - Cefepime changed to roecephin 03/24/19 and will discuss with ID if she does require prolonged course 14 days or should we discontinue it, and when? - currently on fluconazole as well. Will need to follow up with ID (2) History of ureter stent Current Visit: Yes Status: Acute Priority: Medium Code(s): MSO7957 - SNOMED Code(s): 564367002 Comment: - s/p exchange stent on 03/27/19 (3) Constipation Current Visit: No Status: Acute Priority: Medium Code(s): K59.00 - CONSTIPATION, UNSPECIFIED SNOMED Code(s): 68082434 Comment: - Will give dulcoloax suppository today - Change miralax and colare to daily scheduled and not PRN (4) Multiple sclerosis Current Visit: No Status: Chronic Priority: High Code(s): G35 - MULTIPLE SCLEROSIS SNOMED Code(s): 96672229 Comment: - Continue Baclofen and Tegretol (for muscle spasms, not seizures) (5) Neurogenic bladder Current Visit: No Status: Chronic Code(s): N31.9 - NEUROMUSCULAR DYSFUNCTION OF BLADDER, UNSPECIFIED SNOMED Code(s): 422162214 Status and Disposition: inpatient- for urological procedure planned for 03/27.
[2019-03-28] MEDS: Docusate CAP* 100 MG PO SCH (21:02)
[2019-03-28] MEDS: Atorvastatin* 40 MG TAB PO SCH (21:02)
[2019-03-29] MEDS: Lactated Ringers 1000 ML Bag* 1,000 ML IV SCH (05:20)
[2019-03-29] MEDS ORDERED: Polyethylene Glycol 3350* 17 GM PACKET PO SCH (09:00)
[2019-03-29] MEDS: Insulin LISPRO* 1 UNITS UNIT SUBCUT SCH ×2 (09:48→13:03)
[2019-03-29] MEDS: CMCS: Olopatadine 0.1% OPHTH (NF) 1 DROP BTL BOTH EYES SCH (09:49)
[2019-03-29] MEDS: Nystatin CREAM* 15 GM TUBE TOPICAL SCH (09:51)
[2019-03-29] MEDS: Losartan TAB* 25 MG PO SCH (09:51)
[2019-03-29] MEDS: carBAMazepine TAB(*) 200 MG PO SCH (09:52)
[2019-03-29] MEDS: Docusate CAP* 100 MG PO SCH (09:52)
[2019-03-29] MEDS: Multivitamins/Minerals TAB PO SCH (09:52)
[2019-03-29] MEDS: Fluconazole 100 MG TAB* TAB PO SCH (09:52)
[2019-03-29] MEDS: Metoprolol Succinate XL TAB* 100 MG PO SCH (09:53)
[2019-03-29] MEDS: Oxybutynin TAB* 5 MG PO SCH (09:53)
[2019-03-29] MEDS: Baclofen TAB* 20 MG PO SCH ×2 (09:53→13:04)
[2019-03-29] MEDS: Silver Sulfadiazine 1%* 20 GM TOPICAL SCH (09:56)
--- NOTE | 2019-03-29 11:08 | PN ---
Progress Note - Progress Note Date of Service: 03/29/19 SOAP: Subjective: CC: Encephalopathy in setting of UTI HPI: Ms. Em is a 68 yo female with PMH significant for MS with neurogenic bladder, HTN, HLD, DM2, seizure disorder, nephrolithiasis, breast cancer, and recurrent UTIs. Denies fever, chills, nausea, vomiting, or diarrhea. Reports that she is feeing better and the lethargy continues to improve. Objective: Vital Signs - 8 hr 03/29/19 03/29/19 03:15 08:08 Temperature 97.1 F 98.1 F Pulse Rate 87 85 Respiratory 19 17 Rate Blood Pressure 122/72 134/69 (mmHg) O2 Sat by Pulse 94 92 Oximetry Physical Exam: General: NAD, laying in bed Neurological: Alert and Oriented x3 HEENT: Moist MM, no thrush Cardiovascular: Heart rate regular Respiratory: Lung sounds clear bilateral Abdominal: Bowel sounds present; ABD soft, non tender and non distended. Urinary catheter with clear yellow urine Skin: No rash Laboratory Last Values WBC 10.4 10^3/uL (3.5-10.8) 03/27/19 06:31 RBC 3.77 10^6 /uL (3.70-4.87) 03/27/19 06:31 Hgb 11.6 g/dL (12.0-16.0) L 03/27/19 06:31 Hct 34 % (35-47) L 03/27/19 06:31 MCV 89 fL (80-97) 03/27/19 06:31 MCH 31 pg (27-31) 03/27/19 06:31 MCHC 35 g/dL (31-36) 03/27/19 06:31 RDW 15 % (10-15) 03/27/19 06:31 Plt Count 262 10^3/uL (150-450) 03/27/19 06:31 MPV 8.3 fL (7.4-10.4) 03/27/19 06:31 Neut % (Auto) 60.3 % 03/27/19 06:31 Lymph % (Auto) 24.9 % 03/27/19 06:31 [place] % (Auto) 9.8 % 03/27/19 06:31 Eos % (Auto) 4.4 % 03/27/19 06:31 Baso % (Auto) 0.6 % 03/27/19 06:31 Absolute Neuts (auto) 6.2 10^3/ul (1.5-7.7) 03/27/19 06:31 Absolute Lymphs (auto) 2.6 10^3/ul (1.0-4.8) 03/27/19 06:31 Absolute Monos (auto) 1.0 10^3/ul (0-0.8) H 03/27/19 06:31 Absolute Eos (auto) 0.5 10^3/ul (0-0.6) 03/27/19 06:31 Absolute Basos (auto) 0.1 10^3/ul (0-0.2) 03/27/19 06:31 Absolute Nucleated RBC 0.0 10^3/ul 03/27/19 06:31 Nucleated RBC % 0.0 03/27/19 06:31 Sodium 135 mmol/L (135-145) 03/27/19 06:31 Potassium 4.2 mmol/L (3.5-5.0) 03/27/19 06:31 Chloride 99 mmol/L (101-111) L 03/27/19 06:31 Carbon Dioxide 25 mmol/L (22-32) 03/27/19 06:31 Anion Gap 11 mmol/L (2-11) 03/27/19 06:31 BUN 20 mg/dL (6-24) 03/27/19 06:31 Creatinine 0.75 mg/dL (0.51-0.95) 03/27/19 06:31 Est GFR ( Amer) 93.0 (>60) 03/27/19 06:31 Est GFR (Non-Af Amer) 76.8 (>60) 03/27/19 06:31 BUN/Creatinine Ratio 26.7 (8-20) H 03/27/19 06:31 Glucose 192 mg/dL (70-100) H 03/27/19 06:31 POC Glucose (mg/dL) 167 mg/dL (70-100) H 03/29/19 08:14 Lactic Acid 1.4 mmol/L (0.5-2.0) 03/21/19 11:56 Calcium 9.5 mg/dL (8.6-10.3) 03/27/19 06:31 Total Bilirubin 0.30 mg/dL (0.2-1.0) 03/21/19 11:56 AST 19 U/L (13-39) 03/21/19 11:56 ALT 21 U/L (7-52) 03/21/19 11:56 Alkaline Phosphatase 72 U/L (34-104) 03/21/19 11:56 Troponin I 0.01 ng/mL (<0.04) 03/21/19 11:56 Total Protein 7.7 g/dL (6.4-8.9) 03/21/19 11:56 Albumin 3.9 g/dL (3.2-5.2) 03/21/19 11:56 Globulin 3.8 g/dL (2-4) 03/21/19 11:56 Albumin/Globulin Ratio 1.0 (1-3) 03/21/19 11:56 Urine Color Yellow 03/28/19 08:52 Urine Appearance Cloudy 03/28/19 08:52 Urine pH 7.0 (5-9) 03/28/19 08:52 Ur Specific [place] 1.006 (1.010-1.030) L 03/28/19 08:52 Urine Protein Negative (Negative) 03/28/19 08:52 Urine Ketones Negative (Negative) 03/28/19 08:52 Urine Blood 3+ (Negative) A 03/28/19 08:52 Urine Nitrate Negative (Negative) 03/28/19 08:52 Urine Bilirubin Negative (Negative) 03/28/19 08:52 Urine Urobilinogen Negative (Negative) 03/28/19 08:52 Ur Leukocyte Esterase 3+ (Negative) A 03/28/19 08:52 Urine WBC (Auto) 3+(>20/hpf) (Absent) A 03/28/19 08:52 Urine RBC (Auto) 3+(>10/hpf) (Absent) A 03/28/19 08:52 Ur Squamous Epith Cells Present (Absent) A 03/28/19 08:52 Urine Bacteria Absent (Absent) 03/28/19 08:52 Urine Glucose Negative (Negative) 03/28/19 08:52 Carbamazepine 8.9 mcg/mL (4.0-12.0) 03/21/19 11:56 Microbiology 03/21/19 16:52 Blood Culture - Final Blood Venous No Growth Day 5 03/21/19 16:54 Blood Culture - Final Blood Venous No Growth Day 5 03/21/19 12:09 Urine Culture - Final Urine Serratia Marcescens Raoutella [place] Escherichia Coli 03/22/19 19:35 Urine Culture - Final Urine Assessment: 1. UTI in the setting of self catherization at home and urinary hardware. Urine culture with serratia >100K, Raoutella > 100K and E coli. Initially on cefepime and changed to ceftriaxone once culture results were back. Afebrile and no leukocytosis. Blood cultures with no growth day 5. S/P cysto and stent exchange , no renal calculi noted. 2. Encephalopathy. Suspect secondary to #1. Continues to improve. 3. Nephrolithiasis without hydronephrosis. Ureteral stent in place. S/P cysto and stent exchange 03/27/19. 4. MS with neurogenic bladder. Straight caths at home. Indwelling catheter placed on admission and remains in place. Plan: Ceftriaxone, day 7. Transition to oral Cipro for 1 week at discharge.
[2019-03-29] MEDS: CMCS: Anastrozole (NF) 1 MG TAB PO SCH (13:04)
[2019-03-29 13:59] VITALS: BP 121/67
[2019-03-29] MEDS: Insulin GLARGINE(*) 1 UNITS UNIT SUBCUT SCH (15:06)
--- NOTE | 2019-03-29 21:01 | DS ---
DISCHARGE SUMMARY: ADDENDUM: DATE OF ADMISSION: 03/25/19. DATE OF DISCHARGE: 03/29/19. This as an addendum for the dictation summary that was done by Dr. Sherice Morales, dictated on at 7:30 p.m. DISCHARGE MEDICATIONS: 1. Tylenol 650 q.6 p.r.n. 2. Arimidex 1 mg daily. 3. Lipitor 40 at bedtime. 4. Baclofen 10 mg 4 times a day. 5. Tegretol 200 b.i.d. 6. Vitamin D 1000 units at bedtime. 7. Hydrocodone 5/325 one tab q.6 hours p.r.n. 8. Losartan 100 mg daily. 9. Toprol-XL 100 mg daily. 10. Multivitamin daily. 11. Oxybutynin 5 mg daily. 12. Cipro 250 mg b.i.d. x7 days. 13. Colace 100 mg b.i.d. 14. Glipizide 10 mg b.i.d. 15. Nystatin cream. 16. Patanol 0.1% one drop both eyes b.i.d. 17. MiraLAX 17 g p.o. daily. 18. Silvadene topically twice a day. DISCHARGE FOLLOWUP: The patient to follow up with Dr. Eaton, Urology, in 1 to 2 weeks. Follow up with her neurologist, Dr. Nur as scheduled for MS. Follow up with her primary care, Dr. Arcenio Olivares in 1 to 2 weeks. The patient will need an appointmen t with [facility]ral decubitus. DISCHARGE DISPOSITION: Home. DISCHARGE CONDITION: Stable. [id number]/[facility] #: [id number]
== END 2019-03-29 15:30 | disposition home or self-care (01) | DRG 660 ==
LOC: ED 10:28 → MED 16:09
PROVIDERS: ADMIT Internal Medicine; ATTEND Internal Medicine
PROC: BT1FZZZ Fluoroscopy of Left Kidney, Ureter and Bladder (ICD-10-PCS; 2019-03-27)
PROC: 0TP98DZ Removal of Intraluminal Device from Ureter, Via Natural or Artificial Opening Endoscopic (ICD-10-PCS; 2019-03-27)
PROC: 0TJ58ZZ Inspection of Kidney, Via Natural or Artificial Opening Endoscopic (ICD-10-PCS; 2019-03-27)
PROC: 0TJ98ZZ Inspection of Ureter, Via Natural or Artificial Opening Endoscopic (ICD-10-PCS; 2019-03-27)
PROC: 0T778DZ Dilation of Left Ureter with Intraluminal Device, Via Natural or Artificial Opening Endoscopic (ICD-10-PCS; principal; 2019-03-27 17:00)
DX: N39.0 Urinary tract infection, site not specified (principal); G93.49 Other encephalopathy; G35 Multiple sclerosis; N31.9 Neuromuscular dysfunction of bladder, unspecified; G40.909 Epilepsy, unspecified, not intractable, without status epilepticus; E78.5 Hyperlipidemia, unspecified; I10 Essential (primary) hypertension; E66.3 Overweight; E11.9 Type 2 diabetes mellitus without complications; L89.322 Pressure ulcer of left buttock, stage 2; L89.312 Pressure ulcer of right buttock, stage 2; K59.00 Constipation, unspecified; E86.0 Dehydration; B96.89 Other specified bacterial agents as the cause of diseases classified elsewhere; Z79.84 Long term (current) use of oral hypoglycemic drugs; Z87.442 Personal history of urinary calculi; Z88.2 Allergy status to sulfonamides; Z88.8 Allergy status to other drugs, medicaments and biological substances; Z83.3 Family history of diabetes mellitus; Z80.6 Family history of leukemia; Z87.891 Personal history of nicotine dependence; Z68.26 Body mass index [BMI] 26.0-26.9, adult; Z90.49 Acquired absence of other specified parts of digestive tract; Z85.3 Personal history of malignant neoplasm of breast
CPT/HCPCS: 36415; 70450; 71046; 74420; 76770; 80048; 80053; 80156; 81003; 81015; 83605; 84484; 85025; 87040; 87077; 87086; 87186; 93005; 99284; A9270-GY; C1876; G8978-GP-CM; G8979-GP-CM; G8980-GP-CM; J0692; J0696; J1650; J2270; J2405; J2704; J2765; J3010

== ENCOUNTER 2019-04-26 06:41 | Observation (INO) | payer MEDICARE, MEDICAID ==
--- OUTSIDE RECORDS SUMMARY | 2019-04-26 07:57 | XMS REPORT | Continuity of Care Document ---
:1950 External Reference #:[id number] Author Name Cristian Nur M.D. (transmitted by agent of provider Erin Menjivar ) Address [address], [address] Unavailable [place] [id number] Problems Active Problems Provider Date Multiple sclerosis Cristian Nur M.D. Onset: 03/19/2015 Social History Type Date Description Comments Sex Unknown ETOH Use Never used alcohol Tobacco Use Start: Unknown Patient has never smoked Smoking Status Reviewed: 04/18/19 Patient has never smoked Exercise Type/Frequency Does not exercise Allergies, Adverse Reactions, Alerts Active Allergies Reaction Severity Comments Date Sulfa Antibiotics 03/21/2013 Lisinopril lips swell 03/19/2015 Medications Active Medications SIG Qnty Indications Ordering Date Provider Diazepam 1 prior to MRI scan 2tabs G35 Cristian Powers 04/18/2019 2mg Tablets ,may repeat 1 dinora Nur M.D. 6 " Catheter 14 use as directed 180units Cristian Powers 07/01/2015 Erasmo Nur M.D. Clotrimazole/Betamet use once a day when Unknown hasone Dipropionate changing bandage 1-0.05% Cream Miralax 17 grams by mouth Unknown Powder every day as needed Colace 1 tab every 12 Unknown 100mg Capsules hours as needed for constipation Vitamin D3 High 1 by mouth every Unknown Potency day 1000Unit Capsules Lipitor 1 by mouth at Unknown 40mg Tablets bedtime Glipizide 2 tabs by mouth Unknown 5mg Tablets twice a day Arimidex 1 by mouth every Unknown 1mg Tablets day Daily Vitamin 1 by mouth every Unknown day Tablets Hydrocodone-Acetamin 1 by mouth every Unknown ophen 4-6 hours prn. 5-325mg Tablets Advil as needed Unknown 200mg Tablets Losartan Potassium 1 by mouth every Unknown day 100mg Tablets Glyburide 1 po qd Unknown 5mg Tablets Oxybutynin Chloride 1 po bid Unknown 5mg Tablets Metoprolol Succinate 1 po qd 90tabs Unknown ER 100mg Tablets ER 24HR Carbamazepine 1 tab by mouth bid 90tabs Unknown 200mg Tablets Baclofen 1 by mouth four 165tabs Cristian S. 20mg Tablets times a day and 1 Gunnar Nur 1/2 at bedtime History Medications Fluconazole 1 by mouth 10tabs B37.49 Juan Griffiths 03/16/2019 - 200mg every day Gunnar Lee 04/17/2019 Tablets Immunizations Description No Information Available Vital Signs Date Vital Result Comment 04/18/2019 1:39pm Height 61 inches Weight 135.00 lb pt in wheelchair Heart Rate 72 /min BP Systolic 136 mmHg BP Diastolic 78 mmHg BMI (Body Mass Index) 25.5 kg/m2 03/16/2019 1:27pm Weight 120.38 lb Heart Rate 70 /min Body Temperature 98.2 F O2 % BldC Oximetry 96 % Results Test Date Facility Test Result H/L Range Note Laboratory test 04/10/2019 [facility] Prealbumin 35 mg/dL Normal 18-[address] [place] [address] [phone] Vitamin B12 607 pg/mL Normal 180-914 1 Vitamin D Total 25(Oh) 63.3 ng/mL High 20-50 2 Laboratory 04/10/2019 [facility] Carbamazepine 4.8 Normal 4.0- 12.0 test finding [address] (Tegretol) g/[place] [address] [phone] 1 Normal Range 180 to 914 Indeterminate Range 145 to 180 Deficient Range <145 2 Total 25-Hydroxyvitamin D2 and D3 (25-OH-VitD) <10 ng/mL (severe deficiency) 10-19 ng/mL (mild to moderate deficiency) 20-50 ng/mL (optimum levels) 51-80 ng/mL (increased risk of hypercalciuria) >80 ng/mL (toxicity possible) Procedures Date Code Description Status 10/15/2016 [id number] Mammogram Completed 09/24/2016 [id number] Mammogram Completed 09/18/2016 [id number] Mammogram Completed Medical Devices Description No Information Available Encounters Type Date Location Provider Dx Diagnosis Office Visit 03/28/2019 [facility] Netta Orozco L89.312 Pressure ulcer of 9:15a Center AT [facility] TIANA Chavez right buttock, stage 2 L89.322 Pressure ulcer of left buttock, stage 2 E11.9 Type 2 diabetes mellitus without complications Z78.9 Other specified health status Office Visit 03/27/2019 10:30a [facility] Netta Orozco N39.0 Urinary tract For Tad Chavez NP infection, site Diseases not specified G93.40 Encephalopathy, unspecified N20.0 Calculus of kidney G35 Multiple sclerosis N31.9 Neuromuscular dysfunction of bladder, unspecified Office Visit 03/23/2019 [facility] Netta Orozco G93.40 Encephalopathy, 10:29a For Tad Chavez NP unspecified Diseases N20.0 Calculus of kidney G35 Multiple sclerosis N31.9 Neuromuscular dysfunction of bladder, unspecified Office Visit 03/22/2019 [facility] Pam G93.40 Encephalopathy, 10:28a For Infectious TIANA Chavez unspecified Diseases N20.0 Calculus of kidney G35 Multiple sclerosis N31.9 Neuromuscular dysfunction of bladder, unspecified Office Visit 03/16/2019 1:20p [facility] For Juan Griffiths N39.0 Urinary tract Infectious Gunnar Lee infection, site Diseases not specified Z96.0 Presence of urogenital implants B37.49 Other urogenital candidiasis R53.83 Other fatigue Office Visit 11/30/2018 10:16a [facility] Margret Ivy, G92 Toxic encephalopathy Assoc,pc [employer] Hospitalists R33.9 Retention of urine, unspecified N17.9 [...] [facility] Center Raya R41.82 Altered mental 10:14a Assoc,audrey Henderson NP status, Hospitalists unspecified N39.0 Urinary tract infection, site not specified E11.9 Type 2 diabetes mellitus without complications L89.302 Pressure ulcer of unspecified buttock, stage 2 Office Visit 11/07/2018 10:08a [facility] Marisel Dill, N39.0 Urinary tract Assoc,audrey DIAZ infection, site Hospitalists not specified N31.9 Neuromuscular [...] R14.0 Abdominal distension (gaseous) Office Visit 11/04/2018 [facility] Juan Griffiths T83.511A I/I react d/t 1:36p For Tad Lee M.D. indwelling Diseases urethral catheter, init G35 Multiple [...] [facility] Liz[facility] A49.8 Other bacterial Assoc,pc MD Lukas infections of Hospitalists unspecified site G92 Toxic encephalopathy L89.152 Pressure ulcer of sacral region, stage 2 E11.9 Type 2 diabetes mellitus without complications I10 Essential (primary) hypertension R14.0 Abdominal distension (gaseous) Office Visit 11/02/2018 [facility] Juan AguayoMckenzie G93.40 Encephalopathy, 1:01p For Infectious Gunnar Lee unspecified Diseases N39.0 Urinary tract infection, site not specified N20.9 Urinary calculus, unspecified G35 Multiple sclerosis N31.9 Neuromuscular dysfunction of bladder, unspecified Z96.0 Presence of urogenital implants Office Visit 11/02/2018 10:06a [facility] Giacomo Redding, A49.8 Other bacterial Assoc,pc infections of Hospitalists unspecified site K59.00 Constipation, unspecified L89.152 Pressure ulcer of sacral region, stage 2 G92 Toxic encephalopathy E11.9 Type 2 diabetes mellitus without complications M54.5 Low back pain G35 Multiple sclerosis N31.9 Neuromuscular dysfunction of bladder, unspecified Office Visit 11/02/2018 8:45a [facility] Netta Orozco E11.622 Type 2 diabetes Center [facility] Chavez, FUN[employer]AL [employer] DIRECTOR mellitus with other skin ulcer L89.312 Pressure ulcer of right buttock, stage 2 L89.322 Pressure ulcer of left buttock, stage 2 Z78.9 Other specified health status Office Visit 11/01/2018 10:06a [facility] Giacomo Redding, A49.8 Other bacterial Assoc,pc infections of Hospitalists unspecified site K59.00 Constipation, unspecified L89.322 Pressure ulcer of left buttock, stage 2 G92 Toxic encephalopathy E11.9 Type 2 diabetes mellitus without complications M54.5 Low back pain G35 Multiple sclerosis N31.9 Neuromuscular dysfunction of bladder, unspecified Office Visit 10/30/2018 [facility] Emma Caio, A41.9 Sepsis, 10:05a audrey Holguin M.D. unspecified Hospitalists organism G40.909 Epilepsy, unsp, not intractable, without status epilepticus E11.9 Type 2 diabetes mellitus without complications I10 Essential (primary) hypertension L89.152 Pressure ulcer of sacral region, stage 2 Office Visit 10/27/2018 10:57a [facility] Naida A41.51 Sepsis due to Assoc,Dede Cronin.Parminder Escherichia coli Hospitalists [E. coli] N39.0 Urinary [...] Netta Orozco L89.312 Pressure ulcer Center [facility] Kathy [employer] DIRECTOR of right buttock, stage 2 L89.322 Pressure ulcer of left buttock, stage 2 Z78.9 Other specified health status Office Visit 10/25/2018 10:57a [facility] Shazia K56.609 Unsp intestnl Assocaudrey M.D. obst, unsp as Hospitalists [...] 10:56a [facility] Shazia K56.609 Unsp intestnl Assoc,audrey Lopes M.D. obst, unsp as [...] [facility] Center Luisana A41.89 Other specified Assoc,audrey Oscar, sepsis Hospitalists G92 Toxic encephalopathy L89.312 Pressure ulcer of right buttock, stage 2 L89.322 Pressure ulcer of left buttock, stage 2 E11.9 Type 2 diabetes mellitus without complications G35 Multiple sclerosis N31.8 Other neuromuscular dysfunction of bladder E87.8 Oth disorders of electrolyte and fluid balance, NEC Office Visit 10/21/2018 12:08p [facility] Rakan Griffiths N39.0 Urinary tract Infectious Gunnar Lee infection, site Diseases not specified G35 Multiple sclerosis R33.9 Retention of urine, unspecified Z96.0 Presence of urogenital implants Office Visit 10/21/2018 [facility] G92 Toxic encephalopathy 10:55a Assoc,audrey Mix, TIANA Hospitalists A41.89 Other specified sepsis L89.312 Pressure ulcer of right buttock, stage 2 L89.322 Pressure ulcer of left buttock, stage 2 E87.8 Oth disorders of electrolyte and fluid balance, NEC E11.9 Type 2 diabetes mellitus without complications G35 Multiple sclerosis N31.8 Other neuromuscular dysfunction of bladder G40.909 Epilepsy, unsp, not intractable, without status epilepticus Office Visit 10/20/2018 10:55a [facility] A41.89 Other specified Assoc,audrey Montgomery M.D. sepsis Hospitalists G92 Toxic encephalopathy L89.312 Pressure ulcer of right buttock, stage 2 L89.322 Pressure ulcer of left buttock, stage 2 E11.9 Type 2 diabetes mellitus without complications G35 Multiple sclerosis N31.8 Other neuromuscular dysfunction of bladder G40.909 Epilepsy, unsp, not intractable, without status epilepticus Assessments Date Code Description Provider 04/18/2019 N31.9 Neuromuscular dysfunction of Cristian Nur M.D. bladder, unspecified 04/18/2019 G35 Multiple sclerosis Cristian Nur M.D. 04/18/2019 F02.80 Dementia in other diseases Cristian Nur M.D. 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 right side 03/29/2019 R41.0 Disorientation, unspecified Trevin Salazar M.D. 03/29/2019 E11.9 Type 2 diabetes mellitus without Trevin Salazar M.D. complications 03/29/2019 G35 Multiple sclerosis Trevin Salazar M.D. 03/29/2019 N31.9 Neuromuscular dysfunction of Trevin Salazar M.D. bladder, unspecified 03/29/2019 N39.0 Urinary tract infection, site not Trevin Salazar M.D. specified 03/29/2019 Z96.0 Presence of urogenital implants Trevin Salazar M.D. 03/28/2019 L89.312 Pressure ulcer of right buttock, Netta Chavez NP stage 2 03/28/2019 N39.0 Urinary tract infection, site not Trevin Salazar M.D. specified 03/28/2019 L89.322 Pressure ulcer of left buttock, Netta Chavez NP stage 2 03/28/2019 Z96.0 Presence of urogenital implants Trevin Salazar M.D. 03/28/2019 E11.9 Type 2 diabetes mellitus without Netta Chavez NP complications 03/28/2019 K59.00 Constipation, unspecified Trevin Salazar M.D. 03/28/2019 Z78.9 Other specified health status Netta Chavez NP 03/28/2019 G35 Multiple sclerosis Trevin Salazar M.D. 03/28/2019 N31.9 Neuromuscular dysfunction of Trevin Salazar M.D. bladder, unspecified 03/27/2019 N39.0 Urinary tract infection, site not Netta Chavez NP specified 03/27/2019 R41.0 Disorientation, unspecified Sherice Morales MD 03/27/2019 G93.40 Encephalopathy, unspecified Netta Chavez NP 03/27/2019 E11.9 Type 2 diabetes mellitus without Sherice Morales MD complications 03/27/2019 N20.0 Calculus of kidney Netta Chavez, TIANA 03/27/2019 G35 Multiple sclerosis Sherice Morales MD 03/27/2019 G35 Multiple sclerosis Netta Chavez, TIANA 03/27/2019 N31.9 Neuromuscular dysfunction of Sherice Morales MD bladder, unspecified 03/27/2019 N31.9 Neuromuscular dysfunction of Netta Chavez NP bladder, unspecified 03/27/2019 N39.0 Urinary tract infection, site not Sherice Morales MD specified 03/27/2019 Z96.0 Presence of urogenital implants Sherice Morales MD 03/26/2019 R41.0 Disorientation, unspecified Sherice Morales MD 03/26/2019 E11.9 Type 2 diabetes mellitus without Sherice Morales MD complications 03/26/2019 G35 Multiple sclerosis Sherice Morales MD 03/26/2019 N31.9 Neuromuscular dysfunction of Sherice Morales MD bladder, unspecified 03/26/2019 N39.0 Urinary tract infection, site not Sherice Morales MD specified 03/26/2019 Z96.0 Presence of urogenital implants Sherice Morales MD 2019 R41.0 Disorientation, unspecified Sherice Morales MD 2019 E11.9 Type 2 diabetes mellitus without Sherice Morales MD complications 2019 G35 Multiple sclerosis Sherice Morales MD 2019 N31.9 Neuromuscular dysfunction of Sherice Morales MD bladder, unspecified 2019 N39.0 Urinary tract infection, site not Sherice Morales MD specified 2019 Z96.0 Presence of urogenital implants Sherice Morales MD 03/24/2019 R41.0 Disorientation, unspecified Sherice Morales MD 03/24/2019 E11.9 Type 2 diabetes mellitus without Sherice Morales MD complications 03/24/2019 G35 Multiple sclerosis Sherice Morales MD 03/24/2019 N31.9 Neuromuscular dysfunction of Sherice Morales MD bladder, unspecified 03/24/2019 N39.0 Urinary tract infection, site not Sherice Morales MD specified 03/24/2019 Z96.0 Presence of urogenital implants Sherice Morales MD 03/23/2019 G93.40 Encephalopathy, unspecified Netta Chavez, TIANA 03/23/2019 R41.0 Disorientation, unspecified Beau Howard M.D.,FACP 03/23/2019 N20.0 Calculus of kidney Netta Chavez, TIANA 03/23/2019 N39.0 Urinary tract infection, site not Beau Howard M.D., FACP specified 03/23/2019 G35 Multiple sclerosis Netta Chavez, TIANA 03/23/2019 E11.9 Type 2 diabetes mellitus without Beau Howard M.D., FACP complications 03/23/2019 N31.9 Neuromuscular dysfunction of Netta Chavez NP bladder, unspecified 03/23/2019 Z96.0 Presence of urogenital implants Beau Howard M.D., FACP 03/22/2019 G93.40 Encephalopathy, unspecified Netta Orozco Chavez, [employer]AL HOME DIRECTOR 03/22/2019 R41.0 Disorientation, unspecified Beau Howard M.D.,FACP 03/22/2019 N20.0 Calculus of kidney Netta Chavez, FUNERAL HOME DIRECTOR 03/22/2019 N39.0 Urinary tract infection, site not Beau Howard M.D., FACP specified 03/22/2019 G35 Multiple sclerosis Netta Chavez, FUNERAL HOME DIRECTOR 03/22/2019 E11.9 Type 2 diabetes mellitus without Beau Howard M.D., FACP complications 03/22/2019 N31.9 Neuromuscular dysfunction of Netta Chavez, [employer]AL [employer] DIRECTOR bladder, unspecified 03/21/2019 R53.1 Weakness ROSY Garcia 03/21/2019 R53.83 Other fatigue ROSY Garcia 03/21/2019 G35 Multiple sclerosis ROSY Garcia 03/21/2019 G40.909 Epilepsy, unspecified, not ROSY Garcia intractable, without status epilepticus 03/21/2019 I10 Essential (primary) hypertension ROSY Garcia 03/21/2019 E11.9 Type 2 diabetes mellitus without ROSY Garcia complications 03/21/2019 E78.5 Hyperlipidemia, unspecified ROSY Garcia 03/16/2019 N39.0 Urinary tract infection, site not Jaun Lee M.D. specified 03/16/2019 Z96.0 Presence of urogenital implants Juan Lee M.D. 03/16/2019 B37.49 Other urogenital candidiasis Juan Lee M.D. 03/16/2019 R53.83 Other fatigue Juan Lee M.D. 11/30/2018 G92 Toxic encephalopathy Margret Ivy, [employer]AL [employer] DIRECTOR 11/30/2018 R33.9 Retention of urine, unspecified Margret Ivy, FUNERAL HOME DIRECTOR 11/30/2018 N17.9 Acute kidney failure, unspecified Margret Ivy, FUNERAL HOME DIRECTOR 11/30/2018 N31.9 Neuromuscular dysfunction of Margret Ivy, FUNERAL [employer] DIRECTOR bladder, unspecified 11/30/2018 E11.9 Type 2 diabetes mellitus without Margret Ivy, [employer]ERAL [employer] DIRECTOR complications 11/29/2018 R41.82 Altered mental status, unspecified Margret Ivy, FUNERAL HOME DIRECTOR 11/29/2018 R41.82 Altered mental status, unspecified Soraya Avila MD 11/29/2018 N39.0 Urinary tract infection, site not Soraya Avila MD specified 11/29/2018 E11.9 Type 2 diabetes mellitus without Margret Ivy, [employer]AL [employer] DIRECT[employer] complications 11/29/2018 G35 Multiple sclerosis Soraya Avila MD 11/29/2018 Z99.3 Dependence on wheelchair Soraya Avila MD 11/29/2018 G35 Multiple sclerosis Margret Ivy, FUNERAL HOME DIRECTOR 11/29/2018 N31.9 Neuromuscular dysfunction of Margret Ivy, FUNERAL HOME DIRECTOR bladder, unspecified 11/28/2018 R41.82 Altered mental status, unspecified Margret Ivy, FUNERAL HOME DIRECTOR 11/28/2018 E11.9 Type 2 diabetes mellitus without Margret Ivy, FUNERAL HOME DIRECTOR complications 11/28/2018 N39.0 Urinary tract infection, site not Margret Ivy, FUNERAL HOME DIRECTOR specified 11/28/2018 N31.9 Neuromuscular dysfunction of Margret Ivy, FUNERAL HOME DIRECTOR bladder, unspecified 11/28/2018 G35 Multiple sclerosis Margret Ivy, FUNERAL HOME DIRECTOR 11/28/2018 I10 Essential (primary) hypertension Margret Ivy, FUNERAL HOME DIRECTOR 11/27/2018 R41.82 Altered mental status, unspecified Raya Beatriz, FUNERAL HOME DIRECTOR 11/27/2018 N39.0 Urinary tract infection, site not Raya Harlem, FUNERAL HOME DIRECTOR specified 11/27/2018 E11.9 Type 2 diabetes mellitus without Raya Beatriz, FUNERAL HOME DIRECTOR complications 11/27/2018 L89.302 Pressure ulcer of unspecified Raya Harlem, FUNERAL HOME DIRECTOR buttock, stage 2 11/07/2018 N39.0 Urinary tract infection, site not Marisel Crawford MD specified 11/07/2018 N31.9 Neuromuscular dysfunction of Marisel Crawford MD bladder, unspecified 11/07/2018 G35 Multiple sclerosis Marisel Crawford MD 11/07/2018 L89.312 Pressure ulcer of right buttock, Marisel Crawford MD stage 2 11/07/2018 L89.322 Pressure ulcer of left buttock, Marisel Crawford MD stage 2 11/07/2018 R41.82 Altered mental status, unspecified Marisel Crawford MD 11/06/2018 R41.82 Altered mental status, unspecified Marisel Crawford MD 11/06/2018 G92 Toxic encephalopathy Marisel Crawford MD 11/06/2018 A49.8 Other bacterial infections of Marisel Crawford MD unspecified site 11/06/2018 L89.152 Pressure ulcer of sacral region, Marisel Crawford MD stage 2 11/06/2018 I10 Essential (primary) hypertension Marisel Crawford MD 11/06/2018 E11.9 Type 2 diabetes mellitus without Marisel Crawford MD complications 11/05/2018 A49.8 Other bacterial infections of Lizet Gaytan MD unspecified site 11/05/2018 G92 Toxic encephalopathy Lizet Gaytan MD 11/05/2018 L89.152 Pressure ulcer of sacral region, Lizet Gaytan MD stage 2 11/05/2018 I10 Essential (primary) hypertension Lizet Gaytan MD 11/05/2018 E11.9 Type 2 diabetes mellitus without Lizet Gaytan MD complications 11/05/2018 R14.0 Abdominal distension (gaseous) Lizet Gaytan MD 11/04/2018 A49.8 Other bacterial infections of Lizet Gaytan MD unspecified site 11/04/2018 T83.511A I/I react d/t indwelling urethral Juan Lee M.D. catheter, init 11/04/2018 G92 Toxic encephalopathy Lizet Gaytan MD 11/04/2018 G35 Multiple sclerosis Juan Lee M.D. 11/04/2018 L89.152 Pressure ulcer of sacral region, Lizet Gaytan MD stage 2 11/04/2018 N31.9 Neuromuscular dysfunction of Juan Lee M.D. bladder, unspecified 11/04/2018 E11.9 Type 2 diabetes mellitus without Lizet Gaytan MD complications 11/04/2018 I10 Essential (primary) hypertension Lziet Gaytan MD 11/04/2018 R14.0 Abdominal distension (gaseous) Lizet Gaytan MD 11/03/2018 A49.8 Other bacterial infections of Lizet Gaytan MD unspecified site 11/03/2018 G92 Toxic encephalopathy Lizet Gaytan MD 11/03/2018 L89.152 Pressure ulcer of sacral region, Lizet Gaytan MD stage 2 11/03/2018 E11.9 Type 2 diabetes mellitus without Lizet Gaytan MD complications 11/03/2018 I10 Essential (primary) hypertension Lizet Gaytan MD 11/03/2018 R14.0 Abdominal distension (gaseous) Lizet Gaytan MD 11/02/2018 E11.622 Type 2 diabetes mellitus with other Netta Chavez NP skin ulcer 11/02/2018 A49.8 Other bacterial infections of Giacomo Redding MD unspecified site 11/02/2018 G93.40 Encephalopathy, unspecified Juan Lee M.D. 11/02/2018 L89.312 Pressure ulcer of right buttock, Netta Chavez NP stage 2 11/02/2018 K59.00 Constipation, unspecified Giacomo Redding MD 11/02/2018 L89.322 Pressure ulcer of left buttock, Netta Chavez NP stage 2 11/02/2018 Z78.9 Other specified health status Netta Chavez NP 11/02/2018 L89.152 Pressure ulcer of sacral region, Giacomo Redding MD stage 2 11/02/2018 N39.0 Urinary tract infection, site not Juan Lee M.D. specified 11/02/2018 G92 Toxic encephalopathy Giacomo Redding MD 11/02/2018 E11.9 Type 2 diabetes mellitus without Giacomo Redding MD complications 11/02/2018 N20.9 Urinary calculus, unspecified Juan Lee M.D. 11/02/2018 M54.5 Low back pain Giacomo Redding MD 11/02/2018 G35 Multiple sclerosis Giacomo Redding MD 11/02/2018 G35 Multiple sclerosis Juan Lee M.D. 11/02/2018 N31.9 Neuromuscular dysfunction of Giacomo Redding MD bladder, unspecified 11/02/2018 N31.9 Neuromuscular dysfunction of Juan Lee M.D. bladder, unspecified 11/02/2018 Z96.0 Presence of urogenital implants Juan Lee M.D. 11/01/2018 G92 Toxic encephalopathy Giacomo Redding MD 11/01/2018 K59.00 Constipation, unspecified Giacomo Redding MD 11/01/2018 A49.8 Other bacterial infections of Giacomo Redding MD unspecified site 11/01/2018 L89.152 Pressure ulcer of sacral region, Giacomo Redding MD stage 2 11/01/2018 E11.9 Type 2 diabetes mellitus without Giacomo Redding MD complications 11/01/2018 M54.5 Low back pain Giacomo Redding MD 11/01/2018 G35 Multiple sclerosis Giacomo Redding MD 11/01/2018 N31.9 Neuromuscular dysfunction of Giacomo Redding MD bladder, unspecified 10/31/2018 A49.8 Other bacterial infections of Giacomo Redding MD unspecified site 10/31/2018 K59.00 Constipation, unspecified Giacomo Redding MD 10/31/2018 L89.322 Pressure ulcer of left buttock, Giacomo Redding MD stage 2 10/31/2018 G92 Toxic encephalopathy Giacomo Redding MD 10/31/2018 E11.9 Type 2 diabetes mellitus without Giacomo Redding MD complications 10/31/2018 M54.5 Low back pain Giacomo Redding MD 10/31/2018 G35 Multiple sclerosis Giacomo Redding MD 10/31/2018 N31.9 Neuromuscular dysfunction of Giacomo Redding MD bladder, unspecified 10/30/2018 A41.9 Sepsis, unspecified organism Emma Kearney M.D. 10/30/2018 G40.909 Epilepsy, unsp, not intractable, Emma Kearney M.D. without status epilepticus 10/30/2018 E11.9 Type 2 diabetes mellitus without Emma Kearney M.D. complications 10/30/2018 I10 Essential (primary) hypertension Emma Kearney M.D. 10/30/2018 L89.152 Pressure ulcer of sacral region, Emma Kearney M.D. stage 2 10/27/2018 A41.51 Sepsis due to Escherichia coli [Prabha Mas D.O. coli] 10/27/2018 N39.0 Urinary tract infection, site not Naida Chace, D.O. specified 10/27/2018 L89.312 Pressure ulcer of right buttock, Naida Chace, D.O. stage 2 10/27/2018 L89.322 Pressure ulcer of left buttock, Naida Chace, D.O. stage 2 10/27/2018 G35 Multiple sclerosis Naida Chace, D.O. 10/27/2018 N20.0 Calculus of kidney Naida Chace, D.O. 10/27/2018 N31.8 Other neuromuscular dysfunction of Naida Chace, D.O. bladder 10/27/2018 E11.9 Type 2 diabetes mellitus without Naida Chace, D.O. complications 10/27/2018 I10 Essential (primary) hypertension Naida Chace, D.O. 10/26/2018 N39.0 Urinary tract infection, site not Naida Chace, D.O. specified 10/26/2018 L89.312 Pressure ulcer of right buttock, Netta Chavez NP stage 2 10/26/2018 L89.312 Pressure ulcer of right buttock, Naida Chace, D.O. stage 2 10/26/2018 L89.322 Pressure ulcer of left buttock, Netta Chavez NP stage 2 10/26/2018 L89.322 Pressure ulcer of left buttock, Naida Chace, D.O. stage 2 10/26/2018 Z78.9 Other specified health status Netta Chavez NP 10/26/2018 E11.9 Type 2 diabetes mellitus without Naida Chace, D.O. complications 10/26/2018 G35 Multiple sclerosis Naida Chace, D.O. 10/26/2018 N31.8 Other neuromuscular dysfunction of Naida Chace, D.O. bladder 10/25/2018 K56.609 Unsp intestnl obst, unsp as to Shazia Lopes M.D. partial versus complete obst 10/25/2018 A41.89 Other specified sepsis Shazia Lopes M.D. 10/25/2018 G92 Toxic encephalopathy Shazia Lopes M.D. 10/25/2018 N39.0 Urinary tract infection, site not Shazia Lopes M.D. specified 10/25/2018 E87.6 Hypokalemia Shazia Lopes M.D. 10/25/2018 E83.42 Hypomagnesemia Shazia Lopes M.D. 10/25/2018 L89.312 Pressure ulcer of right buttock, Shazia Lopes M.D. stage 2 10/25/2018 L89.322 Pressure ulcer of left buttock, Shazia Lopes M.D. stage 2 10/25/2018 E11.9 Type 2 diabetes mellitus without Shazia Lopes M.D. complications 10/25/2018 G35 Multiple sclerosis Shazia Lopes M.D. 10/25/2018 N31.8 Other neuromuscular dysfunction of Shazia Lopes M.D. bladder 10/25/2018 C50.919 Malignant neoplasm of unsp site of Shazia Lopes M.D. unspecified female breast 10/24/2018 K56.609 Unsp intestnl obst, unsp as to Shazia Lopes M.D. partial versus complete obst 10/24/2018 A41.89 Other specified sepsis Shazia Lopes M.D. 10/24/2018 G92 Toxic encephalopathy Shazia Lopes M.D. 10/24/2018 N39.0 Urinary tract infection, site not Shazia Lopes M.D. specified 10/24/2018 E87.6 Hypokalemia Shazia Lopes M.D. 10/24/2018 E83.42 Hypomagnesemia Shazia Lopes M.D. 10/24/2018 L89.312 Pressure ulcer of right buttock, Shazia Lopes M.D. stage 2 10/24/2018 L89.322 Pressure ulcer of left buttock, Shazia Lopes M.D. stage 2 10/24/2018 E11.9 Type 2 diabetes mellitus without Shazia Lopes M.D. complications 10/24/2018 G35 Multiple sclerosis Shazia Lopes M.D. 10/24/2018 N31.8 Other neuromuscular dysfunction of Shazia Lopes M.D. bladder 10/24/2018 C50.919 Malignant neoplasm of unsp site of Shazia Lopes M.D. unspecified female breast 10/23/2018 A41.51 Sepsis due to Escherichia coli [E. Shazia Lopes M.D. coli] 10/23/2018 G92 Toxic encephalopathy Shazia Lopes M.D. 10/23/2018 N39.0 Urinary tract infection, site not Shazia Lopes M.D. specified 10/23/2018 E87.6 Hypokalemia Shazia Lopes M.D. 10/23/2018 E83.42 Hypomagnesemia Shazia Lopes M.D. 10/23/2018 L89.322 Pressure ulcer of left buttock, Shazia Lopes M.D. stage 2 10/23/2018 L89.312 Pressure ulcer of right buttock, Shazia Lopes M.D. stage 2 10/23/2018 E11.9 Type 2 diabetes mellitus without Shazia Lopes M.D. complications 10/23/2018 G35 Multiple sclerosis Shazia Lopes M.D. 10/23/2018 N31.8 Other neuromuscular dysfunction of Shazia Lopes M.D. bladder 10/23/2018 C50.919 Malignant neoplasm of unsp site of Shazia Lopes M.D. unspecified female breast 10/22/2018 A41.89 Other specified sepsis Luisana Senner, DO 10/22/2018 G92 Toxic encephalopathy Luisana Senner, DO 10/22/2018 L89.312 Pressure ulcer of right buttock, Luisana Senner, DO stage 2 10/22/2018 L89.322 Pressure ulcer of left buttock, Luisana Oscar, DO stage 2 10/22/2018 E11.9 Type 2 diabetes mellitus without Luisana Senner, DO complications 10/22/2018 G35 Multiple sclerosis Luisana Senner, DO 10/22/2018 N31.8 Other neuromuscular dysfunction of Luisana Senner, DO bladder 10/22/2018 E87.8 Oth disorders of electrolyte and Luisana Senner, DO fluid balance, NEC 10/21/2018 N39.0 Urinary tract infection, site not Juan Lee M.D. specified 10/21/2018 G92 Toxic encephalopathy Elvia Mix, FUNERAL HOME DIRECTOR 10/21/2018 G35 Multiple sclerosis Juan Lee M.D. 10/21/2018 A41.89 Other specified sepsis Elvia Mix, FUNERAL HOME DIRECTOR 10/21/2018 R33.9 Retention of urine, unspecified Juan Lee M.D. 10/21/2018 L89.312 Pressure ulcer of right buttock, Elvia Mix, FUNERAL HOME DIRECTOR stage 2 10/21/2018 Z96.0 Presence of urogenital implants Juan Lee M.D. 10/21/2018 L89.322 Pressure ulcer of left buttock, Elvia Mix, FUNERAL HOME DIRECTOR stage 2 10/21/2018 E87.8 Oth disorders of electrolyte and Elvia Mix, FUNERAL HOME DIRECTOR fluid balance, NEC 10/21/2018 E11.9 Type 2 diabetes mellitus without Elvia Mix, FUNERAL HOME DIRECTOR complications 10/21/2018 G35 Multiple sclerosis Elvia Mix, FUNERAL HOME DIRECTOR 10/21/2018 N31.8 Other neuromuscular dysfunction of Elvia Mix, FUNERAL HOME DIRECTOR bladder 10/21/2018 G40.909 Epilepsy, unsp, not intractable, Elvia Mix, FUNERAL HOME DIRECTOR without status epilepticus 10/20/2018 A41.89 Other specified sepsis Faustino Montgomery M.D. 10/20/2018 G92 Toxic encephalopathy Faustino Montgomery M.D. 10/20/2018 L89.312 Pressure ulcer of right buttock, Faustino Montgomery M.D. stage 2 10/20/2018 L89.322 Pressure ulcer of left buttock, Faustino Montgomery M.D. stage 2 10/20/2018 E11.9 Type 2 diabetes mellitus without Faustino Montgomery M.D. complications 10/20/2018 G35 Multiple sclerosis Faustino Montgomery M.D. 10/20/2018 N31.8 Other neuromuscular dysfunction of Faustino Montgomery M.D. bladder 10/20/2018 G40.909 Epilepsy, unsp, not intractable, Faustino Montgomery M.D. without status epilepticus Plan of Treatment Future Appointment(s):07/12/2019 2:45 pm - Cristian Nur M.D. at [facility]04/18/2019 - Cristian Nur M.D.N31.9 Neuromuscular dysfunction of bladder, [id number] Multiple sclerosisNew Medication:Diazepam 2 mg - 1 prior to MRI scan ,may repeat 1 prnNew Xrays:MRI Brain W/Wo, Ordered: 04/18/19F02.80 Dementia in other diseases classified elsewhere without behavioral [id number] Homonymous bilateral field defects, right side Functional Status Description No Information Available Mental Status Description No Information Available Referrals Description No Information Available
[2019-04-26] MEDS ORDERED: NS 0.9% 1000 ML** 1,000 ML IV.FLUID IV ONE (08:17)
[2019-04-26] MEDS ORDERED: ED cefTRIAXone 1 GM/50 ML 1 GM/50 ML PREMIX.SET IVPB ONE ×2 (08:17→08:45)
--- NOTE | 2019-04-26 08:29 | ED ---
Altered Mental Status - HPI Summary HPI Summary: LEVEL 5 CAVEAT - AMS This patient is a 69 year old F presenting to [facility] accompanied by with a chief complaint of AMS since night of 04/25/19. Pt has a hx of MS and has done self catheterizations for urine for years. The past few days pt has been too weak to do the catheterizations and when he has helped her, he notes that the last three times, "white stuff will come out of catheter". He states that pt was confused last pm and "she was ripping the sheets off the bed". Patient reports abdominal pain, and keeps saying its burning. Patients denies SOB, and Fever for pt. Pt has a Hx of multiple sclerosis and is able to sit in a wheelchair but her lifts her from the wheelchair for her to transfer from wheelchair to bed. Pt has had multiple episodes of urosepsis. Her states that pt has a stent in her L kidney due to a kidney stone in L ureter, placed by [facility]. Per pt's they were going to take out the stent, but this hasn't been done due to pt's multiple episodes of sepsis and UTI's. Vital signs while in room: HR 84 bpm, BP 139/84, O2 sat 93% - History Of Current Complaint Chief Complaint: EDAltMentalStatus Stated Complaint: INFECTION PER Time Seen by Provider: 04/26/19 08:17 Hx Obtained From: Patient - pt can only moan and state "it's burning", Family/ Hand Candle [employer] - Hx From Patient Unobtainable Due To: Altered Mental Status Onset/Duration: Still Present, Gradually Timing: Constant, Lasting Hours Severity Initially: Moderate Severity Currently: Moderate Character: Confusion, Lethargy Aggravating Factor(s): Unknown Alleviating Factor(s): Nothing Associated Signs And Symptoms: Positive: Weakness Related History: Similar Episode/Diagnosed As: - urosepsis - Allergies/Home Medications Allergies/Adverse Reactions: Allergies Allergy/AdvReac Type Severity Reaction Status Date / Time lisinopril Allergy Mild Swelling Verified 03/03/19 22:37 Sulfa (Sulfonamide AdvReac Intermediate Unknown Verified 03/03/19 22:37 Antibiotics) Reaction Details Home Medications: Home Medications Pioglitazone HCl 30 mg PO DAILY 04/26/19 [History Confirmed 08/28/19] PMH/Surg Hx/FS Hx/Imm Hx Previously Healthy: No - LEVEL 5 CAVEAT - AMS Endocrine/Hematology History: Reports: Hx Diabetes Cardiovascular History: Reports: Hx Hypertension Denies: Hx Pacemaker/ICD GI History: Reports: Hx Gall Bladder Disease - cholecystectomy History: Reports: Hx Dialysis, Hx Kidney Infection, Hx Kidney Stones, Other Problems/Disorders - HYDRONEPHROSIS, L STENT PLACED 03/04/19 Denies: Hx Renal Disease Musculoskeletal History: Reports: Other Musculoskeletal History - MS, DOES NOT AMBULATE; IN WC, sacral pressure ulcers Denies: Hx Arthritis Sensory History: Reports: Hx Contacts or Glasses - READING GLASSES Denies: Hx Hearing Aid Opthamlomology History: Reports: Hx Contacts or Glasses - READING GLASSES Neurological History: Reports: Hx Seizures, Other Neuro Impairments/Disorders - MULTIPLE SCLEROSIS Denies: Hx Headaches Psychiatric History: Denies: Hx Anxiety, Hx Depression, Hx Panic Disorder - Cancer History Cancer Type, Location and Year: RIGHT BREAST CA Hx Chemotherapy: No Hx Radiation Therapy: No - Surgical History Surgical History: Yes Surgery Procedure, Year, and Place: CHOLECYSTECTOMY. RIGHT BREAST-LUMPECTOMY. KIDNEY STONE PROCEDURES Hx Anesthesia Reactions: No Infectious Disease History: No Infectious Disease History: Denies: Traveled Outside the [place] in Last 30 Days - Family History Known Family History: Positive: Diabetes - Social History Occupation: Disabled Lives: With Family Alcohol Use: None Hx Substance Use: No Substance Use Type: Reports: None Hx Tobacco Use: Yes Smoking Status (MU): Former Smoker Amount Used/How Often: X 1-2 YEARS Have You Smoked in the Last Year: No Review of Systems Negative: Fever Cardiovascular: Negative Negative: Shortness Of Breath Positive: Abdominal Pain Positive: other - white substance in urinary catheter after self catheterizations for MS Skin: Other - 2 sacral decubitus ulcers followed in wound clinic, last seen Apr 10, 2019 Positive: Weakness Positive: Other - quiet, altered mental status All Other Systems Reviewed And Are Negative: No - Comments Additional Review of Systems Comments: LEVEL 5 CAVEAT - AMS Physical Exam - Summary Physical Exam Summary: LEVEL 5 CAVEAT - AMS Appearance: Ill-appearing, moderate pain distress (states "burning"), well- nourished Skin: Warm, color reflects adequate perfusion, dry, extremities cold to touch, except left foot which is reddened and warm, 2 sacral decubiti covered with tegoderm (dimensions described in nurse's note, Enoch) Decubiti examined with ED nurse Enoch, who re-dressed them and documented them. Head: Normal Head/Face inspection, atraumatic, Eyes: Conjunctiva clear, prefers eyes closed but opens to command ENT: dry oral mucosa, lower dental partial plate in place Neck: Supple, no nodes, no JVD Respiratory: diminished breath sounds throughout Cardio: RRR, No murmur, pulses normal, brisk capillary refill Abdomen: Soft, nontender Bowel sounds: Present Musculoskeletal: Moves all extremities minimally, however holds right arm bent at the elbow, no calf tenderness, no edema. Psychological: altered mental status, calm with present Neuro: prefers eyes closed but responds to voice, states only its burning when asked questions, moves all extremities except right forearm, follows most commands, facial symmetry, words of her speech are clear although repetitive and very limited. Triage Information Reviewed: Yes Vital Signs On Initial Exam: Initial Vitals Temp Pulse Resp BP Pulse Ox 97.5 F 86 18 127/80 98 04/26/19 06:50 04/26/19 06:50 04/26/19 06:50 04/26/19 06:50 04/26/19 06:50 Vital Signs Reviewed: Yes - [place] Coma Scale Best Eye Response: 3 - To Speech Best Motor Response: 5 - Purposeful Movement Best Verbal Response: 4 - Confused Coma Scale Total: 12 Diagnostics - Vital Signs Vital Signs Temp Pulse Resp BP Pulse Ox 04/26/19 08:00 88 31 95 04/26/19 07:45 78 11 134/85 94 04/26/19 06:50 97.5 F 86 18 127/80 98 - Laboratory Result Diagrams: 04/27/19 07:01 04/27/19 07:01 Lab Statement: Any lab studies that have been ordered have been reviewed, and results considered in the medical decision making process. - Radiology CXR Radiology Interpretation Completed By: Radiologist Summary of Radiographic Findings: CXR reveals, per radiologist, IMPRESSION: 1. NO ACUTE CARDIOPULMONARY PROCESS BY RADIOGRAPH 2. HYPOINFLATED LUNGS. ED physician has reviewed this radiology report. - CT Abdomen/Pelvis CT CT Interpretation Completed By: Radiologist Summary of CT Findings: Abdomen/Pelvis CT reveals, per radiologist. 1. NONOBSTRUCTING LEFT RENAL CALCULUS. STATUS POST PLACEMENT OF A LEFT URETERAL STENT. CATHETER. THERE IS NO EVIDENCE FOR HYDRONEPHROSIS. 2. AIR WITHIN THE URINARY BLADDER LIKELY SECONDARY TO FRANCO CATHETER PLACEMENT. 3. MILDLY ENLARGED RETROPERITONEAL LYMPH NODES, UNCHANGED. 4. CALCIFIED UTERINE FIBROID. 5. STATUS POST CHOLECYSTECTOMY. ED physician has reviewed this radiology report. - Ultrasound Renal US Ultrasound Interpretation Completed By: Radiologist Summary of Ultrasound Findings: Renal US reveals, per radiologist, IMPRESSION: 1. The suspected left ureteral stent is poorly imaged. There is no hydronephrosis. 2. Punctate nonobstructive calculi are redemonstrated in the lower pole of left kidney. ED physician has reviewed this radiology report. - EKG 0834 Cardiac Rate: NL EKG Rhythm: Sinus Rhythm ST Segment: Non-Specific Ectopy: None Summary of EKG Findings: An EKG at 0834 reveals sinus rhythm 80 bpm, nml AV/IV CT, nml QTc, Q-waves in III and aVF, no acute change compared with 03/21/19. ED MD has reviewed and interpreted this EKG. Re-Evaluation - Re-Evaluation First Eval Re-Evaluation Time: 11:13 Change: Unchanged Comment: Pt is not oriented. Continues to state "burning". Pt goes to the wound clinic, last went 04/10/19. Wounds on coccyx are covered by tegoderm gauze, 20 mm x 7 mm left of midline , and 20 mm x 10 mm on right, Diffuse redness 15 cm x 7 cm. Uses clotrimazole cream at home every time dressing is changed on sacral ulcers, which occurs at least once per day at home by . Saw Dr. Nur on 04/19/19, who ordered MRI for pt. Pt is right handed but will not use her right arm, and pt was having issues with her eyes. Altered Mental Statu Course/Dx - Course Course Of Treatment: LEVEL 5 CAVEAT - AMS. Pt with 40+ year hx of MS, does self catheterization, multiple episodes of urosepsis, presents with altered mental status and 2 day hx of white substance apparent in catheters used by pt. Pt without fever at home. Pt does not meet SIRS criteria on admission. Pt is extremely difficult venous access, so IV US team utilitzed to establishe access and draw bloods and blood cultures. Sepsis protocol initiated despite no SIRS criteria. One BP in the 70's with MAP of <55 is a false BP, so pt is not septic by definition. However pt will be brought in for admission and IV antibiotics due to frequent hx of the same, and her altered mental status. Physical exam findings are Ill-appearing, moderate pain distress (states burning ), extremities cold to touch, except left foot which is reddened and warm. Pt has 2 sacral decubiti that were assessed and re-dressed in the ED. Pt prefers eyes closed but opens to command, dry oral mucosa, dental partial plate in place , lungs are with diminished breath sounds throughout. Pt states only its burning when asked questions, moves all extremities except her right forearm, follows most commands, facial symmetry, and speech clear although repetitive and limited. Abdomen is benign. Franco catheter is placed upon admission and is draining cloudy urine. GCS is 13. An EKG at 0834 reveals sinus rhythm 80 bpm, nml AV/IV CT, nml QTc, Q-waves in III and aVF,, no acute changes, no change compared with 03/21/19. UA obtained. Urine protein is 2+ , urine blood is 1+, Ur leukocyte esterase is 3+, Ur squamous epith cells are present, urine glucose is 3+. Bloodwork obtained. WBC is normal. Chloride is 98, BUN is 25, Creatinine is 1.02, Glucose is 307, C-Reactive Protein is 119. CXR reveals, per radiologist, IMPRESSION: 1. NO ACUTE CARDIOPULMONARY PROCESS BY RADIOGRAPH 2. HYPOINFLATED LUNGS. Renal US reveals, per radiologist, IMPRESSION: 1. The suspected left ureteral stent is poorly imaged. There is no hydronephrosis. 2. Punctate nonobstructive calculi are redemonstrated in the lower pole of left kidney. Abdomen/Pelvis CT reveals, per radiologist. 1. NONOBSTRUCTING LEFT RENAL CALCULUS. STATUS POST PLACEMENT OF A LEFT URETERAL STENT. CATHETER. THERE IS NO EVIDENCE FOR HYDRONEPHROSIS. 2. AIR WITHIN THE URINARY BLADDER LIKELY SECONDARY TO FRANCO CATHETER PLACEMENT. 3. MILDLY ENLARGED RETROPERITONEAL LYMPH NODES, UNCHANGED. 4. CALCIFIED UTERINE FIBROID. 5. STATUS POST CHOLECYSTECTOMY. Pt is not oriented. Pt goes to the wound clinic, last went 04/10/19. Wounds on coccyx is covered by tegaderm gauze, 20 mm x 7 mm left of midline , and 20 mm x 10 mm on right, Diffuse redness 15 cm x 7 cm. Uses clotrimazole cream at home every time dressing is changed, which occurs once per day. Pt saw Dr. Nur on 04/19/19, who ordered MRI for pt as an outpatient, but it has not been scheduled at this time. Pt is right handed but will not use her right arm, and pt was having issues with her eyes (right hemianopia per Dr. Nur). Dr. Nur is concerned the pt may have a mass or abscess with the new probable right hemianopia and right willie-neglect that was noted on her office visit with him on 04/19/19, when he ordered an outpatient MRI which had not been able to be scheduled yet. The brain MRI that he had wanted as an outpatient has been ordered from the ED. It will be done without contrast first per Dr. Nur, and if needed, will be repeated with contrast. Pt medications reviewed this visit. Nurses notes reviewed. Allergies noted. In the ED course the patient was given rocephin 1gm IV for probable UTI and a franco catheter was inserted which drained well, but had cloudy urine. Pt's sacral decubitus dressings were changed and Clotrimazole 1% cream was applied to the surrounding sacral area. Sepsis protocol fluids were given, however pt did not meet the criteria for sepsis while in the ED. 11:[address] Nur, will come and evaluate, and advises MRI Brain without contrast. CT brain is not needed in addition to MRI. . He agrees with admission , and he will consult. 11:43 - Discussed case with Dr. Lopes who accepts pt for admission. Patient will be admitted. The patient's is agreeable with this plan. - Diagnoses Differential Diagnosis/HQI/PQRI: CVA, Intracranial Bleed, Sepsis, Other - UTI, brain mass, brain abscess Provider Diagnoses: UTI (urinary tract infection), Altered mental status, History of ureter stent, Right arm weakness, Sacral decubitus ulcer, stage II, Multiple sclerosis, Neurogenic bladder, chronic wounds - Provider Notifications Discussed Care Of Patient With: Cristian Nur Time Discussed With Above Provider: 11:32 Instructed by Provider To: Other - 11:[address] Nur, will come and evaluate, advises MRI Brain without contrast.He agrees with admission and he will consult. 11:43 - Discussed case with Dr. Lopes who accepts pt for admission. - Critical Care Time Critical Care Time: 30-74 min Discharge ED - Sign-Out/Discharge Documenting (check all that apply): Patient Departure - Admit Patient Received Moderate/Deep Sedation with Procedure: No - Discharge Plan Condition: Stable Disposition: ADMITTED TO [facility] - Billing Disposition and Condition Condition: STABLE Disposition: Admitted to [facility] - Attestation Statements Document Initiated by Latosha: Yes Documenting Scribe: Anushka Barone Provider For Whom Latosha is Documenting (Include Credential): Dr. Mira Cosby MD Scribe Attestation: Anushka Graham scribed for Dr. Mira Cosby MD on 04/28/19 at 0031. Scribe Documentation Reviewed: Yes Provider Attestation: The documentation as recorded by the Anushka smith accurately reflects the service I personally performed and the decisions made by nc, Dr. Mira Cosby MD Status of Scribe Document: Viewed
[2019-04-26 09:22] LABS: Urine Appearance Turbid; Urine Bacteria Absent (Absent); Urine Bilirubin Negative (Negative); Urine Blood 1+ (Negative); Urine Color Yellow; Urine Glucose 3+(>=500 mg/dL) (Negative); Urine Ketones Negative (Negative); Urine Nitrite Negative (Negative); Urine Protein 2+(100 mg/dL) (Negative); Urine Red Blood Cell 3+(>10/hpf) (Absent); Urine Specific Gravity 1.014 (1.010-1.030); Urine Squamous Epithelial Cell Present (Absent); Urine Urobilinogen Negative (Negative); Urine White Blood Cell 3+(>20/hpf) (Absent)
[2019-04-26 10:39] LABS: ABS Eosinophils 0.2 10^3/ul (0-0.6); ABS Lymphocytes 2.1 10^3/ul (1.0-4.8); ABS Monocytes 1.2 10^3/ul (0-0.8); ABS Neutrophils 6.3 10^3/ul (1.5-7.7); Hematocrit 40 % (35-47); Hemoglobin 13.7 g/dL (12.0-16.0); Lymphocyte % 21.4 %; Mean Corpuscular HGB Conc 34 g/dL (31-36); Mean Corpuscular Hemoglobin 31 pg (27-31); Mean Corpuscular Volume 90 fL (80-97); Mean Platelet Volume 9.5 fL (7.4-10.4); Nucleated Red Blood Cells % 0.1; Platelet Count 192 10^3/uL (150-450); Red Blood Count 4.47 10^6 /uL (3.70-4.87); Red Cell Distribution Width 16 % (10-15); White Blood Count 9.9 10^3/uL (3.5-10.8)
[2019-04-26 10:57] LABS: Albumin 4.2 g/dL (3.2-5.2); Albumin/Globulin Ratio 1.1 (1-3); BUN/Creatinine Ratio 24.5 (8-20); Calcium 10.3 mg/dL (8.6-10.3); EGFR African American 65.2 (>60); EGFR Non-African American 53.9 (>60); Potassium 3.9 mmol/L (3.5-5.0); Total Bilirubin 0.4 mg/dL (0.2-1.0); Total Protein 8.2 g/dL (6.4-8.9); Troponin I 0.01 ng/mL (<0.04)
[2019-04-26 11:00] LABS: Activated Partial Thrombo Time 31.2 seconds (26.0-38.0); INR 1.01 (0.82-1.09)
[2019-04-26] MEDS ORDERED: Clotrimazole 1% CREAM* 30 GM TOPICAL ONE (11:20)
[2019-04-26 12:31] LABS: Erythrocyte Sed Rate 88 mm/Hr (0-29)
[2019-04-26] MEDS ORDERED: HYDROcodone/ACETAMIN 5-325 MG* 1 TAB PO PRN (13:21)
[2019-04-26] MEDS ORDERED: Acetaminophen TAB* 325 MG PO PRN (13:21)
[2019-04-26] MEDS ORDERED: Dextrose 50% VIAL 50 ml IV PUSH PRN (13:23)
[2019-04-26] MEDS ORDERED: NS 0.9% 1000 ML** 1,000 ML IV SCH (13:30)
[2019-04-26] MEDS ORDERED: Enoxaparin(*) 40 MG/0.4 ML SYR SUBCUT SCH (14:00)
[2019-04-26] MEDS ORDERED: LORazepam INJ* 2 MG/ML 1 ML VIAL IV PUSH ONE (15:26)
[2019-04-26] MEDS ORDERED: Lorazepam PYXIS KEY PRN (15:26)
--- NOTE | 2019-04-26 16:00 | HP ---
CC: Dr. Olivares; Dr. Nur; Dr. Eaton * HISTORY AND PHYSICAL: DATE OF ADMISSION: 04/26/19 PRIMARY CARE PROVIDER: Dr. Olivares OTHER PROVIDERS: Dr. Nur, Dr. Eaton. ATTENDING PHYSICIAN: Dr. Menon * (dictated by ROSY Garcia). CHIEF COMPLAINT: 1. Altered mental status. 2. Right arm neglect. HISTORY OF PRESENT ILLNESS: Ms. Em is a 69-year-old female with a past medical history of MS, neurogenic bladder who self straight caths 5 times per day, nephrolithiasis with left ureteral stent placed in February 2019, and recurrent UTIs who presented to the ER today accompanied by her . She is awake and alert but does not respond to questioning. He notes that she is disoriented, "babbles" and cannot function. She has difficulty moving herself including sitting up. She has been somewhat agitated and is unsure of her location when she is usually oriented to self and location. She has had decreased appetite since yesterday. Her states that this is a common presentation when she has a UTI. The patient has been hospitalized multiple times for UTIs. Urine cultures revealed multiple different organisms. She has a history of susceptibility to ceftriaxone and tolerates this antibiotic with good results. She has a left ureteral stent in place that was placed in February of [address] Eaton. She has an appointment with him at the beginning of April. The patient's notes that she has had "right arm trouble" for the last approximately 2 weeks. He notes that she is refusing to use the arm. He also notes that she is not opening her right eye and she has not been reading as much , which is something she typically enjoys. He states that she has been saying that she cannot see well out of the right eye. Her hand-eye coordination has declined. She does follow with Dr. Nur, who she saw on 04/18/19. He recommended MRI of the brain. In the ER, the patient received a full workup including labs which revealed a glucose of 307, CRP of 119. Urinalysis had 3+ leukocyte esterase, 3+ red blood cells without bacteria or nitrites. CT of the abdomen and pelvis showed nonobstructing left renal calculus without hydronephrosis and a left ureteral stent. Renal ultrasound showed no hydro, no obstruction, and calculus in the lower pole of the left kidney. Chest x-ray revealed no acute process. In the ER, the patient was given ceftriaxone 1 g, clotrimazole, and 1.8 L IV fluid bolus. Hospitalist team was asked to evaluate the patient for admission. PAST MEDICAL HISTORY: 1. Multiple sclerosis. 2. Neurogenic bladder. 3. Nephrolithiasis with a left ureteral stent placed in [place], February 2019. 4. Hypertension. 5. Hyperlipidemia. 6. Diabetes mellitus. 7. Seizure disorder. 8. Recurrent UTIs. PAST SURGICAL HISTORY: Left ureteral stent in February 2019, [place]; multiple lithotripsies; left breast lumpectomy. HOME MEDICATIONS: 1. Acetaminophen 650 mg p.o. q.6 hours p.r.n. pain. 2. Arimidex 1 mg p.o. daily. 3. Atorvastatin 40 mg p.o. at bedtime. 4. Baclofen 20 mg p.o. 4 times a day. 5. Tegretol 200 mg p.o. b.i.d. 6. Lotrisone cream 1 application topically daily. 7. Glipizide 10 mg p.o. b.i.d. 8. Hydrocodone/acetaminophen 5/325 mg 1 tab p.o. q.6 hours p.r.n. pain, MDD 4. 9. Losartan 100 mg p.o. daily. 10. Metoprolol succinate 100 mg p.o. daily. 11. Multivitamin/minerals 1 tab daily. 12. Oxybutynin 5 mg p.o. b.i.d. 13. Pioglitazone 30 mg p.o. daily. DRUG ALLERGIES: LISINOPRIL, swelling; SULFA, unknown reaction. FAMILY HISTORY: Obtained from chart review: father had diabetes mellitus. Mother had leukemia which was cause of . Paternal grandmother had diabetes mellitus. SOCIAL HISTORY: The patient has a short, remote history of tobacco use. She smoked for approximately 1 year less than a pack per day. She has not smoked in over 50 years. She does not use alcohol. She does not work. She lives with her . In the event that she is unable to make her own medical decisions, she has appointed her who is her power of insurance defense attorney, Tyrel Em , to be her surrogate decision maker. REVIEW OF SYSTEMS: Review of systems was attempted, but the patient is unable to respond to questions. PHYSICAL EXAMINATION GENERAL: Ms. Em is a well-developed, well-nourished, slightly overweight 69- year- old white female who is lying flat in bed. She is awake and alert, but does not respond to questioning. She follows some commands. VITAL SIGNS: Temperature 97.5 temporal, heart rate 75, respiratory rate 21, oxygen saturation 95% on room air, blood pressure 161/78. HEENT: Unable to assess visual nuñez as the patient is uncooperative. PERRL. The patient is unable to follow instructions when asked to follow finger with eyes. Nonicteric sclerae. Hearing appears to be grossly intact. Oral mucous membranes are moist without lesions. The pharynx is clear. Face is symmetrical , remains symmetrical with smiling, but patient follows no other commands. RESPIRATORY: Symmetrical chest expansion without use of accessory muscles. Lungs clear to auscultation bilaterally, although the patient is unable to follow instructions for deep breathing. There is no digital clubbing or cyanosis. CARDIOVASCULAR: Regular rate and rhythm with S1, S2 present without murmurs, rubs, clicks, or gallops. There is no JVD. There is no peripheral edema. ABDOMEN: Bowel sounds noted in all quadrants. The abdomen is soft, nontender to palpation except for suprapubic tenderness. No CVA tenderness. MUSCULOSKELETAL: Muscle atrophy in bilateral upper and lower extremities. The patient is able to wiggle toes on bilateral feet, but she is unable to lift lower extremities against gravity. Unable to further assess muscle strength in lower extremities. The patient's right canceling and cutting control clerk strength is less than left. She is able to move bilateral upper extremities against gravity, but unable to further assess muscle strength. NEURO: The patient is awake. She is alert. She is not responding to orientation questions. Unable to assess cranial nerves. DIAGNOSTIC STUDIES AND LABORATORY DATA: BUN 25, creatinine 1.02, glucose 307. CRP 119. Urinalysis; 2+ protein, 1+ blood, 3+ LE, 3+ wbc's, 3+ rbc's, 3+ glucose. Chest x-ray, impression: No acute cardiopulmonary process by radiograph. Hypoinflated lungs. Left renal ultrasound, impression: Suspected left ureteral stent is poorly imaged. There is no hydronephrosis. Punctate nonobstructive calculi are demonstrated in the lower pole of the left kidney. CT abdomen and pelvis, impression: Nonobstructing left renal calculus, status post placement of a left ureteral stent catheter. There is no evidence for hydronephrosis. Air within the urinary bladder likely secondary to Mcwilliams catheter placement. Mildly enlarged retroperitoneal lymph nodes, unchanged. Calcified uterine fibroid. Status post cholecystectomy. ASSESSMENT AND PLAN: Ms. Em is a 69-year-old female with a past medical history of multiple sclerosis, neurogenic bladder, nephrolithiasis with left stent, recurrent urinary tract infections, hypertension, hyperlipidemia who presented to the ER today with her who reports that she has some altered mental status as well as right arm neglect. The patient will be admitted observation for: 1. Altered mental status. This is concerning, as the patient has associated right eye vision changes, right arm neglect, and alteration in mental status. Please see below for further discussion. Dr. Nur has been consulted and recommends MRI of the brain, which has been ordered. He will see her in consultation. This is also a common presentation when the patient has a urinary tract infection and urine sample reveals 3+ LE without nitrates or bacteria. Previous urine cultures revealed organisms that are sensitive to ceftriaxone. Repeat urine cultures are pending. Blood cultures have been ordered and are pending. She has been given 1 dose of ceftriaxone in the ER. She will be continued on this while inpatient. Urology has been consulted and they recommend treatment and follow up as scheduled with Dr. Eaton on 05/09/19. 2. Right arm neglect. The patient has been following with Dr. Nur for right arm neglect and right vision changes. He has recommended MRI of the brain. This has been ordered. Neurology consult has also been ordered. 3. Multiple sclerosis. Continue home medication, baclofen. 4. Hypertension. Continue home medications, losartan and metoprolol. 5. Hyperlipidemia. Continue atorvastatin. 6. Diabetes mellitus. We will hold the patient's home medications glipizide and pioglitazone. She will be placed on sliding scale a.c. lispro. 7. DVT prophylaxis: According to the DVT Risk Assessment, the patient scores 3 , placing her at high risk. She will be started on Lovenox. TIME SPENT: Approximately 60 minutes was spent on this admission, greater than half that time was spent with the patient and her obtaining history, performing physical, and reviewing the plan of care. The case has been reviewed with my attending, Dr. Menon, who is in agreement with the plan of care. NATY PACHECO, ROSY [id number]/[facility] #: [id number] MTDDede
[2019-04-26] MEDS ORDERED: hydrALAZINE IV* 20 MG/ML VIAL IV SLOW PU ONE (16:07)
--- NOTE | 2019-04-26 16:33 | CONS ---
NEUROLOGY CONSULTATION: DATE OF CONSULT: 04/26/19 HOSPITALIST: ROSY Garcia LOCATION: She is in emergency room, to be admitted to room 451. CHIEF COMPLAINT: Diminished responsiveness. HISTORY OF PRESENT ILLNESS: Lucretia Em is a 69-year-old woman, well known to me for years of treatment of multiple sclerosis. She had relapsing-remitting disease at one point in time, but developed secondary progressive disease over time. When I last saw her in the office just recently, she developed a new syndrome. Specifically, she had developed neglect of her right side. She is right-handed and had not been using her right arm progressively for at least a couple of months. When I saw her in the office, she had visual neglect of the right side as well. She may have had a hemianopia. Because of the atypical neurological deficits in terms of her multiple sclerosis, I ordered an MRI scan of the brain. This morning, she was extremely confused and agitated. Her brought her into the emergency room. She was found to have another urinary tract infection and was given hydration and antibiotics. I spoke to Dr. Cosby on the phone and recommended she get an MRI scan of her brain as I had intended to be done as an outpatient. She is now to be admitted. PAST MEDICAL HISTORY: Notable for nephrolithiasis, recurrent urinary tract infections, ureteral stent, multiple sclerosis, hyperlipidemia, hypertension. MEDICATIONS: At home consist of: 1. Sliding scale insulin. 2. Baclofen 20 mg p.o. 4 times a day. 3. Atorvastatin 40 mg p.o. daily. 4. Arimidex 1 mg p.o. daily. 5. Carbamazepine 200 mg p.o. b.i.d. 6. Pioglitazone 30 mg p.o. daily. 7. Glipizide XL 10 mg p.o. b.i.d. 8. Oxybutynin 5 mg p.o. b.i.d. 9. Hydrocodone 5/325 one p.o. q.6 hours as needed for pain. ALLERGIES: She is allergic to LISINOPRIL and SULFA DRUGS. REVIEW OF SYSTEMS: Mainly notable for multiple infections, nephrolithiasis, and her neurological deterioration as described in the history of present illness. PHYSICAL EXAMINATION: Lucretia was just briefly examined in the emergency room. Temperature is 97.2, blood pressure 171/87, heart rate is in the 60s. She is awake and repeats "I am hungry." She follows less than 50% of commands. She is awake. She neglects her vision on the right side, but I can get her to respond for finger counting. She responds to visual threat from the left, but not the right. The right arm has increased muscle tone and she holds the elbow flexed and the hand assisted. However, it is not severely spastic or contracted. When asked to raise her hands, she raises her left one only. She perseverates verbally, but also motorically with motor tasks. DIAGNOSTIC STUDIES/LAB DATA: Laboratory data today notable for a normal CBC, sedimentation rate is 88. Urinalysis is notable for 3+ leukocyte esterase, 2+ protein, 3+ white blood cells, 3+ red blood cells, 3+ glucose. Chemistries are notable for a glucose of 307 today. C-reactive protein is markedly elevated at 119. BUN is 25 and creatinine 1.02. Liver enzymes are normal. PTT and INR are normal. She had a CT scan of the brain without contrast on 03/21/19 when she presented with lethargy and had another urinary tract infection. There were multiple areas of hypoattenuation consistent with her diagnosis of multiple sclerosis. I reviewed the images and I do not see any evidence of a mass. Official interpretation was no acute intracranial abnormality, moderate chronic small vessel ischemic disease is likely. IMPRESSION AND PLAN: I am concerned that Lucretia might have a mass. 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 She could have an abscess given her recurrent infections. She also had breast cancer in the past and so recurrence of breast cancer with metastasis is another concern. She is scheduled to have an MRI of the brain today. Initially, it will be without contrast. If a contrasted scan is needed, we can arrange for that tomorrow after we make sure she is well hydrated. I have written for some lorazepam to be given on-call to the MRI scanner as her does not think she would sit still in the MRI scanner for a very long. Given her significant cognitive deficits, I agree. I will follow her along with you. [id number]/[facility] #: [id number] [facility] MEDICAL CENTERDede
[2019-04-26] MEDS: Enoxaparin(*) 40 MG/0.4 ML SYR SUBCUT SCH (16:47)
[2019-04-26] MEDS: BETAMETHASONE TOPICAL SCH (18:14)
[2019-04-26] MEDS: CLOTRIMAZOLE TOPICAL SCH (18:14)
[2019-04-26] MEDS: Baclofen TAB* 20 MG PO SCH ×2 (18:59→20:55)
[2019-04-26] MEDS: Insulin LISPRO* 1 UNITS UNIT SUBCUT SCH (18:59)
[2019-04-26] MEDS: Oxybutynin TAB* 5 MG PO SCH (20:54)
[2019-04-26] MEDS: Atorvastatin* 40 MG TAB PO SCH (20:55)
[2019-04-26] MEDS: carBAMazepine TAB(*) 200 MG PO SCH (20:55)
[2019-04-27 07:39] LABS: BUN/Creatinine Ratio 21.8 (8-20); Calcium 8.9 mg/dL (8.6-10.3); EGFR African American 88.9 (>60); EGFR Non-African American 73.4 (>60); Potassium 3.5 mmol/L (3.5-5.0)
[2019-04-27 07:50] LABS: ABS Eosinophils 0.2 10^3/ul (0-0.6); ABS Lymphocytes 1.8 10^3/ul (1.0-4.8); ABS Monocytes 0.9 10^3/ul (0-0.8); ABS Neutrophils 5.1 10^3/ul (1.5-7.7); Eosinophil % 2.3 %; Hematocrit 38 % (35-47); Hemoglobin 12.7 g/dL (12.0-16.0); Lymphocyte % 22.2 %; Mean Corpuscular HGB Conc 34 g/dL (31-36); Mean Corpuscular Hemoglobin 30 pg (27-31); Mean Corpuscular Volume 90 fL (80-97); Mean Platelet Volume 9.9 fL (7.4-10.4); Platelet Count 176 10^3/uL (150-450); Red Blood Count 4.21 10^6 /uL (3.70-4.87); Red Cell Distribution Width 16 % (10-15)
[2019-04-27] MEDS: Insulin LISPRO* 1 UNITS UNIT SUBCUT SCH ×3 (08:33→17:30)
[2019-04-27] MEDS: Multivitamins/Minerals TAB PO SCH (08:35)
[2019-04-27] MEDS: Losartan TAB* 25 MG PO SCH (08:35)
[2019-04-27] MEDS: carBAMazepine TAB(*) 200 MG PO SCH ×2 (08:36→20:18)
[2019-04-27] MEDS: Metoprolol Succinate XL TAB* 100 MG PO SCH (08:36)
[2019-04-27] MEDS: Baclofen TAB* 20 MG PO SCH ×4 (08:37→20:18)
[2019-04-27] MEDS: Oxybutynin TAB* 5 MG PO SCH ×2 (08:37→20:18)
[2019-04-27] MEDS: CLOTRIMAZOLE TOPICAL SCH (10:22)
[2019-04-27] MEDS: BETAMETHASONE TOPICAL SCH (10:22)
[2019-04-27] MEDS: cefTRIAXone(*) 1 GM in NS 0.9% 50 ML* 50 ML IVPB SCH (11:49)
[2019-04-27] MEDS ORDERED: LORazepam INJ* 2 MG/ML 1 ML VIAL IV PUSH ONE (11:50)
[2019-04-27] MEDS ORDERED: Gadoteridol* (CONTRAST) 279.3 MG/ML 10 ML IV ONE (11:55)
[2019-04-27] MEDS: CMCS:Anastrozole (NF) 1 MG TAB PO SCH (11:56)
[2019-04-27] MEDS ORDERED: Docusate CAP* 100 MG PO PRN (12:16)
--- NOTE | 2019-04-27 12:19 | PN ---
Subjective Date of Service: 04/27/19 Interval History: Patient at times does not follow directions appropriately, and at times echos my words. For example, I ask her what city we're in and she says "city" and when prompted again tells me she's in [place]. Additionally, Chandrika RN tells patient she'll be back with applesauce for her meds and patient echos "applesauce." tells me the patient's mentation is improved today but still not to her baseline. Patient has not had bowel movement in 4 days. Feels bloated. Denies difficulty breathing, fever/chills, chest pain, nausea, vomiting. Objective Active Medications: Acetaminophen (Tylenol Tab*) 650 mg PO Q6H PRN PRN Reason: pain/fever Hydrocodone Bitart/Acetaminophen ([place] 5-325 Tab*) 1 tab PO Q6H PRN PRN Reason: PAIN Anastrozole (Arimidex (Nf)) 1 mg PO 1200 [facility] Last Admin: 04/27/19 11:56 Dose: 1 mg Atorvastatin Calcium (Lipitor*) 40 mg PO BEDTIME [facility] Last Admin: 04/26/19 20:55 Dose: 40 mg Baclofen (Lioresal Tab*) 20 mg PO QID [facility] Last Admin: 04/27/19 08:37 Dose: 20 mg Betamethasone/Clotrimazole (Lotrisone Cream*) 1 applic TOPICAL DAILY [facility] Last Admin: 04/27/19 10:22 Dose: 1 applic Carbamazepine (Tegretol Tab(*)) 200 mg PO BID [facility] Last Admin: 04/27/19 08:36 Dose: 200 mg Dextrose (Dextrose 50% Vial 50 Ml*) 25 ml IV PUSH .FOR FS < 60 - SS PRN PRN Reason: FS < 60 Enoxaparin Sodium (Lovenox(*)) 40 mg SUBCUT 1700 [facility] Last Admin: 04/26/19 16:47 Dose: 40 mg Ceftriaxone Sodium 1 gm/ (Sodium Chloride) 50 mls @ 100 mls/hr IVPB Q24H [facility] Last Admin: 04/27/19 11:49 Dose: 100 mls/hr Insulin Human Lispro (Humalog*) 0 units SUBCUT AC [facility]; Protocol Last Admin: 04/27/19 11:48 Dose: 10 units Losartan Potassium (Cozaar Tab*) 100 mg PO DAILY [facility] Last Admin: 04/27/19 08:35 Dose: 100 mg Metoprolol Succinate (Toprol Xl Tab*) 100 mg PO DAILY WITH MEAL [facility] Last Admin: 04/27/19 08:36 Dose: 100 mg Miscellaneous (Ativan Pyxis Maldonado) 1 ea N/A .ATIVAN IV MALDONADO PRN PRN Reason: PYXIS MALDONADO Multivitamins/Minerals (Theragran/Minerals Tab*) 1 tab PO QAM [facility] Last Admin: 04/27/19 08:35 Dose: 1 tab Oxybutynin Chloride (Ditropan Tab*) 5 mg PO BID [facility] Last Admin: 04/27/19 08:37 Dose: 5 mg Vital Signs - 8 hr 04/27/19 04/27/19 04/27/19 04:30 07:15 08:00 Temperature 98.3 F 98 F Pulse Rate 89 86 Respiratory 16 16 Rate Blood Pressure 145/90 127/78 (mmHg) O2 Sat by Pulse 97 97 97 Oximetry Oxygen Devices in Use Now: None Appearance: Elderly white female, laying in bed, apperaing in NAD, at bedside Eyes: No Scleral Icterus, PERRLA, - - unable to appropriately participate in exam to evaluate nystagmus, tells me she has diplopia Ears/Nose/Mouth/Throat: Mucous Membranes Moist Neck: NL Appearance and Movements; NL JVP Respiratory: Symmetrical Chest Expansion and Respiratory Effort, Clear to Auscultation Cardiovascular: NL Sounds; No Murmurs; No JVD, RRR Abdominal: - - abdomen is soft, nontender, nondistended Extremities: No Edema, No Clubbing, Cyanosis Skin: - - skin is warm, dry Neurological: - - alert, oriented to self only; sensation to light touch intact and equal; able to move RUE and RLE, but minimally compared to left side; R plantar flexion is 1/5, L plantar flexion is 4/5; R air dispatcher strength is 3/5 and L is 5/5 Result Diagrams: 04/27/19 07:01 04/27/19 07:01 Microbiology and Other Data: Microbiology 04/26/19 10:18 Aerobic Blood Culture - Preliminary Blood Venous No Growth Day 1 Anaerobic Blood Culture - Preliminary No Growth Day 1 04/26/19 10:18 Aerobic Blood Culture - Preliminary Blood Venous No Growth Day 1 Anaerobic Blood Culture - Preliminary No Growth Day 1 Assess/Plan/Problems-Billing Assessment: 69 yo female with PMHx neurogenic bladder who self-caths, HTN, HLD, MS, DMT2, seizure disorder presents with right arm neglect and altered mental status. - Patient Problems (1) Ruddy-neglect of right side Current Visit: Yes Status: Acute Code(s): R41.4 - NEUROLOGIC NEGLECT SYNDROME SNOMED Code(s): 372367214 Comment: -patient with bilateral LE weakness at baseline 2/2 MS, follows with Dr. Nur outpatient, appreciate his input -MRI brain without contrast without acute findings -MRI brain with contrast pending (2) Altered mental state Current Visit: No Status: Acute Priority: High Code(s): R41.82 - ALTERED MENTAL STATUS, UNSPECIFIED SNOMED Code(s): 351534578 Comment: - Improving per , but not at baseline; does have cognitive decline at baseline - Suspect possible metabolic encephalopathy related to UTI, though urine culture is pending - Patient doesn't follow commands appropriately at times and also exhibits some echolalia at times, disoriented as well - Acute CVA ruled out with MRI brain (3) Abnormal urinalysis Current Visit: Yes Status: Acute Code(s): R82.90 - UNSPECIFIED ABNORMAL FINDINGS IN URINE SNOMED Code(s): 398405597 Comment: -positive urinalysis on admission -frequent UTIs, patient straight caths daily -urine culture pending -continue ceftriaxone (4) DM2 (diabetes mellitus, type 2) Current Visit: No Status: Chronic Priority: Medium Comment: - Not well controlled, increased Lantus 18 units- this admission - Holding home glipizide and pioglitazone - Continue Lispro SS - A1c pending (5) Multiple sclerosis Current Visit: No Status: Chronic Priority: High Code(s): G35 - MULTIPLE SCLEROSIS SNOMED Code(s): 23702228 Comment: - Continue Baclofen and Tegretol (6) DVT prophylaxis Current Visit: No Status: Acute Priority: Low Code(s): BXN8955 - SNOMED Code(s): 997117168 Comment: - lovenox SQ (7) Full code status Current Visit: No Status: Acute Code(s): Z78.9 - OTHER SPECIFIED HEALTH STATUS SNOMED Code(s): 574178489 Comment:
[2019-04-27] MEDS: Senna TAB 8.6 mg* TAB PO SCH (12:50)
[2019-04-27 13:14] LABS: Carbamazepine 4.5 mcg/mL (4.0-12.0)
[2019-04-27] MEDS: Enoxaparin(*) 40 MG/0.4 ML SYR SUBCUT SCH (17:30)
[2019-04-27] MEDS: Atorvastatin* 40 MG TAB PO SCH (20:17)
[2019-04-27] MEDS: Docusate CAP* 100 MG PO SCH (20:18)
[2019-04-28 04:45] LABS: Calcium 8.9 mg/dL (8.6-10.3); EGFR African American 83.9 (>60); EGFR Non-African American 69.3 (>60); Potassium 3.6 mmol/L (3.5-5.0)
[2019-04-28] MEDS: Insulin LISPRO* 1 UNITS UNIT SUBCUT SCH ×3 (08:17→17:25)
[2019-04-28] MEDS: Losartan TAB* 25 MG PO SCH (08:18)
[2019-04-28] MEDS: Baclofen TAB* 20 MG PO SCH ×4 (08:18→20:45)
[2019-04-28] MEDS: Oxybutynin TAB* 5 MG PO SCH ×2 (08:19→20:45)
[2019-04-28] MEDS: Senna TAB 8.6 mg* TAB PO SCH (08:19)
[2019-04-28] MEDS: Docusate CAP* 100 MG PO SCH ×2 (08:19→20:45)
[2019-04-28] MEDS: carBAMazepine TAB(*) 200 MG PO SCH ×2 (08:19→20:45)
[2019-04-28] MEDS: Multivitamins/Minerals TAB PO SCH (08:19)
[2019-04-28] MEDS: Metoprolol Succinate XL TAB* 100 MG PO SCH (08:19)
[2019-04-28] MEDS: CLOTRIMAZOLE TOPICAL SCH (10:55)
[2019-04-28] MEDS: BETAMETHASONE TOPICAL SCH (10:55)
[2019-04-28] MEDS: cefTRIAXone(*) 1 GM in NS 0.9% 50 ML* 50 ML IVPB SCH (11:12)
[2019-04-28] MEDS: CMCS:Anastrozole (NF) 1 MG TAB PO SCH (12:24)
--- NOTE | 2019-04-28 14:36 | CONS ---
NEUROLOGY FOLLOWUP CONSULTATION: DATE OF FOLLOWUP: 04/28/19 HOSPITALIST: ROSY Davis LOCATION: She is an inpatient in [facility]. CLINICAL HISTORY: Multiple sclerosis, cognitive decline, urinary tract infection. INTERVAL HISTORY: Since yesterday, Lucretia is about the same. She is more alert and awake than she was when she came in. She is being treated for urinary tract infection. She continues to neglect the right arm. MEDICATIONS: Medications are reviewed and she is on: 1. Arimidex 1 mg p.o. q. day. 2. Atorvastatin 40 mg p.o. q. day. 3. Baclofen 20 mg p.o. 4 times a day. 4. Carbamazepine 200 mg p.o. b.i.d. 5. Ceftriaxone 1 g IV q. 24 hours. 6. Colace 100 mg p.o. b.i.d. 7. Lovenox 40 mg subcutaneous q. day. 8. Sliding scale insulin. 9. Cozaar 100 mg p.o. q. day. 10. Metoprolol XL 100 mg p.o. q. day. 11. Oxybutynin 5 mg p.o. b.i.d. PHYSICAL EXAMINATION: On exam, she is well hydrated. Temperature 97.5, blood pressure 108/70, heart rate 79, respiratory rate is 18, and oxygen saturation is 94% on room air. Neurological Exam: Eye movements are full. She has a right homonymous hemianopia. Facial musculature is symmetric. She holds the right arm flexed and the hand close. She is able to raise both arms to command. When asked to identify her left or right hand, she just repeats herself. DIAGNOSTIC STUDIES/LAB DATA: MRI of the brain with contrast was performed and does not reveal any enhancing lesions. It is a little bit better scan in the sense she is more symmetrically in the scanner. She appears to me to have greater atrophy of the left hemisphere, particularly posteriorly. Other lab tests notable for point of care glucose today of 264 this morning and 281 by mid afternoon. IMPRESSION AND PLAN: Impression is that of secondary progression of multiple sclerosis and urinary tract infection. She has a very unusual right side neglect syndrome which would be very atypical for multiple sclerosis. I Wonder if she is developing superimposed cortical basal ganglionic degeneration. It is pretty much impossible to be certain given her advanced multiple sclerosis. There is no specific treatment. Her urinary tract infection is being treated. There is nothing specific for her multiple sclerosis that I would recommend. I am not sure how long her can continue to care for her at home. No other therapeutic recommendations at this time. [id number]/[facility] #: [id number] MTDD
[2019-04-28] MEDS: Cefepime 2 GM in Dextrose(*) 2 GM/50 ML BAG IV SCH (17:25)
[2019-04-28] MEDS: Enoxaparin(*) 40 MG/0.4 ML SYR SUBCUT SCH (17:25)
--- NOTE | 2019-04-28 18:55 | PN ---
Subjective Date of Service: 04/28/19 Interval History: Patient continues to not voluntarily use her right arm. Patient denies fever/ chills, difficulty breathing, chest pain, abd pain. Objective Active Medications: Acetaminophen (Tylenol Tab*) 650 mg PO Q6H PRN PRN Reason: pain/fever Hydrocodone Bitart/Acetaminophen ([place] 5-325 Tab*) 1 tab PO Q6H PRN PRN Reason: PAIN Anastrozole (Arimidex (Nf)) 1 mg PO 1200 [facility] Last Admin: 04/28/19 12:24 Dose: 1 mg Atorvastatin Calcium (Lipitor*) 40 mg PO BEDTIME [facility] Last Admin: 04/27/19 20:17 Dose: 40 mg Baclofen (Lioresal Tab*) 20 mg PO QID [facility] Last Admin: 04/28/19 18:27 Dose: 20 mg Betamethasone/Clotrimazole (Lotrisone Cream*) 1 applic TOPICAL DAILY [facility] Last Admin: 04/28/19 10:55 Dose: 1 applic Carbamazepine (Tegretol Tab(*)) 200 mg PO BID [facility] Last Admin: 04/28/19 08:19 Dose: 200 mg Dextrose (Dextrose 50% Vial 50 Ml*) 25 ml IV PUSH .FOR FS < 60 - SS PRN PRN Reason: FS < 60 Docusate Sodium (Colace Cap*) 100 mg PO BID [facility] Last Admin: 04/28/19 08:19 Dose: 100 mg Enoxaparin Sodium (Lovenox(*)) 40 mg SUBCUT 1700 [facility] Last Admin: 04/28/19 17:25 Dose: 40 mg Heparin Sodium (Porcine) (Heparin Flush Picc/Ml/Cvc(*)) 1 - 3 ml FLUSH 0600, 1800 [facility]; Protocol Last Admin: 04/28/19 18:28 Dose: 1 ml Cefepime HCl (Maxipime 2 Gm In Dextrose Duplex (*)) 2 gm in 50 mls @ 100 mls/ hr IV Q12H [facility] Last Admin: 04/28/19 17:25 Dose: 100 mls/hr Insulin Human Lispro (Humalog*) 0 units SUBCUT AC [facility]; Protocol Last Admin: 04/28/19 17:25 Dose: 8 units Losartan Potassium (Cozaar Tab*) 100 mg PO DAILY [facility] Last Admin: 04/28/19 08:18 Dose: 100 mg Metoprolol Succinate (Toprol Xl Tab*) 100 mg PO DAILY WITH MEAL [facility] Last Admin: 04/28/19 08:19 Dose: 100 mg Miscellaneous (Ativan Pyxis Maldonado) 1 ea N/A .ATIVAN IV MALDONADO PRN PRN Reason: PYXIS MALDONADO Multivitamins/Minerals (Theragran/Minerals Tab*) 1 tab PO QAM [facility] Last Admin: 04/28/19 08:19 Dose: 1 tab Oxybutynin Chloride (Ditropan Tab*) 5 mg PO BID [facility] Last Admin: 04/28/19 08:19 Dose: 5 mg Senna (Senokot 8.6 Mg Tab*) 1 tab PO DAILY [facility] Last Admin: 04/28/19 08:19 Dose: 1 tab Vital Signs - 8 hr 04/28/19 04/28/19 11:30 15:40 Temperature 97.5 F 98.1 F Pulse Rate 79 87 Respiratory 18 18 Rate Blood Pressure 108/70 119/77 (mmHg) O2 Sat by Pulse 94 94 Oximetry Oxygen Devices in Use Now: None Appearance: Elderly white female, laying in hospital bed, appearing in NAD Eyes: No Scleral Icterus, PERRLA Ears/Nose/Mouth/Throat: Mucous Membranes Moist Neck: - - supple Respiratory: Symmetrical Chest Expansion and Respiratory Effort, Clear to Auscultation Cardiovascular: NL Sounds; No Murmurs; No JVD, RRR Abdominal: - - abd soft, nontender, nondistended Extremities: No Edema, No Clubbing, Cyanosis Skin: No Rash or Ulcers Neurological: - - alert and oriented to self and location; 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 - Patient Problems (1) UTI (urinary tract infection) Current Visit: No Status: Acute Priority: High Comment: -positive for enterococcus and pseudomonas -switched ceftriaxone to cefepime -afebrile without leukocytosis -remains inpatient for S&S (2) Ruddy-neglect of right side Current Visit: Yes Status: Acute Code(s): R41.4 - NEUROLOGIC NEGLECT SYNDROME SNOMED Code(s): 178622248 Comment: -patient with bilateral LE weakness at baseline 2/2 MS, follows with Dr. Nur outpatient, appreciate his input -MRI brain with/without contrast without acute findings -Dr. Nur questioning if patient is possibly having corticobasal degeneration , though difficult to determine due to MS -no further neurology workup at this time (3) Altered mental state Current Visit: No Status: Acute Priority: High Code(s): R41.82 - ALTERED MENTAL STATUS, UNSPECIFIED SNOMED Code(s): 433867337 Comment: - Improving per , but not at baseline; does have cognitive decline at baseline - Suspect possible metabolic encephalopathy related to UTI, though urine culture is pending - Patient doesn't follow commands appropriately at times and also exhibits some echolalia at times, disoriented as well - Acute CVA ruled out with MRI brain (4) DM2 (diabetes mellitus, type 2) Current Visit: No Status: Chronic Priority: Medium Comment: - Holding home glipizide and pioglitazone - Continue Lispro SS - A1c 8.6 - Patient would benefit from additional medication, further follow up with PCP necessary (5) Multiple sclerosis Current Visit: No Status: Chronic Priority: High Code(s): G35 - MULTIPLE SCLEROSIS SNOMED Code(s): 07544496 Comment: - Continue Baclofen and Tegretol (6) DVT prophylaxis Current Visit: No Status: Acute Priority: Low Code(s): MXO8386 - SNOMED Code(s): 373181428 Comment: - lovenox SQ (7) Full code status Current Visit: No Status: Acute Code(s): Z78.9 - OTHER SPECIFIED HEALTH STATUS SNOMED Code(s): 315671349 Comment:
[2019-04-28] MEDS: Atorvastatin* 40 MG TAB PO SCH (20:43)
[2019-04-28] MEDS ORDERED: Glycerin ADULT SUPP PR ONE (23:47)
[2019-04-28] MEDS: Magnesium Hydroxide LIQ* 30 ML UDC PO PRN (23:57)
[2019-04-29] MEDS: Cefepime 2 GM in Dextrose(*) 2 GM/50 ML BAG IV SCH (04:26)
[2019-04-29] MEDS: Docusate CAP* 100 MG PO SCH (08:31)
[2019-04-29] MEDS: Insulin LISPRO* 1 UNITS UNIT SUBCUT SCH ×3 (08:31→17:40)
[2019-04-29] MEDS: carBAMazepine TAB(*) 200 MG PO SCH (08:31)
[2019-04-29] MEDS: Metoprolol Succinate XL TAB* 100 MG PO SCH (08:31)
[2019-04-29] MEDS: Losartan TAB* 25 MG PO SCH (08:31)
[2019-04-29] MEDS: Senna TAB 8.6 mg* TAB PO SCH (08:31)
[2019-04-29] MEDS: Oxybutynin TAB* 5 MG PO SCH (08:31)
[2019-04-29] MEDS: Multivitamins/Minerals TAB PO SCH (08:31)
[2019-04-29] MEDS: Baclofen TAB* 20 MG PO SCH ×3 (08:32→17:40)
[2019-04-29] MEDS ORDERED: Bisacodyl SUPP* 10 MG SUPP PR ONE (10:05)
[2019-04-29] MEDS: BETAMETHASONE TOPICAL SCH (11:00)
[2019-04-29] MEDS: CLOTRIMAZOLE TOPICAL SCH (11:00)
[2019-04-29] MEDS: Magnesium Hydroxide LIQ* 30 ML UDC PO PRN (13:28)
[2019-04-29] MEDS: CMCS:Anastrozole (NF) 1 MG TAB PO SCH (15:37)
[2019-04-29 16:46] VITALS: BP 104/65
[2019-04-29] MEDS: Enoxaparin(*) 40 MG/0.4 ML SYR SUBCUT SCH (17:47)
[2019-04-29] MEDS ORDERED: Amoxicillin/Clavulanate TAB* 500 MG PO SCH (18:00)
--- NOTE | 2019-04-30 00:37 | DS ---
CC: Dr. Olivares; Dr. Eaton; Dr. Nur* DISCHARGE SUMMARY: DATE OF ADMISSION: 04/26/19 DATE OF DISCHARGE: 04/29/19 ATTENDING PHYSICIAN WHILE IN THE HOSPITAL: Dr. Beau Howard* (dictated by ROSY Davis). PRIMARY CARE PROVIDER: Dr. Olivares. UROLOGIST: Dr. Eaton. OUTPATIENT NEUROLOGIST: Dr. Nur. PRIMARY DIAGNOSES: 1. Right-sided arm neglect of unclear etiology. 2. Urinary tract infection, positive for Pseudomonas aeruginosa and Enterococcus faecalis. SECONDARY DIAGNOSES: 1. Multiple sclerosis. 2. Neurogenic bladder. 3. Nephrolithiasis with left ureteral stent placed in February 2019. 4. Hypertension. 5. Hyperlipidemia. 6. Diabetes mellitus type 2. 7. Seizure disorder. 8. Recurrent urinary tract infections. STUDIES WHILE IN THE HOSPITAL: Renal and bladder ultrasound on 04/29/19, patient's mobility limits full evaluation of kidneys. No hydronephrosis is noted. Brain MRI with contrast on 04/27/19, no intra-axial or extra-axial enhancement. The brain parenchyma is better evaluated on prior comparison imaging. Brain MRI without contrast on 04/26/19, with no acute intracranial abnormality. There is moderate burden of confluent nonspecific white matter disease, at least a component of chronic small vessel ischemic disease is likely. There are old lacunar infarcts in the centrum semiovale bilaterally. Moderate cerebral volume loss. CT of abdomen and pelvis: Nonobstructing left renal calculus, status post placement of left ureteral stent catheter. There is no evidence of hydronephrosis. Air within the urinary bladder likely secondary Mcwilliams catheter placement. Mildly enlarged retroperitoneal lymph nodes, unchanged. Calcified uterine fibroid. Status post cholecystectomy. HISTORY OF PRESENT ILLNESS/HOSPITAL COURSE: Lucretia Em is a 69-year-old white female with past medical history significant for neurogenic bladder with chronic straight catheterization, MS, hypertension, hyperlipidemia, diabetes, seizure disorder, and recurrent UTIs, who presented to the emergency department on 04/26/19 due to altered mental status, and right arm neglect. Please see admitting H and P dictated by ROSY Garcia, for further information. Ultimately, during her hospital stay, she was seen by Dr. Nur, who is also her outpatient neurologist, who recommended brain MRI without contrast, and then ultimately additionally with contrast. At this point, there is unclear etiology to explain her right arm neglect. During her hospital stay, she was beginning to utilize the arm more and her altered mental status was starting to improve towards her baseline according to her . The patient was afebrile without leukocytosis during the entirety of her hospital stay. Initially the patient was found to have an abnormal urinalysis and she was empirically started on ceftriaxone. Ultimately, she was found to have urine culture positive for Pseudomonas aeruginosa and Enterococcus faecalis and she was changed to Augmentin and sensitivities demonstrated compatibility for treatment of both of these pathogens. Again, the patient had imaging to rule out pyelonephritis. The patient has a scheduled appointment with Dr. Eaton to remove her renal stent. Ultimately, because of the patient's progressive MS and low utility of additional brain imaging, it is near impossible to be certain the cause of her right arm neglect. Dr. Nur questions whether there is a possible superimposed cortical basal ganglionic degeneration; however, it can never be clear. Please see his consultation report from 04/28/19 for further information. The patient was without suprapubic tenderness or low-back pain throughout her hospital stay as well. During her hospital stay, the patient was constipated and had not had a bowel movement despite multiple oral laxatives. Ultimately, on the day of discharge, the patient was given a suppository with no bowel movement. Ultimately the patient did have a bowel movement after an enema was given. The patient's hemoglobin A1c was found to be 8.6 during her hospital stay. PHYSICAL EXAMINATION: On the day of discharge, General: Elderly white female, lying in hospital bed, appearing comfortable, in no acute distress. Eyes: PERRL. Sclerae anicteric. ENT: Mucous membranes are moist. Chest: Regular rate and rhythm without murmurs, rubs, or gallops. Lungs: Clear to auscultation throughout. Abdomen: Soft, nontender, nondistended. No CVA tenderness, suprapubic tenderness. Extremities: No clubbing, cyanosis, or edema. Neurologic: Minimally reduced range of motion of right upper extremity. Strength is 3/5 in bilateral upper extremities and 1/5 in bilateral lower extremities. DISCHARGE PLAN: DIET: Carbohydrate consistent diet. ACTIVITY: Return to normal activity. The patient is advised to return to emergency department if she experiences hematuria, fever, chills, low-back pain. 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 They were advised to follow up in the wound clinic and they already have an appointment scheduled and they were also advised to follow up with their regularly scheduled appointments with Dr. Eaton to have her renal stent removed. She was advised to follow up with Dr. Nur routinely and follow up with her primary care provider in 7 to 10 days regarding this hospitalization. At the time of followup with primary care provider it will be beneficial for the patient to have further evaluation for an additional diabetes medication as she does have hemoglobin A1c of 8.6; for someone her age this does still represent suboptimal control. The patient's refused VNS services to the home at multiple points with the case management during this hospital stay. DISCHARGE MEDICATIONS: Augmentin 500 mg p.o. b.i.d. Continued home medications: 1. Pioglitazone 30 mg p.o. daily. 2. Acetaminophen 650 p.o. q.6 hours p.r.n. 3. Glipizide 10 mg p.o. b.i.d. 4. Carbamazepine 200 mg p.o. b.i.d. 5. Oxybutynin 5 mg p.o. b.i.d. 6. Multivitamin 1 tab p.o. daily. 7. Metoprolol 100 mg p.o. daily. 8. Losartan 100 mg p.o. daily. 9. Hydrocodone 5/325 mg 1 tab p.o. q.6 hours p.r.n. pain. 10. Lotrisone cream 1 application topically daily. 11. Baclofen 20 mg p.o. 4 times a day. 12. Lipitor 40 mg p.o. daily. 13. Anastrozole 1 mg p.o. q. 12 o'clock. CONDITION ON DISCHARGE: Stable. DISPOSITION: Home. TIME SPENT: Approximately 40 minutes were spent on this discharge, approximately half of that time was spent at bedside evaluating the patient and reviewing discharge plan with the patient and her . ROSY DAVIS [id number]/[facility] #: [id number] [facility]
== END 2019-04-29 18:00 | disposition home or self-care (01) ==
LOC: ED 06:41 → MEDTELE 13:17
PROVIDERS: ADMIT Internal Medicine; ATTEND Internal Medicine
DX: R41.4 Neurologic neglect syndrome (principal); R41.82 Altered mental status, unspecified; E11.9 Type 2 diabetes mellitus without complications; I10 Essential (primary) hypertension; G40.909 Epilepsy, unspecified, not intractable, without status epilepticus; Z87.442 Personal history of urinary calculi; Z85.3 Personal history of malignant neoplasm of breast; Z87.891 Personal history of nicotine dependence; R10.9 Unspecified abdominal pain; N39.0 Urinary tract infection, site not specified; L89.152 Pressure ulcer of sacral region, stage 2; G35 Multiple sclerosis; N31.9 Neuromuscular dysfunction of bladder, unspecified; Z79.899 Other long term (current) drug therapy; E78.5 Hyperlipidemia, unspecified; R82.90 Unspecified abnormal findings in urine; Z88.2 Allergy status to sulfonamides; R94.31 Abnormal electrocardiogram [ECG] [EKG]; Z87.440 Personal history of urinary (tract) infections
CPT/HCPCS: 36415; 70551; 70552; 71045; 74176; 76775; 80048; 80053; 80156; 81003; 81015; 82550; 83036; 83605; 83880; 84484; 85025; 85610; 85652; 85730; 86140; 87040; 87077; 87086; 87186; 93005; 96366; 96367; 96372; 96374; 96375; 99285; A9270-GY; A9579; G0378; J0360; J0692; J0696; J1650; J2060

== ENCOUNTER 2019-05-14 00:47 | Inpatient (IN) | payer MEDICARE, MEDICAID ==
[2019-05-14 02:50] LABS: Urine Appearance Turbid; Urine Bacteria Absent (Absent); Urine Bilirubin Negative (Negative); Urine Blood 2+ (Negative); Urine Color Amber; Urine Glucose 3+(>=500 mg/dL) (Negative); Urine Ketones Negative (Negative); Urine Nitrite Negative (Negative); Urine Protein 2+(100 mg/dL) (Negative); Urine Red Blood Cell 3+(>10/hpf) (Absent); Urine Specific Gravity 1.015 (1.010-1.030); Urine Urobilinogen Negative (Negative); Urine White Blood Cell 3+(>20/hpf) (Absent)
--- NOTE | 2019-05-14 03:07 | ED ---
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 Per the , the pt has been disoriented and has had decreased motor skills today, which are typical symptoms of when she has a UTI. She has hx of sepsis and UTI and visited [facility] for UTI in 02/2019 and 03/2019. The pt uses straight catheterization at home. Pain severity is rated 0/10. She also denies CP, SOB, vomiting, or fever. LEVEL 5 CAVEAT. Full Hx unobtainable due to pt having decreased responsiveness. Home Medications Medication Instructions Recorded Confirmed Type Metoprolol Succinate XL TAB* 100 mg PO DAILY WITH MEAL 10/09/15 04/26/19 History [Toprol XL TAB*] Baclofen TAB* [Lioresal TAB*] 20 mg PO QID 01/16/16 04/26/19 History Anastrozole (NF) [Arimidex (NF)] 1 mg PO 1200 06/30/17 04/26/19 History Atorvastatin* [Lipitor 40 MG*] 40 mg PO BEDTIME 06/30/17 04/26/19 History Multivitamins/Minerals TAB* 1 tab PO QAM 06/30/17 04/26/19 History [Theragran/minerals TAB*] Oxybutynin TAB* [Ditropan TAB*] 5 mg PO BID 06/30/17 04/26/19 History carBAMazepine TAB(*) [Tegretol 200 mg PO BID 06/30/17 04/26/19 History TAB(*)] glipiZIDE TAB.XL* [Glucotrol Xl*] 10 mg PO BID 06/30/17 04/26/19 History Acetaminophen TAB* [Tylenol TAB*] 650 mg PO Q6H PRN #30 tab 03/04/18 04/26/19 Rx HYDROcodone/ACETAMIN 5-325 MG* 1 tab PO Q6H PRN #20 tab MDD 4tab 10/27/18 Rx [[place] 5-325 TAB*] Losartan TAB* [Cozaar TAB*] 100 mg PO DAILY 03/04/19 04/26/19 History Clotrimazole/Betamethasone* 1 applic TOPICAL DAILY 21 Days #1 04/10/19 04/26/19 Rx [Lotrisone Cream*] tube Pioglitazone HCl 30 mg PO DAILY 04/26/19 04/26/19 History Amoxicillin/Clavulanate TAB* 500 mg PO BID #13 tab 04/29/19 Rx [Augmentin TAB 500 mg*] Gentamicin 0.1% OINTMENT* 1 applic TOPICAL DAILY #1 tube 05/09/19 Rx - History of Current Complaint Chief Complaint: EDUrogenitalProblems Time Seen by Provider: 05/14/19 01:08 Stated Complaint: UTI PER Hx Obtained From: Family/Checkman - Hx From Patient Unobtainable Due To: Other - LEVEL 5 CAVEAT. Full Hx unobtainable due to pt having decreased responsiveness. Onset/Duration: Started Hours Ago, Still Present Timing: Constant, Lasting Hours Severity: Mild Current Severity: None Pain Intensity: 0 Associated Signs and Symptoms: Positive: Other: - pos - disorientedness and decreased motor skills, neg - SOB. Negative: Vomiting, Fever, Chest Pain Aggravating Factor(s): Nothing Alleviating Factor(s): Nothing - Additional Pertinent History Primary Care Physician: JORGE LUIS - Allergy/Home Medications Allergies/Adverse Reactions: Allergies Allergy/AdvReac Type Severity Reaction Status Date / Time lisinopril Allergy Mild Swelling Verified 03/03/19 22:37 Sulfa (Sulfonamide AdvReac Intermediate Unknown Verified 03/03/19 22:37 Antibiotics) Reaction Details PMH/Surg Hx/FS Hx/Imm Hx Endocrine/Hematology History: Reports: Hx Diabetes Cardiovascular History: Reports: Hx Hypertension Denies: Hx Pacemaker/ICD GI History: Reports: Hx Gall Bladder Disease - cholecystectomy History: Reports: Hx Dialysis, Hx Kidney Infection, Hx Kidney Stones, Other Problems/Disorders - HYDRONEPHROSIS, L STENT PLACED 03/04/19 Denies: Hx Renal Disease Musculoskeletal History: Reports: Other Musculoskeletal History - MS, DOES NOT AMBULATE; IN WC, sacral pressure ulcers Denies: Hx Arthritis Sensory History: Reports: Hx Contacts or Glasses - READING GLASSES Denies: Hx Hearing Aid Opthamlomology History: Reports: Hx Contacts or Glasses - READING GLASSES Neurological History: Reports: Hx Nerve Disease, Hx Seizures, Other Neuro Impairments/Disorders - MULTIPLE SCLEROSIS Denies: Hx Headaches Psychiatric History: Denies: Hx Anxiety, Hx Depression, Hx Panic Disorder - Cancer History Cancer Type, Location and Year: RIGHT BREAST CA Hx Chemotherapy: No Hx Radiation Therapy: No - Surgical History Surgery Procedure, Year, and Place: CHOLECYSTECTOMY. RIGHT BREAST-LUMPECTOMY. KIDNEY STONE PROCEDURES Hx Anesthesia Reactions: No - Immunization History Immunizations Up to Date: Yes Infectious Disease History: No Infectious Disease History: Denies: Traveled Outside the [place] in Last 30 Days - Family History Known Family History: Positive: Diabetes - Social History Alcohol Use: None Hx Substance Use: No Substance Use Type: Reports: None Hx Tobacco Use: Yes Smoking Status (MU): Former Smoker Amount Used/How Often: X 1-2 YEARS Have You Smoked in the Last Year: No Review of Systems Negative: Fever Negative: Chest Pain Negative: Shortness Of Breath Negative: Vomiting Neurological: Other - pos - disoriented and decreased motor skills All Other Systems Reviewed And Are Negative: No - Comments Additional Review of Systems Comments: LEVEL 5 CAVEAT. Full Hx unobtainable due to pt having decreased responsiveness. Physical Exam - Summary Physical Exam Summary: General: Well-developed, Well-nourished female. No acute distress. HEENT: Normocephalic, Atraumatic. Eyes: Conjuctiva normal, PERRL. Ears: TMs within normal limits. Nares: (-) discharge, (-) erythema. Oropharynx: Clear, mucous membranes moist, (-) exudates. Neck: Soft, FROM, (-) lymphadenopathy, (-) thyromegaly, (-) JVD. Cardiovascular: Normal sinus rhythm, (-) murmur. Lungs: Clear to auscultation bilaterally (-) wheezes, (-) rales, (-) rhonchi. Abdomen: Soft, non-tender, non-distended, (-) organomegaly, normal bowel sounds. Back: (-) CVA tenderness Extremities: No edema. Skin: Warm, dry, (-) rash. Neuro: Awake and opens eye, does not respond, does follow some commands, unable to do full assessment Psychiatric: Unable to do full assessment. Triage Information Reviewed: Yes Vital Signs On Initial Exam: Initial Vitals Temp Pulse Resp BP Pulse Ox 97.7 F 90 18 139/107 95 05/14/19 00:48 05/14/19 00:48 05/14/19 00:48 05/14/19 00:48 05/14/19 00:48 Vital Signs Reviewed: Yes Completion Of Physical Exam Limited Due To: Level 5 - LEVEL 5 CAVEAT. Full Hx unobtainable due to pt having decreased responsiveness. Diagnostics - Vital Signs Vital Signs Temp Pulse Resp BP Pulse Ox 05/14/19 01:07 89 23 124/75 93 05/14/19 01:04 14 05/14/19 00:48 97.7 F 90 18 139/107 95 - Laboratory Lab Results: Lab Results 05/14/19 Range/Units 02:31 Urine Color Nadia Urine Appearance Turbid Urine pH 5.0 (5-9) Ur Specific [place] 1.015 (1.010-1.030) Urine Protein 2+(100 mg/dl) A (Negative) Urine Ketones Negative (Negative) Urine Blood 2+ A (Negative) Urine Nitrate Negative (Negative) Urine Bilirubin Negative (Negative) Urine Urobilinogen Negative (Negative) Ur Leukocyte Esterase 3+ A (Negative) Urine WBC (Auto) 3+(>20/hpf) A (Absent) Urine RBC (Auto) 3+(>10/hpf) A (Absent) Urine Bacteria Absent (Absent) Urine Yeast Present A (Absent) Urine Glucose 3+(>=500 mg/dl) A (Negative) Result Diagrams: 05/14/19 03:23 05/14/19 03:06 Lab Statement: Any lab studies that have been ordered have been reviewed, and results considered in the medical decision making process. - Radiology CXR Radiology Interpretation Completed By: ED Physician Summary of Radiographic Findings: No obvious infiltrate, pending official report. 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 She also denies CP, SOB, vomiting, or fever. Test results normal except for WBC 13.2, RDW 16, Absolute Neuts 9.2, Absolute Monos 1.4, Sodium 127, Potassium 5.1, Chloride 97, Carbon Dioxide 18, Anion Gap 12, BUN 44, Creatinine 1.4, BUN/Creatinine 31.4, Glucose 255, Magnesium 1.8, 2+ Ur Blood, 2+ Ur Protein, 3+ Ur leukocyte esterase, 3+ Ur WBC, 3+ Ur RBC, Ur Yeast present, and 3+ Ur glucose. In the ED course pt was given 1000mg Rocephin, 3.6 ml Xylocaine, 100 mls Tazobactam, and 1000 mls fluids. A CXR reveals no obvious infiltrate, pending official report. Final Dx are UTI and confusion. Hospitalist was consulted @ 0636 and will admit the pt to [facility]. - Diagnoses Provider Diagnoses: UTI (urinary tract infection), Confusion - Physician Notifications Discussed Care Of Patient With: Trevin Salazar - Hospitalist will admit pt to [facility]. Time Discussed With Above Provider: 06:36 Instructed by Provider To: Admit As Inpatient Discharge ED - Sign-Out/Discharge Documenting (check all that apply): Patient Departure - admit Patient Received Moderate/Deep Sedation with Procedure: No - Discharge Plan Referrals: Arcenio Olivares MD [Primary Care Provider] - - Attestation Statements Document Initiated by Scribe: Yes Documenting Scribe: Devendra Miller Provider For Whom Scribe is Documenting (Include Credential): Sheryl Jacobs MD Scribe Attestation: Devendra Graham, scribed for Sheryl Jacobs MD on 05/14/19 at 0659. Status of Scribe Document: Ready
[2019-05-14] MEDS ORDERED: Piperacillin/Tazobac ADVAN(*) 3.375 GM in NS 0.9% 100 ML* 100 ML IVPB ONE (03:49)
[2019-05-14 03:54] LABS: Albumin 3.9 g/dL (3.2-5.2); Calcium 8.8 mg/dL (8.6-10.3); Magnesium 1.8 mg/dL (1.9-2.7); Total Bilirubin 0.3 mg/dL (0.2-1.0)
[2019-05-14 03:55] LABS: Hematocrit 38 % (35-47); Hemoglobin 12.7 g/dL (12.0-16.0); Mean Corpuscular HGB Conc 33 g/dL (31-36); Mean Corpuscular Hemoglobin 30 pg (27-31); Mean Corpuscular Volume 89 fL (80-97); Red Blood Count 4.27 10^6 /uL (3.70-4.87); Red Cell Distribution Width 16 % (10-15); White Blood Count 13.2 10^3/uL (3.5-10.8)
[2019-05-14 04:00] LABS: BUN/Creatinine Ratio 31.4 (8-20); EGFR African American 45.2 (>60); EGFR Non-African American 37.4 (>60); Globulin 3.8 g/dL (2-4); Total Protein 7.7 g/dL (6.4-8.9)
[2019-05-14 04:18] LABS: Potassium 5.1 mmol/L (3.5-5.0)
[2019-05-14 04:30] LABS: ABS Eosinophils 0.2 10^3/ul (0-0.6); ABS Lymphocytes 2.3 10^3/ul (1.0-4.8); ABS Monocytes 1.4 10^3/ul (0-0.8); ABS Neutrophils 9.2 10^3/ul (1.5-7.7); Eosinophil % 1.5 %; Lymphocyte % 17.5 %; Mean Platelet Volume 9.2 fL (7.4-10.4); Platelet Count 220 10^3/uL (150-450)
[2019-05-14] MEDS ORDERED: Lidocaine 1% MPF ** 5 ML VIAL IM ONE (05:29)
[2019-05-14] MEDS ORDERED: cefTRIAXone VIAL(*) 1,000 MG VIAL IM ONE (05:29)
[2019-05-14] MEDS ORDERED: NS 0.9% 1000 ML** 1,000 ML IV.FLUID IV ONE (06:17)
[2019-05-14] MEDS ORDERED: NS 0.9% 1000 ML** 1,000 ML IV ONE ×2 (07:41→08:19)
[2019-05-14] MEDS ORDERED: Vancomycin(*) 1,000 MG in NS 0.9% 250 ML* 250 ML IVPB ONE (08:18)
--- NOTE | 2019-05-14 08:24 | ED ---
Progress - Progress Note Progress Note: This pt is a sign out to Dr. Rogers from Dr. Jacobs at 0700 05/14/19 pending observation until the pt is admitted to [facility]. Consult with the Hospitalist, Dr. Mart, at 0822, found that the pt has been having fluctuation in her BP and at her lowest point her BP was 61/37. She will be monitored for further declines in her BP which would result in a PICC Line placement. Course/Dx - Course Course Of Treatment: The pt is a 69 year old female presenting to [facility] c/o possible UTI beginning 10 hours [employer]. She also denies CP, SOB, vomiting, or fever. Test results normal except for WBC 13.2, RDW 16, Absolute Neuts 9.2, Absolute Monos 1.4, Sodium 127, Potassium 5.1, Chloride 97, Carbon Dioxide 18, Anion Gap 12, BUN 44, Creatinine 1.4, BUN/Creatinine 31.4, Glucose 255, Magnesium 1.8, 2+ Ur Blood, 2+ Ur Protein, 3+ Ur leukocyte esterase, 3+ Ur WBC, 3+ Ur RBC, Ur Yeast present, and 3+ Ur glucose. In the ED course pt was given 1000mg Rocephin, 3.6 ml Xylocaine, 100 mls Tazobactam, and 1000 mls fluids. A CXR reveals no obvious infiltrate, pending official report. Final Dx are UTI and confusion. Hospitalist was consulted @ 0636 and will admit the pt to [facility]. - Diagnoses Provider Diagnoses: UTI (urinary tract infection), Confusion - Provider Notifications Time Discussed With Above Provider: 06:36 Instructed by Provider To: Admit As Inpatient Discharge ED - Sign-Out/Discharge Documenting (check all that apply): Patient Departure - Discharge Plan Condition: Stable Disposition: ADMITTED TO [facility] Referrals: Arcenio Olivares MD [Primary Care Provider] - - Billing Disposition and Condition Condition: STABLE Disposition: Admitted to [facility] - Attestation Statements Document Initiated by Scribe: Yes Documenting Scribe: Raza Varma Provider For Whom Scribe is Documenting (Include Credential): Anibal Rogers MD Scribe Attestation: Raza Graham, scribed for Anibal Rogers MD on 05/14/19 at 1058. Scribe Documentation Reviewed: Yes Provider Attestation: The documentation as recorded by the scribe, Raza Varma accurately reflects the service I personally performed and the decisions made by me, Anibal Rogers MD Status of Scribe Document: Viewed
[2019-05-14] MEDS ORDERED: Albuterol/Ipratropium NEB.SOL* Albuterol 2.5 MG/Ipratropium 0.5 MG 3 ML INH PRN (10:15)
[2019-05-14] MEDS ORDERED: Ondansetron INJ* 2 MG/ML VIAL IV PRN (10:15)
[2019-05-14] MEDS ORDERED: NS 0.9% 1000 ML** 1,000 ML IV SCH (10:15)
[2019-05-14] MEDS ORDERED: HYDROcodone/ACETAMIN 5-325 MG* 1 TAB PO PRN (10:17)
[2019-05-14] MEDS ORDERED: Dextrose 50% VIAL 50 ml IV PUSH PRN (10:19)
[2019-05-14] MEDS ORDERED: Vancomycin per Pharmacy* NOTE FOLLOW UP SCH (11:00)
[2019-05-14] MEDS ORDERED: Zosyn per Pharmacy* NOTE FOLLOW UP SCH (11:00)
[2019-05-14] MEDS: Pantoprazole IV* 40 MG IV SCH (12:57)
[2019-05-14] MEDS: Insulin LISPRO* 1 UNITS UNIT SUBCUT SCH ×3 (13:27→20:52)
[2019-05-14] MEDS: Baclofen TAB* 20 MG PO SCH ×3 (13:27→20:49)
[2019-05-14] MEDS: carBAMazepine TAB(*) 200 MG PO SCH ×2 (13:28→20:49)
[2019-05-14] MEDS: ZOSYN 3.375 GM Q8H per EXTENDED INFUSION IVPB SCH ×4 (13:33→22:44)
--- NOTE | 2019-05-14 17:26 | HP ---
CC: Dr. Arcenio Olivares HISTORY AND PHYSICAL: DATE OF ADMISSION: 05/14/19 CHIEF COMPLAINT: Altered mental status. SUBJECTIVE: This is a 69-year-old female with known past medical history significant for diabetes me llitus, multiple sclerosis, hypertension, hyperlipidemia, seizure disorder, who was brought into the emergency room as her noticed that she was not acting right, more confused, lethargic, and di soriented. She is known to have history of UTI and sepsis; very frequent hospitalizations, [facility] and discharged on 04/29/19 for UTI and right-sided arm neglect. In the emergenc y room on presentation, she was found to have profound low blood pressure and positive urinalysis; th erefore, she was admitted for UTI and sepsis. Her vitals were noted to have a blood pressure as low as 56/37. She did receive 3 L of normal saline and blood pressure improved to 122/69. She received vancomycin and Zosyn and admitted to the medical service. PAST MEDICAL HISTORY: 1. Multiple sclerosis. 2. Neurogenic bladder. 3. Nephrolithiasis with left ureteral stent in February 2019. 4. Hypertension. 5. Hyperlipidemia. 6. Diabetes mellitus. 7. Seizure disorder. PAST SURGICAL HISTORY: 1. Left ureteral stent and lithotripsy. 2. Left breast lumpectomy. ALLERGIES: LISINOPRIL, swelling and SULFA, unknown. FAMILY HISTORY: Significant for diabetes in her father and mother of leukemia. SOCIAL HISTORY: Former smoker, quit 50 plus years. No alcohol. She lives at home with her , caregiver, and aide. REVIEW OF SYSTEMS: Limited due to her mental status. PHYSICAL EXAMINATION GENERAL: She is awake, disoriented, unable to follow simple commands. VITAL SIGNS: Temperature 97.6, pulse 88, respiratory rate 18, satting 100%, blood pressure 122/69. HEENT: Head and Neck: Normocephalic, atraumatic. She does have right-sided facial droop and right arm is contracted. LUNGS: Good airflow. No crackles or rhonchi. CARDIOVASCULAR: S1, S2. Tachycardic. Her pulse was 107. ABDOMEN: Positive bowel sounds. Soft, nontender. She does have Mcwilliams catheter in place with purule nt urine. [employer]: She does have right-sided weakness, contracted, unable to indulge in conversation. SKIN: Slight pallor. No rash. DIAGNOSTIC STUDIES/LAB DATA: CBC: White count 13,000, hemoglobin 12, hematocrit 38, platelets 220. Chemistry: Sodium 127, potassium 5.1, chloride 97, BUN 44, creatinine 1.4, glucose 155, magnesium 1. 8. Urinalysis: Positive leuko esterase 3+, positive wbc's 3+. IMPRESSION AND PLAN: This is a 69-year-old female admitted for: 1. Altered mental status, most likely secondary to urinary tract infection and sepsis. Given her hy potension, I believe she had early septic shock, appropriately resuscitated with IV fluids. Given he r chronic urinary tract infection, I am going to cover her empirically with Zosyn and vancomycin, sta tus post 3 L of normal saline, then we will put her at 125 cc an hour for 1 day. 2. For her right-sided weakness, right facial droop, I know this is related to old cerebrovascular a ccident, I am going to send her for a head CT. 3. For her hyperlipidemia, continue atorvastatin 40. 4. For her multiple sclerosis, continue baclofen 20 four times daily. 5. History of seizure. Continue carbamazepine 200 b.i.d. 6. For her diabetes, put her on sliding s ollie. 7. GI prophylaxis: Protonix. 8. DVT prophylaxis: Lovenox 40 mg if the head CT is negative in the next 24 hours. [id number]/[facility] #: [id number]
[2019-05-14] MEDS ORDERED: GENTAMICIN 0.1% TOPICAL SCH (18:00)
[2019-05-14] MEDS ORDERED: Clotrimazole/Betamethasone CREAM* 15 GM TOPICAL SCH (18:00)
[2019-05-14] MEDS: Atorvastatin* 40 MG TAB PO SCH (20:49)
[2019-05-14] MEDS: Oxybutynin TAB* 5 MG PO SCH (20:49)
[2019-05-14] MEDS: Clotrimazole/Betamethasone CREAM* 15 GM TOPICAL SCH (20:50)
[2019-05-14] MEDS: Vancomycin(*) 750 MG in NS 0.9% 250 ML* 250 ML IVPB SCH (20:54)
[2019-05-14] MEDS: GENTAMICIN 0.1% TOPICAL SCH (20:54)
[2019-05-15] MEDS: ZOSYN 3.375 GM Q8H per EXTENDED INFUSION IVPB SCH ×6 (05:41→23:43)
[2019-05-15 06:49] LABS: ABS Eosinophils 0.1 10^3/ul (0-0.6); ABS Monocytes 0.9 10^3/ul (0-0.8); ABS Neutrophils 7.5 10^3/ul (1.5-7.7); Eosinophil % 1.5 %; Hematocrit 31 % (35-47); Hemoglobin 10.4 g/dL (12.0-16.0); Mean Corpuscular HGB Conc 33 g/dL (31-36); Mean Corpuscular Hemoglobin 30 pg (27-31); Mean Corpuscular Volume 90 fL (80-97); Platelet Count 161 10^3/uL (150-450); Red Blood Count 3.46 10^6 /uL (3.70-4.87); Red Cell Distribution Width 16 % (10-15); White Blood Count 9.5 10^3/uL (3.5-10.8)
[2019-05-15 06:59] LABS: Calcium 7.4 mg/dL (8.6-10.3); Magnesium 1.4 mg/dL (1.9-2.7); Potassium 3.9 mmol/L (3.5-5.0)
[2019-05-15 07:05] LABS: BUN/Creatinine Ratio 23.5 (8-20); EGFR African American 68.3 (>60); EGFR Non-African American 56.4 (>60); Phosphorus 2.2 mg/dL (2.5-5.0)
[2019-05-15] MEDS: Vancomycin(*) 750 MG in NS 0.9% 250 ML* 250 ML IVPB SCH ×2 (09:32→23:43)
[2019-05-15] MEDS: carBAMazepine TAB(*) 200 MG PO SCH ×2 (09:32→23:03)
[2019-05-15] MEDS: Oxybutynin TAB* 5 MG PO SCH ×2 (09:32→23:03)
[2019-05-15] MEDS: Insulin LISPRO* 1 UNITS UNIT SUBCUT SCH ×4 (09:32→23:04)
[2019-05-15] MEDS: Baclofen TAB* 20 MG PO SCH ×4 (09:34→23:06)
[2019-05-15] MEDS: Magnesium Sulfate IV* 3 GM in NS 0.9% 100 ML* 100 ML IVPB ONE ×2 (09:36→11:37)
[2019-05-15] MEDS: Pantoprazole IV* 40 MG IV SCH (11:36)
--- NOTE | 2019-05-15 15:31 | PN ---
Subjective Date of Service: 05/15/19 Interval History: Pt is seen with by the bedside. Feels well, denies pain.Rather poor and forgetful historian Objective Active Medications: Acetaminophen (Tylenol Tab*) 650 mg PO Q4H PRN PRN Reason: PAIN Hydrocodone Bitart/Acetaminophen ([place] 5-325 Tab*) 1 tab PO Q6H PRN PRN Reason: PAIN Albuterol/Ipratropium (Duoneb (Albuterol 2.5 Mg/Ipratropium 0.5 Mg)) 1 neb INH Q2H PRN PRN Reason: SOB/WHEEZING Atorvastatin Calcium (Lipitor*) 40 mg PO BEDTIME [facility] Last Admin: 05/14/19 20:49 Dose: 40 mg Baclofen (Lioresal Tab*) 20 mg PO QID [facility] Last Admin: 05/15/19 13:58 Dose: 20 mg Betamethasone/Clotrimazole (Lotrisone Cream*) 1 applic TOPICAL 2100 [facility] Last Admin: 05/14/19 20:50 Dose: 1 applic Carbamazepine (Tegretol Tab(*)) 200 mg PO BID [facility] Last Admin: 05/15/19 09:32 Dose: 200 mg Dextrose (Dextrose 50% Vial 50 Ml*) 25 ml IV PUSH .FOR FS < 60 - SS PRN PRN Reason: FS < 60 Gentamicin Sulfate (Gentamicin 0.1% Ointment*) 1 applic TOPICAL 2100 [facility] Stop: 06/03/19 21:01 Last Admin: 05/14/19 20:54 Dose: 1 applic Piperacillin Sod/Tazobactam (Sod 3.375 gm/ Sodium Chloride) 100 mls @ 25 mls/ hr IVPB Q8H [facility] Last Admin: 05/15/19 13:58 Dose: 25 mls/hr Vancomycin HCl 750 mg/ Sodium (Chloride) 250 mls @ 166.667 mls/hr IVPB Q12H [facility] Last Admin: 05/15/19 09:32 Dose: 166.667 mls/hr Insulin Human Lispro (Humalog*) 0 units SUBCUT ACHS [facility]; Protocol Last Admin: 05/15/19 11:36 Dose: 4 units Ondansetron HCl (Zofran Inj*) 4 mg IV Q6H PRN PRN Reason: NAUSEA Oxybutynin Chloride (Ditropan Tab*) 5 mg PO BID [facility] Last Admin: 05/15/19 09:32 Dose: 5 mg Pantoprazole Sodium (Protonix Iv*) 40 mg IV Q24H [facility] Last Admin: 05/15/19 11:36 Dose: 40 mg Pharmacy Consult (Vancomycin Per Pharmacy*) 1 note FOLLOW UP .VANC PER PHARMACY [facility]; Protocol Pharmacy Consult (Zosyn Per Pharmacy*) 1 note FOLLOW UP .ZOSYN PER PHARMACY [facility] Pharmacy Profile Note (Vancomycin Trough Check) 1 note FOLLOW UP 0730 ONE Stop: 05/16/19 08:31 Vital Signs - 8 hr 05/15/19 05/15/19 08:00 11:15 Temperature 97.3 F Pulse Rate 93 Respiratory 16 16 Rate Blood Pressure 136/84 (mmHg) O2 Sat by Pulse 99 Oximetry Oxygen Devices in Use Now: Nasal Cannula Appearance: 69 yo F in nAD, aAOx2 Eyes: No Scleral Icterus, PERRLA Ears/Nose/Mouth/Throat: NL Teeth, Lips, Gums, Mucous Membranes Moist Neck: NL Appearance and Movements; NL JVP, Trachea Midline Respiratory: Symmetrical Chest Expansion and Respiratory Effort, Clear to Auscultation Cardiovascular: NL Sounds; No Murmurs; No JVD Abdominal: NL Sounds; No Tenderness; No Distention, No Hepatosplenomegaly Lymphatic: No Cervical Adenopathy Extremities: No Edema, No Clubbing, Cyanosis Skin: - - scral decub b/l at 1 cm stage 2-not infected Neurological: - - R faical droop, R arm contracted with hand motor strenght at 4 /5 Result Diagrams: 05/15/19 06:33 05/15/19 06:33 Additional Lab and Data: Lab Results 05/14/19 Range/Units 02:31 Urine Color Nadia Urine Appearance Turbid Urine pH 5.0 (5-9) Ur Specific [place] 1.015 (1.010-1.030) Urine Protein 2+(100 mg/dl) A (Negative) Urine Ketones Negative (Negative) Urine Blood 2+ A (Negative) Urine Nitrate Negative (Negative) Urine Bilirubin Negative (Negative) Urine Urobilinogen Negative (Negative) Ur Leukocyte Esterase 3+ A (Negative) Urine WBC (Auto) 3+(>20/hpf) A (Absent) Urine RBC (Auto) 3+(>10/hpf) A (Absent) Urine Bacteria Absent (Absent) Urine Yeast Present A (Absent) Urine Glucose 3+(>=500 mg/dl) A (Negative) Microbiology and Other Data: Microbiology 05/14/19 02:31 Urine Culture - Preliminary Urine Pseudomonas Aeruginosa 05/14/19 03:23 Aerobic Blood Culture - Final Blood Venous Not Reportable Anaerobic Blood Culture - Final Not Reportable Blood Culture - Preliminary No Growth Day 1 05/14/19 03:06 Aerobic Blood Culture - Final Blood Venous Not Reportable Anaerobic Blood Culture - Final Not Reportable Blood Culture - Preliminary No Growth Day 1 Assess/Plan/Problems-Billing Assessment: 69 yo female with PMHx neurogenic bladder who self-caths, HTN, HLD, MS, DMT2, seizure disorder presents with hypotension altered mental status. - Patient Problems (1) UTI (urinary tract infection) Comment: -was on Amocicillin at home -cont Zosyn , Vanc-awaitign urine cx. -afebrile,leukocytosis reolved (2) Nephrolithiasis Comment: s stant in left ureter adn 6x4 mm stone in left kidney. D/w Dr. Eaton: Reanl US shows no hydronephrosis will get CT abd /pelvis with no contrast to eval for stones and then KUB to see if they are radioopaque. (3) Ruddy-neglect of right side Comment: -patient with bilateral LE weakness at baseline 2/2 MS, follows with Dr. Nur outpatient, --sice end of March 2019 was noted to have R sided weakness and R facial droop- clinically CVa, but no MRI findings to proove that (4) Severe sepsis Comment: -The patient was severly septic on admission secondary to UTI (5) Toxic metabolic encephalopathy Comment: In setting of UTI. Resolved (6) chronic wounds Comment: Sacral chronic wound - does not appear infected. Asked wound care to see pt. (7) DM2 (diabetes mellitus, type 2) Comment: - Holding home glipizide and pioglitazone - Continue Lispro SS (8) HTN (hypertension) Comment: normotensive today (9) Multiple sclerosis Comment: - Continue Baclofen and Tegretol (10) Neurogenic bladder Comment: Mcwilliams in place during hospital stay (11) DVT prophylaxis Comment: - lovenox SQ Status and Disposition: inpatient
[2019-05-15] MEDS: Enoxaparin(*) 40 MG/0.4 ML SYR SUBCUT SCH (17:02)
[2019-05-15] MEDS: Atorvastatin* 40 MG TAB PO SCH (23:03)
[2019-05-15] MEDS: Clotrimazole/Betamethasone CREAM* 15 GM TOPICAL SCH (23:06)
[2019-05-15] MEDS: GENTAMICIN 0.1% TOPICAL SCH (23:07)
[2019-05-16] MEDS ORDERED: Haloperidol TAB* 5 MG PO ONE (02:09)
[2019-05-16] MEDS: Acetaminophen TAB* 325 MG PO PRN ×2 (02:29→08:30)
[2019-05-16] MEDS: ZOSYN 3.375 GM Q8H per EXTENDED INFUSION IVPB SCH ×6 (06:03→20:57)
[2019-05-16] MEDS ORDERED: Lactated Ringers 1000 ML Bag* 1,000 ML IV ONE (08:15)
[2019-05-16] MEDS: Baclofen TAB* 20 MG PO SCH ×4 (08:30→20:56)
[2019-05-16] MEDS: carBAMazepine TAB(*) 200 MG PO SCH ×2 (08:30→20:56)
[2019-05-16] MEDS ORDERED: Vancomycin Trough Check NOTE FOLLOW UP ONE (08:30)
[2019-05-16] MEDS: Oxybutynin TAB* 5 MG PO SCH ×2 (08:30→20:56)
[2019-05-16] MEDS ORDERED: Cefepime 1 GM in Dextrose(*) 1 GM/50 ML BAG IV SCH (09:00)
[2019-05-16] MEDS: Insulin LISPRO* 1 UNITS UNIT SUBCUT SCH ×4 (09:32→20:57)
[2019-05-16] MEDS: Pantoprazole IV* 40 MG IV SCH (11:02)
[2019-05-16] MEDS: Vancomycin(*) 750 MG in NS 0.9% 250 ML* 250 ML IVPB SCH (11:11)
[2019-05-16 12:03] LABS: Hematocrit 32 % (35-47); Hemoglobin 10.7 g/dL (12.0-16.0); Mean Corpuscular HGB Conc 34 g/dL (31-36); Mean Corpuscular Hemoglobin 30 pg (27-31); Mean Corpuscular Volume 88 fL (80-97); Mean Platelet Volume 8.7 fL (7.4-10.4); Platelet Count 191 10^3/uL (150-450); Red Blood Count 3.65 10^6 /uL (3.70-4.87); Red Cell Distribution Width 16 % (10-15); White Blood Count 13.1 10^3/uL (3.5-10.8)
--- NOTE | 2019-05-16 12:16 | PN ---
Subjective Date of Service: 05/16/19 Interval History: Pt was found to be lethargic, but able to take PO meds in AM, and noted by RN to have "tremors". At 11:00AM noted to be minimally responsive, nonverbal, with tremor in b/l UE's. She appears to be trying to open her eyes to voice, but otherwise cannot follows commands and is nonverbal. From review of record with Dr. Dudley, pt got PO Haldol and no known indication on why it was given apart for an RN note that pt as medicated for tachycardia last night. The day RN was not aware of pt receiving Haldol. This AM tachy at >100, temp 100.5, Cefepime initially ordered, but after d/w neuro re: seizure hx , was d/c'd Objective Active Medications: Acetaminophen (Tylenol Tab*) 650 mg PO Q4H PRN PRN Reason: PAIN Last Admin: 05/16/19 08:30 Dose: 650 mg Hydrocodone Bitart/Acetaminophen ([place] 5-325 Tab*) 1 tab PO Q6H PRN PRN Reason: PAIN Albuterol/Ipratropium (Duoneb (Albuterol 2.5 Mg/Ipratropium 0.5 Mg)) 1 neb INH Q2H PRN PRN Reason: SOB/WHEEZING Atorvastatin Calcium (Lipitor*) 40 mg PO BEDTIME [facility] Last Admin: 05/15/19 23:03 Dose: 40 mg Baclofen (Lioresal Tab*) 20 mg PO QID [facility] Last Admin: 05/16/19 11:54 Dose: Not Given Betamethasone/Clotrimazole (Lotrisone Cream*) 1 applic TOPICAL 2100 [facility] Last Admin: 05/15/19 23:06 Dose: 1 applic Carbamazepine (Tegretol Tab(*)) 200 mg PO BID [facility] Last Admin: 05/16/19 08:30 Dose: 200 mg Dextrose (Dextrose 50% Vial 50 Ml*) 25 ml IV PUSH .FOR FS < 60 - SS PRN PRN Reason: FS < 60 Enoxaparin Sodium (Lovenox(*)) 40 mg SUBCUT Q24H [facility] Last Admin: 05/15/19 17:02 Dose: 40 mg Gentamicin Sulfate (Gentamicin 0.1% Ointment*) 1 applic TOPICAL 2100 [facility] Stop: 06/03/19 21:01 Last Admin: 05/15/19 23:07 Dose: 1 applic Piperacillin Sod/Tazobactam (Sod 3.375 gm/ Sodium Chloride) 100 mls @ 25 mls/ hr IVPB Q8H [facility] Last Admin: 05/16/19 06:03 Dose: 25 mls/hr Vancomycin HCl 750 mg/ Sodium (Chloride) 250 mls @ 166.667 mls/hr IVPB Q12H [facility] Last Admin: 05/16/19 11:11 Dose: 75 mls/hr Lactated Ringer's (Lactated Ringers 1000 Ml Bag*) 1,000 mls @ 100 mls/hr IV ONCE ONE Stop: 05/16/19 18:14 Last Admin: 05/16/19 08:30 Dose: 100 mls/hr Cefepime HCl (Maxipime 1 Gm In Dextrose Duplex (*)) 1 gm in 50 mls @ 100 mls/ hr IV Q12H [facility] Last Admin: 05/16/19 10:15 Dose: 100 mls/hr Insulin Human Lispro (Humalog*) 0 units SUBCUT [facility]; Protocol Last Admin: 05/16/19 09:32 Dose: Not Given Ondansetron HCl (Zofran Inj*) 4 mg IV Q6H PRN PRN Reason: NAUSEA Oxybutynin Chloride (Ditropan Tab*) 5 mg PO BID [facility] Last Admin: 05/16/19 08:30 Dose: 5 mg Pantoprazole Sodium (Protonix Iv*) 40 mg IV Q24H [facility] Last Admin: 05/16/19 11:02 Dose: Not Given Pharmacy Consult (Vancomycin Per Pharmacy*) 1 note FOLLOW UP .VANC PER PHARMACY [facility]; Protocol Pharmacy Consult (Zosyn Per Pharmacy*) 1 note FOLLOW UP .ZOSYN PER PHARMACY [facility] Pharmacy Profile Note (Vancomycin Trough Check) 1 note FOLLOW UP 0830 ONE Stop: 05/17/19 08:31 Vital Signs - 8 hr 05/16/19 05/16/19 05/16/19 07:15 10:13 11:11 Temperature 100.8 F 99.3 F 98.6 F Pulse Rate 108 110 Respiratory 20 24 Rate Blood Pressure 119/65 127/85 (mmHg) O2 Sat by Pulse 97 95 Oximetry Oxygen Devices in Use Now: None Appearance: 69 yo F , lying in bed inn NAD, minmally responsive-tries to open eyes to voice, otherwise not following commands. Eyes: No Scleral Icterus, PERRLA Ears/Nose/Mouth/Throat: NL Teeth, Lips, Gums, Mucous Membranes Moist Neck: NL Appearance and Movements; NL JVP, Trachea Midline Respiratory: Symmetrical Chest Expansion and Respiratory Effort, Clear to Auscultation Cardiovascular: NL Sounds; No Murmurs; No JVD, RRR Abdominal: NL Sounds; No Tenderness; No Distention Lymphatic: No Cervical Adenopathy Extremities: No Edema, No Clubbing, Cyanosis, - Skin: - - sacral decubs not examined today Neurological: - - R UE/hand contracted, R facial droop at baseline, b/l LE's weakness at baseline, b/l UE's tremor noted Result Diagrams: 05/16/19 11:48 05/16/19 11:48 Additional Lab and Data: Lab Results 05/14/19 Range/Units 02:31 Urine Color Nadia Urine Appearance Turbid Urine pH 5.0 (5-9) Ur Specific [place] 1.015 (1.010-1.030) Urine Protein 2+(100 mg/dl) A (Negative) Urine Ketones Negative (Negative) Urine Blood 2+ A (Negative) Urine Nitrate Negative (Negative) Urine Bilirubin Negative (Negative) Urine Urobilinogen Negative (Negative) Ur Leukocyte Esterase 3+ A (Negative) Urine WBC (Auto) 3+(>20/hpf) A (Absent) Urine RBC (Auto) 3+(>10/hpf) A (Absent) Urine Bacteria Absent (Absent) Urine Yeast Present A (Absent) Urine Glucose 3+(>=500 mg/dl) A (Negative) Microbiology and Other Data: Microbiology 05/14/19 02:31 Urine Culture - Preliminary Urine Pseudomonas Aeruginosa 05/14/19 03:23 Aerobic Blood Culture - Final Blood Venous Not Reportable Anaerobic Blood Culture - Final Not Reportable Blood Culture - Preliminary No Growth Day 1 05/14/19 03:06 Aerobic Blood Culture - Final Blood Venous Not Reportable Anaerobic Blood Culture - Final Not Reportable Blood Culture - Preliminary No Growth Day 1 Assess/Plan/Problems-Billing Assessment: 69 yo female with PMHx neurogenic bladder who self-caths, HTN, HLD, MS, DMT2, seizure disorder presents with hypotension altered mental status. - Patient Problems (1) Toxic metabolic encephalopathy Comment: In setting of UTI. Resolved inititally, but on 05/16/ AM pt became minimally responsive again. Appreciate DR. Dudley's consult Cefepime stopped, EEG pending. Neurochecks ordered (2) UTI (urinary tract infection) Comment: -was on Amoxycillin at home -cont Zosyn , vanc d/c'd(Urine cx positive for Pseudomonas) -ID consulted -afebrile (3) Nephrolithiasis Comment: with stent in left ureter and 6x4 mm stone in left kidney. D/w Dr. Eaton: Renal US/CT shows no hydronephrosis As per Dr. Eaton-no need for cystoscopy or stent removal/exchange unless pt becomes septic again. (4) Ruddy-neglect of right side Comment: -patient with bilateral LE weakness at baseline 2/2 MS, follows with Dr. Nur outpatient, --since end of March 2019 was noted to have R sided weakness and R facial droop -clinically CVa, but no MRI findings to prove that (5) Severe sepsis Comment: -The patient was severly septic on admission secondary to UTI (6) chronic wounds Comment: Sacral chronic wound - does not appear infected. Asked wound care to see pt. (7) DM2 (diabetes mellitus, type 2) Comment: - Holding home glipizide and pioglitazone - Continue Lispro SS (8) HTN (hypertension) Comment: normotensive today (9) Multiple sclerosis Comment: - Continue Baclofen and Tegretol (10) Neurogenic bladder Comment: Mcwilliams in place during hospital stay (11) DVT prophylaxis Comment: - lovenox SQ Status and Disposition: inpatient
[2019-05-16 12:44] LABS: BUN/Creatinine Ratio 13.5 (8-20); Calcium 8.2 mg/dL (8.6-10.3); EGFR African American 51.1 (>60); EGFR Non-African American 42.2 (>60); Magnesium 1.7 mg/dL (1.9-2.7); Potassium 4.1 mmol/L (3.5-5.0)
[2019-05-16] MEDS ORDERED: Magnesium Sulfate IV* 3 GM in NS 0.9% 100 ML* 100 ML IVPB ONE (13:06)
--- NOTE | 2019-05-16 13:29 | CONS ---
NEUROLOGY CONSULTATION NOTE: DATE OF CONSULT: 05/16/19 CONSULTING PROVIDER: Dr. Emma Kearney. REASON FOR CONSULT: Altered mental status. CHIEF COMPLAINT: Minimally responsive state. HISTORY OF PRESENT ILLNESS: Mrs. 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 The history was mostly obtained by the . According to the , the patient initially had relapsing remitting disease for about 20 years or she was receiving IV steroids every 5 years. She continued to progress and have frequent flare-ups requiring IV steroid therapy every 5 years. Approximately 20 years ago, she became wheelchair dependent and was having trouble ambulating. For approximately 15 years, the patient has been wheelchair bound. The patient during her good days is able to feed herself, but is dependent on majority of activities of daily living. The patient was most recently seen by Dr. Nur in late March 2019 where the patient had a similar episode of diminished responsiveness and right-sided weakness. Initially, it was thought that she may have had a stroke; however, with further evaluation there is no clear etiology other than a possible neurodegenerative disorder that may be contributing to her neurological findings. Today, Mr. Em stated that last night the patient was starting to manifest with abnormal movements of the arms and became less responsive. However, she was able to open her eyes, follow command and take medications via p.o. this morning. She was reported by the bedside nurse last night that she was drowsy, but stated her name and date of . She knows where she is at all the time. Seizure precautions was put in place last night. I am not quite sure why, but the patient had received Haldol tablet 5 mg at 2 o'clock this morning. Again, there is no clear indication to why she required Haldol overnight. Today , the patient was infused with cefepime at 10:15 a.m. At approximately 11 a.m. , the patient was noted to be unresponsive. She was not following command. She nods her head yes. She has abnormal movements of bilateral upper extremities. She would not open her eyes. Her stated that she usually would open the right eye more than the left eye and for the past month, she has trouble moving the right arm. She did not receive any other new medications except for vancomycin and Zosyn. Please note that her urine cultures came back positive for Pseudomonas. The patient has spontaneous activity of the arms, moving the left arm with an extension and shoulder abduction motion and having some rhythmic movements of the right arm lasting for 3-5 seconds with a frequency of 1 episode every 3-5 minutes. There is no eye deviation. PAST MEDICAL HISTORY: Multiple sclerosis, neurogenic bladder, nephrolithiasis with left ureteral stent in February 2019, hypertension, dyslipidemia, diabetes, seizure disorder. Apparently, the patient has not had any seizures for years. PAST SURGICAL HISTORY: Left breast lumpectomy, left ureteral stent and lithotripsy. ALLERGIES: LISINOPRIL and SULFA. FAMILY HISTORY: Significant for diabetes in her father and mother of leukemia. SOCIAL HISTORY: Former smoker, quit 50 years ago. No alcohol. She lives with her . REVIEW OF SYSTEMS: Unable to obtain as the patient is lethargic and minimally responsive by nodding her head yes or no. PHYSICAL EXAM: Vitals: Temperature of 98.6, but she was febrile at 100.8 earlier; pulse of 110; respiratory rate of 24; oxygen saturation of 95%; blood pressure of 127/85. General: Ill appearing frail female, in no acute distress. Her eyes are closed. Head: Atraumatic, normocephalic. Eyes: Conjunctivae/corneas are clear. Neck is supple and symmetrical with no carotid bruit. Cardiovascular: Tachycardia with no murmurs. Respiratory: Clear to auscultation bilaterally with no wheezing or rhonchi. Skin: No skin lesions or lacerations. Extremities: Thin, frail appearing with restricted range of motion and no spasticity. Psych: Unable to assess. Neurological Examination: Mental Status: The patient appears to be awake, but her eyes are closed. She does nod yes when she is asked if her name is Galbang. She does not really cooperate with the examiner. Unable to assess her speech and language functions because of poor verbal output. Cranial Nerves: Pupils equal, round, reactive to light, she tries to close her eyes tightly when examined. Unable to assess for any sensation loss in the face, but she does have a slight droop on the right side of the face. Motor Examination: She has flaccidity in all 4 extremities, but she spontaneously shakes the right arm while it is in a flexor positioning. She is able to lift the left arm up against her head spontaneously. She has no movements in the lower extremities. Sensation: She grimaced to distal noxious stimuli in the upper extremity. Coordination and gait were not assessed due to the patient's restricted mobility. DIAGNOSTIC STUDIES/LAB DATA: Labs, imaging, and other diagnostic testing: Glucose is 293, WBC was 13 and it dropped to 9.5, hemoglobin of 10, hematocrit of 31, platelets of 161,000. Initially when the patient presented, she had calcium level of 7.4, phosphorus of 2.2, magnesium of 1.4. I reviewed the MRI imaging that were obtained in March 2019. The patient has extensive cortical atrophy that seems to be predominantly involving the left frontal and parietal region. CT head was obtained on 05/14/19 and showed no evidence of acute intracranial abnormalities. ASSESSMENT AND RECOMMENDATIONS: Mrs. Lucretia Em is a 69-year-old female with most likely secondary progressive multiple sclerosis, who presents with recurrent urinary tract infections. Overnight, the patient had developed some increased confusion and was given Haldol at 2 a.m. for an unclear etiology. This morning, she was able to awake and take her p.o. medications, but approximately an hour following her antibiotic regimen, she became completely encephalopathic and was responding to simple minimal command. The patient has noticed a significant change this morning. 1. Acute encephalopathy: Multifactorial. Likely related to antibiotic therapy , infection, but we need to rule out any potential subclinical seizures. We have ordered a stat EEG. We will hold off on any IV antiseizure medications at this time unless the EEG is significantly abnormal. I have contacted the invasive cardiovascular technologist who will be doing this study as soon as possible. In the meantime, I recommend continuing the home dose of carbamazepine.. Please discontinue cefepime. Please continue baclofen therapy to make sure that we prevent any baclofen withdrawal. Hopefully, her mentation improves, so she can take p.o. medications, otherwise she may need a NG tube placement for some of her home medications. I will order a CT after the EEG results. If we see increase in epileptiform discharges or possible seizures, no intracranial imaging is warranted after that since we would have a firm diagnosis. Defer treatment of the urinary tract infection to the primary team. Dr. Brewer has been consulted. I will repeat a CMP this morning to make sure her calcium, phosphorus, and magnesium levels are within normal range given the electrolyte derangement on the CMP seen yesterday. I discussed these recommendations with Dr. Kearney and Mr. Em. We all agree with the plan. I will continue to follow closely. I also contacted Dr. Nur and will discuss the case with him in detail since this is his patient in outpatient setting. [id number]/[facility] #: [id number] MTDD
--- NOTE | 2019-05-16 15:43 | CONSULT ---
Subjective Date of Service: 05/16/19 Interval History: Ms. Em is a 68 yo female with PMH significant for DM2, breast CA, MS with neurogenic bladder, recurrent UTI, and stage 2 pressure injury to her buttocks; who presented to the emergency room for altered mental status. She was found to have a UTI. She presented to the hospital with a stage 2 pressure injury to her bilateral buttocks. Sacral wound has been present off and on for awhile; mostly healing, and then opens again. Mr. Em states that he has been using a combination of gentamycin ointment and clotrimazole cream, followed by calcium alginate, and dry dressing and hypafix tape to her pressure injury at home. Patient seen and examined at bedside. Family History: Unchanged from Admission Social History: Unchanged from Admission Past Medical History: Unchanged from Admission Review of Systems - Measurements Intake and Output: Intake and Output Last 24 Hours 05/14/19 05/15/19 05/16/19 05/17/19 06:59 06:59 06:59 06:59 Intake Total 4 5428 790 50 Output Total 2024 2550 1250 Balance 4 3403 -1760 -1200 Weight 135 lb 132 lb 1.6 oz Intake: IV Fluids 4 5377 100 ABX - ZOSYN 100 NS (0.9%) 2026 IVPB 51 ABX - ZOSYN 51 Oral 0 690 50 Output: [place]willi[place] 2024 2550 1250 - Review of Systems Constitutional Symptoms: Negative: Fever, Other - Chills Dermatology: Positive: Other - Chronic wounds to buttocks Objective Active Medications: Acetaminophen (Tylenol Tab*) 650 mg PO Q4H PRN Reason: PAIN Hydrocodone Bitart/Acetaminophen ([place] 5-325 Tab*) 1 tab PO Q6H PRN Reason: PAIN Albuterol/Ipratropium (Duoneb (Albuterol 2.5 Mg/Ipratropium 0.5 Mg)) 1 neb INH Q2H PRN Reason: SOB/WHEEZING Atorvastatin Calcium (Lipitor*) 40 mg PO BEDTIME [facility] Baclofen (Lioresal Tab*) 20 mg PO QID [facility] Betamethasone/Clotrimazole (Lotrisone Cream*) 1 applic TOPICAL 2100 [facility] Carbamazepine (Tegretol Tab(*)) 200 mg PO BID [facility] Dextrose (Dextrose 50% Vial 50 Ml*) 25 ml IV PUSH .FOR FS < 60 - SS PRN Reason : FS < 60 Enoxaparin Sodium (Lovenox(*)) 40 mg SUBCUT Q24H [facility] Gentamicin Sulfate (Gentamicin 0.1% Ointment*) 1 applic TOPICAL 2100 [facility] Stop: 06/03/19 21:01 Heparin Sodium (Porcine) (Heparin Flush Picc/Ml/Cvc(*)) 1 - 3 ml FLUSH 0600, 1800 [facility]; Protocol Piperacillin Sod/Tazobactam (Sod 3.375 gm/ Sodium Chloride) 100 mls @ 25 mls/ hr IVPB Q8H [facility] Lactated Ringer's (Lactated Ringers 1000 Ml Bag*) 1,000 mls @ 100 mls/hr IV ONCE ONE Stop: 05/16/19 18:14 Insulin Human Lispro (Humalog*) 0 units SUBCUT ACHS [facility]; Protocol Ondansetron HCl (Zofran Inj*) 4 mg IV Q6H PRN Reason: NAUSEA Oxybutynin Chloride (Ditropan Tab*) 5 mg PO BID [facility] Pantoprazole Sodium (Protonix Iv*) 40 mg IV Q24H [facility] Vital Signs - 8 hr 05/16/19 05/16/19 05/16/19 08:00 10:13 11:11 Temperature 99.3 F 98.6 F Pulse Rate 110 Respiratory 24 24 Rate Blood Pressure 127/85 (mmHg) O2 Sat by Pulse 95 Oximetry Oxygen Devices in Use Now: None Appearance: NAD, laying in bed Respiratory: Symmetrical Chest Expansion and Respiratory Effort Skin: - - See skin note below Neurological: - - Drowsy Result Diagrams: 05/21/19 06:30 05/21/19 06:30 Additional Lab and Data: Above labs were pulled into the note, when note was edited prior to signing. See below for labs from the day of consultation. Laboratory Tests 05/14/19 05/16/19 05/16/19 03:06 11:48 11:48 WBC 13.1 H Hgb 10.7 L Hct 32 L Plt Count 191 Sodium 134 L Potassium 4.1 Chloride 107 Carbon Dioxide 20 L BUN 17 Creatinine 1.26 H Glucose 274 H Total Protein 7.7 Albumin 3.9 Skin Deviation Note - Skin Deviation Findings Buttocks - Left buttock with open area, measures 0.5 cm x 1 cm x 0.1 cm. The wound base is red granulation tissue. The surrounding skin is intact with some scar tissue and slight erythema. There is no drainage. Right buttock with open area, measures 0.3 cm x 0.6 cm x 0.1 cm. The wound base is red granulation tissue. The surrounding skin is intact, slight erythema. There is no drainage. Wound Problem/Plan Assessment: Ms. Em is a 68 yo female with PMH significant for DM2, breast CA, MS with neurogenic bladder, recurrent UTI, and stage 2 pressure injury to her buttocks; who presented to the emergency room for altered mental status. She presented to the hospital with a stage 2 pressure injury to her bilateral buttocks. 1. Pressure injury, stage 2 to bilateral buttocks/upper sacrum. Recommend applying Gentamycin ointment mixed with clotrimazole cream to the wound and area around the wound, followed by calcium alginate and an ABD pad folded in half. Use Hypafix tape only on the skin, do not tape all the way around the dressing. Change dressing every other day or as needed for soiling. Incontinence care as needed. Frequent turning and repositioning. Use lifting devices to move in bed. 2. MS with neurogenic bladder and recurrent UTIs. 3. Diabetes Mellitus, type 2. Maintain good glycemic control to help with wound healing. 4. Diet. Consistent Carbohydrate diet. 5. Code Status. Full Code Status. 6. Disposition. Inpatient, disposition per primary medicine team. Is Patient a Wound Clinic Patient: Yes - Adriana Castro NP Current Treatment: Combination of gentamycin ointment and clotrimazole cream, followed by calcium alginate, and dry dressing and hypafix tape. Comment: Last visit 05/08/19 Counseling and/or Coordination of Care Minutes: 35 Points of Discussion: TIME SPENT: Time for this wound consultation was 35 minutes and 25 minutes was spent with the patient and discussing past medical history; removing the old dressing; assessing, measuring, and photographing the wounds; and reapplying a dressing. Attending: Tamar Ramsey
[2019-05-16] MEDS: Enoxaparin(*) 40 MG/0.4 ML SYR SUBCUT SCH (17:15)
[2019-05-16] MEDS: Clotrimazole/Betamethasone CREAM* 15 GM TOPICAL SCH (20:18)
[2019-05-16] MEDS: GENTAMICIN 0.1% TOPICAL SCH (20:23)
[2019-05-16] MEDS: Atorvastatin* 40 MG TAB PO SCH (20:57)
--- NOTE | 2019-05-16 21:35 | EEG ---
ELECTROENCEPHALOGRAPHY: DATE OF STUDY: 05/16/19 - ROOM #[id number] DATE READ: 05/16/19 MEDICATIONS: 1. Humalog. 2. Zosyn. 3. Lovenox. 4. Lipitor. 5. Tegretol. 6. Amoxapine. 7. Gentamicin. 8. Ditropan. 9. Vancomycin. 10. Protonix. 11. Tylenol. 12. Albuterol. 13. Dextrose. 14. Hydrocodone. 15. Zofran. CLINICAL PROBLEM: Mrs. Lucretia Em is a 69-year-old female with secondary progressive multiple sclerosis, who has abnormal movements. This EEG was requested to evaluate for epileptiform discharges or electrographic seizures. DURATION: 1203 - 1306. CLINICAL STATE: Awake and drowsiness. REPORT: The majority of this recording was obtained in drowsy state. During that time, the background consisted of a mixed frequency slowing in the delta and theta range with retained organization and discernable anterior-posterior voltage gradients. Upon awakening, there was a slow waking background rhythm of 7 Hz, which was symmetric and showed normal reactivity. During drowsiness, there was attenuation of the occipital rhythm with high multifocal sharply contoured waves seen in the left frontal region and right temporal region. These were maximally seen at T6 and FP1 and F3. There was slightly greater delta slowing over the left hemisphere. There were no electrographic seizures. The technologist reported that the patient was moving the right arm in a semi- rhythmic pattern. There were no electrographic seizures during this movement. Hyperventilation and photic stimulation were not performed. Throughout the recording, there were no electrographic seizures. CLINICAL IMPRESSION: This is an abnormal awake and drowsy EEG due to a slow posterior dominant rhythm with sharply contoured waves, multifocal sharply contoured theta waves seen throughout the recording predominantly in the right temporal and left frontal region. There was a greater delta slowing seen over the left hemisphere. These findings are suggestive of multifocal neuronal dysfunction in a patient with known secondary progressive multiple sclerosis with a greater neuronal dysfunction involving the left hemisphere. The overall background is suggestive of a mild-moderate global nonspecific encephalopathy. There were no electrographic seizures during this recording. The patient did have an episode where she was moving her right upper extremity in a semi- rhythmic pattern without any evidence of electrographic correlation. [id number]/[facility] #: [id number] [facility]
[2019-05-17] MEDS: Acetaminophen TAB* 325 MG PO PRN (03:31)
[2019-05-17] MEDS ORDERED: Labetalol IV* 5 MG/ML 20 ML VIAL IV PUSH ONE (04:00)
[2019-05-17] MEDS: ZOSYN 3.375 GM Q8H per EXTENDED INFUSION IVPB SCH ×6 (04:40→21:03)
[2019-05-17 05:27] LABS: ABS Eosinophils 0.1 10^3/ul (0-0.6); ABS Lymphocytes 1.1 10^3/ul (1.0-4.8); ABS Monocytes 1.2 10^3/ul (0-0.8); ABS Neutrophils 8.6 10^3/ul (1.5-7.7); Eosinophil % 1.2 %; Hematocrit 31 % (35-47); Hemoglobin 10.1 g/dL (12.0-16.0); Lymphocyte % 10.3 %; Mean Corpuscular HGB Conc 33 g/dL (31-36); Mean Corpuscular Hemoglobin 29 pg (27-31); Mean Corpuscular Volume 89 fL (80-97); Mean Platelet Volume 8.7 fL (7.4-10.4); Nucleated Red Blood Cells % 0.1; Platelet Count 187 10^3/uL (150-450); Red Blood Count 3.47 10^6 /uL (3.70-4.87); Red Cell Distribution Width 16 % (10-15); White Blood Count 11.1 10^3/uL (3.5-10.8)
[2019-05-17 05:44] LABS: BUN/Creatinine Ratio 11.9 (8-20); C Reactive Protein 184.8 mg/L (<8.01); Calcium 7.9 mg/dL (8.6-10.3); EGFR African American 60.4 (>60); EGFR Non-African American 49.9 (>60); Magnesium 2.1 mg/dL (1.9-2.7); Potassium 3.8 mmol/L (3.5-5.0)
[2019-05-17] MEDS ORDERED: Vancomycin Trough Check NOTE FOLLOW UP ONE (08:30)
[2019-05-17] MEDS: Insulin LISPRO* 1 UNITS UNIT SUBCUT SCH ×4 (09:26→21:51)
[2019-05-17] MEDS: Oxybutynin TAB* 5 MG PO SCH ×2 (09:27→21:03)
[2019-05-17] MEDS: carBAMazepine TAB(*) 200 MG PO SCH ×2 (09:27→21:02)
[2019-05-17] MEDS: Baclofen TAB* 20 MG PO SCH ×4 (09:38→21:52)
[2019-05-17] MEDS ORDERED: Fluconazole 400 MG IVPREMIX(*) 400 MG/200 ML BAG IVPB SCH (10:00)
[2019-05-17] MEDS: Fluconazole 200 MG IVPREMIX(*) 200 MG/100 ML BAG IVPB SCH (10:32)
--- NOTE | 2019-05-17 11:14 | CONS ---
CONSULTATION REPORT: DATE OF CONSULTATION: 05/17/19 REQUESTING PHYSICIAN: Dr. Kearney. CONSULTING SERVICE: Infectious Disease. REASON FOR CONSULTATION: Urinary tract infection. IMPRESSION: 1. Encephalopathy present on admission, likely multifactorial including urinary tract infection. 2. Multiple sclerosis with neurogenic bladder and intermittent self catheterization and left ureteral stent. The urine culture is growing Pseudomonas and Kim. She was admitted at the end of March as well and had grown Pseudomonas and Enterococcus at that time in the urine. She had been on amoxicillin as an outpatient. 3. History of recurrent urinary tract infections, often with different organisms. 4. Seizure disorder. 5. Hypertension. 6. Diabetes. RECOMMENDATIONS: Continue Zosyn, which does not have good [employer] penetration and should not impact her seizure threshold. We will add fluconazole to cover Kim given her 's description of white chunks in her catheter over the last few days before coming to the hospital and her history of fairly extensive Kim related to stent infection in the past. This will affect her carbamazepine level, so will need to follow levels. HISTORY OF PRESENT ILLNESS: This is a 69-year-old woman with neurogenic bladder , intermittent left ureteral stent over the last few months for nephrolithiasis. According to her , she has had some intermittent fluctuation in her mental status, around the time started noticing white chunks from the straight catheter in the urine. She then became more persistently less responsive, so he brought her to the hospital on the . She had a white count of 13,000. She had no fever at that time. She was started on Zosyn and vancomycin. Urine culture came back growing Pseudomonas and Kim albicans. Blood culture was negative. She stopped vancomycin yesterday. She had a dose of cefepime. There was a question of seizure activity subsequently. She remains on Zosyn now. She had a low grade fever of 37.8 overnight. She does not provide much of the history, which is obtained instead from her . PAST MEDICAL HISTORY: 1. Multiple sclerosis and neurogenic bladder, intermittent self catheterization. 2. Nephrolithiasis, history of hydronephrosis and currently a left ureteral stent. 3. Type 2 diabetes mellitus. 4. Hypertension. 5. Hyperlipidemia. 6. Seizure disorder. 7. History of left breast lumpectomy. MEDICATIONS: 1. Tylenol. 2. Lipitor. 3. Baclofen. 4. Tegretol. 5. Enoxaparin. 6. Topical gentamicin. 7. Hydrocodone as needed. 8. Zofran as needed. 9. Oxybutynin. 10. Pantoprazole. 11. Zosyn 3.375 g IV every 8 hours. ALLERGIES: LISINOPRIL causes swelling. SULFA, they are not sure of the reaction. FAMILY HISTORY: Father had diabetes, mother from leukemia. SOCIAL HISTORY: She lives with her . She is a nonsmoker. REVIEW OF SYSTEMS: Unable to obtain given her mental status. PHYSICAL EXAM: Vital Signs: Temperature 37.8, heart rate 115, respiratory rate 20, blood pressure 185/97, oxygen saturation 99% on room air. In general, she is not in distress. Neurologic: She is awake until I enter the room, she stops responding until her gets part of the history wrong when she opens her eyes and interjects with correct information. She can otherwise move all her extremities when asked to do so and answers most questions appropriately. HEENT: There is no conjunctival hemorrhage. Oropharynx without lesions. Neck is supple without mass. Heart is regular and tachycardic without murmurs. Lungs are clear to auscultation bilaterally. Abdomen is soft, nontender. There is no flank tenderness to palpation. There is no suprapubic tenderness to palpation. Skin: There is no rash or splinter hemorrhage. Musculoskeletal: No spine tenderness to palpation. DIAGNOSTIC STUDIES/LAB DATA: White blood cell count 11, hemoglobin 10, platelets 187,000. Creatinine is 1. CRP 185. Please see impressions and recommendations outlined above. Thank you for asking me to see Ms. Em in consultation. [id number]/[facility] #: [id number] TORI
[2019-05-17] MEDS: Pantoprazole IV* 40 MG IV SCH (11:53)
[2019-05-17] MEDS: Enoxaparin(*) 40 MG/0.4 ML SYR SUBCUT SCH (16:00)
[2019-05-17] MEDS: Atorvastatin* 40 MG TAB PO SCH (21:02)
--- NOTE | 2019-05-17 21:48 | PN ---
Subjective Date of Service: 05/17/19 Interval History: Pt is doing slightly better today per her . She does c/o mild pain in her buttocks. Her notes that the patient continues to have R sided weakness, R facial droop and mild dysarthria. This has been present for aoubt 2- 3 months. Objective Active Medications: Acetaminophen (Tylenol Tab*) 650 mg PO Q4H PRN PRN Reason: PAIN Last Admin: 05/17/19 03:31 Dose: 650 mg Albuterol/Ipratropium (Duoneb (Albuterol 2.5 Mg/Ipratropium 0.5 Mg)) 1 neb INH Q2H PRN PRN Reason: SOB/WHEEZING Atorvastatin Calcium (Lipitor*) 40 mg PO BEDTIME [facility] Last Admin: 05/17/19 21:02 Dose: 40 mg Baclofen (Lioresal Tab*) 20 mg PO QID [facility] Last Admin: 05/17/19 17:31 Dose: 20 mg Betamethasone/Clotrimazole (Lotrisone Cream*) 1 applic TOPICAL 2100 [facility] Last Admin: 05/16/19 20:18 Dose: 1 applic Carbamazepine (Tegretol Tab(*)) 200 mg PO BID [facility] Last Admin: 05/17/19 21:02 Dose: 200 mg Dextrose (Dextrose 50% Vial 50 Ml*) 25 ml IV PUSH .FOR FS < 60 - SS PRN PRN Reason: FS < 60 Enoxaparin Sodium (Lovenox(*)) 40 mg SUBCUT Q24H [facility] Last Admin: 05/17/19 16:00 Dose: 40 mg Gentamicin Sulfate (Gentamicin 0.1% Ointment*) 1 applic TOPICAL 2100 [facility] Stop: 06/03/19 21:01 Last Admin: 05/16/19 20:23 Dose: 1 applic Heparin Sodium (Porcine) (Heparin Flush Picc/Ml/Cvc(*)) 1 - 3 ml FLUSH 0600, 1800 [facility]; Protocol Last Admin: 05/17/19 17:50 Dose: 2 ml Piperacillin Sod/Tazobactam (Sod 3.375 gm/ Sodium Chloride) 100 mls @ 25 mls/ hr IVPB Q8H [facility] Last Admin: 05/17/19 21:03 Dose: 25 mls/hr Fluconazole/Sodium Chloride (Diflucan 200 Mg Ivpremix(*)) 200 mg in 100 mls @ 100 mls/hr IVPB Q24H [facility] Last Admin: 05/17/19 10:32 Dose: 100 mls/hr Insulin Human Lispro (Humalog*) 0 units SUBCUT ACHS [facility]; Protocol Last Admin: 05/17/19 17:30 Dose: 6 units Oxybutynin Chloride (Ditropan Tab*) 5 mg PO BID [facility] Last Admin: 05/17/19 21:03 Dose: 5 mg Pantoprazole Sodium (Protonix Iv*) 40 mg IV Q24H [facility] Last Admin: 05/17/19 11:53 Dose: 40 mg Polyethylene Glycol/Electrolytes (Miralax*) 17 gm PO DAILY PRN PRN Reason: CONSTIPATION Vital Signs - 8 hr 05/17/19 05/17/19 15:01 18:45 Temperature 98.2 F 98.1 F Pulse Rate 96 111 Respiratory 16 16 Rate Blood Pressure 143/73 125/67 (mmHg) O2 Sat by Pulse 100 97 Oximetry Oxygen Devices in Use Now: None Appearance: MIddle aged chronically ill appearing female sitting up in bed, NAD Eyes: No Scleral Icterus Ears/Nose/Mouth/Throat: Mucous Membranes Moist Respiratory: Symmetrical Chest Expansion and Respiratory Effort, Clear to Auscultation - anteriorly Cardiovascular: NL Sounds; No Murmurs; No JVD, RRR Abdominal: NL Sounds; No Tenderness; No Distention Extremities: No Clubbing, Cyanosis Neurological: - - Slightly sleepy but awakens easily, tries to communicate some. Speech is mild to moderately dysarthric. Result Diagrams: 05/17/19 04:45 05/17/19 04:45 Additional Lab and Data: Lab Results 05/14/19 Range/Units 02:31 Urine Color Nadia Urine Appearance Turbid Urine pH 5.0 (5-9) Ur Specific [place] 1.015 (1.010-1.030) Urine Protein 2+(100 mg/dl) A (Negative) Urine Ketones Negative (Negative) Urine Blood 2+ A (Negative) Urine Nitrate Negative (Negative) Urine Bilirubin Negative (Negative) Urine Urobilinogen Negative (Negative) Ur Leukocyte Esterase 3+ A (Negative) Urine WBC (Auto) 3+(>20/hpf) A (Absent) Urine RBC (Auto) 3+(>10/hpf) A (Absent) Urine Bacteria Absent (Absent) Urine Yeast Present A (Absent) Urine Glucose 3+(>=500 mg/dl) A (Negative) Microbiology and Other Data: Microbiology 05/14/19 02:31 Urine Culture - Preliminary Urine Pseudomonas Aeruginosa 05/14/19 03:23 Aerobic Blood Culture - Final Blood Venous Not Reportable Anaerobic Blood Culture - Final Not Reportable Blood Culture - Preliminary No Growth Day 1 05/14/19 03:06 Aerobic Blood Culture - Final Blood Venous Not Reportable Anaerobic Blood Culture - Final Not Reportable Blood Culture - Preliminary No Growth Day 1 Assess/Plan/Problems-Billing 69 yo female with PMHx neurogenic bladder who self-caths, HTN, HLD, MS, DMT2, seizure disorder presents with hypotension altered mental status. - Patient Problems (1) Sepsis Current Visit: Yes Status: Acute Comment: Pt was septic on admission secondary to pseudomonas UTI. HR and temp improved but now slightly worse. Will monitor for new source of infection. Pt's states there has been no choking or coughing. She does have decubitus ulcers on her buttocks but per improving. (2) UTI (urinary tract infection) Current Visit: Yes Status: Acute Priority: High Comment: Appreciate ID consult. Continue zosyn for tx of pseudomonas UTI. Monitor temp as she had a low grade fever earlier today. (3) DM2 (diabetes mellitus, type 2) Current Visit: Yes Status: Chronic Priority: Medium Comment: Blood sugars have been quite elevated. Resume home dose of glipizide tomorrow. (4) HTN (hypertension) Current Visit: Yes Status: Chronic Priority: Medium Code(s): I10 - ESSENTIAL (PRIMARY) HYPERTENSION SNOMED Code(s): 59704023 Comment: BP has fluctuated quite a bit. Resume metoprolol but at half dose tomorrow. (5) DVT prophylaxis Current Visit: Yes Status: Acute Priority: Low Code(s): [id number] - SNOMED Code(s): 492675354 Comment: lovenox (6) Full code status Current Visit: Yes Status: Acute Code(s): Z78.9 - OTHER SPECIFIED HEALTH STATUS SNOMED Code(s): 004294384 Comment: Status and Disposition: .
[2019-05-17] MEDS: Clotrimazole/Betamethasone CREAM* 15 GM TOPICAL SCH (22:17)
[2019-05-17] MEDS: GENTAMICIN 0.1% TOPICAL SCH (22:17)
[2019-05-18] MEDS: Acetaminophen TAB* 325 MG PO PRN (02:07)
[2019-05-18] MEDS: Polyethylene Glycol 3350* 17 GM PACKET PO PRN (04:03)
[2019-05-18] MEDS: ZOSYN 3.375 GM Q8H per EXTENDED INFUSION IVPB SCH ×6 (04:34→20:59)
[2019-05-18] MEDS ORDERED: Metoprolol Succinate XL TAB* 50 MG PO SCH (09:00)
[2019-05-18] MEDS: Oxybutynin TAB* 5 MG PO SCH ×2 (10:24→20:58)
[2019-05-18] MEDS: carBAMazepine TAB(*) 200 MG PO SCH ×2 (10:24→20:58)
[2019-05-18] MEDS: Baclofen TAB* 20 MG PO SCH ×4 (10:24→20:58)
[2019-05-18] MEDS: glipiZIDE TAB.XL* 5 MG PO SCH ×2 (10:25→20:59)
[2019-05-18] MEDS: Insulin LISPRO* 1 UNITS UNIT SUBCUT SCH ×4 (10:26→21:17)
[2019-05-18] MEDS: Pantoprazole IV* 40 MG IV SCH (10:27)
[2019-05-18] MEDS: Fluconazole 200 MG IVPREMIX(*) 200 MG/100 ML BAG IVPB SCH (10:27)
--- NOTE | 2019-05-18 15:19 | PN ---
Subjective Date of Service: 05/18/19 Interval History: Pt states she is feeling bad. She c/o pain in her buttocks. She only states repeatedly that she feels bad and that her "butt hurts." Objective Active Medications: Acetaminophen (Tylenol Tab*) 650 mg PO Q4H PRN PRN Reason: PAIN Last Admin: 05/18/19 02:07 Dose: 650 mg Albuterol/Ipratropium (Duoneb (Albuterol 2.5 Mg/Ipratropium 0.5 Mg)) 1 neb INH Q2H PRN PRN Reason: SOB/WHEEZING Atorvastatin Calcium (Lipitor*) 40 mg PO BEDTIME [facility] Last Admin: 05/17/19 21:02 Dose: 40 mg Baclofen (Lioresal Tab*) 20 mg PO QID [facility] Last Admin: 05/18/19 12:57 Dose: 20 mg Betamethasone/Clotrimazole (Lotrisone Cream*) 1 applic TOPICAL 2100 [facility] Last Admin: 05/17/19 22:17 Dose: Not Given Carbamazepine (Tegretol Tab(*)) 200 mg PO BID [facility] Last Admin: 05/18/19 10:24 Dose: 200 mg Dextrose (Dextrose 50% Vial 50 Ml*) 25 ml IV PUSH .FOR FS < 60 - SS PRN PRN Reason: FS < 60 Enoxaparin Sodium (Lovenox(*)) 40 mg SUBCUT Q24H [facility] Last Admin: 05/17/19 16:00 Dose: 40 mg Gentamicin Sulfate (Gentamicin 0.1% Ointment*) 1 applic TOPICAL 2100 [facility] Stop: 06/03/19 21:01 Last Admin: 05/17/19 22:17 Dose: Not Given Glipizide (Glucotrol Xl*) 10 mg PO BID [facility] Last Admin: 05/18/19 10:25 Dose: 10 mg Heparin Sodium (Porcine) (Heparin Flush Picc/Ml/Cvc(*)) 1 - 3 ml FLUSH 0600, 1800 [facility]; Protocol Last Admin: 05/18/19 09:15 Dose: 3 ml Piperacillin Sod/Tazobactam (Sod 3.375 gm/ Sodium Chloride) 100 mls @ 25 mls/ hr IVPB Q8H [facility] Last Admin: 05/18/19 12:57 Dose: 25 mls/hr Fluconazole/Sodium Chloride (Diflucan 200 Mg Ivpremix(*)) 200 mg in 100 mls @ 100 mls/hr IVPB Q24H [facility] Last Admin: 05/18/19 10:27 Dose: 100 mls/hr Insulin Human Lispro (Humalog*) 0 units SUBCUT ACHS [facility]; Protocol Last Admin: 05/18/19 12:57 Dose: 4 units Metoprolol Succinate (Toprol Xl Tab*) 50 mg PO DAILY [facility] Last Admin: 05/18/19 10:24 Dose: 50 mg Oxybutynin Chloride (Ditropan Tab*) 5 mg PO BID [facility] Last Admin: 05/18/19 10:24 Dose: 5 mg Pantoprazole Sodium (Protonix Iv*) 40 mg IV Q24H [facility] Last Admin: 05/18/19 10:27 Dose: 40 mg Polyethylene Glycol/Electrolytes (Miralax*) 17 gm PO DAILY PRN PRN Reason: CONSTIPATION Last Admin: 05/18/19 04:03 Dose: 17 gm Vital Signs - 8 hr 05/18/19 05/18/19 05/18/19 07:30 08:05 12:40 Temperature 98.5 F 98.1 F Pulse Rate 101 79 Respiratory 19 20 18 Rate Blood Pressure 142/70 143/65 (mmHg) O2 Sat by Pulse 95 96 Oximetry Oxygen Devices in Use Now: None Appearance: Middle aged chronically ill female lying in bed, NAD Eyes: No Scleral Icterus Ears/Nose/Mouth/Throat: Mucous Membranes Moist Respiratory: Symmetrical Chest Expansion and Respiratory Effort, Clear to Auscultation - anteriorly Cardiovascular: NL Sounds; No Murmurs; No JVD, RRR, No Edema Abdominal: NL Sounds; No Tenderness; No Distention Extremities: No Clubbing, Cyanosis Skin: No Nodules or Sclerosis Neurological: - - alert, confused, speech less garbled today Result Diagrams: 05/17/19 04:45 05/17/19 04:45 Additional Lab and Data: Lab Results 05/14/19 Range/Units 02:31 Urine Color Nadia Urine Appearance Turbid Urine pH 5.0 (5-9) Ur Specific [place] 1.015 (1.010-1.030) Urine Protein 2+(100 mg/dl) A (Negative) Urine Ketones Negative (Negative) Urine Blood 2+ A (Negative) Urine Nitrate Negative (Negative) Urine Bilirubin Negative (Negative) Urine Urobilinogen Negative (Negative) Ur Leukocyte Esterase 3+ A (Negative) Urine WBC (Auto) 3+(>20/hpf) A (Absent) Urine RBC (Auto) 3+(>10/hpf) A (Absent) Urine Bacteria Absent (Absent) Urine Yeast Present A (Absent) Urine Glucose 3+(>=500 mg/dl) A (Negative) Microbiology and Other Data: Microbiology 05/14/19 02:31 Urine Culture - Preliminary Urine Pseudomonas Aeruginosa 05/14/19 03:23 Aerobic Blood Culture - Final Blood Venous Not Reportable Anaerobic Blood Culture - Final Not Reportable Blood Culture - Preliminary No Growth Day 1 05/14/19 03:06 Aerobic Blood Culture - Final Blood Venous Not Reportable Anaerobic Blood Culture - Final Not Reportable Blood Culture - Preliminary No Growth Day 1 Assess/Plan/Problems-Billing 69 yo female with PMHx neurogenic bladder who self-caths, HTN, HLD, MS, DMT2, seizure disorder presents with hypotension altered mental status. - Patient Problems (1) Sepsis Current Visit: Yes Status: Acute Comment: Pt was septic on admission secondary to pseudomonas and leelee UTI. HR better with resuming home metoprolol. Temp normal. (2) UTI (urinary tract infection) Current Visit: Yes Status: Acute Priority: High Comment: Continue zosyn and fluconazole. Maybe febrile yesterday as fluconazole just started. Duration of treatment per ID. (3) DM2 (diabetes mellitus, type 2) Current Visit: Yes Status: Chronic Priority: Medium Comment: Blood sugars remain elevated despite restarting glipizide today. Resume pioglitizone. (4) HTN (hypertension) Current Visit: Yes Status: Chronic Priority: Medium Code(s): I10 - ESSENTIAL (PRIMARY) HYPERTENSION SNOMED Code(s): 89892533 Comment: BP good today. Resume usual dose of metoprolol tomorrow. (5) DVT prophylaxis Current Visit: Yes Status: Acute Priority: Low Code(s): [id number] - SNOMED Code(s): 036030778 Comment: lovenox (6) Full code status Current Visit: Yes Status: Acute Code(s): Z78.9 - OTHER SPECIFIED HEALTH STATUS SNOMED Code(s): 762064928 Comment: Status and Disposition: .
--- NOTE | 2019-05-18 16:57 | PN ---
Subjective Date of Service: 05/18/19 Length of Stay: 4 Days Neurology is following for the episode of unresponsiveness. Interval History: She is more awake and interactive. She feels "bad." She denied any headaches. She perseverates the examiner. Mr. Em is concerned that her mentation is not improving. I discussed the case with Dr. Nur, her neurologist. I clarified that the patient has not had seizures in years. The carbamazepine is being used more for neuropathic pain. Previous labs: UA: yeast present, WBC 3+, leukocyte esterase 3+ Carbamazepine: 8.2 CRP: 184.80 Magnesium: 2.1 Sodium: 134 POC glucose: 344 Review of Systems: Denied CP, SOB, or palpitations. Objective Active Medications: Acetaminophen (Tylenol Tab*) 650 mg PO Q4H PRN PRN Reason: PAIN Last Admin: 05/18/19 02:07 Dose: 650 mg Albuterol/Ipratropium (Duoneb (Albuterol 2.5 Mg/Ipratropium 0.5 Mg)) 1 neb INH Q2H PRN PRN Reason: SOB/WHEEZING Atorvastatin Calcium (Lipitor*) 40 mg PO BEDTIME [facility] Last Admin: 05/17/19 21:02 Dose: 40 mg Baclofen (Lioresal Tab*) 20 mg PO QID [facility] Last Admin: 05/18/19 12:57 Dose: 20 mg Betamethasone/Clotrimazole (Lotrisone Cream*) 1 applic TOPICAL 2100 [facility] Last Admin: 05/17/19 22:17 Dose: Not Given Carbamazepine (Tegretol Tab(*)) 200 mg PO BID [facility] Last Admin: 05/18/19 10:24 Dose: 200 mg Dextrose (Dextrose 50% Vial 50 Ml*) 25 ml IV PUSH .FOR FS < 60 - SS PRN PRN Reason: FS < 60 Enoxaparin Sodium (Lovenox(*)) 40 mg SUBCUT Q24H [facility] Last Admin: 05/17/19 16:00 Dose: 40 mg Gentamicin Sulfate (Gentamicin 0.1% Ointment*) 1 applic TOPICAL 2100 [facility] Stop: 06/03/19 21:01 Last Admin: 05/17/19 22:17 Dose: Not Given Glipizide (Glucotrol Xl*) 10 mg PO BID [facility] Last Admin: 05/18/19 10:25 Dose: 10 mg Heparin Sodium (Porcine) (Heparin Flush Picc/Ml/Cvc(*)) 1 - 3 ml FLUSH 0600, 1800 [facility]; Protocol Last Admin: 05/18/19 09:15 Dose: 3 ml Piperacillin Sod/Tazobactam (Sod 3.375 gm/ Sodium Chloride) 100 mls @ 25 mls/ hr IVPB Q8H [facility] Last Admin: 05/18/19 12:57 Dose: 25 mls/hr Fluconazole/Sodium Chloride (Diflucan 200 Mg Ivpremix(*)) 200 mg in 100 mls @ 100 mls/hr IVPB Q24H [facility] Last Admin: 05/18/19 10:27 Dose: 100 mls/hr Insulin Human Lispro (Humalog*) 0 units SUBCUT ACHS [facility]; Protocol Last Admin: 05/18/19 12:57 Dose: 4 units Metoprolol Succinate (Toprol Xl Tab*) 100 mg PO DAILY WITH MEAL [facility] Oxybutynin Chloride (Ditropan Tab*) 5 mg PO BID [facility] Last Admin: 05/18/19 10:24 Dose: 5 mg Pantoprazole Sodium (Protonix Iv*) 40 mg IV Q24H [facility] Last Admin: 05/18/19 10:27 Dose: 40 mg Pioglitazone HCl (Actos Tab*) 30 mg PO DAILY [facility] Polyethylene Glycol/Electrolytes (Miralax*) 17 gm PO DAILY PRN PRN Reason: CONSTIPATION Last Admin: 05/18/19 04:03 Dose: 17 gm Vital Signs 05/17/19 05/17/19 05/17/19 18:45 20:00 23:40 Temperature 98.1 F 98.0 F Pulse Rate 111 108 Respiratory 16 16 16 Rate Blood Pressure 125/67 151/80 (mmHg) O2 Sat by Pulse 97 96 Oximetry 05/18/19 05/18/19 05/18/19 04:00 07:30 08:05 Temperature 98.5 F 98.5 F Pulse Rate 109 101 Respiratory 18 19 20 Rate Blood Pressure 134/83 142/70 (mmHg) O2 Sat by Pulse 94 95 Oximetry 05/18/19 05/18/19 12:40 15:38 Temperature 98.1 F 97.1 F Pulse Rate 79 87 Respiratory 18 16 Rate Blood Pressure 143/65 160/86 (mmHg) O2 Sat by Pulse 96 100 Oximetry Intake and Output Last 24 Hours 05/16/19 05/17/19 05/18/19 05/19/19 06:59 06:59 06:59 06:59 Intake Total 784 502 7027.7 760 Output Total 2550 2350 3500 3000 Balance -1760 -1940 -2104.3 -2240 Intake: IV Fluids 100 160 55.7 ABX - ZOSYN 100 160 55.7 IVPB 200 220 ABX - ZOSYN 200 220 Oral 337 25 4335 760 Output: Mcwilliams 2550 2350 3500 3000 Other: Estimated Void Large Large # Bowel Movements 2 Estimated Stool Amount Large Oxygen Devices in Use Now: None Neurology Exam: General: Ill appearing fragile female in no distress. HEENT: Normocephelic/atraumatic, sclera anicteric, mucous membranes moist Neck: Supple Neurological Findings: Awake, alert to self and . moderate-severe psychmotor slowing. Speech: severe spastic dysarthria Cranial Nerve: PERRL, EOM intact, mild right facial droop Motor: paraparetic. moves bilateral upper extremities spontaneously, left more than right. Sensation: withdrew to distal noxious stimuli in the upper extremities bilaterally Deep Tendon Reflex: absent reflexes throughout Does not cooperate with the examiner. Gait: bed bound Result Diagrams: 05/17/19 04:45 05/17/19 04:45 Additional Lab and Data: Lab Results 05/14/19 Range/Units 02:31 Urine Color Nadia Urine Appearance Turbid Urine pH 5.0 (5-9) Ur Specific [place] 1.015 (1.010-1.030) Urine Protein 2+(100 mg/dl) A (Negative) Urine Ketones Negative (Negative) Urine Blood 2+ A (Negative) Urine Nitrate Negative (Negative) Urine Bilirubin Negative (Negative) Urine Urobilinogen Negative (Negative) Ur Leukocyte Esterase 3+ A (Negative) Urine WBC (Auto) 3+(>20/hpf) A (Absent) Urine RBC (Auto) 3+(>10/hpf) A (Absent) Urine Bacteria Absent (Absent) Urine Yeast Present A (Absent) Urine Glucose 3+(>=500 mg/dl) A (Negative) Microbiology and Other Data: Microbiology 05/14/19 02:31 Urine Culture - Preliminary Urine Pseudomonas Aeruginosa 05/14/19 03:23 Aerobic Blood Culture - Final Blood Venous Not Reportable Anaerobic Blood Culture - Final Not Reportable Blood Culture - Preliminary No Growth Day 1 05/14/19 03:06 Aerobic Blood Culture - Final Blood Venous Not Reportable Anaerobic Blood Culture - Final Not Reportable Blood Culture - Preliminary No Growth Day 1 Assessment/Plan Mrs. 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 Neurology was involved due to sudden onset of unresponsive episode that was thought to be related to toxic and infectious encephalopathy
[2019-05-18] MEDS: Enoxaparin(*) 40 MG/0.4 ML SYR SUBCUT SCH (17:26)
[2019-05-18] MEDS: Atorvastatin* 40 MG TAB PO SCH (20:58)
[2019-05-19] MEDS: Clotrimazole/Betamethasone CREAM* 15 GM TOPICAL SCH ×3 (00:33→21:34)
[2019-05-19] MEDS: GENTAMICIN 0.1% TOPICAL SCH ×3 (00:34→21:34)
[2019-05-19] MEDS: ZOSYN 3.375 GM Q8H per EXTENDED INFUSION IVPB SCH ×6 (04:55→21:31)
[2019-05-19] MEDS: Insulin LISPRO* 1 UNITS UNIT SUBCUT SCH ×4 (08:21→21:29)
[2019-05-19] MEDS: Baclofen TAB* 20 MG PO SCH ×5 (08:24→21:26)
[2019-05-19] MEDS: glipiZIDE TAB.XL* 5 MG PO SCH ×3 (08:24→21:26)
[2019-05-19] MEDS: Metoprolol Succinate XL TAB* 100 MG PO SCH ×2 (08:25→09:31)
[2019-05-19] MEDS: carBAMazepine TAB(*) 200 MG PO SCH ×3 (08:25→21:28)
[2019-05-19] MEDS: Oxybutynin TAB* 5 MG PO SCH ×2 (08:25→21:26)
[2019-05-19] MEDS: Pioglitazone TAB* 30 MG PO SCH (09:31)
[2019-05-19] MEDS: Fluconazole 200 MG IVPREMIX(*) 200 MG/100 ML BAG IVPB SCH (09:47)
[2019-05-19] MEDS: Pantoprazole IV* 40 MG IV SCH (09:50)
[2019-05-19] MEDS: hydrALAZINE IV* 20 MG/ML VIAL IV SLOW PU PRN ×2 (09:58→16:34)
[2019-05-19] MEDS ORDERED: cloNIDine 0.2 MG PATCH* 0.2 MG/24 HR 7 DAY PATCH TRANSDERM SCH (10:00)
--- NOTE | 2019-05-19 11:01 | PN ---
Progress Note - Progress Note Date of Service: 05/19/19 SOAP: Subjective: CC: Encephalopathy in the setting of a UTI HPI: Ms. Em is a 69 yo female with PMH significant for MS, neurogenic bladder , DM2, HTN, and nephrolithiasis with left ureteral stent. Rena will open her eyes and shake her head no this AM, she will not answer questions. Her Tyrel is at bedside and states that she will drink this AM, but not take her pills or eat. Objective: Vital Signs - 8 hr 05/19/19 05/19/19 05/19/19 03:56 07:37 08:00 Temperature 97.3 F Pulse Rate 65 90 Respiratory 16 18 17 Rate Blood Pressure 158/87 174/88 (mmHg) O2 Sat by Pulse 94 Oximetry Physical Exam: General: NAD, sitting up in bed Neurological: Lethargic, opens eyes to voice HEENT: Moist MM, no thrush Cardiovascular: Heart rate regular Respiratory: Lung sounds clear Abdominal: Bowel sounds present; ABD large, soft, and non tender Skin: Dressing to the sacrum intact Laboratory Last Values WBC 11.1 10^3/uL (3.5-10.8) H 05/17/19 04:45 RBC 3.47 10^6 /uL (3.70-4.87) L 05/17/19 04:45 Hgb 10.1 g/dL (12.0-16.0) L 05/17/19 04:45 Hct 31 % (35-47) L 05/17/19 04:45 MCV 89 fL (80-97) 05/17/19 04:45 MCH 29 pg (27-31) 05/17/19 04:45 MCHC 33 g/dL (31-36) 05/17/19 04:45 RDW 16 % (10-15) H 05/17/19 04:45 Plt Count 187 10^3/uL (150-450) 05/17/19 04:45 MPV 8.7 fL (7.4-10.4) 05/17/19 04:45 Neut % (Auto) 77.8 % 05/17/19 04:45 Lymph % (Auto) 10.3 % 05/17/19 04:45 Villalba % (Auto) 10.4 % 05/17/19 04:45 Eos % (Auto) 1.2 % 05/17/19 04:45 Baso % (Auto) 0.3 % 05/17/19 04:45 Absolute Neuts (auto) 8.6 10^3/ul (1.5-7.7) H 05/17/19 04:45 Absolute Lymphs (auto) 1.1 10^3/ul (1.0-4.8) 05/17/19 04:45 Absolute Monos (auto) 1.2 10^3/ul (0-0.8) H 05/17/19 04:45 Absolute Eos (auto) 0.1 10^3/ul (0-0.6) 05/17/19 04:45 Absolute Basos (auto) 0.0 10^3/ul (0-0.2) 05/17/19 04:45 Absolute Nucleated RBC 0.0 10^3/ul 05/17/19 04:45 Nucleated RBC % 0.1 05/17/19 04:45 Sodium 134 mmol/L (135-145) L 05/17/19 04:45 Potassium 3.8 mmol/L (3.5-5.0) 05/17/19 04:45 Chloride 105 mmol/L (101-111) 05/17/19 04:45 Carbon Dioxide 21 mmol/L (22-32) L 05/17/19 04:45 Anion Gap 8 mmol/L (2-11) 05/17/19 04:45 BUN 13 mg/dL (6-24) 05/17/19 04:45 Creatinine 1.09 mg/dL (0.51-0.95) H 05/17/19 04:45 Est GFR ( Amer) 60.4 (>60) 05/17/19 04:45 Est GFR (Non-Af Amer) 49.9 (>60) 05/17/19 04:45 BUN/Creatinine Ratio 11.9 (8-20) 05/17/19 04:45 Glucose 206 mg/dL (70-100) H 05/17/19 04:45 POC Glucose (mg/dL) 173 mg/dL (70-100) H 05/19/19 07:43 Lactic Acid 0.9 mmol/L (0.5-2.0) 05/16/19 11:48 Calcium 7.9 mg/dL (8.6-10.3) L 05/17/19 04:45 Phosphorus 2.2 mg/dL (2.5-5.0) L 05/15/19 06:33 Magnesium 2.1 mg/dL (1.9-2.7) 05/17/19 04:45 Total Bilirubin 0.30 mg/dL (0.2-1.0) 05/14/19 03:06 AST 17 U/L (13-39) 05/14/19 03:06 ALT 12 U/L (7-52) 05/14/19 03:06 Alkaline Phosphatase 73 U/L (34-104) 05/14/19 03:06 Ammonia 30 mcmol/L (16-53) 05/16/19 11:17 C-Reactive Protein 184.80 mg/L (<8.01) H 05/17/19 04:45 Total Protein 7.7 g/dL (6.4-8.9) 05/14/19 03:06 Albumin 3.9 g/dL (3.2-5.2) 05/14/19 03:06 Globulin 3.8 g/dL (2-4) 05/14/19 03:06 Albumin/Globulin Ratio 1.0 (1-3) 05/14/19 03:06 Urine Color Nadia 05/14/19 02:31 Urine Appearance Turbid 05/14/19 02:31 Urine pH 5.0 (5-9) 05/14/19 02:31 Ur Specific [place] 1.015 (1.010-1.030) 05/14/19 02:31 Urine Protein 2+(100 mg/dl) (Negative) A 05/14/19 02:31 Urine Ketones Negative (Negative) 05/14/19 02:31 Urine Blood 2+ (Negative) A 05/14/19 02:31 Urine Nitrate Negative (Negative) 05/14/19 02:31 Urine Bilirubin Negative (Negative) 05/14/19 02:31 Urine Urobilinogen Negative (Negative) 05/14/19 02:31 Ur Leukocyte Esterase 3+ (Negative) A 05/14/19 02:31 Urine WBC (Auto) 3+(>20/hpf) (Absent) A 05/14/19 02:31 Urine RBC (Auto) 3+(>10/hpf) (Absent) A 05/14/19 02:31 Urine Bacteria Absent (Absent) 05/14/19 02:31 Urine Yeast Present (Absent) A 05/14/19 02:31 Urine Glucose 3+(>=500 mg/dl) (Negative) A 05/14/19 02:31 Carbamazepine 8.2 mcg/mL (4.0-12.0) 05/16/19 11:48 Microbiology 05/14/19 03:23 Aerobic Blood Culture - Final Blood Venous Not Reportable Anaerobic Blood Culture - Final Not Reportable Blood Culture - Final No Growth Day 5 05/14/19 03:06 Aerobic Blood Culture - Final Blood Venous Not Reportable Anaerobic Blood Culture - Final Not Reportable Blood Culture - Final No Growth Day 5 05/14/19 02:31 Urine Culture - Final Urine Pseudomonas Aeruginosa Leelee Albicans Assessment: 1. Encephalopathy. Present on admission, suspect multifactorial including UTI. 2. UTI in the setting of neurogenic bladder. Urine culture with pseudomonas and leelee. Afebrile for almost 48 hours. Mild leukocytosis on labs last drawn 2 days ago. 3. MS with neurogenic bladder and self catheterization at home. 4. History of recurrent UTIs. 5. Seizure disorder. Plan: Continue Zosyn and fluconazole, will plan to treat with IV ABX for 2 weeks. Day 11/10.
--- NOTE | 2019-05-19 16:35 | PN ---
Subjective Date of Service: 05/19/19 Interval History: More lethargic this am.not swallowing pills.improved through the day Objective Active Medications: Acetaminophen (Tylenol Tab*) 650 mg PO Q4H PRN PRN Reason: PAIN Last Admin: 05/18/19 02:07 Dose: 650 mg Albuterol/Ipratropium (Duoneb (Albuterol 2.5 Mg/Ipratropium 0.5 Mg)) 1 neb INH Q2H PRN PRN Reason: SOB/WHEEZING Atorvastatin Calcium (Lipitor*) 40 mg PO BEDTIME [facility] Last Admin: 05/18/19 20:58 Dose: 40 mg Baclofen (Lioresal Tab*) 20 mg PO QID [facility] Last Admin: 05/19/19 12:04 Dose: 20 mg Betamethasone/Clotrimazole (Lotrisone Cream*) 1 applic TOPICAL 2100 [facility] Last Admin: 05/19/19 02:40 Dose: 1 applic Carbamazepine (Tegretol Tab(*)) 200 mg PO BID [facility] Last Admin: 05/19/19 09:31 Dose: Not Given Clonidine HCl (Shqywmvt-Mvq-5 0.2 Mg Patch*) 0.2 mg TRANSDERM Q7D [facility] Last Admin: 05/19/19 10:41 Dose: 0.2 mg Dextrose (Dextrose 50% Vial 50 Ml*) 25 ml IV PUSH .FOR FS < 60 - SS PRN PRN Reason: FS < 60 Enoxaparin Sodium (Lovenox(*)) 40 mg SUBCUT Q24H [facility] Last Admin: 05/18/19 17:26 Dose: 40 mg Gentamicin Sulfate (Gentamicin 0.1% Ointment*) 1 applic TOPICAL 2100 [facility] Stop: 06/03/19 21:01 Last Admin: 05/19/19 02:40 Dose: 1 applic Glipizide (Glucotrol Xl*) 10 mg PO BID [facility] Last Admin: 05/19/19 09:31 Dose: Not Given Heparin Sodium (Porcine) (Heparin Flush Picc/Ml/Cvc(*)) 1 - 3 ml FLUSH 0600, 1800 [facility]; Protocol Last Admin: 05/19/19 07:42 Dose: Not Given Hydralazine HCl (Apresoline Iv*) 5 mg IV SLOW PU Q6H PRN PRN Reason: SYSTOLIC BP GREATER THAN: Last Admin: 05/19/19 09:58 Dose: 5 mg Piperacillin Sod/Tazobactam (Sod 3.375 gm/ Sodium Chloride) 100 mls @ 25 mls/ hr IVPB Q8H [facility] Last Admin: 05/19/19 12:39 Dose: 25 mls/hr Fluconazole/Sodium Chloride (Diflucan 200 Mg Ivpremix(*)) 200 mg in 100 mls @ 100 mls/hr IVPB Q24H [facility] Last Admin: 05/19/19 09:47 Dose: 100 mls/hr Insulin Human Lispro (Humalog*) 0 units SUBCUT ACHS [facility]; Protocol Last Admin: 05/19/19 12:03 Dose: 6 units Metoprolol Succinate (Toprol Xl Tab*) 100 mg PO DAILY WITH MEAL [facility] Last Admin: 05/19/19 09:31 Dose: Not Given Oxybutynin Chloride (Ditropan Tab*) 5 mg PO BID [facility] Last Admin: 05/19/19 08:25 Dose: 5 mg Pantoprazole Sodium (Protonix Iv*) 40 mg IV Q24H [facility] Last Admin: 05/19/19 09:50 Dose: 40 mg Pioglitazone HCl (Actos Tab*) 30 mg PO DAILY [facility] Last Admin: 05/19/19 09:31 Dose: Not Given Polyethylene Glycol/Electrolytes (Miralax*) 17 gm PO DAILY PRN PRN Reason: CONSTIPATION Last Admin: 05/18/19 04:03 Dose: 17 gm Vital Signs - 8 hr 05/19/19 12:10 Temperature 97.4 F Pulse Rate 88 Respiratory 20 Rate Blood Pressure 166/84 (mmHg) O2 Sat by Pulse 99 Oximetry Oxygen Devices in Use Now: None Eyes: No Scleral Icterus Ears/Nose/Mouth/Throat: NL Teeth, Lips, Gums Neck: NL Appearance and Movements; NL JVP Respiratory: Symmetrical Chest Expansion and Respiratory Effort Cardiovascular: NL Sounds; No Murmurs; No JVD Abdominal: NL Sounds; No Tenderness; No Distention Extremities: No Edema Neurological: - - more awake with time, answering questions Result Diagrams: 05/17/19 04:45 05/17/19 04:45 Additional Lab and Data: Lab Results 05/14/19 Range/Units 02:31 Urine Color Nadia Urine Appearance Turbid Urine pH 5.0 (5-9) Ur Specific [place] 1.015 (1.010-1.030) Urine Protein 2+(100 mg/dl) A (Negative) Urine Ketones Negative (Negative) Urine Blood 2+ A (Negative) Urine Nitrate Negative (Negative) Urine Bilirubin Negative (Negative) Urine Urobilinogen Negative (Negative) Ur Leukocyte Esterase 3+ A (Negative) Urine WBC (Auto) 3+(>20/hpf) A (Absent) Urine RBC (Auto) 3+(>10/hpf) A (Absent) Urine Bacteria Absent (Absent) Urine Yeast Present A (Absent) Urine Glucose 3+(>=500 mg/dl) A (Negative) Microbiology and Other Data: Microbiology 05/14/19 02:31 Urine Culture - Preliminary Urine Pseudomonas Aeruginosa 05/14/19 03:23 Aerobic Blood Culture - Final Blood Venous Not Reportable Anaerobic Blood Culture - Final Not Reportable Blood Culture - Preliminary No Growth Day 1 05/14/19 03:06 Aerobic Blood Culture - Final Blood Venous Not Reportable Anaerobic Blood Culture - Final Not Reportable Blood Culture - Preliminary No Growth Day 1 Assess/Plan/Problems-Billing 69 yo female with PMHx neurogenic bladder who self-caths, HTN, HLD, MS, DMT2, seizure disorder presents with hypotension altered mental status. - Patient Problems (1) Multiple sclerosis Current Visit: Yes Status: Acute Code(s): G35 - MULTIPLE SCLEROSIS SNOMED Code(s): 16293720 Comment: Progressive MS with decline Dr Dudley following Discussed case with pt's after reviewing scans (2) Sepsis Current Visit: Yes Status: Acute Comment: Pt was septic on admission secondary to pseudomonas and leelee UTI. HR better with resuming home metoprolol. Temp normal. (3) UTI (urinary tract infection) Current Visit: Yes Status: Acute Priority: High Comment: Continue zosyn and fluconazole. Maybe febrile yesterday as fluconazole just started. Duration of treatment per ID. (4) DM2 (diabetes mellitus, type 2) Current Visit: Yes Status: Chronic Priority: Medium Comment: Blood sugars remain elevated despite restarting glipizide today. Resume pioglitizone. (5) HTN (hypertension) Current Visit: Yes Status: Chronic Priority: Medium Code(s): I10 - ESSENTIAL (PRIMARY) HYPERTENSION SNOMED Code(s): 97067639 Comment: bp elevated was unable to take oral meds this am switched to clonidine patch and prn hydralazine diff with swallowing (6) DVT prophylaxis Current Visit: Yes Status: Acute Priority: Low Code(s): XVF9593 - SNOMED Code(s): 377444553 Comment: lovenox Status and Disposition: .
[2019-05-19] MEDS: Enoxaparin(*) 40 MG/0.4 ML SYR SUBCUT SCH (16:36)
[2019-05-19 17:13] LABS: Urine Appearance Turbid; Urine Bacteria 1+ (Absent); Urine Bilirubin Negative (Negative); Urine Blood 2+ (Negative); Urine Color Yellow; Urine Glucose 3+(>=500 mg/dL) (Negative); Urine Ketones Negative (Negative); Urine Nitrite Negative (Negative); Urine Protein 1+(30 mg/dL) (Negative); Urine Red Blood Cell 3+(>10/hpf) (Absent); Urine Specific Gravity 1.006 (1.010-1.030); Urine Squamous Epithelial Cell Present (Absent); Urine Urobilinogen Negative (Negative); Urine White Blood Cell 3+(>20/hpf) (Absent)
[2019-05-19] MEDS: Atorvastatin* 40 MG TAB PO SCH (21:25)
[2019-05-20] MEDS: hydrALAZINE IV* 20 MG/ML VIAL IV SLOW PU PRN (04:04)
[2019-05-20] MEDS: ZOSYN 3.375 GM Q8H per EXTENDED INFUSION IVPB SCH ×6 (04:53→19:38)
[2019-05-20 05:11] LABS: ABS Eosinophils 0.3 10^3/ul (0-0.6); ABS Lymphocytes 2.1 10^3/ul (1.0-4.8); ABS Monocytes 0.9 10^3/ul (0-0.8); ABS Neutrophils 6.2 10^3/ul (1.5-7.7); Eosinophil % 2.9 %; Hematocrit 33 % (35-47); Hemoglobin 11.2 g/dL (12.0-16.0); Lymphocyte % 21.9 %; Mean Corpuscular HGB Conc 34 g/dL (31-36); Mean Corpuscular Hemoglobin 30 pg (27-31); Mean Corpuscular Volume 88 fL (80-97); Platelet Count 279 10^3/uL (150-450); Red Blood Count 3.79 10^6 /uL (3.70-4.87); Red Cell Distribution Width 16 % (10-15); White Blood Count 9.5 10^3/uL (3.5-10.8)
[2019-05-20 05:26] LABS: BUN/Creatinine Ratio 9.2 (8-20); Calcium 9.2 mg/dL (8.6-10.3); EGFR African American 60.4 (>60); EGFR Non-African American 49.9 (>60)
[2019-05-20] MEDS: Pioglitazone TAB* 30 MG PO SCH (09:07)
[2019-05-20] MEDS: carBAMazepine TAB(*) 200 MG PO SCH ×2 (09:07→19:36)
[2019-05-20] MEDS: Oxybutynin TAB* 5 MG PO SCH ×2 (09:08→19:37)
[2019-05-20] MEDS: glipiZIDE TAB.XL* 5 MG PO SCH (09:08)
[2019-05-20] MEDS: Baclofen TAB* 20 MG PO SCH ×4 (09:08→19:36)
[2019-05-20] MEDS: Metoprolol Succinate XL TAB* 100 MG PO SCH (09:08)
[2019-05-20] MEDS: Insulin LISPRO* 1 UNITS UNIT SUBCUT SCH ×4 (09:13→20:39)
[2019-05-20] MEDS: Fluconazole 200 MG IVPREMIX(*) 200 MG/100 ML BAG IVPB SCH (11:04)
[2019-05-20] MEDS: Pantoprazole IV* 40 MG IV SCH (11:09)
--- NOTE | 2019-05-20 13:20 | PN ---
Subjective Date of Service: 05/20/19 Interval History: Lethargic this am.Delirium and has good and bad times when she is more awake and sleepy Objective Active Medications: Acetaminophen (Tylenol Tab*) 650 mg PO Q4H PRN PRN Reason: PAIN Last Admin: 05/18/19 02:07 Dose: 650 mg Albuterol/Ipratropium (Duoneb (Albuterol 2.5 Mg/Ipratropium 0.5 Mg)) 1 neb INH Q2H PRN PRN Reason: SOB/WHEEZING Atorvastatin Calcium (Lipitor*) 40 mg PO BEDTIME [facility] Last Admin: 05/19/19 21:25 Dose: 40 mg Baclofen (Lioresal Tab*) 20 mg PO QID [facility] Last Admin: 05/20/19 09:08 Dose: 20 mg Betamethasone/Clotrimazole (Lotrisone Cream*) 1 applic TOPICAL 2100 [facility] Last Admin: 05/19/19 21:34 Dose: 1 applic Carbamazepine (Tegretol Tab(*)) 200 mg PO BID [facility] Last Admin: 05/20/19 09:07 Dose: 200 mg Clonidine HCl (Wbacegsd-Owm-8 0.2 Mg Patch*) 0.2 mg TRANSDERM Q7D [facility] Last Admin: 05/19/19 10:41 Dose: 0.2 mg Dextrose (Dextrose 50% Vial 50 Ml*) 25 ml IV PUSH .FOR FS < 60 - SS PRN PRN Reason: FS < 60 Enoxaparin Sodium (Lovenox(*)) 40 mg SUBCUT Q24H [facility] Last Admin: 05/19/19 16:36 Dose: 40 mg Gentamicin Sulfate (Gentamicin 0.1% Ointment*) 1 applic TOPICAL 2100 [facility] Stop: 06/03/19 21:01 Last Admin: 05/19/19 21:34 Dose: 1 applic Glipizide (Glucotrol Xl*) 10 mg PO BID [facility] Last Admin: 05/20/19 09:08 Dose: 10 mg Heparin Sodium (Porcine) (Heparin Flush Picc/Ml/Cvc(*)) 1 - 3 ml FLUSH 0600, 1800 [facility]; Protocol Last Admin: 05/20/19 05:42 Dose: Not Given Hydralazine HCl (Apresoline Iv*) 5 mg IV SLOW PU Q6H PRN PRN Reason: SYSTOLIC BP GREATER THAN: Last Admin: 05/20/19 04:04 Dose: 5 mg Piperacillin Sod/Tazobactam (Sod 3.375 gm/ Sodium Chloride) 100 mls @ 25 mls/ hr IVPB Q8H [facility] Last Admin: 05/20/19 04:53 Dose: 25 mls/hr Fluconazole/Sodium Chloride (Diflucan 200 Mg Ivpremix(*)) 200 mg in 100 mls @ 100 mls/hr IVPB Q24H [facility] Last Admin: 05/20/19 11:04 Dose: 100 mls/hr Insulin Human Lispro (Humalog*) 0 units SUBCUT ACHS [facility]; Protocol Last Admin: 05/20/19 11:38 Dose: 6 units Metoprolol Succinate (Toprol Xl Tab*) 100 mg PO DAILY WITH MEAL [facility] Last Admin: 05/20/19 09:08 Dose: 100 mg Oxybutynin Chloride (Ditropan Tab*) 5 mg PO BID [facility] Last Admin: 05/20/19 09:08 Dose: 5 mg Pantoprazole Sodium (Protonix Iv*) 40 mg IV Q24H [facility] Last Admin: 05/20/19 11:09 Dose: 40 mg Pioglitazone HCl (Actos Tab*) 30 mg PO DAILY [facility] Last Admin: 05/20/19 09:07 Dose: 30 mg Polyethylene Glycol/Electrolytes (Miralax*) 17 gm PO DAILY PRN PRN Reason: CONSTIPATION Last Admin: 05/18/19 04:03 Dose: 17 gm Vital Signs - 8 hr 05/20/19 08:00 Respiratory 20 Rate Oxygen Devices in Use Now: None Eyes: No Scleral Icterus Ears/Nose/Mouth/Throat: NL Teeth, Lips, Gums Neck: NL Appearance and Movements; NL JVP Respiratory: Symmetrical Chest Expansion and Respiratory Effort, Clear to Auscultation Cardiovascular: NL Sounds; No Murmurs; No JVD Abdominal: NL Sounds; No Tenderness; No Distention Extremities: No Edema Neurological: - - lethargic today this am, similar yesterday and later was responsive and following commands Result Diagrams: 05/20/19 04:50 05/20/19 04:50 Additional Lab and Data: Lab Results 05/14/19 Range/Units 02:31 Urine Color Nadia Urine Appearance Turbid Urine pH 5.0 (5-9) Ur Specific [place] 1.015 (1.010-1.030) Urine Protein 2+(100 mg/dl) A (Negative) Urine Ketones Negative (Negative) Urine Blood 2+ A (Negative) Urine Nitrate Negative (Negative) Urine Bilirubin Negative (Negative) Urine Urobilinogen Negative (Negative) Ur Leukocyte Esterase 3+ A (Negative) Urine WBC (Auto) 3+(>20/hpf) A (Absent) Urine RBC (Auto) 3+(>10/hpf) A (Absent) Urine Bacteria Absent (Absent) Urine Yeast Present A (Absent) Urine Glucose 3+(>=500 mg/dl) A (Negative) Microbiology and Other Data: Microbiology 05/14/19 02:31 Urine Culture - Preliminary Urine Pseudomonas Aeruginosa 05/14/19 03:23 Aerobic Blood Culture - Final Blood Venous Not Reportable Anaerobic Blood Culture - Final Not Reportable Blood Culture - Preliminary No Growth Day 1 05/14/19 03:06 Aerobic Blood Culture - Final Blood Venous Not Reportable Anaerobic Blood Culture - Final Not Reportable Blood Culture - Preliminary No Growth Day 1 Assess/Plan/Problems-Billing 69 yo female with PMHx neurogenic bladder who self-caths, HTN, HLD, MS, DMT2, seizure disorder presents with hypotension altered mental status. - Patient Problems (1) Multiple sclerosis Current Visit: Yes Status: Acute Code(s): G35 - MULTIPLE SCLEROSIS SNOMED Code(s): 94014607 Comment: Progressive MS with decline Dr Dudley following Discussed case with pt's after reviewing scans (2) Sepsis Current Visit: Yes Status: Acute Comment: Pt was septic on admission secondary to pseudomonas and leelee UTI. HR better with resuming home metoprolol. Temp normal. (3) UTI (urinary tract infection) Current Visit: Yes Status: Acute Priority: High Comment: Continue zosyn and fluconazole. Pseudomonas and Yeast UTI Duration of treatment per ID Repeating urine culture yesterday ( pendin g) and blood culture Recent stent with Dr Eaton with plan for removal on 05/29/[address] Eaton aware that the pt is here in the hospital on Wednesday as well If no improvementy, consider repeating renal ultrasound or Ct abd/pelvis to eval for hydro/abscess Prior culture pseudomonas sensitive to Zosyn and will continue (4) DM2 (diabetes mellitus, type 2) Current Visit: Yes Status: Chronic Priority: Medium Comment: Will hold glipizide,poiglitazone to avoid precipitating hypoglycemia and AMS Continue ISS while in hospital (5) HTN (hypertension) Current Visit: Yes Status: Chronic Priority: Medium Code(s): I10 - ESSENTIAL (PRIMARY) HYPERTENSION SNOMED Code(s): 56206516 Comment: bp elevated was unable to take oral meds yesterday switched to clonidine patch and prn hydralazine diff with swallowing On metoprolol and amlodipine PO usually.Will continue. Reevaluate need for clonidine patch/ bp management as pt taking po now (6) DVT prophylaxis Current Visit: Yes Status: Acute Priority: Low Code(s): [id number] - SNOMED Code(s): 133736999 Comment: lovenox Status and Disposition: .
[2019-05-20] MEDS: Acetaminophen TAB* 325 MG PO PRN (14:02)
[2019-05-20] MEDS: Enoxaparin(*) 40 MG/0.4 ML SYR SUBCUT SCH (17:16)
[2019-05-20] MEDS: Atorvastatin* 40 MG TAB PO SCH (19:36)
[2019-05-20] MEDS: Clotrimazole/Betamethasone CREAM* 15 GM TOPICAL SCH (19:37)
[2019-05-20] MEDS: GENTAMICIN 0.1% TOPICAL SCH (19:38)
[2019-05-21] MEDS: ZOSYN 3.375 GM Q8H per EXTENDED INFUSION IVPB SCH ×6 (04:19→21:00)
[2019-05-21 06:56] LABS: ABS Eosinophils 0.3 10^3/ul (0-0.6); ABS Lymphocytes 2.3 10^3/ul (1.0-4.8); ABS Monocytes 0.7 10^3/ul (0-0.8); ABS Neutrophils 5.2 10^3/ul (1.5-7.7); Eosinophil % 3.6 %; Hematocrit 30 % (35-47); Hemoglobin 10.4 g/dL (12.0-16.0); Lymphocyte % 26.9 %; Mean Corpuscular HGB Conc 34 g/dL (31-36); Mean Corpuscular Hemoglobin 30 pg (27-31); Mean Corpuscular Volume 88 fL (80-97); Mean Platelet Volume 8.1 fL (7.4-10.4); Platelet Count 269 10^3/uL (150-450); Red Blood Count 3.46 10^6 /uL (3.70-4.87); Red Cell Distribution Width 16 % (10-15); White Blood Count 8.6 10^3/uL (3.5-10.8)
[2019-05-21 07:12] LABS: BUN/Creatinine Ratio 12.3 (8-20); Calcium 9.1 mg/dL (8.6-10.3); EGFR African American 57.4 (>60); EGFR Non-African American 47.4 (>60)
[2019-05-21] MEDS: Insulin LISPRO* 1 UNITS UNIT SUBCUT SCH ×4 (09:31→22:04)
[2019-05-21] MEDS: Metoprolol Succinate XL TAB* 100 MG PO SCH (09:39)
[2019-05-21] MEDS: Baclofen TAB* 20 MG PO SCH ×4 (09:39→20:59)
[2019-05-21] MEDS: Acetaminophen TAB* 325 MG PO PRN ×3 (09:40→21:33)
[2019-05-21] MEDS: Oxybutynin TAB* 5 MG PO SCH ×2 (09:40→21:00)
[2019-05-21] MEDS: carBAMazepine TAB(*) 200 MG PO SCH ×2 (09:40→20:59)
[2019-05-21] MEDS: Fluconazole 200 MG IVPREMIX(*) 200 MG/100 ML BAG IVPB SCH (09:47)
[2019-05-21] MEDS: Pantoprazole IV* 40 MG IV SCH (11:33)
[2019-05-21] MEDS: Enoxaparin(*) 40 MG/0.4 ML SYR SUBCUT SCH (17:11)
--- NOTE | 2019-05-21 18:11 | PN ---
Subjective Date of Service: 05/21/19 Interval History: Ms. Em is not able to wake to provide any subjective data today. She will briefly open her eyes about half-way when prompted. She did admit to being thirsty. When told by her to open her eyes, she opened her mouth. He reports she has been drowsy all day. No concerns from nursing. Family History: Unchanged from Admission Social History: Unchanged from Admission Past Medical History: Unchanged from Admission Objective Active Medications: Acetaminophen (Tylenol Tab*) 650 mg PO Q4H PRN PAIN Albuterol/Ipratropium (Duoneb (Albuterol 2.5 Mg/Ipratropium 0.5 Mg)) 1 neb INH Q2H PRN SOB/WHEEZING Atorvastatin Calcium (Lipitor*) 40 mg PO BEDTIME SIMÓN Baclofen (Lioresal Tab*) 20 mg PO QID SIMÓN Betamethasone/Clotrimazole (Lotrisone Cream*) 1 applic TOPICAL 2100 SIMÓN Carbamazepine (Tegretol Tab(*)) 200 mg PO BID SIMÓN Clonidine HCl (Qcazckzc-Cok-3 0.2 Mg Patch*) 0.2 mg TRANSDERM Q7D SIMÓN Dextrose (Dextrose 50% Vial 50 Ml*) 25 ml IV PUSH .FOR FS < 60 - SS PRN FS < 60 Enoxaparin Sodium (Lovenox(*)) 40 mg SUBCUT Q24H SIMÓN Gentamicin Sulfate (Gentamicin 0.1% Ointment*) 1 applic TOPICAL 2100 SIMÓN Heparin Sodium (Porcine) (Heparin Flush Picc/Ml/Cvc(*)) 1 - 3 ml FLUSH 0600, 1800 SIMÓN; Protocol Hydralazine HCl (Apresoline Iv*) 5 mg IV SLOW PU Q6H PRN SYSTOLIC BP GREATER THAN: Piperacillin Sod/Tazobactam (Sod 3.375 gm/ Sodium Chloride) 100 mls @ 25 mls/ hr IVPB Q8H SIMÓN Fluconazole/Sodium Chloride (Diflucan 200 Mg Ivpremix(*)) 200 mg in 100 mls @ 100 mls/hr IVPB Q24H [facility] Insulin Human Lispro (Humalog*) 0 units SUBCUT ACHS SIMÓN; Protocol Metoprolol Succinate (Toprol Xl Tab*) 100 mg PO DAILY WITH MEAL SIMÓN Oxybutynin Chloride (Ditropan Tab*) 5 mg PO BID SIMÓN Pantoprazole Sodium (Protonix Iv*) 40 mg IV Q24H SIMÓN Polyethylene Glycol/Electrolytes (Miralax*) 17 gm PO DAILY PRN CONSTIPATION Oxygen Devices in Use Now: None Appearance: Elderly female laying in bed in NAD Neck: NL Appearance and Movements; NL JVP, Trachea Midline Respiratory: Symmetrical Chest Expansion and Respiratory Effort, Clear to Auscultation Cardiovascular: NL Sounds; No Murmurs; No JVD, RRR Abdominal: NL Sounds; No Tenderness; No Distention Extremities: No Edema Neurological: - - Responds to verbal stimuli Lines/Tubes/Other Access: Clean, Dry and Intact Peripheral IV Result Diagrams: 05/21/19 06:30 05/21/19 06:30 Assess/Plan/Problems-Billing Assessment: Ms. Em is a 69 yo F with PMH of neurogenic bladder who selfcaths, HTN, HLD, MS , DM2, and seizure disorder; who presented with hypotension altered mental status, found to have UTI. - Patient Problems (1) UTI (urinary tract infection) Comment: - Recent stent with Dr Eaton with plan for removal on 05/29/19 - Urine culture growing Pseudomonas and yeast; repeat culture without growth - Appreciate ID consult; recommends total of 2 weeks of treatment - Continue Zosyn (day 814), fluconazole (day14) (2) Acute encephalopathy Code(s): G93.40 - ENCEPHALOPATHY, UNSPECIFIED Comment: - Multifactorial: sepsis, progressive MS - Appreciate Neuro consult; recommends avoiding benzos and antipsychotics - Neuro checks q4h (3) Sepsis Comment: - Resolved - Met criteria on admission secondary to pseudomonas and leelee UTI - Negative bloow cultures (4) Multiple sclerosis Code(s): G35 - MULTIPLE SCLEROSIS Comment: - Progressive MS with decline - Appreciate Neuro consult - Supportive care (5) DM2 (diabetes mellitus, type 2) Comment: - Blood glucose 200s - Hold glipizide and poiglitazone to avoid precipitating hypoglycemia and AMS - Continue Lispro SS (6) HTN (hypertension) Code(s): I10 - ESSENTIAL (PRIMARY) HYPERTENSION Comment: - Normotensive with some soft pressures - Continue metoprolol; d/c clonidine as she is now taking PO meds (7) Neurogenic bladder Code(s): N31.9 - NEUROMUSCULAR DYSFUNCTION OF BLADDER, UNSPECIFIED Comment: - Typically straight caths at home - Mcwilliams while in the hospital (8) Seizure disorder Code(s): G40.909 - EPILEPSY, UNSP, NOT INTRACTABLE, WITHOUT STATUS EPILEPTICUS Comment: - EEG unremarkable for seizure activity - Continue carbamazepine (9) Hyperlipidemia Code(s): E78.5 - HYPERLIPIDEMIA, UNSPECIFIED Comment: - Continue atorvastatin (10) DVT prophylaxis Comment: - Lovenox (11) Full code status Code(s): Z78.9 - OTHER SPECIFIED HEALTH STATUS Comment: Status and Disposition: Inpatient for IV antibiotics for UTI. Anticipate d/c home vs TIANNA when medically stable. Attending: Lizet Gaytan
[2019-05-21] MEDS: Atorvastatin* 40 MG TAB PO SCH (20:59)
[2019-05-21] MEDS: GENTAMICIN 0.1% TOPICAL SCH (22:06)
[2019-05-21] MEDS: Clotrimazole/Betamethasone CREAM* 15 GM TOPICAL SCH (22:07)
[2019-05-22] MEDS ORDERED: NS 0.9% 1000 ML** 1,000 ML IV ONE (00:14)
[2019-05-22] MEDS: Acetaminophen TAB* 325 MG PO PRN (02:40)
[2019-05-22] MEDS: ZOSYN 3.375 GM Q8H per EXTENDED INFUSION IVPB SCH ×6 (05:38→21:03)
[2019-05-22] MEDS: Pantoprazole IV* 40 MG IV SCH (09:31)
[2019-05-22] MEDS: Fluconazole 200 MG IVPREMIX(*) 200 MG/100 ML BAG IVPB SCH (09:31)
[2019-05-22] MEDS: Insulin LISPRO* 1 UNITS UNIT SUBCUT SCH ×4 (09:33→21:01)
[2019-05-22] MEDS: Baclofen TAB* 20 MG PO SCH ×4 (09:34→21:02)
[2019-05-22] MEDS: Metoprolol Succinate XL TAB* 100 MG PO SCH (09:34)
[2019-05-22] MEDS: carBAMazepine TAB(*) 200 MG PO SCH ×2 (09:34→21:02)
[2019-05-22] MEDS: Oxybutynin TAB* 5 MG PO SCH ×2 (09:34→21:02)
--- NOTE | 2019-05-22 10:27 | PN ---
Progress Note - Progress Note Date of Service: 05/22/19 SOAP: Subjective: CC: Encephalopathy in the setting of a UTI HPI: Ms. Em is a 69 yo female with PMH significant for MS, neurogenic bladder , DM2, HTN, and nephrolithiasis with left ureteral stent. Rena is more responsive today than she was last week. Denies fever, chills, nausea, vomiting , or diarrhea. Objective: Vital Signs - 8 hr 05/22/19 05/22/19 05/22/19 03:15 07:14 07:15 Temperature 97.3 F 98.9 F Pulse Rate 76 79 Respiratory 22 19 16 Rate Blood Pressure 138/65 144/83 (mmHg) O2 Sat by Pulse 95 98 Oximetry Physical Exam: General: NAD, sitting up in bed Neurological: Alert and Oriented to person and place HEENT: Moist MM, no thrush Cardiovascular: Heart rate regular Respiratory: Lung sounds clear Abdominal: Bowel sounds present; ABD soft, non tender and non distended Skin: No rash Laboratory Last Values WBC 8.6 10^3/uL (3.5-10.8) 05/21/19 06:30 RBC 3.46 10^6 /uL (3.70-4.87) L 05/21/19 06:30 Hgb 10.4 g/dL (12.0-16.0) L 05/21/19 06:30 Hct 30 % (35-47) L 05/21/19 06:30 MCV 88 fL (80-97) 05/21/19 06:30 MCH 30 pg (27-31) 05/21/19 06:30 MCHC 34 g/dL (31-36) 05/21/19 06:30 RDW 16 % (10-15) H 05/21/19 06:30 Plt Count 269 10^3/uL (150-450) 05/21/19 06:30 MPV 8.1 fL (7.4-10.4) 05/21/19 06:30 Neut % (Auto) 61.0 % 05/21/19 06:30 Lymph % (Auto) 26.9 % 05/21/19 06:30 [place] % (Auto) 8.0 % 05/21/19 06:30 Eos % (Auto) 3.6 % 05/21/19 06:30 Baso % (Auto) 0.5 % 05/21/19 06:30 Absolute Neuts (auto) 5.2 10^3/ul (1.5-7.7) 05/21/19 06:30 Absolute Lymphs (auto) 2.3 10^3/ul (1.0-4.8) 05/21/19 06:30 Absolute Monos (auto) 0.7 10^3/ul (0-0.8) 05/21/19 06:30 Absolute Eos (auto) 0.3 10^3/ul (0-0.6) 05/21/19 06:30 Absolute Basos (auto) 0.0 10^3/ul (0-0.2) 05/21/19 06:30 Absolute Nucleated RBC 0.0 10^3/ul 05/21/19 06:30 Nucleated RBC % 0.0 05/21/19 06:30 Sodium 137 mmol/L (135-145) 05/21/19 06:30 Potassium 4.0 mmol/L (3.5-5.0) 05/21/19 06:30 Chloride 105 mmol/L (101-111) 05/21/19 06:30 Carbon Dioxide 25 mmol/L (22-32) 05/21/19 06:30 Anion Gap 7 mmol/L (2-11) 05/21/19 06:30 BUN 14 mg/dL (6-24) 05/21/19 06:30 Creatinine 1.14 mg/dL (0.51-0.95) H 05/21/19 06:30 Est GFR ( Amer) 57.4 (>60) 05/21/19 06:30 Est GFR (Non-Af Amer) 47.4 (>60) 05/21/19 06:30 BUN/Creatinine Ratio 12.3 (8-20) 05/21/19 06:30 Glucose 165 mg/dL (70-100) H 05/21/19 06:30 POC Glucose (mg/dL) 164 mg/dL (70-100) H 05/22/19 07:34 Lactic Acid 0.9 mmol/L (0.5-2.0) 05/16/19 11:48 Calcium 9.1 mg/dL (8.6-10.3) 05/21/19 06:30 Phosphorus 2.2 mg/dL (2.5-5.0) L 05/15/19 06:33 Magnesium 2.1 mg/dL (1.9-2.7) 05/17/19 04:45 Total Bilirubin 0.30 mg/dL (0.2-1.0) 05/14/19 03:06 AST 17 U/L (13-39) 05/14/19 03:06 ALT 12 U/L (7-52) 05/14/19 03:06 Alkaline Phosphatase 73 U/L (34-104) 05/14/19 03:06 Ammonia 30 mcmol/L (16-53) 05/16/19 11:17 C-Reactive Protein 184.80 mg/L (<8.01) H 05/17/19 04:45 Total Protein 7.7 g/dL (6.4-8.9) 05/14/19 03:06 Albumin 3.9 g/dL (3.2-5.2) 05/14/19 03:06 Globulin 3.8 g/dL (2-4) 05/14/19 03:06 Albumin/Globulin Ratio 1.0 (1-3) 05/14/19 03:06 Vitamin B12 629 pg/mL (180-914) 05/20/19 15:50 Urine Color Yellow 05/19/19 17:00 Urine Appearance Turbid 05/19/19 17:00 Urine pH 6.0 (5-9) 05/19/19 17:00 Ur Specific [place] 1.006 (1.010-1.030) L 05/19/19 17:00 Urine Protein 1+(30 mg/dl) (Negative) A 05/19/19 17:00 Urine Ketones Negative (Negative) 05/19/19 17:00 Urine Blood 2+ (Negative) A 05/19/19 17:00 Urine Nitrate Negative (Negative) 05/19/19 17:00 Urine Bilirubin Negative (Negative) 05/19/19 17:00 Urine Urobilinogen Negative (Negative) 05/19/19 17:00 Ur Leukocyte Esterase 3+ (Negative) A 05/19/19 17:00 Urine WBC (Auto) 3+(>20/hpf) (Absent) A 05/19/19 17:00 Urine RBC (Auto) 3+(>10/hpf) (Absent) A 05/19/19 17:00 Ur Squamous Epith Cells Present (Absent) A 05/19/19 17:00 Urine Bacteria 1+ (Absent) A 05/19/19 17:00 Urine Yeast Present (Absent) A 05/19/19 17:00 Urine Glucose 3+(>=500 mg/dl) (Negative) A 05/19/19 17:00 Carbamazepine 5.1 mcg/mL (4.0-12.0) 05/21/19 11:30 Microbiology 05/19/19 17:50 Aerobic Blood Culture - Preliminary Blood Venous No Growth Day 2 Anaerobic Blood Culture - Preliminary No Growth Day 2 05/19/19 17:00 Urine Culture - Final Urine No Growth (<1,000 CFU/mL) 05/14/19 03:23 Aerobic Blood Culture - Final Blood Venous Not Reportable Anaerobic Blood Culture - Final Not Reportable Blood Culture - Final No Growth Day 5 05/14/19 03:06 Aerobic Blood Culture - Final Blood Venous Not Reportable Anaerobic Blood Culture - Final Not Reportable Blood Culture - Final No Growth Day 5 05/14/19 02:31 Urine Culture - Final Urine Pseudomonas Aeruginosa Kim Albicans Assessment: 1. Encephalopathy. Present on admission, improving. Suspect multifactorial including UTI. 2. UTI in the setting of neurogenic bladder. Urine culture with pseudomonas and kim. Afebrile since admission. Leukocytosis has resolved. 3. MS with neurogenic bladder and self catheterization at home. 4. History of recurrent UTIs. 5. Seizure disorder. Plan: Continue Zosyn and fluconazole, will plan to treat with IV ABX for 2 weeks. Day 6/14. Recommend discussing with urology about possible stent exchange while here and on IV ABX.
--- NOTE | 2019-05-22 15:25 | PN ---
Subjective Date of Service: 05/22/19 Interval History: Ms. Em is not verbal today. When asked how she is feeling, she shakes her head. When asked about pain, she nods her head, but she was currently having her hair combed by an aide. When asked if the pain was from her hair being combed, she nods. She is unwilling to answer any further questions. Aide reports that she had a small amount at breakfast. No concerns from nursing. Family History: Unchanged from Admission Social History: Unchanged from Admission Past Medical History: Unchanged from Admission Objective Active Medications: Acetaminophen (Tylenol Tab*) 650 mg PO Q4H PRN PAIN Albuterol/Ipratropium (Duoneb (Albuterol 2.5 Mg/Ipratropium 0.5 Mg)) 1 neb INH Q2H PRN SOB/WHEEZING Atorvastatin Calcium (Lipitor*) 40 mg PO BEDTIME SIMÓN Baclofen (Lioresal Tab*) 20 mg PO QID SIMÓN Betamethasone/Clotrimazole (Lotrisone Cream*) 1 applic TOPICAL 2100 SIMÓN Carbamazepine (Tegretol Tab(*)) 200 mg PO BID SIMÓN Dextrose (Dextrose 50% Vial 50 Ml*) 25 ml IV PUSH .FOR FS < 60 - SS PRN FS < 60 Enoxaparin Sodium (Lovenox(*)) 40 mg SUBCUT Q24H [facility]N Gentamicin Sulfate (Gentamicin 0.1% Ointment*) 1 applic TOPICAL 2100 SIMÓN Heparin Sodium (Porcine) (Heparin Flush Picc/Ml/Cvc(*)) 1 - 3 ml FLUSH 0600, 1800 SIMÓN; Protocol Hydralazine HCl (Apresoline Iv*) 5 mg IV SLOW PU Q6H PRN SYSTOLIC BP GREATER THAN: Piperacillin Sod/Tazobactam (Sod 3.375 gm/ Sodium Chloride) 100 mls @ 25 mls/ hr IVPB Q8H SIMÓN Fluconazole/Sodium Chloride (Diflucan 200 Mg Ivpremix(*)) 200 mg in 100 mls @ 100 mls/hr IVPB Q24H [facility] Insulin Human Lispro (Humalog*) 0 units SUBCUT ACHS SIMÓN; Protocol Metoprolol Succinate (Toprol Xl Tab*) 100 mg PO DAILY WITH MEAL SIMÓN Oxybutynin Chloride (Ditropan Tab*) 5 mg PO BID SIMÓN Pantoprazole Sodium (Protonix Iv*) 40 mg IV Q24H SIMÓN Polyethylene Glycol/Electrolytes (Miralax*) 17 gm PO DAILY PRN CONSTIPATION Vital Signs - 8 hr 05/22/19 11:15 Temperature 97.5 F Pulse Rate 56 Respiratory 16 Rate Blood Pressure 97/50 (mmHg) O2 Sat by Pulse 97 Oximetry Oxygen Devices in Use Now: None Appearance: Elderly female laying in bed in NAD Ears/Nose/Mouth/Throat: Mucous Membranes Moist Neck: NL Appearance and Movements; NL JVP, Trachea Midline Respiratory: Symmetrical Chest Expansion and Respiratory Effort, Clear to Auscultation Cardiovascular: NL Sounds; No Murmurs; No JVD, RRR Abdominal: NL Sounds; No Tenderness; No Distention Extremities: No Edema Neurological: - - Nonverbal, responds by noding or shaking head only Lines/Tubes/Other Access: Clean, Dry and Intact Mcwilliams, Clean, Dry and Intact Peripheral IV Nutrition: Taking PO's Result Diagrams: 05/21/19 06:30 05/21/19 06:30 Assess/Plan/Problems-Billing Assessment: Ms. Em is a 69 yo F with PMH of neurogenic bladder who selfcaths, HTN, HLD, MS , DM2, and seizure disorder; who presented with hypotension altered mental status, found to have UTI. - Patient Problems (1) UTI (urinary tract infection) Comment: - Recent stent with Dr Eaton with plan for removal on 05/29/19 - Urine culture growing Pseudomonas and yeast; repeat culture without growth - Appreciate ID consult; recommends total of 2 weeks of treatment - Continue Zosyn (day 914), fluconazole (day 614) (2) Acute encephalopathy Code(s): G93.40 - ENCEPHALOPATHY, UNSPECIFIED Comment: - Multifactorial: sepsis, progressive MS - Appreciate Neuro consult; recommends avoiding benzos and antipsychotics - Neuro checks q4h (3) Sepsis Comment: - Resolved - Met criteria on admission secondary to pseudomonas and leelee UTI - Negative bloow cultures (4) Multiple sclerosis Code(s): G35 - MULTIPLE SCLEROSIS Comment: - Progressive MS with decline - Appreciate Neuro consult - Supportive care (5) DM2 (diabetes mellitus, type 2) Comment: - Blood glucose 100-200s - Hold glipizide and poiglitazone to avoid precipitating hypoglycemia and AMS - Continue Lispro SS (6) HTN (hypertension) Code(s): I10 - ESSENTIAL (PRIMARY) HYPERTENSION Comment: - Normotensive with some soft pressures - Continue metoprolol (7) Neurogenic bladder Code(s): N31.9 - NEUROMUSCULAR DYSFUNCTION OF BLADDER, UNSPECIFIED Comment: - Typically straight caths at home - Mcwilliams while in the hospital; question if it would be better for her to go home with a Mcwilliams rather than straight cathing d/t recurrent infections (8) Seizure disorder Code(s): G40.909 - EPILEPSY, UNSP, NOT INTRACTABLE, WITHOUT STATUS EPILEPTICUS Comment: - EEG unremarkable for seizure activity - Continue carbamazepine (9) Hyperlipidemia Code(s): E78.5 - HYPERLIPIDEMIA, UNSPECIFIED Comment: - Continue atorvastatin (10) DVT prophylaxis Comment: - Lovenox (11) Full code status Code(s): Z78.9 - OTHER SPECIFIED HEALTH STATUS Comment: Status and Disposition: Inpatient for IV antibiotics for UTI. Anticipate d/c home vs [facility] when medically stable. Attending: Beau Howard
[2019-05-22] MEDS: Enoxaparin(*) 40 MG/0.4 ML SYR SUBCUT SCH (16:55)
[2019-05-22] MEDS: Atorvastatin* 40 MG TAB PO SCH (21:02)
[2019-05-22] MEDS: Clotrimazole/Betamethasone CREAM* 15 GM TOPICAL SCH (21:26)
[2019-05-22] MEDS: GENTAMICIN 0.1% TOPICAL SCH (21:26)
[2019-05-23] MEDS: ZOSYN 3.375 GM Q8H per EXTENDED INFUSION IVPB SCH ×6 (05:17→22:23)
[2019-05-23] MEDS: Baclofen TAB* 20 MG PO SCH ×4 (09:25→22:18)
[2019-05-23] MEDS: Pantoprazole IV* 40 MG IV SCH ×2 (09:25→09:28)
[2019-05-23] MEDS: Oxybutynin TAB* 5 MG PO SCH ×2 (09:26→22:20)
[2019-05-23] MEDS: Insulin LISPRO* 1 UNITS UNIT SUBCUT SCH ×4 (09:26→22:04)
[2019-05-23] MEDS: Metoprolol Succinate XL TAB* 100 MG PO SCH (09:26)
[2019-05-23] MEDS: carBAMazepine TAB(*) 200 MG PO SCH ×2 (09:26→22:19)
[2019-05-23] MEDS: Fluconazole 200 MG IVPREMIX(*) 200 MG/100 ML BAG IVPB SCH (09:36)
--- NOTE | 2019-05-23 10:23 | PN ---
Subjective Date of Service: 05/23/19 Interval History: Ms. Em was initially nonverbal on exam, only nodding or shaking her head. When asked if she was tired, she indicated no. When asked if there was anything bothering her or if she was in pain, she indicated no. is at the bedside. Ultimately, she was able to speak a few words. She was able to say her 's name and could identify me as "doctor." Not able to elicit anymore verbal communication. Poor PO intake. No concerns from nursing. Family History: Unchanged from Admission Social History: Unchanged from Admission Past Medical History: Unchanged from Admission Objective Active Medications: Acetaminophen (Tylenol Tab*) 650 mg PO Q4H PRN PAIN Albuterol/Ipratropium (Duoneb (Albuterol 2.5 Mg/Ipratropium 0.5 Mg)) 1 neb INH Q2H PRN SOB/WHEEZING Atorvastatin Calcium (Lipitor*) 40 mg PO BEDTIME SIMÓN Baclofen (Lioresal Tab*) 20 mg PO QID SIMÓN Betamethasone/Clotrimazole (Lotrisone Cream*) 1 applic TOPICAL 2100 SIMÓN Carbamazepine (Tegretol Tab(*)) 200 mg PO BID SIMÓN Dextrose (Dextrose 50% Vial 50 Ml*) 25 ml IV PUSH .FOR FS < 60 - SS PRN FS < 60 Enoxaparin Sodium (Lovenox(*)) 40 mg SUBCUT Q24H [facility] Gentamicin Sulfate (Gentamicin 0.1% Ointment*) 1 applic TOPICAL 2100 SIMÓN Heparin Sodium (Porcine) (Heparin Flush Picc/Ml/Cvc(*)) 1 - 3 ml FLUSH 0600, 1800 SIMÓN; Protocol Hydralazine HCl (Apresoline Iv*) 5 mg IV SLOW PU Q6H PRN SYSTOLIC BP GREATER THAN: Piperacillin Sod/Tazobactam (Sod 3.375 gm/ Sodium Chloride) 100 mls @ 25 mls/ hr IVPB Q8H [facility]N Fluconazole/Sodium Chloride (Diflucan 200 Mg Ivpremix(*)) 200 mg in 100 mls @ 100 mls/hr IVPB Q24H [facility] Insulin Human Lispro (Humalog*) 0 units SUBCUT ACHS SIMÓN; Protocol Metoprolol Succinate (Toprol Xl Tab*) 100 mg PO DAILY WITH MEAL SIMÓN Oxybutynin Chloride (Ditropan Tab*) 5 mg PO BID SIMÓN Pantoprazole Sodium (Protonix Iv*) 40 mg IV Q24H SIM[facility]N Polyethylene Glycol/Electrolytes (Miralax*) 17 gm PO DAILY PRN CONSTIPATION Vital Signs - 8 hr 05/23/19 05/23/19 05/23/19 03:53 07:15 09:33 Temperature 97.7 F 98.0 F Pulse Rate 88 59 Respiratory 20 20 Rate Blood Pressure 149/78 106/41 140/78 (mmHg) O2 Sat by Pulse 99 100 Oximetry Oxygen Devices in Use Now: None Appearance: Elderly female laying in bed in NAD Ears/Nose/Mouth/Throat: Mucous Membranes Moist Neck: NL Appearance and Movements; NL JVP, Trachea Midline Respiratory: Symmetrical Chest Expansion and Respiratory Effort, Clear to Auscultation Cardiovascular: NL Sounds; No Murmurs; No JVD, RRR Abdominal: NL Sounds; No Tenderness; No Distention Extremities: No Edema Neurological: - - Drowsy, responds to voice, very minimal verbal communication Lines/Tubes/Other Access: Clean, Dry and Intact Mcwilliams, Clean, Dry and Intact Peripheral IV Nutrition: Taking PO's Result Diagrams: 05/21/19 06:30 05/21/19 06:30 Assess/Plan/Problems-Billing Assessment: Ms. Em is a 69 yo F with PMH of neurogenic bladder who selfcaths, HTN, HLD, MS , DM2, and seizure disorder; who presented with hypotension altered mental status, found to have UTI. - Patient Problems (1) UTI (urinary tract infection) Comment: - Recent stent with Dr Eaton with plan for removal on 05/29/19, but unclear if he would want to pursue this during this hospitalization - Urine culture growing Pseudomonas and yeast; repeat culture without growth - Appreciate ID consult; recommends total of 2 weeks of treatment - Continue Zosyn (day 14), fluconazole (day 714) (2) Acute encephalopathy Code(s): G93.40 - ENCEPHALOPATHY, UNSPECIFIED Comment: - Mental status waxing and waning - Multifactorial: sepsis, progressive MS - Appreciate Neuro consult; recommends avoiding benzos and antipsychotics - Neuro checks q4h (3) Sepsis Comment: - Resolved - Met criteria on admission secondary to pseudomonas and leelee UTI - Negative bloow cultures (4) Multiple sclerosis Code(s): G35 - MULTIPLE SCLEROSIS Comment: - Progressive MS with decline - Appreciate Neuro consult - Supportive care (5) DM2 (diabetes mellitus, type 2) Comment: - Blood glucose 100-200s - Hold glipizide and poiglitazone to avoid precipitating hypoglycemia and AMS - Continue Lispro SS (6) HTN (hypertension) Code(s): I10 - ESSENTIAL (PRIMARY) HYPERTENSION Comment: - Normotensive with some soft pressures - Continue metoprolol (7) Neurogenic bladder Code(s): N31.9 - NEUROMUSCULAR DYSFUNCTION OF BLADDER, UNSPECIFIED Comment: - Typically straight caths at home - Mcwilliams while in the hospital; question if it would be better for her to go home with a Mcwilliams rather than straight cathing d/t recurrent infections (8) Seizure disorder Code(s): G40.909 - EPILEPSY, UNSP, NOT INTRACTABLE, WITHOUT STATUS EPILEPTICUS Comment: - EEG unremarkable for seizure activity - Continue carbamazepine (9) Hyperlipidemia Code(s): E78.5 - HYPERLIPIDEMIA, UNSPECIFIED Comment: - Continue atorvastatin (10) DVT prophylaxis Comment: - Lovenox (11) Full code status Code(s): Z78.9 - OTHER SPECIFIED HEALTH STATUS Comment: Status and Disposition: Inpatient. Anticipate d/c home vs [facility] when medically stable and cleared by ID. Attending: Shazia Lopes
--- NOTE | 2019-05-23 16:19 | PN ---
Subjective Date of Service: 05/23/19 Interval History: Ms. Em is a 68 yo female with PMH significant for DM2, breast CA, MS with neurogenic bladder, recurrent UTI, and stage 2 pressure injury to her buttocks; who presented to the emergency room for altered mental status. She was found to have a UTI. She presented to the hospital with a stage 2 pressure injury to her bilateral buttocks. Wound has been present for many months, unclear how long as Rena is unable to give details. Using a combination of gentamycin ointment and clotrimazole cream , followed by calcium alginate, and dry dressing and hypafix tape to her pressure injury at home. Patient seen and examined at bedside. Family History: Unchanged from Admission Social History: Unchanged from Admission Past Medical History: Unchanged from Admission Objective Active Medications: Acetaminophen (Tylenol Tab*) 650 mg PO Q4H PRN Reason: PAIN Albuterol/Ipratropium (Duoneb (Albuterol 2.5 Mg/Ipratropium 0.5 Mg)) 1 neb INH Q2H PRN Reason: SOB/WHEEZING Atorvastatin Calcium (Lipitor*) 40 mg PO BEDTIME [facility] Baclofen (Lioresal Tab*) 20 mg PO QID [facility] Betamethasone/Clotrimazole (Lotrisone Cream*) 1 applic TOPICAL [address] [facility] Carbamazepine (Tegretol Tab(*)) 200 mg PO BID [facility] Dextrose (Dextrose 50% Vial 50 Ml*) 25 ml IV PUSH .FOR FS < 60 - SS PRN Reason : FS < 60 Enoxaparin Sodium (Lovenox(*)) 40 mg SUBCUT Q24H [facility] Gentamicin Sulfate (Gentamicin 0.1% Ointment*) 1 applic TOPICAL [address] [facility] Stop: 06/03/19 21:01 Heparin Sodium (Porcine) (Heparin Flush Picc/Ml/Cvc(*)) 1 - 3 ml FLUSH 0600, 1800 [facility]; Protocol Hydralazine HCl (Apresoline Iv*) 5 mg IV SLOW PU Q6H PRN Reason: SYSTOLIC BP GREATER THAN: Piperacillin Sod/Tazobactam (Sod 3.375 gm/ Sodium Chloride) 100 mls @ 25 mls/ hr IVPB Q8H [facility] Fluconazole/Sodium Chloride (Diflucan 200 Mg Ivpremix(*)) 200 mg in 100 mls @ 100 mls/hr IVPB Q24H [facility] Insulin Human Lispro (Humalog*) 0 units SUBCUT ACHS [facility]; Protocol Metoprolol Succinate (Toprol Xl Tab*) 100 mg PO DAILY WITH MEAL [facility] Oxybutynin Chloride (Ditropan Tab*) 5 mg PO BID [facility] Pantoprazole Sodium (Protonix Iv*) 40 mg IV Q24H [facility] Polyethylene Glycol/Electrolytes (Miralax*) 17 gm PO DAILY PRN Reason: CONSTIPATION Vital Signs - 8 hr 05/23/19 05/23/19 09:33 11:15 Temperature 97.8 F Pulse Rate 76 Respiratory 20 Rate Blood Pressure 140/78 145/75 (mmHg) O2 Sat by Pulse 97 Oximetry Oxygen Devices in Use Now: None Appearance: NAD, laying in bed Ears/Nose/Mouth/Throat: Mucous Membranes Moist Respiratory: Symmetrical Chest Expansion and Respiratory Effort Skin: - - See note below Neurological: - - Alert and Oriented to person and place Result Diagrams: 05/29/19 06:00 05/29/19 06:00 Additional Lab and Data: Above labs were pulled into the note when edited prior to signing, please see labs from day of consultation below. Laboratory Tests 05/14/19 05/17/19 05/21/19 03:06 04:45 06:30 WBC 8.6 Hgb 10.4 L Hct 30 L Plt Count 269 Sodium Potassium Chloride Carbon Dioxide BUN Creatinine Glucose C-Reactive Protein 184.80 H Total Protein 7.7 Albumin 3.9 05/21/19 06:30 WBC Hgb Hct Plt Count Sodium 137 Potassium 4.0 Chloride 105 Carbon Dioxide 25 BUN 14 Creatinine 1.14 H Glucose 165 H C-Reactive Protein Total Protein Albumin Skin Deviation Note - Skin Deviation Findings Buttocks - Left buttock with open area, measures 2.5 cm x 1.2 cm x 0.1 cm. There is macerated/scar tissue surrounding the open area, measures 5 cm x 7 cm. The wound base is red granulation tissue. The surrounding skin is intact with some scar tissue and slight erythema. There is no drainage. Right buttock with open area, measures 0.2 cm x 0.2 cm x 0.1 cm. There is macerated/scar tissue surrounding the open area. The wound base is red granulation tissue. The surrounding skin is intact, slight erythema. There is no drainage. Wound Problem/Plan Assessment: Ms. Em is a 68 yo female with PMH significant for DM2, breast CA, MS with neurogenic bladder, recurrent UTI, and stage 2 pressure injury to her buttocks; who presented to the emergency room for altered mental status. She presented to the hospital with a stage 2 pressure injury to her bilateral buttocks. 1. Pressure injury, stage 2 to bilateral buttocks/upper sacrum. Prealbumin in 2018 - 35. Recommend applying Gentamycin ointment mixed with clotrimazole cream to the open wounds, followed by calcium alginate and an ABD pad folded in half. Use Hypafix tape only on the skin, do not tape all the way around the dressing. Change dressing every other day or as needed for soiling. Incontinence care as needed. Consider not using blue brief to allow air flow to the area. Frequent turning and repositioning. Use lifting devices to move in bed. Refer back to the wound clinic at discharge, she will likely need to have sharp debridement of the wound. 2. MS with neurogenic bladder and recurrent UTIs. 3. Diabetes Mellitus, type 2. Maintain good glycemic control to help with wound healing. 4. Diet. Consistent Carbohydrate diet. 5. Code Status. Full Code Status. 6. Disposition. Inpatient, disposition per primary medicine team. Is Patient a Wound Clinic Patient: Yes - Dr. Dunne Current Treatment: Combination of gentamycin ointment and clotrimazole cream, followed by calcium alginate, and dry dressing and hypafix tape. Counseling and/or Coordination of Care Minutes: 25 Points of Discussion: TIME SPENT: Time for this wound consultation was 25 minutes and 15 minutes was spent with the patient and discussing past medical history; removing the old dressing; assessing, measuring, and photographing the wounds; and reapplying a dressing. Attending: Tamar Ramsey
[2019-05-23] MEDS: Enoxaparin(*) 40 MG/0.4 ML SYR SUBCUT SCH (17:01)
[2019-05-23] MEDS: Atorvastatin* 40 MG TAB PO SCH (22:17)
[2019-05-24] MEDS: Clotrimazole/Betamethasone CREAM* 15 GM TOPICAL SCH ×2 (00:16→21:12)
[2019-05-24] MEDS: GENTAMICIN 0.1% TOPICAL SCH ×2 (00:17→21:12)
[2019-05-24] MEDS: ZOSYN 3.375 GM Q8H per EXTENDED INFUSION IVPB SCH ×6 (04:46→21:05)
[2019-05-24 05:16] LABS: ABS Eosinophils 0.2 10^3/ul (0-0.6); ABS Lymphocytes 2.6 10^3/ul (1.0-4.8); ABS Monocytes 0.6 10^3/ul (0-0.8); ABS Neutrophils 4.4 10^3/ul (1.5-7.7); Eosinophil % 2.6 %; Hematocrit 28 % (35-47); Hemoglobin 9.7 g/dL (12.0-16.0); Lymphocyte % 32.8 %; Mean Corpuscular HGB Conc 34 g/dL (31-36); Mean Corpuscular Hemoglobin 31 pg (27-31); Mean Corpuscular Volume 89 fL (80-97); Mean Platelet Volume 7.8 fL (7.4-10.4); Platelet Count 279 10^3/uL (150-450); Red Blood Count 3.18 10^6 /uL (3.70-4.87); Red Cell Distribution Width 16 % (10-15); White Blood Count 7.9 10^3/uL (3.5-10.8)
[2019-05-24 05:36] LABS: BUN/Creatinine Ratio 20.2 (8-20); C Reactive Protein 7.84 mg/L (<8.01); Calcium 8.9 mg/dL (8.6-10.3); EGFR African American 76.3 (>60); EGFR Non-African American 63.1 (>60); Potassium 4.2 mmol/L (3.5-5.0)
--- NOTE | 2019-05-24 09:54 | PN ---
Progress Note - Progress Note Date of Service: 05/24/19 SOAP: Subjective: CC: Encephalopathy in the setting of a UTI HPI: Ms. Em is a 69 yo female with PMH significant for MS, neurogenic bladder , DM2, HTN, and nephrolithiasis with left ureteral stent. Rena continues to be more responsive each day, but is often very tired as the day progresses. Denies fever, chills, nausea, vomiting, or diarrhea. Reports some ABD discomfort, felt to be secondary to constipation. She continues to have a poor appetite, but is eating. Objective: Vital Signs - 8 hr 05/24/19 05/24/19 05/24/19 03:15 07:15 08:00 Temperature 98.4 F 98.2 F Pulse Rate 71 71 Respiratory 18 14 16 Rate Blood Pressure 154/76 139/70 (mmHg) O2 Sat by Pulse 98 92 Oximetry Physical Exam: General: NAD, sitting up in chair Neurological: Alert and Oriented to person and place HEENT: Moist MM, no thrush Cardiovascular: Heart rate regular Respiratory: Lung sounds clear Abdominal: Bowel sounds present; ABD soft, non tender and large Skin: No rash. Stage 2 pressure injury to left buttock with red granulation tissue in the wound base, and white macerated skin surrounding. Erythema around the wound is improved from yesterday. Laboratory Results - last 24 hr 05/24/19 05/24/19 05/24/19 04:55 04:55 07:09 WBC 7.9 RBC 3.18 L Hgb 9.7 L Hct 28 L MCV 89 MCH 31 MCHC 34 RDW 16 H Plt Count 279 MPV 7.8 Neut % (Auto) 56.0 Lymph % (Auto) 32.8 [place] % (Auto) 8.0 Eos % (Auto) 2.6 Baso % (Auto) 0.6 Absolute Neuts (auto) 4.4 Absolute Lymphs (auto) 2.6 Absolute Monos (auto) 0.6 Absolute Eos (auto) 0.2 Absolute Basos (auto) 0.0 Absolute Nucleated RBC 0.0 Nucleated RBC % 0.0 Sodium 137 Potassium 4.2 Chloride 103 Carbon Dioxide 27 Anion Gap 7 BUN 18 Creatinine 0.89 Est GFR ( Amer) 76.3 Est GFR (Non-Af Amer) 63.1 BUN/Creatinine Ratio 20.2 H Glucose 164 H POC Glucose (mg/dL) 169 H Calcium 8.9 C-Reactive Protein 7.84 Microbiology 05/19/19 17:50 Aerobic Blood Culture - Preliminary Blood Venous No Growth Day 4 Anaerobic Blood Culture - Preliminary No Growth Day 4 05/19/19 17:00 Urine Culture - Final Urine No Growth (<1,000 CFU/mL) 05/14/19 03:23 Aerobic Blood Culture - Final Blood Venous Not Reportable Anaerobic Blood Culture - Final Not Reportable Blood Culture - Final No Growth Day 5 05/14/19 03:06 Aerobic Blood Culture - Final Blood Venous Not Reportable Anaerobic Blood Culture - Final Not Reportable Blood Culture - Final No Growth Day 5 05/14/19 02:31 Urine Culture - Final Urine Pseudomonas Aeruginosa Kim Albicans Assessment: 1. Encephalopathy. Present on admission, improving. Suspect multifactorial including UTI. 2. UTI in the setting of neurogenic bladder. Urine culture with pseudomonas and kim. Afebrile since admission. Leukocytosis has resolved. 3. MS with neurogenic bladder and self cauterization at home. 4. History of recurrent UTIs. 5. Seizure disorder. Plan: Continue Zosyn and fluconazole, will plan to treat with IV ABX for 2 weeks. Day 04/12. Discussed with urology about possible stent exchange while here and on IV ABX, Dr. Eaton will plan a stent removal on Wednesday05/29/19.
[2019-05-24] MEDS: Oxybutynin TAB* 5 MG PO SCH ×2 (10:46→21:09)
[2019-05-24] MEDS: Metoprolol Succinate XL TAB* 100 MG PO SCH (10:46)
[2019-05-24] MEDS: carBAMazepine TAB(*) 200 MG PO SCH ×2 (10:46→21:09)
[2019-05-24] MEDS: Baclofen TAB* 20 MG PO SCH ×4 (10:47→21:09)
[2019-05-24] MEDS: Insulin LISPRO* 1 UNITS UNIT SUBCUT SCH ×4 (10:49→21:21)
[2019-05-24] MEDS: Pantoprazole IV* 40 MG IV SCH (10:54)
[2019-05-24] MEDS: Fluconazole 200 MG IVPREMIX(*) 200 MG/100 ML BAG IVPB SCH (10:54)
[2019-05-24] MEDS: Acetaminophen TAB* 325 MG PO PRN ×2 (10:57→16:36)
[2019-05-24] MEDS: Docusate CAP* 100 MG PO PRN (16:35)
[2019-05-24] MEDS: Enoxaparin(*) 40 MG/0.4 ML SYR SUBCUT SCH (16:35)
--- NOTE | 2019-05-24 18:24 | PN ---
Subjective Date of Service: 05/24/19 Interval History: Patient seen and examined. at bedside. Patient complaining of all over back pain, cannot articulate type or quality. No fevers, no further overnight events noted. Discussed POC for the day with at length. Family History: Unchanged from Admission Social History: Unchanged from Admission Past Medical History: Unchanged from Admission Objective Active Medications: Acetaminophen (Tylenol Tab*) 650 mg PO Q4H PRN PRN Reason: PAIN Last Admin: 05/24/19 16:36 Dose: 650 mg Albuterol/Ipratropium (Duoneb (Albuterol 2.5 Mg/Ipratropium 0.5 Mg)) 1 neb INH Q2H PRN PRN Reason: SOB/WHEEZING Atorvastatin Calcium (Lipitor*) 40 mg PO BEDTIME [facility] Last Admin: 05/23/19 22:17 Dose: 40 mg Baclofen (Lioresal Tab*) 20 mg PO QID [facility] Last Admin: 05/24/19 16:35 Dose: 20 mg Betamethasone/Clotrimazole (Lotrisone Cream*) 1 applic TOPICAL [address] [facility] Last Admin: 05/24/19 00:16 Dose: Not Given Carbamazepine (Tegretol Tab(*)) 200 mg PO BID [facility] Last Admin: 05/24/19 10:46 Dose: 200 mg Dextrose (Dextrose 50% Vial 50 Ml*) 25 ml IV PUSH .FOR FS < 60 - SS PRN PRN Reason: FS < 60 Docusate Sodium (Colace Cap*) 100 mg PO BID PRN PRN Reason: CONSTIPATION Last Admin: 05/24/19 16:35 Dose: 100 mg Enoxaparin Sodium (Lovenox(*)) 40 mg SUBCUT Q24H [facility] Last Admin: 05/24/19 16:35 Dose: 40 mg Gentamicin Sulfate (Gentamicin 0.1% Ointment*) 1 applic TOPICAL [address] [facility] Stop: 06/03/19 21:01 Last Admin: 05/24/19 00:17 Dose: Not Given Heparin Sodium (Porcine) (Heparin Flush Picc/Ml/Cvc(*)) 1 - 3 ml FLUSH 0600, 1800 [facility]; Protocol Last Admin: 05/24/19 16:35 Dose: 1 ml Hydralazine HCl (Apresoline Iv*) 5 mg IV SLOW PU Q6H PRN PRN Reason: SYSTOLIC BP GREATER THAN: Last Admin: 05/20/19 04:04 Dose: 5 mg Piperacillin Sod/Tazobactam (Sod 3.375 gm/ Sodium Chloride) 100 mls @ 25 mls/ hr IVPB Q8H [facility] Last Admin: 05/24/19 12:18 Dose: 25 mls/hr Fluconazole/Sodium Chloride (Diflucan 200 Mg Ivpremix(*)) 200 mg in 100 mls @ 100 mls/hr IVPB Q24H [facility] Last Admin: 05/24/19 10:54 Dose: 100 mls/hr Insulin Human Lispro (Humalog*) 0 units SUBCUT ACHS [facility]; Protocol Last Admin: 05/24/19 16:35 Dose: 2 units Metoprolol Succinate (Toprol Xl Tab*) 100 mg PO DAILY WITH MEAL [facility] Last Admin: 05/24/19 10:46 Dose: 100 mg Oxybutynin Chloride (Ditropan Tab*) 5 mg PO BID [facility] Last Admin: 05/24/19 10:46 Dose: 5 mg Pantoprazole Sodium (Protonix Iv*) 40 mg IV Q24H [facility] Last Admin: 05/24/19 10:54 Dose: 40 mg Polyethylene Glycol/Electrolytes (Miralax*) 17 gm PO DAILY PRN PRN Reason: CONSTIPATION Last Admin: 05/18/19 04:03 Dose: 17 gm Vital Signs - 8 hr 05/24/19 05/24/19 05/24/19 10:44 11:15 11:44 Temperature 97.9 F 98.8 F 98.3 F Pulse Rate 81 76 76 Respiratory 20 14 Rate Blood Pressure 123/73 133/75 128/68 (mmHg) O2 Sat by Pulse 97 96 95 Oximetry 05/24/19 15:15 Temperature 97.0 F Pulse Rate 71 Respiratory 16 Rate Blood Pressure 126/62 (mmHg) O2 Sat by Pulse 97 Oximetry Oxygen Devices in Use Now: None Appearance: alert, ill-appearing, NAD Eyes: PERRLA Ears/Nose/Mouth/Throat: Mucous Membranes Moist Neck: NL Appearance and Movements; NL JVP, Trachea Midline Respiratory: Symmetrical Chest Expansion and Respiratory Effort, Clear to Auscultation Cardiovascular: NL Sounds; No Murmurs; No JVD, RRR Abdominal: NL Sounds; No Tenderness; No Distention, No Hepatosplenomegaly Extremities: No Edema Skin: - - sacral/buttocks wounds dressed, see wound care notes Neurological: - - general weakness Lines/Tubes/Other Access: Clean, Dry and Intact Wise Result Diagrams: 05/24/19 04:55 05/24/19 04:55 Additional Lab and Data: Above labs were pulled into the note, when note was edited prior to signing. See below for labs from the day of consultation. Laboratory Tests 05/14/19 05/16/19 05/16/19 03:06 11:48 11:48 WBC 13.1 H Hgb 10.7 L Hct 32 L Plt Count 191 Sodium 134 L Potassium 4.1 Chloride 107 Carbon Dioxide 20 L BUN 17 Creatinine 1.26 H Glucose 274 H Total Protein 7.7 Albumin 3.9 Microbiology and Other Data: Microbiology 05/14/19 02:31 Urine Culture - Preliminary Urine Pseudomonas Aeruginosa 05/14/19 03:23 Aerobic Blood Culture - Final Blood Venous Not Reportable Anaerobic Blood Culture - Final Not Reportable Blood Culture - Preliminary No Growth Day 1 05/14/19 03:06 Aerobic Blood Culture - Final Blood Venous Not Reportable Anaerobic Blood Culture - Final Not Reportable Blood Culture - Preliminary No Growth Day 1 Diagnostic Imaging: Patient Name: LISA AC Medical Record#: [id number] Ordering Physician: Emma Kearney MD Acct.#: [id number] : 1950 Age: 69 Sex: F Location: [address] [place] [address] MEDICAL/TELEMETRY Exam Date: 05/15/191451 ADM Status: ADM IN Order Information: CT ABD/PEL W/O Accession Number: [id number] CPT: 23200 CLINICAL HISTORY: eval for renal/ureteral stones COMPARISON: April 26, 2019 TECHNIQUE: Multiple contiguous axial CT scans were obtained of the abdomen and pelvis, without intravenous contrast enhancement. Coronal and sagittal multiplanar reformations are submitted for review. Oral contrast was not administered. FINDINGS: Evaluation is limited due to the lack of intravenous contrast. This limits evaluation of the solid organs and vasculature. LUNG BASES: The lung bases are clear. LIVER: The liver is normal in shape, size, contour, and attenuation. BILE DUCTS: There is no intrahepatic or extrahepatic biliary dilatation. GALLBLADDER: The gallbladder is not visualized. Surgical clips are noted in the gallbladder fossa. PANCREAS: The pancreas is normal, without mass or ductal dilatation. SPLEEN: Normal in size and appearance. UPPER GI TRACT: Evaluation of the gastrointestinal tract is limited by incomplete gastric distention. The upper GI tract is unremarkable. SMALL BOWEL AND MESENTERY: The small bowel is normal in contour, course, and caliber. There is no obstruction or dilatation. COLON: The colon is normal in contour, course, caliber. There is no pericolonic inflammatory change. ADRENALS: Normal bilaterally. KIDNEYS: There is a punctate calculus of the lower pole of the left kidney, stable. There is a left ureteral stent. There is no appreciable left ureteral calculus. There is mild pelvic caliectasis on the left. BLADDER: The bladder is collapsed around a Wise catheter. PELVIC ORGANS: The uterus is fibroid AORTA: There is calcific atherosclerotic disease of the abdominal aorta and its branches, without aneurysmal dilatation IVC: Unremarkable LYMPH NODES: There are multiple retroperitoneal lymph nodes. These are rounded and measure up to 1 cm in short axis. These are stable. ABDOMINAL WALL: There is no evidence for abdominal wall hernia. BONES AND SOFT TISSUES: Subcutaneous soft tissue calcifications are noted consistent with injection granulomas. OTHER: None MILD LEFT-SIDED HYDRONEPHROSIS. FIBROID UTERUS. ATHEROSCLEROSIS. Assess/Plan/Problems-Billing Assessment: Ms. Ac is a 69 yo F with PMH of neurogenic bladder who selfcaths, HTN, HLD, MS , DM2, and seizure disorder; who presented with hypotension altered mental status, found to have UTI. - Patient Problems (1) Acute encephalopathy Code(s): G93.40 - ENCEPHALOPATHY, UNSPECIFIED SNOMED Code(s): 62061566 Comment: - Mental status waxing and waning - Multifactorial: sepsis, progressive MS - Appreciate Neuro consult; recommends avoiding benzos and antipsychotics - Neuro checks q4h - Supportive care (2) Neurogenic bladder Current Visit: No Code(s): N31.9 - NEUROMUSCULAR DYSFUNCTION OF BLADDER, UNSPECIFIED SNOMED Code(s): 728616572 Comment: - Typically straight caths at home with assistance from - Wise while in the hospital; question if it would be better for her to go home with a Wise rather than straight cathing d/t recurrent infections - Will discuss with urology (3) Multiple sclerosis Code(s): G35 - MULTIPLE SCLEROSIS SNOMED Code(s): 13692446 Comment: - Progressive MS with decline - Appreciate Neuro consult - Supportive care (4) Nephrolithiasis Code(s): N20.0 - CALCULUS OF KIDNEY SNOMED Code(s): 29315276 Comment: - Mild hydro on CT above - Plan for stent removal wednesday with Dr. Eaton (5) Seizure disorder Code(s): G40.909 - EPILEPSY, UNSP, NOT INTRACTABLE, WITHOUT STATUS EPILEPTICUS SNOMED Code(s): 945195989 Comment: - EEG unremarkable for seizure activity - Continue carbamazepine (6) UTI (urinary tract infection) Comment: - Recent stent with Dr Eaton with plan for removal on Wednesday - Urine culture growing Pseudomonas and yeast; repeat culture without growth - Appreciate ID consult; recommends total of 2 weeks of treatment - Continue Zosyn (day 07/13), fluconazole (day 04/12) - Continue wise (7) DM2 (diabetes mellitus, type 2) Comment: - Blood glucose 100-200s - Hold glipizide and poiglitazone to avoid precipitating hypoglycemia and AMS - Continue Lispro SS (8) Sacral decubitus ulcer, stage II Code(s): L89.152 - PRESSURE ULCER OF SACRAL REGION, STAGE 2 SNOMED Code(s): 692286940 Comment: - Wound care recommendations noted - Continue offloading (9) Hyperlipidemia Code(s): E78.5 - HYPERLIPIDEMIA, UNSPECIFIED SNOMED Code(s): 10106861 Comment: - Continue atorvastatin (10) DVT prophylaxis Code(s): ELS9274 - SNOMED Code(s): 634651105 Comment: - Lovenox (11) Full code status Code(s): Z78.9 - OTHER SPECIFIED HEALTH STATUS SNOMED Code(s): 839086932 Comment: Status and Disposition: Inpatient. Anticipate d/c home vs [facility] when medically stable and cleared by ID and urology.
[2019-05-24] MEDS: Atorvastatin* 40 MG TAB PO SCH (21:09)
[2019-05-25] MEDS: ZOSYN 3.375 GM Q8H per EXTENDED INFUSION IVPB SCH ×6 (05:05→21:24)
[2019-05-25] MEDS: Metoprolol Succinate XL TAB* 100 MG PO SCH (08:56)
[2019-05-25] MEDS: Baclofen TAB* 20 MG PO SCH ×4 (08:56→21:20)
[2019-05-25] MEDS: Insulin LISPRO* 1 UNITS UNIT SUBCUT SCH ×4 (08:56→21:44)
[2019-05-25] MEDS: Oxybutynin TAB* 5 MG PO SCH ×2 (08:56→21:20)
[2019-05-25] MEDS: carBAMazepine TAB(*) 200 MG PO SCH ×2 (08:56→21:20)
[2019-05-25] MEDS: Fluconazole 200 MG IVPREMIX(*) 200 MG/100 ML BAG IVPB SCH (11:05)
[2019-05-25] MEDS: Pantoprazole IV* 40 MG IV SCH (11:05)
[2019-05-25] MEDS: Enoxaparin(*) 40 MG/0.4 ML SYR SUBCUT SCH (16:44)
--- NOTE | 2019-05-25 16:56 | PN ---
Subjective Date of Service: 05/25/19 Interval History: Patient seen and examined. No acute overnight events. Per , no BM yet. Patient states back pain improved. No fevers or chills. Denies SOB. Mentation does appear to be improved. Family History: Unchanged from Admission Social History: Unchanged from Admission Past Medical History: Unchanged from Admission Objective Active Medications: Acetaminophen (Tylenol Tab*) 650 mg PO Q4H PRN PRN Reason: PAIN Last Admin: 05/24/19 16:36 Dose: 650 mg Albuterol/Ipratropium (Duoneb (Albuterol 2.5 Mg/Ipratropium 0.5 Mg)) 1 neb INH Q2H PRN PRN Reason: SOB/WHEEZING Atorvastatin Calcium (Lipitor*) 40 mg PO BEDTIME [facility] Last Admin: 05/24/19 21:09 Dose: 40 mg Baclofen (Lioresal Tab*) 20 mg PO QID [facility] Last Admin: 05/25/19 16:44 Dose: 20 mg Betamethasone/Clotrimazole (Lotrisone Cream*) 1 applic TOPICAL 2100 [facility] Last Admin: 05/24/19 21:12 Dose: Not Given Carbamazepine (Tegretol Tab(*)) 200 mg PO BID [facility] Last Admin: 05/25/19 08:56 Dose: 200 mg Dextrose (Dextrose 50% Vial 50 Ml*) 25 ml IV PUSH .FOR FS < 60 - SS PRN PRN Reason: FS < 60 Docusate Sodium (Colace Cap*) 100 mg PO BID PRN PRN Reason: CONSTIPATION Last Admin: 05/24/19 16:35 Dose: 100 mg Enoxaparin Sodium (Lovenox(*)) 40 mg SUBCUT Q24H [facility] Last Admin: 05/25/19 16:44 Dose: 40 mg Gentamicin Sulfate (Gentamicin 0.1% Ointment*) 1 applic TOPICAL 2100 [facility] Stop: 06/03/19 21:01 Last Admin: 05/24/19 21:12 Dose: Not Given Heparin Sodium (Porcine) (Heparin Flush Picc/Ml/Cvc(*)) 1 - 3 ml FLUSH 0600, 1800 [facility]; Protocol Last Admin: 05/25/19 06:04 Dose: 1 ml Hydralazine HCl (Apresoline Iv*) 5 mg IV SLOW PU Q6H PRN PRN Reason: SYSTOLIC BP GREATER THAN: Last Admin: 05/20/19 04:04 Dose: 5 mg Piperacillin Sod/Tazobactam (Sod 3.375 gm/ Sodium Chloride) 100 mls @ 25 mls/ hr IVPB Q8H [facility] Last Admin: 05/25/19 13:14 Dose: 25 mls/hr Fluconazole/Sodium Chloride (Diflucan 200 Mg Ivpremix(*)) 200 mg in 100 mls @ 100 mls/hr IVPB Q24H [facility] Last Admin: 05/25/19 11:05 Dose: 100 mls/hr Insulin Human Lispro (Humalog*) 0 units SUBCUT ACHS [facility]; Protocol Last Admin: 05/25/19 13:14 Dose: 4 units Metoprolol Succinate (Toprol Xl Tab*) 100 mg PO DAILY WITH MEAL [facility] Last Admin: 05/25/19 08:56 Dose: 100 mg Oxybutynin Chloride (Ditropan Tab*) 5 mg PO BID [facility] Last Admin: 05/25/19 08:56 Dose: 5 mg Pantoprazole Sodium (Protonix Iv*) 40 mg IV Q24H [facility] Last Admin: 05/25/19 11:05 Dose: 40 mg Polyethylene Glycol/Electrolytes (Miralax*) 17 gm PO DAILY PRN PRN Reason: CONSTIPATION Last Admin: 05/18/19 04:03 Dose: 17 gm Vital Signs - 8 hr 05/25/19 12:20 Temperature 98.2 F Pulse Rate 76 Respiratory 20 Rate Blood Pressure 127/66 (mmHg) O2 Sat by Pulse 93 Oximetry Oxygen Devices in Use Now: None Appearance: pale, NAD Eyes: PERRLA Ears/Nose/Mouth/Throat: NL Teeth, Lips, Gums, Mucous Membranes Moist Neck: NL Appearance and Movements; NL JVP, Trachea Midline Respiratory: Symmetrical Chest Expansion and Respiratory Effort, Clear to Auscultation Cardiovascular: NL Sounds; No Murmurs; No JVD, RRR, No Edema Abdominal: NL Sounds; No Tenderness; No Distention Extremities: No Edema, No Clubbing, Cyanosis, - Skin: - - chronic wounds to buttocks, dressed Neurological: Alert and Oriented x 3, - - general weakness 2/2 MS, at baseline Nutrition: Taking PO's Result Diagrams: 05/24/19 04:55 05/24/19 04:55 Additional Lab and Data: Above labs were pulled into the note, when note was edited prior to signing. See below for labs from the day of consultation. Laboratory Tests 05/14/19 05/16/19 05/16/19 03:06 11:48 11:48 WBC 13.1 H Hgb 10.7 L Hct 32 L Plt Count 191 Sodium 134 L Potassium 4.1 Chloride 107 Carbon Dioxide 20 L BUN 17 Creatinine 1.26 H Glucose 274 H Total Protein 7.7 Albumin 3.9 Microbiology and Other Data: Microbiology 05/14/19 02:31 Urine Culture - Preliminary Urine Pseudomonas Aeruginosa 05/14/19 03:23 Aerobic Blood Culture - Final Blood Venous Not Reportable Anaerobic Blood Culture - Final Not Reportable Blood Culture - Preliminary No Growth Day 1 05/14/19 03:06 Aerobic Blood Culture - Final Blood Venous Not Reportable Anaerobic Blood Culture - Final Not Reportable Blood Culture - Preliminary No Growth Day 1 Diagnostic Imaging: Patient Name: LISA AC Medical Record#: [id number] Ordering Physician: Emma Kearney MD Acct.#: [id number] : 1950 Age: 69 Sex: F Location: [address] [place] [address]/TELEMETRY Exam Date: 05/15/19 145 ADM Status: ADM IN Order Information: CT ABD/PEL W/O Accession Number: [id number] CPT: 54745 CLINICAL HISTORY: eval for renal/ureteral stones COMPARISON: April 26, 2019 TECHNIQUE: Multiple contiguous axial CT scans were obtained of the abdomen and pelvis, without intravenous contrast enhancement. Coronal and sagittal multiplanar reformations are submitted for review. Oral contrast was not administered. FINDINGS: Evaluation is limited due to the lack of intravenous contrast. This limits evaluation of the solid organs and vasculature. LUNG BASES: The lung bases are clear. LIVER: The liver is normal in shape, size, contour, and attenuation. BILE DUCTS: There is no intrahepatic or extrahepatic biliary dilatation. GALLBLADDER: The gallbladder is not visualized. Surgical clips are noted in the gallbladder fossa. PANCREAS: The pancreas is normal, without mass or ductal dilatation. SPLEEN: Normal in size and appearance. UPPER GI TRACT: Evaluation of the gastrointestinal tract is limited by incomplete gastric distention. The upper GI tract is unremarkable. SMALL BOWEL AND MESENTERY: The small bowel is normal in contour, course, and caliber. There is no obstruction or dilatation. COLON: The colon is normal in contour, course, caliber. There is no pericolonic inflammatory change. ADRENALS: Normal bilaterally. KIDNEYS: There is a punctate calculus of the lower pole of the left kidney, stable. There is a left ureteral stent. There is no appreciable left ureteral calculus. There is mild pelvic caliectasis on the left. BLADDER: The bladder is collapsed around a Wise catheter. PELVIC ORGANS: The uterus is fibroid AORTA: There is calcific atherosclerotic disease of the abdominal aorta and its branches, without aneurysmal dilatation IVC: Unremarkable LYMPH NODES: There are multiple retroperitoneal lymph nodes. These are rounded and measure up to 1 cm in short axis. These are stable. ABDOMINAL WALL: There is no evidence for abdominal wall hernia. BONES AND SOFT TISSUES: Subcutaneous soft tissue calcifications are noted consistent with injection granulomas. OTHER: None MILD LEFT-SIDED HYDRONEPHROSIS. FIBROID UTERUS. ATHEROSCLEROSIS. Assess/Plan/Problems-Billing Assessment: Ms. Ac is a 69 yo F with PMH of neurogenic bladder who selfcaths, HTN, HLD, MS , DM2, and seizure disorder; who presented with hypotension altered mental status, found to have UTI. - Patient Problems (1) Acute encephalopathy Code(s): G93.40 - ENCEPHALOPATHY, UNSPECIFIED SNOMED Code(s): 96740890 Comment: - Mental status improving - Multifactorial: sepsis, progressive MS - Appreciate Neuro consult; recommends avoiding benzos and antipsychotics - decrease neuro checks to q shift - Supportive care (2) Neurogenic bladder Current Visit: No Code(s): N31.9 - NEUROMUSCULAR DYSFUNCTION OF BLADDER, UNSPECIFIED SNOMED Code(s): 525163002 Comment: - Typically straight caths at home with assistance from - Wise while in the hospital; question if it would be better for her to go home with a Wise rather than straight cathing d/t recurrent infections - Will discuss with urology (3) Multiple sclerosis Code(s): G35 - MULTIPLE SCLEROSIS SNOMED Code(s): 97201266 Comment: - Progressive MS with decline - Appreciate Neuro consult - Supportive care (4) Nephrolithiasis Code(s): N20.0 - CALCULUS OF KIDNEY SNOMED Code(s): 59677818 Comment: - Mild hydro on CT above - Plan for stent removal wednesday with Dr. Eaton (5) Seizure disorder Code(s): G40.909 - EPILEPSY, UNSP, NOT INTRACTABLE, WITHOUT STATUS EPILEPTICUS SNOMED Code(s): 689513736 Comment: - EEG unremarkable for seizure activity - Continue carbamazepine (6) UTI (urinary tract infection) Comment: - Recent stent with Dr Eaton with plan for removal on Wednesday - Urine culture growing Pseudomonas and yeast; repeat culture without growth - Appreciate ID consult; recommends total of 2 weeks of treatment - Continue Zosyn (day 08/12), fluconazole (day 05/13) - Continue wise (7) DM2 (diabetes mellitus, type 2) Comment: - Blood glucose 100-200s - Hold glipizide and poiglitazone to avoid precipitating hypoglycemia and AMS - Continue Lispro SS (8) Sacral decubitus ulcer, stage II Code(s): L89.152 - PRESSURE ULCER OF SACRAL REGION, STAGE 2 SNOMED Code(s): 082722493 Comment: - Wound care recommendations noted - Continue offloading (9) Hyperlipidemia Code(s): E78.5 - HYPERLIPIDEMIA, UNSPECIFIED SNOMED Code(s): 97910547 Comment: - Continue atorvastatin (10) DVT prophylaxis Code(s): [id number] - SNOMED Code(s): 911892335 Comment: - Lovenox (11) Full code status Code(s): Z78.9 - OTHER SPECIFIED HEALTH STATUS SNOMED Code(s): 773590039 Comment: Status and Disposition: Inpatient. Anticipate d/c home vs [facility] when medically stable and cleared by ID and urology, likely early next week.
[2019-05-25] MEDS: Atorvastatin* 40 MG TAB PO SCH (21:20)
[2019-05-25] MEDS: Docusate CAP* 100 MG PO PRN (21:45)
[2019-05-26] MEDS: ZOSYN 3.375 GM Q8H per EXTENDED INFUSION IVPB SCH ×6 (05:04→21:02)
[2019-05-26] MEDS: Clotrimazole/Betamethasone CREAM* 15 GM TOPICAL SCH ×2 (05:26→21:34)
[2019-05-26] MEDS: GENTAMICIN 0.1% TOPICAL SCH ×2 (05:26→21:34)
[2019-05-26] MEDS: Acetaminophen TAB* 325 MG PO PRN ×2 (05:31→13:08)
[2019-05-26] MEDS: Baclofen TAB* 20 MG PO SCH ×4 (08:12→21:02)
[2019-05-26] MEDS: Insulin LISPRO* 1 UNITS UNIT SUBCUT SCH ×4 (08:12→21:28)
[2019-05-26] MEDS: Polyethylene Glycol 3350* 17 GM PACKET PO PRN (08:13)
[2019-05-26] MEDS: Oxybutynin TAB* 5 MG PO SCH ×2 (08:13→21:03)
[2019-05-26] MEDS: carBAMazepine TAB(*) 200 MG PO SCH ×2 (08:13→21:02)
[2019-05-26] MEDS: Metoprolol Succinate XL TAB* 100 MG PO SCH (08:13)
[2019-05-26] MEDS: Docusate CAP* 100 MG PO PRN (08:13)
[2019-05-26] MEDS: Fluconazole 200 MG IVPREMIX(*) 200 MG/100 ML BAG IVPB SCH (11:59)
[2019-05-26] MEDS: Pantoprazole IV* 40 MG IV SCH (12:02)
--- NOTE | 2019-05-26 16:33 | PN ---
Subjective Date of Service: 05/26/19 Interval History: Patient seen and examined. No acute overnight events. Seems a little more lethargic today, but still answering questions. No fever overnight. Patient just states she is "tired" but has no other complaints. Family History: Unchanged from Admission Social History: Unchanged from Admission Past Medical History: Unchanged from Admission Objective Active Medications: Acetaminophen (Tylenol Tab*) 650 mg PO Q4H PRN PRN Reason: PAIN Last Admin: 05/26/19 13:08 Dose: 650 mg Albuterol/Ipratropium (Duoneb (Albuterol 2.5 Mg/Ipratropium 0.5 Mg)) 1 neb INH Q2H PRN PRN Reason: SOB/WHEEZING Atorvastatin Calcium (Lipitor*) 40 mg PO BEDTIME [facility] Last Admin: 05/25/19 21:20 Dose: 40 mg Baclofen (Lioresal Tab*) 20 mg PO QID [facility] Last Admin: 05/26/19 13:08 Dose: 20 mg Betamethasone/Clotrimazole (Lotrisone Cream*) 1 applic TOPICAL 2100 [facility] Last Admin: 05/26/19 05:26 Dose: 1 applic Carbamazepine (Tegretol Tab(*)) 200 mg PO BID [facility] Last Admin: 05/26/19 08:13 Dose: 200 mg Dextrose (Dextrose 50% Vial 50 Ml*) 25 ml IV PUSH .FOR FS < 60 - SS PRN PRN Reason: FS < 60 Docusate Sodium (Colace Cap*) 100 mg PO BID PRN PRN Reason: CONSTIPATION Last Admin: 05/26/19 08:13 Dose: 100 mg Enoxaparin Sodium (Lovenox(*)) 40 mg SUBCUT Q24H [facility] Last Admin: 05/25/19 16:44 Dose: 40 mg Gentamicin Sulfate (Gentamicin 0.1% Ointment*) 1 applic TOPICAL 2100 [facility] Stop: 06/03/19 21:01 Last Admin: 05/26/19 05:26 Dose: 1 applic Heparin Sodium (Porcine) (Heparin Flush Picc/Ml/Cvc(*)) 1 - 3 ml FLUSH 0600, 1800 [facility]; Protocol Last Admin: 05/26/19 04:54 Dose: 2 ml Hydralazine HCl (Apresoline Iv*) 5 mg IV SLOW PU Q6H PRN PRN Reason: SYSTOLIC BP GREATER THAN: Last Admin: 05/20/19 04:04 Dose: 5 mg Piperacillin Sod/Tazobactam (Sod 3.375 gm/ Sodium Chloride) 100 mls @ 25 mls/ hr IVPB Q8H [facility] Last Admin: 05/26/19 13:08 Dose: 25 mls/hr Fluconazole/Sodium Chloride (Diflucan 200 Mg Ivpremix(*)) 200 mg in 100 mls @ 100 mls/hr IVPB Q24H [facility] Last Admin: 05/26/19 11:59 Dose: 100 mls/hr Insulin Human Lispro (Humalog*) 0 units SUBCUT ACHS [facility]; Protocol Last Admin: 05/26/19 13:08 Dose: 4 units Metoprolol Succinate (Toprol Xl Tab*) 100 mg PO DAILY WITH MEAL [facility] Last Admin: 05/26/19 08:13 Dose: 100 mg Oxybutynin Chloride (Ditropan Tab*) 5 mg PO BID [facility] Last Admin: 05/26/19 08:13 Dose: 5 mg Pantoprazole Sodium (Protonix Iv*) 40 mg IV Q24H [facility] Last Admin: 05/26/19 12:02 Dose: 40 mg Polyethylene Glycol/Electrolytes (Miralax*) 17 gm PO DAILY PRN PRN Reason: CONSTIPATION Last Admin: 05/26/19 08:13 Dose: 17 gm Vital Signs - 8 hr 05/26/19 11:42 Temperature 98.5 F Pulse Rate 79 Respiratory 19 Rate Blood Pressure 118/70 (mmHg) O2 Sat by Pulse 96 Oximetry Oxygen Devices in Use Now: None Appearance: sleepy, NAD Eyes: PERRLA Ears/Nose/Mouth/Throat: Mucous Membranes Moist Neck: NL Appearance and Movements; NL JVP, Trachea Midline Respiratory: Symmetrical Chest Expansion and Respiratory Effort Abdominal: NL Sounds; No Tenderness; No Distention Extremities: No Edema, No Clubbing, Cyanosis Skin: - - sacral wound dressed Neurological: - - lethargic, answers mostly appropriately but slow, baseline MS changes Nutrition: Taking PO's Result Diagrams: 05/24/19 04:55 05/24/19 04:55 Additional Lab and Data: Above labs were pulled into the note, when note was edited prior to signing. See below for labs from the day of consultation. Laboratory Tests 05/14/19 05/16/19 05/16/19 03:06 11:48 11:48 WBC 13.1 H Hgb 10.7 L Hct 32 L Plt Count 191 Sodium 134 L Potassium 4.1 Chloride 107 Carbon Dioxide 20 L BUN 17 Creatinine 1.26 H Glucose 274 H Total Protein 7.7 Albumin 3.9 Microbiology and Other Data: Microbiology 05/14/19 02:31 Urine Culture - Preliminary Urine Pseudomonas Aeruginosa 05/14/19 03:23 Aerobic Blood Culture - Final Blood Venous Not Reportable Anaerobic Blood Culture - Final Not Reportable Blood Culture - Preliminary No Growth Day 1 05/14/19 03:06 Aerobic Blood Culture - Final Blood Venous Not Reportable Anaerobic Blood Culture - Final Not Reportable Blood Culture - Preliminary No Growth Day 1 Diagnostic Imaging: Patient Name: LISA AC Medical Record#: [id number] Ordering Physician: Emma Kearney MD Acct.#: [id number] : 1950 Age: 69 Sex: F Location: [address] [place] [address] MEDICAL/TELEMETRY Exam Date: 05/15/191451 ADM Status: ADM IN Order Information: CT ABD/PEL W/O Accession Number: [id number] CPT: 02626 CLINICAL HISTORY: eval for renal/ureteral stones COMPARISON: April 26, 2019 TECHNIQUE: Multiple contiguous axial CT scans were obtained of the abdomen and pelvis, without intravenous contrast enhancement. Coronal and sagittal multiplanar reformations are submitted for review. Oral contrast was not administered. FINDINGS: Evaluation is limited due to the lack of intravenous contrast. This limits evaluation of the solid organs and vasculature. LUNG BASES: The lung bases are clear. LIVER: The liver is normal in shape, size, contour, and attenuation. BILE DUCTS: There is no intrahepatic or extrahepatic biliary dilatation. GALLBLADDER: The gallbladder is not visualized. Surgical clips are noted in the gallbladder fossa. PANCREAS: The pancreas is normal, without mass or ductal dilatation. SPLEEN: Normal in size and appearance. UPPER GI TRACT: Evaluation of the gastrointestinal tract is limited by incomplete gastric distention. The upper GI tract is unremarkable. SMALL BOWEL AND MESENTERY: The small bowel is normal in contour, course, and caliber. There is no obstruction or dilatation. COLON: The colon is normal in contour, course, caliber. There is no pericolonic inflammatory change. ADRENALS: Normal bilaterally. KIDNEYS: There is a punctate calculus of the lower pole of the left kidney, stable. There is a left ureteral stent. There is no appreciable left ureteral calculus. There is mild pelvic caliectasis on the left. BLADDER: The bladder is collapsed around a Wise catheter. PELVIC ORGANS: The uterus is fibroid AORTA: There is calcific atherosclerotic disease of the abdominal aorta and its branches, without aneurysmal dilatation IVC: Unremarkable LYMPH NODES: There are multiple retroperitoneal lymph nodes. These are rounded and measure up to 1 cm in short axis. These are stable. ABDOMINAL WALL: There is no evidence for abdominal wall hernia. BONES AND SOFT TISSUES: Subcutaneous soft tissue calcifications are noted consistent with injection granulomas. OTHER: None MILD LEFT-SIDED HYDRONEPHROSIS. FIBROID UTERUS. ATHEROSCLEROSIS. Assess/Plan/Problems-Billing Assessment: Ms. Ac is a 69 yo F with PMH of neurogenic bladder who selfcaths, HTN, HLD, MS , DM2, and seizure disorder; who presented with hypotension altered mental status, found to have UTI. - Patient Problems (1) Acute encephalopathy Code(s): G93.40 - ENCEPHALOPATHY, UNSPECIFIED SNOMED Code(s): 76175054 Comment: - Mental status waxing and waning - Multifactorial: sepsis, progressive MS - Appreciate Neuro consult; recommends avoiding benzos and antipsychotics - decrease neuro checks to q shift - Supportive care (2) Neurogenic bladder Current Visit: No Code(s): N31.9 - NEUROMUSCULAR DYSFUNCTION OF BLADDER, UNSPECIFIED SNOMED Code(s): 421229091 Comment: - Typically straight caths at home with assistance from - Wise while in the hospital; question if it would be better for her to go home with a Wise rather than straight cathing d/t recurrent infections - Will discuss with urology (3) Multiple sclerosis Code(s): G35 - MULTIPLE SCLEROSIS SNOMED Code(s): 92930846 Comment: - Progressive MS with decline - Appreciate Neuro consult - Supportive care (4) Nephrolithiasis Code(s): N20.0 - CALCULUS OF KIDNEY SNOMED Code(s): 93126925 Comment: - Mild hydro on CT above - Plan for stent removal wednesday with Dr. Eaton (5) Seizure disorder Code(s): G40.909 - EPILEPSY, UNSP, NOT INTRACTABLE, WITHOUT STATUS EPILEPTICUS SNOMED Code(s): 201308069 Comment: - EEG unremarkable for seizure activity - Continue carbamazepine (6) UTI (urinary tract infection) Comment: - Recent stent with Dr Eaton with plan for removal on Wednesday - Urine culture growing Pseudomonas and yeast; repeat culture without growth - Appreciate ID consult; recommends total of 2 weeks of treatment - Continue Zosyn (day ), fluconazole (day 06/12) - Continue wise (7) DM2 (diabetes mellitus, type 2) Comment: - Blood glucose 100-200s - Hold glipizide and poiglitazone to avoid precipitating hypoglycemia and AMS - Continue Lispro SS (8) Sacral decubitus ulcer, stage II Code(s): L89.152 - PRESSURE ULCER OF SACRAL REGION, STAGE 2 SNOMED Code(s): 526288474 Comment: - Wound care recommendations noted - Continue offloading (9) Hyperlipidemia Code(s): E78.5 - HYPERLIPIDEMIA, UNSPECIFIED SNOMED Code(s): 17826008 Comment: - Continue atorvastatin (10) DVT prophylaxis Code(s): [id number] - SNOMED Code(s): 267459719 Comment: - Lovenox (11) Full code status Code(s): Z78.9 - OTHER SPECIFIED HEALTH STATUS SNOMED Code(s): 205168337 Comment: Status and Disposition: Inpatient. Anticipate d/c home vs [facility] when medically stable and cleared by ID and urology, likely early next week.
[2019-05-26] MEDS: Enoxaparin(*) 40 MG/0.4 ML SYR SUBCUT SCH (19:11)
[2019-05-26] MEDS: Atorvastatin* 40 MG TAB PO SCH (21:02)
[2019-05-27] MEDS: ZOSYN 3.375 GM Q8H per EXTENDED INFUSION IVPB SCH ×4 (04:58→13:18)
[2019-05-27 06:47] LABS: ABS Eosinophils 0.2 10^3/ul (0-0.6); ABS Monocytes 0.7 10^3/ul (0-0.8); ABS Neutrophils 5.6 10^3/ul (1.5-7.7); Hematocrit 30 % (35-47); Hemoglobin 10.2 g/dL (12.0-16.0); Lymphocyte % 23.8 %; Mean Corpuscular HGB Conc 34 g/dL (31-36); Mean Corpuscular Hemoglobin 30 pg (27-31); Mean Corpuscular Volume 89 fL (80-97); Mean Platelet Volume 8.2 fL (7.4-10.4); Platelet Count 300 10^3/uL (150-450); Red Blood Count 3.39 10^6 /uL (3.70-4.87); Red Cell Distribution Width 17 % (10-15); White Blood Count 8.5 10^3/uL (3.5-10.8)
[2019-05-27 07:49] LABS: Albumin 3.3 g/dL (3.2-5.2); Albumin/Globulin Ratio 0.9 (1-3); BUN/Creatinine Ratio 19.6 (8-20); Calcium 9.3 mg/dL (8.6-10.3); EGFR African American 61.7 (>60); Globulin 3.6 g/dL (2-4); Potassium 4.3 mmol/L (3.5-5.0); Total Bilirubin 0.2 mg/dL (0.2-1.0); Total Protein 6.9 g/dL (6.4-8.9)
[2019-05-27] MEDS: Metoprolol Succinate XL TAB* 100 MG PO SCH (08:47)
[2019-05-27] MEDS: carBAMazepine TAB(*) 200 MG PO SCH ×2 (08:47→20:42)
[2019-05-27] MEDS: Insulin LISPRO* 1 UNITS UNIT SUBCUT SCH ×4 (08:47→20:36)
[2019-05-27] MEDS: Oxybutynin TAB* 5 MG PO SCH ×2 (08:47→20:35)
[2019-05-27] MEDS: Baclofen TAB* 20 MG PO SCH ×4 (08:47→20:35)
[2019-05-27] MEDS: Fluconazole 200 MG IVPREMIX(*) 200 MG/100 ML BAG IVPB SCH (11:21)
[2019-05-27] MEDS: CMCS - Anastrozole (NF) 1 MG TAB PO SCH (11:21)
[2019-05-27] MEDS: Cholecalciferol TAB* 1000 UNITS PO SCH (11:21)
[2019-05-27] MEDS: Pantoprazole IV* 40 MG IV SCH (11:30)
[2019-05-27] MEDS: GENTAMICIN 0.1% TOPICAL SCH ×2 (11:50→20:44)
[2019-05-27] MEDS: Clotrimazole/Betamethasone CREAM* 15 GM TOPICAL SCH ×2 (11:50→20:44)
--- NOTE | 2019-05-27 16:58 | PN ---
Subjective Date of Service: 05/27/19 Interval History: Patient responds minimally with nodding her head, but doesn't do so appropriately most of the time. Does not verbally express herself to me during my evaluation. Somnolent at times during exam. Follows commands to open her eyes but does not follow other commands. Does not tell me her name when asked. Reportedly, when patient was sat upright in chair in the late afternoon, she was more interactive verbally and more alert. Family History: Unchanged from Admission Social History: Unchanged from Admission Past Medical History: Unchanged from Admission Objective Active Medications: Acetaminophen (Tylenol Tab*) 650 mg PO Q4H PRN PRN Reason: PAIN Last Admin: 05/26/19 13:08 Dose: 650 mg Albuterol/Ipratropium (Duoneb (Albuterol 2.5 Mg/Ipratropium 0.5 Mg)) 1 neb INH Q2H PRN PRN Reason: SOB/WHEEZING Anastrozole (Arimidex (Nf)) 1 mg PO 1200 [facility] Last Admin: 05/27/19 11:21 Dose: 1 mg Atorvastatin Calcium (Lipitor*) 40 mg PO BEDTIME [facility] Last Admin: 05/26/19 21:02 Dose: 40 mg Baclofen (Lioresal Tab*) 20 mg PO QID [facility] Last Admin: 05/27/19 13:23 Dose: 20 mg Betamethasone/Clotrimazole (Lotrisone Cream*) 1 applic TOPICAL 2100 [facility] Last Admin: 05/27/19 11:50 Dose: 1 applic Bisacodyl (Dulcolax Supp*) 10 mg OK DAILY PRN PRN Reason: CONSTIPATION Carbamazepine (Tegretol Tab(*)) 200 mg PO BID [facility] Last Admin: 05/27/19 08:47 Dose: 200 mg Cholecalciferol (Vitamin D Tab*) 1,000 units PO DAILY [facility] Last Admin: 05/27/19 11:21 Dose: 1,000 units Dextrose (Dextrose 50% Vial 50 Ml*) 25 ml IV PUSH .FOR FS < 60 - SS PRN PRN Reason: FS < 60 Docusate Sodium (Colace Cap*) 100 mg PO BID PRN PRN Reason: CONSTIPATION Last Admin: 05/26/19 08:13 Dose: 100 mg Enoxaparin Sodium (Lovenox(*)) 40 mg SUBCUT Q24H [facility] Last Admin: 05/26/19 19:11 Dose: 40 mg Gentamicin Sulfate (Gentamicin 0.1% Ointment*) 1 applic TOPICAL 2100 [facility] Stop: 06/03/19 21:01 Last Admin: 05/27/19 11:50 Dose: 1 applic Heparin Sodium (Porcine) (Heparin Flush Picc/Ml/Cvc(*)) 1 - 3 ml FLUSH 0600, 1800 [facility]; Protocol Last Admin: 05/27/19 06:25 Dose: Not Given Hydralazine HCl (Apresoline Iv*) 5 mg IV SLOW PU Q6H PRN PRN Reason: SYSTOLIC BP GREATER THAN: Last Admin: 05/20/19 04:04 Dose: 5 mg Piperacillin Sod/Tazobactam (Sod 3.375 gm/ Sodium Chloride) 100 mls @ 25 mls/ hr IVPB Q8H [facility] Last Admin: 05/27/19 13:18 Dose: 25 mls/hr Fluconazole/Sodium Chloride (Diflucan 200 Mg Ivpremix(*)) 200 mg in 100 mls @ 100 mls/hr IVPB Q24H [facility] Last Admin: 05/27/19 11:21 Dose: 100 mls/hr Insulin Human Lispro (Humalog*) 0 units SUBCUT ACHS [facility]; Protocol Last Admin: 05/27/19 13:23 Dose: 6 units Metoprolol Succinate (Toprol Xl Tab*) 100 mg PO DAILY WITH MEAL [facility] Last Admin: 05/27/19 08:47 Dose: 100 mg Oxybutynin Chloride (Ditropan Tab*) 5 mg PO BID [facility] Last Admin: 05/27/19 08:47 Dose: 5 mg Pantoprazole Sodium (Protonix Iv*) 40 mg IV Q24H [facility] Last Admin: 05/27/19 11:30 Dose: 40 mg Polyethylene Glycol/Electrolytes (Miralax*) 17 gm PO DAILY PRN PRN Reason: CONSTIPATION Last Admin: 05/26/19 08:13 Dose: 17 gm Vital Signs - 8 hr 05/27/19 05/27/19 11:35 15:13 Temperature 97.4 F 97 F Pulse Rate 66 64 Respiratory 16 12 Rate Blood Pressure 118/59 98/46 (mmHg) O2 Sat by Pulse 94 90 Oximetry Oxygen Devices in Use Now: None Appearance: Elderly, white female, laying in bed, appearing in NAD; somnolent at times Eyes: No Scleral Icterus, PERRLA Ears/Nose/Mouth/Throat: Mucous Membranes Moist Neck: - - neck supple Respiratory: Symmetrical Chest Expansion and Respiratory Effort Cardiovascular: NL Sounds; No Murmurs; No JVD, RRR Abdominal: - - abd soft, nontender, nondistended Extremities: No Edema, No Clubbing, Cyanosis Skin: No Rash or Ulcers Neurological: - - alerts to voice and touch; unable to assess orientation as patient is not interacting verbally, does not follow verbal commands Result Diagrams: 05/27/19 06:20 05/27/19 06:20 Additional Lab and Data: Above labs were pulled into the note, when note was edited prior to signing. See below for labs from the day of consultation. Laboratory Tests 05/14/19 05/16/19 05/16/19 03:06 11:48 11:48 WBC 13.1 H Hgb 10.7 L Hct 32 L Plt Count 191 Sodium 134 L Potassium 4.1 Chloride 107 Carbon Dioxide 20 L BUN 17 Creatinine 1.26 H Glucose 274 H Total Protein 7.7 Albumin 3.9 Microbiology and Other Data: Microbiology 05/14/19 02:31 Urine Culture - Preliminary Urine Pseudomonas Aeruginosa 05/14/19 03:23 Aerobic Blood Culture - Final Blood Venous Not Reportable Anaerobic Blood Culture - Final Not Reportable Blood Culture - Preliminary No Growth Day 1 05/14/19 03:06 Aerobic Blood Culture - Final Blood Venous Not Reportable Anaerobic Blood Culture - Final Not Reportable Blood Culture - Preliminary No Growth Day 1 Diagnostic Imaging: Patient Name: LISA AC Medical Record#: [id number] Ordering Physician: Emma Kearney MD Acct.#: [id number] : 1950 Age: 69 Sex: F Location: [address] [place] [address] MEDICAL/TELEMETRY Exam Date: 05/15/191451 ADM Status: ADM IN Order Information: CT ABD/PEL W/O Accession Number: [id number] CPT: 09301 CLINICAL HISTORY: eval for renal/ureteral stones COMPARISON: April 26, 2019 TECHNIQUE: Multiple contiguous axial CT scans were obtained of the abdomen and pelvis, without intravenous contrast enhancement. Coronal and sagittal multiplanar reformations are submitted for review. Oral contrast was not administered. FINDINGS: Evaluation is limited due to the lack of intravenous contrast. This limits evaluation of the solid organs and vasculature. LUNG BASES: The lung bases are clear. LIVER: The liver is normal in shape, size, contour, and attenuation. BILE DUCTS: There is no intrahepatic or extrahepatic biliary dilatation. GALLBLADDER: The gallbladder is not visualized. Surgical clips are noted in the gallbladder fossa. PANCREAS: The pancreas is normal, without mass or ductal dilatation. SPLEEN: Normal in size and appearance. UPPER GI TRACT: Evaluation of the gastrointestinal tract is limited by incomplete gastric distention. The upper GI tract is unremarkable. SMALL BOWEL AND MESENTERY: The small bowel is normal in contour, course, and caliber. There is no obstruction or dilatation. COLON: The colon is normal in contour, course, caliber. There is no pericolonic inflammatory change. ADRENALS: Normal bilaterally. KIDNEYS: There is a punctate calculus of the lower pole of the left kidney, stable. There is a left ureteral stent. There is no appreciable left ureteral calculus. There is mild pelvic caliectasis on the left. BLADDER: The bladder is collapsed around a Wise catheter. PELVIC ORGANS: The uterus is fibroid AORTA: There is calcific atherosclerotic disease of the abdominal aorta and its branches, without aneurysmal dilatation IVC: Unremarkable LYMPH NODES: There are multiple retroperitoneal lymph nodes. These are rounded and measure up to 1 cm in short axis. These are stable. ABDOMINAL WALL: There is no evidence for abdominal wall hernia. BONES AND SOFT TISSUES: Subcutaneous soft tissue calcifications are noted consistent with injection granulomas. OTHER: None MILD LEFT-SIDED HYDRONEPHROSIS. FIBROID UTERUS. ATHEROSCLEROSIS. Assess/Plan/Problems-Billing Assessment: Ms. Ac is a 69 yo F with PMH of neurogenic bladder who selfcaths, HTN, HLD, MS , DM2, and seizure disorder; who presented with hypotension altered mental status, found to have UTI. - Patient Problems (1) UTI (urinary tract infection) Current Visit: Yes Status: Acute Priority: High Comment: - Recent stent with Dr. Eaton with plan for removal on Wednesday05/29/19 - Urine culture growing Pseudomonas and yeast; repeat culture was without growth - Appreciate ID consult; recommends total of 2 weeks of treatment - Today is last day of Zosyn, will d/c - Continue fluconazole (day 07/13) - Patient has PICC in place - Continue wise (2) Acute encephalopathy Current Visit: Yes Status: Acute Code(s): G93.40 - ENCEPHALOPATHY, UNSPECIFIED SNOMED Code(s): 48728311 Comment: - Mental status waxing and waning. Patient is not at her baseline today as she normally is more interactive - Multifactorial: sepsis, progressive MS - Appreciate Neuro consult; recommends avoiding benzos and antipsychotics - Decrease neuro checks to q shift - Supportive care (3) Sacral decubitus ulcer, stage II Current Visit: No Status: Acute Code(s): L89.152 - PRESSURE ULCER OF SACRAL REGION, STAGE 2 SNOMED Code(s): 901154839 Comment: - Wound care recommendations noted - The size of the patient's wound is growing despite current wound care efforts , though depth appears to remain the same - Sheepskin to sacrum today and ordered OOB to chair BID (4) DM2 (diabetes mellitus, type 2) Current Visit: Yes Status: Chronic Priority: Medium Comment: - Blood glucose 100-200s - Hold glipizide and poiglitazone to avoid precipitating hypoglycemia and AMS - Continue Lispro SS (5) Nephrolithiasis Current Visit: Yes Status: Acute Code(s): N20.0 - CALCULUS OF KIDNEY SNOMED Code(s): 25793929 Comment: - Mild hydro on CT - Plan for stent removal with Dr. Eaton as above (6) Hyperlipidemia Current Visit: Yes Status: Acute Code(s): E78.5 - HYPERLIPIDEMIA, UNSPECIFIED SNOMED Code(s): 14085120 Comment: - Continue atorvastatin (7) Multiple sclerosis Current Visit: No Status: Chronic Priority: High Code(s): G35 - MULTIPLE SCLEROSIS SNOMED Code(s): 04761125 Comment: - Continue Baclofen and Tegretol (8) Neurogenic bladder Current Visit: No Status: Chronic Code(s): N31.9 - NEUROMUSCULAR DYSFUNCTION OF BLADDER, UNSPECIFIED SNOMED Code(s): 634926499 Comment: - Typically straight caths at home with assistance from - Wise while in the hospital; question if it would be better for her to go home with a Wise rather than straight cathing d/t recurrent infections - Will discuss with urology (9) Seizure disorder Current Visit: Yes Status: Acute Code(s): G40.909 - EPILEPSY, UNSP, NOT INTRACTABLE, WITHOUT STATUS EPILEPTICUS SNOMED Code(s): 632532587 Comment: - EEG unremarkable for seizure activity - Continue carbamazepine (10) DVT prophylaxis Current Visit: Yes Status: Acute Priority: Low Code(s): VSK1777 - SNOMED Code(s): 678794369 Comment: - Lovenox (11) Full code status Current Visit: Yes Status: Acute Code(s): Z78.9 - OTHER SPECIFIED HEALTH STATUS SNOMED Code(s): 285032509 Comment: Status and Disposition: Inpatient. Anticipate d/c home vs [facility] when medically stable and cleared by ID and urology, likely early next week.
[2019-05-27] MEDS: Enoxaparin(*) 40 MG/0.4 ML SYR SUBCUT SCH (17:47)
[2019-05-27] MEDS: Atorvastatin* 40 MG TAB PO SCH (20:35)
[2019-05-28] MEDS: Acetaminophen TAB* 325 MG PO PRN ×3 (00:58→17:56)
[2019-05-28] MEDS: Bisacodyl SUPP* 10 MG SUPP PR PRN ×2 (05:41→06:02)
[2019-05-28 06:35] LABS: ABS Eosinophils 0.2 10^3/ul (0-0.6); ABS Lymphocytes 2.3 10^3/ul (1.0-4.8); ABS Monocytes 0.8 10^3/ul (0-0.8); ABS Neutrophils 4.1 10^3/ul (1.5-7.7); Eosinophil % 2.5 %; Hematocrit 31 % (35-47); Hemoglobin 10.3 g/dL (12.0-16.0); Mean Corpuscular HGB Conc 34 g/dL (31-36); Mean Corpuscular Hemoglobin 30 pg (27-31); Mean Corpuscular Volume 89 fL (80-97); Mean Platelet Volume 8.4 fL (7.4-10.4); Platelet Count 293 10^3/uL (150-450); Red Blood Count 3.43 10^6 /uL (3.70-4.87); Red Cell Distribution Width 17 % (10-15); White Blood Count 7.4 10^3/uL (3.5-10.8)
[2019-05-28 06:53] LABS: BUN/Creatinine Ratio 24.7 (8-20); Calcium 9.2 mg/dL (8.6-10.3); EGFR African American 72.5 (>60)
[2019-05-28] MEDS: Oxybutynin TAB* 5 MG PO SCH ×2 (08:49→20:40)
[2019-05-28] MEDS: Insulin LISPRO* 1 UNITS UNIT SUBCUT SCH ×4 (08:49→20:52)
[2019-05-28] MEDS: carBAMazepine TAB(*) 200 MG PO SCH ×2 (08:49→20:39)
[2019-05-28] MEDS: Cholecalciferol TAB* 1000 UNITS PO SCH (08:50)
[2019-05-28] MEDS: Metoprolol Succinate XL TAB* 100 MG PO SCH (08:50)
[2019-05-28] MEDS: Baclofen TAB* 20 MG PO SCH ×4 (08:50→20:39)
[2019-05-28] MEDS: GENTAMICIN 0.1% TOPICAL SCH ×2 (10:07→20:48)
[2019-05-28] MEDS: Clotrimazole/Betamethasone CREAM* 15 GM TOPICAL SCH ×2 (10:07→20:48)
[2019-05-28] MEDS: Fluconazole 200 MG IVPREMIX(*) 200 MG/100 ML BAG IVPB SCH (11:16)
[2019-05-28] MEDS: Pantoprazole IV* 40 MG IV SCH (11:16)
[2019-05-28] MEDS: CMCS - Anastrozole (NF) 1 MG TAB PO SCH (12:06)
--- NOTE | 2019-05-28 13:38 | PN ---
Subjective Date of Service: 05/28/19 Interval History: Patient is still much more lethargic than her baseline per her . Patient states twice "well that will just mess up your life" without context. Patient shakes head and nods, but often changes her answers to the same question. Family History: Unchanged from Admission Social History: Unchanged from Admission Past Medical History: Unchanged from Admission Objective Active Medications: Acetaminophen (Tylenol Tab*) 650 mg PO Q4H PRN PRN Reason: PAIN Last Admin: 05/28/19 08:49 Dose: 650 mg Albuterol/Ipratropium (Duoneb (Albuterol 2.5 Mg/Ipratropium 0.5 Mg)) 1 neb INH Q2H PRN PRN Reason: SOB/WHEEZING Anastrozole (Arimidex (Nf)) 1 mg PO 1200 [facility] Last Admin: 05/28/19 12:06 Dose: 1 mg Atorvastatin Calcium (Lipitor*) 40 mg PO BEDTIME [facility] Last Admin: 05/27/19 20:35 Dose: 40 mg Baclofen (Lioresal Tab*) 20 mg PO QID [facility] Last Admin: 05/28/19 12:20 Dose: 20 mg Betamethasone/Clotrimazole (Lotrisone Cream*) 1 applic TOPICAL 2100 [facility] Last Admin: 05/28/19 10:07 Dose: 1 applic Bisacodyl (Dulcolax Supp*) 10 mg OK DAILY PRN PRN Reason: CONSTIPATION Last Admin: 05/28/19 05:41 Dose: 10 mg Carbamazepine (Tegretol Tab(*)) 200 mg PO BID [facility] Last Admin: 05/28/19 08:49 Dose: 200 mg Cholecalciferol (Vitamin D Tab*) 1,000 units PO DAILY [facility] Last Admin: 05/28/19 08:50 Dose: 1,000 units Dextrose (Dextrose 50% Vial 50 Ml*) 25 ml IV PUSH .FOR FS < 60 - SS PRN PRN Reason: FS < 60 Docusate Sodium (Colace Cap*) 100 mg PO BID PRN PRN Reason: CONSTIPATION Last Admin: 05/26/19 08:13 Dose: 100 mg Enoxaparin Sodium (Lovenox(*)) 40 mg SUBCUT Q24H [facility] Last Admin: 05/27/19 17:47 Dose: 40 mg Gentamicin Sulfate (Gentamicin 0.1% Ointment*) 1 applic TOPICAL 2100 [facility] Stop: 06/03/19 21:01 Last Admin: 05/28/19 10:07 Dose: 1 applic Heparin Sodium (Porcine) (Heparin Flush Picc/Ml/Cvc(*)) 1 - 3 ml FLUSH 0600, 1800 [facility]; Protocol Last Admin: 05/28/19 05:48 Dose: 1 ml Hydralazine HCl (Apresoline Iv*) 5 mg IV SLOW PU Q6H PRN PRN Reason: SYSTOLIC BP GREATER THAN: Last Admin: 05/20/19 04:04 Dose: 5 mg Fluconazole/Sodium Chloride (Diflucan 200 Mg Ivpremix(*)) 200 mg in 100 mls @ 100 mls/hr IVPB Q24H [facility] Last Admin: 05/28/19 11:16 Dose: 100 mls/hr Insulin Human Lispro (Humalog*) 0 units SUBCUT ACHS [facility]; Protocol Last Admin: 05/28/19 12:20 Dose: 2 units Metoprolol Succinate (Toprol Xl Tab*) 100 mg PO DAILY WITH MEAL [facility] Last Admin: 05/28/19 08:50 Dose: 100 mg Oxybutynin Chloride (Ditropan Tab*) 5 mg PO BID [facility] Last Admin: 05/28/19 08:49 Dose: 5 mg Pantoprazole Sodium (Protonix Iv*) 40 mg IV Q24H [facility] Last Admin: 05/28/19 11:16 Dose: 40 mg Polyethylene Glycol/Electrolytes (Miralax*) 17 gm PO DAILY PRN PRN Reason: CONSTIPATION Last Admin: 05/26/19 08:13 Dose: 17 gm Vital Signs - 8 hr 05/28/19 05/28/19 05/28/19 07:30 08:00 11:00 Temperature 98.2 F 97.7 F Pulse Rate 78 74 Respiratory 18 18 18 Rate Blood Pressure 149/91 155/92 (mmHg) O2 Sat by Pulse 95 93 Oximetry Oxygen Devices in Use Now: None Appearance: Patient is a 69yo female who appears stated age and is sitting in the bed in NAD. Eyes: No Scleral Icterus, PERRLA Ears/Nose/Mouth/Throat: NL Teeth, Lips, Gums, Clear Oropharnyx, Mucous Membranes Moist Neck: NL Appearance and Movements; NL JVP, Trachea Midline Respiratory: Symmetrical Chest Expansion and Respiratory Effort, Clear to Auscultation Cardiovascular: NL Sounds; No Murmurs; No JVD, RRR, No Edema Abdominal: NL Sounds; No Tenderness; No Distention, No Hepatosplenomegaly Lymphatic: No Cervical Adenopathy Extremities: No Edema, No Clubbing, Cyanosis Skin: No Rash or Ulcers, No Nodules or Sclerosis Neurological: - - Oriented only to self. Spastic Result Diagrams: 05/28/19 06:00 05/28/19 06:00 Additional Lab and Data: Above labs were pulled into the note, when note was edited prior to signing. See below for labs from the day of consultation. Laboratory Tests Microbiology and Other Data: Microbiology 05/14/19 02:31 Urine Culture - Preliminary Urine Pseudomonas Aeruginosa 05/14/19 03:23 Aerobic Blood Culture - Final Blood Venous Not Reportable Anaerobic Blood Culture - Final Not Reportable Blood Culture - Preliminary No Growth Day 1 05/14/19 03:06 Aerobic Blood Culture - Final Blood Venous Not Reportable Anaerobic Blood Culture - Final Not Reportable Blood Culture - Preliminary No Growth Day 1 Diagnostic Imaging: Patient Name: LISA AC Medical Record#: [id number] Ordering Physician: Emma Kearney MD Acct.#: [id number] : 1950 Age: 69 Sex: F Location: [address] [place] [address] MEDICAL/TELEMETRY Exam Date: 05/15/191451 ADM Status: ADM IN Order Information: CT ABD/PEL W/O Accession Number: [id number] CPT: 38162 CLINICAL HISTORY: eval for renal/ureteral stones COMPARISON: April 26, 2019 TECHNIQUE: Multiple contiguous axial CT scans were obtained of the abdomen and pelvis, without intravenous contrast enhancement. Coronal and sagittal multiplanar reformations are submitted for review. Oral contrast was not administered. FINDINGS: Evaluation is limited due to the lack of intravenous contrast. This limits evaluation of the solid organs and vasculature. LUNG BASES: The lung bases are clear. LIVER: The liver is normal in shape, size, contour, and attenuation. BILE DUCTS: There is no intrahepatic or extrahepatic biliary dilatation. GALLBLADDER: The gallbladder is not visualized. Surgical clips are noted in the gallbladder fossa. PANCREAS: The pancreas is normal, without mass or ductal dilatation. SPLEEN: Normal in size and appearance. UPPER GI TRACT: Evaluation of the gastrointestinal tract is limited by incomplete gastric distention. The upper GI tract is unremarkable. SMALL BOWEL AND MESENTERY: The small bowel is normal in contour, course, and caliber. There is no obstruction or dilatation. COLON: The colon is normal in contour, course, caliber. There is no pericolonic inflammatory change. ADRENALS: Normal bilaterally. KIDNEYS: There is a punctate calculus of the lower pole of the left kidney, stable. There is a left ureteral stent. There is no appreciable left ureteral calculus. There is mild pelvic caliectasis on the left. BLADDER: The bladder is collapsed around a Wise catheter. PELVIC ORGANS: The uterus is fibroid AORTA: There is calcific atherosclerotic disease of the abdominal aorta and its branches, without aneurysmal dilatation IVC: Unremarkable LYMPH NODES: There are multiple retroperitoneal lymph nodes. These are rounded and measure up to 1 cm in short axis. These are stable. ABDOMINAL WALL: There is no evidence for abdominal wall hernia. BONES AND SOFT TISSUES: Subcutaneous soft tissue calcifications are noted consistent with injection granulomas. OTHER: None MILD LEFT-SIDED HYDRONEPHROSIS. FIBROID UTERUS. ATHEROSCLEROSIS. Assess/Plan/Problems-Billing Assessment: Ms. Ac is a 69 yo F with PMH of neurogenic bladder who selfcaths, HTN, HLD, MS , DM2, and seizure disorder; who presented with hypotension altered mental status, found to have UTI and is slowly improving on antibiotics and antifungals. - Patient Problems (1) UTI (urinary tract infection) Current Visit: Yes Status: Acute Priority: High Comment: - Recent stent with Dr. Eaton with plan for removal on Wednesday05/29/19 - Urine culture growing Pseudomonas and yeast; repeat culture was without growth - Appreciate ID consult; recommends total of 2 weeks of treatment - Completed Zosyn - Continue fluconazole (day 08/12) - Patient has PICC in place - Continue wise (2) Acute encephalopathy Current Visit: Yes Status: Acute Code(s): G93.40 - ENCEPHALOPATHY, UNSPECIFIED SNOMED Code(s): 78414379 Comment: - Mental status waxing and waning. Patient is not at her baseline today as she normally is more interactive - Multifactorial: sepsis, progressive MS - Appreciate Neuro consult; recommends avoiding benzos and antipsychotics - Decrease neuro checks to q shift - Supportive care (3) Multiple sclerosis Current Visit: Yes Status: Acute Code(s): G35 - MULTIPLE SCLEROSIS SNOMED Code(s): 84145744 Comment: - Progressive MS with decline - Appreciate Neuro consult - Supportive care (4) Neurogenic bladder Current Visit: No Status: Chronic Code(s): N31.9 - NEUROMUSCULAR DYSFUNCTION OF BLADDER, UNSPECIFIED SNOMED Code(s): 126403941 Comment: - Typically straight caths at home with assistance from - Wise while in the hospital; question if it would be better for her to go home with a Wise rather than straight cathing d/t recurrent infections - Will discuss with urology after stent replacement. (5) Hyperlipidemia Current Visit: Yes Status: Acute Code(s): E78.5 - HYPERLIPIDEMIA, UNSPECIFIED SNOMED Code(s): 42018153 Comment: - Continue atorvastatin (6) Seizure disorder Current Visit: Yes Status: Acute Code(s): G40.909 - EPILEPSY, UNSP, NOT INTRACTABLE, WITHOUT STATUS EPILEPTICUS SNOMED Code(s): 101861557 Comment: - EEG unremarkable for seizure activity - Continue carbamazepine, check level in AM. (7) DM2 (diabetes mellitus, type 2) Current Visit: Yes Status: Chronic Priority: Medium Comment: - Blood glucose 100-200s - Hold glipizide and pioglitazone to avoid precipitating hypoglycemia and AMS - Continue Lispro SS (8) HTN (hypertension) Current Visit: Yes Status: Chronic Priority: Medium Code(s): I10 - ESSENTIAL (PRIMARY) HYPERTENSION SNOMED Code(s): 55556993 Comment: - Normotensive with some soft pressures - Continue metoprolol (9) DVT prophylaxis Current Visit: Yes Status: Acute Priority: Low Code(s): [id number] - SNOMED Code(s): 731917714 Comment: - Lovenox (10) Full code status Current Visit: Yes Status: Acute Code(s): Z78.9 - OTHER SPECIFIED HEALTH STATUS SNOMED Code(s): 014897430 Comment: Status and Disposition: Inpatient. Anticipate d/c home vs [facility] when medically stable and cleared by ID and urology, likely early next week.
[2019-05-28] MEDS: Enoxaparin(*) 40 MG/0.4 ML SYR SUBCUT SCH (16:26)
[2019-05-28] MEDS: Atorvastatin* 40 MG TAB PO SCH (20:39)
[2019-05-29] MEDS: Acetaminophen TAB* 325 MG PO PRN ×3 (02:22→23:13)
[2019-05-29 06:30] LABS: ABS Eosinophils 0.2 10^3/ul (0-0.6); ABS Lymphocytes 2.5 10^3/ul (1.0-4.8); ABS Monocytes 0.7 10^3/ul (0-0.8); ABS Neutrophils 4.8 10^3/ul (1.5-7.7); Eosinophil % 2.3 %; Hematocrit 31 % (35-47); Hemoglobin 10.4 g/dL (12.0-16.0); Lymphocyte % 30.6 %; Mean Corpuscular HGB Conc 34 g/dL (31-36); Mean Corpuscular Hemoglobin 30 pg (27-31); Mean Corpuscular Volume 89 fL (80-97); Mean Platelet Volume 8.6 fL (7.4-10.4); Platelet Count 280 10^3/uL (150-450); Red Blood Count 3.45 10^6 /uL (3.70-4.87); Red Cell Distribution Width 17 % (10-15); White Blood Count 8.2 10^3/uL (3.5-10.8)
[2019-05-29 06:41] LABS: BUN/Creatinine Ratio 25.8 (8-20); Calcium 9.3 mg/dL (8.6-10.3); EGFR African American 76.3 (>60); EGFR Non-African American 63.1 (>60); Magnesium 1.6 mg/dL (1.9-2.7); Potassium 4.1 mmol/L (3.5-5.0)
[2019-05-29 07:03] LABS: Carbamazepine 5.8 mcg/mL (4.0-12.0)
[2019-05-29] MEDS ORDERED: Magnesium Sulfate 2 GM IV* 2 GM/50 ML BAG IVPB ONE (07:03)
[2019-05-29] MEDS: Insulin LISPRO* 1 UNITS UNIT SUBCUT SCH ×4 (07:40→21:50)
[2019-05-29] MEDS: Fluconazole 200 MG IVPREMIX(*) 200 MG/100 ML BAG IVPB SCH (09:03)
[2019-05-29] MEDS: Baclofen TAB* 20 MG PO SCH ×4 (09:44→21:33)
[2019-05-29] MEDS: Pantoprazole IV* 40 MG IV SCH (10:10)
[2019-05-29] MEDS: Cholecalciferol TAB* 1000 UNITS PO SCH (10:35)
[2019-05-29] MEDS: Oxybutynin TAB* 5 MG PO SCH ×2 (10:35→21:33)
[2019-05-29] MEDS: carBAMazepine TAB(*) 200 MG PO SCH ×2 (10:35→21:33)
[2019-05-29] MEDS: Metoprolol Succinate XL TAB* 100 MG PO SCH (10:35)
[2019-05-29] MEDS ORDERED: Iohexol 180 (CONTRAST) 10 ML SDV IV ONE (11:51)
[2019-05-29] MEDS ORDERED: fentaNYL* 50 MCG/ML 2 ML VIAL (100 MCG VIAL) ONE (11:54)
[2019-05-29] MEDS ORDERED: Lidocaine 2% PF * 5 ML VIAL ONE (11:54)
[2019-05-29] MEDS ORDERED: Propofol* 10 MG/ML 20 ML BTL ONE (11:54)
[2019-05-29] MEDS ORDERED: EPHEDrine (Pressors)* 50 MG/ML VIAL ONE (12:05)
[2019-05-29] MEDS: CMCS - Anastrozole (NF) 1 MG TAB PO SCH (12:31)
[2019-05-29] MEDS ORDERED: Naloxone* 0.4 MG/ML 1 ML VIAL IV PRN (13:52)
--- NOTE | 2019-05-29 15:42 | PN ---
Subjective Date of Service: 05/29/19 Interval History: Patient is much more alert today. Patient complains of pain around her decubitus ulcer. Patient denies CP, SOB, F/C, N/V, abdominal pain, diarrhea, or other pain. Patient still making some non-sensical statements. Family History: Unchanged from Admission Social History: Unchanged from Admission Past Medical History: Unchanged from Admission Objective Active Medications: Acetaminophen (Tylenol Tab*) 650 mg PO Q4H PRN PRN Reason: PAIN Last Admin: 05/29/19 02:22 Dose: 650 mg Albuterol/Ipratropium (Duoneb (Albuterol 2.5 Mg/Ipratropium 0.5 Mg)) 1 neb INH Q2H PRN PRN Reason: SOB/WHEEZING Anastrozole (Arimidex (Nf)) 1 mg PO 1200 [facility] Last Admin: 05/29/19 12:31 Dose: Not Given Atorvastatin Calcium (Lipitor*) 40 mg PO BEDTIME [facility] Last Admin: 05/28/19 20:39 Dose: 40 mg Baclofen (Lioresal Tab*) 20 mg PO QID [facility] Last Admin: 05/29/19 12:31 Dose: Not Given Betamethasone/Clotrimazole (Lotrisone Cream*) 1 applic TOPICAL 2100 [facility] Last Admin: 05/28/19 20:48 Dose: Not Given Bisacodyl (Dulcolax Supp*) 10 mg IN DAILY PRN PRN Reason: CONSTIPATION Last Admin: 05/28/19 05:41 Dose: 10 mg Carbamazepine (Tegretol Tab(*)) 200 mg PO BID [facility] Last Admin: 05/29/19 10:35 Dose: Not Given Cholecalciferol (Vitamin D Tab*) 1,000 units PO DAILY [facility] Last Admin: 05/29/19 10:35 Dose: Not Given Dextrose (Dextrose 50% Vial 50 Ml*) 25 ml IV PUSH .FOR FS < 60 - SS PRN PRN Reason: FS < 60 Docusate Sodium (Colace Cap*) 100 mg PO BID PRN PRN Reason: CONSTIPATION Last Admin: 05/26/19 08:13 Dose: 100 mg Enoxaparin Sodium (Lovenox(*)) 40 mg SUBCUT Q24H [facility] Last Admin: 05/28/19 16:26 Dose: 40 mg Gentamicin Sulfate (Gentamicin 0.1% Ointment*) 1 applic TOPICAL 2100 [facility] Stop: 06/03/19 21:01 Last Admin: 05/28/19 20:48 Dose: Not Given Heparin Sodium (Porcine) (Heparin Flush Picc/Ml/Cvc(*)) 1 - 3 ml FLUSH 0600, 1800 [facility]; Protocol Last Admin: 05/29/19 05:54 Dose: 1 ml Hydralazine HCl (Apresoline Iv*) 5 mg IV SLOW PU Q6H PRN PRN Reason: SYSTOLIC BP GREATER THAN: Last Admin: 05/20/19 04:04 Dose: 5 mg Fluconazole/Sodium Chloride (Diflucan 200 Mg Ivpremix(*)) 200 mg in 100 mls @ 100 mls/hr IVPB Q24H [facility] Last Admin: 05/29/19 09:03 Dose: 100 mls/hr Insulin Human Lispro (Humalog*) 0 units SUBCUT ACHS [facility]; Protocol Last Admin: 05/29/19 12:31 Dose: Not Given Metoprolol Succinate (Toprol Xl Tab*) 100 mg PO DAILY WITH MEAL [facility] Last Admin: 05/29/19 10:35 Dose: Not Given Oxybutynin Chloride (Ditropan Tab*) 5 mg PO BID [facility] Last Admin: 05/29/19 10:35 Dose: Not Given Pantoprazole Sodium (Protonix Iv*) 40 mg IV Q24H [facility] Last Admin: 05/29/19 10:10 Dose: 40 mg Polyethylene Glycol/Electrolytes (Miralax*) 17 gm PO DAILY PRN PRN Reason: CONSTIPATION Last Admin: 05/26/19 08:13 Dose: 17 gm Vital Signs - 8 hr 05/29/19 05/29/19 05/29/19 11:00 12:25 13:22 Temperature 99.5 F 97.2 F 96.8 F Pulse Rate 72 74 Respiratory 24 14 16 Rate Blood Pressure 142/83 141/74 (mmHg) O2 Sat by Pulse 95 100 Oximetry Oxygen Devices in Use Now: None Appearance: Patient is a 69yo female who appears stated age and is sitting in the bed in NAD. Eyes: No Scleral Icterus, PERRLA Ears/Nose/Mouth/Throat: NL Teeth, Lips, Gums, Clear Oropharnyx, Mucous Membranes Moist Neck: NL Appearance and Movements; NL JVP, Trachea Midline Respiratory: Symmetrical Chest Expansion and Respiratory Effort, Clear to Auscultation Cardiovascular: NL Sounds; No Murmurs; No JVD, RRR, No Edema Abdominal: NL Sounds; No Tenderness; No Distention, No Hepatosplenomegaly Lymphatic: No Cervical Adenopathy Extremities: No Clubbing, Cyanosis Skin: No Nodules or Sclerosis, - - Large Decubitus Ulcer on sacrum not visualized today. Neurological: - - Alert and oriented only to self. Result Diagrams: 05/29/19 06:00 05/29/19 06:00 Additional Lab and Data: Above labs were pulled into the note when edited prior to signing, please see labs from day of consultation below. Laboratory Tests Microbiology and Other Data: Microbiology 05/14/19 02:31 Urine Culture - Preliminary Urine Pseudomonas Aeruginosa 05/14/19 03:23 Aerobic Blood Culture - Final Blood Venous Not Reportable Anaerobic Blood Culture - Final Not Reportable Blood Culture - Preliminary No Growth Day 1 05/14/19 03:06 Aerobic Blood Culture - Final Blood Venous Not Reportable Anaerobic Blood Culture - Final Not Reportable Blood Culture - Preliminary No Growth Day 1 Diagnostic Imaging: Patient Name: LISA AC Medical Record#: [id number] Ordering Physician: Emma Kearney MD Acct.#: [id number] : 1950 Age: 69 Sex: F Location: [address] [place] [address] MEDICAL/TELEMETRY Exam Date: 05/15/191451 ADM Status: ADM IN Order Information: CT ABD/PEL W/O Accession Number: [id number] CPT: 85248 CLINICAL HISTORY: eval for renal/ureteral stones COMPARISON: April 26, 2019 TECHNIQUE: Multiple contiguous axial CT scans were obtained of the abdomen and pelvis, without intravenous contrast enhancement. Coronal and sagittal multiplanar reformations are submitted for review. Oral contrast was not administered. FINDINGS: Evaluation is limited due to the lack of intravenous contrast. This limits evaluation of the solid organs and vasculature. LUNG BASES: The lung bases are clear. LIVER: The liver is normal in shape, size, contour, and attenuation. BILE DUCTS: There is no intrahepatic or extrahepatic biliary dilatation. GALLBLADDER: The gallbladder is not visualized. Surgical clips are noted in the gallbladder fossa. PANCREAS: The pancreas is normal, without mass or ductal dilatation. SPLEEN: Normal in size and appearance. UPPER GI TRACT: Evaluation of the gastrointestinal tract is limited by incomplete gastric distention. The upper GI tract is unremarkable. SMALL BOWEL AND MESENTERY: The small bowel is normal in contour, course, and caliber. There is no obstruction or dilatation. COLON: The colon is normal in contour, course, caliber. There is no pericolonic inflammatory change. ADRENALS: Normal bilaterally. KIDNEYS: There is a punctate calculus of the lower pole of the left kidney, stable. There is a left ureteral stent. There is no appreciable left ureteral calculus. There is mild pelvic caliectasis on the left. BLADDER: The bladder is collapsed around a Wise catheter. PELVIC ORGANS: The uterus is fibroid AORTA: There is calcific atherosclerotic disease of the abdominal aorta and its branches, without aneurysmal dilatation IVC: Unremarkable LYMPH NODES: There are multiple retroperitoneal lymph nodes. These are rounded and measure up to 1 cm in short axis. These are stable. ABDOMINAL WALL: There is no evidence for abdominal wall hernia. BONES AND SOFT TISSUES: Subcutaneous soft tissue calcifications are noted consistent with injection granulomas. OTHER: None MILD LEFT-SIDED HYDRONEPHROSIS. FIBROID UTERUS. ATHEROSCLEROSIS. Assess/Plan/Problems-Billing Assessment: Ms. Ac is a 69 yo F with PMH of neurogenic bladder who selfcaths, HTN, HLD, MS , DM2, and seizure disorder; who presented with hypotension altered mental status, found to have UTI and is slowly improving on antibiotics and antifungals. - Patient Problems (1) UTI (urinary tract infection) Current Visit: Yes Status: Acute Priority: High Comment: - Recent stent with Dr. Eaton, removal today - Urine culture growing Pseudomonas and yeast; repeat culture was without growth - Appreciate ID consult; recommends total of 2 weeks of treatment - Completed Zosyn - Continue fluconazole (day 13/14) - Patient has PICC in place - Continue wise, Urology recommends continuing intermittent cath with at D/C. (2) Acute encephalopathy Current Visit: Yes Status: Acute Code(s): G93.40 - ENCEPHALOPATHY, UNSPECIFIED SNOMED Code(s): 09263224 Comment: - Mental status waxing and waning. Patient close to baseline tody - Multifactorial: sepsis, progressive MS and hospitalization. - Appreciate Neuro consult; recommends avoiding benzos and antipsychotics - Decrease neuro checks to q shift - Supportive care (3) Multiple sclerosis Current Visit: Yes Status: Acute Code(s): G35 - MULTIPLE SCLEROSIS SNOMED Code(s): 08271216 Comment: - Progressive MS with decline - Appreciate Neuro consult - Supportive care (4) Neurogenic bladder Current Visit: No Status: Chronic Code(s): N31.9 - NEUROMUSCULAR DYSFUNCTION OF BLADDER, UNSPECIFIED SNOMED Code(s): 614565238 Comment: - Typically straight caths at home with assistance from - Wise while in the hospital, Intermittent cath at D/C Per Urology. - F/U outpatient urology. (5) Hyperlipidemia Current Visit: Yes Status: Acute Code(s): E78.5 - HYPERLIPIDEMIA, UNSPECIFIED SNOMED Code(s): 61970130 Comment: - Continue atorvastatin (6) Seizure disorder Current Visit: Yes Status: Acute Code(s): G40.909 - EPILEPSY, UNSP, NOT INTRACTABLE, WITHOUT STATUS EPILEPTICUS SNOMED Code(s): 140408116 Comment: - EEG unremarkable for seizure activity - Continue carbamazepine, stable therapeutic level. (7) DM2 (diabetes mellitus, type 2) Current Visit: Yes Status: Chronic Priority: Medium Comment: - Blood glucose 100-200s - Hold glipizide and pioglitazone to avoid precipitating hypoglycemia and AMS - Continue Lispro SS (8) HTN (hypertension) Current Visit: Yes Status: Chronic Priority: Medium Code(s): I10 - ESSENTIAL (PRIMARY) HYPERTENSION SNOMED Code(s): 40359398 Comment: - Normotensive - Continue metoprolol (9) Sacral decubitus ulcer, stage II Current Visit: No Status: Acute Code(s): L89.152 - PRESSURE ULCER OF SACRAL REGION, STAGE 2 SNOMED Code(s): 000886160 Comment: - Wound care recommendations appreciated - Sheepskin to sacrum today and ordered OOB to chair BID - T/P and aggressive pressure reduction. (10) Full code status Current Visit: Yes Status: Acute Code(s): Z78.9 - OTHER SPECIFIED HEALTH STATUS SNOMED Code(s): 413241800 Comment: (11) DVT prophylaxis Current Visit: Yes Status: Acute Priority: Low Code(s): HDZ8093 - SNOMED Code(s): 471090937 Comment: - Lovenox Status and Disposition: Inpatient. Anticipate d/c home vs [facility] in next couple days.
[2019-05-29] MEDS: Clotrimazole/Betamethasone CREAM* 15 GM TOPICAL SCH ×2 (16:11→22:33)
[2019-05-29] MEDS: GENTAMICIN 0.1% TOPICAL SCH ×2 (16:11→22:33)
[2019-05-29] MEDS: Enoxaparin(*) 40 MG/0.4 ML SYR SUBCUT SCH (16:17)
[2019-05-29] MEDS: Atorvastatin* 40 MG TAB PO SCH (21:33)
--- NOTE | 2019-05-29 23:03 | OP ---
DATE OF OPERATION: 05/29/19 - ROOM #[id number] DATE OF : 52 SURGEON: Ludin Eaton MD. ANESTHESIOLOGIST: Dr. Koehler. ANESTHESIA: Intravenous sedation. PRE-OP DIAGNOSIS: History of left renal and ureteral calculi. POST-OP DIAGNOSIS: History of left renal and ureteral calculi. OPERATIVE PROCEDURE: Cystoscopy and left stent removal. COMPLICATIONS: None. SPECIMENS: None. POSTOPERATIVE CONDITION: Stable. OPERATIVE FINDINGS: Cloudy urine and left ureteral stent removed intact without difficulty. INDICATIONS: Lucretia Em is a 69-year-old lady with neurogenic bladder, which has been managed with intermittent catheterization at home by her . She has now been admitted for another urinary tract infection and currently has an indwelling Mcwilliams. She is now being brought in for stent removal while in the hospital on intravenous antibiotics. DESCRIPTION OF PROCEDURE: After administration of intravenous sedation, cystoscopy was performed. Some cloudy residual urine was noted in the bladder. The stent was noted and was removed intact without difficulty. The bladder was irrigated out and a new 16-Greek Mcwilliams (similar to what she had preoperatively) was placed without difficulty. The patient tolerated the procedure satisfactorily and was transferred back to the recovery area in stable condition. [id number]/[facility] #: [id number] [facility]
[2019-05-30 06:43] LABS: ABS Eosinophils 0.2 10^3/ul (0-0.6); ABS Lymphocytes 2.4 10^3/ul (1.0-4.8); ABS Monocytes 0.6 10^3/ul (0-0.8); ABS Neutrophils 3.4 10^3/ul (1.5-7.7); Hematocrit 31 % (35-47); Hemoglobin 10.7 g/dL (12.0-16.0); Lymphocyte % 35.8 %; Mean Corpuscular HGB Conc 34 g/dL (31-36); Mean Corpuscular Hemoglobin 30 pg (27-31); Mean Corpuscular Volume 89 fL (80-97); Mean Platelet Volume 8.4 fL (7.4-10.4); Platelet Count 262 10^3/uL (150-450); Red Blood Count 3.53 10^6 /uL (3.70-4.87); Red Cell Distribution Width 17 % (10-15); White Blood Count 6.6 10^3/uL (3.5-10.8)
[2019-05-30 06:57] LABS: Calcium 9.3 mg/dL (8.6-10.3); EGFR African American 86.3 (>60); EGFR Non-African American 71.3 (>60); Magnesium 1.8 mg/dL (1.9-2.7)
[2019-05-30] MEDS: Insulin LISPRO* 1 UNITS UNIT SUBCUT SCH ×3 (09:01→17:08)
[2019-05-30] MEDS: Fluconazole 200 MG IVPREMIX(*) 200 MG/100 ML BAG IVPB SCH (09:04)
[2019-05-30] MEDS: Cholecalciferol TAB* 1000 UNITS PO SCH (09:16)
[2019-05-30] MEDS: Metoprolol Succinate XL TAB* 100 MG PO SCH (09:16)
[2019-05-30] MEDS: Oxybutynin TAB* 5 MG PO SCH (09:17)
[2019-05-30] MEDS: Baclofen TAB* 20 MG PO SCH ×3 (09:17→17:08)
[2019-05-30] MEDS: carBAMazepine TAB(*) 200 MG PO SCH (09:18)
[2019-05-30] MEDS: Acetaminophen TAB* 325 MG PO PRN (09:25)
[2019-05-30] MEDS: CMCS - Anastrozole (NF) 1 MG TAB PO SCH (12:24)
[2019-05-30] MEDS: Pantoprazole IV* 40 MG IV SCH (12:25)
[2019-05-30 15:49] VITALS: BP 118/76
--- NOTE | 2019-05-30 16:29 | PN ---
Subjective Date of Service: 05/30/19 Interval History: Ms. Em is a 68 yo female with PMH significant for DM2, breast CA, MS with neurogenic bladder, recurrent UTI, and stage 2 pressure injury to her buttocks; who presented to the emergency room for altered mental status. She was found to have a UTI. She presented to the hospital with a stage 2 pressure injury to her bilateral buttocks. Wound has been present for many months, unclear exactly how long as Rena is unable to give details. The wound mostly heals and then opens up. Using a combination of gentamycin ointment and clotrimazole cream, followed by calcium alginate, and dry dressing and hypafix tape to her pressure injury at home. Patient seen and examined at bedside. Family History: Unchanged from Admission Social History: Unchanged from Admission Past Medical History: Unchanged from Admission Objective Active Medications: Acetaminophen (Tylenol Tab*) 650 mg PO Q4H PRN Reason: PAIN Albuterol/Ipratropium (Duoneb (Albuterol 2.5 Mg/Ipratropium 0.5 Mg)) 1 neb INH Q2H PRN Reason: SOB/WHEEZING Anastrozole (Arimidex (Nf)) 1 mg PO 1200 [facility] Atorvastatin Calcium (Lipitor*) 40 mg PO BEDTIME [facility] Baclofen (Lioresal Tab*) 20 mg PO QID [facility] Betamethasone/Clotrimazole (Lotrisone Cream*) 1 applic TOPICAL 2100 [facility] Bisacodyl (Dulcolax Supp*) 10 mg NC DAILY PRN Reason: CONSTIPATION Carbamazepine (Tegretol Tab(*)) 200 mg PO BID [facility] Cholecalciferol (Vitamin D Tab*) 1,000 units PO DAILY [facility] Dextrose (Dextrose 50% Vial 50 Ml*) 25 ml IV PUSH PRN FOR FS < 60 Docusate Sodium (Colace Cap*) 100 mg PO BID PRN Reason: CONSTIPATION Enoxaparin Sodium (Lovenox(*)) 40 mg SUBCUT Q24H [facility] Gentamicin Sulfate (Gentamicin 0.1% Ointment*) 1 applic TOPICAL 2100 [facility] Heparin Sodium (Porcine) (Heparin Flush Picc/Ml/Cvc(*)) 1 - 3 ml FLUSH 0600, 1800 [facility]; Protocol Hydralazine HCl (Apresoline Iv*) 5 mg IV SLOW PU Q6H PRN Reason: SYSTOLIC BP GREATER THAN: Fluconazole/Sodium Chloride (Diflucan 200 Mg Ivpremix(*)) 200 mg in 100 mls @ 100 mls/hr IVPB Q24H [facility] Insulin Human Lispro (Humalog*) 0 units SUBCUT ACHS [facility]; Protocol Metoprolol Succinate (Toprol Xl Tab*) 100 mg PO DAILY WITH MEAL [facility] Oxybutynin Chloride (Ditropan Tab*) 5 mg PO BID [facility] Pantoprazole Sodium (Protonix Iv*) 40 mg IV Q24H [facility] Polyethylene Glycol/Electrolytes (Miralax*) 17 gm PO DAILY PRN Reason: CONSTIPATION Vital Signs - 8 hr 05/30/19 05/30/19 11:08 15:15 Temperature 97.6 F 97.2 F Pulse Rate 85 76 Respiratory 16 18 Rate Blood Pressure 145/83 118/76 (mmHg) O2 Sat by Pulse 94 95 Oximetry Oxygen Devices in Use Now: None Appearance: NAD, sitting up in a chair Ears/Nose/Mouth/Throat: Mucous Membranes Moist Respiratory: Symmetrical Chest Expansion and Respiratory Effort Skin: - - See skin note below Neurological: - - Alert and Oriented to person Result Diagrams: 05/30/19 06:25 05/30/19 06:25 Skin Deviation Note - Skin Deviation Findings Sacrum/Buttocks -There are wounds to bilateral buttocks. The left side measures 5 cm x 4.5 cm x 0.1 cm. There is red granulation tissue in the wound base with serosang drainage, the periwound with slightly blanchable erythema. The right side measures 1.5 cm x 1.5 cm x 0.1 cm, the wound base is red granulation tissue. Below this area, is an area of scar tissue that was previously open and is now closed. The periwound with erythema that is slightly blanchable. The area surrounding is intact without erythema. Wound Problem/Plan Assessment: Ms. Em is a 68 yo female with PMH significant for DM2, breast CA, MS with neurogenic bladder, recurrent UTI, and stage 2 pressure injury to her buttocks; who presented to the emergency room for altered mental status. She presented to the hospital with a stage 2 pressure injury to her bilateral buttocks. 1. Pressure injury, stage 2 to bilateral buttocks/sacrum. Suspect there is also a component of shearing injury, as the scar tissue on the left buttock has debrided since last week. Prealbumin in 03/2019. Recommend applying a small amount of Gentamycin ointment mixed with clotrimazole cream to the open wounds, followed by calcium alginate and an ABD pad folded in half. Use Hypafix tape only, do not tape all the way around the dressing. Change dressing every other day or as needed for soiling. Incontinence care as needed. Do not use blue brief to allow air flow to the area. Frequent turning and repositioning. Use lifting devices to move in bed. Refer back to the wound clinic at discharge. 2. MS with neurogenic bladder and recurrent UTIs. 3. Diabetes Mellitus, type 2. Maintain good glycemic control to help with wound healing. 4. Diet. Consistent Carbohydrate diet. 5. Code Status. Full Code Status. 6. Disposition. Inpatient, disposition per primary medicine team. Is Patient a Wound Clinic Patient: Yes - Dr. Dunne Current Treatment: Combination of gentamycin ointment and clotrimazole cream, followed by calcium alginate, and dry dressing and hypafix tape. Counseling and/or Coordination of Care Minutes: 25 Points of Discussion: Time for this wound consultation was 25 minutes and 15 minutes was spent with the patient and discussing wound care; removing the old dressing; assessing, measuring, and photographing the wounds; and reapplying a dressing. Attending: Tamar Ramsey
[2019-05-30] MEDS: Enoxaparin(*) 40 MG/0.4 ML SYR SUBCUT SCH (17:02)
--- NOTE | 2019-05-31 03:11 | DS ---
CC: Dr. Arcenio Olivares; Dr. Juan Brewer; Netta Graff, TIANA; Dr. Ludin Eaton; Dr. Hannah Dudley * DISCHARGE SUMMARY: DATE OF ADMISSION: 05/14/19 DATE OF DISCHARGE: 05/30/19 PRIMARY CARE PHYSICIAN: Arcenio Olivares MD. PRIMARY DIAGNOSES: 1. Urinary tract infection, complicated by sepsis. 2. Acute encephalopathy. 3. Multiple sclerosis. 4. Decubitus ulcer. SECONDARY DIAGNOSES: 1. Multiple sclerosis. 2. Hypertension. 3. Diabetes. 4. Neurogenic bladder. CONSULTS: 1. Dr. Juan Brewer, ID. 2. Netta Graff NP., Wound Care. 3. Dr. Ludin Eaton, Urology. 4. Dr. Hannah Dudley, Neurology. PROCEDURES: Cystoscopy and left stent removal on 05/29/19. DISCHARGE MEDICATIONS: 1. Metoprolol 100 mg daily. 2. [place] 5/325 every 6 hours as needed for pain. 3. Atorvastatin 40 mg at bedtime. 4. Anastrozole 1 mg daily. 5. Carbamazepine 200 mg twice a day. 6. Glipizide 10 mg twice a day. 7. Oxybutynin 5 mg twice a day. 8. Lotrisone cream daily topically. 9. Baclofen 20 mg 4 times a day. 10. MiraLAX 17 g daily as needed for constipation. 11. Gentamicin 0.1% topically daily. 12. Multivitamin daily. 13. Vitamin D 1000 units daily. HISTORY OF PRESENT ILLNESS: Ms. Em is a 69-year-old woman with severe MS and diabetes mellitus, hypertension, neurogenic bladder, decubitus ulcer, seizure disorder, who was brought to the emergency room as her noticed that she was more confused, lethargic, and disoriented. She has a history of UTI with sepsis, with frequent hospitalizations, last of which was 3 weeks prior to this presentation. HOSPITAL COURSE: In the emergency room the patient was found to have hypotension and positive urinalysis, so she was admitted for UTI with sepsis. Her blood pressures responded to 3 L of normal saline and she was initiated on vancomycin and Zosyn. Infectious Disease was consulted given the patient's frequent urinary tract infections and she was recommended to complete a 14-day course of Zosyn with fluconazole. They also recommended stent removal while the patient was here on the IV antibiotics. Dr. Eaton of urology was consulted and he removed the stent 1 day prior to the patient's discharge, on 05/29/19, and she tolerated the procedure well. Wound Care consult was also ordered given the patient's known stage II pressure injury to bilateral buttocks and sacrum. It was recommended she apply gentamicin ointment mixed with clotrimazole cream to open wounds, followed by calcium alginate with ABD pad folded in half and to follow up with wound care clinic. She will continue to intermittently straight cath at home. Neurology was also consulted given episode of unresponsiveness early on during 2-week hospital admission. It was thought her change in mental status was likely due to toxic and infectious metabolic encephalopathy. Neurology service extensively discussed with the high risk of mortality with each recurrent infection and each hospitalization decreasing the patient's already poor baseline, but wants to continue full course of aggressive treatments for now. Neurology also recommended to avoid benzodiazepines and antipsychotic therapy to preserve her mental status. By the day of discharge a 10-point review of systems was performed. The patient did note that she feels weak, but denied fevers, chills, lightheadedness or pain. She reports that she feels back to her baseline and would like to go home with her . She and her were informed of possibility of getting the patient extra support and sending the patient to jail and they both declined this offer at this time. PHYSICAL EXAMINATION: Afebrile, heart rate 76, blood pressure 118/76, respiratory rate 18, oxygen saturation 95% on room air. In general, she is a chronically ill- appearing woman, who speaks in few-word sentences with quiet voice, appears in no acute distress. HEENT: With moist mucous membranes. OP clear. Neck: No JVD. Heart: Regular rate and rhythm. No murmurs, gallops or rubs. Lungs: Clear anteriorly. Abdomen: Soft, nontender, nondistended. Mcwilliams draining clear yellow urine. Extremities: Warm and well perfused without edema. Neuro exam: Alert and oriented to self and . PERTINENT STUDIES AND LABS: CBC notable for hemoglobin of 10.7 at baseline with normal MCV. BMP with creatinine of 0.8. Urine culture with Pseudomonas aeruginosa resistant to Cipro, cefazolin, and levofloxacin. Brain CT with no acute intracranial process evident, involutional change and stigmata of chronic small vessel ischemic disease. Renal ultrasound with small nonobstructing left renal calculus. No evidence for hydronephrosis. CT abdomen and pelvis with left nephrolithiasis, with left ureteral stent. There has been interval development of mild left-sided hydronephrosis, also notable for fibroid uterus and atherosclerosis. DISCHARGE PLAN: The patient should follow up with her primary care physician for ongoing management of her chronic medical problems, as well as her neurologist for her severe MS. She has also been referred to Dr. Eaton of urology and also the wound care clinic. She was referred for VNS services. Her medications should be continued as above. Of note, she completed 2 weeks of Zosyn and fluconazole during this admission. She and her were educated on return precautions, which include, but are not limited to, worsening mental status or fever. She is to eat a healthy diet, low in processed foods, and resume activity as tolerated. DISPOSITION: To home. CONDITION: Improved. TIME SPENT: Approximately 60 minutes were spent on discharge of this patient, more than half of which was spent for care coordination at bedside and for interview and exam. [id number]/[facility] #: [id number] TORI
== END 2019-05-30 17:36 | disposition home or self-care (01) | DRG 698 ==
LOC: ED 00:47 → MEDTELE 10:59
PROVIDERS: ADMIT Internal Medicine; ATTEND Internal Medicine
PROC: 4A00X4Z Measurement of Central Nervous Electrical Activity, External Approach (ICD-10-PCS; 2019-05-16)
PROC: 0TP98DZ Removal of Intraluminal Device from Ureter, Via Natural or Artificial Opening Endoscopic (ICD-10-PCS; principal; 2019-05-29 11:45)
DX: T83.592A Infection and inflammatory reaction due to indwelling ureteral stent, initial encounter (principal); A41.9 Sepsis, unspecified organism; G92 Toxic encephalopathy; R65.20 Severe sepsis without septic shock; N13.6 Pyonephrosis; I69.351 Hemiplegia and hemiparesis following cerebral infarction affecting right dominant side; Y73.1 Therapeutic (nonsurgical) and rehabilitative gastroenterology and urology devices associated with adverse incidents; Y92.9 Unspecified place or not applicable; L89.322 Pressure ulcer of left buttock, stage 2; L89.312 Pressure ulcer of right buttock, stage 2; L89.152 Pressure ulcer of sacral region, stage 2; G35 Multiple sclerosis; N31.9 Neuromuscular dysfunction of bladder, unspecified; G40.909 Epilepsy, unspecified, not intractable, without status epilepticus; I10 Essential (primary) hypertension; B96.5 Pseudomonas (aeruginosa) (mallei) (pseudomallei) as the cause of diseases classified elsewhere; E78.5 Hyperlipidemia, unspecified; N20.0 Calculus of kidney; Z79.84 Long term (current) use of oral hypoglycemic drugs; Z88.8 Allergy status to other drugs, medicaments and biological substances; Z88.2 Allergy status to sulfonamides; Z80.6 Family history of leukemia; Z87.891 Personal history of nicotine dependence; I69.392 Facial weakness following cerebral infarction; Z90.49 Acquired absence of other specified parts of digestive tract; Z85.3 Personal history of malignant neoplasm of breast; Z87.440 Personal history of urinary (tract) infections
CPT/HCPCS: 36415; 70450; 71045; 74018; 74176; 76775; 80048; 80053; 80156; 81003; 81015; 82140; 82607; 83605; 83735; 84100; 85025; 85027; 86140; 87040; 87077; 87086; 87106; 87186; 95813; 99284; A9270-GY; J0360; J0692; J0696; J1450; J1650; J2543; J2704; J3010; J3370; J3475

== ENCOUNTER 2021-02-03 13:46 | Observation (INO) ==
[2021-02-03] MEDS ORDERED: NS 0.9% 1000 ml BAG 1,000 ML IV ONE (17:20)
[2021-02-03 18:17] LABS: ABS Basophils 0.1 10^3/ul (0-0.2); ABS Eosinophils 0.2 10^3/ul (0-0.6); ABS Lymphocytes 2.2 10^3/ul (1.0-4.8); ABS Monocytes 1.2 10^3/ul (0-0.8); ABS Neutrophils 5.8 10^3/ul (1.5-7.7); Eosinophil % 2.6 %; Hematocrit 40 % (35-47); Hemoglobin 13.4 g/dL (12.0-16.0); Lymphocyte % 22.9 %; Mean Corpuscular HGB Conc 34 g/dL (31-36); Mean Corpuscular Hemoglobin 31 pg (27-31); Mean Corpuscular Volume 91 fL (80-97); Mean Platelet Volume 9.8 fL (7.4-10.4); Nucleated Red Blood Cells % 0.1; Platelet Count 210 10^3/uL (150-450); Red Blood Count 4.39 10^6 /uL (3.70-4.87); Red Cell Distribution Width 15 % (10-15); White Blood Count 9.5 10^3/uL (3.5-10.8)
[2021-02-03 18:33] LABS: ALT 19 U/L (7-52); Albumin/Globulin Ratio 1.1 (1-3); Alkaline Phosphatase 47 U/L (35-149); Blood Urea Nitrogen 42 mg/dL (6-24); CO2 Carbon Dioxide 24 mmol/L (22-32); Calcium 9.8 mg/dL (8.6-10.3); Chloride 103 mmol/L (101-111); EGFR Non-African American 46.3 (>60); Globulin 3.7 g/dL (2-4); Glucose 171 mg/dL (70-100); Sodium 135 mmol/L (135-145); Total Protein 7.7 g/dL (6.4-8.9)
[2021-02-03 18:34] LABS: Anion Gap 8 mmol/L (2-11)
[2021-02-03 18:39] LABS: Urine Appearance Cloudy; Urine Bilirubin Negative (Negative); Urine Blood Negative (Negative); Urine Color Yellow; Urine Glucose 2+(150 mg/dL) (Negative); Urine Ketones Negative (Negative); Urine Nitrite Positive (Negative); Urine Protein 1+(30 mg/dL) (Negative); Urine Specific Gravity 1.014 (1.002-1.030); Urine Urobilinogen Negative (Negative)
[2021-02-03 18:49] LABS: Urine Bacteria 1+ (Absent); Urine Red Blood Cell Absent (Absent); Urine Squamous Epithelial Cell Present (Absent); Urine White Blood Cell 2+(11-20/hpf) (Absent)
[2021-02-03 20:21] LABS: Potassium Redraw 4.3 mmol/L (3.5-5.0)
[2021-02-03] MEDS ORDERED: Piperacillin/Tazobac ADVAN 3.375 GM in NS 0.9% 100 ml BAG 100 ML IV ONE (20:46)
[2021-02-03] MEDS ORDERED: Magnesium Hydroxide LIQ 30 ML UDC PO PRN (22:26)
[2021-02-03] MEDS ORDERED: Cefepime 2 GM IV - ED ONCE IV ONE (23:00)
[2021-02-03] MEDS ORDERED: Lactated Ringers 1000 ml BAG 1,000 ML IV SCH (23:00)
[2021-02-03 23:23] LABS: C Reactive Protein 1.76 mg/L (<8.01)
[2021-02-04 00:55] LABS: Erythrocyte Sed Rate 28 mm/Hr (0-29)
[2021-02-04] MEDS: Enoxaparin 40 MG/0.4 ML SYR SUBCUT SCH ×2 (04:24→22:21)
[2021-02-04] MEDS ORDERED: Dextrose 50% Syringe 50 ml 25 GM/50 ML SYRINGE IV PUSH PRN (06:23)
[2021-02-04 06:59] LABS: Albumin 3.4 g/dL (3.2-5.2); Calcium 8.6 mg/dL (8.6-10.3); Potassium 4.4 mmol/L (3.5-5.0); Total Bilirubin 0.3 mg/dL (0.2-1.0)
[2021-02-04 07:05] LABS: Albumin/Globulin Ratio 1.1 (1-3); EGFR African American 75.1 (>60); EGFR Non-African American 62.1 (>60); Globulin 3.1 g/dL (2-4); Total Protein 6.5 g/dL (6.4-8.9)
[2021-02-04 07:16] LABS: ABS Eosinophils 0.2 10^3/ul (0-0.6); ABS Lymphocytes 1.9 10^3/ul (1.0-4.8); ABS Monocytes 0.7 10^3/ul (0-0.8); ABS Neutrophils 4.3 10^3/ul (1.5-7.7); Eosinophil % 2.1 %; Hematocrit 36 % (35-47); Hemoglobin 12.2 g/dL (12.0-16.0); Lymphocyte % 26.5 %; Mean Corpuscular HGB Conc 33 g/dL (31-36); Mean Corpuscular Hemoglobin 31 pg (27-31); Mean Corpuscular Volume 92 fL (80-97); Mean Platelet Volume 9.6 fL (7.4-10.4); Platelet Count 138 10^3/uL (150-450); Red Blood Count 3.95 10^6 /uL (3.70-4.87); Red Cell Distribution Width 15 % (10-15)
[2021-02-04] MEDS: Cefepime 2 GM in Dextrose 2 GM/50 ML BAG IV SCH (14:27)
[2021-02-05] MEDS: Cefepime 2 GM in Dextrose 2 GM/50 ML BAG IV SCH ×2 (02:09→13:54)
[2021-02-05 15:42] VITALS: BP 144/84
== END 2021-02-05 17:40 | disposition home or self-care (01) ==
LOC: ED 13:46 → INTOOBSV 22:20 → SSU 22:20
PROVIDERS: ADMIT Internal Medicine; ATTEND Hospitalist

== ENCOUNTER 2021-07-24 15:54 | Inpatient (IN) ==
[2021-07-24] MEDS ORDERED: Piperacillin/Tazobac ADVAN 3.375 GM in NS 0.9% 100 ml BAG 100 ML IV ONE (17:34)
[2021-07-24] MEDS ORDERED: Lactated Ringers 1000 ml BAG IV.FLUID IV ONE (17:34)
[2021-07-24 18:00] LABS: ABS Eosinophils 0.1 10^3/ul (0-0.6); ABS Lymphocytes 0.6 10^3/ul (1.0-4.8); ABS Monocytes 1.2 10^3/ul (0-0.8); ABS Neutrophils 14.6 10^3/ul (1.5-7.7); Eosinophil % 0.5 %; Hematocrit 42 % (35-47); Hemoglobin 13.8 g/dL (12.0-16.0); Lymphocyte % 3.4 %; Mean Corpuscular HGB Conc 33 g/dL (31-36); Mean Corpuscular Hemoglobin 31 pg (27-31); Mean Corpuscular Volume 93 fL (80-97); Mean Platelet Volume 9.3 fL (7.4-10.4); Platelet Count 204 10^3/uL (150-450); Red Blood Count 4.44 10^6 /uL (3.70-4.87); Red Cell Distribution Width 15 % (10-15); White Blood Count 16.5 10^3/uL (3.5-10.8)
[2021-07-24 18:12] LABS: Activated Partial Thrombo Time 30.8 seconds (26.0-38.0); INR 1.01 (0.86-1.15)
[2021-07-24] MEDS ORDERED: NS 0.9% 1000 ml BAG 2,250 ML IV ONE (18:15)
[2021-07-24 18:16] LABS: ALT 22 U/L (7-52); Albumin 4.5 g/dL (3.2-5.2); Albumin/Globulin Ratio 1.1 (1-3); Alkaline Phosphatase 66 U/L (35-149); Blood Urea Nitrogen 41 mg/dL (6-24); C Reactive Protein 21.77 mg/L (<8.01); CO2 Carbon Dioxide 25 mmol/L (22-32); Calcium 10.2 mg/dL (8.6-10.3); Chloride 102 mmol/L (101-111); Glucose 288 mg/dL (70-100); Sodium 137 mmol/L (135-145); Total Protein 8.5 g/dL (6.4-8.9); eGFR CKD-EPI 46.8 (>60)
[2021-07-24 18:54] LABS: Troponin I 0.03 ng/mL (<0.03)
[2021-07-24 19:05] LABS: AST 23 U/L (13-39); Anion Gap 10 mmol/L (2-11); Potassium 5.3 mmol/L (3.5-5.0)
[2021-07-24 21:20] LABS: Urine Appearance Cloudy; Urine Bilirubin Negative (Negative); Urine Blood 2+ (Negative); Urine Color Straw; Urine Glucose 3+(>=500 mg/dL) (Negative); Urine Ketones Negative (Negative); Urine Nitrite Positive (Negative); Urine Protein 1+(30 mg/dL) (Negative); Urine Urobilinogen Negative (Negative)
[2021-07-24 21:26] LABS: Urine Bacteria 1+ (Absent); Urine Red Blood Cell 3+(>10/hpf) (Absent); Urine Squamous Epithelial Cell Present (Absent); Urine White Blood Cell 3+(>20/hpf) (Absent)
[2021-07-24] MEDS ORDERED: HYDROcodone/ACETAMIN 5/325 mg TAB PO PRN (22:56)
[2021-07-24] MEDS ORDERED: Zosyn per Pharmacy NOTE FOLLOW UP SCH (23:00)
[2021-07-24] MEDS ORDERED: ZOSYN 3.375 GM Q8H per EXTENDED INFUSION IV ONE (23:00)
[2021-07-24] MEDS ORDERED: NS 0.9% 1000 ml BAG 1,000 ML IV SCH (23:00)
[2021-07-24] MEDS ORDERED: Dextrose 50% Syringe 50 ml 25 GM/50 ML SYRINGE IV PUSH PRN (23:04)
[2021-07-24] MEDS: Enoxaparin 40 MG/0.4 ML SYR SUBCUT SCH (23:25)
[2021-07-25] MEDS: ZOSYN 3.375 GM Q8H per EXTENDED INFUSION IV SCH ×3 (11:10→23:54)
[2021-07-25 12:30] LABS: ABS Lymphocytes 0.7 10^3/ul (1.0-4.8); ABS Monocytes 0.8 10^3/ul (0-0.8); ABS Neutrophils 9.4 10^3/ul (1.5-7.7); Eosinophil % 0.2 %; Hematocrit 35 % (35-47); Hemoglobin 12.1 g/dL (12.0-16.0); Lymphocyte % 6.7 %; Mean Corpuscular HGB Conc 35 g/dL (31-36); Mean Corpuscular Hemoglobin 32 pg (27-31); Mean Corpuscular Volume 92 fL (80-97); Mean Platelet Volume 8.8 fL (7.4-10.4); Platelet Count 167 10^3/uL (150-450); Red Blood Count 3.78 10^6 /uL (3.70-4.87); Red Cell Distribution Width 14 % (10-15); White Blood Count 10.9 10^3/uL (3.5-10.8)
[2021-07-25 12:52] LABS: Calcium 8.6 mg/dL (8.6-10.3); Magnesium 1.4 mg/dL (1.9-2.7); Potassium 3.9 mmol/L (3.5-5.0); eGFR CKD-EPI 74.7 (>60)
[2021-07-25 12:53] LABS: Calcium 8.6 mg/dL (8.6-10.3); Potassium 3.9 mmol/L (3.5-5.0); eGFR CKD-EPI 75.8 (>60)
[2021-07-25 13:00] LABS: Troponin I 0.04 ng/mL (<0.03)
[2021-07-25] MEDS ORDERED: Magnesium Sulfate IV 3 GM in NS 0.9% 100 ml BAG 100 ML IVPB ONE (13:05)
[2021-07-25 17:02] LABS: Troponin I 0.04 ng/mL (<0.03)
[2021-07-25] MEDS: Enoxaparin 40 MG/0.4 ML SYR SUBCUT SCH (21:18)
[2021-07-26 06:03] LABS: ABS Basophils 0.1 10^3/ul (0-0.2); ABS Eosinophils 0.1 10^3/ul (0-0.6); ABS Lymphocytes 1.5 10^3/ul (1.0-4.8); ABS Monocytes 0.9 10^3/ul (0-0.8); ABS Neutrophils 5.4 10^3/ul (1.5-7.7); Eosinophil % 0.7 %; Hematocrit 32 % (35-47); Hemoglobin 10.8 g/dL (12.0-16.0); Lymphocyte % 19.1 %; Mean Corpuscular HGB Conc 34 g/dL (31-36); Mean Corpuscular Hemoglobin 31 pg (27-31); Mean Corpuscular Volume 93 fL (80-97); Mean Platelet Volume 8.8 fL (7.4-10.4); Platelet Count 155 10^3/uL (150-450); Red Blood Count 3.45 10^6 /uL (3.70-4.87); Red Cell Distribution Width 14 % (10-15)
[2021-07-26 06:25] LABS: Calcium 8.2 mg/dL (8.6-10.3); Magnesium 2.1 mg/dL (1.9-2.7); Potassium 3.5 mmol/L (3.5-5.0); eGFR CKD-EPI 54.1 (>60)
[2021-07-26] MEDS: ZOSYN 3.375 GM Q8H per EXTENDED INFUSION IV SCH ×3 (09:31→21:16)
[2021-07-26] MEDS ORDERED: Lactated Ringers 1000 ml BAG 1,000 ML IV SCH (10:00)
[2021-07-26 14:12] LABS: Calcium 7.9 mg/dL (8.6-10.3); Potassium 3.4 mmol/L (3.5-5.0); eGFR CKD-EPI 59.2 (>60)
[2021-07-26] MEDS ORDERED: Potassium Chlor 20 meq TAB.ER PO ONE (14:27)
[2021-07-26] MEDS: Enoxaparin 40 MG/0.4 ML SYR SUBCUT SCH (21:07)
[2021-07-27] MEDS: ZOSYN 3.375 GM Q8H per EXTENDED INFUSION IV SCH (04:05)
[2021-07-27 06:44] LABS: Calcium 7.8 mg/dL (8.6-10.3); Magnesium 1.6 mg/dL (1.9-2.7); Potassium 3.6 mmol/L (3.5-5.0)
[2021-07-27 06:49] LABS: eGFR CKD-EPI 85.6 (>60)
[2021-07-27] MEDS ORDERED: Magnesium Sulfate 2 gm BAG 2 GM/50 ML BAG IVPB ONE (07:49)
[2021-07-27 15:14] VITALS: BP 140/79
== END 2021-07-27 14:45 | disposition home or self-care (01) | DRG 871 ==
LOC: ED 15:54 → SUATTDRO 22:49 → MEDTELE 22:49
PROVIDERS: ADMIT Internal Medicine; ATTEND Internal Medicine

== ENCOUNTER 2024-04-15 13:09 | Inpatient (IN) ==
[2024-04-15 16:41] LABS: Albumin 3.3 g/dL (3.2-5.2); Albumin/Globulin Ratio 0.9 (1-3); Calcium 9.1 mg/dL (8.6-10.3); Creatinine, Serum 1.17 mg/dL (0.51-0.95); Globulin 3.6 g/dL (2-4); Magnesium 1.6 mg/dL (1.9-2.7); Potassium 4.7 mmol/L (3.5-5.0); TSH Ultra Thyroid Stim Horm 2.41 mcIU/mL (0.34-5.60); Total Bilirubin 0.3 mg/dL (0.2-1.0); Total Protein 6.9 g/dL (6.4-8.9); eGFR CKD-EPI 49.3 (>60)
[2024-04-15] MEDS: NS 0.9% 1000 ml BAG 1,000 ML IV ONE (16:56)
[2024-04-15 17:01] LABS: Venous Bicarbonate HCO3 24.1 mmol/L (24-28)
[2024-04-15] MEDS: Cefepime 1 GM in Dextrose 1 GM/50 ML BAG IV ONE (17:01)
[2024-04-15 17:09] LABS: ABS Basophils 0.1 10^3/uL (0.0-0.1); ABS Eosinophils 0.1 10^3/uL (0.0-0.5); ABS Lymphocytes 1.7 10^3/uL (1.0-4.8); ABS Monocytes 1.4 10^3/uL (0.0-0.9); ABS Neutrophils 10.8 10^3/uL (1.5-7.6); ABS Nucleated RBC 0.02 10^3/ul; Eosinophil % 0.9 %; Hematocrit 31.6 % (35-45); Hemoglobin 10.6 g/dL (11.5-14.3); Lymphocyte % 12.1 %; Mean Corpuscular Hemoglobin 29.1 pg (27-33); Mean Corpuscular Hgb Conc 33.5 g/dL (31-36); Mean Corpuscular Volume 86.8 fL (80-97); Mean Platelet Volume 7.4 fL (7.5-11.2); Nucleated Red Blood Cells % 0.1 %/100WBC (0.0-0.8); Platelet Count 422 10^3/uL (150-450); Red Blood Count 3.65 10^6/uL (3.63-4.92); Red Cell Distribution Width 15.1 % (12-17); White Blood Count 14.1 10^3/uL (3.8-11.8)
[2024-04-15] MEDS: Vancomycin 1,750 MG in NS 0.9% 500 ml BAG 500 ML IVPB ONE (17:20)
[2024-04-15 17:32] LABS: Urine Appearance Clear; Urine Bilirubin Negative (Negative); Urine Blood Negative (Negative); Urine Color Light-Yellow; Urine Glucose 1+ (>=70 mg/dL) (Negative); Urine Ketones Negative (Negative); Urine Nitrite Negative (Negative); Urine Protein Trace (Negative); Urine Specific Gravity 1.014 (1.002-1.030); Urine Urobilinogen Negative (Negative); Urine pH 5.5 (5.0-8.0)
[2024-04-15] MEDS: Iodixanol (CONTRAST) 320 MG/ML 100 ML SDV IV ONE (18:14)
[2024-04-15] MEDS: Magnesium Sulfate IV 1GM/100ML 1 GM/100 ML BAG IV ONE ×2 (18:28→21:09)
[2024-04-15] MEDS ORDERED: Polyethylene Glycol 3350 17 GM PACKET PO PRN (21:07)
[2024-04-15 21:21] LABS: C Reactive Protein 69.56 mg/L (<8.01)
[2024-04-15] MEDS ORDERED: Dextrose 50% Syringe 50 ml 25 GM/50 ML SYRINGE IV PUSH PRN (21:26)
[2024-04-15] MEDS ORDERED: Vancomycin per Pharmacy 1 EA NOTE FOLLOW UP SCH (22:00)
[2024-04-15] MEDS: Enoxaparin 40 MG/0.4 ML SYR SUBCUT SCH (22:10)
[2024-04-15] MEDS: Lactated Ringers 1000 ml BAG 1,000 ML IV SCH (23:25)
[2024-04-15] MEDS: Vancomycin 1,000 MG in NS 0.9% 250 ml 250 ML IVPB ONE (23:27)
[2024-04-16] MEDS: cefTRIAXone 2 gm/50 mL D5W 2 GM/50 ML BAG IV SCH (03:15)
[2024-04-16 05:59] LABS: ABS Basophils 0.1 10^3/uL (0.0-0.1); ABS Eosinophils 0.1 10^3/uL (0.0-0.5); ABS Lymphocytes 1.6 10^3/uL (1.0-4.8); ABS Monocytes 1.3 10^3/uL (0.0-0.9); Eosinophil % 0.7 %; Hematocrit 27.6 % (35-45); Hemoglobin 9.5 g/dL (11.5-14.3); Lymphocyte % 12.1 %; Mean Corpuscular Hemoglobin 29.4 pg (27-33); Mean Corpuscular Hgb Conc 34.2 g/dL (31-36); Mean Corpuscular Volume 85.8 fL (80-97); Mean Platelet Volume 7.6 fL (7.5-11.2); Platelet Count 354 10^3/uL (150-450); Red Blood Count 3.22 10^6/uL (3.63-4.92)
[2024-04-16 06:19] LABS: C Reactive Protein 54.77 mg/L (<8.01); Calcium 7.4 mg/dL (8.6-10.3); Creatinine, Serum 0.89 mg/dL (0.51-0.95); Potassium 4.3 mmol/L (3.5-5.0); eGFR CKD-EPI 68.4 (>60)
[2024-04-16] MEDS: Vancomycin 1,000 MG in NS 0.9% 250 ml 250 ML IVPB ONE (08:15)
[2024-04-16] MEDS: ERGOCALCIFEROL 1000 UNIT PO SCH (08:49)
[2024-04-16] MEDS: Vancomycin 1000 MG in NS 0.9% 250 ML IVPB SCH (22:15)
[2024-04-17] MEDS: Gadoteridol (CONTRAST) 279.3 MG/ML 10 ML IV ONE (11:54)
[2024-04-17] MEDS: Lactated Ringers 1000 ml BAG 1,000 ML IV SCH (16:41)
[2024-04-18 06:47] LABS: ABS Basophils 0.1 10^3/uL (0.0-0.1); ABS Eosinophils 0.2 10^3/uL (0.0-0.5); ABS Lymphocytes 1.3 10^3/uL (1.0-4.8); ABS Monocytes 0.9 10^3/uL (0.0-0.9); ABS Neutrophils 5.8 10^3/uL (1.5-7.6); Eosinophil % 2.8 %; Hematocrit 26.4 % (35-45); Hemoglobin 9.1 g/dL (11.5-14.3); Lymphocyte % 16.2 %; Mean Corpuscular Hemoglobin 29.6 pg (27-33); Mean Corpuscular Hgb Conc 34.4 g/dL (31-36); Mean Corpuscular Volume 86.1 fL (80-97); Mean Platelet Volume 7.5 fL (7.5-11.2); Platelet Count 301 10^3/uL (150-450); Red Blood Count 3.06 10^6/uL (3.63-4.92); Red Cell Distribution Width 14.9 % (12-17); White Blood Count 8.3 10^3/uL (3.8-11.8)
[2024-04-18 07:03] LABS: Calcium 6.6 mg/dL (8.6-10.3); Creatinine, Serum 0.74 mg/dL (0.51-0.95); Potassium 3.9 mmol/L (3.5-5.0); eGFR CKD-EPI 85.4 (>60)
[2024-04-18] MEDS: SitaGLIPtin 25mg TAB (NF) 25 MG TAB PO SCH (08:19)
[2024-04-18 11:24] LABS: Creatinine, Serum 0.74 mg/dL (0.51-0.95); eGFR CKD-EPI 85.4 (>60)
[2024-04-18 11:28] LABS: Vancomycin Trough 31.4 mcg/mL
[2024-04-18] MEDS: Vancomycin Trough Check NOTE FOLLOW UP ONE (12:13)
[2024-04-19 06:46] LABS: Calcium 6.4 mg/dL (8.6-10.3); Creatinine, Serum 0.73 mg/dL (0.51-0.95); Potassium 4.2 mmol/L (3.5-5.0); Vancomycin Random 21.6 mcg/mL; eGFR CKD-EPI 86.8 (>60)
[2024-04-19] MEDS: Vancomycin Random Level NOTE FOLLOW UP ONE (08:13)
[2024-04-19] MEDS: Senna TAB 8.6 mg TAB PO PRN (10:03)
[2024-04-19] MEDS: Ondansetron 4 mg VIAL 2 MG/ML 2 ml VIAL IV PRN (15:04)
[2024-04-19] MEDS: Calcium Citrate 200 mg TAB PO SCH (22:04)
[2024-04-20 06:17] LABS: Calcium 6.9 mg/dL (8.6-10.3); Creatinine, Serum 0.83 mg/dL (0.51-0.95); Potassium 4.5 mmol/L (3.5-5.0); eGFR CKD-EPI 74.4 (>60)
[2024-04-20 06:35] LABS: Hematocrit 28.8 % (35-45); Hemoglobin 9.4 g/dL (11.5-14.3); Mean Corpuscular Hemoglobin 29.2 pg (27-33); Mean Corpuscular Hgb Conc 32.8 g/dL (31-36); Mean Platelet Volume 7.6 fL (7.5-11.2); Platelet Count 274 10^3/uL (150-450); Red Blood Count 3.23 10^6/uL (3.63-4.92); Red Cell Distribution Width 15.6 % (12-17); White Blood Count 8.6 10^3/uL (3.8-11.8)
[2024-04-20] MEDS: CALCIUM GLUCONATE 1GM/50ML NS 1 GM/50 ML BAG IV ONE (08:55)
[2024-04-20 14:47] VITALS: BP 91/51
== END 2024-04-20 16:35 | disposition home health service (06) | DRG 853 ==
LOC: EDHOLD 13:09 → ED 13:09 → SUATTDRO 20:36 → MEDTELE 22:41 → SUATTDRO 04-16 16:00
PROVIDERS: ADMIT Internal Medicine; ATTEND Internal Medicine

== ENCOUNTER 2024-06-15 13:57 | Inpatient (IN) ==
[2024-06-15 16:10] LABS: ABS Eosinophils 0.2 10^3/uL (0.0-0.5); ABS Lymphocytes 1.4 10^3/uL (1.0-4.8); ABS Monocytes 1.1 10^3/uL (0.0-0.9); ABS Neutrophils 8.6 10^3/uL (1.5-7.6); ABS Nucleated RBC 0.01 10^3/ul; Eosinophil % 1.5 %; Hematocrit 28.5 % (35-45); Hemoglobin 9.4 g/dL (11.5-14.3); Lymphocyte % 12.8 %; Mean Corpuscular Hemoglobin 26.9 pg (27-33); Mean Corpuscular Hgb Conc 32.8 g/dL (31-36); Mean Corpuscular Volume 82.2 fL (80-97); Mean Platelet Volume 7.8 fL (7.5-11.2); Nucleated Red Blood Cells % 0.1 %/100WBC (0.0-0.8); Platelet Count 399 10^3/uL (150-450); Red Blood Count 3.47 10^6/uL (3.63-4.92); Red Cell Distribution Width 18.1 % (12-17); White Blood Count 11.3 10^3/uL (3.8-11.8)
[2024-06-15] MEDS: Lidocaine 1% MPF 5 ML VIAL INJ ONE (16:23)
[2024-06-15 16:30] LABS: High Sens Troponin Baseline 6 pg/mL (<15)
[2024-06-15 16:32] LABS: ALT 17 U/L (7-52); AST 21 U/L (13-39); Albumin 2.5 g/dL (3.2-5.2); Albumin/Globulin Ratio 0.8 (1-3); Alkaline Phosphatase 75 U/L (35-149); Anion Gap 7 mmol/L (2-16); Blood Urea Nitrogen 20 mg/dL (6-24); C Reactive Protein 68.46 mg/L (<8.01); CO2 Carbon Dioxide 30 mmol/L (22-32); Calcium 8.4 mg/dL (8.6-10.3); Chloride 90 mmol/L (101-111); Creatinine, Serum 0.94 mg/dL (0.51-0.95); Globulin 3.3 g/dL (2-4); Glucose 183 mg/dL (70-100); INR 1.05 (0.85-1.14); Potassium 4.6 mmol/L (3.5-5.0); Sodium 127 mmol/L (135-145); Total Bilirubin 0.2 mg/dL (0.2-1.0); Total Protein 5.8 g/dL (6.4-8.9); eGFR CKD-EPI 64.1 (>60)
[2024-06-15 17:43] LABS: High Sensitivity Troponin 1 Hr 6 pg/mL (<15)
[2024-06-15] MEDS: Lactated Ringers 1000 ml BAG 1,000 ML IV ONE (19:03)
[2024-06-15 19:37] LABS: TSH Ultra Thyroid Stim Horm 4.59 mcIU/mL (0.34-5.60)
[2024-06-15 20:47] LABS: Urine Appearance Clear; Urine Bilirubin Negative (Negative); Urine Blood Negative (Negative); Urine Color Light-Yellow; Urine Glucose Negative (Negative); Urine Ketones Negative (Negative); Urine Nitrite Negative (Negative); Urine Protein Negative (Negative); Urine Specific Gravity 1.013 (1.002-1.030); Urine Urobilinogen Negative (Negative)
[2024-06-15] MEDS ORDERED: Dextrose 50% Syringe 50 ml 25 GM/50 ML SYRINGE IV PUSH PRN (22:57)
[2024-06-16 00:06] LABS: % Iron Saturation 15 % (15-55); .Transferrin 125 mg/dL (203-362); Carbamazepine 7.8 mcg/mL (4.0-12.0); Iron 27 ug/dL (50-212); Total Iron Binding Capacity 175 mcg/dL (250-450); Unsaturated Iron Binding 148 ug/dL
[2024-06-16] MEDS: Amoxicillin/Clavul 500/125 TAB (Augmentin 500 mg tab) PO SCH (00:22)
[2024-06-16 00:30] LABS: Folate > 20.00 ng/mL (5.90-24.80)
[2024-06-16 00:31] LABS: Vitamin B12 934 pg/mL (180-914)
[2024-06-16] MEDS: Senna TAB 8.6 mg TAB PO SCH (00:40)
[2024-06-16 01:36] LABS: Calcium 7.3 mg/dL (8.6-10.3); Creatinine, Serum 0.69 mg/dL (0.51-0.95); Potassium 4.5 mmol/L (3.5-5.0); eGFR CKD-EPI 91.6 (>60)
[2024-06-16] MEDS: Enoxaparin 80 MG/0.8 ML SYR SUBCUT SCH (03:11)
[2024-06-16] MEDS: Lactated Ringers 1000 ml BAG 1,000 ML IV ONE ×2 (03:30→13:18)
[2024-06-16 07:04] LABS: ABS Eosinophils 0.2 10^3/uL (0.0-0.5); ABS Lymphocytes 2.1 10^3/uL (1.0-4.8); ABS Monocytes 0.9 10^3/uL (0.0-0.9); ABS Neutrophils 6.3 10^3/uL (1.5-7.6); Eosinophil % 2.4 %; Hematocrit 24.3 % (35-45); Hemoglobin 8.2 g/dL (11.5-14.3); Lymphocyte % 21.5 %; Mean Corpuscular Hemoglobin 27.8 pg (27-33); Mean Corpuscular Hgb Conc 33.9 g/dL (31-36); Mean Platelet Volume 7.2 fL (7.5-11.2); Platelet Count 370 10^3/uL (150-450); Red Blood Count 2.96 10^6/uL (3.63-4.92); White Blood Count 9.6 10^3/uL (3.8-11.8)
[2024-06-16 07:43] LABS: Calcium 7.8 mg/dL (8.6-10.3); Creatinine, Serum 0.74 mg/dL (0.51-0.95); Magnesium 1.4 mg/dL (1.9-2.7); Potassium 4.3 mmol/L (3.5-5.0); eGFR CKD-EPI 85.4 (>60)
[2024-06-16] MEDS: Magnesium Sulf 4 GM/100 ML IV 4,000 MG/100 ML BAG IVPB ONE (10:49)
[2024-06-16 12:06] LABS: Osmolality Serum 273 mOsm/kg (275-295)
[2024-06-16] MEDS: Iodixanol 320 (CONTRAST) 100 ML SDV IV ONE (13:09)
[2024-06-16 14:10] LABS: Urine Osmo 338 mOsm/kg (150-1150)
[2024-06-16 17:42] LABS: Calcium 7.9 mg/dL (8.6-10.3); Magnesium 2.7 mg/dL (1.9-2.7); Potassium 4.4 mmol/L (3.5-5.0)
[2024-06-16 17:56] LABS: Ferritin 381.3 ng/mL (11-307)
[2024-06-16 18:28] LABS: Creatinine, Serum 0.74 mg/dL (0.51-0.95); eGFR CKD-EPI 85.4 (>60)
[2024-06-17 05:40] LABS: Hematocrit 23.3 % (35-45); Hemoglobin 7.9 g/dL (11.5-14.3); Mean Corpuscular Hemoglobin 27.9 pg (27-33); Mean Corpuscular Volume 82.2 fL (80-97); Mean Platelet Volume 7.2 fL (7.5-11.2); Platelet Count 360 10^3/uL (150-450); Red Blood Count 2.84 10^6/uL (3.63-4.92); Red Cell Distribution Width 17.9 % (12-17); White Blood Count 8.6 10^3/uL (3.8-11.8)
[2024-06-17 07:51] LABS: Calcium 7.3 mg/dL (8.6-10.3); Creatinine, Serum 0.68 mg/dL (0.51-0.95); Magnesium 2.1 mg/dL (1.9-2.7); Potassium 4.2 mmol/L (3.5-5.0); eGFR CKD-EPI 91.9 (>60)
[2024-06-17] MEDS: Polyethylene Glycol 3350 17 GM PACKET PO PRN (11:37)
[2024-06-18] MEDS: Enoxaparin 80 MG/0.8 ML SYR SUBCUT SCH (21:19)
[2024-06-19 06:47] LABS: Hemoglobin 8.3 g/dL (11.5-14.3); Mean Corpuscular Hemoglobin 26.9 pg (27-33); Mean Corpuscular Hgb Conc 32.1 g/dL (31-36); Mean Corpuscular Volume 83.9 fL (80-97); Mean Platelet Volume 7.3 fL (7.5-11.2); Platelet Count 350 10^3/uL (150-450); Red Cell Distribution Width 18.2 % (12-17); White Blood Count 9.9 10^3/uL (3.8-11.8)
[2024-06-19 07:56] LABS: Calcium 7.3 mg/dL (8.6-10.3); Creatinine, Serum 0.64 mg/dL (0.51-0.95); Magnesium 1.5 mg/dL (1.9-2.7); Potassium 4.1 mmol/L (3.5-5.0); eGFR CKD-EPI 93.3 (>60)
[2024-06-19] MEDS: Sulfur Hexaflouride MICROSPHR 25 MG VIAL IV PRN (10:38)
[2024-06-19] MEDS: SMOG Enema (MgOH-NS-Gly-MinO) 330 ML ENEMA PR ONE (14:20)
[2024-06-19] MEDS: Magnesium Sulf 4 GM/100 ML IV 4,000 MG/100 ML BAG IVPB ONE (16:38)
[2024-06-20 08:28] LABS: ABS Eosinophils 0.1 10^3/uL (0.0-0.5); ABS Lymphocytes 2.1 10^3/uL (1.0-4.8); ABS Monocytes 0.9 10^3/uL (0.0-0.9); ABS Neutrophils 5.3 10^3/uL (1.5-7.6); Eosinophil % 1.5 %; Hematocrit 25.8 % (35-45); Hemoglobin 8.5 g/dL (11.5-14.3); Lymphocyte % 24.6 %; Mean Corpuscular Hemoglobin 27.4 pg (27-33); Mean Platelet Volume 7.3 fL (7.5-11.2); Platelet Count 337 10^3/uL (150-450); Red Blood Count 3.11 10^6/uL (3.63-4.92); Red Cell Distribution Width 18.5 % (12-17); White Blood Count 8.5 10^3/uL (3.8-11.8)
[2024-06-20 09:11] LABS: Calcium 7.2 mg/dL (8.6-10.3); Creatinine, Serum 0.63 mg/dL (0.51-0.95); Magnesium 2.3 mg/dL (1.9-2.7); Potassium 3.9 mmol/L (3.5-5.0); eGFR CKD-EPI 93.6 (>60)
[2024-06-20 10:47] VITALS: BP 103/58
== END 2024-06-20 14:25 | disposition home or self-care (01) | DRG 70 ==
LOC: ED 13:57 → EDHOLD 13:57 → SUATTDRO 22:04 → MEDTELE 06-16 00:07 → SUATTDRO 06-17 12:41
PROVIDERS: ADMIT Internal Medicine; ATTEND Internal Medicine

== ENCOUNTER 2024-08-03 16:14 | Inpatient (IN) ==
[2024-08-03 18:36] LABS: ABS Basophils 0.1 10^3/uL (0.0-0.1); ABS Eosinophils 0.1 10^3/uL (0.0-0.5); ABS Lymphocytes 1.4 10^3/uL (1.0-4.8); ABS Monocytes 1.5 10^3/uL (0.0-0.9); ABS Neutrophils 8.6 10^3/uL (1.5-7.6); ABS Nucleated RBC 0.01 10^3/ul; Eosinophil % 0.6 %; Hematocrit 33.5 % (35-45); Lymphocyte % 12.1 %; Mean Corpuscular Hemoglobin 28.6 pg (27-33); Mean Corpuscular Hgb Conc 32.7 g/dL (31-36); Mean Corpuscular Volume 87.3 fL (80-97); Mean Platelet Volume 8.3 fL (7.5-11.2); Nucleated Red Blood Cells % 0.1 %/100WBC (0.0-0.8); Platelet Count 303 10^3/uL (150-450); Red Blood Count 3.84 10^6/uL (3.63-4.92); Red Cell Distribution Width 19.5 % (12-17); White Blood Count 11.5 10^3/uL (3.8-11.8)
[2024-08-03 18:49] LABS: INR 1.12 (0.85-1.14)
[2024-08-03 19:32] LABS: ALT 25 U/L (7-52); Albumin 2.3 g/dL (3.2-5.2); Albumin/Globulin Ratio 0.9 (1-3); Alkaline Phosphatase 64 U/L (35-149); Blood Urea Nitrogen 19 mg/dL (6-24); CO2 Carbon Dioxide 27 mmol/L (22-32); Chloride 99 mmol/L (101-111); Creatinine, Serum 0.71 mg/dL (0.51-0.95); Globulin 2.7 g/dL (2-4); Glucose 168 mg/dL (70-100); Sodium 131 mmol/L (135-145); Total Bilirubin 0.4 mg/dL (0.2-1.0); eGFR CKD-EPI 89.7 (>60)
[2024-08-03 19:34] LABS: Anion Gap 5 mmol/L (2-16)
[2024-08-03 19:34] LABS: Urine Appearance Clear; Urine Bilirubin Negative (Negative); Urine Blood Negative (Negative); Urine Color Light-Yellow; Urine Glucose Negative (Negative); Urine Ketones Negative (Negative); Urine Nitrite Negative (Negative); Urine Protein Trace (Negative); Urine Specific Gravity 1.014 (1.002-1.030); Urine Urobilinogen Negative (Negative)
[2024-08-03 19:37] LABS: Urine Bacteria 1+ /HPF (Absent); Urine Red Blood Cell 2+(6-10/hpf) /HPF (0-Trace); Urine Squamous Epithelial Cell Present /HPF (Absent); Urine White Blood Cell 3+(>20/hpf) /HPF (0-Trace)
[2024-08-04] MEDS ORDERED: Dextrose 50% Syringe 50 ml 25 GM/50 ML SYRINGE IV PUSH PRN (01:30)
[2024-08-04] MEDS: Enoxaparin 40 MG/0.4 ML SYR SUBCUT SCH (02:23)
[2024-08-04] MEDS ORDERED: cefTRIAXone 1 gm/50 mL D5W 1 GM/50 ML BAG IV SCH (05:30)
[2024-08-04] MEDS: cefTRIAXone 1 GM Q24H (ADVAN) IVPB SCH (05:45)
[2024-08-04 07:42] LABS: ABS Eosinophils 0.1 10^3/uL (0.0-0.5); ABS Lymphocytes 1.6 10^3/uL (1.0-4.8); ABS Monocytes 1.2 10^3/uL (0.0-0.9); ABS Neutrophils 6.1 10^3/uL (1.5-7.6); ABS Nucleated RBC 0.01 10^3/ul; Eosinophil % 1.1 %; Hematocrit 32.9 % (35-45); Lymphocyte % 17.8 %; Mean Corpuscular Hgb Conc 33.4 g/dL (31-36); Mean Corpuscular Volume 86.8 fL (80-97); Mean Platelet Volume 8.3 fL (7.5-11.2); Nucleated Red Blood Cells % 0.1 %/100WBC (0.0-0.8); Platelet Count 251 10^3/uL (150-450); Red Blood Count 3.79 10^6/uL (3.63-4.92); Red Cell Distribution Width 19.3 % (12-17)
[2024-08-04 08:11] LABS: Anion Gap 8 mmol/L (2-16); Blood Urea Nitrogen 20 mg/dL (6-24); CO2 Carbon Dioxide 25 mmol/L (22-32); Calcium 7.8 mg/dL (8.6-10.3); Chloride 98 mmol/L (101-111); Creatinine, Serum 0.67 mg/dL (0.51-0.95); Glucose 213 mg/dL (70-100); Sodium 131 mmol/L (135-145); eGFR CKD-EPI 92.2 (>60)
[2024-08-04 10:04] LABS: Urine Osmo 381 mOsm/kg (150-1150)
[2024-08-04] MEDS: NS 0.45% 1000 ml BAG 1,000 ML IV SCH (13:42)
[2024-08-04] MEDS: Enoxaparin 80 MG/0.8 ML SYR SUBCUT SCH (15:05)
[2024-08-04] MEDS: Enoxaparin 100 MG/ML SYR SUBCUT SCH (17:27)
[2024-08-05] MEDS: cefTRIAXone 1 gm/50 mL D5W 1 GM/50 ML BAG IV SCH (05:35)
[2024-08-05] MEDS ORDERED: cefTRIAXone 1 GM Q24H (ADVAN) IVPB SCH (06:00)
[2024-08-05 07:14] LABS: ABS Basophils 0.1 10^3/uL (0.0-0.1); ABS Eosinophils 0.1 10^3/uL (0.0-0.5); ABS Lymphocytes 1.9 10^3/uL (1.0-4.8); ABS Monocytes 0.9 10^3/uL (0.0-0.9); ABS Neutrophils 5.4 10^3/uL (1.5-7.6); ABS Nucleated RBC 0.01 10^3/ul; Eosinophil % 1.5 %; Hematocrit 29.8 % (35-45); Lymphocyte % 22.6 %; Mean Corpuscular Hgb Conc 33.5 g/dL (31-36); Mean Corpuscular Volume 86.5 fL (80-97); Mean Platelet Volume 8.1 fL (7.5-11.2); Nucleated Red Blood Cells % 0.1 %/100WBC (0.0-0.8); Platelet Count 290 10^3/uL (150-450); Red Blood Count 3.45 10^6/uL (3.63-4.92); White Blood Count 8.3 10^3/uL (3.8-11.8)
[2024-08-05 07:27] LABS: Potassium, Whole Blood 4.1 mmol/L (3.4-4.5)
[2024-08-05 08:07] LABS: Calcium 7.1 mg/dL (8.6-10.3); Creatinine, Serum 0.55 mg/dL (0.51-0.95); eGFR CKD-EPI 96.7 (>60)
[2024-08-05] MEDS: NS 0.9% 1000 ml BAG 1,000 ML IV SCH (09:17)
[2024-08-05] MEDS ORDERED: Senna TAB 8.6 mg TAB PO PRN (09:43)
[2024-08-05] MEDS: Gadoteridol (CONTRAST) 279.3 MG/ML 10 ML IV ONE (11:08)
[2024-08-05 16:46] LABS: Calcium 6.9 mg/dL (8.6-10.3); Creatinine, Serum 0.48 mg/dL (0.51-0.95); Magnesium 1.4 mg/dL (1.9-2.7); Phosphorus 2.6 mg/dL (2.5-5.0); Potassium 3.8 mmol/L (3.5-5.0)
[2024-08-05] MEDS ORDERED: Zosyn per Pharmacy NOTE FOLLOW UP SCH (17:00)
[2024-08-05] MEDS: Piperacillin/Tazobac 3.375 BAG 3.375 GM/100 ML BAG IV ONE (18:32)
[2024-08-05] MEDS: Polyethylene Glycol 3350 17 GM PACKET PO SCH (21:25)
[2024-08-05] MEDS: ZOSYN 3.375 GM Q8H per EXTENDED INFUSION IV SCH (22:27)
[2024-08-06] MEDS: Multivitamins/Minerals TAB PO SCH (08:05)
[2024-08-06] MEDS: Cholecalciferol (VIT D3) 1,000 unit TAB PO SCH (08:05)
[2024-08-06 08:12] LABS: Hematocrit 26.6 % (35-45); Hemoglobin 8.9 g/dL (11.5-14.3); Mean Corpuscular Hemoglobin 29.1 pg (27-33); Mean Corpuscular Hgb Conc 33.5 g/dL (31-36); Mean Corpuscular Volume 86.8 fL (80-97); Mean Platelet Volume 7.8 fL (7.5-11.2); Platelet Count 260 10^3/uL (150-450); Red Blood Count 3.06 10^6/uL (3.63-4.92); Red Cell Distribution Width 18.8 % (12-17); White Blood Count 6.6 10^3/uL (3.8-11.8)
[2024-08-06 10:43] LABS: ALT 18 U/L (7-52); AST 23 U/L (13-39); Albumin 1.9 g/dL (3.2-5.2); Albumin/Globulin Ratio 0.8 (1-3); Alkaline Phosphatase 52 U/L (35-149); Anion Gap 10 mmol/L (2-16); Blood Urea Nitrogen 10 mg/dL (6-24); CO2 Carbon Dioxide 21 mmol/L (22-32); Calcium 6.7 mg/dL (8.6-10.3); Chloride 103 mmol/L (101-111); Creatinine, Serum 0.54 mg/dL (0.51-0.95); Globulin 2.4 g/dL (2-4); Glucose 172 mg/dL (70-100); Magnesium 1.3 mg/dL (1.9-2.7); Phosphorus 2.2 mg/dL (2.5-5.0); Potassium 3.5 mmol/L (3.5-5.0); Sodium 134 mmol/L (135-145); Total Bilirubin 0.2 mg/dL (0.2-1.0); Total Protein 4.3 g/dL (6.4-8.9); eGFR CKD-EPI 97.2 (>60)
[2024-08-06 12:10] LABS: Folate > 20.00 ng/mL (5.90-24.80)
[2024-08-06] MEDS: CALCIUM GLUCONATE 1GM/50ML NS 1 GM/50 ML BAG IV ONE (12:34)
[2024-08-06] MEDS: Calcium Carb (TUMS) 500 mg CHEW TAB PO SCH (12:42)
[2024-08-06] MEDS ORDERED: Calcium Carb (TUMS) 500 mg CHEW TAB PO PRN (13:28)
[2024-08-06] MEDS: Potassium Phosphate IV 10 MMOL in NS 0.9% 250 ml 250 ML IVPB ONE (14:50)
[2024-08-06] MEDS: Magnesium Sulf 4 GM/100 ML IV 4,000 MG/100 ML BAG IVPB ONE (14:54)
[2024-08-06] MEDS: Magnesium Sulfate 2 gm BAG 2 GM/50 ML BAG IVPB ONE (23:31)
[2024-08-07] MEDS: Magnesium Sulfate IV 1GM/100ML 1 GM/100 ML BAG IV ONE (00:28)
[2024-08-07 06:26] LABS: Hematocrit 25.2 % (35-45); Hemoglobin 8.4 g/dL (11.5-14.3); Mean Corpuscular Hemoglobin 28.7 pg (27-33); Mean Corpuscular Hgb Conc 33.4 g/dL (31-36); Mean Corpuscular Volume 85.8 fL (80-97); Mean Platelet Volume 7.5 fL (7.5-11.2); Platelet Count 246 10^3/uL (150-450); Red Blood Count 2.93 10^6/uL (3.63-4.92); Red Cell Distribution Width 18.7 % (12-17); White Blood Count 5.4 10^3/uL (3.8-11.8)
[2024-08-07 07:02] LABS: Albumin 1.9 g/dL (3.2-5.2); Albumin/Globulin Ratio 0.8 (1-3); Calcium 6.4 mg/dL (8.6-10.3); Creatinine, Serum 0.47 mg/dL (0.51-0.95); Globulin 2.4 g/dL (2-4); Magnesium 2.9 mg/dL (1.9-2.7); Phosphorus 1.8 mg/dL (2.5-5.0); Potassium 3.2 mmol/L (3.5-5.0); Total Bilirubin 0.2 mg/dL (0.2-1.0); Total Protein 4.3 g/dL (6.4-8.9); eGFR CKD-EPI 100.5 (>60)
[2024-08-07] MEDS: Potassium Phosphate IV 15 MMOL in NS 0.9% 250 ml 250 ML IVPB ONE (07:54)
[2024-08-07] MEDS: Potassium Chloride LIQUID 20 MEQ/15 ML LIQUID PO ONE (08:11)
[2024-08-07] MEDS: Potassium & Sodium Phos 250 mg = 1 PACKET PO SCH (08:30)
[2024-08-07] MEDS: CALCIUM GLUCONATE 1GM/50ML NS 1 GM/50 ML BAG IV SCH (08:54)
[2024-08-07 10:20] LABS: Calcium (PTH Intact) 6.4 mg/dL (8.6-10.3)
[2024-08-07 10:23] LABS: Vitamin D Total 25(OH) 41.1 ng/mL (20-50)
[2024-08-07 13:50] VITALS: BP 130/77
[2024-08-07 15:30] LABS: Calcium 7.2 mg/dL (8.6-10.3); Creatinine, Serum 0.48 mg/dL (0.51-0.95); Phosphorus 2.3 mg/dL (2.5-5.0); Potassium 4.1 mmol/L (3.5-5.0)
[2024-08-07] MEDS: Potassium & Sodium Phos 250 mg = 1 PACKET PO ONE (16:40)
== END 2024-08-07 17:05 | disposition home or self-care (01) | DRG 91 ==
LOC: EDHOLD 16:14 → ED 16:14 → SUATTDRO 23:35 → MED 08-04 08:35
PROVIDERS: ADMIT Internal Medicine; ATTEND Internal Medicine

== ENCOUNTER 2024-08-29 14:04 | Observation (INO) ==
[2024-08-29] MEDS: Piperacillin/Tazobac 3.375 BAG 3.375 GM/100 ML BAG IV ONE (16:40)
[2024-08-29 17:03] LABS: ABS Lymphocytes 1.1 10^3/uL (1.0-4.8); ABS Monocytes 0.9 10^3/uL (0.0-0.9); ABS Neutrophils 14.3 10^3/uL (1.5-7.6); Eosinophil % 0.2 %; Hematocrit 28.4 % (35-45); Hemoglobin 9.4 g/dL (11.5-14.3); Lymphocyte % 6.9 %; Mean Corpuscular Hemoglobin 27.5 pg (27-33); Mean Corpuscular Hgb Conc 32.9 g/dL (31-36); Mean Corpuscular Volume 83.7 fL (80-97); Mean Platelet Volume 7.5 fL (7.5-11.2); Platelet Count 435 10^3/uL (150-450); Red Cell Distribution Width 18.1 % (12-17); White Blood Count 16.4 10^3/uL (3.8-11.8)
[2024-08-29] MEDS: Lactated Ringers 1000 ml BAG IV.FLUID IV ONE (17:09)
[2024-08-29 17:24] LABS: Albumin/Globulin Ratio 0.6 (1-3); C Reactive Protein 161.61 mg/L (<8.01); Calcium 7.8 mg/dL (8.6-10.3); Creatinine, Serum 0.5 mg/dL (0.51-0.95); Globulin 3.4 g/dL (2-4); Magnesium 1.5 mg/dL (1.9-2.7); Potassium 4.2 mmol/L (3.5-5.0); Total Bilirubin 0.3 mg/dL (0.2-1.0); Total Protein 5.4 g/dL (6.4-8.9)
[2024-08-29 17:27] LABS: Urine Appearance Extra Turbid; Urine Bilirubin Negative (Negative); Urine Blood 1+ (Negative); Urine Color Yellow; Urine Glucose Negative (Negative); Urine Ketones 1+ (Negative); Urine Nitrite 2+ (Negative); Urine Protein 1+ (>=30 mg/dL) (Negative); Urine Specific Gravity 1.015 (1.002-1.030); Urine Urobilinogen Negative (Negative)
[2024-08-29 17:43] LABS: Urine Bacteria 3+ /HPF (Absent); Urine Red Blood Cell 3+(>10/hpf) /HPF (0-Trace); Urine Squamous Epithelial Cell Present /HPF (Absent); Urine White Blood Cell 3+(>20/hpf) /HPF (0-Trace)
[2024-08-29 18:34] LABS: INR 1.38 (0.85-1.14)
[2024-08-29 18:40] LABS: High Sensitivity Troponin 1 Hr 3 pg/mL (<15)
[2024-08-29] MEDS: ZOSYN 3.375 GM Q8H per EXTENDED INFUSION IV SCH (22:48)
[2024-08-29] MEDS: Calcium/Vitamin D TAB 250/125 TAB PO SCH (22:49)
[2024-08-29] MEDS ORDERED: Zosyn per Pharmacy NOTE FOLLOW UP SCH (23:00)
[2024-08-30] MEDS: Enoxaparin 40 MG/0.4 ML SYR SUBCUT SCH (00:05)
[2024-08-30] MEDS: NS 0.9% 1000 ml BAG 1,000 ML IV SCH (00:05)
[2024-08-30] MEDS: Magnesium Sulf 4 GM/100 ML IV 4,000 MG/100 ML BAG IVPB ONE (01:18)
[2024-08-30] MEDS: Lactated Ringers 1000 ml BAG 1,000 ML IV SCH (01:47)
[2024-08-30 02:27] LABS: Urine Appearance Turbid; Urine Bilirubin Negative (Negative); Urine Blood 1+ (Negative); Urine Color Yellow; Urine Glucose Negative (Negative); Urine Ketones Negative (Negative); Urine Nitrite Negative (Negative); Urine Protein 1+ (>=30 mg/dL) (Negative); Urine Specific Gravity 1.018 (1.002-1.030); Urine Urobilinogen Negative (Negative); Urine pH 6.5 (5.0-8.0)
[2024-08-30 02:37] LABS: Urine Bacteria Absent /HPF (Absent); Urine Red Blood Cell 3+(>10/hpf) /HPF (0-Trace); Urine Squamous Epithelial Cell Present /HPF (Absent); Urine Transitional Epithelial Present /HPF (Absent); Urine White Blood Cell 3+(>20/hpf) /HPF (0-Trace)
[2024-08-30 03:01] LABS: Urine Osmo 461 mOsm/kg (150-1150)
[2024-08-30 03:01] LABS: Osmolality Serum 278 mOsm/kg (275-295)
[2024-08-30] MEDS: ZOSYN 3.375 GM Q8H per EXTENDED INFUSION IV SCH (05:17)
[2024-08-30] MEDS ORDERED: Dextrose 50% Syringe 50 ml 25 GM/50 ML SYRINGE IV PUSH PRN (07:36)
[2024-08-30 07:41] LABS: ABS Eosinophils 0.1 10^3/uL (0.0-0.5); ABS Lymphocytes 1.1 10^3/uL (1.0-4.8); ABS Monocytes 0.6 10^3/uL (0.0-0.9); ABS Neutrophils 10.7 10^3/uL (1.5-7.6); ABS Nucleated RBC 0.01 10^3/ul; Eosinophil % 0.8 %; Hematocrit 27.2 % (35-45); Hemoglobin 9.1 g/dL (11.5-14.3); Lymphocyte % 8.7 %; Mean Corpuscular Hemoglobin 28.3 pg (27-33); Mean Corpuscular Hgb Conc 33.4 g/dL (31-36); Mean Corpuscular Volume 84.7 fL (80-97); Mean Platelet Volume 7.3 fL (7.5-11.2); Nucleated Red Blood Cells % 0.1 %/100WBC (0.0-0.8); Platelet Count 362 10^3/uL (150-450); Red Blood Count 3.22 10^6/uL (3.63-4.92); Red Cell Distribution Width 18.5 % (12-17); White Blood Count 12.6 10^3/uL (3.8-11.8)
[2024-08-30 08:47] LABS: Calcium 7.3 mg/dL (8.6-10.3); Creatinine, Serum 0.46 mg/dL (0.51-0.95); Magnesium 2.7 mg/dL (1.9-2.7); Potassium 3.7 mmol/L (3.5-5.0)
[2024-08-30 10:21] LABS: Urine Creatinine Concentration 36.79 mg/dL (20.00-320.00)
[2024-08-30 11:13] LABS: Carbamazepine 7.6 mcg/mL (4.0-12.0)
[2024-08-30] MEDS: Vitamin THERAPEUTIC TAB PO SCH (13:10)
[2024-08-30] MEDS: Enoxaparin 80 MG/0.8 ML SYR SUBCUT SCH (18:04)
[2024-08-31 06:04] LABS: ABS Basophils 0.1 10^3/uL (0.0-0.1); ABS Eosinophils 0.1 10^3/uL (0.0-0.5); ABS Lymphocytes 1.5 10^3/uL (1.0-4.8); ABS Monocytes 0.7 10^3/uL (0.0-0.9); ABS Neutrophils 7.9 10^3/uL (1.5-7.6); Eosinophil % 1.2 %; Hematocrit 24.9 % (35-45); Hemoglobin 8.4 g/dL (11.5-14.3); Lymphocyte % 14.2 %; Mean Corpuscular Hemoglobin 28.3 pg (27-33); Mean Corpuscular Hgb Conc 33.7 g/dL (31-36); Mean Platelet Volume 7.1 fL (7.5-11.2); Platelet Count 382 10^3/uL (150-450); Red Blood Count 2.96 10^6/uL (3.63-4.92); Red Cell Distribution Width 18.4 % (12-17); White Blood Count 10.2 10^3/uL (3.8-11.8)
[2024-08-31 06:29] LABS: Anion Gap 5 mmol/L (2-16); Blood Urea Nitrogen 8 mg/dL (6-24); CO2 Carbon Dioxide 25 mmol/L (22-32); Calcium 6.7 mg/dL (8.6-10.3); Chloride 104 mmol/L (101-111); Creatinine, Serum 0.42 mg/dL (0.51-0.95); Glucose 106 mg/dL (70-100); Potassium 3.2 mmol/L (3.5-5.0); Sodium 134 mmol/L (135-145); eGFR CKD-EPI 103.2 (>60)
[2024-08-31 07:36] LABS: ALT 18 U/L (7-52); AST 26 U/L (13-39); Albumin < 1.7 g/dL (3.5-5.7); Albumin/Globulin Ratio 0.7 (1-3); Alkaline Phosphatase 94 U/L (35-149); Globulin 2.5 g/dL (2-4); Magnesium 1.8 mg/dL (1.9-2.7); Total Bilirubin 0.3 mg/dL (0.2-1.0); Total Protein 4.2 g/dL (6.4-8.9)
[2024-08-31] MEDS: Magnesium Sulfate IV 1GM/100ML 1 GM/100 ML BAG IV ONE (10:29)
[2024-08-31] MEDS: Potassium Chlor 20 meq TAB.ER PO ONE (10:29)
[2024-09-01 06:30] LABS: ABS Eosinophils 0.1 10^3/uL (0.0-0.5); ABS Lymphocytes 1.7 10^3/uL (1.0-4.8); ABS Monocytes 0.6 10^3/uL (0.0-0.9); ABS Neutrophils 7.4 10^3/uL (1.5-7.6); Eosinophil % 1.3 %; Hematocrit 24.7 % (35-45); Hemoglobin 8.2 g/dL (11.5-14.3); Lymphocyte % 17.4 %; Mean Corpuscular Hemoglobin 28.2 pg (27-33); Mean Corpuscular Hgb Conc 33.3 g/dL (31-36); Mean Corpuscular Volume 84.7 fL (80-97); Platelet Count 422 10^3/uL (150-450); Red Blood Count 2.92 10^6/uL (3.63-4.92); Red Cell Distribution Width 18.6 % (12-17); White Blood Count 9.9 10^3/uL (3.8-11.8)
[2024-09-01 07:05] LABS: ALT 19 U/L (7-52); AST 26 U/L (13-39); Albumin < 1.7 g/dL (3.5-5.7); Albumin/Globulin Ratio 0.6 (1-3); Alkaline Phosphatase 103 U/L (35-149); Anion Gap 5 mmol/L (2-16); Blood Urea Nitrogen 8 mg/dL (6-24); CO2 Carbon Dioxide 24 mmol/L (22-32); Calcium 6.2 mg/dL (8.6-10.3); Chloride 108 mmol/L (101-111); Creatinine, Serum 0.41 mg/dL (0.51-0.95); Globulin 2.7 g/dL (2-4); Glucose 112 mg/dL (70-100); Magnesium 1.6 mg/dL (1.9-2.7); Potassium 3.7 mmol/L (3.5-5.0); Sodium 137 mmol/L (135-145); Total Bilirubin 0.2 mg/dL (0.2-1.0); Total Protein 4.4 g/dL (6.4-8.9); eGFR CKD-EPI 103.8 (>60)
[2024-09-01] MEDS: Magnesium Sulf 4 GM/100 ML IV 4,000 MG/100 ML BAG IVPB ONE (09:44)
[2024-09-01 09:59] VITALS: BP 129/78
== END 2024-09-01 14:00 | disposition home or self-care (01) ==
LOC: ED 14:04 → EDHOLD 14:04 → SUATTDRO 20:37 → MED 22:44
PROVIDERS: ADMIT Internal Medicine; ATTEND Hospitalist

== ENCOUNTER 2024-09-29 09:35 | Inpatient (IN) ==
[2024-09-29 10:19] LABS: Hematocrit 34.8 % (35-45); Hemoglobin 11.2 g/dL (11.5-14.3); Mean Corpuscular Hemoglobin 27.5 pg (27-33); Mean Corpuscular Hgb Conc 32.1 g/dL (31-36); Mean Corpuscular Volume 85.5 fL (80-97); Platelet Count 710 10^3/uL (150-450); Red Blood Count 4.07 10^6/uL (3.63-4.92); Red Cell Distribution Width 18.7 % (12-17)
[2024-09-29 10:26] LABS: INR 1.04 (0.85-1.14)
[2024-09-29 10:42] LABS: High Sens Troponin Baseline 9 pg/mL (<15)
[2024-09-29 10:51] LABS: ALT 26 U/L (7-52); Albumin/Globulin Ratio 0.5 (1-3); Alkaline Phosphatase 112 U/L (35-149); Anion Gap 7 mmol/L (2-16); Blood Urea Nitrogen 8 mg/dL (6-24); CO2 Carbon Dioxide 30 mmol/L (22-32); Calcium 7.3 mg/dL (8.6-10.3); Chloride 95 mmol/L (101-111); Creatine Kinase 30 U/L (10-223); Creatinine, Serum 0.42 mg/dL (0.51-0.95); Globulin 4.2 g/dL (2-4); Glucose 60 mg/dL (70-100); Magnesium 1.5 mg/dL (1.9-2.7); Sodium 132 mmol/L (135-145); Total Bilirubin 0.3 mg/dL (0.2-1.0); Total Protein 6.2 g/dL (6.4-8.9); eGFR CKD-EPI 103.2 (>60)
[2024-09-29 10:53] LABS: ABS Lymphocytes 1.2 10^3/uL (1.0-4.8); ABS Monocytes 0.6 10^3/uL (0.0-0.9); ABS Neutrophils 11.2 10^3/uL (1.5-7.6); ABS Nucleated RBC 0.01 10^3/ul; Eosinophil % 0.2 %; Lymphocyte % 9.4 %; Nucleated Red Blood Cells % 0.1 %/100WBC (0.0-0.8)
[2024-09-29 11:07] LABS: TSH Ultra Thyroid Stim Horm 6.24 mcIU/mL (0.34-5.60)
[2024-09-29 12:06] LABS: Potassium Redraw 3.9 mmol/L (3.5-5.0)
[2024-09-29 14:25] LABS: Urine Appearance Extra Turbid; Urine Bilirubin Negative (Negative); Urine Blood 1+ (Negative); Urine Glucose Negative (Negative); Urine Ketones 1+ (Negative); Urine Nitrite Negative (Negative); Urine Protein 1+ (>=30 mg/dL) (Negative); Urine Specific Gravity 1.012 (1.002-1.030); Urine Urobilinogen Negative (Negative)
[2024-09-29 14:27] LABS: Urine Bacteria 2+ /HPF (Absent); Urine Red Blood Cell 3+(>10/hpf) /HPF (0-Trace); Urine Squamous Epithelial Cell Present /HPF (Absent); Urine White Blood Cell 3+(>20/hpf) /HPF (0-Trace)
[2024-09-29 14:28] LABS: Urine Color Yellow
[2024-09-29] MEDS: Lactated Ringers 1000 ml BAG 1,000 ML IV SCH (14:56)
[2024-09-29] MEDS: cefTRIAXone 1 gm/50 mL D5W 1 GM/50 ML BAG IV ONE (15:47)
[2024-09-29] MEDS ORDERED: Senna TAB 8.6 mg TAB PO PRN (17:33)
[2024-09-29] MEDS: Piperacillin/Tazobac 3.375 BAG 3.375 GM/100 ML BAG IV ONE (18:22)
[2024-09-29] MEDS: Magnesium Sulf 4 GM/100 ML IV 4,000 MG/100 ML BAG IVPB ONE (18:57)
[2024-09-29] MEDS ORDERED: Zosyn per Pharmacy NOTE FOLLOW UP SCH (19:00)
[2024-09-29] MEDS: Enoxaparin 30 MG/0.3 ML SYR SUBCUT SCH (19:13)
[2024-09-29] MEDS: Dextrose 50% Syringe 50 ml 25 GM/50 ML SYRINGE IV PUSH ONE (19:37)
[2024-09-29] MEDS ORDERED: ZOSYN 3.375 GM Q8H per EXTENDED INFUSION IV SCH (22:00)
[2024-09-29] MEDS: NS 0.9% 1000 ml BAG 1,000 ML IV SCH (23:44)
[2024-09-29] MEDS: ZOSYN 3.375 GM Q8H per EXTENDED INFUSION IV SCH (23:44)
[2024-09-30 06:46] LABS: Hematocrit 26.2 % (35-45); Hemoglobin 9.2 g/dL (11.5-14.3); Mean Corpuscular Hemoglobin 31.7 pg (27-33); Mean Corpuscular Volume 90.4 fL (80-97); Mean Platelet Volume 6.9 fL (7.5-11.2); Platelet Count 471 10^3/uL (150-450); Red Cell Distribution Width 15.7 % (12-17); White Blood Count 10.7 10^3/uL (3.8-11.8)
[2024-09-30 07:24] LABS: Calcium 8.3 mg/dL (8.6-10.3); Creatinine, Serum 0.76 mg/dL (0.51-0.95); Magnesium 1.7 mg/dL (1.9-2.7); Potassium 4.3 mmol/L (3.5-5.0); eGFR CKD-EPI 82.7 (>60)
[2024-09-30 07:47] LABS: ABS Basophils 0.1 10^3/uL (0.0-0.1); ABS Lymphocytes 0.9 10^3/uL (1.0-4.8); ABS Monocytes 1.4 10^3/uL (0.0-0.9); ABS Neutrophils 8.4 10^3/uL (1.5-7.6); ABS Nucleated RBC 0.01 10^3/ul; Eosinophil % 0.2 %; Nucleated Red Blood Cells % 0.1 %/100WBC (0.0-0.8); RBC Morphology Normal (Normal)
[2024-09-30] MEDS: Magnesium Sulfate 2 gm BAG 2 GM/50 ML BAG IVPB ONE (08:52)
[2024-09-30 10:36] LABS: Urine Appearance Extra Turbid; Urine Bilirubin Negative (Negative); Urine Blood Trace (Negative); Urine Color Yellow; Urine Glucose Negative (Negative); Urine Ketones Trace (Negative); Urine Nitrite Negative (Negative); Urine Protein 1+ (>=30 mg/dL) (Negative); Urine Specific Gravity 1.023 (1.002-1.030); Urine Urobilinogen Negative (Negative); Urine pH 5.5 (5.0-8.0)
[2024-09-30 10:44] LABS: Urine Bacteria Absent /HPF (Absent); Urine Red Blood Cell 3+(>10/hpf) /HPF (0-Trace); Urine Squamous Epithelial Cell Present /HPF (Absent); Urine White Blood Cell 3+(>20/hpf) /HPF (0-Trace)
[2024-09-30] MEDS: Lactated Ringers 1000 ml BAG 1,000 ML IV ONE ×2 (11:34→18:30)
[2024-09-30] MEDS: Enoxaparin 60 MG/0.6 ML SYR SUBCUT SCH (21:36)
[2024-10-01 06:56] LABS: ABS Basophils 0.1 10^3/uL (0.0-0.1); ABS Eosinophils 0.1 10^3/uL (0.0-0.5); ABS Monocytes 0.6 10^3/uL (0.0-0.9); ABS Neutrophils 5.9 10^3/uL (1.5-7.6); Eosinophil % 0.6 %; Hematocrit 23.6 % (35-45); Hemoglobin 8.1 g/dL (11.5-14.3); Lymphocyte % 23.7 %; Mean Corpuscular Hemoglobin 29.4 pg (27-33); Mean Corpuscular Hgb Conc 34.3 g/dL (31-36); Mean Corpuscular Volume 85.7 fL (80-97); Mean Platelet Volume 6.9 fL (7.5-11.2); Platelet Count 401 10^3/uL (150-450); Red Blood Count 2.76 10^6/uL (3.63-4.92); Red Cell Distribution Width 18.5 % (12-17); White Blood Count 8.6 10^3/uL (3.8-11.8)
[2024-10-01 07:15] LABS: Calcium 6.5 mg/dL (8.6-10.3); Creatinine, Serum 0.4 mg/dL (0.51-0.95); Potassium 3.4 mmol/L (3.5-5.0); eGFR CKD-EPI 104.4 (>60)
[2024-10-01] MEDS: KCL 20 MEQ/100 ML IVPREMIX 20 MEQ/100 ML BAG IV ONE (08:41)
[2024-10-01] MEDS: cefTRIAXone 1 gm/50 mL D5W 1 GM/50 ML BAG IV SCH (14:03)
[2024-10-02] MEDS ORDERED: Magnesium Hydroxide LIQ 30 ML UDC PO PRN (00:20)
[2024-10-02 07:29] LABS: ABS Basophils 0.1 10^3/uL (0.0-0.1); ABS Eosinophils 0.1 10^3/uL (0.0-0.5); ABS Lymphocytes 2.6 10^3/uL (1.0-4.8); ABS Monocytes 0.7 10^3/uL (0.0-0.9); ABS Neutrophils 4.7 10^3/uL (1.5-7.6); ABS Nucleated RBC 0.01 10^3/ul; Eosinophil % 0.9 %; Hematocrit 21.9 % (35-45); Hemoglobin 7.4 g/dL (11.5-14.3); Lymphocyte % 31.8 %; Mean Corpuscular Hemoglobin 29.3 pg (27-33); Mean Corpuscular Hgb Conc 34.1 g/dL (31-36); Nucleated Red Blood Cells % 0.1 %/100WBC (0.0-0.8); Platelet Count 395 10^3/uL (150-450); Red Blood Count 2.54 10^6/uL (3.63-4.92); Red Cell Distribution Width 18.5 % (12-17); White Blood Count 8.2 10^3/uL (3.8-11.8)
[2024-10-02 08:00] LABS: Anion Gap 3 mmol/L (2-16); Blood Urea Nitrogen 7 mg/dL (6-24); CO2 Carbon Dioxide 28 mmol/L (22-32); Calcium 6.5 mg/dL (8.6-10.3); Chloride 104 mmol/L (101-111); Creatinine, Serum 0.38 mg/dL (0.51-0.95); Glucose 155 mg/dL (70-100); Potassium 3.3 mmol/L (3.5-5.0); Sodium 135 mmol/L (135-145); eGFR CKD-EPI 105.7 (>60)
[2024-10-02 08:19] LABS: % Iron Saturation 25 % (15-55); .Transferrin < 75 mg/dL (203-362); Iron 26 ug/dL (50-212); Total Iron Binding Capacity 105 mcg/dL (250-450); Unsaturated Iron Binding 79 ug/dL
[2024-10-02 08:38] LABS: Ferritin 273.7 ng/mL (11-307)
[2024-10-02] MEDS: Lactated Ringers 1000 ml BAG 1,000 ML IV ONE (10:19)
[2024-10-02 10:49] LABS: Hematocrit 22.1 % (35-45); Hemoglobin 7.2 g/dL (11.5-14.3)
[2024-10-02] MEDS: Pantoprazole VIAL 40 MG VIAL IV SCH ×2 (10:52→21:53)
[2024-10-02] MEDS: Pantoprazole VIAL 40 MG VIAL IV ONE (11:30)
[2024-10-02] MEDS ORDERED: Dextrose 50% Syringe 50 ml 25 GM/50 ML SYRINGE IV PUSH PRN (13:18)
[2024-10-02 17:26] LABS: Hematocrit 27.2 % (35-45); Hemoglobin 9.3 g/dL (11.5-14.3)
[2024-10-02 23:21] LABS: Hematocrit 25.5 % (35-45); Hemoglobin 8.6 g/dL (11.5-14.3)
[2024-10-03 05:36] LABS: ABS Eosinophils 0.1 10^3/uL (0.0-0.5); ABS Lymphocytes 1.9 10^3/uL (1.0-4.8); ABS Monocytes 0.7 10^3/uL (0.0-0.9); ABS Neutrophils 4.6 10^3/uL (1.5-7.6); Eosinophil % 1.8 %; Hematocrit 25.5 % (35-45); Hemoglobin 8.8 g/dL (11.5-14.3); Lymphocyte % 25.4 %; Mean Corpuscular Hemoglobin 29.3 pg (27-33); Mean Corpuscular Hgb Conc 34.3 g/dL (31-36); Mean Corpuscular Volume 85.5 fL (80-97); Platelet Count 317 10^3/uL (150-450); Red Blood Count 2.99 10^6/uL (3.63-4.92); Red Cell Distribution Width 16.9 % (12-17); White Blood Count 7.3 10^3/uL (3.8-11.8)
[2024-10-03 05:56] LABS: Calcium 6.6 mg/dL (8.6-10.3); Creatinine, Serum 0.33 mg/dL (0.51-0.95); Magnesium 1.3 mg/dL (1.9-2.7); Potassium 3.8 mmol/L (3.5-5.0); eGFR CKD-EPI 109.4 (>60)
[2024-10-03] MEDS: Magnesium Sulf 4 GM/100 ML IV 4,000 MG/100 ML BAG IVPB ONE (09:20)
[2024-10-03 10:55] LABS: Phosphorus 1.3 mg/dL (2.5-5.0)
[2024-10-03] MEDS: Potassium Phosphate IV 15 MMOL in NS 0.9% 250 ml 250 ML IVPB ONE (15:08)
[2024-10-03] MEDS: Iodixanol 320 (CONTRAST) 100 ML SDV IV ONE (19:03)
[2024-10-03 23:31] LABS: Hematocrit 25.1 % (35-45); Hemoglobin 8.6 g/dL (11.5-14.3)
[2024-10-04 08:48] LABS: ABS Eosinophils 0.1 10^3/uL (0.0-0.5); ABS Monocytes 0.5 10^3/uL (0.0-0.9); ABS Neutrophils 5.7 10^3/uL (1.5-7.6); ABS Nucleated RBC 0.01 10^3/ul; Eosinophil % 1.2 %; Hematocrit 30.7 % (35-45); Hemoglobin 10.5 g/dL (11.5-14.3); Lymphocyte % 13.1 %; Mean Corpuscular Hemoglobin 29.3 pg (27-33); Mean Corpuscular Hgb Conc 34.1 g/dL (31-36); Mean Corpuscular Volume 85.8 fL (80-97); Mean Platelet Volume 7.1 fL (7.5-11.2); Nucleated Red Blood Cells % 0.1 %/100WBC (0.0-0.8); Platelet Count 331 10^3/uL (150-450); Red Blood Count 3.57 10^6/uL (3.63-4.92); Red Cell Distribution Width 17.5 % (12-17); White Blood Count 7.2 10^3/uL (3.8-11.8)
[2024-10-04 09:27] LABS: Anion Gap 4 mmol/L (2-16); Blood Urea Nitrogen 5 mg/dL (6-24); CO2 Carbon Dioxide 29 mmol/L (22-32); Calcium 6.8 mg/dL (8.6-10.3); Chloride 104 mmol/L (101-111); Creatinine, Serum < 0.30 mg/dL (0.51-0.95); Glucose 146 mg/dL (70-100); Magnesium 1.8 mg/dL (1.9-2.7); Phosphorus 2.4 mg/dL (2.5-5.0); Potassium 3.4 mmol/L (3.5-5.0); Sodium 137 mmol/L (135-145); eGFR CKD-EPI 111.9 (>60)
[2024-10-04] MEDS: CALCIUM GLUCONATE 1GM/50ML NS 1 GM/50 ML BAG IV ONE (11:49)
[2024-10-04] MEDS ORDERED: Lidocaine 2% PF 5 ML VIAL ONE (16:16)
[2024-10-04] MEDS: Potassium Chlor 10 meq TAB PO ONE (20:08)
[2024-10-04] MEDS: Potassium & Sodium Phos 250 mg = 1 PACKET PO ONE (20:08)
[2024-10-05] MEDS: Magnesium Sulfate 2 gm BAG 2 GM/50 ML BAG IVPB ONE (01:03)
[2024-10-05] MEDS: Potassium Phosphate IV 15 MMOL in NS 0.9% 250 ml 250 ML IVPB ONE (02:10)
[2024-10-05 11:06] LABS: Hematocrit 27.8 % (35-45); Hemoglobin 9.6 g/dL (11.5-14.3)
[2024-10-05 11:38] LABS: Anion Gap 5 mmol/L (2-16); Blood Urea Nitrogen 5 mg/dL (6-24); CO2 Carbon Dioxide 27 mmol/L (22-32); Calcium 6.8 mg/dL (8.6-10.3); Chloride 105 mmol/L (101-111); Creatinine, Serum 0.31 mg/dL (0.51-0.95); Glucose 165 mg/dL (70-100); Sodium 137 mmol/L (135-145); eGFR CKD-EPI 111.1 (>60)
[2024-10-05 12:09] LABS: Magnesium 1.9 mg/dL (1.9-2.7); Phosphorus 3.3 mg/dL (2.5-5.0)
[2024-10-06 11:30] LABS: ABS Lymphocytes 0.4 10^3/uL (1.0-4.8); ABS Monocytes 0.7 10^3/uL (0.0-0.9); ABS Neutrophils 8.5 10^3/uL (1.5-7.6); Eosinophil % 0.3 %; Hematocrit 29.4 % (35-45); Hemoglobin 9.9 g/dL (11.5-14.3); Lymphocyte % 4.3 %; Mean Corpuscular Hemoglobin 29.8 pg (27-33); Mean Corpuscular Hgb Conc 33.7 g/dL (31-36); Mean Corpuscular Volume 88.5 fL (80-97); Mean Platelet Volume 7.1 fL (7.5-11.2); Platelet Count 290 10^3/uL (150-450); Red Blood Count 3.32 10^6/uL (3.63-4.92); Red Cell Distribution Width 17.6 % (12-17); White Blood Count 9.6 10^3/uL (3.8-11.8)
[2024-10-06 11:49] LABS: Anion Gap 4 mmol/L (2-16); Blood Urea Nitrogen 7 mg/dL (6-24); CO2 Carbon Dioxide 26 mmol/L (22-32); Calcium 6.9 mg/dL (8.6-10.3); Chloride 106 mmol/L (101-111); Creatinine, Serum 0.42 mg/dL (0.51-0.95); Glucose 158 mg/dL (70-100); Potassium 4.1 mmol/L (3.5-5.0); Sodium 136 mmol/L (135-145); eGFR CKD-EPI 103.2 (>60)
[2024-10-06 12:14] LABS: ALT 23 U/L (7-52); AST 34 U/L (13-39); Albumin < 1.7 g/dL (3.5-5.7); Albumin/Globulin Ratio 0.7 (1-3); Alkaline Phosphatase 76 U/L (35-149); Globulin 2.6 g/dL (2-4); Magnesium 1.5 mg/dL (1.9-2.7); Total Bilirubin 0.2 mg/dL (0.2-1.0); Total Protein 4.3 g/dL (6.4-8.9)
[2024-10-06] MEDS: Potassium & Sodium Phos 250 mg = 1 PACKET PO SCH (12:39)
[2024-10-06] MEDS: CALCIUM GLUCONATE 1GM/50ML NS 1 GM/50 ML BAG IV ONE (13:28)
[2024-10-06] MEDS: Magnesium Sulf 4 GM/100 ML IV 4,000 MG/100 ML BAG IVPB ONE (14:58)
[2024-10-06] MEDS ORDERED: Zosyn per Pharmacy NOTE FOLLOW UP SCH (15:00)
[2024-10-06] MEDS: Piperacillin/Tazobac 3.375 BAG 3.375 GM/100 ML BAG IV ONE (16:37)
[2024-10-06] MEDS: ZOSYN 3.375 GM Q8H per EXTENDED INFUSION IV SCH (20:36)
[2024-10-06] MEDS: Lactated Ringers 1000 ml BAG 1,000 ML IV ONE (21:59)
[2024-10-07] MEDS: ZOSYN 3.375 GM Q8H per EXTENDED INFUSION IV SCH (04:48)
[2024-10-07 04:58] LABS: Hematocrit 20.7 % (35-45); Hemoglobin 7.1 g/dL (11.5-14.3); Mean Corpuscular Hgb Conc 34.4 g/dL (31-36); Mean Corpuscular Volume 87.2 fL (80-97); Mean Platelet Volume 7.3 fL (7.5-11.2); Platelet Count 252 10^3/uL (150-450); Red Blood Count 2.37 10^6/uL (3.63-4.92); Red Cell Distribution Width 17.8 % (12-17)
[2024-10-07 05:27] LABS: Calcium 6.8 mg/dL (8.6-10.3); Creatinine, Serum 0.39 mg/dL (0.51-0.95); Phosphorus 2.7 mg/dL (2.5-5.0); Potassium 3.8 mmol/L (3.5-5.0); eGFR CKD-EPI 105.1 (>60)
[2024-10-07 11:09] LABS: Hematocrit 24.7 % (35-45); Hemoglobin 8.5 g/dL (11.5-14.3)
[2024-10-07] MEDS ORDERED: Iodixanol 320 (CONTRAST) 100 ML SDV IV ONE (11:22)
[2024-10-07] MEDS: Pantoprazole VIAL 40 MG VIAL IV SCH (15:07)
[2024-10-07 17:29] LABS: Hematocrit 29.5 % (35-45); Hemoglobin 9.5 g/dL (11.5-14.3)
[2024-10-07] MEDS ORDERED: Acetaminophen IV 1 GM/100ML 1,000 MG/100 ML BAG IV PRN (22:11)
[2024-10-08 07:56] LABS: Calcium 6.7 mg/dL (8.6-10.3); Creatinine, Serum 0.37 mg/dL (0.51-0.95); Magnesium 1.6 mg/dL (1.9-2.7); Potassium 3.6 mmol/L (3.5-5.0); eGFR CKD-EPI 106.4 (>60)
[2024-10-08 11:00] LABS: ABS Lymphocytes 0.6 10^3/uL (1.0-4.8); ABS Monocytes 0.5 10^3/uL (0.0-0.9); ABS Neutrophils 3.6 10^3/uL (1.5-7.6); ABS Nucleated RBC 0.01 10^3/ul; Eosinophil % 0.3 %; Hematocrit 26.1 % (35-45); Hemoglobin 8.7 g/dL (11.5-14.3); Lymphocyte % 12.9 %; Mean Corpuscular Hemoglobin 29.1 pg (27-33); Mean Corpuscular Hgb Conc 33.2 g/dL (31-36); Mean Corpuscular Volume 87.6 fL (80-97); Mean Platelet Volume 7.2 fL (7.5-11.2); Nucleated Red Blood Cells % 0.2 %/100WBC (0.0-0.8); Platelet Count 244 10^3/uL (150-450); Red Blood Count 2.98 10^6/uL (3.63-4.92); Red Cell Distribution Width 17.7 % (12-17); White Blood Count 4.7 10^3/uL (3.8-11.8)
[2024-10-08] MEDS: KCL 20 MEQ/100 ML IVPREMIX 20 MEQ/100 ML BAG IV ONE (11:12)
[2024-10-08] MEDS: Magnesium Sulfate 2 gm BAG 2 GM/50 ML BAG IVPB ONE (11:12)
[2024-10-08] MEDS: ZOSYN 3.375 GM Q6H - Intermittant 30 min Infusion IV SCH (13:24)
[2024-10-08] MEDS: Magnesium Sulfate IV 1GM/100ML 1 GM/100 ML BAG IV ONE (14:31)
[2024-10-09 07:07] LABS: ABS Eosinophils 0.1 10^3/uL (0.0-0.5); ABS Lymphocytes 0.9 10^3/uL (1.0-4.8); ABS Monocytes 0.5 10^3/uL (0.0-0.9); ABS Neutrophils 2.3 10^3/uL (1.5-7.6); Eosinophil % 1.4 %; Hematocrit 24.1 % (35-45); Hemoglobin 8.1 g/dL (11.5-14.3); Lymphocyte % 23.5 %; Mean Corpuscular Hemoglobin 29.7 pg (27-33); Mean Corpuscular Hgb Conc 33.8 g/dL (31-36); Mean Platelet Volume 7.2 fL (7.5-11.2); Platelet Count 232 10^3/uL (150-450); Red Blood Count 2.74 10^6/uL (3.63-4.92); Red Cell Distribution Width 18.2 % (12-17); White Blood Count 3.8 10^3/uL (3.8-11.8)
[2024-10-09 07:31] LABS: Calcium 6.5 mg/dL (8.6-10.3); Creatinine, Serum 0.41 mg/dL (0.51-0.95); Magnesium 1.8 mg/dL (1.9-2.7); Potassium 3.5 mmol/L (3.5-5.0); eGFR CKD-EPI 103.8 (>60)
[2024-10-09 10:27] VITALS: BP 117/63
[2024-10-09] MEDS ORDERED: Amoxicillin/Clavul 875/125 TAB (Augmentin 875 tab) PO SCH (21:00)
== END 2024-10-09 12:50 | disposition home or self-care (01) | DRG 637 ==
LOC: EDHOLD 09:35 → ED 09:35 → SUATTDRO 17:33 → MED 20:55 → SUATTDRO 10-01 10:00
PROVIDERS: ADMIT Hospitalist; ATTEND Student in an Organized Health Care Education/Training Program
PROC: O.GIEGD (2024-10-04 15:05)
PROC: O.GIFSC (2024-10-04 15:05)